=== PATIENT | male | born 1970 | race Caucasian/White ===

== ENCOUNTER 2020-05-25 18:30 | Outpatient (RCR) | payer BC, SELFPAY | END 2020-05-28 23:55 | disposition home or self-care (01) | LOC: HO.PAOS 18:30 | PROVIDERS: Visit Provider Psychologist | DX: F41.9 Anxiety disorder, unspecified (principal); F43.10 Post-traumatic stress disorder, unspecified; F33.1 Major depressive disorder, recurrent, moderate | CPT/HCPCS: 90834 ==

== ENCOUNTER 2021-03-01 14:01 | Inpatient (IN) | payer OTHER, SELFPAY ==
--- NOTE | ~2021-03-01 | XR_ITS ---
EXAMINATION: XR CHEST CLINICAL INFORMATION: SOB. COMPARISON: None TECHNIQUE: Frontal view of the chest was obtained. FINDINGS: The chest x-ray is rotated to the left. The lungs are expanded with slight increased patchy opacity in the left lung base retrocardiac area.. Rest of lungs are clear. The heart size and pulmonary vascularity is normal. XR/XR chest 1V IMPRESSION: Mild patchy opacity left lower lobe retrocardiac area. Question artifact versus infiltrate. Consider repeat 2 views .
--- NOTE | ~2021-03-01 | CT_ITS ---
EXAMINATION: CT ANGIOGRAM OF THE CHEST WITH AND WITHOUT CONTRAST (CT PULMONARY ANGIOGRAM FOR PE) CLINICAL INFORMATION: Reason for Exam elevated D-dimer COMPARISON: Chest radiograph yesterday TECHNIQUE: Prior to contrast administration, noncontrast localization images were obtained. Subsequently, multidetector volumetric imaging was performed from the thoracic inlet to below the diaphragms following the administration of 85 mL Omnipaque 350 intravenous contrast. No contrast reaction reported Sagittal, coronal, and MIP oblique sagittal reformatted images were obtained on the CT workstation, uploaded to PACS, and reviewed. This CT examination was performed using dose optimization techniques as appropriate, variously including the following: *Automated exposure control *Adjustment of mA and/or kV according to patient size (this includes techniques or standardized protocols for targeted exams where dose is matched to indication/reason for exam; i.e. extremities or head) *Use of iterative reconstruction technique Total exam dose-length product 1274 mGy-cm FINDINGS: QUALITY OF STUDY/CONTRAST BOLUS: Suboptimal to Satisfactory. The bolus is not optimal and there is marked respiratory artifact due to the patient's inability to hold their breath. PULMONARY ARTERIES: No central or large segmental pulmonary emboli. THORACIC AORTA: No aneurysm or dissection. LUNG: Left basilar atelectasis is present. A tiny 3 mm right upper lobe nodule is seen (18:129). PLEURA: No pleural effusion or pneumothorax. MEDIASTINUM: Normal heart size. No pericardial effusion. No hilar or mediastinal lymphadenopathy. No evidence of septal bowing or right heart strain. CHEST WALL/AXILLA: No axillary or internal mammary lymphadenopathy. OSSEOUS STRUCTURES: No acute or suspicious osseous abnormality. Mild degenerative changes present in the spine. UPPER ABDOMEN: Unremarkable. No reflux of contrast into the hepatic veins to suggest elevated right heart pressures. CT/CT angio chest PE protocol IMPRESSION: No evidence of pulmonary emboli. Suboptimal study probably because of marked motion artifact. VTE: negative, but limited as described above.
--- NOTE | ~2021-03-01 | CT_ITS ---
CT HEAD WITHOUT IV CONTRAST INDICATION: Delirium. COMPARISON: None available. TECHNIQUE: Multidetector CT acquisitions of the head was obtained without IV contrast. This CT examination was performed using dose optimization techniques as appropriate, variously including the following: *Automated exposure control *Adjustment of mA and/or kV according to patient size (this includes techniques or standardized protocols for targeted exams where dose is matched to indication/reason for exam; i.e. extremities or head) *Use of iterative reconstruction technique FINDINGS: There is no intracranial hemorrhage, hydrocephalus, extra-axial surface collection, midline shift, or other herniation pattern. Yanez to white matter differentiation is diffusely maintained without evidence of an evolved acute territorial infarct. The basilar cisterns are preserved. Soft tissue calcification within the left face. No acute osseous abnormality. The paranasal sinuses and the mastoid air cells are well aerated. CT/CT head/brain wo con IMPRESSION: No acute intracranial abnormality.
--- NOTE | 2021-03-01 14:12 | ED_ITS ---
HPI - Psych General Chief Complaint: Psychiatric Symptoms Stated Complaint: SECTION 12,SEEN IN THE COMMUNITY BY N Time Seen by Provider: 03/01/21 14:12 Source: patient and EMS Mode of arrival: EMS Limitations: other (not speaking, mumbling nodding yes or no) History of Present Illness MD complaint: feels depressed, anxiety and other (delusions) Onset (ago): unknown Duration: getting worse History of same: Yes Relieving factors: none Exacerbating factors: none Context: other Associated psychiatric symptoms: depression Associated symptoms: denies other symptoms Treatments prior to arrival: placed on mental health hold (bed search from community) Related Data Home Medications Medication Instructions Recorded Confirmed atorvastatin 20 mg tablet 1 tab PO BEDTIME 03/01/21 03/01/21 empagliflozin 10 mg tablet 1 tab PO QAM 03/01/21 03/01/21 (Jardiance) glipizide 10 mg tablet, extended 1 tab PO DAILY 03/01/21 03/01/21 release 24 hr lorazepam 1 mg tablet 1 mg PO TID 03/01/21 03/01/21 metformin 1,000 mg tablet 1 tab PO BID 03/01/21 03/01/21 multivitamin 1 tab PO DAILY 03/01/21 03/01/21 olanzapine 10 mg tablet 10 mg PO BEDTIME 03/01/21 03/01/21 sertraline 100 mg tablet 2 tab PO QAM 03/01/21 03/01/21 Allergies Allergy/AdvReac Type Severity Reaction Status Date / Time No Known Allergies Allergy Unverified 03/05/20 17:38 [No Known Allergies*] Review of Systems Review of Systems: ROS unable to be obtained due to patient not cooperating [facility] Past Medical History Attestation statement: The following information was validated with the patient. Medical History (Updated 03/01/21 @ 15:17 by Yudith Sanders DO) Bipolar 1 disorder Depression Diabetes Social History Social History (Updated 03/01/21 @ 14:19 by Yudith Sanders DO) Patient Tobacco Use Status: Tobacco use Unknown Use of substances other than those prescribed or required for medical reasons: Unknown Advance Directives: No Advance Directives Information Provided: Yes Physical Exam Vital Signs: Vital Signs: Last Vital Signs Pulse 92 03/01/21 16:32 Resp 16 03/01/21 16:32 BP 142/89 H 03/01/21 16:32 Pulse Ox 97 09/13/21 16:32 Body Mass Index 27.6 Appearance: Alert. Withdrawn only nods yes or no. Anxious mild acute distress. Eyes: Pupils equal, round and reactive to light. ENT: Pharynx normal. Neck: Normal inspection. Neck supple. CVS: tachycardic heart rate and rhythm. Pulses normal. Respiratory: No respiratory distress. Breath sounds normal. Abdomen: Soft and nontender. Skin: Skin warm and dry. Normal skin color. Normal skin turgor. Extremities: No lower extremity edema. No calf ttp Neuro: tracks with eyes, follows commands but will not participate, steady gait Psych: unable to participate will not answer questions, information obtained from section 12. Course Course Course Narrative: .Physician observation started at 316pm Patient placed in physician observation because the patient needed more time for [facility] to assess inpatient needs as well as placement. At the time observation was started the patient's vitals were stable, patient is alert but not conversant, Neuro: nonfocal, CV RRR, Lungs clear signed out pending placement MDM - Psych MDM Narrative Medical decision making narrative: 50 yo male with DM, bipolar, depression comes in with c/o delusions, depression - he is a bed search from the community will obtain labs, PRN ativan, hold and observe until placement. He denies medical complaints at this time Lab Data Result diagrams: 03/01/21 14:49 03/01/21 14:49 Labs: Lab Results 03/01/21 03/01/21 03/01/21 Range/Units 14:37 14:49 14:49 WBC 11.7 H (4.8-10.8) X10*3/uL RBC 5.27 (4.60-5.80) X10*6/uL Hgb 14.5 (14.0-18.0) g/dl Hct 44.2 (42-52) % MCV 83.9 (80-98) fL MCH 27.5 (27.0-33.0) pg MCHC 32.8 (31.0-36.0) g/dl RDW 13.9 (11.0-16.0) % Plt Count 277 (160-400) X10*3/uL MPV 11.0 (9.4-12.4) fL Immature Gran % (Auto) 0.6 H (0.0-0.4) % Neut % (Auto) 78.6 H (45-73) % Lymph % (Auto) 13.9 L (20-40) % Dickenson % (Auto) 6.6 (2-11) % Eos % (Auto) 0.0 (0-4) % Baso % (Auto) 0.3 (0-2) % Lymph # (Auto) 1.6 (1.2-4.9) X10*3/uL Dickenson # (Auto) 0.8 (0.1-1.2) X10*3/uL Eos # (Auto) 0.0 (0.0-0.4) X10*3/uL Baso # (Auto) 0.0 (0.0-0.2) X10*3/uL Abs Immat Gran (auto) 0.07 H (0.00-0.03) X10*3/uL Absolute Neuts (auto) 9.2 H (2.0-8.3) X10*3/uL Absolute Nucleated RBC 0.000 (0.0-0.012) X10*3/uL Nucleated RBC % (auto) 0.0 (0.0-0.2) /100WBC Sodium 143 (135-145) mmol/L Potassium 4.0 (3.3-5.1) mmol/L Chloride 107 (96-108) mmol/L Carbon Dioxide 21 L (22-29) mmol/L Anion Gap 19 (12-20) BUN 30 H (9-16) mg/dL Creatinine 1.16 (0.5-1.4) mg/dL Estim Creat Clear Calc 87.0 Estimated GFR > 60 Random Glucose 141 H (60-115) mg/dL Calcium 10.6 H (8.4-10.2) mg/dL Total Bilirubin 0.5 (0.0-1.0) mg/dL Direct Bilirubin 0.2 (0.0-0.5) mg/dL AST 22 (5-37) U/L ALT 46 H (0-40) U/L Alkaline Phosphatase 105 (39-117) U/L Total Protein 8.2 H (6.5-8.0) g/dL Albumin 5.5 H (3.5-5.0) g/dL Ethyl Alcohol mg/dL COVID-19 (JUDITH) Negative (Negative) COVID-19 Clin Com See Note 03/01/21 Range/Units 14:49 WBC (4.8-10.8) X10*3/uL RBC (4.60-5.80) X10*6/uL Hgb (14.0-18.0) g/dl Hct (42-52) % MCV (80-98) fL MCH (27.0-33.0) pg MCHC (31.0-36.0) g/dl RDW (11.0-16.0) % Plt Count (160-400) X10*3/uL MPV (9.4-12.4) fL Immature Gran % (Auto) (0.0-0.4) % Neut % (Auto) (45-73) % Lymph % (Auto) (20-40) % Dickenson % (Auto) (2-11) % Eos % (Auto) (0-4) % Baso % (Auto) (0-2) % Lymph # (Auto) (1.2-4.9) X10*3/uL Dickenson # (Auto) (0.1-1.2) X10*3/uL Eos # (Auto) (0.0-0.4) X10*3/uL Baso # (Auto) (0.0-0.2) X10*3/uL Abs Immat Gran (auto) (0.00-0.03) X10*3/uL Absolute Neuts (auto) (2.0-8.3) X10*3/uL Absolute Nucleated RBC (0.0-0.012) X10*3/uL Nucleated RBC % (auto) (0.0-0.2) /100WBC Sodium (135-145) mmol/L Potassium (3.3-5.1) mmol/L Chloride (96-108) mmol/L Carbon Dioxide (22-29) mmol/L Anion Gap (12-20) BUN (9-16) mg/dL Creatinine (0.5-1.4) mg/dL Estim Creat Clear Calc Estimated GFR Random Glucose (60-115) mg/dL Calcium (8.4-10.2) mg/dL Total Bilirubin (0.0-1.0) mg/dL Direct Bilirubin (0.0-0.5) mg/dL AST (5-37) U/L ALT (0-40) U/L Alkaline Phosphatase (39-117) U/L Total Protein (6.5-8.0) g/dL Albumin (3.5-5.0) g/dL Ethyl Alcohol < 10 mg/dL COVID-19 (JUDITH) (Negative) COVID-19 Clin Com Discharge Plan Discharge Clinical Impression: Bipolar disorder Qualifiers: Active/Remission status: currently active Current bipolar episode type: depressed Current episode severity: moderate Qualified Code(s): F31.32 - Bipolar disorder, current episode depressed, moderate Prescriptions: No Action atorvastatin 20 mg tablet 1 tab PO BEDTIME RF: 0 glipizide 10 mg tablet extended release 24hr 1 tab PO DAILY RF: 0 sertraline 100 mg tablet 2 tab PO QAM RF: 0 metformin 1,000 mg tablet 1 tab PO BID RF: 0 Jardiance 10 mg tablet 1 tab PO QAM RF: 0 multivitamin Tablet 1 tab PO DAILY RF: 0 olanzapine 10 mg Tablet 10 mg PO BEDTIME RF: 0 lorazepam 1 mg Tablet 1 mg PO TID RF: 0
[2021-03-01 14:18] VITALS: BP 154/100; BP 156/94; PULSE 95; PULSE 96; RESP 18; O2SAT 97; O2SAT 98; BMI 27.6
[2021-03-01 14:53] LABS: MANUAL DIFF FLAG NO
[2021-03-01] MEDS: LORazepam 1 MG TABLET PO ×2 (14:54→20:47)
[2021-03-01 14:57] LABS: Basophils Percent Auto 0.3 % (0-2); Hematocrit 44.2 % (42-52); Hemoglobin 14.5 g/dl (14.0-18.0); Imm Gran Abs Auto 0.07 X10*3/uL (0.00-0.03); Imm Gran Pct Auto 0.6 % (0.0-0.4); Lymphocytes Absolute Auto 1.6 X10*3/uL (1.2-4.9); Lymphocytes Percent Auto 13.9 % (20-40); Mean Corpuscular HGB Conc 32.8 g/dl (31.0-36.0); Mean Corpuscular Hemoglobin 27.5 pg (27.0-33.0); Mean Corpuscular Volume 83.9 fL (80-98); Monocytes Absolute Auto 0.8 X10*3/uL (0.1-1.2); Monocytes Percent Auto 6.6 % (2-11); Neutrophils Absolute Auto 9.2 X10*3/uL (2.0-8.3); Neutrophils Percent Auto 78.6 % (45-73); Platelet Count 277 X10*3/uL (160-400); Red Blood Count 5.27 X10*6/uL (4.60-5.80); Red Cell Distribution Width 13.9 % (11.0-16.0); White Blood Count 11.7 X10*3/uL (4.8-10.8)
[2021-03-01 15:01] LABS: COVID-19 Test Negative (Negative); IDNOW Serial# 9DD0AD1C
[2021-03-01 15:11] LABS: Ethanol < 10 mg/dL
[2021-03-01 15:14] LABS: Alanine Aminotransferase 46 U/L (0-40); Albumin Level 5.5 g/dL (3.5-5.0); Alkaline Phosphatase 105 U/L (39-117); Anion Gap 19 (12-20); Aspartate Amino Transferase 22 U/L (5-37); Bilirubin Direct 0.2 mg/dL (0.0-0.5); Bilirubin Total 0.5 mg/dL (0.0-1.0); Blood Urea Nitrogen 30 mg/dL (9-16); Calcium 10.6 mg/dL (8.4-10.2); Carbon Dioxide 21 mmol/L (22-29); Chloride 107 mmol/L (96-108); Estimated Glomerular Filt Rate > 60; Glucose Random 141 mg/dL (60-115); Sodium 143 mmol/L (135-145); Total Protein 8.2 g/dL (6.5-8.0)
--- NOTE | 2021-03-01 15:49 | HE.PHANOTE ---
Pharmacy Consult ? Medication Reconciliation Pharmacy has completed the medication reconciliation and there were no significant medication issues requiring provider attention.? Beronica KauffmanD
[2021-03-01 16:32] VITALS: BP 142/89; PULSE 92; RESP 16; O2SAT 97
--- NOTE | 2021-03-01 16:59 | PC.NURSE ---
Suzi - [phone] would like to be updated when pt placed
[2021-03-01] MEDS: OLANZapine 10 MG TABLET PO (20:47)
[2021-03-01] MEDS: metFORMIN HCl 1,000 MG TABLET 1000 MG PO (20:47)
[2021-03-01] MEDS: Atorvastatin Calcium 20 MG TABLET PO (20:47)
[2021-03-01 23:49] VITALS: BP 149/101; PULSE 120; RESP 18; TEMP 36.4; O2SAT 96
--- NOTE | 2021-03-02 | ECG_ITS ---
Test Reason : TACHYCARDIA Blood Pressure : / mmHG Vent. Rate : 102 BPM Atrial Rate : 102 BPM P-R Int : 160 ms QRS Dur : 084 ms QT Int : 302 ms P-R-T Axes : 034 051 032 degrees QTc Int : 393 ms Sinus tachycardia Otherwise normal ECG When compared with ECG of 02-MAR-2021 09:30, No significant change was found Referred By: Lisandro Quinteros Electronically Signed By:NORRIS LYONS
--- NOTE | 2021-03-02 00:02 | PC.NURSE ---
Patient is up wandering in hallway, grossly disoriented, compliant with his medication, delayed response, will continue to monitor.
[2021-03-02 01:04] LABS: Glucose, Whole Blood 155 mg/dL (60-115)
[2021-03-02 01:04] LABS: Glucose, Whole Blood 161 mg/dL (60-115)
[2021-03-02] MEDS: diphenhydrAMINE HCL 25 MG TABLET 50 MG PO (01:23)
[2021-03-02] MEDS: OLANZapine 10 MG TABLET PO (01:23)
--- NOTE | 2021-03-02 06:15 | PC.NURSE ---
Patient is currently in bed appears sleeping, respiration +/=/non-labored bilaterally, patient was up until 0430, wandering in hallway, behavior disoriented, affect flat, non-verbal, delayed response, alert and oriented x 0, administered Olanzapine 10 mg and Benadryl 50 mg at 0100 with no immediate effect, patient was seen by N, disposition per N is section 12 inpatient bed search, patient got pre-accepted to [facility], patient incontinence of bladder, will continue to monitor.
[2021-03-02] MEDS: Multivitamin TABLET 1 TAB PO (08:27)
[2021-03-02] MEDS: LORazepam 1 MG TABLET PO ×2 (08:27→18:08)
[2021-03-02] MEDS: Sertraline HCL 100 MG TABLET 200 MG PO (08:27)
[2021-03-02] MEDS: metFORMIN HCl 1,000 MG TABLET 1000 MG PO (08:27)
--- NOTE | 2021-03-02 08:42 | PC.NURSE ---
After much coaxing pt was able to take his medications, pt appears very disorganized at this time, unable to complete full sentences.
[2021-03-02 09:07] VITALS: BP 156/105; PULSE 122; RESP 18; O2SAT 95
[2021-03-02 09:37] LABS: Glucose, Whole Blood 214 mg/dL (60-115)
[2021-03-02] MEDS: 0.9 % Sodium Chloride 1,000 ML 999 ML IVCONT (09:47)
--- NOTE | 2021-03-02 09:48 | PC.NURSE ---
Pt tachycardic anywhere from 120-140, oral mucus membranes noted to be dry, pt refusing to drink, md aware, ekg obtained, 18g placed to right ac and 1l bolus running WO. [facility] outside room 1:1 with pt while he receives his fluids.
[2021-03-02 10:17] VITALS: BP 148/75; PULSE 108; RESP 16; O2SAT 96
--- NOTE | 2021-03-02 11:56 | ECG_ITS ---
Test Reason : TACHYCARDIA Blood Pressure : / mmHG Vent. Rate : 118 BPM Atrial Rate : 118 BPM P-R Int : 156 ms QRS Dur : 084 ms QT Int : 326 ms P-R-T Axes : 067 083 069 degrees QTc Int : 456 ms Sinus tachycardia Possible Anterolateral infarct , age undetermined Abnormal ECG When compared with ECG of 06-AUG-2016 08:20, Vent. rate has increased BY 51 BPM Nonspecific T wave abnormality no longer evident in Inferior leads T wave inversion no longer evident in Anterolateral leads Referred By: Ashli Lomas Electronically Signed By:NORRIS LYONS
[2021-03-02] MEDS: 0.9 % Sodium Chloride 1,000 ML 999 ML IV (12:03)
[2021-03-02 14:06] VITALS: PULSE 93
--- NOTE | 2021-03-02 14:06 | PC.NURSE ---
Late entry: pt pulse was noted to be in the 130's when standing, repeat EKG performed and additional fluids admin per AUG, repeat pulse post fluids 93. Pt resting quietly in bed at this time.
--- NOTE | 2021-03-02 15:26 | PC.NURSE ---
Pt's Darlene called inquiring about pt's status, pt asked if staff could talk to , pt stated clearly no
--- NOTE | 2021-03-02 16:42 | PM.EVENT ---
Event Note Date of Service: 03/02/21 Event Note: pt appears catatonic, with immobility, standing in one place, mute; ordering ativan 2mg IM since pt has been struggling to take PO meds (treatment for catatonia is parenteral ativan; however PO can also be effective). Pt was ordered Ativan TID in ED however, was only able to get him to take 2 doses on 03/01 and one on 03/02. Also, pt was given Zyprexa 10mg on 03/01 and 03/02 in ED. will hold all antipyschotics for now will hold zoloft for now ordered ativan 2mg IM now dose ordered ativan 1mg QID PO (if patient is able to tolerate) discussed case with charge nurse who knows to hold off antipsychotic meds.
[2021-03-02] MEDS: LORazepam 2 MG/ML VIAL IM (16:48)
--- NOTE | 2021-03-02 17:11 | PC.NURSE ---
PT GIVEN IM ATIVAN 2MG AT 1650 FOR CATATONIA. SEEN BY MD MYLA RENE WITHIN THE HOUR. PT REFUSING VITAL SIGNS HOWEVER IS BEING MONITORED FOR ADVERSE EFFECTS. MED RESTRAINT PAPERWORK COMPLETED.
--- NOTE | 2021-03-02 18:20 | PC.ADMIT ---
PT IS A 50 YEAR OLD RUTH WHO [place] [facility] [place] ON A SECTION 12 PT DID SIGN A CONDITIONAL VOLUNTARY. PT HAS HAD INCREASED PSYCHOSIS MARKED BY DELUSIONS. PT HAS CATATONIC FEATURES. 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 PT WAS UNABLE TO SPEAK TO COMPLETE HIS ASSESSMENT AND ADMISSION. PTS ADMISSION WAS DONE BASED ON CRISIS ASSESSMENT. PT HAS A HISTORY OF 1 INPATIENT ADMISSION FOR A PSYCHOTIC BREAK IN 2007. PT HAS OUTPATIENT PROVIDERS BUT WAS UNABLE TO PROVIDE INFORMATION/SIGN RELEASES DUE TO MENTAL STATE AT THIS TIME. PTS PROVIDERS ARE LISTED IN CRISIS ASSESSMENT. 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 PTS TOX SCREEN WAS NEGATIVE. HE IS NOT A KNOWN SMOKER. PT IS COVID NEGATIVE. HE DID REFUSE VITAL SIGNS UPON ADMISSION.
[2021-03-02] MEDS: LORazepam 1 MG TABLET 2 MG PO (20:12)
[2021-03-03 06:00] VITALS: PULSE 90; RESP 18; TEMP 36.9; O2SAT 93
--- NOTE | 2021-03-03 06:17 | PC.NURSE ---
PT HAS OPEN WOUNDS ON BOTH KNEES. LEFT KNEE WOUND IS ROUND,APPROXIMATELY 1/2 INCH IN DIAMETER. THE RIGHT KNEE HAS 2 SMALL WOUNDS ON EITHER SIDE OF THE KNEE. NO DRAINAGE NOTED.
[2021-03-03] MEDS: LORazepam 1 MG TABLET 2 MG PO ×3 (09:18→20:10)
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
[2021-03-03 12:40] LABS: MANUAL DIFF FLAG NO
[2021-03-03 12:42] LABS: Basophils Percent Auto 0.3 % (0-2); Hematocrit 40.5 % (42-52); Hemoglobin 13.1 g/dl (14.0-18.0); Imm Gran Abs Auto 0.06 X10*3/uL (0.00-0.03); Imm Gran Pct Auto 0.5 % (0.0-0.4); Lymphocytes Percent Auto 16.6 % (20-40); Mean Corpuscular HGB Conc 32.3 g/dl (31.0-36.0); Mean Corpuscular Hemoglobin 27.5 pg (27.0-33.0); Mean Corpuscular Volume 85.1 fL (80-98); Mean Platelet Volume 10.6 fL (9.4-12.4); Monocytes Absolute Auto 0.9 X10*3/uL (0.1-1.2); Monocytes Percent Auto 7.8 % (2-11); Neutrophils Absolute Auto 8.8 X10*3/uL (2.0-8.3); Neutrophils Percent Auto 74.8 % (45-73); Platelet Count 265 X10*3/uL (160-400); Red Blood Count 4.76 X10*6/uL (4.60-5.80); White Blood Count 11.8 X10*3/uL (4.8-10.8)
[2021-03-03 12:56] LABS: Calcium 10.3 mg/dL (8.4-10.2)
[2021-03-03 12:59] LABS: Anion Gap 18 (12-20); Blood Urea Nitrogen 33 mg/dL (9-16); Carbon Dioxide 20 mmol/L (22-29); Chloride 114 mmol/L (96-108); Creatinine Clr Calc Pharmacy 94.3; Estimated Glomerular Filt Rate > 60; Potassium 3.5 mmol/L (3.3-5.1); Sodium 148 mmol/L (135-145)
[2021-03-03 13:05] LABS: Alanine Aminotransferase 37 U/L (0-40); Alkaline Phosphatase 91 U/L (39-117); Aspartate Amino Transferase 47 U/L (5-37); Bilirubin Direct 0.3 mg/dL (0.0-0.5); Bilirubin Total 0.8 mg/dL (0.0-1.0); Total Protein 7.1 g/dL (6.5-8.0)
[2021-03-03 13:24] LABS: Ammonia 29 umol/L (13-55)
--- NOTE | 2021-03-03 17:18 | HO.HSGERICON ---
History of Present Illness Data of Consult Service Date: 03/03/21 [place] [facility] [place] Primary Care Provider: Talat Snow MD HPI Reason for consult: DM management 50yo M with DM2, bipolar I, depression Admitted to [facility] and catatonic Medicine consult requested for management of DM2 given pt is not eating and barely drinking Unable to obtain ROS due to pt's catatonia Review of Systems Review of Systems: Yes Unobtainable due to mental status PMFSH Medical History Bipolar 1 disorder Depression Diabetes Cognitive capacity: unable to obtain; pt catatonic Pertinent family history: unable to obtain; pt catatonic Social History Household Members: Spouse Housing: Unknown / Unable to assess Do you presently have visiting nurse or other home services: No Unable to assess alcohol history related to: Unable to respond and Unknown Patient Tobacco Use Status: Tobacco use Unknown Use of substances other than those prescribed or required for medical reasons: Unable to respond Currently Displaying Signs/Symptoms of Drug Intoxication Withdrawal: No Advance Directives: No Advance Directives Information Provided: No Advance Directives on File: No Do you have thoughts of harming others: None Do you have a plan to hurt others: No Plan Recently lost weight without trying: Unsure Nutrition Risks: Difficulty chewing and Difficulty swallowing Poor oral hygiene: Yes service: No Sexual orientation: Straight/Heterosexual Meds Allergies Allergy/AdvReac Type Severity Reaction Status Date / Time No Known Allergies Allergy Unverified 03/05/20 17:38 [No Known Allergies*] Active Medications: Current Medications Generic Name Dose Route Start Last Admin Trade Name Freq PRN Reason Stop Dose Admin Acetaminophen 650 mg 03/02/21 16:18 Acetaminophen 325 Mg Tablet PO Q6H PRN Headache/Pain Mild Scale (1-3) Al Hydroxide/Mg Hydroxide 30 ml 03/02/21 16:18 Magnesium Hydrox/Alum Hydrox 30 Ml Oral.Susp PO Q6H PRN Heartburn/Nausea Atorvastatin Calcium 20 mg 03/01/21 21:00 03/02/21 20:52 Atorvastatin Calcium 20 Mg Tablet PO Not Given BEDTIME [facility] Dextrose 25 gm 03/03/21 16:49 Dextrose 50 % 25 Gm/50 Ml Vial IVPUSH Q15M PRN per Hypoglycemia Standing Ord. Protocol Glucose 15 gm 03/03/21 16:49 Glucose Gel 15 Gm Gel..Gram. PO Q15M PRN per Hypoglycemia Standing Ord. Protocol Insulin Human Lispro 0 unit 03/03/21 21:00 Insulin Lispro 100 Unit/Ml 3 Ml Vial SUBCUT QIDACHS [facility] Protocol Lorazepam 2 mg 03/02/21 21:00 03/03/21 12:47 Lorazepam 1 Mg Tablet PO 2 mg QID [facility] Administration Magnesium Hydroxide 30 ml 03/02/21 16:18 Milk Of Magnesia 30 Ml Oral.Susp PO DAILY PRN Constipation Multivitamins/Vitamin C 1 tab 03/02/21 09:00 03/03/21 10:01 Multivitamin Tablet PO Not Given DAILY [facility] Nicotine Polacrilex 4 mg 03/02/21 16:18 Nicotine Polacrilex 2 Mg Gum BUCCAL Q2H PRN Nicotine Cravings Pharmacy Consult 1 each 03/01/21 14:11 Consult Rx Perform Med Rec MISCELLANE ONCE PRN Consult order Home Medications Medication Instructions Recorded Confirmed Last Taken Type atorvastatin 20 mg tablet 1 tab PO BEDTIME 03/01/21 03/01/21 02/28/21 History empagliflozin 10 mg tablet 1 tab PO QAM 03/01/21 03/01/21 02/28/21 History (Jardiance) glipizide 10 mg tablet, extended 1 tab PO DAILY 03/01/21 03/01/21 02/28/21 History release 24 hr lorazepam 1 mg tablet 1 mg PO TID 03/01/21 03/01/21 03/01/21 History metformin 1,000 mg tablet 1 tab PO BID 03/01/21 03/01/21 02/28/21 History multivitamin 1 tab PO DAILY 03/01/21 03/01/21 02/28/21 History olanzapine 10 mg tablet 10 mg PO BEDTIME 03/01/21 03/01/21 Unknown History sertraline 100 mg tablet 2 tab PO QAM 03/01/21 03/01/21 03/01/21 History Results Labs CBC and Chem 7: 03/03/21 12:36 03/03/21 12:36 Labs: Laboratory Results - last 24 hr 03/03/21 03/03/21 03/03/21 12:36 12:36 12:36 MCV 85.1 MCH 27.5 MCHC 32.3 RDW 14.0 Plt Count 265 MPV 10.6 Immature Gran % (Auto) 0.5 H Neut % (Auto) 74.8 H Lymph % (Auto) 16.6 L [place] % (Auto) 7.8 Eos % (Auto) 0.0 Baso % (Auto) 0.3 Lymph # (Auto) 2.0 [place] # (Auto) 0.9 Eos # (Auto) 0.0 Baso # (Auto) 0.0 Abs Immat Gran (auto) 0.06 H Absolute Neuts (auto) 8.8 H Absolute Nucleated RBC 0.000 Nucleated RBC % (auto) 0.0 Anion Gap 18 Estim Creat Clear Calc 94.3 Estimated GFR > 60 Calcium Total Bilirubin 0.8 Direct Bilirubin 0.3 AST 47 H D ALT 37 Alkaline Phosphatase 91 Ammonia Total Protein 7.1 Albumin 5.0 03/03/21 03/03/21 12:36 12:36 MCV MCH MCHC RDW Plt Count MPV Immature Gran % (Auto) Neut % (Auto) Lymph % (Auto) [place] % (Auto) Eos % (Auto) Baso % (Auto) Lymph # (Auto) [place] # (Auto) Eos # (Auto) Baso # (Auto) Abs Immat Gran (auto) Absolute Neuts (auto) Absolute Nucleated RBC Nucleated RBC % (auto) Anion Gap Estim Creat Clear Calc Estimated GFR Calcium 10.3 H Total Bilirubin Direct Bilirubin AST ALT Alkaline Phosphatase Ammonia 29 Total Protein Albumin Assessment and Plan (1) Type 2 diabetes mellitus: Status: Acute 50yo M with DM2, bipolar I, depression admitted to [facility], mute and catatonic, medical consult requested for management of DM2 given pt is not eating and barely drinking # DM2 - hold OHGs [MTF, GPZ, empagliflozin] and use sliding-scale Humalog - check A1c - may resume OHGs once taking POs # hyperNa, mild - encourage free water intake - if Na >150, may need IV D5W # catatonia - management as per psychiatry team Thank you for this consult. We are signing off. Please feel free to call should any new medical issues arise. Physical Exam Vital Signs: Last Vital Signs Temp 98.4 F 03/03/21 06:00 Pulse 90 03/03/21 06:00 Resp 18 03/03/21 06:00 BP 148/75 H 03/02/21 10:17 Pulse Ox 93 03/03/21 06:00 Body Mass Index 27.6 Gen: mute HEENT: sclera anicteric, moist mucus membranes Neck: supple Lungs: clear to auscultation bilaterally Heart: regular rate and rhythm, no murmurs Abd: soft, non-tender, non-distended Ext: no edema Skin: warm/well-perfused Neuro: alert, unable to assess orientation, not cooperative with exam Psych: catatonic Neuro Cranial nerves: Yes Other cranial nerve findings present (unable to assess due to catatonia/mutism)
[2021-03-03 18:00] VITALS: BP 142/84; PULSE 86; RESP 16; TEMP 36.6
[2021-03-03] MEDS: Atorvastatin Calcium 20 MG TABLET PO (20:09)
[2021-03-03 20:23] LABS: Glucose, Whole Blood 147 mg/dL (60-115)
[2021-03-04] MEDS: OLANZapine 10 MG TABLET PO (00:24)
[2021-03-04 06:00] VITALS: BP 167/102; PULSE 101; RESP 16; TEMP 36; O2SAT 96
[2021-03-04 08:09] LABS: Glucose, Whole Blood 186 mg/dL (60-115)
[2021-03-04] MEDS: LORazepam 1 MG TABLET 2 MG PO ×2 (08:41→14:14)
[2021-03-04] MEDS: Insulin Lispro 100 UNIT/ML 3 ML VIAL SUBCUT ×3 (08:41→21:56)
[2021-03-04] MEDS: Multivitamin TABLET 1 TAB PO (08:42)
[2021-03-04 08:55] LABS: Estimated Average Glucose 146 mg/dL; Hemoglobin A1c % 6.7 %
[2021-03-04 09:09] LABS: Anion Gap 21 (12-20); Blood Urea Nitrogen 41 mg/dL (9-16); Calcium 10.8 mg/dL (8.4-10.2); Carbon Dioxide 18 mmol/L (22-29); Chloride 111 mmol/L (96-108); Creatinine Clr Calc Pharmacy 74.8; Estimated Glomerular Filt Rate 56; Glucose Random 183 mg/dL (60-115); Sodium 146 mmol/L (135-145)
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
[2021-03-04 12:24] LABS: Glucose, Whole Blood 191 mg/dL (60-115)
[2021-03-04 17:13] LABS: Glucose, Whole Blood 174 mg/dL (60-115)
[2021-03-04 18:00] VITALS: BP 140/72; PULSE 99; RESP 16; TEMP 37.1; O2SAT 96
[2021-03-04] MEDS: Dextrose 5 % and 0.45 % NaCl 1,000 ML 125 ML IVCONT (18:22)
[2021-03-04] MEDS: LORazepam 2 MG/ML VIAL IVPUSH ×2 (18:25→21:33)
[2021-03-04 21:47] LABS: Glucose, Whole Blood 212 mg/dL (60-115)
--- NOTE | 2021-03-05 | ECG_ITS ---
Test Reason : ECT PREP Blood Pressure : / mmHG Vent. Rate : 084 BPM Atrial Rate : 084 BPM P-R Int : 158 ms QRS Dur : 080 ms QT Int : 294 ms P-R-T Axes : 005 047 058 degrees QTc Int : 347 ms Normal sinus rhythm Nonspecific T wave abnormality Abnormal ECG When compared with ECG of 02-MAR-2021 12:09, Nonspecific T wave abnormality is now Present Referred By: Fredo Prieto Electronically Signed By:NORRIS LYONS
[2021-03-05] MEDS: Dextrose 5 % and 0.45 % NaCl 1,000 ML 125 ML IVCONT ×2 (02:14→09:55)
[2021-03-05 08:40] LABS: Glucose, Whole Blood 179 mg/dL (60-115)
[2021-03-05 08:55] VITALS: BP 172/87; PULSE 87; RESP 24; TEMP 36.2; O2SAT 96
[2021-03-05] MEDS: LORazepam 2 MG/ML VIAL IVPUSH ×4 (09:19→22:30)
[2021-03-05] MEDS: 0.9 % Sodium Chloride Flush 3 ML SYRINGE IVFLUSH ×2 (09:19→15:42)
[2021-03-05 09:39] LABS: MANUAL DIFF FLAG NO
[2021-03-05 09:44] LABS: Basophils Percent Auto 0.2 % (0-2); Hematocrit 40.6 % (42-52); Hemoglobin 13.2 g/dl (14.0-18.0); Imm Gran Abs Auto 0.08 X10*3/uL (0.00-0.03); Imm Gran Pct Auto 0.9 % (0.0-0.4); Lymphocytes Absolute Auto 1.6 X10*3/uL (1.2-4.9); Lymphocytes Percent Auto 18.2 % (20-40); Mean Corpuscular HGB Conc 32.5 g/dl (31.0-36.0); Mean Corpuscular Hemoglobin 27.3 pg (27.0-33.0); Mean Corpuscular Volume 84.1 fL (80-98); Mean Platelet Volume 11.5 fL (9.4-12.4); Monocytes Absolute Auto 0.6 X10*3/uL (0.1-1.2); Monocytes Percent Auto 7.1 % (2-11); Neutrophils Absolute Auto 6.5 X10*3/uL (2.0-8.3); Neutrophils Percent Auto 73.6 % (45-73); Platelet Count 252 X10*3/uL (160-400); Red Blood Count 4.83 X10*6/uL (4.60-5.80); Red Cell Distribution Width 13.9 % (11.0-16.0); White Blood Count 8.9 X10*3/uL (4.8-10.8)
[2021-03-05 10:16] LABS: Alanine Aminotransferase 51 U/L (0-40); Albumin Level 4.6 g/dL (3.5-5.0); Alkaline Phosphatase 88 U/L (39-117); Anion Gap 12 (12-20); Aspartate Amino Transferase 72 U/L (5-37); Bilirubin Direct 0.3 mg/dL (0.0-0.5); Bilirubin Total 0.7 mg/dL (0.0-1.0); Blood Urea Nitrogen 36 mg/dL (9-16); Carbon Dioxide 24 mmol/L (22-29); Chloride 116 mmol/L (96-108); Creatinine Clr Calc Pharmacy 92.6; Estimated Glomerular Filt Rate > 60; Lactate Dehydrogenase 235 U/L (118-273); Potassium 3.3 mmol/L (3.3-5.1); Sodium 149 mmol/L (135-145); Total Protein 6.6 g/dL (6.5-8.0)
--- NOTE | 2021-03-05 10:32 | PM.CNCAR ---
History of Present Illness History of Present Illness Date of Service: 03/05/21 Requesting physician: Fredo Prieto Chief complaint: acute psychosis, pre ECT assessment Narrative: 50-year-old gentleman who is in catatonic state and will need electroconvulsive therapy. We have been asked to assess his gabriele procedural risk. Patient is catatonic and no history is available. He has background of diabetes and bipolar disorder. EKG and labs were reviewed. He has hypernatremia which is likely due to poor oral intake. [facility] Past Medical History Medical History Bipolar 1 disorder Depression Diabetes Social History Social History Household Members: Spouse Housing: Unknown / Unable to assess Do you presently have visiting nurse or other home services: No Unable to assess alcohol history related to: Unable to respond and Unknown Patient Tobacco Use Status: Tobacco use Unknown Use of substances other than those prescribed or required for medical reasons: Unable to respond Currently Displaying Signs/Symptoms of Drug Intoxication Withdrawal: No Advance Directives: No Advance Directives Information Provided: No Advance Directives on File: No Do you have thoughts of harming others: None Do you have a plan to hurt others: No Plan Recently lost weight without trying: Unsure Nutrition Risks: Difficulty chewing and Difficulty swallowing Poor oral hygiene: Yes service: No Sexual orientation: Straight/Heterosexual Meds Allergies Allergy/AdvReac Type Severity Reaction Status Date / Time No Known Allergies Allergy Unverified 03/05/20 17:38 [No Known Allergies*] all antipsychotics AdvReac Severe see below Uncoded 03/04/21 09:40 Active Medications: Current Medications Acetaminophen (Acetaminophen 325 Mg Tablet) 650 mg PO Q6H PRN PRN Reason: Headache/Pain Mild Scale (1-3) Al Hydroxide/Mg Hydroxide (Magnesium Hydrox/Alum Hydrox 30 Ml Oral.Susp) 30 ml PO Q6H PRN PRN Reason: Heartburn/Nausea Atorvastatin Calcium (Atorvastatin Calcium 20 Mg Tablet) 20 mg PO BEDTIME [facility] Last Admin: 03/04/21 21:33 Dose: Not Given Documented by: Dextrose (Dextrose 50 % 25 Gm/50 Ml Vial) 25 gm IVPUSH Q15M PRN; Protocol PRN Reason: per Hypoglycemia Standing Ord. Glucose (Glucose Gel 15 Gm Gel..Gram.) 15 gm PO Q15M PRN; Protocol PRN Reason: per Hypoglycemia Standing Ord. Dextrose/Sodium Chloride (D51/2ns) 1,000 mls @ 125 mls/hr IVCONT .Q8H [facility] Last Admin: 03/05/21 09:55 Dose: 125 mls/hr Documented by: Insulin Human Lispro (Insulin Lispro 100 Unit/Ml 3 Ml Vial) 0 unit SUBCUT QIDACHS [facility]; Protocol Last Admin: 03/05/21 10:02 Dose: Not Given Documented by: Lorazepam (Lorazepam 2 Mg/Ml Vial) 2 mg IVPUSH QID [facility] Last Admin: 03/05/21 09:19 Dose: 2 mg Documented by: Magnesium Hydroxide (Milk Of Magnesia 30 Ml Oral.Susp) 30 ml PO DAILY PRN PRN Reason: Constipation Multivitamins/Vitamin C (Multivitamin Tablet) 1 tab PO DAILY [facility] Last Admin: 03/04/21 08:42 Dose: 1 tab Documented by: Nicotine Polacrilex (Nicotine Polacrilex 2 Mg Gum) 4 mg BUCCAL Q2H PRN PRN Reason: Nicotine Cravings Pharmacy Consult (Consult Rx Perform Med Rec) 1 each MISCELLANE ONCE PRN PRN Reason: Consult order Sodium Chloride (0.9 % Sodium Chloride Flush 3 Ml Syringe) [address] [facility] Last Admin: 03/05/21 09:19 Dose: 3 ml Documented by: Home Medications Medication Instructions Recorded Confirmed Last Taken Type atorvastatin 20 mg tablet 1 tab PO BEDTIME 03/01/21 03/01/21 02/28/21 History empagliflozin 10 mg tablet 1 tab PO QAM 03/01/21 03/01/21 02/28/21 History (Jardiance) glipizide 10 mg tablet, extended 1 tab PO DAILY 03/01/21 03/01/21 02/28/21 History release 24 hr lorazepam 1 mg tablet 1 mg PO TID 03/01/21 03/01/21 03/01/21 History metformin 1,000 mg tablet 1 tab PO BID 03/01/21 03/01/21 02/28/21 History multivitamin 1 tab PO DAILY 03/01/21 03/01/21 02/28/21 History olanzapine 10 mg tablet 10 mg PO BEDTIME 03/01/21 03/01/21 Unknown History sertraline 100 mg tablet 2 tab PO QAM 03/01/21 03/01/21 03/01/21 History Physical Exam Vital Signs: Vital Signs: Last Vital Signs Temp 97.2 F 03/05/21 08:55 Pulse 87 03/05/21 08:55 Resp 24 H 03/05/21 08:55 BP 172/87 H 03/05/21 08:55 Pulse Ox 96 03/05/21 08:55 Body Mass Index 27.6 GENERAL APPEARANCE: Catatonic, mumbling. SKIN: no suspicious lesions, warm and dry. HEART: no murmurs, regular rate and rhythm. LUNGS: clear to auscultation bilaterally. ABDOMEN: soft, nontender. EXTREMITIES: no edema. Results Labs and Meds Result diagrams: 03/05/21 09:32 03/05/21 09:32 Lab results: Laboratory Results - last 24 hr 03/04/21 03/04/21 03/04/21 12:21 17:08 21:42 WBC RBC Hgb Hct MCV MCH MCHC RDW Plt Count MPV Immature Gran % (Auto) Neut % (Auto) Lymph % (Auto) [place] % (Auto) Eos % (Auto) Baso % (Auto) Lymph # (Auto) [place] # (Auto) Eos # (Auto) Baso # (Auto) Abs Immat Gran (auto) Absolute Neuts (auto) Absolute Nucleated RBC Nucleated RBC % (auto) Sodium Potassium Chloride Carbon Dioxide Anion Gap BUN Creatinine Estim Creat Clear Calc Estimated GFR POC Glucose 191 H 174 H 212 H Total Bilirubin Direct Bilirubin AST ALT Alkaline Phosphatase Lactate Dehydrogenase Total Creatine Kinase Total Protein Albumin 03/05/21 03/05/21 03/05/21 08:28 09:32 09:32 WBC 8.9 RBC 4.83 Hgb 13.2 L Hct 40.6 L MCV 84.1 MCH 27.3 MCHC 32.5 RDW 13.9 Plt Count 252 MPV 11.5 Immature Gran % (Auto) 0.9 H Neut % (Auto) 73.6 H Lymph % (Auto) 18.2 L [place] % (Auto) 7.1 Eos % (Auto) 0.0 Baso % (Auto) 0.2 Lymph # (Auto) 1.6 [place] # (Auto) 0.6 Eos # (Auto) 0.0 Baso # (Auto) 0.0 Abs Immat Gran (auto) 0.08 H Absolute Neuts (auto) 6.5 Absolute Nucleated RBC 0.000 Nucleated RBC % (auto) 0.0 Sodium 149 H Potassium 3.3 Chloride 116 H Carbon Dioxide 24 Anion Gap 12 BUN 36 H Creatinine 1.09 Estim Creat Clear Calc 92.6 Estimated GFR > 60 POC Glucose 179 H Total Bilirubin 0.7 Direct Bilirubin 0.3 AST 72 H ALT 51 H Alkaline Phosphatase 88 Lactate Dehydrogenase 235 Total Creatine Kinase 1870 H Total Protein 6.6 Albumin 4.6 Assessment and Plan (1) Preop cardiovascular exam: Status: Acute (2) Bipolar I disorder with catatonia: Status: Acute 50-year-old woman with background of diabetes and bipolar disorder who is presenting in catatonic state. He is being assessed for electroconvulsive therapy. We have been asked to assess his gabriele procedure risk. No history is available from the patient. EKG is unremarkable. In my opinion right now this therapy is required to help his catatonic state. I do not think doing stress testing or revascularization is going to changes risk. I think we can proceed with an intermediate risk for perioperative complications. If you have any concerns and or help is required then please call our service. Signing off for now. Thank you for allowing me to participate in the care of your patient. Please feel free to contact me if you have any questions. Procedures Date of Service Date of Service: 03/05/21
[2021-03-05 11:33] VITALS: BP 138/76; PULSE 82; TEMP 36.6; O2SAT 95
--- NOTE | 2021-03-05 13:10 | HO.PM.IMPN ---
Subjective Subjective Date of Service: 03/05/21 Interval History: Reference is made to my initial consultation from 03/03/21 on this 50yo M with DM2 [A1c 6.7] and bipolar I admitted to [facility] with near-catatonia. The psychiatrist contacted me for concerns of dehydration. In addition, he was noted to have eye redness and facial edema. Per RN, this has resolved. I do not appreciate any eye redness or facial edema. He is more alert today and even verbalizing, though his sentences do not make sense. He is being fed mashed potatoes and applesauce. Review of Systems Review of Systems: Yes Unobtainable due to mental status Physical Exam Vital Signs: Vital Signs: Last Vital Signs Temp 97.9 F 03/05/21 11:33 Pulse 82 03/05/21 11:33 Resp 24 H 03/05/21 08:55 BP 138/76 03/05/21 11:33 Pulse Ox 95 03/05/21 11:33 Body Mass Index 27.6 Gen: in no acute distress HEENT: sclera anicteric, moist mucus membranes Neck: supple Lungs: clear to auscultation bilaterally Heart: regular rate and rhythm, no murmurs Abd: soft, non-tender, non-distended Ext: no edema Skin: warm/well-perfused Neuro: alert, unable to assess orientation Psych: restricted affect Objective Data Active Medications Acetaminophen (Acetaminophen 325 Mg Tablet) 650 mg PO Q6H PRN PRN Reason: Headache/Pain Mild Scale (1-3) Al Hydroxide/Mg Hydroxide (Magnesium Hydrox/Alum Hydrox 30 Ml Oral.Susp) 30 ml PO Q6H PRN PRN Reason: Heartburn/Nausea Atorvastatin Calcium (Atorvastatin Calcium 20 Mg Tablet) 20 mg PO BEDTIME [facility] Last Admin: 03/04/21 21:33 Dose: Not Given Documented by: HALIMA Non-Admin Reason: Patient Asleep Dextrose (Dextrose 50 % 25 Gm/50 Ml Vial) 25 gm IVPUSH Q15M PRN; Protocol PRN Reason: per Hypoglycemia Standing Ord. Glucose (Glucose Gel 15 Gm Gel..Gram.) 15 gm PO Q15M PRN; Protocol PRN Reason: per Hypoglycemia Standing Ord. Insulin Human Lispro (Insulin Lispro 100 Unit/Ml 3 Ml Vial) 0 unit SUBCUT QIDACHS [facility]; Protocol Last Admin: 03/05/21 10:02 Dose: Not Given Documented by: JEANIE Non-Admin Reason: pt did not eat Lorazepam (Lorazepam 2 Mg/Ml Vial) 2 mg IVPUSH QID [facility] Last Admin: 03/05/21 09:19 Dose: 2 mg Documented by: JEANIE Magnesium Hydroxide (Milk Of Magnesia 30 Ml Oral.Susp) 30 ml PO DAILY PRN PRN Reason: Constipation Multivitamins/Vitamin C (Multivitamin Tablet) 1 tab PO DAILY [facility] Last Admin: 03/04/21 08:42 Dose: 1 tab Documented by: EM Nicotine Polacrilex (Nicotine Polacrilex 2 Mg Gum) 4 mg BUCCAL Q2H PRN PRN Reason: Nicotine Cravings Pharmacy Consult (Consult Rx Perform Med Rec) 1 each MISCELLANE ONCE PRN PRN Reason: Consult order Sodium Chloride (0.9 % Sodium Chloride Flush 3 Ml Syringe) 3 ml IVFLUSH QSHIFT [facility] Last Admin: 03/05/21 09:19 Dose: 3 ml Documented by: JEANIE Labs CBC & Chem 7: 03/05/21 09:32 03/05/21 09:32 Labs: Laboratory Results - last 24 hr 03/04/21 03/04/21 03/05/21 17:08 21:42 08:28 MCV MCH MCHC RDW Plt Count MPV Immature Gran % (Auto) Neut % (Auto) Lymph % (Auto) [place] % (Auto) Eos % (Auto) Baso % (Auto) Lymph # (Auto) [place] # (Auto) Eos # (Auto) Baso # (Auto) Abs Immat Gran (auto) Absolute Neuts (auto) Absolute Nucleated RBC Nucleated RBC % (auto) Anion Gap Estim Creat Clear Calc Estimated GFR POC Glucose 174 H 212 H 179 H Total Bilirubin Direct Bilirubin AST ALT Alkaline Phosphatase Lactate Dehydrogenase Total Creatine Kinase Total Protein Albumin 03/05/21 03/05/21 09:32 09:32 MCV 84.1 MCH 27.3 MCHC 32.5 RDW 13.9 Plt Count 252 MPV 11.5 Immature Gran % (Auto) 0.9 H Neut % (Auto) 73.6 H Lymph % (Auto) 18.2 L [place] % (Auto) 7.1 Eos % (Auto) 0.0 Baso % (Auto) 0.2 Lymph # (Auto) 1.6 [place] # (Auto) 0.6 Eos # (Auto) 0.0 Baso # (Auto) 0.0 Abs Immat Gran (auto) 0.08 H Absolute Neuts (auto) 6.5 Absolute Nucleated RBC 0.000 Nucleated RBC % (auto) 0.0 Anion Gap 12 Estim Creat Clear Calc 92.6 Estimated GFR > 60 POC Glucose Total Bilirubin 0.7 Direct Bilirubin 0.3 AST 72 H ALT 51 H Alkaline Phosphatase 88 Lactate Dehydrogenase 235 Total Creatine Kinase 1870 H Total Protein 6.6 Albumin 4.6 Assessment and Plan (1) Rhabdomyolysis: Status: Acute (2) Type 2 diabetes mellitus: Status: Chronic Assessment and Plan: 50yo M with DM2, bipolar I, depression admitted to [facility] with catatonia. He has developed mild rhabdomyolysis and hypernatremia # rhabdomyolysis - changed IV fluids to NS and run at 150 mL/hr; will monitor BMP + CPK. elevated LFTs are likely due to cross-reactivity with CPK but will also screen for chronic HBV/HCV # hypernatremia - mild; encourage free water intake; recheck BMP in am # DM2, A1c 6.7 - held OHGs and giving sliding-scale Humalog given poor PO intake # catatonia - I would not recommend ECT at this time as it may worsen rhabdo # VTE ppx - LMWH We will continue to follow this consult along with you given these new issues Quality Stroke Does the patient have a stroke diagnosis?: No VTE Prior VTE?: No VTE Risk Level:: Medical - moderate - high VTE Device Contraindication: N/A - Device Ordered VTE Drug Contraindication: N/A - Med Ordered
[2021-03-05] MEDS: 0.9 % Sodium Chloride 1,000 ML 150 ML IVCONT (14:29)
[2021-03-05] MEDS: Insulin Lispro 100 UNIT/ML 3 ML VIAL SUBCUT ×2 (17:00→22:30)
[2021-03-05 17:36] LABS: Glucose, Whole Blood 241 mg/dL (60-115)
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
[2021-03-05 18:30] VITALS: BP 150/101; PULSE 131; RESP 16; TEMP 38.2; O2SAT 97
[2021-03-05 22:00] VITALS: BP 152/82; PULSE 88; RESP 16; TEMP 37.3; O2SAT 96
[2021-03-06] MEDS: 0.9 % Sodium Chloride Flush 3 ML SYRINGE IVFLUSH ×3 (05:09→16:54)
[2021-03-06 06:48] LABS: Glucose, Whole Blood 172 mg/dL (60-115)
[2021-03-06] MEDS: Multivitamin TABLET 1 TAB PO (08:31)
[2021-03-06] MEDS: Insulin Lispro 100 UNIT/ML 3 ML VIAL SUBCUT ×4 (08:31→22:11)
[2021-03-06] MEDS: LORazepam 2 MG/ML VIAL IVPUSH ×4 (08:34→22:10)
[2021-03-06 10:01] LABS: Alanine Aminotransferase 65 U/L (0-40); Albumin Level 4.6 g/dL (3.5-5.0); Alkaline Phosphatase 91 U/L (39-117); Anion Gap 16 (12-20); Aspartate Amino Transferase 73 U/L (5-37); Bilirubin Direct 0.4 mg/dL (0.0-0.5); Blood Urea Nitrogen 31 mg/dL (9-16); Calcium 9.4 mg/dL (8.4-10.2); Carbon Dioxide 20 mmol/L (22-29); Chloride 117 mmol/L (96-108); Creatinine Clr Calc Pharmacy 82.7; Estimated Glomerular Filt Rate > 60; Glucose Random 205 mg/dL (60-115); Potassium 3.3 mmol/L (3.3-5.1); Sodium 150 mmol/L (135-145); Total Protein 6.8 g/dL (6.5-8.0)
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
--- NOTE | 2021-03-06 10:53 | HO.PM.IMPN ---
Subjective Subjective Date of Service: 03/06/21 Interval History: Catatonic Minimal PO intake Review of Systems Review of Systems: Yes Unobtainable due to mental status Physical Exam Vital Signs: Vital Signs: Last Vital Signs Temp 99.1 F 03/05/21 22:00 Pulse 88 03/05/21 22:00 Resp 16 03/05/21 22:00 BP 152/82 H 03/05/21 22:00 Pulse Ox 96 03/05/21 22:00 Body Mass Index 27.6 Gen: catatonic HEENT: sclera anicteric, moist mucus membranes Neck: supple Lungs: clear to auscultation bilaterally Heart: tachycardic, regular, no murmurs Abd: soft, non-tender, non-distended Ext: no edema Skin: warm/well-perfused Neuro: alert, bradykinetic Psych: restricted affect Objective Data Active Medications Acetaminophen (Acetaminophen 325 Mg Tablet) 650 mg PO Q6H PRN PRN Reason: Headache/Pain Mild Scale (1-3) Al Hydroxide/Mg Hydroxide (Magnesium Hydrox/Alum Hydrox 30 Ml Oral.Susp) 30 ml PO Q6H PRN PRN Reason: Heartburn/Nausea Atorvastatin Calcium (Atorvastatin Calcium 20 Mg Tablet) 20 mg PO BEDTIME [facility] Last Admin: 03/05/21 23:23 Dose: Not Given Documented by: COLE Non-Admin Reason: Patient Refused Dextrose (Dextrose 50 % 25 Gm/50 Ml Vial) 25 gm IVPUSH Q15M PRN; Protocol PRN Reason: per Hypoglycemia Standing Ord. Enoxaparin Sodium (Enoxaparin Sodium 40 Mg/0.4 Ml Syringe) 40 mg SUBCUT Q24H [facility] Last Admin: 03/05/21 15:40 Dose: Not Given Documented by: JEANIE Non-Admin Reason: Patient Asleep Glucose (Glucose Gel 15 Gm Gel..Gram.) 15 gm PO Q15M PRN; Protocol PRN Reason: per Hypoglycemia Standing Ord. Insulin Human Lispro (Insulin Lispro 100 Unit/Ml 3 Ml Vial) 0 unit SUBCUT QIDACHS [facility]; Protocol Last Admin: 03/06/21 08:31 Dose: 2 unit Documented by: DEE DEE Lorazepam (Lorazepam 2 Mg/Ml Vial) 2 mg IVPUSH QID [facility] Last Admin: 03/06/21 08:34 Dose: 2 mg Documented by: DEE DEE Magnesium Hydroxide (Milk Of Magnesia 30 Ml Oral.Susp) 30 ml PO DAILY PRN PRN Reason: Constipation Multivitamins/Vitamin C (Multivitamin Tablet) 1 tab PO DAILY [facility] Last Admin: 03/06/21 08:31 Dose: 1 tab Documented by: DEE DEE Nicotine Polacrilex (Nicotine Polacrilex 2 Mg Gum) 4 mg BUCCAL Q2H PRN PRN Reason: Nicotine Cravings Pharmacy Consult (Consult Rx Perform Med Rec) 1 each MISCELLANE ONCE PRN PRN Reason: Consult order Sodium Chloride (0.9 % Sodium Chloride Flush 3 Ml Syringe) 3 ml IVFLUSH QSHIFT [facility] Last Admin: 03/06/21 08:32 Dose: 3 ml Documented by: DEE DEE Labs CBC & Chem 7: 03/05/21 09:32 03/06/21 09:23 Labs: Laboratory Results - last 24 hr 03/05/21 03/06/21 03/06/21 17:32 06:42 09:23 Anion Gap 16 Estim Creat Clear Calc 82.7 Estimated GFR > 60 POC Glucose 241 H 172 H Random Glucose 205 H Calcium 9.4 D Total Bilirubin 1.0 Direct Bilirubin 0.4 AST 73 H ALT 65 H Alkaline Phosphatase 91 Total Creatine Kinase 1633 H Total Protein 6.8 Albumin 4.6 Assessment and Plan (1) Rhabdomyolysis: Status: Acute (2) Type 2 diabetes mellitus: Status: Chronic Assessment and Plan: 50yo M with DM2, bipolar I, depression admitted to with catatonia. He has developed mild rhabdomyolysis and hypernatremia # rhabdomyolysis, mild - low risk of JEROME from rhabdo, CPK decreasing, d/c normal saline. recheck CPK in am # hypernatremia - free water deficit is 2L but pt also needs some volume given poor PO intake. will give LR bolus x 1L, then infuse D5 1/4NS @ 110 mL/hr x 24h; 75% of this is free water. recheck BMP in am. # DM2, A1c 6.7 - held OHGs and giving sliding-scale Humalog given poor PO intake # catatonia - if CPK continues to decrease, I think he would be at low risk for ECT # VTE ppx - LMWH Quality Stroke Does the patient have a stroke diagnosis?: No VTE Prior VTE?: No VTE Risk Level:: Medical - moderate - high VTE Device Contraindication: N/A - Device Ordered VTE Drug Contraindication: N/A - Med Ordered
[2021-03-06] MEDS: Lactated Ringers 1,000 ML 999 ML IV (11:59)
[2021-03-06 12:31] LABS: Glucose, Whole Blood 203 mg/dL (60-115)
[2021-03-06] MEDS: Dextrose 5 % and 0.2 % NaCl 1,000 ML 110 ML IVCONT ×2 (13:15→22:10)
[2021-03-06] MEDS: Enoxaparin Sodium 40 MG/0.4 ML SYRINGE SUBCUT (13:27)
[2021-03-06 16:45] VITALS: BP 134/99; PULSE 100; TEMP 36.5; O2SAT 96
[2021-03-06 17:00] LABS: Glucose, Whole Blood 217 mg/dL (60-115)
[2021-03-06 21:42] LABS: Glucose, Whole Blood 189 mg/dL (60-115)
[2021-03-06] MEDS: Atorvastatin Calcium 20 MG TABLET PO (22:10)
[2021-03-06 22:11] VITALS: BP 148/90; PULSE 85; RESP 25; TEMP 36.7; O2SAT 97
--- NOTE | 2021-03-07 | ECG_ITS ---
Test Reason : tachycardia, tachypnea Blood Pressure : / mmHG Vent. Rate : 086 BPM Atrial Rate : 086 BPM P-R Int : 134 ms QRS Dur : 080 ms QT Int : 348 ms P-R-T Axes : -21 049 052 degrees QTc Int : 416 ms Normal sinus rhythm Nonspecific ST and T wave abnormality Abnormal ECG When compared with ECG of 05-MAR-2021 11:25, No significant change was found Referred By: Fredo Prieto Electronically Signed By:NORRIS LYONS
--- NOTE | 2021-03-07 | PC.NURSE ---
Pt has been tolerating IV fluids and IV push Ativan 2mg well. No redness or infiltration at the IV site. Patients vitals will continued to monitored. Earlier on in the shift pt went down to do a CAT scan in the ED and unsuccessful to get him to lay down during the procedure according to 1:1 sitter. The patients wedding ring was very tight on his finger causing it to swell. Different methods were used to try to take off the ring. Pt was asked how long have you been and he responded Well it is about... and then stopped, maybe based on staff's elated reaction to him speaking. Pt's was notified of the plans if we could not remove the ring. Ended up having to use a ring cutter to remove- notified. Placed in patient belongings.
[2021-03-07] MEDS: 0.9 % Sodium Chloride Flush 3 ML SYRINGE IVFLUSH ×3 (03:50→16:31)
[2021-03-07 06:41] LABS: Glucose, Whole Blood 186 mg/dL (60-115)
[2021-03-07 07:30] VITALS: BP 134/84; PULSE 82; RESP 16; TEMP 36.1; O2SAT 97
[2021-03-07] MEDS: Dextrose 5 % and 0.2 % NaCl 1,000 ML 110 ML IVCONT (07:52)
[2021-03-07 08:11] LABS: Glucose, Whole Blood 175 mg/dL (60-115)
[2021-03-07] MEDS: LORazepam 2 MG/ML VIAL IVPUSH ×4 (08:48→21:50)
[2021-03-07] MEDS: Insulin Lispro 100 UNIT/ML 3 ML VIAL SUBCUT ×3 (08:49→16:44)
[2021-03-07 09:17] LABS: Anion Gap 12 (12-20); Blood Urea Nitrogen 24 mg/dL (9-16); Calcium 8.7 mg/dL (8.4-10.2); Carbon Dioxide 25 mmol/L (22-29); Chloride 113 mmol/L (96-108); Creatinine Clr Calc Pharmacy 117.4; Estimated Glomerular Filt Rate > 60; Glucose Random 200 mg/dL (60-115); Sodium 147 mmol/L (135-145)
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
--- NOTE | 2021-03-07 12:17 | HO.PM.IMPN ---
Subjective Subjective Date of Service: 03/07/21 Interval History: Took a few sips of water and a few bites of food, then fell asleep Review of Systems Review of Systems: Yes Unobtainable due to mental status Physical Exam Vital Signs: Vital Signs: Last Vital Signs Temp 98.0 F 03/06/21 22:11 Pulse 85 03/06/21 22:11 Resp 25 H 03/06/21 22:11 BP 148/90 H 03/06/21 22:11 Pulse Ox 97 03/06/21 22:11 Body Mass Index 27.6 Gen: sleeping HEENT: sclera anicteric, moist mucus membranes Neck: supple Lungs: clear to auscultation bilaterally Heart: tachycardic, regular, no murmurs Abd: soft, non-tender, non-distended Ext: no edema Skin: warm/well-perfused Neuro: sleeping Psych: unable to assess Objective Data Active Medications Acetaminophen (Acetaminophen 325 Mg Tablet) 650 mg PO Q6H PRN PRN Reason: Headache/Pain Mild Scale (1-3) Al Hydroxide/Mg Hydroxide (Magnesium Hydrox/Alum Hydrox 30 Ml Oral.Susp) 30 ml PO Q6H PRN PRN Reason: Heartburn/Nausea Atorvastatin Calcium (Atorvastatin Calcium 20 Mg Tablet) 20 mg PO BEDTIME [facility] Last Admin: 03/06/21 22:10 Dose: 20 mg Documented by: JEANIE Dextrose (Dextrose 50 % 25 Gm/50 Ml Vial) 25 gm IVPUSH Q15M PRN; Protocol PRN Reason: per Hypoglycemia Standing Ord. Enoxaparin Sodium (Enoxaparin Sodium 40 Mg/0.4 Ml Syringe) 40 mg SUBCUT Q24H [facility] Last Admin: 03/06/21 13:27 Dose: 40 mg Documented by: DEE DEE Glucose (Glucose Gel 15 Gm Gel..Gram.) 15 gm PO Q15M PRN; Protocol PRN Reason: per Hypoglycemia Standing Ord. Dextrose/Sodium Chloride (D51/4ns) 1,000 mls @ 100 mls/hr IVCONT .Q10H [facility] Stop: 03/08/21 06:59 Insulin Human Lispro (Insulin Lispro 100 Unit/Ml 3 Ml Vial) 0 unit SUBCUT QIDACHS [facility]; Protocol Last Admin: 03/07/21 08:49 Dose: 4 unit Documented by: HALIMA Lorazepam (Lorazepam 2 Mg/Ml Vial) 2 mg IVPUSH QID [facility] Last Admin: 03/07/21 08:48 Dose: 2 mg Documented by: HALIMA Magnesium Hydroxide (Milk Of Magnesia 30 Ml Oral.Susp) 30 ml PO DAILY PRN PRN Reason: Constipation Multivitamins/Vitamin C (Multivitamin Tablet) 1 tab PO DAILY [facility] Last Admin: 03/06/21 08:31 Dose: 1 tab Documented by: DEE DEE Nicotine Polacrilex (Nicotine Polacrilex 2 Mg Gum) 4 mg BUCCAL Q2H PRN PRN Reason: Nicotine Cravings Pharmacy Consult (Consult Rx Perform Med Rec) 1 each MISCELLANE ONCE PRN PRN Reason: Consult order Sodium Chloride (0.9 % Sodium Chloride Flush 3 Ml Syringe) 3 ml IVFLUSH QSHIFT [facility] Last Admin: 03/07/21 07:55 Dose: 3 ml Documented by: HALIMA Labs CBC & Chem 7: 03/05/21 09:32 03/07/21 08:23 Labs: Laboratory Results - last 24 hr 03/06/21 03/06/21 03/06/21 12:26 16:56 21:37 Anion Gap Estim Creat Clear Calc Estimated GFR POC Glucose 203 H 217 H 189 H Random Glucose Calcium Total Creatine Kinase 03/07/21 03/07/21 03/07/21 06:36 08:03 08:23 Anion Gap 12 Estim Creat Clear Calc 117.4 Estimated GFR > 60 POC Glucose 186 H 175 H Random Glucose 200 H Calcium 8.7 D Total Creatine Kinase 972 H D Microbiology Microbiology Results: Microbiology 03/05/21 09:32 Blood Culture - Preliminary Blood - Venous No growth after 48 hours. 03/05/21 09:32 Blood Culture - Preliminary Blood - Venous No growth after 48 hours. Assessment and Plan (1) Rhabdomyolysis: Status: Acute (2) Type 2 diabetes mellitus: Status: Chronic Assessment and Plan: 50yo M with DM2, bipolar I, depression admitted to [facility] with catatonia, developed mild rhabdomyolysis and hypernatremia # rhabdomyolysis, mild - low risk of JEROME from rhabdo, CPK decreasing, d/c'ed isotonic fluid # hypernatremia - continue D5 1/4NS and recheck BMP in am # DM2, A1c 6.7 - held OHGs and giving sliding-scale Humalog given poor PO intake # catatonia - if CPK continues to decrease, I think he would be at low risk for ECT # VTE ppx - LMWH Quality Stroke Does the patient have a stroke diagnosis?: No VTE Prior VTE?: No VTE Risk Level:: Medical - moderate - high VTE Device Contraindication: N/A - Device Ordered VTE Drug Contraindication: N/A - Med Ordered
[2021-03-07] MEDS: Dextrose 5 % and 0.2 % NaCl 1,000 ML 100 ML IVCONT ×2 (12:48→17:58)
[2021-03-07] MEDS: Enoxaparin Sodium 40 MG/0.4 ML SYRINGE SUBCUT (13:09)
[2021-03-07 13:17] LABS: Glucose, Whole Blood 165 mg/dL (60-115)
[2021-03-07 13:30] VITALS: BP 158/100; PULSE 83; RESP 16; TEMP 36.1; O2SAT 97
[2021-03-07 16:40] LABS: Glucose, Whole Blood 190 mg/dL (60-115)
[2021-03-07] MEDS: Potassium Chloride/H20 10 MEQ/100 ML PIGGYBACK 100 MEQ IV ×3 (17:57→22:15)
--- NOTE | 2021-03-07 20:40 | PM.EVENT ---
Event Note Date of Service: 03/07/21 Event Note: Briefly: Patient being managed for catatonia in the psychiatric unit. RN mentioned that patient appears mildly anxious and breathing faster; I went and examined the patient, exam fairly benign; patient has been not talking, moves all extremities equally, alert and awake, appears mildly anxious. on bladder scan noted to have almost 800 cc of urine which explains the patient discomfort. Will send stat labs and urinalysis as well as chest x-ray. EKG nonischemic. Patient being straight cathed the 0
[2021-03-07 21:26] LABS: MANUAL DIFF FLAG NO
[2021-03-07 21:31] LABS: Basophils Percent Auto 0.2 % (0-2); Eosinophils Absolute Auto 0.1 X10*3/uL (0.0-0.4); Eosinophils Percent Auto 0.7 % (0-4); Hematocrit 36.1 % (42-52); Hemoglobin 12.1 g/dl (14.0-18.0); Imm Gran Abs Auto 0.05 X10*3/uL (0.00-0.03); Imm Gran Pct Auto 0.6 % (0.0-0.4); Lymphocytes Absolute Auto 2.1 X10*3/uL (1.2-4.9); Lymphocytes Percent Auto 25.1 % (20-40); Mean Corpuscular HGB Conc 33.5 g/dl (31.0-36.0); Mean Corpuscular Hemoglobin 27.7 pg (27.0-33.0); Mean Corpuscular Volume 82.6 fL (80-98); Mean Platelet Volume 11.2 fL (9.4-12.4); Monocytes Absolute Auto 0.6 X10*3/uL (0.1-1.2); Monocytes Percent Auto 7.5 % (2-11); Neutrophils Absolute Auto 5.4 X10*3/uL (2.0-8.3); Neutrophils Percent Auto 65.9 % (45-73); Platelet Count 189 X10*3/uL (160-400); Red Blood Count 4.37 X10*6/uL (4.60-5.80); Red Cell Distribution Width 13.3 % (11.0-16.0); White Blood Count 8.2 X10*3/uL (4.8-10.8)
[2021-03-07 21:34] LABS: Appearance Urine CLEAR; Color Urine YELLOW; Glucose Urine UA >=1000 MG/DL (NEG); Leukocyte Esterase Urine NEG (NEG); Nitrite Urine NEG (NEG); Specific Gravity - Urine >= 1.030 (1.005-1.025); Urine Blood NEG (NEG); Urine Ketones NEG (NEG); Urine Protein TRACE MG/DL (NEG-TRACE)
[2021-03-07 21:39] LABS: Lactic Acid 0.8 mmol/L (0.5-2.0)
[2021-03-07 21:40] LABS: D Dimer 337 NG/ML
[2021-03-07 21:43] LABS: Bacteria Urine 1+ /LPF; Granular Casts Urine 0-2 /LPF; Hyaline Casts Urine 0-2 /LPF; Mucus Urine 2+ /LPF; Squamous Epithelial Cell Urine 1+ /LPF
[2021-03-07 21:46] LABS: Alanine Aminotransferase 56 U/L (0-40); Albumin Level 3.8 g/dL (3.5-5.0); Alkaline Phosphatase 79 U/L (39-117); Aspartate Amino Transferase 50 U/L (5-37); Bilirubin Total 0.6 mg/dL (0.0-1.0); Blood Urea Nitrogen 21 mg/dL (9-16); Calcium 8.7 mg/dL (8.4-10.2); Creatinine Clr Calc Pharmacy 118.8; Estimated Glomerular Filt Rate > 60; Glucose Random 124 mg/dL (60-115); Total Protein 5.5 g/dL (6.5-8.0)
[2021-03-07 21:48] LABS: Glucose, Whole Blood 127 mg/dL (60-115)
[2021-03-07 21:49] LABS: B Type Natriuretic Peptide 86 pg/mL (<100)
[2021-03-07 22:05] LABS: Anion Gap 13 (12-20); Carbon Dioxide 25 mmol/L (22-29); Chloride 111 mmol/L (96-108); Potassium 2.9 mmol/L (3.3-5.1); Sodium 146 mmol/L (135-145)
[2021-03-08] MEDS: Potassium Chloride/H20 10 MEQ/100 ML PIGGYBACK 100 MEQ IV ×5 (01:07→15:35)
[2021-03-08 04:04] LABS: HBS Num1 26.53 mIU/mL (0-7.99); HBc Num1 0.08 S/CO (0.00-0.79); HBsAGNum1 0.32 S/CO (0.00-0.99); Hepatitis B Core Antibody Nonreactive (Nonreactive); Hepatitis B Surface Antigen Negative (Negative); ~HepC Num1 0.07 S/CO (0.00-0.79); ~Hepatitis B Surface Antibody REACTIVE (Nonreactive); ~Hepatitis C Antibody Nonreactive (Nonreactive)
[2021-03-08 04:33] LABS: Folate 19.3 ng/mL (> or = 4.0); Vitamin B12 1285 pg/mL (200-900)
[2021-03-08] MEDS: 0.9 % Sodium Chloride Flush 3 ML SYRINGE IVFLUSH ×3 (06:10→17:14)
[2021-03-08 06:37] LABS: Glucose, Whole Blood 144 mg/dL (60-115)
[2021-03-08 09:07] LABS: Anion Gap 12 (12-20); Blood Urea Nitrogen 17 mg/dL (9-16); C Reactive Protein 1.08 mg/dL (< or = 0.50); Calcium 8.9 mg/dL (8.4-10.2); Carbon Dioxide 26 mmol/L (22-29); Chloride 108 mmol/L (96-108); Creatinine Clr Calc Pharmacy 123.1; Estimated Glomerular Filt Rate > 60; Glucose Random 173 mg/dL (60-115); Potassium 2.9 mmol/L (3.3-5.1); Sodium 143 mmol/L (135-145)
[2021-03-08] MEDS: LORazepam 2 MG/ML VIAL IVPUSH ×4 (09:19→21:01)
[2021-03-08] MEDS: Multivitamin TABLET 1 TAB PO (09:19)
[2021-03-08 09:23] LABS: Procalcitonin 0.08 ng/mL
[2021-03-08 09:45] VITALS: BP 142/81; PULSE 99; RESP 14; TEMP 35.7; O2SAT 96
--- NOTE | 2021-03-08 11:57 | P.PNIM_ITS ---
Subjective Subjective Date of Service: 03/08/21 Interval History: Catatonic Overnight, soda fountain operator saw pt for tachypnea. Labs and CXR and EKG orderd. Was retaining urine. Review of Systems Review of Systems: Yes Unobtainable due to mental status Physical Exam Vital Signs: Vital Signs: Last Vital Signs Temp 96.2 F L 03/08/21 09:45 Pulse 99 03/08/21 09:45 Resp 14 03/08/21 09:45 BP 142/81 H 03/08/21 09:45 Pulse Ox 96 03/08/21 09:45 Body Mass Index 27.6 Gen: catatonic HEENT: sclera anicteric, moist mucus membranes Neck: supple Lungs: clear to auscultation bilaterally Heart: tachycardic, regular, no murmurs Abd: soft, non-tender, non-distended Ext: no edema Skin: warm/well-perfused Neuro: unable to assess Psych: catatonic Objective Data Active Medications Acetaminophen (Acetaminophen 325 Mg Tablet) 650 mg PO Q6H PRN PRN Reason: Headache/Pain Mild Scale (1-3) Al Hydroxide/Mg Hydroxide (Magnesium Hydrox/Alum Hydrox 30 Ml Oral.Susp) 30 ml PO Q6H PRN PRN Reason: Heartburn/Nausea Atorvastatin Calcium (Atorvastatin Calcium 20 Mg Tablet) 20 mg PO BEDTIME [facility] Last Admin: 03/07/21 20:58 Dose: Not Given Documented by: HUMAIRA Non-Admin Reason: Patient Refused Dextrose (Dextrose 50 % 25 Gm/50 Ml Vial) 25 gm IVPUSH Q15M PRN; Protocol PRN Reason: per Hypoglycemia Standing Ord. Enoxaparin Sodium (Enoxaparin Sodium 40 Mg/0.4 Ml Syringe) 40 mg SUBCUT Q24H [facility] Last Admin: 03/07/21 13:09 Dose: 40 mg Documented by: HALIMA Glucose (Glucose Gel 15 Gm Gel..Gram.) 15 gm PO Q15M PRN; Protocol PRN Reason: per Hypoglycemia Standing Ord. Potassium Chloride () 10 meq in 100 mls @ 100 mls/hr IV Q1H [facility] Stop: 03/08/21 11:59 Last Admin: 03/08/21 11:07 Dose: 100 mls/hr Documented by: DEE DEE Insulin Human Lispro (Insulin Lispro 100 Unit/Ml 3 Ml Vial) 0 unit SUBCUT QIDACHS [facility]; Protocol Last Admin: 03/08/21 08:12 Dose: Not Given Documented by: DEE DEE Non-Admin Reason: No Insulin Coverage Labetalol HCl (Labetalol Hcl 100 Mg/20 Ml Vial) 10 mg IVPUSH Q4H PRN PRN Reason: bp>180/90 Lorazepam (Lorazepam 2 Mg/Ml Vial) 2 mg IVPUSH QID [facility] Last Admin: 03/08/21 09:19 Dose: 2 mg Documented by: DEE DEE Magnesium Hydroxide (Milk Of Magnesia 30 Ml Oral.Susp) 30 ml PO DAILY PRN PRN Reason: Constipation Multivitamins/Vitamin C (Multivitamin Tablet) 1 tab PO DAILY [facility] Last Admin: 03/08/21 09:19 Dose: 1 tab Documented by: DEE DEE Nicotine Polacrilex (Nicotine Polacrilex 2 Mg Gum) 4 mg BUCCAL Q2H PRN PRN Reason: Nicotine Cravings Pharmacy Consult (Consult Rx Perform Med Rec) 1 each MISCELLANE ONCE PRN PRN Reason: Consult order Sodium Chloride (0.9 % Sodium Chloride Flush 3 Ml Syringe) 3 ml IVFLUSH QSHIFT [facility] Last Admin: 03/08/21 09:19 Dose: 3 ml Documented by: DEE DEE Labs CBC & Chem 7: 03/07/21 21:23 03/08/21 08:19 Labs: Laboratory Results - last 24 hr 03/06/2121 03/07/21 09:22 09:23 13:13 MCV MCH MCHC RDW Plt Count MPV Immature Gran % (Auto) Neut % (Auto) Lymph % (Auto) [place] % (Auto) Eos % (Auto) Baso % (Auto) Lymph # (Auto) [place] # (Auto) Eos # (Auto) Baso # (Auto) Abs Immat Gran (auto) Absolute Neuts (auto) Absolute Nucleated RBC Nucleated RBC % (auto) D-Dimer Anion Gap Estim Creat Clear Calc Estimated GFR POC Glucose 165 H Random Glucose Lactic Acid Calcium Magnesium Total Bilirubin AST ALT Alkaline Phosphatase Total Creatine Kinase C-Reactive Protein B-Natriuretic Peptide NT-Pro-B Natriuret Pep Total Protein Albumin Vitamin B12 1285 H Folate 19.3 Procalcitonin Urine Color Urine Appearance Urine pH Ur Specific [place] Urine Protein Urine Glucose (UA) Urine Ketones Urine Blood Urine Nitrite Ur Leukocyte Esterase Urine RBC Urine WBC Ur Squamous Epith Cells Urine Bacteria Hyaline Casts Granular Casts Urine Mucus Hep Bs Antigen Negative Hep Bs Antibody REACTIVE Hep B Core Total Ab Nonreactive Hepatitis C Ab (EIA) Nonreactive 03/07/21 03/07/21 03/07/21 16:35 21:22 21:22 MCV MCH MCHC RDW Plt Count MPV Immature Gran % (Auto) Neut % (Auto) Lymph % (Auto) [place] % (Auto) Eos % (Auto) Baso % (Auto) Lymph # (Auto) [place] # (Auto) Eos # (Auto) Baso # (Auto) Abs Immat Gran (auto) Absolute Neuts (auto) Absolute Nucleated RBC Nucleated RBC % (auto) D-Dimer Anion Gap Estim Creat Clear Calc Estimated GFR POC Glucose 190 H Random Glucose Lactic Acid 0.8 Calcium Magnesium Total Bilirubin AST ALT Alkaline Phosphatase Total Creatine Kinase C-Reactive Protein B-Natriuretic Peptide NT-Pro-B Natriuret Pep Total Protein Albumin Vitamin B12 Folate Procalcitonin Urine Color YELLOW Urine Appearance CLEAR Urine pH 6.0 Ur Specific [place] >= 1.030 H Urine Protein TRACE Urine Glucose (UA) >=1000 H Urine Ketones NEG Urine Blood NEG Urine Nitrite NEG Ur Leukocyte Esterase NEG Urine RBC 1-4 Urine WBC 1-4 Ur Squamous Epith Cells 1+ Urine Bacteria 1+ Hyaline Casts 0-2 Granular Casts 0-2 Urine Mucus 2+ Hep Bs Antigen Hep Bs Antibody Hep B Core Total Ab Hepatitis C Ab (EIA) 03/07/21 03/07/21 03/07/21 21:23 21:23 21:23 MCV 82.6 MCH 27.7 MCHC 33.5 RDW 13.3 Plt Count 189 MPV 11.2 Immature Gran % (Auto) 0.6 H Neut % (Auto) 65.9 Lymph % (Auto) 25.1 [place] % (Auto) 7.5 Eos % (Auto) 0.7 Baso % (Auto) 0.2 Lymph # (Auto) 2.1 [place] # (Auto) 0.6 Eos # (Auto) 0.1 Baso # (Auto) 0.0 Abs Immat Gran (auto) 0.05 H Absolute Neuts (auto) 5.4 Absolute Nucleated RBC 0.000 Nucleated RBC % (auto) 0.0 D-Dimer 337 Anion Gap 13 Estim Creat Clear Calc 118.8 Estimated GFR > 60 POC Glucose Random Glucose 124 H D Lactic Acid Calcium 8.7 Magnesium Total Bilirubin 0.6 AST 50 H ALT 56 H Alkaline Phosphatase 79 Total Creatine Kinase C-Reactive Protein B-Natriuretic Peptide NT-Pro-B Natriuret Pep Total Protein 5.5 L Albumin 3.8 Vitamin B12 Folate Procalcitonin Urine Color Urine Appearance Urine pH Ur Specific [place] Urine Protein Urine Glucose (UA) Urine Ketones Urine Blood Urine Nitrite Ur Leukocyte Esterase Urine RBC Urine WBC Ur Squamous Epith Cells Urine Bacteria Hyaline Casts Granular Casts Urine Mucus Hep Bs Antigen Hep Bs Antibody Hep B Core Total Ab Hepatitis C Ab (EIA) 03/07/21 03/07/21 03/07/21 21:23 21:23 21:43 MCV MCH MCHC RDW Plt Count MPV Immature Gran % (Auto) Neut % (Auto) Lymph % (Auto) [place] % (Auto) Eos % (Auto) Baso % (Auto) Lymph # (Auto) [place] # (Auto) Eos # (Auto) Baso # (Auto) Abs Immat Gran (auto) Absolute Neuts (auto) Absolute Nucleated RBC Nucleated RBC % (auto) D-Dimer Anion Gap Estim Creat Clear Calc Estimated GFR POC Glucose 127 H Random Glucose Lactic Acid Calcium Magnesium Total Bilirubin AST ALT Alkaline Phosphatase Total Creatine Kinase C-Reactive Protein B-Natriuretic Peptide 86 NT-Pro-B Natriuret Pep Cancelled Total Protein Albumin Vitamin B12 Folate Procalcitonin Urine Color Urine Appearance Urine pH Ur Specific [place] Urine Protein Urine Glucose (UA) Urine Ketones Urine Blood Urine Nitrite Ur Leukocyte Esterase Urine RBC Urine WBC Ur Squamous Epith Cells Urine Bacteria Hyaline Casts Granular Casts Urine Mucus Hep Bs Antigen Hep Bs Antibody Hep B Core Total Ab Hepatitis C Ab (EIA) 03/08/21 03/08/21 03/08/21 06:32 08:19 08:19 MCV MCH MCHC RDW Plt Count MPV Immature Gran % (Auto) Neut % (Auto) Lymph % (Auto) [place] % (Auto) Eos % (Auto) Baso % (Auto) Lymph # (Auto) [place] # (Auto) Eos # (Auto) Baso # (Auto) Abs Immat Gran (auto) Absolute Neuts (auto) Absolute Nucleated RBC Nucleated RBC % (auto) D-Dimer Anion Gap 12 Estim Creat Clear Calc 123.1 Estimated GFR > 60 POC Glucose 144 H Random Glucose 173 H D Lactic Acid Calcium 8.9 Magnesium 2.0 Total Bilirubin AST ALT Alkaline Phosphatase Total Creatine Kinase 584 H D C-Reactive Protein 1.08 H B-Natriuretic Peptide NT-Pro-B Natriuret Pep Total Protein Albumin Vitamin B12 Folate Procalcitonin 0.08 Urine Color Urine Appearance Urine pH Ur Specific [place] Urine Protein Urine Glucose (UA) Urine Ketones Urine Blood Urine Nitrite Ur Leukocyte Esterase Urine RBC Urine WBC Ur Squamous Epith Cells Urine Bacteria Hyaline Casts Granular Casts Urine Mucus Hep Bs Antigen Hep Bs Antibody Hep B Core Total Ab Hepatitis C Ab (EIA) Microbiology Microbiology Results: Microbiology 03/05/21 09:32 Blood Culture - Preliminary Blood - Venous No growth after 48 hours. 03/05/21 09:32 Blood Culture - Preliminary Blood - Venous No growth after 48 hours. Assessment and Plan (1) Rhabdomyolysis: Status: Acute (2) Type 2 diabetes mellitus: Status: Chronic Assessment and Plan: 50yo M with DM2, bipolar I, depression admitted to with catatonia, developed mild rhabdomyolysis and hypernatremia # hypoK - replete IV+PO, recheck in am # urinary retention - straight cath'ed yesterday for 800 mL # question of pneumonia # D-dimer elevated - will obtain CTA to r/o PE but I think it unlikely; CXR ?retrocardiac infiltrate- will assess on CTA. afebrile, WBC normal, PCT low # hyperNa - resolved, encourage free water intake # rhabdomyolysis, mild - CPK well below 1000, d/c'ed isotonic fluid # DM2, A1c 6.7 - held OHGs and giving sliding-scale Humalog given poor PO intake # catatonia - on lorazepam per psych. low risk for ECT if that is being contemplated # VTE ppx - LMWH Quality Stroke Does the patient have a stroke diagnosis?: No VTE Prior VTE?: No VTE Risk Level:: Medical - moderate - high VTE Device Contraindication: N/A - Device Ordered VTE Drug Contraindication: N/A - Med Ordered
[2021-03-08] MEDS: Enoxaparin Sodium 40 MG/0.4 ML SYRINGE SUBCUT (12:45)
[2021-03-08 12:57] LABS: Glucose, Whole Blood 174 mg/dL (60-115)
[2021-03-08] MEDS: Potassium Chloride ER 20 MEQ TAB.ER.PRT 40 MEQ PO (13:34)
[2021-03-08] MEDS: Insulin Lispro 100 UNIT/ML 3 ML VIAL SUBCUT ×3 (13:37→21:13)
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
[2021-03-08] MEDS: iohexoL 350 MG/ML 100 ML INFUS..BTL IV (18:58)
[2021-03-08] MEDS: Atorvastatin Calcium 20 MG TABLET PO (21:01)
[2021-03-08 21:44] LABS: Glucose, Whole Blood 197 mg/dL (60-115)
[2021-03-08 21:44] LABS: Glucose, Whole Blood 152 mg/dL (60-115)
--- NOTE | 2021-03-08 22:26 | PC.NURSE ---
Dr. Sauceda was notified to be sure of D/C of IV fluids. Reported that there will be labs to be drawn in the morning for him. Pt tolerated IV fluids: KCl and D5/0.2 NaCl well. As well as, IV Push Ativan 2 mg. No redness or swelling at the IV site. At times he became very restless, pacing the room and having unsteady gait. Talking is very minimal and non-sensical. Patient had 3 bouts of diarrhea earlier on in the shift. Drank approximately 26 oz of water and juice this evening. Did not urinate most of the shift. Routine bladder scan was 771. Staff encouraged him to urinate on his own. He was unable and straight cathed for 700 cc. Pt still very confused. Vitals were WNL. Pt visibly more relaxed and able to lay down. Went down for CT angio and tolerated the procedure well.
[2021-03-09] MEDS: LORazepam 2 MG/ML VIAL 1 MG IVPUSH (02:39)
[2021-03-09 06:32] LABS: Glucose, Whole Blood 154 mg/dL (60-115)
[2021-03-09 08:32] LABS: Hemoglobin 12.3 g/dl (14.0-18.0); Mean Corpuscular HGB Conc 34.2 g/dl (31.0-36.0); Mean Platelet Volume 11.5 fL (9.4-12.4); Platelet Count 205 X10*3/uL (160-400); Red Blood Count 4.39 X10*6/uL (4.60-5.80); Red Cell Distribution Width 13.3 % (11.0-16.0); White Blood Count 7.8 X10*3/uL (4.8-10.8)
[2021-03-09 08:42] VITALS: BP 166/75; PULSE 102; TEMP 36.4; O2SAT 95
[2021-03-09 08:43] LABS: Anion Gap 11 (12-20); Blood Urea Nitrogen 17 mg/dL (9-16); Calcium 9.2 mg/dL (8.4-10.2); Carbon Dioxide 26 mmol/L (22-29); Chloride 110 mmol/L (96-108); Creatinine Clr Calc Pharmacy 118.8; Estimated Glomerular Filt Rate > 60; Glucose Random 152 mg/dL (60-115); Potassium 3.2 mmol/L (3.3-5.1); Sodium 144 mmol/L (135-145)
[2021-03-09 09:02] LABS: Procalcitonin 0.08 ng/mL
--- NOTE | 2021-03-09 09:04 | P.PNNP_ITS ---
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 Farm Worker pending Physical Exam Vital Signs: Vital Signs: Last Vital Signs Temp 97.5 F 03/09/21 08:42 Pulse 102 H 03/09/21 08:42 Resp 14 03/08/21 09:45 BP 166/75 H 03/09/21 08:42 Pulse Ox 95 03/09/21 08:42 Body Mass Index 27.6 Objective Data Labs CBC & Chem 7: 03/09/21 08:18 03/09/21 08:18 Labs: Laboratory Results - last 24 hr 03/08/21 03/08/21 03/08/21 08:19 08:19 12:50 WBC RBC Hgb Hct MCV MCH MCHC RDW Plt Count MPV Absolute Nucleated RBC Nucleated RBC % (auto) Sodium 143 Potassium 2.9 L Chloride 108 Carbon Dioxide 26 Anion Gap 12 BUN 17 H Creatinine 0.82 Estim Creat Clear Calc 123.1 Estimated GFR > 60 POC Glucose 174 H Random Glucose 173 H D Calcium 8.9 Magnesium 2.0 Total Creatine Kinase 584 H D C-Reactive Protein 1.08 H Procalcitonin 0.08 03/08/21 03/08/21 03/09/21 17:26 21:02 06:28 WBC RBC Hgb Hct MCV MCH MCHC RDW Plt Count MPV Absolute Nucleated RBC Nucleated RBC % (auto) Sodium Potassium Chloride Carbon Dioxide Anion Gap BUN Creatinine Estim Creat Clear Calc Estimated GFR POC Glucose 152 H 197 H 154 H Random Glucose Calcium Magnesium Total Creatine Kinase C-Reactive Protein Procalcitonin 03/09/21 03/09/21 03/09/21 08:18 08:18 08:18 WBC 7.8 RBC 4.39 L Hgb 12.3 L Hct 36.0 L MCV 82.0 MCH 28.0 MCHC 34.2 RDW 13.3 Plt Count 205 MPV 11.5 Absolute Nucleated RBC 0.000 Nucleated RBC % (auto) 0.0 Sodium 144 Potassium 3.2 L Chloride 110 H Carbon Dioxide 26 Anion Gap 11 L BUN 17 H Creatinine 0.85 Estim Creat Clear Calc 118.8 Estimated GFR > 60 POC Glucose Random Glucose 152 H Calcium 9.2 Magnesium Total Creatine Kinase 299 H D C-Reactive Protein Procalcitonin 0.08 Microbiology Microbiology Results: Microbiology 03/05/21 09:32 Blood - Venous Blood Culture - Preliminary No growth after 48 hours. 03/05/21 09:32 Blood - Venous Blood Culture - Preliminary No growth after 48 hours. Procedures Date of Service Date of Service: 03/09/21 Assessment & Plan Assessment and plan (1) Hypokalemia, inadequate intake: Status: Acute (2) Hypernatremia: Status: Acute Assessment and Plan: Hypernatremia stands corrected with IVF Keep I > O with po fluids Mild hypokalemia Add KCL 40 meq PO x 1 dose JEROME resolved Time Spent With Patient Time with patient: less than 15 minutes Progress Note: Quality Stroke Does the patient have a stroke diagnosis?: No
[2021-03-09] MEDS: Insulin Lispro 100 UNIT/ML 3 ML VIAL SUBCUT ×3 (09:21→22:01)
[2021-03-09] MEDS: LORazepam 1 MG TABLET 2 MG PO (09:26)
[2021-03-09] MEDS: Multivitamin TABLET 1 TAB PO (09:26)
[2021-03-09] MEDS: Nicotine Polacrilex 2 MG GUM 4 MG BUCCAL (09:46)
--- NOTE | 2021-03-09 10:19 | P.PNIM_ITS ---
Subjective Subjective Date of Service: 03/09/21 Interval History: rhabdo,hypokalemia Review of Systems Patient is mostly does not answer many questions. Does not seem to be coughing while seen the patient No fever Physical Exam Vital Signs: Vital Signs: Last Vital Signs Temp 97.5 F 03/09/21 08:42 Pulse 102 H 03/09/21 08:42 Resp 14 03/08/21 09:45 BP 166/75 H 03/09/21 08:42 Pulse Ox 95 03/09/21 08:42 Body Mass Index 27.6 Gen: catatonic HEENT: sclera anicteric, moist mucus membranes Neck: supple Lungs: clear to auscultation bilaterally Heart: tachycardic, regular, no murmurs Abd: soft, non-tender, non-distended Ext: no edema Skin: warm/well-perfused Neuro: unable to assess Psych: catatonic Objective Data Active Medications Acetaminophen (Acetaminophen 325 Mg Tablet) 650 mg PO Q6H PRN PRN Reason: Headache/Pain Mild Scale (1-3) Al Hydroxide/Mg Hydroxide (Magnesium Hydrox/Alum Hydrox 30 Ml Oral.Susp) 30 ml PO Q6H PRN PRN Reason: Heartburn/Nausea Atorvastatin Calcium (Atorvastatin Calcium 20 Mg Tablet) 20 mg PO BEDTIME [facility] Last Admin: 03/08/21 21:01 Dose: 20 mg Documented by: JEANIE Dextrose (Dextrose 50 % 25 Gm/50 Ml Vial) 25 gm IVPUSH Q15M PRN; Protocol PRN Reason: per Hypoglycemia Standing Ord. Enoxaparin Sodium (Enoxaparin Sodium 40 Mg/0.4 Ml Syringe) 40 mg SUBCUT Q24H [facility] Last Admin: 03/08/21 12:45 Dose: 40 mg Documented by: DEE DEE Glucose (Glucose Gel 15 Gm Gel..Gram.) 15 gm PO Q15M PRN; Protocol PRN Reason: per Hypoglycemia Standing Ord. Insulin Human Lispro (Insulin Lispro 100 Unit/Ml 3 Ml Vial) 0 unit SUBCUT QIDACHS [facility]; Protocol Last Admin: 03/09/21 09:21 Dose: 2 unit Documented by: ASAD Labetalol HCl (Labetalol Hcl 100 Mg/20 Ml Vial) 10 mg IVPUSH Q4H PRN PRN Reason: bp>180/90 Lorazepam (Lorazepam 2 Mg/Ml Vial) 2 mg IVPUSH QID [facility] Last Admin: 03/09/21 09:27 Dose: Not Given Documented by: ASAD Non-Admin Reason: No Access Magnesium Hydroxide (Milk Of Magnesia 30 Ml Oral.Susp) 30 ml PO DAILY PRN PRN Reason: Constipation Multivitamins/Vitamin C (Multivitamin Tablet) 1 tab PO DAILY [facility] Last Admin: 03/09/21 09:26 Dose: 1 tab Documented by: ASAD Nicotine Polacrilex (Nicotine Polacrilex 2 Mg Gum) 4 mg BUCCAL Q2H PRN PRN Reason: Nicotine Cravings Last Admin: 03/09/21 09:46 Dose: 4 mg Documented by: ASAD Pharmacy Consult (Consult Rx Perform Med Rec) 1 each MISCELLANE ONCE PRN PRN Reason: Consult order Sodium Chloride (0.9 % Sodium Chloride Flush 3 Ml Syringe) 3 ml IVFLUSH QSHIFT [facility] Last Admin: 03/09/21 09:22 Dose: Not Given Documented by: ASAD Non-Admin Reason: No Access Labs CBC & Chem 7: 03/09/21 08:18 03/09/21 08:18 Labs: Laboratory Results - last 24 hr 03/08/21 03/08/21 03/08/21 12:50 17:26 21:02 MCV MCH MCHC RDW Plt Count MPV Absolute Nucleated RBC Nucleated RBC % (auto) Anion Gap Estim Creat Clear Calc Estimated GFR POC Glucose 174 H 152 H 197 H Random Glucose Calcium Total Creatine Kinase Procalcitonin 03/09/21 03/09/21 03/09/21 06:28 08:18 08:18 MCV 82.0 MCH 28.0 MCHC 34.2 RDW 13.3 Plt Count 205 MPV 11.5 Absolute Nucleated RBC 0.000 Nucleated RBC % (auto) 0.0 Anion Gap 11 L Estim Creat Clear Calc 118.8 Estimated GFR > 60 POC Glucose 154 H Random Glucose 152 H Calcium 9.2 Total Creatine Kinase 299 H D Procalcitonin 03/09/21 08:18 MCV MCH MCHC RDW Plt Count MPV Absolute Nucleated RBC Nucleated RBC % (auto) Anion Gap Estim Creat Clear Calc Estimated GFR POC Glucose Random Glucose Calcium Total Creatine Kinase Procalcitonin 0.08 Assessment and Plan (1) Hypokalemia, inadequate intake: Status: Acute Assessment and Plan: 50yo M with DM2, bipolar I, depression admitted to [facility] with catatonia, developed mild rhabdomyolysis and hypernatremia 1.hypoK Received IV+PO yesterday,, potassium today is 3.2, morning team already ordered p.o. potassium. Nephrology following Please check BMP in the morning 2. urinary retention As per staff no new retention, monitor PVRs 3. question of pneumonia # D-dimer elevated - will obtain CTA to r/o PE negative, has might atelectasis otherwise unremarkable.? afebrile, WBC normal, PCT low Chest physio, incentive [place] if possible, walk patient 4. hyperNa - resolved, encourage free water intake 5.rhabdomyolysis, mild CPK well below 1000, d/c'ed isotonic fluid 6. DM2, A1c 6.7 - held OHGs and giving sliding-scale Humalog given poor PO intake 7. catatonia - on lorazepam per psych.? low risk for ECT if that is being contemplated # VTE ppx - LMWH Above was discussed with the patient staff in detail length, will sign off now please call us for any questions. All Quality Stroke Does the patient have a stroke diagnosis?: No VTE Prior VTE?: No VTE Risk Level:: Medical - moderate - high VTE Device Contraindication: N/A - Device Ordered VTE Drug Contraindication: N/A - Med Ordered
[2021-03-09] MEDS: Potassium Chloride Packet 20 MEQ PACKET 40 MEQ PO (10:29)
--- NOTE | 2021-03-09 11:20 | CONS_ITS ---
DATE OF SERVICE: 03/08/2021 REASON FOR CONSULTATION: I was called to see this patient to assist in the management of hypokalemia and mild hypernatremia. HISTORY OF PRESENT ILLNESS: To summarize, All is a 50-year-old man with a history of bipolar disorder. He is admitted to the psychiatric floor with catatonia. He was found to have hypernatremia, which is being corrected with hypotonic fluids. He has also developed hypokalemia and hence this consultation. PAST MEDICAL HISTORY: Ongoing medical problems include history of bipolar disorder . FAMILY HISTORY: Not significant for admission. SOCIAL HISTORY: Lives with his . No history of any alcohol abuse or drug abuse reported on history and physical. REVIEW OF SYSTEMS: Not obtainable from the patient due to his mentation. All the information obtained from the chart. PHYSICAL EXAMINATION: GENERAL: On examination, All is awake, not verbalizing, not in any distress. NECK: Supple. No JVD. LUNGS: Air entry equal. No rales. HEART: S1 and S2 heard. No gallop. ABDOMEN: Soft, nontender. EXTREMITIES: No edema. No rash. No clubbing. VITAL SIGNS: Blood pressure 142/81, pulse 99, temperature 96.2. LABORATORY DATA: Sodium 143, potassium 2.9, BUN 17, creatinine 0.82. On admission, serum creatinine was 1.16. IMPRESSION: A 50-year-old man with acute kidney injury with hypernatremia and hypokalemia. The hypernatremia and the acute kidney injury were due to volume depletion. After replacing free fluids, the serum sodium was returned to baseline and renal function has improved. He does have mild hypokalemia probably due to urinary potassium losses. RECOMMENDATIONS: To continue with IV hydration with hypotonic fluids. I agree with the current IV fluids and potassium supplementation. The serum electrolytes can be monitored once a day and potassium replaced as needed. We will continue to follow him along with the team. Jose Means MD BPA/MODL / [id number]
[2021-03-09 11:50] LABS: Glucose, Whole Blood 208 mg/dL (60-115)
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
[2021-03-09] MEDS: Enoxaparin Sodium 40 MG/0.4 ML SYRINGE SUBCUT (13:34)
[2021-03-09] MEDS: LORazepam 2 MG/ML VIAL IVPUSH ×3 (14:27→22:00)
[2021-03-09 16:33] VITALS: BP 114/73; PULSE 105; TEMP 35.9; O2SAT 96
[2021-03-09] MEDS: 0.9 % Sodium Chloride Flush 3 ML SYRINGE IVFLUSH (17:22)
[2021-03-09 23:45] LABS: Glucose, Whole Blood 138 mg/dL (60-115)
[2021-03-09 23:45] LABS: Glucose, Whole Blood 169 mg/dL (60-115)
[2021-03-10] MEDS: 0.9 % Sodium Chloride Flush 3 ML SYRINGE IVFLUSH ×2 (02:18→09:20)
[2021-03-10 09:10] LABS: Glucose, Whole Blood 146 mg/dL (60-115)
[2021-03-10] MEDS: LORazepam 2 MG/ML VIAL IVPUSH ×2 (09:20→12:41)
[2021-03-10] MEDS: Multivitamin TABLET 1 TAB PO (09:20)
[2021-03-10 09:47] VITALS: BP 143/93; PULSE 96; RESP 14; TEMP 36.2; O2SAT 96
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
[2021-03-10 12:11] LABS: Anion Gap 15 (12-20); Blood Urea Nitrogen 22 mg/dL (9-16); Calcium 9.8 mg/dL (8.4-10.2); Carbon Dioxide 24 mmol/L (22-29); Chloride 109 mmol/L (96-108); Estimated Glomerular Filt Rate > 60; Glucose Random 215 mg/dL (60-115); Potassium 3.5 mmol/L (3.3-5.1); Sodium 144 mmol/L (135-145)
[2021-03-10 12:39] LABS: Glucose, Whole Blood 184 mg/dL (60-115)
[2021-03-10] MEDS: Insulin Lispro 100 UNIT/ML 3 ML VIAL SUBCUT ×3 (12:42→21:38)
[2021-03-10] MEDS: Enoxaparin Sodium 40 MG/0.4 ML SYRINGE SUBCUT (12:42)
[2021-03-10] MEDS: LORazepam 1 MG TABLET 2 MG PO ×2 (17:31→21:38)
[2021-03-10 17:57] LABS: Glucose, Whole Blood 157 mg/dL (60-115)
[2021-03-10] MEDS: Atorvastatin Calcium 20 MG TABLET PO (21:38)
[2021-03-10 22:26] LABS: Glucose, Whole Blood 285 mg/dL (60-115)
[2021-03-11] MEDS: 0.9 % Sodium Chloride Flush 3 ML SYRINGE IVFLUSH (00:34)
[2021-03-11 07:00] VITALS: BMI 29.8
[2021-03-11] MEDS: LORazepam 1 MG TABLET 2 MG PO ×5 (07:04→20:11)
[2021-03-11 08:01] LABS: Glucose, Whole Blood 146 mg/dL (60-115)
[2021-03-11 09:00] VITALS: BP 117/77; PULSE 96; RESP 16; TEMP 36.4
[2021-03-11] MEDS: Multivitamin TABLET 1 TAB PO (09:07)
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
[2021-03-11 09:19] LABS: Anion Gap 12 (12-20); Blood Urea Nitrogen 19 mg/dL (9-16); Carbon Dioxide 27 mmol/L (22-29); Chloride 106 mmol/L (96-108); Creatinine Clr Calc Pharmacy 118.8; Estimated Glomerular Filt Rate > 60; Glucose Random 156 mg/dL (60-115); Potassium 3.1 mmol/L (3.3-5.1); Sodium 142 mmol/L (135-145)
[2021-03-11 12:10] LABS: Glucose, Whole Blood 214 mg/dL (60-115)
[2021-03-11] MEDS: Insulin Lispro 100 UNIT/ML 3 ML VIAL SUBCUT ×2 (12:12→20:50)
[2021-03-11] MEDS: Potassium Chloride ER 20 MEQ TAB.ER.PRT PO (13:31)
[2021-03-11 16:55] LABS: Glucose, Whole Blood 143 mg/dL (60-115)
[2021-03-11] MEDS: Atorvastatin Calcium 20 MG TABLET PO (20:11)
[2021-03-11 20:44] LABS: Glucose, Whole Blood 241 mg/dL (60-115)
[2021-03-11 21:11] VITALS: BP 151/90; PULSE 99; TEMP 36.5; O2SAT 97
[2021-03-12] MEDS: chlorproMAZINE HCl 100 MG TABLET PO (01:45)
[2021-03-12] MEDS: LORazepam 1 MG TABLET 2 MG PO ×4 (04:53→19:48)
[2021-03-12 06:42] LABS: Glucose, Whole Blood 175 mg/dL (60-115)
[2021-03-12] MEDS: Insulin Lispro 100 UNIT/ML 3 ML VIAL SUBCUT ×3 (06:45→19:59)
[2021-03-12 08:39] LABS: Alanine Aminotransferase 55 U/L (0-40); Albumin Level 3.8 g/dL (3.5-5.0); Alkaline Phosphatase 84 U/L (39-117); Anion Gap 12 (12-20); Aspartate Amino Transferase 31 U/L (5-37); Bilirubin Total 0.6 mg/dL (0.0-1.0); Blood Urea Nitrogen 16 mg/dL (9-16); Calcium 8.9 mg/dL (8.4-10.2); Carbon Dioxide 27 mmol/L (22-29); Chloride 108 mmol/L (96-108); Creatinine Clr Calc Pharmacy 130.7; Estimated Glomerular Filt Rate > 60; Glucose Random 147 mg/dL (60-115); Potassium 3.4 mmol/L (3.3-5.1); Sodium 144 mmol/L (135-145); Total Protein 5.6 g/dL (6.5-8.0)
[2021-03-12 12:04] LABS: Glucose, Whole Blood 123 mg/dL (60-115)
--- NOTE | 2021-03-12 15:49 | P.CONHOSP_ITS ---
History of Present Illness Data of Consult Service Date: 03/12/21 Requesting physician: Fredo Prieto Primary Care Provider: Talat Snow MD HPI Reason for consult: Preop ECT Asked to see a 50-year-old male for medical risk stratification prior to ECT. Sugar stable on sliding scale Review of Systems Review of Systems: Yes Unobtainable due to mental condition [facility] Medical History Bipolar 1 disorder Depression Diabetes Pertinent family history: none pertinent Social History Household Members: Spouse Housing: Unknown / Unable to assess Do you presently have visiting nurse or other home services: No Unable to assess alcohol history related to: Unable to respond and Unknown Patient Tobacco Use Status: Tobacco use Unknown Use of substances other than those prescribed or required for medical reasons: Unable to respond Currently Displaying Signs/Symptoms of Drug Intoxication Withdrawal: No Advance Directives: No Advance Directives Information Provided: No Advance Directives on File: No Do you have thoughts of harming others: None Do you have a plan to hurt others: No Plan Recently lost weight without trying: Unsure Nutrition Risks: Difficulty chewing and Difficulty swallowing Poor oral hygiene: Yes service: No Sexual orientation: Straight/Heterosexual Meds Allergies Allergy/AdvReac Type Severity Reaction Status Date / Time No Known Allergies Allergy Unverified 03/05/20 17:38 [No Known Allergies*] all antipsychotics AdvReac Severe see below Uncoded 03/04/21 09:40 Active Medications: Current Medications Acetaminophen (Acetaminophen 325 Mg Tablet) 650 mg PO Q6H PRN PRN Reason: Headache/Pain Mild Scale (1-3) Al Hydroxide/Mg Hydroxide (Magnesium Hydrox/Alum Hydrox 30 Ml Oral.Susp) 30 ml PO Q6H PRN PRN Reason: Heartburn/Nausea Atorvastatin Calcium (Atorvastatin Calcium 20 Mg Tablet) 20 mg PO BEDTIME [facility] Last Admin: 03/11/21 20:11 Dose: 20 mg Documented by: Dextrose (Dextrose 50 % 25 Gm/50 Ml Vial) 25 gm IVPUSH Q15M PRN; Protocol PRN Reason: per Hypoglycemia Standing Ord. Enoxaparin Sodium (Enoxaparin Sodium 40 Mg/0.4 Ml Syringe) 40 mg SUBCUT Q24H [facility] Last Admin: 03/12/21 13:22 Dose: Not Given Documented by: Glucose (Glucose Gel 15 Gm Gel..Gram.) 15 gm PO Q15M PRN; Protocol PRN Reason: per Hypoglycemia Standing Ord. Insulin Human Lispro (Insulin Lispro 100 Unit/Ml 3 Ml Vial) 0 unit SUBCUT QIDA [facility]; Protocol Last Admin: 03/12/21 12:10 Dose: Not Given Documented by: Labetalol HCl (Labetalol Hcl 100 Mg/20 Ml Vial) 10 mg IVPUSH Q4H PRN PRN Reason: bp>180/90 Lorazepam (Lorazepam 1 Mg Tablet) 2 mg PO QID [facility] Last Admin: 03/12/21 12:43 Dose: 2 mg Documented by: Magnesium Hydroxide (Milk Of Magnesia 30 Ml Oral.Susp) 30 ml PO DAILY PRN PRN Reason: Constipation Multivitamins/Vitamin C (Multivitamin Tablet) 1 tab PO DAILY [facility] Last Admin: 03/12/21 12:52 Dose: Not Given Documented by: Nicotine Polacrilex (Nicotine Polacrilex 2 Mg Gum) 4 mg BUCCAL Q2H PRN PRN Reason: Nicotine Cravings Last Admin: 03/09/21 09:46 Dose: 4 mg Documented by: Pharmacy Consult (Consult Rx Perform Med Rec) 1 each MISCELLANE ONCE PRN PRN Reason: Consult order Home Medications Medication Instructions Recorded Confirmed Last Taken Type atorvastatin 20 mg tablet 1 tab PO BEDTIME 03/01/21 03/01/21 02/28/21 History empagliflozin 10 mg tablet 1 tab PO QAM 03/01/21 03/01/21 02/28/21 History (Jardiance) glipizide 10 mg tablet, extended 1 tab PO DAILY 03/01/21 03/01/21 02/28/21 History release 24 hr lorazepam 1 mg tablet 1 mg PO TID 03/01/21 03/01/21 03/01/21 History metformin 1,000 mg tablet 1 tab PO BID 03/01/21 03/01/21 02/28/21 History multivitamin 1 tab PO DAILY 03/01/21 03/01/21 02/28/21 History olanzapine 10 mg tablet 10 mg PO BEDTIME 03/01/21 03/01/21 Unknown History sertraline 100 mg tablet 2 tab PO QAM 03/01/21 03/01/21 03/01/21 History Physical Exam Vital Signs and Narrative: Vital Signs: Last Vital Signs Temp 97.7 F 03/11/21 21:11 Pulse 99 03/11/21 21:11 Resp 16 03/11/21 09:00 BP 151/90 H 03/11/21 21:11 Pulse Ox 97 03/11/21 21:11 Body Mass Index 29.8 Const: Other: Nonverbal no acute distress HENMT: Other: Oral pharynx clear; membranes moist Resp: Auscultation: clear to auscultation bilaterally, no rales, no rhonchi and no wheezes Cardio: Rate: regular rate Rhythm: regular rhythm Heart sounds: S1 normal heart sound present, S2 normal heart sound present and no murmurs GI: Other: Soft nontender nondistended with normoactive bowel sounds Neuro: Other: Patient not cooperative for exam; cranial nerves 2-12 grossly intact as tested motor is 5/5 all extremities; sensation appears to be intact. Nonverbal Results Labs CBC and Chem 7: 03/09/21 08:18 03/12/21 08:02 Labs: Laboratory Results - last 24 hr 03/11/21 03/11/21 03/12/21 16:48 20:35 06:38 Anion Gap Estim Creat Clear Calc Estimated GFR POC Glucose 143 H 241 H 175 H Random Glucose Calcium Total Bilirubin AST ALT Alkaline Phosphatase Total Protein Albumin 03/12/21 03/12/21 08:02 12:00 Anion Gap 12 Estim Creat Clear Calc 130.7 Estimated GFR > 60 POC Glucose 123 H Random Glucose 147 H Calcium 8.9 Total Bilirubin 0.6 AST 31 ALT 55 H Alkaline Phosphatase 84 Total Protein 5.6 L Albumin 3.8 ECG Interpretation: Normal sinus rhythm Nonspecific ST and T wave abnormality Abnormal ECG When compared with ECG of 05-MAR-2021 11:25, No significant change was found Assessment and Plan (1) Pre-op evaluation: Status: Acute Mr. Nogueira is a moderate but acceptable cardiovascular risk for planned ECT. There are no medically prohibitive factors. May proceed as per Psychiatry
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
[2021-03-12 16:18] VITALS: BP 139/84; PULSE 129; TEMP 36.1
[2021-03-12] MEDS: Atorvastatin Calcium 20 MG TABLET PO (19:48)
[2021-03-12 20:01] LABS: Glucose, Whole Blood 181 mg/dL (60-115)
[2021-03-12 20:01] LABS: Glucose, Whole Blood 191 mg/dL (60-115)
[2021-03-13] MEDS: LORazepam 1 MG TABLET 2 MG PO ×4 (03:20→21:28)
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
[2021-03-13 09:42] LABS: Glucose, Whole Blood 130 mg/dL (60-115)
[2021-03-13] MEDS: Multivitamin TABLET 1 TAB PO (09:50)
[2021-03-13 12:34] LABS: Glucose, Whole Blood 277 mg/dL (60-115)
[2021-03-13] MEDS: Insulin Lispro 100 UNIT/ML 3 ML VIAL SUBCUT (16:38)
[2021-03-13 17:46] LABS: Glucose, Whole Blood 265 mg/dL (60-115)
[2021-03-13 21:00] VITALS: BP 132/84; PULSE 106; TEMP 35.7; O2SAT 97
[2021-03-13 21:16] LABS: Glucose, Whole Blood 130 mg/dL (60-115)
[2021-03-13] MEDS: Atorvastatin Calcium 20 MG TABLET PO (21:27)
[2021-03-14 09:00] LABS: Glucose, Whole Blood 163 mg/dL (60-115)
[2021-03-14] MEDS: LORazepam 1 MG TABLET 2 MG PO ×3 (09:26→21:40)
[2021-03-14] MEDS: Multivitamin TABLET 1 TAB PO (09:26)
[2021-03-14 16:49] VITALS: BP 146/93; PULSE 107; TEMP 35.6; O2SAT 97
[2021-03-14 21:40] LABS: Glucose, Whole Blood 140 mg/dL (60-115)
[2021-03-14] MEDS: Atorvastatin Calcium 20 MG TABLET PO (21:40)
[2021-03-15] VITALS (11 sets, daily range): BP systolic 111–161; BP diastolic 69–101; PULSE 50–97; RESP 16–20; TEMP 36.1–37.1; O2SAT 94–100
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
--- NOTE | 2021-03-15 06:41 | MHC.SHP ---
Pre-Procedural Eval Section A Date of Service: 03/15/21 The patient is an INPATIENT: Yes Changes since office visit: No Cold of Flu in the past 2 weeks, No New Medical Problems, No Changes in Medication and No Patient answered all questions The History & Physical has been completed within 30 days and I have reviewed it.: Yes Section B Chief Complaint: acute psychosis, pre ECT assessment Details of Present Illness: Currently catatonic Relevant Family History (Specify if Yes): No Relevant Social History: None Present Medications: see Short Stay Collaborative assessment Medical History: No relevant PMH History of Previous Operations: No relevant previous surgery Allergies: Allergies Allergy/AdvReac Type Severity Reaction Status Date / Time No Known Allergies Allergy Unverified 03/05/20 17:38 [No Known Allergies*] all antipsychotics AdvReac Severe see below Uncoded 03/04/21 09:40 Review of Systems Sugical H&P ROS: Negative: Constitution, Cardiovascular, Respiratory, Neurological, Psychiatric, Hem-Onc, Allergic/Immunologic, Gastrointestinal, Genitourinary, Musculoskeletal, Integumentary, Endocrine and Eyes/Ears/Nose/Throat Review of Systems Comment: Unable to fully assess due to catatonia Exam Surgical H&P Exam: Normal: HEENT, Normal: Heart, Normal: Lungs, Normal: Extremities, Normal: Abdomen, Normal: Skin and Normal: Neurological Plan Diagnosis/Plan: Unchanged I have reviewed the history and physical and performed a pertinent physical examination on my patient. No changes have occurred unless specified.
--- NOTE | 2021-03-15 06:43 | HO.ECTPROC ---
ECT Procedure Note Diagnosis/Treatment Date of Service: 03/15/21 Diagnosis: Bipolar disorder Current Treatment Number: 1 Treatment: Series Interval Clinical Notes: Referred for catatonia, he was able to answer yes/no, looks internally preoccupied and disorganizez. ECT Settings Device: THYMATRON DGx Electrode Placement: Bitemporal Program/Pulse Width: 0.25 Energy Percent: 100 Seizure Duration By EEG (in seconds): 78 By Motor Observation (in seconds): 25 Medications Administration General Anesthetic: Etomidate (16) Muscle Relaxant: Succinylcholine (100) Ancillary Medications Analgesics: Torodol - Pre ECT Anti-emetics: Zofran - Pre ECT Miscillaneous Medications: Propofol (30) Airway Management Airway Management: Bag Mask Ventilation Treatment Recommendations Electrode Placement: Bifrontal Program/Pulse Width: 0.25 Energy Percent: 80 Pt Tolerated Procedure w/o Issue: Yes
[2021-03-15 08:37] LABS: Glucose, Whole Blood 170 mg/dL (60-115)
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
--- NOTE | 2021-03-15 12:25 | P.CONAN_ITS ---
HPI - Anesthesia Eval Consult details Narrative: Bopolar Disorder [facility] Active Problems Active Problems: All Active Problems (Updated 03/12/21 @ 15:56 by Chang Mason DO) Pre-op evaluation (Acute) Hypernatremia (Acute) Hypokalemia, inadequate intake (Acute) Preop cardiovascular exam (Acute) Rhabdomyolysis (Acute) Bipolar I disorder with catatonia (Acute) Catatonic excitement (Acute) Bipolar disorder (Acute) Type 2 diabetes mellitus (Chronic) Past Medical History Medical History Bipolar 1 disorder Depression Diabetes Family History Family history of problems with anesthesia: No Surgical History History of Problems with Anesthesia: No Social History Social History Household Members: Spouse Housing: Unknown / Unable to assess Do you presently have visiting nurse or other home services: No Unable to assess alcohol history related to: Unable to respond and Unknown Patient Tobacco Use Status: Tobacco use Unknown Use of substances other than those prescribed or required for medical reasons: Unable to respond Currently Displaying Signs/Symptoms of Drug Intoxication Withdrawal: No Advance Directives: No Advance Directives Information Provided: No Advance Directives on File: No Do you have thoughts of harming others: None Do you have a plan to hurt others: No Plan Recently lost weight without trying: Unsure Nutrition Risks: Difficulty chewing and Difficulty swallowing Poor oral hygiene: Yes service: No Sexual orientation: Straight/Heterosexual Meds Allergies Allergy/AdvReac Type Severity Reaction Status Date / Time No Known Allergies Allergy Unverified 03/05/20 17:38 [No Known Allergies*] all antipsychotics AdvReac Severe see below Uncoded 03/04/21 09:40 Active Medications: Current Medications Acetaminophen (Acetaminophen 325 Mg Tablet) 650 mg PO Q6H PRN PRN Reason: Headache/Pain Mild Scale (1-3) Al Hydroxide/Mg Hydroxide (Magnesium Hydrox/Alum Hydrox 30 Ml Oral.Susp) 30 ml PO Q6H PRN PRN Reason: Heartburn/Nausea Atorvastatin Calcium (Atorvastatin Calcium 20 Mg Tablet) 20 mg PO BEDTIME KATEY Last Admin: 03/14/21 21:40 Dose: 20 mg Documented by: Dextrose (Dextrose 50 % 25 Gm/50 Ml Vial) 25 gm IVPUSH Q15M PRN; Protocol PRN Reason: per Hypoglycemia Standing Ord. Enoxaparin Sodium (Enoxaparin Sodium 40 Mg/0.4 Ml Syringe) 40 mg SUBCUT Q24H [facility] Last Admin: 03/14/21 14:27 Dose: Not Given Documented by: Glucose (Glucose Gel 15 Gm Gel..Gram.) 15 gm PO Q15M PRN; Protocol PRN Reason: per Hypoglycemia Standing Ord. Insulin Human Lispro (Insulin Lispro 100 Unit/Ml 3 Ml Vial) 0 unit SUBCUT QIDACHS [facility]; Protocol Last Admin: 03/15/21 09:04 Dose: Not Given Documented by: Labetalol HCl (Labetalol Hcl 100 Mg/20 Ml Vial) 10 mg IVPUSH Q4H PRN PRN Reason: bp>180/90 Lorazepam (Lorazepam 1 Mg Tablet) 2 mg PO TID KATEY Magnesium Hydroxide (Milk Of Magnesia 30 Ml Oral.Susp) 30 ml PO DAILY PRN PRN Reason: Constipation Multivitamins/Vitamin C (Multivitamin Tablet) 1 tab PO DAILY [facility] Last Admin: 03/14/21 09:26 Dose: 1 tab Documented by: Nicotine Polacrilex (Nicotine Polacrilex 2 Mg Gum) 4 mg BUCCAL Q2H PRN PRN Reason: Nicotine Cravings Last Admin: 03/09/21 09:46 Dose: 4 mg Documented by: Pharmacy Consult (Consult Rx Perform Med Rec) 1 each MISCELLANE ONCE PRN PRN Reason: Consult order Home Medications Medication Instructions Recorded Confirmed Last Taken Type atorvastatin 20 mg tablet 1 tab PO BEDTIME 03/01/21 03/01/21 02/28/21 History empagliflozin 10 mg tablet 1 tab PO QAM 03/01/21 03/01/21 02/28/21 History (Jardiance) glipizide 10 mg tablet, extended 1 tab PO DAILY 03/01/21 03/01/21 02/28/21 History release 24 hr lorazepam 1 mg tablet 1 mg PO TID 03/01/21 03/01/21 03/01/21 History metformin 1,000 mg tablet 1 tab PO BID 03/01/21 03/01/21 02/28/21 History multivitamin 1 tab PO DAILY 03/01/21 03/01/21 02/28/21 History olanzapine 10 mg tablet 10 mg PO BEDTIME 03/01/21 03/01/21 Unknown History sertraline 100 mg tablet 2 tab PO QAM 03/01/21 03/01/21 03/01/21 History Exam Exam Date and Time: March 15, 2021 1225 Height,Weight and Vital Signs: Height 6 ft 1 in Weight 102.6 kg Last Vital Signs Temp 97.0 F 03/15/21 09:55 Pulse 95 03/15/21 09:55 Resp 16 03/15/21 09:55 BP 161/84 H 03/15/21 09:55 Pulse Ox 97 03/15/21 09:55 Pertinent Lab Results Pertinent Lab Results: Laboratory Tests 03/01/21 03/01/21 03/01/21 14:37 14:49 14:49 WBC 11.7 H RBC 5.27 Hgb 14.5 Hct 44.2 MCV 83.9 MCH 27.5 MCHC 32.8 RDW 13.9 Plt Count 277 MPV 11.0 Immature Gran % (Auto) 0.6 H Neut % (Auto) 78.6 H Lymph % (Auto) 13.9 L [place] % (Auto) 6.6 Eos % (Auto) 0.0 Baso % (Auto) 0.3 Lymph # (Auto) 1.6 [place] # (Auto) 0.8 Eos # (Auto) 0.0 Baso # (Auto) 0.0 Abs Immat Gran (auto) 0.07 H Absolute Neuts (auto) 9.2 H Absolute Nucleated RBC 0.000 Nucleated RBC % (auto) 0.0 D-Dimer Sodium 143 Potassium 4.0 Chloride 107 Carbon Dioxide 21 L Anion Gap 19 BUN 30 H Creatinine 1.16 Estim Creat Clear Calc 87.0 Estimated GFR > 60 POC Glucose Random Glucose 141 H Estimat Average Glucose Hemoglobin A1c % Lactic Acid Calcium 10.6 H Magnesium Total Bilirubin 0.5 Direct Bilirubin 0.2 AST 22 ALT 46 H Alkaline Phosphatase 105 Ammonia Lactate Dehydrogenase Total Creatine Kinase C-Reactive Protein B-Natriuretic Peptide NT-Pro-B Natriuret Pep Total Protein 8.2 H Albumin 5.5 H Vitamin B12 Folate Procalcitonin Urine Color Urine Appearance Urine pH Ur Specific [place] Urine Protein Urine Glucose (UA) Urine Ketones Urine Blood Urine Nitrite Ur Leukocyte Esterase Urine RBC Urine WBC Ur Squamous Epith Cells Urine Bacteria Hyaline Casts Granular Casts Urine Mucus Ethyl Alcohol COVID-19 (JUDITH) Negative COVID-19 Clin Com See Note Hep Bs Antigen Hep Bs Antibody Hep B Core Total Ab Hepatitis C Ab (EIA) 03/01/21 03/02/21 03/02/21 14:49 00:59 01:01 WBC RBC Hgb Hct MCV MCH MCHC RDW Plt Count MPV Immature Gran % (Auto) Neut % (Auto) Lymph % (Auto) [place] % (Auto) Eos % (Auto) Baso % (Auto) Lymph # (Auto) [place] # (Auto) Eos # (Auto) Baso # (Auto) Abs Immat Gran (auto) Absolute Neuts (auto) Absolute Nucleated RBC Nucleated RBC % (auto) D-Dimer Sodium Potassium Chloride Carbon Dioxide Anion Gap BUN Creatinine Estim Creat Clear Calc Estimated GFR POC Glucose 155 H 161 H Random Glucose Estimat Average Glucose Hemoglobin A1c % Lactic Acid Calcium Magnesium Total Bilirubin Direct Bilirubin AST ALT Alkaline Phosphatase Ammonia Lactate Dehydrogenase Total Creatine Kinase C-Reactive Protein B-Natriuretic Peptide NT-Pro-B Natriuret Pep Total Protein Albumin Vitamin B12 Folate Procalcitonin Urine Color Urine Appearance Urine pH Ur Specific [place] Urine Protein Urine Glucose (UA) Urine Ketones Urine Blood Urine Nitrite Ur Leukocyte Esterase Urine RBC Urine WBC Ur Squamous Epith Cells Urine Bacteria Hyaline Casts Granular Casts Urine Mucus Ethyl Alcohol < 10 COVID-19 (JUDITH) COVID-19 Clin Com Hep Bs Antigen Hep Bs Antibody Hep B Core Total Ab Hepatitis C Ab (EIA) 03/02/21 03/03/21 03/03/21 09:30 12:36 12:36 WBC 11.8 H RBC 4.76 Hgb 13.1 L Hct 40.5 L MCV 85.1 MCH 27.5 MCHC 32.3 RDW 14.0 Plt Count 265 MPV 10.6 Immature Gran % (Auto) 0.5 H Neut % (Auto) 74.8 H Lymph % (Auto) 16.6 L [place] % (Auto) 7.8 Eos % (Auto) 0.0 Baso % (Auto) 0.3 Lymph # (Auto) 2.0 [place] # (Auto) 0.9 Eos # (Auto) 0.0 Baso # (Auto) 0.0 Abs Immat Gran (auto) 0.06 H Absolute Neuts (auto) 8.8 H Absolute Nucleated RBC 0.000 Nucleated RBC % (auto) 0.0 D-Dimer Sodium 148 H Potassium 3.5 Chloride 114 H Carbon Dioxide 20 L Anion Gap 18 BUN 33 H Creatinine 1.07 Estim Creat Clear Calc 94.3 Estimated GFR > 60 POC Glucose 214 H Random Glucose Estimat Average Glucose Hemoglobin A1c % Lactic Acid Calcium Magnesium Total Bilirubin Direct Bilirubin AST ALT Alkaline Phosphatase Ammonia Lactate Dehydrogenase Total Creatine Kinase C-Reactive Protein B-Natriuretic Peptide NT-Pro-B Natriuret Pep Total Protein Albumin Vitamin B12 Folate Procalcitonin Urine Color Urine Appearance Urine pH Ur Specific [place] Urine Protein Urine Glucose (UA) Urine Ketones Urine Blood Urine Nitrite Ur Leukocyte Esterase Urine RBC Urine WBC Ur Squamous Epith Cells Urine Bacteria Hyaline Casts Granular Casts Urine Mucus Ethyl Alcohol COVID-19 (JUDTIH) COVID-19 Clin Com Hep Bs Antigen Hep Bs Antibody Hep B Core Total Ab Hepatitis C Ab (EIA) 03/03/21 03/03/21 03/03/21 12:36 12:36 12:36 WBC RBC Hgb Hct MCV MCH MCHC RDW Plt Count MPV Immature Gran % (Auto) Neut % (Auto) Lymph % (Auto) [place] % (Auto) Eos % (Auto) Baso % (Auto) Lymph # (Auto) [place] # (Auto) Eos # (Auto) Baso # (Auto) Abs Immat Gran (auto) Absolute Neuts (auto) Absolute Nucleated RBC Nucleated RBC % (auto) D-Dimer Sodium Potassium Chloride Carbon Dioxide Anion Gap BUN Creatinine Estim Creat Clear Calc Estimated GFR POC Glucose Random Glucose Estimat Average Glucose Hemoglobin A1c % Lactic Acid Calcium 10.3 H Magnesium Total Bilirubin 0.8 Direct Bilirubin 0.3 AST 47 H D ALT 37 Alkaline Phosphatase 91 Ammonia 29 Lactate Dehydrogenase Total Creatine Kinase C-Reactive Protein B-Natriuretic Peptide NT-Pro-B Natriuret Pep Total Protein 7.1 Albumin 5.0 Vitamin B12 Folate Procalcitonin Urine Color Urine Appearance Urine pH Ur Specific [place] Urine Protein Urine Glucose (UA) Urine Ketones Urine Blood Urine Nitrite Ur Leukocyte Esterase Urine RBC Urine WBC Ur Squamous Epith Cells Urine Bacteria Hyaline Casts Granular Casts Urine Mucus Ethyl Alcohol COVID-19 (JUDITH) COVID-19 Clin Com Hep Bs Antigen Hep Bs Antibody Hep B Core Total Ab Hepatitis C Ab (EIA) 03/03/21 03/04/21 03/04/21 20:18 07:54 07:54 WBC RBC Hgb Hct MCV MCH MCHC RDW Plt Count MPV Immature Gran % (Auto) Neut % (Auto) Lymph % (Auto) [place] % (Auto) Eos % (Auto) Baso % (Auto) Lymph # (Auto) [place] # (Auto) Eos # (Auto) Baso # (Auto) Abs Immat Gran (auto) Absolute Neuts (auto) Absolute Nucleated RBC Nucleated RBC % (auto) D-Dimer Sodium 146 H Potassium 4.0 Chloride 111 H Carbon Dioxide 18 L Anion Gap 21 H BUN 41 H Creatinine 1.35 Estim Creat Clear Calc 74.8 Estimated GFR 56 POC Glucose 147 H Random Glucose 183 H Estimat Average Glucose 146 Hemoglobin A1c % 6.7 Lactic Acid Calcium 10.8 H Magnesium Total Bilirubin Direct Bilirubin AST ALT Alkaline Phosphatase Ammonia Lactate Dehydrogenase Total Creatine Kinase C-Reactive Protein B-Natriuretic Peptide NT-Pro-B Natriuret Pep Total Protein Albumin Vitamin B12 Folate Procalcitonin Urine Color Urine Appearance Urine pH Ur Specific [place] Urine Protein Urine Glucose (UA) Urine Ketones Urine Blood Urine Nitrite Ur Leukocyte Esterase Urine RBC Urine WBC Ur Squamous Epith Cells Urine Bacteria Hyaline Casts Granular Casts Urine Mucus Ethyl Alcohol COVID-19 (JUDITH) COVID-19 Clin Com Hep Bs Antigen Hep Bs Antibody Hep B Core Total Ab Hepatitis C Ab (EIA) 03/04/21 03/04/21 03/04/21 08:05 12:21 17:08 WBC RBC Hgb Hct MCV MCH MCHC RDW Plt Count MPV Immature Gran % (Auto) Neut % (Auto) Lymph % (Auto) [place] % (Auto) Eos % (Auto) Baso % (Auto) Lymph # (Auto) [place] # (Auto) Eos # (Auto) Baso # (Auto) Abs Immat Gran (auto) Absolute Neuts (auto) Absolute Nucleated RBC Nucleated RBC % (auto) D-Dimer Sodium Potassium Chloride Carbon Dioxide Anion Gap BUN Creatinine Estim Creat Clear Calc Estimated GFR POC Glucose 186 H 191 H 174 H Random Glucose Estimat Average Glucose Hemoglobin A1c % Lactic Acid Calcium Magnesium Total Bilirubin Direct Bilirubin AST ALT Alkaline Phosphatase Ammonia Lactate Dehydrogenase Total Creatine Kinase C-Reactive Protein B-Natriuretic Peptide NT-Pro-B Natriuret Pep Total Protein Albumin Vitamin B12 Folate Procalcitonin Urine Color Urine Appearance Urine pH Ur Specific [place] Urine Protein Urine Glucose (UA) Urine Ketones Urine Blood Urine Nitrite Ur Leukocyte Esterase Urine RBC Urine WBC Ur Squamous Epith Cells Urine Bacteria Hyaline Casts Granular Casts Urine Mucus Ethyl Alcohol COVID-19 (JUDITH) COVID-19 Clin Com Hep Bs Antigen Hep Bs Antibody Hep B Core Total Ab Hepatitis C Ab (EIA) 03/04/21 03/05/21 03/05/21 21:42 08:28 09:32 WBC 8.9 RBC 4.83 Hgb 13.2 L Hct 40.6 L MCV 84.1 MCH 27.3 MCHC 32.5 RDW 13.9 Plt Count 252 MPV 11.5 Immature Gran % (Auto) 0.9 H Neut % (Auto) 73.6 H Lymph % (Auto) 18.2 L [place] % (Auto) 7.1 Eos % (Auto) 0.0 Baso % (Auto) 0.2 Lymph # (Auto) 1.6 [place] # (Auto) 0.6 Eos # (Auto) 0.0 Baso # (Auto) 0.0 Abs Immat Gran (auto) 0.08 H Absolute Neuts (auto) 6.5 Absolute Nucleated RBC 0.000 Nucleated RBC % (auto) 0.0 D-Dimer Sodium Potassium Chloride Carbon Dioxide Anion Gap BUN Creatinine Estim Creat Clear Calc Estimated GFR POC Glucose 212 H 179 H Random Glucose Estimat Average Glucose Hemoglobin A1c % Lactic Acid Calcium Magnesium Total Bilirubin Direct Bilirubin AST ALT Alkaline Phosphatase Ammonia Lactate Dehydrogenase Total Creatine Kinase C-Reactive Protein B-Natriuretic Peptide NT-Pro-B Natriuret Pep Total Protein Albumin Vitamin B12 Folate Procalcitonin Urine Color Urine Appearance Urine pH Ur Specific [place] Urine Protein Urine Glucose (UA) Urine Ketones Urine Blood Urine Nitrite Ur Leukocyte Esterase Urine RBC Urine WBC Ur Squamous Epith Cells Urine Bacteria Hyaline Casts Granular Casts Urine Mucus Ethyl Alcohol COVID-19 (JUDITH) COVID-19 Clin Com Hep Bs Antigen Hep Bs Antibody Hep B Core Total Ab Hepatitis C Ab (EIA) 03/05/21 03/05/21 03/06/21 09:32 17:32 06:42 WBC RBC Hgb Hct MCV MCH MCHC RDW Plt Count MPV Immature Gran % (Auto) Neut % (Auto) Lymph % (Auto) [place] % (Auto) Eos % (Auto) Baso % (Auto) Lymph # (Auto) [place] # (Auto) Eos # (Auto) Baso # (Auto) Abs Immat Gran (auto) Absolute Neuts (auto) Absolute Nucleated RBC Nucleated RBC % (auto) D-Dimer Sodium 149 H Potassium 3.3 Chloride 116 H Carbon Dioxide 24 Anion Gap 12 BUN 36 H Creatinine 1.09 Estim Creat Clear Calc 92.6 Estimated GFR > 60 POC Glucose 241 H 172 H Random Glucose Estimat Average Glucose Hemoglobin A1c % Lactic Acid Calcium Magnesium Total Bilirubin 0.7 Direct Bilirubin 0.3 AST 72 H ALT 51 H Alkaline Phosphatase 88 Ammonia Lactate Dehydrogenase 235 Total Creatine Kinase 1870 H C-Reactive Protein B-Natriuretic Peptide NT-Pro-B Natriuret Pep Total Protein 6.6 Albumin 4.6 Vitamin B12 Folate Procalcitonin Urine Color Urine Appearance Urine pH Ur Specific [place] Urine Protein Urine Glucose (UA) Urine Ketones Urine Blood Urine Nitrite Ur Leukocyte Esterase Urine RBC Urine WBC Ur Squamous Epith Cells Urine Bacteria Hyaline Casts Granular Casts Urine Mucus Ethyl Alcohol COVID-19 (JUDITH) COVID-19 Clin Com Hep Bs Antigen Hep Bs Antibody Hep B Core Total Ab Hepatitis C Ab (EIA) 03/06/21 03/06/21 03/06/21 09:22 09:23 09:23 WBC RBC Hgb Hct MCV MCH MCHC RDW Plt Count MPV Immature Gran % (Auto) Neut % (Auto) Lymph % (Auto) [place] % (Auto) Eos % (Auto) Baso % (Auto) Lymph # (Auto) [place] # (Auto) Eos # (Auto) Baso # (Auto) Abs Immat Gran (auto) Absolute Neuts (auto) Absolute Nucleated RBC Nucleated RBC % (auto) D-Dimer Sodium 150 H Potassium 3.3 Chloride 117 H Carbon Dioxide 20 L Anion Gap 16 BUN 31 H Creatinine 1.22 Estim Creat Clear Calc 82.7 Estimated GFR > 60 POC Glucose Random Glucose 205 H Estimat Average Glucose Hemoglobin A1c % Lactic Acid Calcium 9.4 D Magnesium Total Bilirubin 1.0 Direct Bilirubin 0.4 AST 73 H ALT 65 H Alkaline Phosphatase 91 Ammonia Lactate Dehydrogenase Total Creatine Kinase 1633 H C-Reactive Protein B-Natriuretic Peptide NT-Pro-B Natriuret Pep Total Protein 6.8 Albumin 4.6 Vitamin B12 1285 H Folate 19.3 Procalcitonin Urine Color Urine Appearance Urine pH Ur Specific [place] Urine Protein Urine Glucose (UA) Urine Ketones Urine Blood Urine Nitrite Ur Leukocyte Esterase Urine RBC Urine WBC Ur Squamous Epith Cells Urine Bacteria Hyaline Casts Granular Casts Urine Mucus Ethyl Alcohol COVID-19 (JUDITH) COVID-19 Clin Com Hep Bs Antigen Negative Hep Bs Antibody REACTIVE Hep B Core Total Ab Nonreactive Hepatitis C Ab (EIA) Nonreactive 03/06/21 03/06/21 03/06/21 12:26 16:56 21:37 WBC RBC Hgb Hct MCV MCH MCHC RDW Plt Count MPV Immature Gran % (Auto) Neut % (Auto) Lymph % (Auto) [place] % (Auto) Eos % (Auto) Baso % (Auto) Lymph # (Auto) [place] # (Auto) Eos # (Auto) Baso # (Auto) Abs Immat Gran (auto) Absolute Neuts (auto) Absolute Nucleated RBC Nucleated RBC % (auto) D-Dimer Sodium Potassium Chloride Carbon Dioxide Anion Gap BUN Creatinine Estim Creat Clear Calc Estimated GFR POC Glucose 203 H 217 H 189 H Random Glucose Estimat Average Glucose Hemoglobin A1c % Lactic Acid Calcium Magnesium Total Bilirubin Direct Bilirubin AST ALT Alkaline Phosphatase Ammonia Lactate Dehydrogenase Total Creatine Kinase C-Reactive Protein B-Natriuretic Peptide NT-Pro-B Natriuret Pep Total Protein Albumin Vitamin B12 Folate Procalcitonin Urine Color Urine Appearance Urine pH Ur Specific [place] Urine Protein Urine Glucose (UA) Urine Ketones Urine Blood Urine Nitrite Ur Leukocyte Esterase Urine RBC Urine WBC Ur Squamous Epith Cells Urine Bacteria Hyaline Casts Granular Casts Urine Mucus Ethyl Alcohol COVID-19 (JUDITH) COVID-19 Clin Com Hep Bs Antigen Hep Bs Antibody Hep B Core Total Ab Hepatitis C Ab (EIA) 03/07/21 03/07/21 03/07/21 06:36 08:03 08:23 WBC RBC Hgb Hct MCV MCH MCHC RDW Plt Count MPV Immature Gran % (Auto) Neut % (Auto) Lymph % (Auto) [place] % (Auto) Eos % (Auto) Baso % (Auto) Lymph # (Auto) [place] # (Auto) Eos # (Auto) Baso # (Auto) Abs Immat Gran (auto) Absolute Neuts (auto) Absolute Nucleated RBC Nucleated RBC % (auto) D-Dimer Sodium 147 H Potassium 3.0 L Chloride 113 H Carbon Dioxide 25 Anion Gap 12 BUN 24 H Creatinine 0.86 Estim Creat Clear Calc 117.4 Estimated GFR > 60 POC Glucose 186 H 175 H Random Glucose 200 H Estimat Average Glucose Hemoglobin A1c % Lactic Acid Calcium 8.7 D Magnesium Total Bilirubin Direct Bilirubin AST ALT Alkaline Phosphatase Ammonia Lactate Dehydrogenase Total Creatine Kinase 972 H D C-Reactive Protein B-Natriuretic Peptide NT-Pro-B Natriuret Pep Total Protein Albumin Vitamin B12 Folate Procalcitonin Urine Color Urine Appearance Urine pH Ur Specific [place] Urine Protein Urine Glucose (UA) Urine Ketones Urine Blood Urine Nitrite Ur Leukocyte Esterase Urine RBC Urine WBC Ur Squamous Epith Cells Urine Bacteria Hyaline Casts Granular Casts Urine Mucus Ethyl Alcohol COVID-19 (JUDITH) COVID-19 Clin Com Hep Bs Antigen Hep Bs Antibody Hep B Core Total Ab Hepatitis C Ab (EIA) 03/07/21 03/07/21 03/07/21 13:13 16:35 21:22 WBC RBC Hgb Hct MCV MCH MCHC RDW Plt Count MPV Immature Gran % (Auto) Neut % (Auto) Lymph % (Auto) [place] % (Auto) Eos % (Auto) Baso % (Auto) Lymph # (Auto) [place] # (Auto) Eos # (Auto) Baso # (Auto) Abs Immat Gran (auto) Absolute Neuts (auto) Absolute Nucleated RBC Nucleated RBC % (auto) D-Dimer Sodium Potassium Chloride Carbon Dioxide Anion Gap BUN Creatinine Estim Creat Clear Calc Estimated GFR POC Glucose 165 H 190 H Random Glucose Estimat Average Glucose Hemoglobin A1c % Lactic Acid 0.8 Calcium Magnesium Total Bilirubin Direct Bilirubin AST ALT Alkaline Phosphatase Ammonia Lactate Dehydrogenase Total Creatine Kinase C-Reactive Protein B-Natriuretic Peptide NT-Pro-B Natriuret Pep Total Protein Albumin Vitamin B12 Folate Procalcitonin Urine Color Urine Appearance Urine pH Ur Specific [place] Urine Protein Urine Glucose (UA) Urine Ketones Urine Blood Urine Nitrite Ur Leukocyte Esterase Urine RBC Urine WBC Ur Squamous Epith Cells Urine Bacteria Hyaline Casts Granular Casts Urine Mucus Ethyl Alcohol COVID-19 (JUDITH) COVID-19 Clin Com Hep Bs Antigen Hep Bs Antibody Hep B Core Total Ab Hepatitis C Ab (EIA) 03/07/21 03/07/21 03/07/21 21:22 21:23 21:23 WBC 8.2 RBC 4.37 L Hgb 12.1 L Hct 36.1 L MCV 82.6 MCH 27.7 MCHC 33.5 RDW 13.3 Plt Count 189 MPV 11.2 Immature Gran % (Auto) 0.6 H Neut % (Auto) 65.9 Lymph % (Auto) 25.1 [place] % (Auto) 7.5 Eos % (Auto) 0.7 Baso % (Auto) 0.2 Lymph # (Auto) 2.1 [place] # (Auto) 0.6 Eos # (Auto) 0.1 Baso # (Auto) 0.0 Abs Immat Gran (auto) 0.05 H Absolute Neuts (auto) 5.4 Absolute Nucleated RBC 0.000 Nucleated RBC % (auto) 0.0 D-Dimer 337 Sodium Potassium Chloride Carbon Dioxide Anion Gap BUN Creatinine Estim Creat Clear Calc Estimated GFR POC Glucose Random Glucose Estimat Average Glucose Hemoglobin A1c % Lactic Acid Calcium Magnesium Total Bilirubin Direct Bilirubin AST ALT Alkaline Phosphatase Ammonia Lactate Dehydrogenase Total Creatine Kinase C-Reactive Protein B-Natriuretic Peptide NT-Pro-B Natriuret Pep Total Protein Albumin Vitamin B12 Folate Procalcitonin Urine Color YELLOW Urine Appearance CLEAR Urine pH 6.0 Ur Specific [place] >= 1.030 H Urine Protein TRACE Urine Glucose (UA) >=1000 H Urine Ketones NEG Urine Blood NEG Urine Nitrite NEG Ur Leukocyte Esterase NEG Urine RBC 1-4 Urine WBC 1-4 Ur Squamous Epith Cells 1+ Urine Bacteria 1+ Hyaline Casts 0-2 Granular Casts 0-2 Urine Mucus 2+ Ethyl Alcohol COVID-19 (JUDITH) COVID-19 Clin Com Hep Bs Antigen Hep Bs Antibody Hep B Core Total Ab Hepatitis C Ab (EIA) 03/07/21 03/07/21 03/07/21 21:23 21:23 21:23 WBC RBC Hgb Hct MCV MCH MCHC RDW Plt Count MPV Immature Gran % (Auto) Neut % (Auto) Lymph % (Auto) [place] % (Auto) Eos % (Auto) Baso % (Auto) Lymph # (Auto) [place] # (Auto) Eos # (Auto) Baso # (Auto) Abs Immat Gran (auto) Absolute Neuts (auto) Absolute Nucleated RBC Nucleated RBC % (auto) D-Dimer Sodium 146 H Potassium 2.9 L Chloride 111 H Carbon Dioxide 25 Anion Gap 13 BUN 21 H Creatinine 0.85 Estim Creat Clear Calc 118.8 Estimated GFR > 60 POC Glucose Random Glucose 124 H D Estimat Average Glucose Hemoglobin A1c % Lactic Acid Calcium 8.7 Magnesium Total Bilirubin 0.6 Direct Bilirubin AST 50 H ALT 56 H Alkaline Phosphatase 79 Ammonia Lactate Dehydrogenase Total Creatine Kinase C-Reactive Protein B-Natriuretic Peptide 86 NT-Pro-B Natriuret Pep Cancelled Total Protein 5.5 L Albumin 3.8 Vitamin B12 Folate Procalcitonin Urine Color Urine Appearance Urine pH Ur Specific [place] Urine Protein Urine Glucose (UA) Urine Ketones Urine Blood Urine Nitrite Ur Leukocyte Esterase Urine RBC Urine WBC Ur Squamous Epith Cells Urine Bacteria Hyaline Casts Granular Casts Urine Mucus Ethyl Alcohol COVID-19 (JUDITH) COVID-19 Clin Com Hep Bs Antigen Hep Bs Antibody Hep B Core Total Ab Hepatitis C Ab (EIA) 03/07/21 03/08/21 03/08/21 21:43 06:32 08:19 WBC RBC Hgb Hct MCV MCH MCHC RDW Plt Count MPV Immature Gran % (Auto) Neut % (Auto) Lymph % (Auto) [place] % (Auto) Eos % (Auto) Baso % (Auto) Lymph # (Auto) [place] # (Auto) Eos # (Auto) Baso # (Auto) Abs Immat Gran (auto) Absolute Neuts (auto) Absolute Nucleated RBC Nucleated RBC % (auto) D-Dimer Sodium 143 Potassium 2.9 L Chloride 108 Carbon Dioxide 26 Anion Gap 12 BUN 17 H Creatinine 0.82 Estim Creat Clear Calc 123.1 Estimated GFR > 60 POC Glucose 127 H 144 H Random Glucose 173 H D Estimat Average Glucose Hemoglobin A1c % Lactic Acid Calcium 8.9 Magnesium 2.0 Total Bilirubin Direct Bilirubin AST ALT Alkaline Phosphatase Ammonia Lactate Dehydrogenase Total Creatine Kinase 584 H D C-Reactive Protein 1.08 H B-Natriuretic Peptide NT-Pro-B Natriuret Pep Total Protein Albumin Vitamin B12 Folate Procalcitonin Urine Color Urine Appearance Urine pH Ur Specific [place] Urine Protein Urine Glucose (UA) Urine Ketones Urine Blood Urine Nitrite Ur Leukocyte Esterase Urine RBC Urine WBC Ur Squamous Epith Cells Urine Bacteria Hyaline Casts Granular Casts Urine Mucus Ethyl Alcohol COVID-19 (JUDITH) COVID-19 Clin Com Hep Bs Antigen Hep Bs Antibody Hep B Core Total Ab Hepatitis C Ab (EIA) 03/08/21 03/08/21 03/08/21 08:19 12:50 17:26 WBC RBC Hgb Hct MCV MCH MCHC RDW Plt Count MPV Immature Gran % (Auto) Neut % (Auto) Lymph % (Auto) [place] % (Auto) Eos % (Auto) Baso % (Auto) Lymph # (Auto) [place] # (Auto) Eos # (Auto) Baso # (Auto) Abs Immat Gran (auto) Absolute Neuts (auto) Absolute Nucleated RBC Nucleated RBC % (auto) D-Dimer Sodium Potassium Chloride Carbon Dioxide Anion Gap BUN Creatinine Estim Creat Clear Calc Estimated GFR POC Glucose 174 H 152 H Random Glucose Estimat Average Glucose Hemoglobin A1c % Lactic Acid Calcium Magnesium Total Bilirubin Direct Bilirubin AST ALT Alkaline Phosphatase Ammonia Lactate Dehydrogenase Total Creatine Kinase C-Reactive Protein B-Natriuretic Peptide NT-Pro-B Natriuret Pep Total Protein Albumin Vitamin B12 Folate Procalcitonin 0.08 Urine Color Urine Appearance Urine pH Ur Specific [place] Urine Protein Urine Glucose (UA) Urine Ketones Urine Blood Urine Nitrite Ur Leukocyte Esterase Urine RBC Urine WBC Ur Squamous Epith Cells Urine Bacteria Hyaline Casts Granular Casts Urine Mucus Ethyl Alcohol COVID-19 (JUDITH) COVID-19 Clin Com Hep Bs Antigen Hep Bs Antibody Hep B Core Total Ab Hepatitis C Ab (EIA) 03/08/21 03/09/21 03/09/21 21:02 06:28 08:18 WBC 7.8 RBC 4.39 L Hgb 12.3 L Hct 36.0 L MCV 82.0 MCH 28.0 MCHC 34.2 RDW 13.3 Plt Count 205 MPV 11.5 Immature Gran % (Auto) Neut % (Auto) Lymph % (Auto) [place] % (Auto) Eos % (Auto) Baso % (Auto) Lymph # (Auto) [place] # (Auto) Eos # (Auto) Baso # (Auto) Abs Immat Gran (auto) Absolute Neuts (auto) Absolute Nucleated RBC 0.000 Nucleated RBC % (auto) 0.0 D-Dimer Sodium Potassium Chloride Carbon Dioxide Anion Gap BUN Creatinine Estim Creat Clear Calc Estimated GFR POC Glucose 197 H 154 H Random Glucose Estimat Average Glucose Hemoglobin A1c % Lactic Acid Calcium Magnesium Total Bilirubin Direct Bilirubin AST ALT Alkaline Phosphatase Ammonia Lactate Dehydrogenase Total Creatine Kinase C-Reactive Protein B-Natriuretic Peptide NT-Pro-B Natriuret Pep Total Protein Albumin Vitamin B12 Folate Procalcitonin Urine Color Urine Appearance Urine pH Ur Specific [place] Urine Protein Urine Glucose (UA) Urine Ketones Urine Blood Urine Nitrite Ur Leukocyte Esterase Urine RBC Urine WBC Ur Squamous Epith Cells Urine Bacteria Hyaline Casts Granular Casts Urine Mucus Ethyl Alcohol COVID-19 (JUDITH) COVID-19 Clin Com Hep Bs Antigen Hep Bs Antibody Hep B Core Total Ab Hepatitis C Ab (EIA) 03/09/21 03/09/21 03/09/21 08:18 08:18 11:46 WBC RBC Hgb Hct MCV MCH MCHC RDW Plt Count MPV Immature Gran % (Auto) Neut % (Auto) Lymph % (Auto) [place] % (Auto) Eos % (Auto) Baso % (Auto) Lymph # (Auto) [place] # (Auto) Eos # (Auto) Baso # (Auto) Abs Immat Gran (auto) Absolute Neuts (auto) Absolute Nucleated RBC Nucleated RBC % (auto) D-Dimer Sodium 144 Potassium 3.2 L Chloride 110 H Carbon Dioxide 26 Anion Gap 11 L BUN 17 H Creatinine 0.85 Estim Creat Clear Calc 118.8 Estimated GFR > 60 POC Glucose 208 H Random Glucose 152 H Estimat Average Glucose Hemoglobin A1c % Lactic Acid Calcium 9.2 Magnesium Total Bilirubin Direct Bilirubin AST ALT Alkaline Phosphatase Ammonia Lactate Dehydrogenase Total Creatine Kinase 299 H D C-Reactive Protein B-Natriuretic Peptide NT-Pro-B Natriuret Pep Total Protein Albumin Vitamin B12 Folate Procalcitonin 0.08 Urine Color Urine Appearance Urine pH Ur Specific [place] Urine Protein Urine Glucose (UA) Urine Ketones Urine Blood Urine Nitrite Ur Leukocyte Esterase Urine RBC Urine WBC Ur Squamous Epith Cells Urine Bacteria Hyaline Casts Granular Casts Urine Mucus Ethyl Alcohol COVID-19 (JUDITH) COVID-19 Clin Com Hep Bs Antigen Hep Bs Antibody Hep B Core Total Ab Hepatitis C Ab (EIA) 03/09/21 03/09/21 03/10/21 16:55 21:50 09:06 WBC RBC Hgb Hct MCV MCH MCHC RDW Plt Count MPV Immature Gran % (Auto) Neut % (Auto) Lymph % (Auto) [place] % (Auto) Eos % (Auto) Baso % (Auto) Lymph # (Auto) [place] # (Auto) Eos # (Auto) Baso # (Auto) Abs Immat Gran (auto) Absolute Neuts (auto) Absolute Nucleated RBC Nucleated RBC % (auto) D-Dimer Sodium Potassium Chloride Carbon Dioxide Anion Gap BUN Creatinine Estim Creat Clear Calc Estimated GFR POC Glucose 138 H 169 H 146 H Random Glucose Estimat Average Glucose Hemoglobin A1c % Lactic Acid Calcium Magnesium Total Bilirubin Direct Bilirubin AST ALT Alkaline Phosphatase Ammonia Lactate Dehydrogenase Total Creatine Kinase C-Reactive Protein B-Natriuretic Peptide NT-Pro-B Natriuret Pep Total Protein Albumin Vitamin B12 Folate Procalcitonin Urine Color Urine Appearance Urine pH Ur Specific [place] Urine Protein Urine Glucose (UA) Urine Ketones Urine Blood Urine Nitrite Ur Leukocyte Esterase Urine RBC Urine WBC Ur Squamous Epith Cells Urine Bacteria Hyaline Casts Granular Casts Urine Mucus Ethyl Alcohol COVID-19 (JUDITH) COVID-19 Clin Com Hep Bs Antigen Hep Bs Antibody Hep B Core Total Ab Hepatitis C Ab (EIA) 03/10/21 03/10/21 03/10/21 11:37 12:34 16:34 WBC RBC Hgb Hct MCV MCH MCHC RDW Plt Count MPV Immature Gran % (Auto) Neut % (Auto) Lymph % (Auto) [place] % (Auto) Eos % (Auto) Baso % (Auto) Lymph # (Auto) [place] # (Auto) Eos # (Auto) Baso # (Auto) Abs Immat Gran (auto) Absolute Neuts (auto) Absolute Nucleated RBC Nucleated RBC % (auto) D-Dimer Sodium 144 Potassium 3.5 Chloride 109 H Carbon Dioxide 24 Anion Gap 15 BUN 22 H Creatinine 0.98 Estim Creat Clear Calc 103.0 Estimated GFR > 60 POC Glucose 184 H 157 H Random Glucose 215 H D Estimat Average Glucose Hemoglobin A1c % Lactic Acid Calcium 9.8 D Magnesium Total Bilirubin Direct Bilirubin AST ALT Alkaline Phosphatase Ammonia Lactate Dehydrogenase Total Creatine Kinase C-Reactive Protein B-Natriuretic Peptide NT-Pro-B Natriuret Pep Total Protein Albumin Vitamin B12 Folate Procalcitonin Urine Color Urine Appearance Urine pH Ur Specific [place] Urine Protein Urine Glucose (UA) Urine Ketones Urine Blood Urine Nitrite Ur Leukocyte Esterase Urine RBC Urine WBC Ur Squamous Epith Cells Urine Bacteria Hyaline Casts Granular Casts Urine Mucus Ethyl Alcohol COVID-19 (JUDITH) COVID-19 Clin Com Hep Bs Antigen Hep Bs Antibody Hep B Core Total Ab Hepatitis C Ab (EIA) 03/10/21 03/11/21 03/11/21 21:28 07:57 08:17 WBC RBC Hgb Hct MCV MCH MCHC RDW Plt Count MPV Immature Gran % (Auto) Neut % (Auto) Lymph % (Auto) [place] % (Auto) Eos % (Auto) Baso % (Auto) Lymph # (Auto) [place] # (Auto) Eos # (Auto) Baso # (Auto) Abs Immat Gran (auto) Absolute Neuts (auto) Absolute Nucleated RBC Nucleated RBC % (auto) D-Dimer Sodium 142 Potassium 3.1 L Chloride 106 Carbon Dioxide 27 Anion Gap 12 BUN 19 H Creatinine 0.85 Estim Creat Clear Calc 118.8 Estimated GFR > 60 POC Glucose 285 H 146 H Random Glucose 156 H Estimat Average Glucose Hemoglobin A1c % Lactic Acid Calcium 9.0 D Magnesium Total Bilirubin Direct Bilirubin AST ALT Alkaline Phosphatase Ammonia Lactate Dehydrogenase Total Creatine Kinase C-Reactive Protein B-Natriuretic Peptide NT-Pro-B Natriuret Pep Total Protein Albumin Vitamin B12 Folate Procalcitonin Urine Color Urine Appearance Urine pH Ur Specific [place] Urine Protein Urine Glucose (UA) Urine Ketones Urine Blood Urine Nitrite Ur Leukocyte Esterase Urine RBC Urine WBC Ur Squamous Epith Cells Urine Bacteria Hyaline Casts Granular Casts Urine Mucus Ethyl Alcohol COVID-19 (JUDITH) COVID-19 Clin Com Hep Bs Antigen Hep Bs Antibody Hep B Core Total Ab Hepatitis C Ab (EIA) 03/11/21 03/11/21 03/11/21 12:05 16:48 20:35 WBC RBC Hgb Hct MCV MCH MCHC RDW Plt Count MPV Immature Gran % (Auto) Neut % (Auto) Lymph % (Auto) [place] % (Auto) Eos % (Auto) Baso % (Auto) Lymph # (Auto) [place] # (Auto) Eos # (Auto) Baso # (Auto) Abs Immat Gran (auto) Absolute Neuts (auto) Absolute Nucleated RBC Nucleated RBC % (auto) D-Dimer Sodium Potassium Chloride Carbon Dioxide Anion Gap BUN Creatinine Estim Creat Clear Calc Estimated GFR POC Glucose 214 H 143 H 241 H Random Glucose Estimat Average Glucose Hemoglobin A1c % Lactic Acid Calcium Magnesium Total Bilirubin Direct Bilirubin AST ALT Alkaline Phosphatase Ammonia Lactate Dehydrogenase Total Creatine Kinase C-Reactive Protein B-Natriuretic Peptide NT-Pro-B Natriuret Pep Total Protein Albumin Vitamin B12 Folate Procalcitonin Urine Color Urine Appearance Urine pH Ur Specific [place] Urine Protein Urine Glucose (UA) Urine Ketones Urine Blood Urine Nitrite Ur Leukocyte Esterase Urine RBC Urine WBC Ur Squamous Epith Cells Urine Bacteria Hyaline Casts Granular Casts Urine Mucus Ethyl Alcohol COVID-19 (JUDITH) COVID-19 Clin Com Hep Bs Antigen Hep Bs Antibody Hep B Core Total Ab Hepatitis C Ab (EIA) 03/12/21 03/12/21 03/12/21 06:38 08:02 12:00 WBC RBC Hgb Hct MCV MCH MCHC RDW Plt Count MPV Immature Gran % (Auto) Neut % (Auto) Lymph % (Auto) [place] % (Auto) Eos % (Auto) Baso % (Auto) Lymph # (Auto) [place] # (Auto) Eos # (Auto) Baso # (Auto) Abs Immat Gran (auto) Absolute Neuts (auto) Absolute Nucleated RBC Nucleated RBC % (auto) D-Dimer Sodium 144 Potassium 3.4 Chloride 108 Carbon Dioxide 27 Anion Gap 12 BUN 16 Creatinine 0.86 Estim Creat Clear Calc 130.7 Estimated GFR > 60 POC Glucose 175 H 123 H Random Glucose 147 H Estimat Average Glucose Hemoglobin A1c % Lactic Acid Calcium 8.9 Magnesium Total Bilirubin 0.6 Direct Bilirubin AST 31 ALT 55 H Alkaline Phosphatase 84 Ammonia Lactate Dehydrogenase Total Creatine Kinase C-Reactive Protein B-Natriuretic Peptide NT-Pro-B Natriuret Pep Total Protein 5.6 L Albumin 3.8 Vitamin B12 Folate Procalcitonin Urine Color Urine Appearance Urine pH Ur Specific [place] Urine Protein Urine Glucose (UA) Urine Ketones Urine Blood Urine Nitrite Ur Leukocyte Esterase Urine RBC Urine WBC Ur Squamous Epith Cells Urine Bacteria Hyaline Casts Granular Casts Urine Mucus Ethyl Alcohol COVID-19 (JUDITH) COVID-19 Clin Com Hep Bs Antigen Hep Bs Antibody Hep B Core Total Ab Hepatitis C Ab (EIA) 03/12/21 03/12/21 03/13/21 17:25 19:57 09:17 WBC RBC Hgb Hct MCV MCH MCHC RDW Plt Count MPV Immature Gran % (Auto) Neut % (Auto) Lymph % (Auto) [place] % (Auto) Eos % (Auto) Baso % (Auto) Lymph # (Auto) [place] # (Auto) Eos # (Auto) Baso # (Auto) Abs Immat Gran (auto) Absolute Neuts (auto) Absolute Nucleated RBC Nucleated RBC % (auto) D-Dimer Sodium Potassium Chloride Carbon Dioxide Anion Gap BUN Creatinine Estim Creat Clear Calc Estimated GFR POC Glucose 181 H 191 H 130 H Random Glucose Estimat Average Glucose Hemoglobin A1c % Lactic Acid Calcium Magnesium Total Bilirubin Direct Bilirubin AST ALT Alkaline Phosphatase Ammonia Lactate Dehydrogenase Total Creatine Kinase C-Reactive Protein B-Natriuretic Peptide NT-Pro-B Natriuret Pep Total Protein Albumin Vitamin B12 Folate Procalcitonin Urine Color Urine Appearance Urine pH Ur Specific [place] Urine Protein Urine Glucose (UA) Urine Ketones Urine Blood Urine Nitrite Ur Leukocyte Esterase Urine RBC Urine WBC Ur Squamous Epith Cells Urine Bacteria Hyaline Casts Granular Casts Urine Mucus Ethyl Alcohol COVID-19 (JUDITH) COVID-19 Clin Com Hep Bs Antigen Hep Bs Antibody Hep B Core Total Ab Hepatitis C Ab (EIA) 03/13/21 03/13/21 03/13/21 12:29 16:31 21:12 WBC RBC Hgb Hct MCV MCH MCHC RDW Plt Count MPV Immature Gran % (Auto) Neut % (Auto) Lymph % (Auto) [place] % (Auto) Eos % (Auto) Baso % (Auto) Lymph # (Auto) [place] # (Auto) Eos # (Auto) Baso # (Auto) Abs Immat Gran (auto) Absolute Neuts (auto) Absolute Nucleated RBC Nucleated RBC % (auto) D-Dimer Sodium Potassium Chloride Carbon Dioxide Anion Gap BUN Creatinine Estim Creat Clear Calc Estimated GFR POC Glucose 277 H 265 H 130 H Random Glucose Estimat Average Glucose Hemoglobin A1c % Lactic Acid Calcium Magnesium Total Bilirubin Direct Bilirubin AST ALT Alkaline Phosphatase Ammonia Lactate Dehydrogenase Total Creatine Kinase C-Reactive Protein B-Natriuretic Peptide NT-Pro-B Natriuret Pep Total Protein Albumin Vitamin B12 Folate Procalcitonin Urine Color Urine Appearance Urine pH Ur Specific [place] Urine Protein Urine Glucose (UA) Urine Ketones Urine Blood Urine Nitrite Ur Leukocyte Esterase Urine RBC Urine WBC Ur Squamous Epith Cells Urine Bacteria Hyaline Casts Granular Casts Urine Mucus Ethyl Alcohol COVID-19 (JUDITH) COVID-19 Clin Com Hep Bs Antigen Hep Bs Antibody Hep B Core Total Ab Hepatitis C Ab (EIA) 03/14/21 03/14/21 03/15/21 08:52 21:35 08:33 WBC RBC Hgb Hct MCV MCH MCHC RDW Plt Count MPV Immature Gran % (Auto) Neut % (Auto) Lymph % (Auto) [place] % (Auto) Eos % (Auto) Baso % (Auto) Lymph # (Auto) [place] # (Auto) Eos # (Auto) Baso # (Auto) Abs Immat Gran (auto) Absolute Neuts (auto) Absolute Nucleated RBC Nucleated RBC % (auto) D-Dimer Sodium Potassium Chloride Carbon Dioxide Anion Gap BUN Creatinine Estim Creat Clear Calc Estimated GFR POC Glucose 163 H 140 H 170 H Random Glucose Estimat Average Glucose Hemoglobin A1c % Lactic Acid Calcium Magnesium Total Bilirubin Direct Bilirubin AST ALT Alkaline Phosphatase Ammonia Lactate Dehydrogenase Total Creatine Kinase C-Reactive Protein B-Natriuretic Peptide NT-Pro-B Natriuret Pep Total Protein Albumin Vitamin B12 Folate Procalcitonin Urine Color Urine Appearance Urine pH Ur Specific [place] Urine Protein Urine Glucose (UA) Urine Ketones Urine Blood Urine Nitrite Ur Leukocyte Esterase Urine RBC Urine WBC Ur Squamous Epith Cells Urine Bacteria Hyaline Casts Granular Casts Urine Mucus Ethyl Alcohol COVID-19 (JUDITH) COVID-19 Clin Com Hep Bs Antigen Hep Bs Antibody Hep B Core Total Ab Hepatitis C Ab (EIA) Airway Mallampati Class: III TM Dist: >3cm Neck ROM: Limited Loose/Missing/Broken Teeth: Yes (poor dentition) Heart: [id number] Lungs: cta b/l Assessment and Plan Assessment Anesthesia Assessment: Anesthesia Plan Discussed and Chart Reviewed Final Anesthetic Review Family History of Problems with Anesthesia: No History of Problems with Anesthesia: No NPO: Yes ASA Class: III Final Preanesthetic Review: No Changes in Pt Med Stat, Meds/Allgs Chart Reviewed, Consent Obtained/Reviewed and Anes Risks/Benef Reviewed Patient Risk: Intermediate Procedure Risk: Intermediate Assessment/Block/Sedation in SS: Assess/Block/Sedation-SS Anesthetic Plan Anesthetic Plan: GA and Agree w/ Assess. and Plan Disposition: Standard PACU
[2021-03-15] MEDS: Enoxaparin Sodium 40 MG/0.4 ML SYRINGE SUBCUT (14:38)
[2021-03-15] MEDS: LORazepam 1 MG TABLET 2 MG PO ×2 (14:38→20:31)
[2021-03-15 18:05] LABS: Glucose, Whole Blood 130 mg/dL (60-115)
[2021-03-15] MEDS: Insulin Lispro 100 UNIT/ML 3 ML VIAL SUBCUT (20:31)
[2021-03-15] MEDS: Atorvastatin Calcium 20 MG TABLET PO (20:31)
[2021-03-15 21:59] LABS: Glucose, Whole Blood 227 mg/dL (60-115)
[2021-03-16 07:12] LABS: Glucose, Whole Blood 162 mg/dL (60-115)
[2021-03-16 08:34] VITALS: BP 142/79; PULSE 100; TEMP 36.1; O2SAT 93
[2021-03-16] MEDS: LORazepam 1 MG TABLET 2 MG PO ×3 (08:43→22:05)
[2021-03-16] MEDS: Multivitamin TABLET 1 TAB PO (08:44)
[2021-03-16] MEDS: Insulin Lispro 100 UNIT/ML 3 ML VIAL SUBCUT ×3 (08:44→22:05)
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
[2021-03-16 12:28] LABS: Glucose, Whole Blood 145 mg/dL (60-115)
[2021-03-16] MEDS: Enoxaparin Sodium 40 MG/0.4 ML SYRINGE SUBCUT (15:03)
[2021-03-16 16:29] VITALS: BP 129/79; PULSE 95; TEMP 36.2; O2SAT 98
[2021-03-16 16:52] LABS: Glucose, Whole Blood 171 mg/dL (60-115)
[2021-03-16 21:53] LABS: Glucose, Whole Blood 179 mg/dL (60-115)
[2021-03-16] MEDS: Atorvastatin Calcium 20 MG TABLET PO (22:05)
[2021-03-17] VITALS (11 sets, daily range): BP systolic 108–135; BP diastolic 60–94; PULSE 52–97; RESP 12–20; TEMP 36.1–36.8; O2SAT 94–100; BMI 29.7
--- NOTE | 2021-03-17 06:54 | HO.ANESPROP2 ---
HPI - Anesthesia Eval Consult details Narrative: 50yo male patient for ECT PMFSH Active Problems Active Problems: All Active Problems (Updated 03/12/21 @ 15:56 by Chang Mason DO) Pre-op evaluation (Acute) Hypernatremia (Acute) Hypokalemia, inadequate intake (Acute) Preop cardiovascular exam (Acute) Rhabdomyolysis (Acute) Bipolar I disorder with catatonia (Acute) Catatonic excitement (Acute) Bipolar disorder (Acute) Type 2 diabetes mellitus (Chronic) Past Medical History Medical History Bipolar 1 disorder Depression Diabetes Family History Family history of problems with anesthesia: No Surgical History History of Problems with Anesthesia: No Social History Social History Household Members: Spouse Housing: Unknown / Unable to assess Do you presently have visiting nurse or other home services: No Unable to assess alcohol history related to: Unable to respond and Unknown Patient Tobacco Use Status: Tobacco use Unknown Smoked in Last 30 Days: No Use of substances other than those prescribed or required for medical reasons: Unable to respond Currently Displaying Signs/Symptoms of Drug Intoxication Withdrawal: No Are you DNR?: No Advance Directives: No Advance Directives Information Provided: No Advance Directives on File: No Do you have thoughts of harming others: None Do you have a plan to hurt others: No Plan Recently lost weight without trying: No Nutrition Risks: Difficulty chewing and Difficulty swallowing Poor oral hygiene: Yes service: No Sexual orientation: Straight/Heterosexual Meds Allergies Allergy/AdvReac Type Severity Reaction Status Date / Time No Known Allergies Allergy Unverified 03/05/20 17:38 [No Known Allergies*] all antipsychotics AdvReac Severe see below Uncoded 03/04/21 09:40 Active Medications: Current Medications Acetaminophen (Acetaminophen 325 Mg Tablet) 650 mg PO Q6H PRN PRN Reason: Headache/Pain Mild Scale (1-3) Acetaminophen (Acetaminophen 325 Mg Tablet) 650 mg PO ONCE PRN PRN Reason: Pain, Mild (Pain Scale 1-3) Al Hydroxide/Mg Hydroxide (Magnesium Hydrox/Alum Hydrox 30 Ml Oral.Susp) 30 ml PO Q6H PRN PRN Reason: Heartburn/Nausea Atorvastatin Calcium (Atorvastatin Calcium 20 Mg Tablet) 20 mg PO BEDTIME KATEY Last Admin: 03/16/21 22:05 Dose: 20 mg Documented by: Enoxaparin Sodium (Enoxaparin Sodium 40 Mg/0.4 Ml Syringe) 40 mg SUBCUT Q24H [facility] Last Admin: 03/16/21 15:03 Dose: 40 mg Documented by: Glucose (Glucose Gel 15 Gm Gel..Gram.) 15 gm PO Q15M PRN; Protocol PRN Reason: per Hypoglycemia Standing Ord. Insulin Human Lispro (Insulin Lispro 100 Unit/Ml 3 Ml Vial) 0 unit SUBCUT QIDACHS [facility]; Protocol Last Admin: 03/16/21 22:05 Dose: 2 unit Documented by: Labetalol HCl (Labetalol Hcl 100 Mg/20 Ml Vial) 10 mg IVPUSH Q4H PRN PRN Reason: bp>180/90 Lorazepam (Lorazepam 1 Mg Tablet) 2 mg PO TID [facility] Last Admin: 03/16/21 22:05 Dose: 2 mg Documented by: Magnesium Hydroxide (Milk Of Magnesia 30 Ml Oral.Susp) 30 ml PO DAILY PRN PRN Reason: Constipation Multivitamins/Vitamin C (Multivitamin Tablet) 1 tab PO DAILY [facility] Last Admin: 03/16/21 08:44 Dose: 1 tab Documented by: Nicotine Polacrilex (Nicotine Polacrilex 2 Mg Gum) 4 mg BUCCAL Q2H PRN PRN Reason: Nicotine Cravings Last Admin: 03/09/21 09:46 Dose: 4 mg Documented by: Ondansetron HCl (Ondansetron Hcl 4 Mg/2 Ml Vial) 4 mg IVPUSH ONCE PRN PRN Reason: Nausea and Vomiting Oxycodone HCl (Oxycodone Hcl Immed Release 5 Mg Tablet) 10 mg PO ONCE PRN PRN Reason: Pain, Severe (Pain Scale 7-10) Pharmacy Consult (Consult Rx Perform Med Rec) 1 each MISCELLANE ONCE PRN PRN Reason: Consult order Home Medications Medication Instructions Recorded Confirmed Last Taken Type atorvastatin 20 mg tablet 1 tab PO BEDTIME 03/01/21 03/01/21 02/28/21 History empagliflozin 10 mg tablet 1 tab PO QAM 03/01/21 03/01/21 02/28/21 History (Jardiance) glipizide 10 mg tablet, extended 1 tab PO DAILY 03/01/21 03/01/21 02/28/21 History release 24 hr lorazepam 1 mg tablet 1 mg PO TID 03/01/21 03/01/21 03/01/21 History metformin 1,000 mg tablet 1 tab PO BID 03/01/21 03/01/21 02/28/21 History multivitamin 1 tab PO DAILY 03/01/21 03/01/21 02/28/21 History olanzapine 10 mg tablet 10 mg PO BEDTIME 03/01/21 03/01/21 Unknown History sertraline 100 mg tablet 2 tab PO QAM 03/01/21 03/01/21 03/01/21 History Exam Exam Date and Time: March 17, 2021 0654 Height,Weight and Vital Signs: Height 6 ft 1 in Weight 102.6 kg Last Vital Signs Temp 97.0 F 03/17/21 06:24 Pulse 74 03/17/21 06:24 Resp 18 03/17/21 06:24 BP 108/60 03/17/21 06:24 Pulse Ox 100 03/17/21 06:24 Pertinent Lab Results Pertinent Lab Results: Laboratory Tests 03/01/21 03/01/21 03/01/21 14:37 14:49 14:49 WBC 11.7 H RBC 5.27 Hgb 14.5 Hct 44.2 MCV 83.9 MCH 27.5 MCHC 32.8 RDW 13.9 Plt Count 277 MPV 11.0 Immature Gran % (Auto) 0.6 H Neut % (Auto) 78.6 H Lymph % (Auto) 13.9 L [place] % (Auto) 6.6 Eos % (Auto) 0.0 Baso % (Auto) 0.3 Lymph # (Auto) 1.6 [place] # (Auto) 0.8 Eos # (Auto) 0.0 Baso # (Auto) 0.0 Abs Immat Gran (auto) 0.07 H Absolute Neuts (auto) 9.2 H Absolute Nucleated RBC 0.000 Nucleated RBC % (auto) 0.0 D-Dimer Sodium 143 Potassium 4.0 Chloride 107 Carbon Dioxide 21 L Anion Gap 19 BUN 30 H Creatinine 1.16 Estim Creat Clear Calc 87.0 Estimated GFR > 60 POC Glucose Random Glucose 141 H Estimat Average Glucose Hemoglobin A1c % Lactic Acid Calcium 10.6 H Magnesium Total Bilirubin 0.5 Direct Bilirubin 0.2 AST 22 ALT 46 H Alkaline Phosphatase 105 Ammonia Lactate Dehydrogenase Total Creatine Kinase C-Reactive Protein B-Natriuretic Peptide NT-Pro-B Natriuret Pep Total Protein 8.2 H Albumin 5.5 H Vitamin B12 Folate Procalcitonin Urine Color Urine Appearance Urine pH Ur Specific [place] Urine Protein Urine Glucose (UA) Urine Ketones Urine Blood Urine Nitrite Ur Leukocyte Esterase Urine RBC Urine WBC Ur Squamous Epith Cells Urine Bacteria Hyaline Casts Granular Casts Urine Mucus Ethyl Alcohol COVID-19 (JUDITH) Negative COVID-19 Clin Com See Note Hep Bs Antigen Hep Bs Antibody Hep B Core Total Ab Hepatitis C Ab (EIA) 03/01/21 03/02/21 03/02/21 14:49 00:59 01:01 WBC RBC Hgb Hct MCV MCH MCHC RDW Plt Count MPV Immature Gran % (Auto) Neut % (Auto) Lymph % (Auto) [place] % (Auto) Eos % (Auto) Baso % (Auto) Lymph # (Auto) [place] # (Auto) Eos # (Auto) Baso # (Auto) Abs Immat Gran (auto) Absolute Neuts (auto) Absolute Nucleated RBC Nucleated RBC % (auto) D-Dimer Sodium Potassium Chloride Carbon Dioxide Anion Gap BUN Creatinine Estim Creat Clear Calc Estimated GFR POC Glucose 155 H 161 H Random Glucose Estimat Average Glucose Hemoglobin A1c % Lactic Acid Calcium Magnesium Total Bilirubin Direct Bilirubin AST ALT Alkaline Phosphatase Ammonia Lactate Dehydrogenase Total Creatine Kinase C-Reactive Protein B-Natriuretic Peptide NT-Pro-B Natriuret Pep Total Protein Albumin Vitamin B12 Folate Procalcitonin Urine Color Urine Appearance Urine pH Ur Specific [place] Urine Protein Urine Glucose (UA) Urine Ketones Urine Blood Urine Nitrite Ur Leukocyte Esterase Urine RBC Urine WBC Ur Squamous Epith Cells Urine Bacteria Hyaline Casts Granular Casts Urine Mucus Ethyl Alcohol < 10 COVID-19 (JUDITH) COVID-19 Clin Com Hep Bs Antigen Hep Bs Antibody Hep B Core Total Ab Hepatitis C Ab (EIA) 03/02/21 03/03/21 03/03/21 09:30 12:36 12:36 WBC 11.8 H RBC 4.76 Hgb 13.1 L Hct 40.5 L MCV 85.1 MCH 27.5 MCHC 32.3 RDW 14.0 Plt Count 265 MPV 10.6 Immature Gran % (Auto) 0.5 H Neut % (Auto) 74.8 H Lymph % (Auto) 16.6 L [place] % (Auto) 7.8 Eos % (Auto) 0.0 Baso % (Auto) 0.3 Lymph # (Auto) 2.0 [place] # (Auto) 0.9 Eos # (Auto) 0.0 Baso # (Auto) 0.0 Abs Immat Gran (auto) 0.06 H Absolute Neuts (auto) 8.8 H Absolute Nucleated RBC 0.000 Nucleated RBC % (auto) 0.0 D-Dimer Sodium 148 H Potassium 3.5 Chloride 114 H Carbon Dioxide 20 L Anion Gap 18 BUN 33 H Creatinine 1.07 Estim Creat Clear Calc 94.3 Estimated GFR > 60 POC Glucose 214 H Random Glucose Estimat Average Glucose Hemoglobin A1c % Lactic Acid Calcium Magnesium Total Bilirubin Direct Bilirubin AST ALT Alkaline Phosphatase Ammonia Lactate Dehydrogenase Total Creatine Kinase C-Reactive Protein B-Natriuretic Peptide NT-Pro-B Natriuret Pep Total Protein Albumin Vitamin B12 Folate Procalcitonin Urine Color Urine Appearance Urine pH Ur Specific [place] Urine Protein Urine Glucose (UA) Urine Ketones Urine Blood Urine Nitrite Ur Leukocyte Esterase Urine RBC Urine WBC Ur Squamous Epith Cells Urine Bacteria Hyaline Casts Granular Casts Urine Mucus Ethyl Alcohol COVID-19 (JUDITH) COVID-19 Clin Com Hep Bs Antigen Hep Bs Antibody Hep B Core Total Ab Hepatitis C Ab (EIA) 03/03/21 03/03/21 03/03/21 12:36 12:36 12:36 WBC RBC Hgb Hct MCV MCH MCHC RDW Plt Count MPV Immature Gran % (Auto) Neut % (Auto) Lymph % (Auto) [place] % (Auto) Eos % (Auto) Baso % (Auto) Lymph # (Auto) [place] # (Auto) Eos # (Auto) Baso # (Auto) Abs Immat Gran (auto) Absolute Neuts (auto) Absolute Nucleated RBC Nucleated RBC % (auto) D-Dimer Sodium Potassium Chloride Carbon Dioxide Anion Gap BUN Creatinine Estim Creat Clear Calc Estimated GFR POC Glucose Random Glucose Estimat Average Glucose Hemoglobin A1c % Lactic Acid Calcium 10.3 H Magnesium Total Bilirubin 0.8 Direct Bilirubin 0.3 AST 47 H D ALT 37 Alkaline Phosphatase 91 Ammonia 29 Lactate Dehydrogenase Total Creatine Kinase C-Reactive Protein B-Natriuretic Peptide NT-Pro-B Natriuret Pep Total Protein 7.1 Albumin 5.0 Vitamin B12 Folate Procalcitonin Urine Color Urine Appearance Urine pH Ur Specific [place] Urine Protein Urine Glucose (UA) Urine Ketones Urine Blood Urine Nitrite Ur Leukocyte Esterase Urine RBC Urine WBC Ur Squamous Epith Cells Urine Bacteria Hyaline Casts Granular Casts Urine Mucus Ethyl Alcohol COVID-19 (JUDITH) COVID-19 Clin Com Hep Bs Antigen Hep Bs Antibody Hep B Core Total Ab Hepatitis C Ab (EIA) 03/03/21 03/04/21 03/04/21 20:18 07:54 07:54 WBC RBC Hgb Hct MCV MCH MCHC RDW Plt Count MPV Immature Gran % (Auto) Neut % (Auto) Lymph % (Auto) [place] % (Auto) Eos % (Auto) Baso % (Auto) Lymph # (Auto) [place] # (Auto) Eos # (Auto) Baso # (Auto) Abs Immat Gran (auto) Absolute Neuts (auto) Absolute Nucleated RBC Nucleated RBC % (auto) D-Dimer Sodium 146 H Potassium 4.0 Chloride 111 H Carbon Dioxide 18 L Anion Gap 21 H BUN 41 H Creatinine 1.35 Estim Creat Clear Calc 74.8 Estimated GFR 56 POC Glucose 147 H Random Glucose 183 H Estimat Average Glucose 146 Hemoglobin A1c % 6.7 Lactic Acid Calcium 10.8 H Magnesium Total Bilirubin Direct Bilirubin AST ALT Alkaline Phosphatase Ammonia Lactate Dehydrogenase Total Creatine Kinase C-Reactive Protein B-Natriuretic Peptide NT-Pro-B Natriuret Pep Total Protein Albumin Vitamin B12 Folate Procalcitonin Urine Color Urine Appearance Urine pH Ur Specific [place] Urine Protein Urine Glucose (UA) Urine Ketones Urine Blood Urine Nitrite Ur Leukocyte Esterase Urine RBC Urine WBC Ur Squamous Epith Cells Urine Bacteria Hyaline Casts Granular Casts Urine Mucus Ethyl Alcohol COVID-19 (JUDITH) COVID-19 Clin Com Hep Bs Antigen Hep Bs Antibody Hep B Core Total Ab Hepatitis C Ab (EIA) 03/04/21 03/04/21 03/04/21 08:05 12:21 17:08 WBC RBC Hgb Hct MCV MCH MCHC RDW Plt Count MPV Immature Gran % (Auto) Neut % (Auto) Lymph % (Auto) [place] % (Auto) Eos % (Auto) Baso % (Auto) Lymph # (Auto) [place] # (Auto) Eos # (Auto) Baso # (Auto) Abs Immat Gran (auto) Absolute Neuts (auto) Absolute Nucleated RBC Nucleated RBC % (auto) D-Dimer Sodium Potassium Chloride Carbon Dioxide Anion Gap BUN Creatinine Estim Creat Clear Calc Estimated GFR POC Glucose 186 H 191 H 174 H Random Glucose Estimat Average Glucose Hemoglobin A1c % Lactic Acid Calcium Magnesium Total Bilirubin Direct Bilirubin AST ALT Alkaline Phosphatase Ammonia Lactate Dehydrogenase Total Creatine Kinase C-Reactive Protein B-Natriuretic Peptide NT-Pro-B Natriuret Pep Total Protein Albumin Vitamin B12 Folate Procalcitonin Urine Color Urine Appearance Urine pH Ur Specific [place] Urine Protein Urine Glucose (UA) Urine Ketones Urine Blood Urine Nitrite Ur Leukocyte Esterase Urine RBC Urine WBC Ur Squamous Epith Cells Urine Bacteria Hyaline Casts Granular Casts Urine Mucus Ethyl Alcohol COVID-19 (JUDITH) COVID-19 Clin Com Hep Bs Antigen Hep Bs Antibody Hep B Core Total Ab Hepatitis C Ab (EIA) 03/04/21 03/05/21 03/05/21 21:42 08:28 09:32 WBC 8.9 RBC 4.83 Hgb 13.2 L Hct 40.6 L MCV 84.1 MCH 27.3 MCHC 32.5 RDW 13.9 Plt Count 252 MPV 11.5 Immature Gran % (Auto) 0.9 H Neut % (Auto) 73.6 H Lymph % (Auto) 18.2 L [place] % (Auto) 7.1 Eos % (Auto) 0.0 Baso % (Auto) 0.2 Lymph # (Auto) 1.6 [place] # (Auto) 0.6 Eos # (Auto) 0.0 Baso # (Auto) 0.0 Abs Immat Gran (auto) 0.08 H Absolute Neuts (auto) 6.5 Absolute Nucleated RBC 0.000 Nucleated RBC % (auto) 0.0 D-Dimer Sodium Potassium Chloride Carbon Dioxide Anion Gap BUN Creatinine Estim Creat Clear Calc Estimated GFR POC Glucose 212 H 179 H Random Glucose Estimat Average Glucose Hemoglobin A1c % Lactic Acid Calcium Magnesium Total Bilirubin Direct Bilirubin AST ALT Alkaline Phosphatase Ammonia Lactate Dehydrogenase Total Creatine Kinase C-Reactive Protein B-Natriuretic Peptide NT-Pro-B Natriuret Pep Total Protein Albumin Vitamin B12 Folate Procalcitonin Urine Color Urine Appearance Urine pH Ur Specific [place] Urine Protein Urine Glucose (UA) Urine Ketones Urine Blood Urine Nitrite Ur Leukocyte Esterase Urine RBC Urine WBC Ur Squamous Epith Cells Urine Bacteria Hyaline Casts Granular Casts Urine Mucus Ethyl Alcohol COVID-19 (JUDITH) COVID-19 Clin Com Hep Bs Antigen Hep Bs Antibody Hep B Core Total Ab Hepatitis C Ab (EIA) 03/05/21 03/05/21 03/06/21 09:32 17:32 06:42 WBC RBC Hgb Hct MCV MCH MCHC RDW Plt Count MPV Immature Gran % (Auto) Neut % (Auto) Lymph % (Auto) [place] % (Auto) Eos % (Auto) Baso % (Auto) Lymph # (Auto) [place] # (Auto) Eos # (Auto) Baso # (Auto) Abs Immat Gran (auto) Absolute Neuts (auto) Absolute Nucleated RBC Nucleated RBC % (auto) D-Dimer Sodium 149 H Potassium 3.3 Chloride 116 H Carbon Dioxide 24 Anion Gap 12 BUN 36 H Creatinine 1.09 Estim Creat Clear Calc 92.6 Estimated GFR > 60 POC Glucose 241 H 172 H Random Glucose Estimat Average Glucose Hemoglobin A1c % Lactic Acid Calcium Magnesium Total Bilirubin 0.7 Direct Bilirubin 0.3 AST 72 H ALT 51 H Alkaline Phosphatase 88 Ammonia Lactate Dehydrogenase 235 Total Creatine Kinase 1870 H C-Reactive Protein B-Natriuretic Peptide NT-Pro-B Natriuret Pep Total Protein 6.6 Albumin 4.6 Vitamin B12 Folate Procalcitonin Urine Color Urine Appearance Urine pH Ur Specific [place] Urine Protein Urine Glucose (UA) Urine Ketones Urine Blood Urine Nitrite Ur Leukocyte Esterase Urine RBC Urine WBC Ur Squamous Epith Cells Urine Bacteria Hyaline Casts Granular Casts Urine Mucus Ethyl Alcohol COVID-19 (JUDITH) COVID-19 Clin Com Hep Bs Antigen Hep Bs Antibody Hep B Core Total Ab Hepatitis C Ab (EIA) 03/06/21 03/06/21 03/06/21 09:22 09:23 09:23 WBC RBC Hgb Hct MCV MCH MCHC RDW Plt Count MPV Immature Gran % (Auto) Neut % (Auto) Lymph % (Auto) [place] % (Auto) Eos % (Auto) Baso % (Auto) Lymph # (Auto) [place] # (Auto) Eos # (Auto) Baso # (Auto) Abs Immat Gran (auto) Absolute Neuts (auto) Absolute Nucleated RBC Nucleated RBC % (auto) D-Dimer Sodium 150 H Potassium 3.3 Chloride 117 H Carbon Dioxide 20 L Anion Gap 16 BUN 31 H Creatinine 1.22 Estim Creat Clear Calc 82.7 Estimated GFR > 60 POC Glucose Random Glucose 205 H Estimat Average Glucose Hemoglobin A1c % Lactic Acid Calcium 9.4 D Magnesium Total Bilirubin 1.0 Direct Bilirubin 0.4 AST 73 H ALT 65 H Alkaline Phosphatase 91 Ammonia Lactate Dehydrogenase Total Creatine Kinase 1633 H C-Reactive Protein B-Natriuretic Peptide NT-Pro-B Natriuret Pep Total Protein 6.8 Albumin 4.6 Vitamin B12 1285 H Folate 19.3 Procalcitonin Urine Color Urine Appearance Urine pH Ur Specific [place] Urine Protein Urine Glucose (UA) Urine Ketones Urine Blood Urine Nitrite Ur Leukocyte Esterase Urine RBC Urine WBC Ur Squamous Epith Cells Urine Bacteria Hyaline Casts Granular Casts Urine Mucus Ethyl Alcohol COVID-19 (JUDITH) COVID-19 Clin Com Hep Bs Antigen Negative Hep Bs Antibody REACTIVE Hep B Core Total Ab Nonreactive Hepatitis C Ab (EIA) Nonreactive 03/06/21 03/06/21 03/06/21 12:26 16:56 21:37 WBC RBC Hgb Hct MCV MCH MCHC RDW Plt Count MPV Immature Gran % (Auto) Neut % (Auto) Lymph % (Auto) [place] % (Auto) Eos % (Auto) Baso % (Auto) Lymph # (Auto) [place] # (Auto) Eos # (Auto) Baso # (Auto) Abs Immat Gran (auto) Absolute Neuts (auto) Absolute Nucleated RBC Nucleated RBC % (auto) D-Dimer Sodium Potassium Chloride Carbon Dioxide Anion Gap BUN Creatinine Estim Creat Clear Calc Estimated GFR POC Glucose 203 H 217 H 189 H Random Glucose Estimat Average Glucose Hemoglobin A1c % Lactic Acid Calcium Magnesium Total Bilirubin Direct Bilirubin AST ALT Alkaline Phosphatase Ammonia Lactate Dehydrogenase Total Creatine Kinase C-Reactive Protein B-Natriuretic Peptide NT-Pro-B Natriuret Pep Total Protein Albumin Vitamin B12 Folate Procalcitonin Urine Color Urine Appearance Urine pH Ur Specific [place] Urine Protein Urine Glucose (UA) Urine Ketones Urine Blood Urine Nitrite Ur Leukocyte Esterase Urine RBC Urine WBC Ur Squamous Epith Cells Urine Bacteria Hyaline Casts Granular Casts Urine Mucus Ethyl Alcohol COVID-19 (JUDITH) COVID-19 Clin Com Hep Bs Antigen Hep Bs Antibody Hep B Core Total Ab Hepatitis C Ab (EIA) 03/07/21 03/07/21 03/07/21 06:36 08:03 08:23 WBC RBC Hgb Hct MCV MCH MCHC RDW Plt Count MPV Immature Gran % (Auto) Neut % (Auto) Lymph % (Auto) [place] % (Auto) Eos % (Auto) Baso % (Auto) Lymph # (Auto) [place] # (Auto) Eos # (Auto) Baso # (Auto) Abs Immat Gran (auto) Absolute Neuts (auto) Absolute Nucleated RBC Nucleated RBC % (auto) D-Dimer Sodium 147 H Potassium 3.0 L Chloride 113 H Carbon Dioxide 25 Anion Gap 12 BUN 24 H Creatinine 0.86 Estim Creat Clear Calc 117.4 Estimated GFR > 60 POC Glucose 186 H 175 H Random Glucose 200 H Estimat Average Glucose Hemoglobin A1c % Lactic Acid Calcium 8.7 D Magnesium Total Bilirubin Direct Bilirubin AST ALT Alkaline Phosphatase Ammonia Lactate Dehydrogenase Total Creatine Kinase 972 H D C-Reactive Protein B-Natriuretic Peptide NT-Pro-B Natriuret Pep Total Protein Albumin Vitamin B12 Folate Procalcitonin Urine Color Urine Appearance Urine pH Ur Specific [place] Urine Protein Urine Glucose (UA) Urine Ketones Urine Blood Urine Nitrite Ur Leukocyte Esterase Urine RBC Urine WBC Ur Squamous Epith Cells Urine Bacteria Hyaline Casts Granular Casts Urine Mucus Ethyl Alcohol COVID-19 (JUDITH) COVID-19 Clin Com Hep Bs Antigen Hep Bs Antibody Hep B Core Total Ab Hepatitis C Ab (EIA) 03/07/21 03/07/21 03/07/21 13:13 16:35 21:22 WBC RBC Hgb Hct MCV MCH MCHC RDW Plt Count MPV Immature Gran % (Auto) Neut % (Auto) Lymph % (Auto) [place] % (Auto) Eos % (Auto) Baso % (Auto) Lymph # (Auto) [place] # (Auto) Eos # (Auto) Baso # (Auto) Abs Immat Gran (auto) Absolute Neuts (auto) Absolute Nucleated RBC Nucleated RBC % (auto) D-Dimer Sodium Potassium Chloride Carbon Dioxide Anion Gap BUN Creatinine Estim Creat Clear Calc Estimated GFR POC Glucose 165 H 190 H Random Glucose Estimat Average Glucose Hemoglobin A1c % Lactic Acid 0.8 Calcium Magnesium Total Bilirubin Direct Bilirubin AST ALT Alkaline Phosphatase Ammonia Lactate Dehydrogenase Total Creatine Kinase C-Reactive Protein B-Natriuretic Peptide NT-Pro-B Natriuret Pep Total Protein Albumin Vitamin B12 Folate Procalcitonin Urine Color Urine Appearance Urine pH Ur Specific [place] Urine Protein Urine Glucose (UA) Urine Ketones Urine Blood Urine Nitrite Ur Leukocyte Esterase Urine RBC Urine WBC Ur Squamous Epith Cells Urine Bacteria Hyaline Casts Granular Casts Urine Mucus Ethyl Alcohol COVID-19 (JUDITH) COVID-19 Clin Com Hep Bs Antigen Hep Bs Antibody Hep B Core Total Ab Hepatitis C Ab (EIA) 03/07/21 03/07/21 03/07/21 21:22 21:23 21:23 WBC 8.2 RBC 4.37 L Hgb 12.1 L Hct 36.1 L MCV 82.6 MCH 27.7 MCHC 33.5 RDW 13.3 Plt Count 189 MPV 11.2 Immature Gran % (Auto) 0.6 H Neut % (Auto) 65.9 Lymph % (Auto) 25.1 [place] % (Auto) 7.5 Eos % (Auto) 0.7 Baso % (Auto) 0.2 Lymph # (Auto) 2.1 [place] # (Auto) 0.6 Eos # (Auto) 0.1 Baso # (Auto) 0.0 Abs Immat Gran (auto) 0.05 H Absolute Neuts (auto) 5.4 Absolute Nucleated RBC 0.000 Nucleated RBC % (auto) 0.0 D-Dimer 337 Sodium Potassium Chloride Carbon Dioxide Anion Gap BUN Creatinine Estim Creat Clear Calc Estimated GFR POC Glucose Random Glucose Estimat Average Glucose Hemoglobin A1c % Lactic Acid Calcium Magnesium Total Bilirubin Direct Bilirubin AST ALT Alkaline Phosphatase Ammonia Lactate Dehydrogenase Total Creatine Kinase C-Reactive Protein B-Natriuretic Peptide NT-Pro-B Natriuret Pep Total Protein Albumin Vitamin B12 Folate Procalcitonin Urine Color YELLOW Urine Appearance CLEAR Urine pH 6.0 Ur Specific [place] >= 1.030 H Urine Protein TRACE Urine Glucose (UA) >=1000 H Urine Ketones NEG Urine Blood NEG Urine Nitrite NEG Ur Leukocyte Esterase NEG Urine RBC 1-4 Urine WBC 1-4 Ur Squamous Epith Cells 1+ Urine Bacteria 1+ Hyaline Casts 0-2 Granular Casts 0-2 Urine Mucus 2+ Ethyl Alcohol COVID-19 (JUDITH) COVID-19 Clin Com Hep Bs Antigen Hep Bs Antibody Hep B Core Total Ab Hepatitis C Ab (EIA) 03/07/21 03/07/21 03/07/21 21:23 21:23 21:23 WBC RBC Hgb Hct MCV MCH MCHC RDW Plt Count MPV Immature Gran % (Auto) Neut % (Auto) Lymph % (Auto) [place] % (Auto) Eos % (Auto) Baso % (Auto) Lymph # (Auto) [place] # (Auto) Eos # (Auto) Baso # (Auto) Abs Immat Gran (auto) Absolute Neuts (auto) Absolute Nucleated RBC Nucleated RBC % (auto) D-Dimer Sodium 146 H Potassium 2.9 L Chloride 111 H Carbon Dioxide 25 Anion Gap 13 BUN 21 H Creatinine 0.85 Estim Creat Clear Calc 118.8 Estimated GFR > 60 POC Glucose Random Glucose 124 H D Estimat Average Glucose Hemoglobin A1c % Lactic Acid Calcium 8.7 Magnesium Total Bilirubin 0.6 Direct Bilirubin AST 50 H ALT 56 H Alkaline Phosphatase 79 Ammonia Lactate Dehydrogenase Total Creatine Kinase C-Reactive Protein B-Natriuretic Peptide 86 NT-Pro-B Natriuret Pep Cancelled Total Protein 5.5 L Albumin 3.8 Vitamin B12 Folate Procalcitonin Urine Color Urine Appearance Urine pH Ur Specific [place] Urine Protein Urine Glucose (UA) Urine Ketones Urine Blood Urine Nitrite Ur Leukocyte Esterase Urine RBC Urine WBC Ur Squamous Epith Cells Urine Bacteria Hyaline Casts Granular Casts Urine Mucus Ethyl Alcohol COVID-19 (JUDITH) COVID-19 Clin Com Hep Bs Antigen Hep Bs Antibody Hep B Core Total Ab Hepatitis C Ab (EIA) 03/07/21 03/08/21 03/08/21 21:43 06:32 08:19 WBC RBC Hgb Hct MCV MCH MCHC RDW Plt Count MPV Immature Gran % (Auto) Neut % (Auto) Lymph % (Auto) [place] % (Auto) Eos % (Auto) Baso % (Auto) Lymph # (Auto) [place] # (Auto) Eos # (Auto) Baso # (Auto) Abs Immat Gran (auto) Absolute Neuts (auto) Absolute Nucleated RBC Nucleated RBC % (auto) D-Dimer Sodium 143 Potassium 2.9 L Chloride 108 Carbon Dioxide 26 Anion Gap 12 BUN 17 H Creatinine 0.82 Estim Creat Clear Calc 123.1 Estimated GFR > 60 POC Glucose 127 H 144 H Random Glucose 173 H D Estimat Average Glucose Hemoglobin A1c % Lactic Acid Calcium 8.9 Magnesium 2.0 Total Bilirubin Direct Bilirubin AST ALT Alkaline Phosphatase Ammonia Lactate Dehydrogenase Total Creatine Kinase 584 H D C-Reactive Protein 1.08 H B-Natriuretic Peptide NT-Pro-B Natriuret Pep Total Protein Albumin Vitamin B12 Folate Procalcitonin Urine Color Urine Appearance Urine pH Ur Specific [place] Urine Protein Urine Glucose (UA) Urine Ketones Urine Blood Urine Nitrite Ur Leukocyte Esterase Urine RBC Urine WBC Ur Squamous Epith Cells Urine Bacteria Hyaline Casts Granular Casts Urine Mucus Ethyl Alcohol COVID-19 (JUDITH) COVID-19 Clin Com Hep Bs Antigen Hep Bs Antibody Hep B Core Total Ab Hepatitis C Ab (EIA) 03/08/21 03/08/21 03/08/21 08:19 12:50 17:26 WBC RBC Hgb Hct MCV MCH MCHC RDW Plt Count MPV Immature Gran % (Auto) Neut % (Auto) Lymph % (Auto) [place] % (Auto) Eos % (Auto) Baso % (Auto) Lymph # (Auto) [place] # (Auto) Eos # (Auto) Baso # (Auto) Abs Immat Gran (auto) Absolute Neuts (auto) Absolute Nucleated RBC Nucleated RBC % (auto) D-Dimer Sodium Potassium Chloride Carbon Dioxide Anion Gap BUN Creatinine Estim Creat Clear Calc Estimated GFR POC Glucose 174 H 152 H Random Glucose Estimat Average Glucose Hemoglobin A1c % Lactic Acid Calcium Magnesium Total Bilirubin Direct Bilirubin AST ALT Alkaline Phosphatase Ammonia Lactate Dehydrogenase Total Creatine Kinase C-Reactive Protein B-Natriuretic Peptide NT-Pro-B Natriuret Pep Total Protein Albumin Vitamin B12 Folate Procalcitonin 0.08 Urine Color Urine Appearance Urine pH Ur Specific [place] Urine Protein Urine Glucose (UA) Urine Ketones Urine Blood Urine Nitrite Ur Leukocyte Esterase Urine RBC Urine WBC Ur Squamous Epith Cells Urine Bacteria Hyaline Casts Granular Casts Urine Mucus Ethyl Alcohol COVID-19 (JUDITH) COVID-19 Clin Com Hep Bs Antigen Hep Bs Antibody Hep B Core Total Ab Hepatitis C Ab (EIA) 03/08/21 03/09/21 03/09/21 21:02 06:28 08:18 WBC 7.8 RBC 4.39 L Hgb 12.3 L Hct 36.0 L MCV 82.0 MCH 28.0 MCHC 34.2 RDW 13.3 Plt Count 205 MPV 11.5 Immature Gran % (Auto) Neut % (Auto) Lymph % (Auto) [place] % (Auto) Eos % (Auto) Baso % (Auto) Lymph # (Auto) [place] # (Auto) Eos # (Auto) Baso # (Auto) Abs Immat Gran (auto) Absolute Neuts (auto) Absolute Nucleated RBC 0.000 Nucleated RBC % (auto) 0.0 D-Dimer Sodium Potassium Chloride Carbon Dioxide Anion Gap BUN Creatinine Estim Creat Clear Calc Estimated GFR POC Glucose 197 H 154 H Random Glucose Estimat Average Glucose Hemoglobin A1c % Lactic Acid Calcium Magnesium Total Bilirubin Direct Bilirubin AST ALT Alkaline Phosphatase Ammonia Lactate Dehydrogenase Total Creatine Kinase C-Reactive Protein B-Natriuretic Peptide NT-Pro-B Natriuret Pep Total Protein Albumin Vitamin B12 Folate Procalcitonin Urine Color Urine Appearance Urine pH Ur Specific [place] Urine Protein Urine Glucose (UA) Urine Ketones Urine Blood Urine Nitrite Ur Leukocyte Esterase Urine RBC Urine WBC Ur Squamous Epith Cells Urine Bacteria Hyaline Casts Granular Casts Urine Mucus Ethyl Alcohol COVID-19 (JUDITH) COVID-19 Clin Com Hep Bs Antigen Hep Bs Antibody Hep B Core Total Ab Hepatitis C Ab (EIA) 03/09/21 03/09/21 03/09/21 08:18 08:18 11:46 WBC RBC Hgb Hct MCV MCH MCHC RDW Plt Count MPV Immature Gran % (Auto) Neut % (Auto) Lymph % (Auto) [place] % (Auto) Eos % (Auto) Baso % (Auto) Lymph # (Auto) [place] # (Auto) Eos # (Auto) Baso # (Auto) Abs Immat Gran (auto) Absolute Neuts (auto) Absolute Nucleated RBC Nucleated RBC % (auto) D-Dimer Sodium 144 Potassium 3.2 L Chloride 110 H Carbon Dioxide 26 Anion Gap 11 L BUN 17 H Creatinine 0.85 Estim Creat Clear Calc 118.8 Estimated GFR > 60 POC Glucose 208 H Random Glucose 152 H Estimat Average Glucose Hemoglobin A1c % Lactic Acid Calcium 9.2 Magnesium Total Bilirubin Direct Bilirubin AST ALT Alkaline Phosphatase Ammonia Lactate Dehydrogenase Total Creatine Kinase 299 H D C-Reactive Protein B-Natriuretic Peptide NT-Pro-B Natriuret Pep Total Protein Albumin Vitamin B12 Folate Procalcitonin 0.08 Urine Color Urine Appearance Urine pH Ur Specific [place] Urine Protein Urine Glucose (UA) Urine Ketones Urine Blood Urine Nitrite Ur Leukocyte Esterase Urine RBC Urine WBC Ur Squamous Epith Cells Urine Bacteria Hyaline Casts Granular Casts Urine Mucus Ethyl Alcohol COVID-19 (JUDITH) COVID-19 Clin Com Hep Bs Antigen Hep Bs Antibody Hep B Core Total Ab Hepatitis C Ab (EIA) 03/09/21 03/09/21 03/10/21 16:55 21:50 09:06 WBC RBC Hgb Hct MCV MCH MCHC RDW Plt Count MPV Immature Gran % (Auto) Neut % (Auto) Lymph % (Auto) [place] % (Auto) Eos % (Auto) Baso % (Auto) Lymph # (Auto) [place] # (Auto) Eos # (Auto) Baso # (Auto) Abs Immat Gran (auto) Absolute Neuts (auto) Absolute Nucleated RBC Nucleated RBC % (auto) D-Dimer Sodium Potassium Chloride Carbon Dioxide Anion Gap BUN Creatinine Estim Creat Clear Calc Estimated GFR POC Glucose 138 H 169 H 146 H Random Glucose Estimat Average Glucose Hemoglobin A1c % Lactic Acid Calcium Magnesium Total Bilirubin Direct Bilirubin AST ALT Alkaline Phosphatase Ammonia Lactate Dehydrogenase Total Creatine Kinase C-Reactive Protein B-Natriuretic Peptide NT-Pro-B Natriuret Pep Total Protein Albumin Vitamin B12 Folate Procalcitonin Urine Color Urine Appearance Urine pH Ur Specific [place] Urine Protein Urine Glucose (UA) Urine Ketones Urine Blood Urine Nitrite Ur Leukocyte Esterase Urine RBC Urine WBC Ur Squamous Epith Cells Urine Bacteria Hyaline Casts Granular Casts Urine Mucus Ethyl Alcohol COVID-19 (JUDITH) COVID-19 Clin Com Hep Bs Antigen Hep Bs Antibody Hep B Core Total Ab Hepatitis C Ab (EIA) 03/10/21 03/10/21 03/10/21 11:37 12:34 16:34 WBC RBC Hgb Hct MCV MCH MCHC RDW Plt Count MPV Immature Gran % (Auto) Neut % (Auto) Lymph % (Auto) [place] % (Auto) Eos % (Auto) Baso % (Auto) Lymph # (Auto) [place] # (Auto) Eos # (Auto) Baso # (Auto) Abs Immat Gran (auto) Absolute Neuts (auto) Absolute Nucleated RBC Nucleated RBC % (auto) D-Dimer Sodium 144 Potassium 3.5 Chloride 109 H Carbon Dioxide 24 Anion Gap 15 BUN 22 H Creatinine 0.98 Estim Creat Clear Calc 103.0 Estimated GFR > 60 POC Glucose 184 H 157 H Random Glucose 215 H D Estimat Average Glucose Hemoglobin A1c % Lactic Acid Calcium 9.8 D Magnesium Total Bilirubin Direct Bilirubin AST ALT Alkaline Phosphatase Ammonia Lactate Dehydrogenase Total Creatine Kinase C-Reactive Protein B-Natriuretic Peptide NT-Pro-B Natriuret Pep Total Protein Albumin Vitamin B12 Folate Procalcitonin Urine Color Urine Appearance Urine pH Ur Specific [place] Urine Protein Urine Glucose (UA) Urine Ketones Urine Blood Urine Nitrite Ur Leukocyte Esterase Urine RBC Urine WBC Ur Squamous Epith Cells Urine Bacteria Hyaline Casts Granular Casts Urine Mucus Ethyl Alcohol COVID-19 (JUDITH) COVID-19 Clin Com Hep Bs Antigen Hep Bs Antibody Hep B Core Total Ab Hepatitis C Ab (EIA) 03/10/21 03/11/21 03/11/21 21:28 07:57 08:17 WBC RBC Hgb Hct MCV MCH MCHC RDW Plt Count MPV Immature Gran % (Auto) Neut % (Auto) Lymph % (Auto) [place] % (Auto) Eos % (Auto) Baso % (Auto) Lymph # (Auto) [place] # (Auto) Eos # (Auto) Baso # (Auto) Abs Immat Gran (auto) Absolute Neuts (auto) Absolute Nucleated RBC Nucleated RBC % (auto) D-Dimer Sodium 142 Potassium 3.1 L Chloride 106 Carbon Dioxide 27 Anion Gap 12 BUN 19 H Creatinine 0.85 Estim Creat Clear Calc 118.8 Estimated GFR > 60 POC Glucose 285 H 146 H Random Glucose 156 H Estimat Average Glucose Hemoglobin A1c % Lactic Acid Calcium 9.0 D Magnesium Total Bilirubin Direct Bilirubin AST ALT Alkaline Phosphatase Ammonia Lactate Dehydrogenase Total Creatine Kinase C-Reactive Protein B-Natriuretic Peptide NT-Pro-B Natriuret Pep Total Protein Albumin Vitamin B12 Folate Procalcitonin Urine Color Urine Appearance Urine pH Ur Specific [place] Urine Protein Urine Glucose (UA) Urine Ketones Urine Blood Urine Nitrite Ur Leukocyte Esterase Urine RBC Urine WBC Ur Squamous Epith Cells Urine Bacteria Hyaline Casts Granular Casts Urine Mucus Ethyl Alcohol COVID-19 (JUDITH) COVID-19 Clin Com Hep Bs Antigen Hep Bs Antibody Hep B Core Total Ab Hepatitis C Ab (EIA) 03/11/21 03/11/21 03/11/21 12:05 16:48 20:35 WBC RBC Hgb Hct MCV MCH MCHC RDW Plt Count MPV Immature Gran % (Auto) Neut % (Auto) Lymph % (Auto) [place] % (Auto) Eos % (Auto) Baso % (Auto) Lymph # (Auto) [place] # (Auto) Eos # (Auto) Baso # (Auto) Abs Immat Gran (auto) Absolute Neuts (auto) Absolute Nucleated RBC Nucleated RBC % (auto) D-Dimer Sodium Potassium Chloride Carbon Dioxide Anion Gap BUN Creatinine Estim Creat Clear Calc Estimated GFR POC Glucose 214 H 143 H 241 H Random Glucose Estimat Average Glucose Hemoglobin A1c % Lactic Acid Calcium Magnesium Total Bilirubin Direct Bilirubin AST ALT Alkaline Phosphatase Ammonia Lactate Dehydrogenase Total Creatine Kinase C-Reactive Protein B-Natriuretic Peptide NT-Pro-B Natriuret Pep Total Protein Albumin Vitamin B12 Folate Procalcitonin Urine Color Urine Appearance Urine pH Ur Specific [place] Urine Protein Urine Glucose (UA) Urine Ketones Urine Blood Urine Nitrite Ur Leukocyte Esterase Urine RBC Urine WBC Ur Squamous Epith Cells Urine Bacteria Hyaline Casts Granular Casts Urine Mucus Ethyl Alcohol COVID-19 (JUDITH) COVID-19 Clin Com Hep Bs Antigen Hep Bs Antibody Hep B Core Total Ab Hepatitis C Ab (EIA) 03/12/21 03/12/21 03/12/21 06:38 08:02 12:00 WBC RBC Hgb Hct MCV MCH MCHC RDW Plt Count MPV Immature Gran % (Auto) Neut % (Auto) Lymph % (Auto) [place] % (Auto) Eos % (Auto) Baso % (Auto) Lymph # (Auto) [place] # (Auto) Eos # (Auto) Baso # (Auto) Abs Immat Gran (auto) Absolute Neuts (auto) Absolute Nucleated RBC Nucleated RBC % (auto) D-Dimer Sodium 144 Potassium 3.4 Chloride 108 Carbon Dioxide 27 Anion Gap 12 BUN 16 Creatinine 0.86 Estim Creat Clear Calc 130.7 Estimated GFR > 60 POC Glucose 175 H 123 H Random Glucose 147 H Estimat Average Glucose Hemoglobin A1c % Lactic Acid Calcium 8.9 Magnesium Total Bilirubin 0.6 Direct Bilirubin AST 31 ALT 55 H Alkaline Phosphatase 84 Ammonia Lactate Dehydrogenase Total Creatine Kinase C-Reactive Protein B-Natriuretic Peptide NT-Pro-B Natriuret Pep Total Protein 5.6 L Albumin 3.8 Vitamin B12 Folate Procalcitonin Urine Color Urine Appearance Urine pH Ur Specific [place] Urine Protein Urine Glucose (UA) Urine Ketones Urine Blood Urine Nitrite Ur Leukocyte Esterase Urine RBC Urine WBC Ur Squamous Epith Cells Urine Bacteria Hyaline Casts Granular Casts Urine Mucus Ethyl Alcohol COVID-19 (JUDITH) COVID-19 Clin Com Hep Bs Antigen Hep Bs Antibody Hep B Core Total Ab Hepatitis C Ab (EIA) 03/12/21 03/12/21 03/13/21 17:25 19:57 09:17 WBC RBC Hgb Hct MCV MCH MCHC RDW Plt Count MPV Immature Gran % (Auto) Neut % (Auto) Lymph % (Auto) [place] % (Auto) Eos % (Auto) Baso % (Auto) Lymph # (Auto) [place] # (Auto) Eos # (Auto) Baso # (Auto) Abs Immat Gran (auto) Absolute Neuts (auto) Absolute Nucleated RBC Nucleated RBC % (auto) D-Dimer Sodium Potassium Chloride Carbon Dioxide Anion Gap BUN Creatinine Estim Creat Clear Calc Estimated GFR POC Glucose 181 H 191 H 130 H Random Glucose Estimat Average Glucose Hemoglobin A1c % Lactic Acid Calcium Magnesium Total Bilirubin Direct Bilirubin AST ALT Alkaline Phosphatase Ammonia Lactate Dehydrogenase Total Creatine Kinase C-Reactive Protein B-Natriuretic Peptide NT-Pro-B Natriuret Pep Total Protein Albumin Vitamin B12 Folate Procalcitonin Urine Color Urine Appearance Urine pH Ur Specific [place] Urine Protein Urine Glucose (UA) Urine Ketones Urine Blood Urine Nitrite Ur Leukocyte Esterase Urine RBC Urine WBC Ur Squamous Epith Cells Urine Bacteria Hyaline Casts Granular Casts Urine Mucus Ethyl Alcohol COVID-19 (JUDITH) COVID-19 Clin Com Hep Bs Antigen Hep Bs Antibody Hep B Core Total Ab Hepatitis C Ab (EIA) 03/13/21 03/13/21 03/13/21 12:29 16:31 21:12 WBC RBC Hgb Hct MCV MCH MCHC RDW Plt Count MPV Immature Gran % (Auto) Neut % (Auto) Lymph % (Auto) [place] % (Auto) Eos % (Auto) Baso % (Auto) Lymph # (Auto) [place] # (Auto) Eos # (Auto) Baso # (Auto) Abs Immat Gran (auto) Absolute Neuts (auto) Absolute Nucleated RBC Nucleated RBC % (auto) D-Dimer Sodium Potassium Chloride Carbon Dioxide Anion Gap BUN Creatinine Estim Creat Clear Calc Estimated GFR POC Glucose 277 H 265 H 130 H Random Glucose Estimat Average Glucose Hemoglobin A1c % Lactic Acid Calcium Magnesium Total Bilirubin Direct Bilirubin AST ALT Alkaline Phosphatase Ammonia Lactate Dehydrogenase Total Creatine Kinase C-Reactive Protein B-Natriuretic Peptide NT-Pro-B Natriuret Pep Total Protein Albumin Vitamin B12 Folate Procalcitonin Urine Color Urine Appearance Urine pH Ur Specific [place] Urine Protein Urine Glucose (UA) Urine Ketones Urine Blood Urine Nitrite Ur Leukocyte Esterase Urine RBC Urine WBC Ur Squamous Epith Cells Urine Bacteria Hyaline Casts Granular Casts Urine Mucus Ethyl Alcohol COVID-19 (JUDITH) COVID-19 Clin Com Hep Bs Antigen Hep Bs Antibody Hep B Core Total Ab Hepatitis C Ab (EIA) 03/14/21 03/14/21 03/15/21 08:52 21:35 08:33 WBC RBC Hgb Hct MCV MCH MCHC RDW Plt Count MPV Immature Gran % (Auto) Neut % (Auto) Lymph % (Auto) [place] % (Auto) Eos % (Auto) Baso % (Auto) Lymph # (Auto) [place] # (Auto) Eos # (Auto) Baso # (Auto) Abs Immat Gran (auto) Absolute Neuts (auto) Absolute Nucleated RBC Nucleated RBC % (auto) D-Dimer Sodium Potassium Chloride Carbon Dioxide Anion Gap BUN Creatinine Estim Creat Clear Calc Estimated GFR POC Glucose 163 H 140 H 170 H Random Glucose Estimat Average Glucose Hemoglobin A1c % Lactic Acid Calcium Magnesium Total Bilirubin Direct Bilirubin AST ALT Alkaline Phosphatase Ammonia Lactate Dehydrogenase Total Creatine Kinase C-Reactive Protein B-Natriuretic Peptide NT-Pro-B Natriuret Pep Total Protein Albumin Vitamin B12 Folate Procalcitonin Urine Color Urine Appearance Urine pH Ur Specific [place] Urine Protein Urine Glucose (UA) Urine Ketones Urine Blood Urine Nitrite Ur Leukocyte Esterase Urine RBC Urine WBC Ur Squamous Epith Cells Urine Bacteria Hyaline Casts Granular Casts Urine Mucus Ethyl Alcohol COVID-19 (JUDITH) COVID-19 Clin Com Hep Bs Antigen Hep Bs Antibody Hep B Core Total Ab Hepatitis C Ab (EIA) 03/15/21 03/15/21 03/16/21 17:26 20:20 07:07 WBC RBC Hgb Hct MCV MCH MCHC RDW Plt Count MPV Immature Gran % (Auto) Neut % (Auto) Lymph % (Auto) [place] % (Auto) Eos % (Auto) Baso % (Auto) Lymph # (Auto) [place] # (Auto) Eos # (Auto) Baso # (Auto) Abs Immat Gran (auto) Absolute Neuts (auto) Absolute Nucleated RBC Nucleated RBC % (auto) D-Dimer Sodium Potassium Chloride Carbon Dioxide Anion Gap BUN Creatinine Estim Creat Clear Calc Estimated GFR POC Glucose 130 H 227 H 162 H Random Glucose Estimat Average Glucose Hemoglobin A1c % Lactic Acid Calcium Magnesium Total Bilirubin Direct Bilirubin AST ALT Alkaline Phosphatase Ammonia Lactate Dehydrogenase Total Creatine Kinase C-Reactive Protein B-Natriuretic Peptide NT-Pro-B Natriuret Pep Total Protein Albumin Vitamin B12 Folate Procalcitonin Urine Color Urine Appearance Urine pH Ur Specific [place] Urine Protein Urine Glucose (UA) Urine Ketones Urine Blood Urine Nitrite Ur Leukocyte Esterase Urine RBC Urine WBC Ur Squamous Epith Cells Urine Bacteria Hyaline Casts Granular Casts Urine Mucus Ethyl Alcohol COVID-19 (JUDITH) COVID-19 Clin Com Hep Bs Antigen Hep Bs Antibody Hep B Core Total Ab Hepatitis C Ab (EIA) 03/16/21 03/16/21 03/16/21 12:23 16:42 21:18 WBC RBC Hgb Hct MCV MCH MCHC RDW Plt Count MPV Immature Gran % (Auto) Neut % (Auto) Lymph % (Auto) [place] % (Auto) Eos % (Auto) Baso % (Auto) Lymph # (Auto) [place] # (Auto) Eos # (Auto) Baso # (Auto) Abs Immat Gran (auto) Absolute Neuts (auto) Absolute Nucleated RBC Nucleated RBC % (auto) D-Dimer Sodium Potassium Chloride Carbon Dioxide Anion Gap BUN Creatinine Estim Creat Clear Calc Estimated GFR POC Glucose 145 H 171 H 179 H Random Glucose Estimat Average Glucose Hemoglobin A1c % Lactic Acid Calcium Magnesium Total Bilirubin Direct Bilirubin AST ALT Alkaline Phosphatase Ammonia Lactate Dehydrogenase Total Creatine Kinase C-Reactive Protein B-Natriuretic Peptide NT-Pro-B Natriuret Pep Total Protein Albumin Vitamin B12 Folate Procalcitonin Urine Color Urine Appearance Urine pH Ur Specific [place] Urine Protein Urine Glucose (UA) Urine Ketones Urine Blood Urine Nitrite Ur Leukocyte Esterase Urine RBC Urine WBC Ur Squamous Epith Cells Urine Bacteria Hyaline Casts Granular Casts Urine Mucus Ethyl Alcohol COVID-19 (JUDITH) COVID-19 Clin Com Hep Bs Antigen Hep Bs Antibody Hep B Core Total Ab Hepatitis C Ab (EIA) Narrative Narrative: Patient very sleepy. Unable to fully assess Airway Mallampati Class: III TM Dist: >3cm Loose/Missing/Broken Teeth: Yes (Broken, chipped top front) Heart: RRR Lungs: CTAB Assessment and Plan Assessment Anesthesia Assessment: Anesthesia Plan Discussed and Chart Reviewed Final Anesthetic Review Family History of Problems with Anesthesia: No History of Problems with Anesthesia: No NPO: Yes ASA Class: III Final Preanesthetic Review: No Changes in Pt Med Stat, Meds/Allgs Chart Reviewed, Consent Obtained/Reviewed and Anes Risks/Benef Reviewed Patient Risk: Intermediate Procedure Risk: Intermediate Assessment/Block/Sedation in SS: Assess/Block/Sedation- Anesthetic Plan Anesthetic Plan: GA Disposition: Standard PACU and Inp. Admit - Standard Bed
[2021-03-17 06:58] LABS: Glucose, Whole Blood 138 mg/dL (60-115)
--- NOTE | 2021-03-17 07:30 | MHC.SHP ---
Pre-Procedural Eval Section A Date of Service: 03/17/21 The patient is an INPATIENT: Yes Changes since office visit: Yes Cold of Flu in the past 2 weeks, Yes New Medical Problems and Yes Changes in Medication; No Patient answered all questions The History & Physical has been completed within 30 days and I have reviewed it.: Yes Section B Chief Complaint: acute psychosis, pre ECT assessment Allergies: Allergies Allergy/AdvReac Type Severity Reaction Status Date / Time No Known Allergies Allergy Unverified 03/05/20 17:38 [No Known Allergies*] all antipsychotics AdvReac Severe see below Uncoded 03/04/21 09:40 Plan I have reviewed the history and physical and performed a pertinent physical examination on my patient. No changes have occurred unless specified.
--- NOTE | 2021-03-17 07:31 | P.CONAN_ITS ---
[facility] Active Problems Active Problems: All Active Problems (Updated 03/12/21 @ 15:56 by Chang Mason DO) Pre-op evaluation (Acute) Hypernatremia (Acute) Hypokalemia, inadequate intake (Acute) Preop cardiovascular exam (Acute) Rhabdomyolysis (Acute) Bipolar I disorder with catatonia (Acute) Catatonic excitement (Acute) Bipolar disorder (Acute) Type 2 diabetes mellitus (Chronic) Past Medical History Medical History Bipolar 1 disorder Depression Diabetes Family History Family history of problems with anesthesia: No Surgical History History of Problems with Anesthesia: No Social History Social History Household Members: Spouse Housing: Unknown / Unable to assess Do you presently have visiting nurse or other home services: No Unable to assess alcohol history related to: Unable to respond and Unknown Patient Tobacco Use Status: Tobacco use Unknown Smoked in Last 30 Days: No Use of substances other than those prescribed or required for medical reasons: Unable to respond Currently Displaying Signs/Symptoms of Drug Intoxication Withdrawal: No Are you DNR?: No Advance Directives: No Advance Directives Information Provided: No Advance Directives on File: No Do you have thoughts of harming others: None Do you have a plan to hurt others: No Plan Recently lost weight without trying: No Nutrition Risks: Difficulty chewing and Difficulty swallowing Poor oral hygiene: Yes service: No Sexual orientation: Straight/Heterosexual Meds Allergies Allergy/AdvReac Type Severity Reaction Status Date / Time No Known Allergies Allergy Unverified 03/05/20 17:38 [No Known Allergies*] all antipsychotics AdvReac Severe see below Uncoded 03/04/21 09:40 Active Medications: Current Medications Acetaminophen (Acetaminophen 325 Mg Tablet) 650 mg PO Q6H PRN PRN Reason: Headache/Pain Mild Scale (1-3) Acetaminophen (Acetaminophen 325 Mg Tablet) 650 mg PO ONCE PRN PRN Reason: Pain, Mild (Pain Scale 1-3) Acetaminophen (Acetaminophen 325 Mg Tablet) 650 mg PO ONCE PRN PRN Reason: Pain, Mild (Pain Scale 1-3) Al Hydroxide/Mg Hydroxide (Magnesium Hydrox/Alum Hydrox 30 Ml Oral.Susp) 30 ml PO Q6H PRN PRN Reason: Heartburn/Nausea Atorvastatin Calcium (Atorvastatin Calcium 20 Mg Tablet) 20 mg PO BEDTIME [facility] Last Admin: 03/16/21 22:05 Dose: 20 mg Documented by: Enoxaparin Sodium (Enoxaparin Sodium 40 Mg/0.4 Ml Syringe) 40 mg SUBCUT Q24H [facility] Last Admin: 03/16/21 15:03 Dose: 40 mg Documented by: Glucose (Glucose Gel 15 Gm Gel..Gram.) 15 gm PO Q15M PRN; Protocol PRN Reason: per Hypoglycemia Standing Ord. Lactated Ringer's (Lr) 1,000 mls @ 100 mls/hr IVCONT .Q10H [facility] Insulin Human Lispro (Insulin Lispro 100 Unit/Ml 3 Ml Vial) 0 unit SUBCUT QIDACHS [facility]; Protocol Last Admin: 03/16/21 22:05 Dose: 2 unit Documented by: Labetalol HCl (Labetalol Hcl 100 Mg/20 Ml Vial) 10 mg IVPUSH Q4H PRN PRN Reason: bp>180/90 Lorazepam (Lorazepam 1 Mg Tablet) 2 mg PO TID [facility] Last Admin: 03/16/21 22:05 Dose: 2 mg Documented by: Magnesium Hydroxide (Milk Of Magnesia 30 Ml Oral.Susp) 30 ml PO DAILY PRN PRN Reason: Constipation Multivitamins/Vitamin C (Multivitamin Tablet) 1 tab PO DAILY [facility] Last Admin: 03/16/21 08:44 Dose: 1 tab Documented by: Nicotine Polacrilex (Nicotine Polacrilex 2 Mg Gum) 4 mg BUCCAL Q2H PRN PRN Reason: Nicotine Cravings Last Admin: 03/09/21 09:46 Dose: 4 mg Documented by: Ondansetron HCl (Ondansetron Hcl 4 Mg/2 Ml Vial) 4 mg IVPUSH ONCE PRN PRN Reason: Nausea and Vomiting Ondansetron HCl (Ondansetron Hcl 4 Mg/2 Ml Vial) 4 mg IVPUSH ONCE PRN PRN Reason: Nausea and Vomiting Oxycodone HCl (Oxycodone Hcl Immed Release 5 Mg Tablet) 10 mg PO ONCE PRN PRN Reason: Pain, Severe (Pain Scale 7-10) Oxycodone HCl (Oxycodone Hcl Immed Release 5 Mg Tablet) 5 mg PO ONCE PRN PRN Reason: Pain, Severe (Pain Scale 7-10) Pharmacy Consult (Consult Rx Perform Med Rec) 1 each MISCELLANE ONCE PRN PRN Reason: Consult order Home Medications Medication Instructions Recorded Confirmed Last Taken Type atorvastatin 20 mg tablet 1 tab PO BEDTIME 03/01/21 03/01/21 02/28/21 History empagliflozin 10 mg tablet 1 tab PO QAM 03/01/21 03/01/21 02/28/21 History (Jardiance) glipizide 10 mg tablet, extended 1 tab PO DAILY 03/01/21 03/01/21 02/28/21 History release 24 hr lorazepam 1 mg tablet 1 mg PO TID 03/01/21 03/01/21 03/01/21 History metformin 1,000 mg tablet 1 tab PO BID 03/01/21 03/01/21 02/28/21 History multivitamin 1 tab PO DAILY 03/01/21 03/01/21 02/28/21 History olanzapine 10 mg tablet 10 mg PO BEDTIME 03/01/21 03/01/21 Unknown History sertraline 100 mg tablet 2 tab PO QAM 03/01/21 03/01/21 03/01/21 History Exam Exam Date and Time: March 17, 2021 0731 Height,Weight and Vital Signs: Height 6 ft 1 in Weight 102.058 kg Last Vital Signs Temp 97.4 F 03/17/21 06:59 Pulse 80 03/17/21 06:59 Resp 17 03/17/21 06:59 BP 117/73 03/17/21 06:59 Pulse Ox 95 03/17/21 06:59 Pertinent Lab Results Pertinent Lab Results: Laboratory Tests 03/01/21 03/01/21 03/01/21 14:37 14:49 14:49 WBC 11.7 H RBC 5.27 Hgb 14.5 Hct 44.2 MCV 83.9 MCH 27.5 MCHC 32.8 RDW 13.9 Plt Count 277 MPV 11.0 Immature Gran % (Auto) 0.6 H Neut % (Auto) 78.6 H Lymph % (Auto) 13.9 L [place] % (Auto) 6.6 Eos % (Auto) 0.0 Baso % (Auto) 0.3 Lymph # (Auto) 1.6 [place] # (Auto) 0.8 Eos # (Auto) 0.0 Baso # (Auto) 0.0 Abs Immat Gran (auto) 0.07 H Absolute Neuts (auto) 9.2 H Absolute Nucleated RBC 0.000 Nucleated RBC % (auto) 0.0 D-Dimer Sodium 143 Potassium 4.0 Chloride 107 Carbon Dioxide 21 L Anion Gap 19 BUN 30 H Creatinine 1.16 Estim Creat Clear Calc 87.0 Estimated GFR > 60 POC Glucose Random Glucose 141 H Estimat Average Glucose Hemoglobin A1c % Lactic Acid Calcium 10.6 H Magnesium Total Bilirubin 0.5 Direct Bilirubin 0.2 AST 22 ALT 46 H Alkaline Phosphatase 105 Ammonia Lactate Dehydrogenase Total Creatine Kinase C-Reactive Protein B-Natriuretic Peptide NT-Pro-B Natriuret Pep Total Protein 8.2 H Albumin 5.5 H Vitamin B12 Folate Procalcitonin Urine Color Urine Appearance Urine pH Ur Specific [place] Urine Protein Urine Glucose (UA) Urine Ketones Urine Blood Urine Nitrite Ur Leukocyte Esterase Urine RBC Urine WBC Ur Squamous Epith Cells Urine Bacteria Hyaline Casts Granular Casts Urine Mucus Ethyl Alcohol COVID-19 (JUDITH) Negative COVID-19 Clin Com See Note Hep Bs Antigen Hep Bs Antibody Hep B Core Total Ab Hepatitis C Ab (EIA) 03/01/21 03/02/21 03/02/21 14:49 00:59 01:01 WBC RBC Hgb Hct MCV MCH MCHC RDW Plt Count MPV Immature Gran % (Auto) Neut % (Auto) Lymph % (Auto) [place] % (Auto) Eos % (Auto) Baso % (Auto) Lymph # (Auto) [place] # (Auto) Eos # (Auto) Baso # (Auto) Abs Immat Gran (auto) Absolute Neuts (auto) Absolute Nucleated RBC Nucleated RBC % (auto) D-Dimer Sodium Potassium Chloride Carbon Dioxide Anion Gap BUN Creatinine Estim Creat Clear Calc Estimated GFR POC Glucose 155 H 161 H Random Glucose Estimat Average Glucose Hemoglobin A1c % Lactic Acid Calcium Magnesium Total Bilirubin Direct Bilirubin AST ALT Alkaline Phosphatase Ammonia Lactate Dehydrogenase Total Creatine Kinase C-Reactive Protein B-Natriuretic Peptide NT-Pro-B Natriuret Pep Total Protein Albumin Vitamin B12 Folate Procalcitonin Urine Color Urine Appearance Urine pH Ur Specific [place] Urine Protein Urine Glucose (UA) Urine Ketones Urine Blood Urine Nitrite Ur Leukocyte Esterase Urine RBC Urine WBC Ur Squamous Epith Cells Urine Bacteria Hyaline Casts Granular Casts Urine Mucus Ethyl Alcohol < 10 COVID-19 (JUDITH) COVID-19 Clin Com Hep Bs Antigen Hep Bs Antibody Hep B Core Total Ab Hepatitis C Ab (EIA) 09/14/21 09/15/21 09/15/21 09:30 12:36 12:36 WBC 11.8 H RBC 4.76 Hgb 13.1 L Hct 40.5 L MCV 85.1 MCH 27.5 MCHC 32.3 RDW 14.0 Plt Count 265 MPV 10.6 Immature Gran % (Auto) 0.5 H Neut % (Auto) 74.8 H Lymph % (Auto) 16.6 L [place] % (Auto) 7.8 Eos % (Auto) 0.0 Baso % (Auto) 0.3 Lymph # (Auto) 2.0 [place] # (Auto) 0.9 Eos # (Auto) 0.0 Baso # (Auto) 0.0 Abs Immat Gran (auto) 0.06 H Absolute Neuts (auto) 8.8 H Absolute Nucleated RBC 0.000 Nucleated RBC % (auto) 0.0 D-Dimer Sodium 148 H Potassium 3.5 Chloride 114 H Carbon Dioxide 20 L Anion Gap 18 BUN 33 H Creatinine 1.07 Estim Creat Clear Calc 94.3 Estimated GFR > 60 POC Glucose 214 H Random Glucose Estimat Average Glucose Hemoglobin A1c % Lactic Acid Calcium Magnesium Total Bilirubin Direct Bilirubin AST ALT Alkaline Phosphatase Ammonia Lactate Dehydrogenase Total Creatine Kinase C-Reactive Protein B-Natriuretic Peptide NT-Pro-B Natriuret Pep Total Protein Albumin Vitamin B12 Folate Procalcitonin Urine Color Urine Appearance Urine pH Ur Specific [place] Urine Protein Urine Glucose (UA) Urine Ketones Urine Blood Urine Nitrite Ur Leukocyte Esterase Urine RBC Urine WBC Ur Squamous Epith Cells Urine Bacteria Hyaline Casts Granular Casts Urine Mucus Ethyl Alcohol COVID-19 (JUDITH) COVID-19 Clin Com Hep Bs Antigen Hep Bs Antibody Hep B Core Total Ab Hepatitis C Ab (EIA) 03/03/21 03/03/21 03/03/21 12:36 12:36 12:36 WBC RBC Hgb Hct MCV MCH MCHC RDW Plt Count MPV Immature Gran % (Auto) Neut % (Auto) Lymph % (Auto) [place] % (Auto) Eos % (Auto) Baso % (Auto) Lymph # (Auto) [place] # (Auto) Eos # (Auto) Baso # (Auto) Abs Immat Gran (auto) Absolute Neuts (auto) Absolute Nucleated RBC Nucleated RBC % (auto) D-Dimer Sodium Potassium Chloride Carbon Dioxide Anion Gap BUN Creatinine Estim Creat Clear Calc Estimated GFR POC Glucose Random Glucose Estimat Average Glucose Hemoglobin A1c % Lactic Acid Calcium 10.3 H Magnesium Total Bilirubin 0.8 Direct Bilirubin 0.3 AST 47 H D ALT 37 Alkaline Phosphatase 91 Ammonia 29 Lactate Dehydrogenase Total Creatine Kinase C-Reactive Protein B-Natriuretic Peptide NT-Pro-B Natriuret Pep Total Protein 7.1 Albumin 5.0 Vitamin B12 Folate Procalcitonin Urine Color Urine Appearance Urine pH Ur Specific [place] Urine Protein Urine Glucose (UA) Urine Ketones Urine Blood Urine Nitrite Ur Leukocyte Esterase Urine RBC Urine WBC Ur Squamous Epith Cells Urine Bacteria Hyaline Casts Granular Casts Urine Mucus Ethyl Alcohol COVID-19 (JUDITH) COVID-19 Clin Com Hep Bs Antigen Hep Bs Antibody Hep B Core Total Ab Hepatitis C Ab (EIA) 03/03/21 03/04/21 03/04/21 20:18 07:54 07:54 WBC RBC Hgb Hct MCV MCH MCHC RDW Plt Count MPV Immature Gran % (Auto) Neut % (Auto) Lymph % (Auto) [place] % (Auto) Eos % (Auto) Baso % (Auto) Lymph # (Auto) [place] # (Auto) Eos # (Auto) Baso # (Auto) Abs Immat Gran (auto) Absolute Neuts (auto) Absolute Nucleated RBC Nucleated RBC % (auto) D-Dimer Sodium 146 H Potassium 4.0 Chloride 111 H Carbon Dioxide 18 L Anion Gap 21 H BUN 41 H Creatinine 1.35 Estim Creat Clear Calc 74.8 Estimated GFR 56 POC Glucose 147 H Random Glucose 183 H Estimat Average Glucose 146 Hemoglobin A1c % 6.7 Lactic Acid Calcium 10.8 H Magnesium Total Bilirubin Direct Bilirubin AST ALT Alkaline Phosphatase Ammonia Lactate Dehydrogenase Total Creatine Kinase C-Reactive Protein B-Natriuretic Peptide NT-Pro-B Natriuret Pep Total Protein Albumin Vitamin B12 Folate Procalcitonin Urine Color Urine Appearance Urine pH Ur Specific [place] Urine Protein Urine Glucose (UA) Urine Ketones Urine Blood Urine Nitrite Ur Leukocyte Esterase Urine RBC Urine WBC Ur Squamous Epith Cells Urine Bacteria Hyaline Casts Granular Casts Urine Mucus Ethyl Alcohol COVID-19 (JUDITH) COVID-19 Clin Com Hep Bs Antigen Hep Bs Antibody Hep B Core Total Ab Hepatitis C Ab (EIA) 03/04/21 03/04/21 03/04/21 08:05 12:21 17:08 WBC RBC Hgb Hct MCV MCH MCHC RDW Plt Count MPV Immature Gran % (Auto) Neut % (Auto) Lymph % (Auto) [place] % (Auto) Eos % (Auto) Baso % (Auto) Lymph # (Auto) [place] # (Auto) Eos # (Auto) Baso # (Auto) Abs Immat Gran (auto) Absolute Neuts (auto) Absolute Nucleated RBC Nucleated RBC % (auto) D-Dimer Sodium Potassium Chloride Carbon Dioxide Anion Gap BUN Creatinine Estim Creat Clear Calc Estimated GFR POC Glucose 186 H 191 H 174 H Random Glucose Estimat Average Glucose Hemoglobin A1c % Lactic Acid Calcium Magnesium Total Bilirubin Direct Bilirubin AST ALT Alkaline Phosphatase Ammonia Lactate Dehydrogenase Total Creatine Kinase C-Reactive Protein B-Natriuretic Peptide NT-Pro-B Natriuret Pep Total Protein Albumin Vitamin B12 Folate Procalcitonin Urine Color Urine Appearance Urine pH Ur Specific [place] Urine Protein Urine Glucose (UA) Urine Ketones Urine Blood Urine Nitrite Ur Leukocyte Esterase Urine RBC Urine WBC Ur Squamous Epith Cells Urine Bacteria Hyaline Casts Granular Casts Urine Mucus Ethyl Alcohol COVID-19 (JUDITH) COVID-19 Clin Com Hep Bs Antigen Hep Bs Antibody Hep B Core Total Ab Hepatitis C Ab (EIA) 03/04/21 03/05/21 03/05/21 21:42 08:28 09:32 WBC 8.9 RBC 4.83 Hgb 13.2 L Hct 40.6 L MCV 84.1 MCH 27.3 MCHC 32.5 RDW 13.9 Plt Count 252 MPV 11.5 Immature Gran % (Auto) 0.9 H Neut % (Auto) 73.6 H Lymph % (Auto) 18.2 L [place] % (Auto) 7.1 Eos % (Auto) 0.0 Baso % (Auto) 0.2 Lymph # (Auto) 1.6 [place] # (Auto) 0.6 Eos # (Auto) 0.0 Baso # (Auto) 0.0 Abs Immat Gran (auto) 0.08 H Absolute Neuts (auto) 6.5 Absolute Nucleated RBC 0.000 Nucleated RBC % (auto) 0.0 D-Dimer Sodium Potassium Chloride Carbon Dioxide Anion Gap BUN Creatinine Estim Creat Clear Calc Estimated GFR POC Glucose 212 H 179 H Random Glucose Estimat Average Glucose Hemoglobin A1c % Lactic Acid Calcium Magnesium Total Bilirubin Direct Bilirubin AST ALT Alkaline Phosphatase Ammonia Lactate Dehydrogenase Total Creatine Kinase C-Reactive Protein B-Natriuretic Peptide NT-Pro-B Natriuret Pep Total Protein Albumin Vitamin B12 Folate Procalcitonin Urine Color Urine Appearance Urine pH Ur Specific [place] Urine Protein Urine Glucose (UA) Urine Ketones Urine Blood Urine Nitrite Ur Leukocyte Esterase Urine RBC Urine WBC Ur Squamous Epith Cells Urine Bacteria Hyaline Casts Granular Casts Urine Mucus Ethyl Alcohol COVID-19 (JUDITH) COVID-19 Clin Com Hep Bs Antigen Hep Bs Antibody Hep B Core Total Ab Hepatitis C Ab (EIA) 03/05/21 03/05/21 03/06/21 09:32 17:32 06:42 WBC RBC Hgb Hct MCV MCH MCHC RDW Plt Count MPV Immature Gran % (Auto) Neut % (Auto) Lymph % (Auto) [place] % (Auto) Eos % (Auto) Baso % (Auto) Lymph # (Auto) [place] # (Auto) Eos # (Auto) Baso # (Auto) Abs Immat Gran (auto) Absolute Neuts (auto) Absolute Nucleated RBC Nucleated RBC % (auto) D-Dimer Sodium 149 H Potassium 3.3 Chloride 116 H Carbon Dioxide 24 Anion Gap 12 BUN 36 H Creatinine 1.09 Estim Creat Clear Calc 92.6 Estimated GFR > 60 POC Glucose 241 H 172 H Random Glucose Estimat Average Glucose Hemoglobin A1c % Lactic Acid Calcium Magnesium Total Bilirubin 0.7 Direct Bilirubin 0.3 AST 72 H ALT 51 H Alkaline Phosphatase 88 Ammonia Lactate Dehydrogenase 235 Total Creatine Kinase 1870 H C-Reactive Protein B-Natriuretic Peptide NT-Pro-B Natriuret Pep Total Protein 6.6 Albumin 4.6 Vitamin B12 Folate Procalcitonin Urine Color Urine Appearance Urine pH Ur Specific [place] Urine Protein Urine Glucose (UA) Urine Ketones Urine Blood Urine Nitrite Ur Leukocyte Esterase Urine RBC Urine WBC Ur Squamous Epith Cells Urine Bacteria Hyaline Casts Granular Casts Urine Mucus Ethyl Alcohol COVID-19 (JUDITH) COVID-19 Clin Com Hep Bs Antigen Hep Bs Antibody Hep B Core Total Ab Hepatitis C Ab (EIA) 03/06/21 03/06/21 03/06/21 09:22 09:23 09:23 WBC RBC Hgb Hct MCV MCH MCHC RDW Plt Count MPV Immature Gran % (Auto) Neut % (Auto) Lymph % (Auto) [place] % (Auto) Eos % (Auto) Baso % (Auto) Lymph # (Auto) [place] # (Auto) Eos # (Auto) Baso # (Auto) Abs Immat Gran (auto) Absolute Neuts (auto) Absolute Nucleated RBC Nucleated RBC % (auto) D-Dimer Sodium 150 H Potassium 3.3 Chloride 117 H Carbon Dioxide 20 L Anion Gap 16 BUN 31 H Creatinine 1.22 Estim Creat Clear Calc 82.7 Estimated GFR > 60 POC Glucose Random Glucose 205 H Estimat Average Glucose Hemoglobin A1c % Lactic Acid Calcium 9.4 D Magnesium Total Bilirubin 1.0 Direct Bilirubin 0.4 AST 73 H ALT 65 H Alkaline Phosphatase 91 Ammonia Lactate Dehydrogenase Total Creatine Kinase 1633 H C-Reactive Protein B-Natriuretic Peptide NT-Pro-B Natriuret Pep Total Protein 6.8 Albumin 4.6 Vitamin B12 1285 H Folate 19.3 Procalcitonin Urine Color Urine Appearance Urine pH Ur Specific [place] Urine Protein Urine Glucose (UA) Urine Ketones Urine Blood Urine Nitrite Ur Leukocyte Esterase Urine RBC Urine WBC Ur Squamous Epith Cells Urine Bacteria Hyaline Casts Granular Casts Urine Mucus Ethyl Alcohol COVID-19 (JUDITH) COVID-19 Clin Com Hep Bs Antigen Negative Hep Bs Antibody REACTIVE Hep B Core Total Ab Nonreactive Hepatitis C Ab (EIA) Nonreactive 03/06/21 03/06/21 03/06/21 12:26 16:56 21:37 WBC RBC Hgb Hct MCV MCH MCHC RDW Plt Count MPV Immature Gran % (Auto) Neut % (Auto) Lymph % (Auto) [place] % (Auto) Eos % (Auto) Baso % (Auto) Lymph # (Auto) [place] # (Auto) Eos # (Auto) Baso # (Auto) Abs Immat Gran (auto) Absolute Neuts (auto) Absolute Nucleated RBC Nucleated RBC % (auto) D-Dimer Sodium Potassium Chloride Carbon Dioxide Anion Gap BUN Creatinine Estim Creat Clear Calc Estimated GFR POC Glucose 203 H 217 H 189 H Random Glucose Estimat Average Glucose Hemoglobin A1c % Lactic Acid Calcium Magnesium Total Bilirubin Direct Bilirubin AST ALT Alkaline Phosphatase Ammonia Lactate Dehydrogenase Total Creatine Kinase C-Reactive Protein B-Natriuretic Peptide NT-Pro-B Natriuret Pep Total Protein Albumin Vitamin B12 Folate Procalcitonin Urine Color Urine Appearance Urine pH Ur Specific [place] Urine Protein Urine Glucose (UA) Urine Ketones Urine Blood Urine Nitrite Ur Leukocyte Esterase Urine RBC Urine WBC Ur Squamous Epith Cells Urine Bacteria Hyaline Casts Granular Casts Urine Mucus Ethyl Alcohol COVID-19 (JUDITH) COVID-19 Clin Com Hep Bs Antigen Hep Bs Antibody Hep B Core Total Ab Hepatitis C Ab (EIA) 03/07/21 03/07/21 03/07/21 06:36 08:03 08:23 WBC RBC Hgb Hct MCV MCH MCHC RDW Plt Count MPV Immature Gran % (Auto) Neut % (Auto) Lymph % (Auto) [place] % (Auto) Eos % (Auto) Baso % (Auto) Lymph # (Auto) [place] # (Auto) Eos # (Auto) Baso # (Auto) Abs Immat Gran (auto) Absolute Neuts (auto) Absolute Nucleated RBC Nucleated RBC % (auto) D-Dimer Sodium 147 H Potassium 3.0 L Chloride 113 H Carbon Dioxide 25 Anion Gap 12 BUN 24 H Creatinine 0.86 Estim Creat Clear Calc 117.4 Estimated GFR > 60 POC Glucose 186 H 175 H Random Glucose 200 H Estimat Average Glucose Hemoglobin A1c % Lactic Acid Calcium 8.7 D Magnesium Total Bilirubin Direct Bilirubin AST ALT Alkaline Phosphatase Ammonia Lactate Dehydrogenase Total Creatine Kinase 972 H D C-Reactive Protein B-Natriuretic Peptide NT-Pro-B Natriuret Pep Total Protein Albumin Vitamin B12 Folate Procalcitonin Urine Color Urine Appearance Urine pH Ur Specific [place] Urine Protein Urine Glucose (UA) Urine Ketones Urine Blood Urine Nitrite Ur Leukocyte Esterase Urine RBC Urine WBC Ur Squamous Epith Cells Urine Bacteria Hyaline Casts Granular Casts Urine Mucus Ethyl Alcohol COVID-19 (JUDITH) COVID-19 Clin Com Hep Bs Antigen Hep Bs Antibody Hep B Core Total Ab Hepatitis C Ab (EIA) 03/07/21 03/07/21 03/07/21 13:13 16:35 21:22 WBC RBC Hgb Hct MCV MCH MCHC RDW Plt Count MPV Immature Gran % (Auto) Neut % (Auto) Lymph % (Auto) [place] % (Auto) Eos % (Auto) Baso % (Auto) Lymph # (Auto) [place] # (Auto) Eos # (Auto) Baso # (Auto) Abs Immat Gran (auto) Absolute Neuts (auto) Absolute Nucleated RBC Nucleated RBC % (auto) D-Dimer Sodium Potassium Chloride Carbon Dioxide Anion Gap BUN Creatinine Estim Creat Clear Calc Estimated GFR POC Glucose 165 H 190 H Random Glucose Estimat Average Glucose Hemoglobin A1c % Lactic Acid 0.8 Calcium Magnesium Total Bilirubin Direct Bilirubin AST ALT Alkaline Phosphatase Ammonia Lactate Dehydrogenase Total Creatine Kinase C-Reactive Protein B-Natriuretic Peptide NT-Pro-B Natriuret Pep Total Protein Albumin Vitamin B12 Folate Procalcitonin Urine Color Urine Appearance Urine pH Ur Specific [place] Urine Protein Urine Glucose (UA) Urine Ketones Urine Blood Urine Nitrite Ur Leukocyte Esterase Urine RBC Urine WBC Ur Squamous Epith Cells Urine Bacteria Hyaline Casts Granular Casts Urine Mucus Ethyl Alcohol COVID-19 (JUDITH) COVID-19 Clin Com Hep Bs Antigen Hep Bs Antibody Hep B Core Total Ab Hepatitis C Ab (EIA) 03/07/21 03/07/21 03/07/21 21:22 21:23 21:23 WBC 8.2 RBC 4.37 L Hgb 12.1 L Hct 36.1 L MCV 82.6 MCH 27.7 MCHC 33.5 RDW 13.3 Plt Count 189 MPV 11.2 Immature Gran % (Auto) 0.6 H Neut % (Auto) 65.9 Lymph % (Auto) 25.1 [place] % (Auto) 7.5 Eos % (Auto) 0.7 Baso % (Auto) 0.2 Lymph # (Auto) 2.1 [place] # (Auto) 0.6 Eos # (Auto) 0.1 Baso # (Auto) 0.0 Abs Immat Gran (auto) 0.05 H Absolute Neuts (auto) 5.4 Absolute Nucleated RBC 0.000 Nucleated RBC % (auto) 0.0 D-Dimer 337 Sodium Potassium Chloride Carbon Dioxide Anion Gap BUN Creatinine Estim Creat Clear Calc Estimated GFR POC Glucose Random Glucose Estimat Average Glucose Hemoglobin A1c % Lactic Acid Calcium Magnesium Total Bilirubin Direct Bilirubin AST ALT Alkaline Phosphatase Ammonia Lactate Dehydrogenase Total Creatine Kinase C-Reactive Protein B-Natriuretic Peptide NT-Pro-B Natriuret Pep Total Protein Albumin Vitamin B12 Folate Procalcitonin Urine Color YELLOW Urine Appearance CLEAR Urine pH 6.0 Ur Specific [place] >= 1.030 H Urine Protein TRACE Urine Glucose (UA) >=1000 H Urine Ketones NEG Urine Blood NEG Urine Nitrite NEG Ur Leukocyte Esterase NEG Urine RBC 1-4 Urine WBC 1-4 Ur Squamous Epith Cells 1+ Urine Bacteria 1+ Hyaline Casts 0-2 Granular Casts 0-2 Urine Mucus 2+ Ethyl Alcohol COVID-19 (JUDITH) COVID-19 Clin Com Hep Bs Antigen Hep Bs Antibody Hep B Core Total Ab Hepatitis C Ab (EIA) 03/07/21 03/07/21 03/07/21 21:23 21:23 21:23 WBC RBC Hgb Hct MCV MCH MCHC RDW Plt Count MPV Immature Gran % (Auto) Neut % (Auto) Lymph % (Auto) [place] % (Auto) Eos % (Auto) Baso % (Auto) Lymph # (Auto) [place] # (Auto) Eos # (Auto) Baso # (Auto) Abs Immat Gran (auto) Absolute Neuts (auto) Absolute Nucleated RBC Nucleated RBC % (auto) D-Dimer Sodium 146 H Potassium 2.9 L Chloride 111 H Carbon Dioxide 25 Anion Gap 13 BUN 21 H Creatinine 0.85 Estim Creat Clear Calc 118.8 Estimated GFR > 60 POC Glucose Random Glucose 124 H D Estimat Average Glucose Hemoglobin A1c % Lactic Acid Calcium 8.7 Magnesium Total Bilirubin 0.6 Direct Bilirubin AST 50 H ALT 56 H Alkaline Phosphatase 79 Ammonia Lactate Dehydrogenase Total Creatine Kinase C-Reactive Protein B-Natriuretic Peptide 86 NT-Pro-B Natriuret Pep Cancelled Total Protein 5.5 L Albumin 3.8 Vitamin B12 Folate Procalcitonin Urine Color Urine Appearance Urine pH Ur Specific [place] Urine Protein Urine Glucose (UA) Urine Ketones Urine Blood Urine Nitrite Ur Leukocyte Esterase Urine RBC Urine WBC Ur Squamous Epith Cells Urine Bacteria Hyaline Casts Granular Casts Urine Mucus Ethyl Alcohol COVID-19 (JUDITH) COVID-19 Clin Com Hep Bs Antigen Hep Bs Antibody Hep B Core Total Ab Hepatitis C Ab (EIA) 03/07/21 03/08/21 03/08/21 21:43 06:32 08:19 WBC RBC Hgb Hct MCV MCH MCHC RDW Plt Count MPV Immature Gran % (Auto) Neut % (Auto) Lymph % (Auto) [place] % (Auto) Eos % (Auto) Baso % (Auto) Lymph # (Auto) [place] # (Auto) Eos # (Auto) Baso # (Auto) Abs Immat Gran (auto) Absolute Neuts (auto) Absolute Nucleated RBC Nucleated RBC % (auto) D-Dimer Sodium 143 Potassium 2.9 L Chloride 108 Carbon Dioxide 26 Anion Gap 12 BUN 17 H Creatinine 0.82 Estim Creat Clear Calc 123.1 Estimated GFR > 60 POC Glucose 127 H 144 H Random Glucose 173 H D Estimat Average Glucose Hemoglobin A1c % Lactic Acid Calcium 8.9 Magnesium 2.0 Total Bilirubin Direct Bilirubin AST ALT Alkaline Phosphatase Ammonia Lactate Dehydrogenase Total Creatine Kinase 584 H D C-Reactive Protein 1.08 H B-Natriuretic Peptide NT-Pro-B Natriuret Pep Total Protein Albumin Vitamin B12 Folate Procalcitonin Urine Color Urine Appearance Urine pH Ur Specific [place] Urine Protein Urine Glucose (UA) Urine Ketones Urine Blood Urine Nitrite Ur Leukocyte Esterase Urine RBC Urine WBC Ur Squamous Epith Cells Urine Bacteria Hyaline Casts Granular Casts Urine Mucus Ethyl Alcohol COVID-19 (JUDITH) COVID-19 Clin Com Hep Bs Antigen Hep Bs Antibody Hep B Core Total Ab Hepatitis C Ab (EIA) 03/08/21 03/08/21 03/08/21 08:19 12:50 17:26 WBC RBC Hgb Hct MCV MCH MCHC RDW Plt Count MPV Immature Gran % (Auto) Neut % (Auto) Lymph % (Auto) [place] % (Auto) Eos % (Auto) Baso % (Auto) Lymph # (Auto) [place] # (Auto) Eos # (Auto) Baso # (Auto) Abs Immat Gran (auto) Absolute Neuts (auto) Absolute Nucleated RBC Nucleated RBC % (auto) D-Dimer Sodium Potassium Chloride Carbon Dioxide Anion Gap BUN Creatinine Estim Creat Clear Calc Estimated GFR POC Glucose 174 H 152 H Random Glucose Estimat Average Glucose Hemoglobin A1c % Lactic Acid Calcium Magnesium Total Bilirubin Direct Bilirubin AST ALT Alkaline Phosphatase Ammonia Lactate Dehydrogenase Total Creatine Kinase C-Reactive Protein B-Natriuretic Peptide NT-Pro-B Natriuret Pep Total Protein Albumin Vitamin B12 Folate Procalcitonin 0.08 Urine Color Urine Appearance Urine pH Ur Specific [place] Urine Protein Urine Glucose (UA) Urine Ketones Urine Blood Urine Nitrite Ur Leukocyte Esterase Urine RBC Urine WBC Ur Squamous Epith Cells Urine Bacteria Hyaline Casts Granular Casts Urine Mucus Ethyl Alcohol COVID-19 (JUDITH) COVID-19 Clin Com Hep Bs Antigen Hep Bs Antibody Hep B Core Total Ab Hepatitis C Ab (EIA) 03/08/21 03/09/21 03/09/21 21:02 06:28 08:18 WBC 7.8 RBC 4.39 L Hgb 12.3 L Hct 36.0 L MCV 82.0 MCH 28.0 MCHC 34.2 RDW 13.3 Plt Count 205 MPV 11.5 Immature Gran % (Auto) Neut % (Auto) Lymph % (Auto) [place] % (Auto) Eos % (Auto) Baso % (Auto) Lymph # (Auto) [place] # (Auto) Eos # (Auto) Baso # (Auto) Abs Immat Gran (auto) Absolute Neuts (auto) Absolute Nucleated RBC 0.000 Nucleated RBC % (auto) 0.0 D-Dimer Sodium Potassium Chloride Carbon Dioxide Anion Gap BUN Creatinine Estim Creat Clear Calc Estimated GFR POC Glucose 197 H 154 H Random Glucose Estimat Average Glucose Hemoglobin A1c % Lactic Acid Calcium Magnesium Total Bilirubin Direct Bilirubin AST ALT Alkaline Phosphatase Ammonia Lactate Dehydrogenase Total Creatine Kinase C-Reactive Protein B-Natriuretic Peptide NT-Pro-B Natriuret Pep Total Protein Albumin Vitamin B12 Folate Procalcitonin Urine Color Urine Appearance Urine pH Ur Specific [place] Urine Protein Urine Glucose (UA) Urine Ketones Urine Blood Urine Nitrite Ur Leukocyte Esterase Urine RBC Urine WBC Ur Squamous Epith Cells Urine Bacteria Hyaline Casts Granular Casts Urine Mucus Ethyl Alcohol COVID-19 (JUDITH) COVID-19 Clin Com Hep Bs Antigen Hep Bs Antibody Hep B Core Total Ab Hepatitis C Ab (EIA) 03/09/21 03/09/21 03/09/21 08:18 08:18 11:46 WBC RBC Hgb Hct MCV MCH MCHC RDW Plt Count MPV Immature Gran % (Auto) Neut % (Auto) Lymph % (Auto) [place] % (Auto) Eos % (Auto) Baso % (Auto) Lymph # (Auto) [place] # (Auto) Eos # (Auto) Baso # (Auto) Abs Immat Gran (auto) Absolute Neuts (auto) Absolute Nucleated RBC Nucleated RBC % (auto) D-Dimer Sodium 144 Potassium 3.2 L Chloride 110 H Carbon Dioxide 26 Anion Gap 11 L BUN 17 H Creatinine 0.85 Estim Creat Clear Calc 118.8 Estimated GFR > 60 POC Glucose 208 H Random Glucose 152 H Estimat Average Glucose Hemoglobin A1c % Lactic Acid Calcium 9.2 Magnesium Total Bilirubin Direct Bilirubin AST ALT Alkaline Phosphatase Ammonia Lactate Dehydrogenase Total Creatine Kinase 299 H D C-Reactive Protein B-Natriuretic Peptide NT-Pro-B Natriuret Pep Total Protein Albumin Vitamin B12 Folate Procalcitonin 0.08 Urine Color Urine Appearance Urine pH Ur Specific [place] Urine Protein Urine Glucose (UA) Urine Ketones Urine Blood Urine Nitrite Ur Leukocyte Esterase Urine RBC Urine WBC Ur Squamous Epith Cells Urine Bacteria Hyaline Casts Granular Casts Urine Mucus Ethyl Alcohol COVID-19 (JUDITH) COVID-19 Clin Com Hep Bs Antigen Hep Bs Antibody Hep B Core Total Ab Hepatitis C Ab (EIA) 03/09/21 03/09/21 03/10/21 16:55 21:50 09:06 WBC RBC Hgb Hct MCV MCH MCHC RDW Plt Count MPV Immature Gran % (Auto) Neut % (Auto) Lymph % (Auto) [place] % (Auto) Eos % (Auto) Baso % (Auto) Lymph # (Auto) [place] # (Auto) Eos # (Auto) Baso # (Auto) Abs Immat Gran (auto) Absolute Neuts (auto) Absolute Nucleated RBC Nucleated RBC % (auto) D-Dimer Sodium Potassium Chloride Carbon Dioxide Anion Gap BUN Creatinine Estim Creat Clear Calc Estimated GFR POC Glucose 138 H 169 H 146 H Random Glucose Estimat Average Glucose Hemoglobin A1c % Lactic Acid Calcium Magnesium Total Bilirubin Direct Bilirubin AST ALT Alkaline Phosphatase Ammonia Lactate Dehydrogenase Total Creatine Kinase C-Reactive Protein B-Natriuretic Peptide NT-Pro-B Natriuret Pep Total Protein Albumin Vitamin B12 Folate Procalcitonin Urine Color Urine Appearance Urine pH Ur Specific [place] Urine Protein Urine Glucose (UA) Urine Ketones Urine Blood Urine Nitrite Ur Leukocyte Esterase Urine RBC Urine WBC Ur Squamous Epith Cells Urine Bacteria Hyaline Casts Granular Casts Urine Mucus Ethyl Alcohol COVID-19 (JUDITH) COVID-19 Clin Com Hep Bs Antigen Hep Bs Antibody Hep B Core Total Ab Hepatitis C Ab (EIA) 03/10/21 03/10/21 03/10/21 11:37 12:34 16:34 WBC RBC Hgb Hct MCV MCH MCHC RDW Plt Count MPV Immature Gran % (Auto) Neut % (Auto) Lymph % (Auto) [place] % (Auto) Eos % (Auto) Baso % (Auto) Lymph # (Auto) [place] # (Auto) Eos # (Auto) Baso # (Auto) Abs Immat Gran (auto) Absolute Neuts (auto) Absolute Nucleated RBC Nucleated RBC % (auto) D-Dimer Sodium 144 Potassium 3.5 Chloride 109 H Carbon Dioxide 24 Anion Gap 15 BUN 22 H Creatinine 0.98 Estim Creat Clear Calc 103.0 Estimated GFR > 60 POC Glucose 184 H 157 H Random Glucose 215 H D Estimat Average Glucose Hemoglobin A1c % Lactic Acid Calcium 9.8 D Magnesium Total Bilirubin Direct Bilirubin AST ALT Alkaline Phosphatase Ammonia Lactate Dehydrogenase Total Creatine Kinase C-Reactive Protein B-Natriuretic Peptide NT-Pro-B Natriuret Pep Total Protein Albumin Vitamin B12 Folate Procalcitonin Urine Color Urine Appearance Urine pH Ur Specific [place] Urine Protein Urine Glucose (UA) Urine Ketones Urine Blood Urine Nitrite Ur Leukocyte Esterase Urine RBC Urine WBC Ur Squamous Epith Cells Urine Bacteria Hyaline Casts Granular Casts Urine Mucus Ethyl Alcohol COVID-19 (JUDITH) COVID-19 Clin Com Hep Bs Antigen Hep Bs Antibody Hep B Core Total Ab Hepatitis C Ab (EIA) 03/10/21 03/11/21 03/11/21 21:28 07:57 08:17 WBC RBC Hgb Hct MCV MCH MCHC RDW Plt Count MPV Immature Gran % (Auto) Neut % (Auto) Lymph % (Auto) [place] % (Auto) Eos % (Auto) Baso % (Auto) Lymph # (Auto) [place] # (Auto) Eos # (Auto) Baso # (Auto) Abs Immat Gran (auto) Absolute Neuts (auto) Absolute Nucleated RBC Nucleated RBC % (auto) D-Dimer Sodium 142 Potassium 3.1 L Chloride 106 Carbon Dioxide 27 Anion Gap 12 BUN 19 H Creatinine 0.85 Estim Creat Clear Calc 118.8 Estimated GFR > 60 POC Glucose 285 H 146 H Random Glucose 156 H Estimat Average Glucose Hemoglobin A1c % Lactic Acid Calcium 9.0 D Magnesium Total Bilirubin Direct Bilirubin AST ALT Alkaline Phosphatase Ammonia Lactate Dehydrogenase Total Creatine Kinase C-Reactive Protein B-Natriuretic Peptide NT-Pro-B Natriuret Pep Total Protein Albumin Vitamin B12 Folate Procalcitonin Urine Color Urine Appearance Urine pH Ur Specific [place] Urine Protein Urine Glucose (UA) Urine Ketones Urine Blood Urine Nitrite Ur Leukocyte Esterase Urine RBC Urine WBC Ur Squamous Epith Cells Urine Bacteria Hyaline Casts Granular Casts Urine Mucus Ethyl Alcohol COVID-19 (JUDITH) COVID-19 Clin Com Hep Bs Antigen Hep Bs Antibody Hep B Core Total Ab Hepatitis C Ab (EIA) 03/11/21 03/11/21 03/11/21 12:05 16:48 20:35 WBC RBC Hgb Hct MCV MCH MCHC RDW Plt Count MPV Immature Gran % (Auto) Neut % (Auto) Lymph % (Auto) [place] % (Auto) Eos % (Auto) Baso % (Auto) Lymph # (Auto) [place] # (Auto) Eos # (Auto) Baso # (Auto) Abs Immat Gran (auto) Absolute Neuts (auto) Absolute Nucleated RBC Nucleated RBC % (auto) D-Dimer Sodium Potassium Chloride Carbon Dioxide Anion Gap BUN Creatinine Estim Creat Clear Calc Estimated GFR POC Glucose 214 H 143 H 241 H Random Glucose Estimat Average Glucose Hemoglobin A1c % Lactic Acid Calcium Magnesium Total Bilirubin Direct Bilirubin AST ALT Alkaline Phosphatase Ammonia Lactate Dehydrogenase Total Creatine Kinase C-Reactive Protein B-Natriuretic Peptide NT-Pro-B Natriuret Pep Total Protein Albumin Vitamin B12 Folate Procalcitonin Urine Color Urine Appearance Urine pH Ur Specific [place] Urine Protein Urine Glucose (UA) Urine Ketones Urine Blood Urine Nitrite Ur Leukocyte Esterase Urine RBC Urine WBC Ur Squamous Epith Cells Urine Bacteria Hyaline Casts Granular Casts Urine Mucus Ethyl Alcohol COVID-19 (JUDITH) COVID-19 Clin Com Hep Bs Antigen Hep Bs Antibody Hep B Core Total Ab Hepatitis C Ab (EIA) 03/12/21 03/12/21 03/12/21 06:38 08:02 12:00 WBC RBC Hgb Hct MCV MCH MCHC RDW Plt Count MPV Immature Gran % (Auto) Neut % (Auto) Lymph % (Auto) [place] % (Auto) Eos % (Auto) Baso % (Auto) Lymph # (Auto) [place] # (Auto) Eos # (Auto) Baso # (Auto) Abs Immat Gran (auto) Absolute Neuts (auto) Absolute Nucleated RBC Nucleated RBC % (auto) D-Dimer Sodium 144 Potassium 3.4 Chloride 108 Carbon Dioxide 27 Anion Gap 12 BUN 16 Creatinine 0.86 Estim Creat Clear Calc 130.7 Estimated GFR > 60 POC Glucose 175 H 123 H Random Glucose 147 H Estimat Average Glucose Hemoglobin A1c % Lactic Acid Calcium 8.9 Magnesium Total Bilirubin 0.6 Direct Bilirubin AST 31 ALT 55 H Alkaline Phosphatase 84 Ammonia Lactate Dehydrogenase Total Creatine Kinase C-Reactive Protein B-Natriuretic Peptide NT-Pro-B Natriuret Pep Total Protein 5.6 L Albumin 3.8 Vitamin B12 Folate Procalcitonin Urine Color Urine Appearance Urine pH Ur Specific [place] Urine Protein Urine Glucose (UA) Urine Ketones Urine Blood Urine Nitrite Ur Leukocyte Esterase Urine RBC Urine WBC Ur Squamous Epith Cells Urine Bacteria Hyaline Casts Granular Casts Urine Mucus Ethyl Alcohol COVID-19 (JUDITH) COVID-19 Clin Com Hep Bs Antigen Hep Bs Antibody Hep B Core Total Ab Hepatitis C Ab (EIA) 03/12/21 03/12/21 03/13/21 17:25 19:57 09:17 WBC RBC Hgb Hct MCV MCH MCHC RDW Plt Count MPV Immature Gran % (Auto) Neut % (Auto) Lymph % (Auto) [place] % (Auto) Eos % (Auto) Baso % (Auto) Lymph # (Auto) [place] # (Auto) Eos # (Auto) Baso # (Auto) Abs Immat Gran (auto) Absolute Neuts (auto) Absolute Nucleated RBC Nucleated RBC % (auto) D-Dimer Sodium Potassium Chloride Carbon Dioxide Anion Gap BUN Creatinine Estim Creat Clear Calc Estimated GFR POC Glucose 181 H 191 H 130 H Random Glucose Estimat Average Glucose Hemoglobin A1c % Lactic Acid Calcium Magnesium Total Bilirubin Direct Bilirubin AST ALT Alkaline Phosphatase Ammonia Lactate Dehydrogenase Total Creatine Kinase C-Reactive Protein B-Natriuretic Peptide NT-Pro-B Natriuret Pep Total Protein Albumin Vitamin B12 Folate Procalcitonin Urine Color Urine Appearance Urine pH Ur Specific [place] Urine Protein Urine Glucose (UA) Urine Ketones Urine Blood Urine Nitrite Ur Leukocyte Esterase Urine RBC Urine WBC Ur Squamous Epith Cells Urine Bacteria Hyaline Casts Granular Casts Urine Mucus Ethyl Alcohol COVID-19 (JUDITH) COVID-19 Clin Com Hep Bs Antigen Hep Bs Antibody Hep B Core Total Ab Hepatitis C Ab (EIA) 03/13/21 03/13/21 03/13/21 12:29 16:31 21:12 WBC RBC Hgb Hct MCV MCH MCHC RDW Plt Count MPV Immature Gran % (Auto) Neut % (Auto) Lymph % (Auto) [place] % (Auto) Eos % (Auto) Baso % (Auto) Lymph # (Auto) [place] # (Auto) Eos # (Auto) Baso # (Auto) Abs Immat Gran (auto) Absolute Neuts (auto) Absolute Nucleated RBC Nucleated RBC % (auto) D-Dimer Sodium Potassium Chloride Carbon Dioxide Anion Gap BUN Creatinine Estim Creat Clear Calc Estimated GFR POC Glucose 277 H 265 H 130 H Random Glucose Estimat Average Glucose Hemoglobin A1c % Lactic Acid Calcium Magnesium Total Bilirubin Direct Bilirubin AST ALT Alkaline Phosphatase Ammonia Lactate Dehydrogenase Total Creatine Kinase C-Reactive Protein B-Natriuretic Peptide NT-Pro-B Natriuret Pep Total Protein Albumin Vitamin B12 Folate Procalcitonin Urine Color Urine Appearance Urine pH Ur Specific [place] Urine Protein Urine Glucose (UA) Urine Ketones Urine Blood Urine Nitrite Ur Leukocyte Esterase Urine RBC Urine WBC Ur Squamous Epith Cells Urine Bacteria Hyaline Casts Granular Casts Urine Mucus Ethyl Alcohol COVID-19 (JUDITH) COVID-19 Clin Com Hep Bs Antigen Hep Bs Antibody Hep B Core Total Ab Hepatitis C Ab (EIA) 03/14/21 03/14/21 03/15/21 08:52 21:35 08:33 WBC RBC Hgb Hct MCV MCH MCHC RDW Plt Count MPV Immature Gran % (Auto) Neut % (Auto) Lymph % (Auto) [place] % (Auto) Eos % (Auto) Baso % (Auto) Lymph # (Auto) [place] # (Auto) Eos # (Auto) Baso # (Auto) Abs Immat Gran (auto) Absolute Neuts (auto) Absolute Nucleated RBC Nucleated RBC % (auto) D-Dimer Sodium Potassium Chloride Carbon Dioxide Anion Gap BUN Creatinine Estim Creat Clear Calc Estimated GFR POC Glucose 163 H 140 H 170 H Random Glucose Estimat Average Glucose Hemoglobin A1c % Lactic Acid Calcium Magnesium Total Bilirubin Direct Bilirubin AST ALT Alkaline Phosphatase Ammonia Lactate Dehydrogenase Total Creatine Kinase C-Reactive Protein B-Natriuretic Peptide NT-Pro-B Natriuret Pep Total Protein Albumin Vitamin B12 Folate Procalcitonin Urine Color Urine Appearance Urine pH Ur Specific [place] Urine Protein Urine Glucose (UA) Urine Ketones Urine Blood Urine Nitrite Ur Leukocyte Esterase Urine RBC Urine WBC Ur Squamous Epith Cells Urine Bacteria Hyaline Casts Granular Casts Urine Mucus Ethyl Alcohol COVID-19 (JUDITH) COVID-19 Clin Com Hep Bs Antigen Hep Bs Antibody Hep B Core Total Ab Hepatitis C Ab (EIA) 03/15/21 03/15/21 03/16/21 17:26 20:20 07:07 WBC RBC Hgb Hct MCV MCH MCHC RDW Plt Count MPV Immature Gran % (Auto) Neut % (Auto) Lymph % (Auto) [place] % (Auto) Eos % (Auto) Baso % (Auto) Lymph # (Auto) [place] # (Auto) Eos # (Auto) Baso # (Auto) Abs Immat Gran (auto) Absolute Neuts (auto) Absolute Nucleated RBC Nucleated RBC % (auto) D-Dimer Sodium Potassium Chloride Carbon Dioxide Anion Gap BUN Creatinine Estim Creat Clear Calc Estimated GFR POC Glucose 130 H 227 H 162 H Random Glucose Estimat Average Glucose Hemoglobin A1c % Lactic Acid Calcium Magnesium Total Bilirubin Direct Bilirubin AST ALT Alkaline Phosphatase Ammonia Lactate Dehydrogenase Total Creatine Kinase C-Reactive Protein B-Natriuretic Peptide NT-Pro-B Natriuret Pep Total Protein Albumin Vitamin B12 Folate Procalcitonin Urine Color Urine Appearance Urine pH Ur Specific [place] Urine Protein Urine Glucose (UA) Urine Ketones Urine Blood Urine Nitrite Ur Leukocyte Esterase Urine RBC Urine WBC Ur Squamous Epith Cells Urine Bacteria Hyaline Casts Granular Casts Urine Mucus Ethyl Alcohol COVID-19 (JUDITH) COVID-19 Clin Com Hep Bs Antigen Hep Bs Antibody Hep B Core Total Ab Hepatitis C Ab (EIA) 03/16/21 03/16/21 03/16/21 12:23 16:42 21:18 WBC RBC Hgb Hct MCV MCH MCHC RDW Plt Count MPV Immature Gran % (Auto) Neut % (Auto) Lymph % (Auto) [place] % (Auto) Eos % (Auto) Baso % (Auto) Lymph # (Auto) [place] # (Auto) Eos # (Auto) Baso # (Auto) Abs Immat Gran (auto) Absolute Neuts (auto) Absolute Nucleated RBC Nucleated RBC % (auto) D-Dimer Sodium Potassium Chloride Carbon Dioxide Anion Gap BUN Creatinine Estim Creat Clear Calc Estimated GFR POC Glucose 145 H 171 H 179 H Random Glucose Estimat Average Glucose Hemoglobin A1c % Lactic Acid Calcium Magnesium Total Bilirubin Direct Bilirubin AST ALT Alkaline Phosphatase Ammonia Lactate Dehydrogenase Total Creatine Kinase C-Reactive Protein B-Natriuretic Peptide NT-Pro-B Natriuret Pep Total Protein Albumin Vitamin B12 Folate Procalcitonin Urine Color Urine Appearance Urine pH Ur Specific [place] Urine Protein Urine Glucose (UA) Urine Ketones Urine Blood Urine Nitrite Ur Leukocyte Esterase Urine RBC Urine WBC Ur Squamous Epith Cells Urine Bacteria Hyaline Casts Granular Casts Urine Mucus Ethyl Alcohol COVID-19 (JUDITH) COVID-19 Clin Com Hep Bs Antigen Hep Bs Antibody Hep B Core Total Ab Hepatitis C Ab (EIA) 03/17/21 05:57 WBC RBC Hgb Hct MCV MCH MCHC RDW Plt Count MPV Immature Gran % (Auto) Neut % (Auto) Lymph % (Auto) [place] % (Auto) Eos % (Auto) Baso % (Auto) Lymph # (Auto) [place] # (Auto) Eos # (Auto) Baso # (Auto) Abs Immat Gran (auto) Absolute Neuts (auto) Absolute Nucleated RBC Nucleated RBC % (auto) D-Dimer Sodium Potassium Chloride Carbon Dioxide Anion Gap BUN Creatinine Estim Creat Clear Calc Estimated GFR POC Glucose 138 H Random Glucose Estimat Average Glucose Hemoglobin A1c % Lactic Acid Calcium Magnesium Total Bilirubin Direct Bilirubin AST ALT Alkaline Phosphatase Ammonia Lactate Dehydrogenase Total Creatine Kinase C-Reactive Protein B-Natriuretic Peptide NT-Pro-B Natriuret Pep Total Protein Albumin Vitamin B12 Folate Procalcitonin Urine Color Urine Appearance Urine pH Ur Specific [place] Urine Protein Urine Glucose (UA) Urine Ketones Urine Blood Urine Nitrite Ur Leukocyte Esterase Urine RBC Urine WBC Ur Squamous Epith Cells Urine Bacteria Hyaline Casts Granular Casts Urine Mucus Ethyl Alcohol COVID-19 (JUDITH) COVID-19 Clin Com Hep Bs Antigen Hep Bs Antibody Hep B Core Total Ab Hepatitis C Ab (EIA) Airway Mallampati Class: II TM Dist: >3cm Neck ROM: Full Assessment and Plan Assessment Anesthesia Assessment: Anesthesia Plan Discussed and Chart Reviewed Final Anesthetic Review Family History of Problems with Anesthesia: No History of Problems with Anesthesia: No NPO: Yes ASA Class: II Final Preanesthetic Review: No Changes in Pt Med Stat, Meds/Allgs Chart Reviewed, Consent Obtained/Reviewed and Anes Risks/Benef Reviewed Patient Risk: Low Procedure Risk: Low Assessment/Block/Sedation in SS: Assess/Block/Sedation-SS Anesthetic Plan Anesthetic Plan: GA Disposition: Standard PACU
--- NOTE | 2021-03-17 07:42 | HO.ECTPROC ---
ECT Procedure Note Diagnosis/Treatment Date of Service: 03/17/21 Diagnosis: Catatonia Previous ECT Date: 02/15/21 Current Treatment Number: 2 Treatment: Series Interval Clinical Notes: pt more ambulatory remains confused delusional ECT Settings Device: THYMATRON DGx Electrode Placement: Bifrontal Program/Pulse Width: 0.50 Energy Percent: 100 Seizure Duration By EEG (in seconds): 58 Medications Administration General Anesthetic: Etomidate (16) Muscle Relaxant: Succinylcholine (100) Ancillary Medications Analgesics: Torodol - Pre ECT Anti-emetics: Zofran - Pre ECT Miscillaneous Medications: Propofol (30 mg post) and Flumazenil Airway Management Airway Management: Bag Mask Ventilation Treatment Recommendations No Changes Recommended: No change Pt Tolerated Procedure w/o Issue: Yes
[2021-03-17] MEDS: Multivitamin TABLET 1 TAB PO (09:32)
[2021-03-17] MEDS: LORazepam 1 MG TABLET 2 MG PO ×3 (09:32→20:48)
[2021-03-17 12:38] LABS: Glucose, Whole Blood 175 mg/dL (60-115)
[2021-03-17] MEDS: Insulin Lispro 100 UNIT/ML 3 ML VIAL SUBCUT ×2 (16:59→20:48)
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
[2021-03-17 19:51] LABS: Glucose, Whole Blood 164 mg/dL (60-115)
[2021-03-17] MEDS: Atorvastatin Calcium 20 MG TABLET PO (20:48)
[2021-03-17 21:02] LABS: Glucose, Whole Blood 183 mg/dL (60-115)
[2021-03-18 06:29] LABS: Glucose, Whole Blood 165 mg/dL (60-115)
[2021-03-18 09:30] VITALS: BMI 28.7
[2021-03-18] MEDS: Insulin Lispro 100 UNIT/ML 3 ML VIAL SUBCUT ×3 (09:34→20:47)
[2021-03-18] MEDS: Multivitamin TABLET 1 TAB PO (09:35)
[2021-03-18] MEDS: LORazepam 1 MG TABLET 2 MG PO ×2 (09:35→20:29)
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
[2021-03-18] MEDS: OLANZapine 2.5 MG TABLET PO ×2 (12:52→20:30)
[2021-03-18 16:03] VITALS: BP 141/77; PULSE 91; RESP 20; TEMP 35.9
[2021-03-18 16:39] LABS: Glucose, Whole Blood 177 mg/dL (60-115)
[2021-03-18 20:19] LABS: Glucose, Whole Blood 229 mg/dL (60-115)
[2021-03-18] MEDS: Atorvastatin Calcium 20 MG TABLET PO (20:29)
[2021-03-19] VITALS (10 sets, daily range): BP systolic 120–160; BP diastolic 66–96; PULSE 82–114; RESP 16–23; TEMP 36–37.5; O2SAT 93–97; BMI 30.3
[2021-03-19 06:00] LABS: Glucose, Whole Blood 171 mg/dL (60-115)
--- NOTE | 2021-03-19 07:05 | MHC.SHP ---
Pre-Procedural Eval Section A Date of Service: 03/19/21 The patient is an INPATIENT: Yes Changes since office visit: Yes Changes in Medication; No Cold of Flu in the past 2 weeks, No New Medical Problems and No Patient answered all questions The History & Physical has been completed within 30 days and I have reviewed it.: Yes Section B Chief Complaint: acute psychosis, pre ECT assessment Allergies: Allergies Allergy/AdvReac Type Severity Reaction Status Date / Time No Known Allergies Allergy Unverified 03/05/20 17:38 [No Known Allergies*] Plan I have reviewed the history and physical and performed a pertinent physical examination on my patient. No changes have occurred unless specified.
--- NOTE | 2021-03-19 07:05 | HO.ECTPROC ---
ECT Procedure Note Diagnosis/Treatment Date of Service: 03/19/21 Diagnosis: Bipolar disorder and Catatonia Previous ECT Date: 03/17/21 Current Treatment Number: 3 Treatment: Series Interval Clinical Notes: pt more verbal remains confused ECT Settings Device: THYMATRON DGx Electrode Placement: Bifrontal Program/Pulse Width: 0.50 Energy Percent: 100 Seizure Duration By EEG (in seconds): 46 Medications Administration General Anesthetic: Etomidate (16) Muscle Relaxant: Succinylcholine (100) Ancillary Medications Analgesics: Torodol - Pre ECT Anti-emetics: Zofran - Pre ECT Miscillaneous Medications: Propofol and Flumazenil Airway Management Airway Management: Bag Mask Ventilation Treatment Recommendations Notes: per anesthesia inc succ 140 mg consider BT if not improving Pt Tolerated Procedure w/o Issue: Yes
--- NOTE | 2021-03-19 07:11 | P.CONAN_ITS ---
[facility] Active Problems Active Problems: All Active Problems (Updated 03/12/21 @ 15:56 by Chang Mason DO) Pre-op evaluation (Acute) Hypernatremia (Acute) Hypokalemia, inadequate intake (Acute) Preop cardiovascular exam (Acute) Rhabdomyolysis (Acute) Bipolar I disorder with catatonia (Acute) Catatonic excitement (Acute) Bipolar disorder (Acute) Type 2 diabetes mellitus (Chronic) Past Medical History Medical History Bipolar 1 disorder Depression Diabetes Family History Family history of problems with anesthesia: No Surgical History History of Problems with Anesthesia: No Social History Social History Household Members: Spouse Housing: Unknown / Unable to assess Do you presently have visiting nurse or other home services: No Unable to assess alcohol history related to: Unable to respond and Unknown Patient Tobacco Use Status: Tobacco use Unknown Smoked in Last 30 Days: No Use of substances other than those prescribed or required for medical reasons: Unable to respond Currently Displaying Signs/Symptoms of Drug Intoxication Withdrawal: No Are you DNR?: No Advance Directives: No Advance Directives Information Provided: No Advance Directives on File: No Do you have thoughts of harming others: None Do you have a plan to hurt others: No Plan Recently lost weight without trying: No Nutrition Risks: Difficulty chewing and Difficulty swallowing Poor oral hygiene: Yes service: No Sexual orientation: Straight/Heterosexual Meds Allergies Allergy/AdvReac Type Severity Reaction Status Date / Time No Known Allergies Allergy Unverified 03/05/20 17:38 [No Known Allergies*] Active Medications: Current Medications Acetaminophen (Acetaminophen 325 Mg Tablet) 650 mg PO Q6H PRN PRN Reason: Headache/Pain Mild Scale (1-3) Acetaminophen (Acetaminophen 325 Mg Tablet) 650 mg PO ONCE PRN PRN Reason: Pain, Mild (Pain Scale 1-3) Al Hydroxide/Mg Hydroxide (Magnesium Hydrox/Alum Hydrox 30 Ml Oral.Susp) 30 ml PO Q6H PRN PRN Reason: Heartburn/Nausea Atorvastatin Calcium (Atorvastatin Calcium 20 Mg Tablet) 20 mg PO BEDTIME KATEY Last Admin: 03/18/21 20:29 Dose: 20 mg Documented by: Enoxaparin Sodium (Enoxaparin Sodium 40 Mg/0.4 Ml Syringe) 40 mg SUBCUT Q24H FORMERLY [facility], 1928–1983 Last Admin: 03/18/21 14:47 Dose: Not Given Documented by: Glucose (Glucose Gel 15 Gm Gel..Gram.) 15 gm PO Q15M PRN; Protocol PRN Reason: per Hypoglycemia Standing Ord. Insulin Human Lispro (Insulin Lispro 100 Unit/Ml 3 Ml Vial) 0 unit SUBCUT QIDACHS FORMERLY [facility], 1928–1983; Protocol Last Admin: 03/18/21 20:47 Dose: 4 unit Documented by: Lorazepam (Lorazepam 1 Mg Tablet) 2 mg PO BID FORMERLY [facility], [facility]1983 Last Admin: 03/18/21 20:29 Dose: 2 mg Documented by: Magnesium Hydroxide (Milk Of Magnesia 30 Ml Oral.Susp) 30 ml PO DAILY PRN PRN Reason: Constipation Multivitamins/Vitamin C (Multivitamin Tablet) 1 tab PO DAILY FORMERLY [facility], [facility] Last Admin: 03/18/21 09:35 Dose: 1 tab Documented by: Nicotine Polacrilex (Nicotine Polacrilex 2 Mg Gum) 4 mg BUCCAL Q2H PRN PRN Reason: Nicotine Cravings Last Admin: 03/09/21 09:46 Dose: 4 mg Documented by: Olanzapine (Olanzapine 2.5 Mg Tablet) 2.5 mg PO BID FORMERLY [facility], [facility]1983 Last Admin: 03/18/21 20:30 Dose: 2.5 mg Documented by: Home Medications Medication Instructions Recorded Confirmed Last Taken Type atorvastatin 20 mg tablet 1 tab PO BEDTIME 03/01/21 03/01/21 02/28/21 History empagliflozin 10 mg tablet 1 tab PO QAM 03/01/21 03/01/21 02/28/21 History (Jardiance) glipizide 10 mg tablet, extended 1 tab PO DAILY 03/01/21 03/01/21 02/28/21 History release 24 hr lorazepam 1 mg tablet 1 mg PO TID 03/01/21 03/01/21 03/01/21 History metformin 1,000 mg tablet 1 tab PO BID 03/01/21 03/01/21 02/28/21 History multivitamin 1 tab PO DAILY 03/01/21 03/01/21 02/28/21 History olanzapine 10 mg tablet 10 mg PO BEDTIME 03/01/21 03/01/21 Unknown History sertraline 100 mg tablet 2 tab PO QAM 03/01/21 03/01/21 03/01/21 History Exam Exam Date and Time: March 19, 2021 0711 Height,Weight and Vital Signs: Height 6 ft 1 in Weight 104.326 kg Last Vital Signs Temp 97.2 F 03/19/21 06:29 Pulse 89 03/19/21 06:29 Resp 17 03/19/21 06:29 BP 135/87 03/19/21 06:29 Pulse Ox 94 03/19/21 06:29 Pertinent Lab Results Pertinent Lab Results: Laboratory Tests 03/01/21 03/01/21 03/01/21 14:37 14:49 14:49 WBC 11.7 H RBC 5.27 Hgb 14.5 Hct 44.2 MCV 83.9 MCH 27.5 MCHC 32.8 RDW 13.9 Plt Count 277 MPV 11.0 Immature Gran % (Auto) 0.6 H Neut % (Auto) 78.6 H Lymph % (Auto) 13.9 L [place] % (Auto) 6.6 Eos % (Auto) 0.0 Baso % (Auto) 0.3 Lymph # (Auto) 1.6 [place] # (Auto) 0.8 Eos # (Auto) 0.0 Baso # (Auto) 0.0 Abs Immat Gran (auto) 0.07 H Absolute Neuts (auto) 9.2 H Absolute Nucleated RBC 0.000 Nucleated RBC % (auto) 0.0 D-Dimer Sodium 143 Potassium 4.0 Chloride 107 Carbon Dioxide 21 L Anion Gap 19 BUN 30 H Creatinine 1.16 Estim Creat Clear Calc 87.0 Estimated GFR > 60 POC Glucose Random Glucose 141 H Estimat Average Glucose Hemoglobin A1c % Lactic Acid Calcium 10.6 H Magnesium Total Bilirubin 0.5 Direct Bilirubin 0.2 AST 22 ALT 46 H Alkaline Phosphatase 105 Ammonia Lactate Dehydrogenase Total Creatine Kinase C-Reactive Protein B-Natriuretic Peptide NT-Pro-B Natriuret Pep Total Protein 8.2 H Albumin 5.5 H Vitamin B12 Folate Procalcitonin Urine Color Urine Appearance Urine pH Ur Specific [place] Urine Protein Urine Glucose (UA) Urine Ketones Urine Blood Urine Nitrite Ur Leukocyte Esterase Urine RBC Urine WBC Ur Squamous Epith Cells Urine Bacteria Hyaline Casts Granular Casts Urine Mucus Ethyl Alcohol COVID-19 (JUDITH) Negative COVID-19 Clin Com See Note Hep Bs Antigen Hep Bs Antibody Hep B Core Total Ab Hepatitis C Ab (EIA) 09/13/21 09/14/21 09/14/21 14:49 00:59 01:01 WBC RBC Hgb Hct MCV MCH MCHC RDW Plt Count MPV Immature Gran % (Auto) Neut % (Auto) Lymph % (Auto) [place] % (Auto) Eos % (Auto) Baso % (Auto) Lymph # (Auto) [place] # (Auto) Eos # (Auto) Baso # (Auto) Abs Immat Gran (auto) Absolute Neuts (auto) Absolute Nucleated RBC Nucleated RBC % (auto) D-Dimer Sodium Potassium Chloride Carbon Dioxide Anion Gap BUN Creatinine Estim Creat Clear Calc Estimated GFR POC Glucose 155 H 161 H Random Glucose Estimat Average Glucose Hemoglobin A1c % Lactic Acid Calcium Magnesium Total Bilirubin Direct Bilirubin AST ALT Alkaline Phosphatase Ammonia Lactate Dehydrogenase Total Creatine Kinase C-Reactive Protein B-Natriuretic Peptide NT-Pro-B Natriuret Pep Total Protein Albumin Vitamin B12 Folate Procalcitonin Urine Color Urine Appearance Urine pH Ur Specific [place] Urine Protein Urine Glucose (UA) Urine Ketones Urine Blood Urine Nitrite Ur Leukocyte Esterase Urine RBC Urine WBC Ur Squamous Epith Cells Urine Bacteria Hyaline Casts Granular Casts Urine Mucus Ethyl Alcohol < 10 COVID-19 (JUDITH) COVID-19 Clin Com Hep Bs Antigen Hep Bs Antibody Hep B Core Total Ab Hepatitis C Ab (EIA) 03/02/21 03/03/21 03/03/21 09:30 12:36 12:36 WBC 11.8 H RBC 4.76 Hgb 13.1 L Hct 40.5 L MCV 85.1 MCH 27.5 MCHC 32.3 RDW 14.0 Plt Count 265 MPV 10.6 Immature Gran % (Auto) 0.5 H Neut % (Auto) 74.8 H Lymph % (Auto) 16.6 L [place] % (Auto) 7.8 Eos % (Auto) 0.0 Baso % (Auto) 0.3 Lymph # (Auto) 2.0 [place] # (Auto) 0.9 Eos # (Auto) 0.0 Baso # (Auto) 0.0 Abs Immat Gran (auto) 0.06 H Absolute Neuts (auto) 8.8 H Absolute Nucleated RBC 0.000 Nucleated RBC % (auto) 0.0 D-Dimer Sodium 148 H Potassium 3.5 Chloride 114 H Carbon Dioxide 20 L Anion Gap 18 BUN 33 H Creatinine 1.07 Estim Creat Clear Calc 94.3 Estimated GFR > 60 POC Glucose 214 H Random Glucose Estimat Average Glucose Hemoglobin A1c % Lactic Acid Calcium Magnesium Total Bilirubin Direct Bilirubin AST ALT Alkaline Phosphatase Ammonia Lactate Dehydrogenase Total Creatine Kinase C-Reactive Protein B-Natriuretic Peptide NT-Pro-B Natriuret Pep Total Protein Albumin Vitamin B12 Folate Procalcitonin Urine Color Urine Appearance Urine pH Ur Specific [place] Urine Protein Urine Glucose (UA) Urine Ketones Urine Blood Urine Nitrite Ur Leukocyte Esterase Urine RBC Urine WBC Ur Squamous Epith Cells Urine Bacteria Hyaline Casts Granular Casts Urine Mucus Ethyl Alcohol COVID-19 (JUIDTH) COVID-19 Clin Com Hep Bs Antigen Hep Bs Antibody Hep B Core Total Ab Hepatitis C Ab (EIA) 03/03/21 03/03/21 03/03/21 12:36 12:36 12:36 WBC RBC Hgb Hct MCV MCH MCHC RDW Plt Count MPV Immature Gran % (Auto) Neut % (Auto) Lymph % (Auto) [place] % (Auto) Eos % (Auto) Baso % (Auto) Lymph # (Auto) [place] # (Auto) Eos # (Auto) Baso # (Auto) Abs Immat Gran (auto) Absolute Neuts (auto) Absolute Nucleated RBC Nucleated RBC % (auto) D-Dimer Sodium Potassium Chloride Carbon Dioxide Anion Gap BUN Creatinine Estim Creat Clear Calc Estimated GFR POC Glucose Random Glucose Estimat Average Glucose Hemoglobin A1c % Lactic Acid Calcium 10.3 H Magnesium Total Bilirubin 0.8 Direct Bilirubin 0.3 AST 47 H D ALT 37 Alkaline Phosphatase 91 Ammonia 29 Lactate Dehydrogenase Total Creatine Kinase C-Reactive Protein B-Natriuretic Peptide NT-Pro-B Natriuret Pep Total Protein 7.1 Albumin 5.0 Vitamin B12 Folate Procalcitonin Urine Color Urine Appearance Urine pH Ur Specific [place] Urine Protein Urine Glucose (UA) Urine Ketones Urine Blood Urine Nitrite Ur Leukocyte Esterase Urine RBC Urine WBC Ur Squamous Epith Cells Urine Bacteria Hyaline Casts Granular Casts Urine Mucus Ethyl Alcohol COVID-19 (JUDITH) COVID-19 Clin Com Hep Bs Antigen Hep Bs Antibody Hep B Core Total Ab Hepatitis C Ab (EIA) 03/03/21 03/04/21 03/04/21 20:18 07:54 07:54 WBC RBC Hgb Hct MCV MCH MCHC RDW Plt Count MPV Immature Gran % (Auto) Neut % (Auto) Lymph % (Auto) [place] % (Auto) Eos % (Auto) Baso % (Auto) Lymph # (Auto) [place] # (Auto) Eos # (Auto) Baso # (Auto) Abs Immat Gran (auto) Absolute Neuts (auto) Absolute Nucleated RBC Nucleated RBC % (auto) D-Dimer Sodium 146 H Potassium 4.0 Chloride 111 H Carbon Dioxide 18 L Anion Gap 21 H BUN 41 H Creatinine 1.35 Estim Creat Clear Calc 74.8 Estimated GFR 56 POC Glucose 147 H Random Glucose 183 H Estimat Average Glucose 146 Hemoglobin A1c % 6.7 Lactic Acid Calcium 10.8 H Magnesium Total Bilirubin Direct Bilirubin AST ALT Alkaline Phosphatase Ammonia Lactate Dehydrogenase Total Creatine Kinase C-Reactive Protein B-Natriuretic Peptide NT-Pro-B Natriuret Pep Total Protein Albumin Vitamin B12 Folate Procalcitonin Urine Color Urine Appearance Urine pH Ur Specific [place] Urine Protein Urine Glucose (UA) Urine Ketones Urine Blood Urine Nitrite Ur Leukocyte Esterase Urine RBC Urine WBC Ur Squamous Epith Cells Urine Bacteria Hyaline Casts Granular Casts Urine Mucus Ethyl Alcohol COVID-19 (JUDITH) COVID-19 Clin Com Hep Bs Antigen Hep Bs Antibody Hep B Core Total Ab Hepatitis C Ab (EIA) 03/04/21 03/04/21 03/04/21 08:05 12:21 17:08 WBC RBC Hgb Hct MCV MCH MCHC RDW Plt Count MPV Immature Gran % (Auto) Neut % (Auto) Lymph % (Auto) [place] % (Auto) Eos % (Auto) Baso % (Auto) Lymph # (Auto) [place] # (Auto) Eos # (Auto) Baso # (Auto) Abs Immat Gran (auto) Absolute Neuts (auto) Absolute Nucleated RBC Nucleated RBC % (auto) D-Dimer Sodium Potassium Chloride Carbon Dioxide Anion Gap BUN Creatinine Estim Creat Clear Calc Estimated GFR POC Glucose 186 H 191 H 174 H Random Glucose Estimat Average Glucose Hemoglobin A1c % Lactic Acid Calcium Magnesium Total Bilirubin Direct Bilirubin AST ALT Alkaline Phosphatase Ammonia Lactate Dehydrogenase Total Creatine Kinase C-Reactive Protein B-Natriuretic Peptide NT-Pro-B Natriuret Pep Total Protein Albumin Vitamin B12 Folate Procalcitonin Urine Color Urine Appearance Urine pH Ur Specific [place] Urine Protein Urine Glucose (UA) Urine Ketones Urine Blood Urine Nitrite Ur Leukocyte Esterase Urine RBC Urine WBC Ur Squamous Epith Cells Urine Bacteria Hyaline Casts Granular Casts Urine Mucus Ethyl Alcohol COVID-19 (JUDITH) COVID-19 Clin Com Hep Bs Antigen Hep Bs Antibody Hep B Core Total Ab Hepatitis C Ab (EIA) 03/04/21 03/05/21 03/05/21 21:42 08:28 09:32 WBC 8.9 RBC 4.83 Hgb 13.2 L Hct 40.6 L MCV 84.1 MCH 27.3 MCHC 32.5 RDW 13.9 Plt Count 252 MPV 11.5 Immature Gran % (Auto) 0.9 H Neut % (Auto) 73.6 H Lymph % (Auto) 18.2 L [place] % (Auto) 7.1 Eos % (Auto) 0.0 Baso % (Auto) 0.2 Lymph # (Auto) 1.6 [place] # (Auto) 0.6 Eos # (Auto) 0.0 Baso # (Auto) 0.0 Abs Immat Gran (auto) 0.08 H Absolute Neuts (auto) 6.5 Absolute Nucleated RBC 0.000 Nucleated RBC % (auto) 0.0 D-Dimer Sodium Potassium Chloride Carbon Dioxide Anion Gap BUN Creatinine Estim Creat Clear Calc Estimated GFR POC Glucose 212 H 179 H Random Glucose Estimat Average Glucose Hemoglobin A1c % Lactic Acid Calcium Magnesium Total Bilirubin Direct Bilirubin AST ALT Alkaline Phosphatase Ammonia Lactate Dehydrogenase Total Creatine Kinase C-Reactive Protein B-Natriuretic Peptide NT-Pro-B Natriuret Pep Total Protein Albumin Vitamin B12 Folate Procalcitonin Urine Color Urine Appearance Urine pH Ur Specific [place] Urine Protein Urine Glucose (UA) Urine Ketones Urine Blood Urine Nitrite Ur Leukocyte Esterase Urine RBC Urine WBC Ur Squamous Epith Cells Urine Bacteria Hyaline Casts Granular Casts Urine Mucus Ethyl Alcohol COVID-19 (JUDITH) COVID-19 Clin Com Hep Bs Antigen Hep Bs Antibody Hep B Core Total Ab Hepatitis C Ab (EIA) 03/05/21 03/05/21 03/06/21 09:32 17:32 06:42 WBC RBC Hgb Hct MCV MCH MCHC RDW Plt Count MPV Immature Gran % (Auto) Neut % (Auto) Lymph % (Auto) [place] % (Auto) Eos % (Auto) Baso % (Auto) Lymph # (Auto) [place] # (Auto) Eos # (Auto) Baso # (Auto) Abs Immat Gran (auto) Absolute Neuts (auto) Absolute Nucleated RBC Nucleated RBC % (auto) D-Dimer Sodium 149 H Potassium 3.3 Chloride 116 H Carbon Dioxide 24 Anion Gap 12 BUN 36 H Creatinine 1.09 Estim Creat Clear Calc 92.6 Estimated GFR > 60 POC Glucose 241 H 172 H Random Glucose Estimat Average Glucose Hemoglobin A1c % Lactic Acid Calcium Magnesium Total Bilirubin 0.7 Direct Bilirubin 0.3 AST 72 H ALT 51 H Alkaline Phosphatase 88 Ammonia Lactate Dehydrogenase 235 Total Creatine Kinase 1870 H C-Reactive Protein B-Natriuretic Peptide NT-Pro-B Natriuret Pep Total Protein 6.6 Albumin 4.6 Vitamin B12 Folate Procalcitonin Urine Color Urine Appearance Urine pH Ur Specific [place] Urine Protein Urine Glucose (UA) Urine Ketones Urine Blood Urine Nitrite Ur Leukocyte Esterase Urine RBC Urine WBC Ur Squamous Epith Cells Urine Bacteria Hyaline Casts Granular Casts Urine Mucus Ethyl Alcohol COVID-19 (JUDITH) COVID-19 Clin Com Hep Bs Antigen Hep Bs Antibody Hep B Core Total Ab Hepatitis C Ab (EIA) 03/06/21 03/06/21 03/06/21 09:22 09:23 09:23 WBC RBC Hgb Hct MCV MCH MCHC RDW Plt Count MPV Immature Gran % (Auto) Neut % (Auto) Lymph % (Auto) [place] % (Auto) Eos % (Auto) Baso % (Auto) Lymph # (Auto) [place] # (Auto) Eos # (Auto) Baso # (Auto) Abs Immat Gran (auto) Absolute Neuts (auto) Absolute Nucleated RBC Nucleated RBC % (auto) D-Dimer Sodium 150 H Potassium 3.3 Chloride 117 H Carbon Dioxide 20 L Anion Gap 16 BUN 31 H Creatinine 1.22 Estim Creat Clear Calc 82.7 Estimated GFR > 60 POC Glucose Random Glucose 205 H Estimat Average Glucose Hemoglobin A1c % Lactic Acid Calcium 9.4 D Magnesium Total Bilirubin 1.0 Direct Bilirubin 0.4 AST 73 H ALT 65 H Alkaline Phosphatase 91 Ammonia Lactate Dehydrogenase Total Creatine Kinase 1633 H C-Reactive Protein B-Natriuretic Peptide NT-Pro-B Natriuret Pep Total Protein 6.8 Albumin 4.6 Vitamin B12 1285 H Folate 19.3 Procalcitonin Urine Color Urine Appearance Urine pH Ur Specific [place] Urine Protein Urine Glucose (UA) Urine Ketones Urine Blood Urine Nitrite Ur Leukocyte Esterase Urine RBC Urine WBC Ur Squamous Epith Cells Urine Bacteria Hyaline Casts Granular Casts Urine Mucus Ethyl Alcohol COVID-19 (JUDITH) COVID-19 Clin Com Hep Bs Antigen Negative Hep Bs Antibody REACTIVE Hep B Core Total Ab Nonreactive Hepatitis C Ab (EIA) Nonreactive 03/06/21 03/06/21 03/06/21 12:26 16:56 21:37 WBC RBC Hgb Hct MCV MCH MCHC RDW Plt Count MPV Immature Gran % (Auto) Neut % (Auto) Lymph % (Auto) [place] % (Auto) Eos % (Auto) Baso % (Auto) Lymph # (Auto) [place] # (Auto) Eos # (Auto) Baso # (Auto) Abs Immat Gran (auto) Absolute Neuts (auto) Absolute Nucleated RBC Nucleated RBC % (auto) D-Dimer Sodium Potassium Chloride Carbon Dioxide Anion Gap BUN Creatinine Estim Creat Clear Calc Estimated GFR POC Glucose 203 H 217 H 189 H Random Glucose Estimat Average Glucose Hemoglobin A1c % Lactic Acid Calcium Magnesium Total Bilirubin Direct Bilirubin AST ALT Alkaline Phosphatase Ammonia Lactate Dehydrogenase Total Creatine Kinase C-Reactive Protein B-Natriuretic Peptide NT-Pro-B Natriuret Pep Total Protein Albumin Vitamin B12 Folate Procalcitonin Urine Color Urine Appearance Urine pH Ur Specific [place] Urine Protein Urine Glucose (UA) Urine Ketones Urine Blood Urine Nitrite Ur Leukocyte Esterase Urine RBC Urine WBC Ur Squamous Epith Cells Urine Bacteria Hyaline Casts Granular Casts Urine Mucus Ethyl Alcohol COVID-19 (JUDITH) COVID-19 Clin Com Hep Bs Antigen Hep Bs Antibody Hep B Core Total Ab Hepatitis C Ab (EIA) 03/07/21 03/07/21 03/07/21 06:36 08:03 08:23 WBC RBC Hgb Hct MCV MCH MCHC RDW Plt Count MPV Immature Gran % (Auto) Neut % (Auto) Lymph % (Auto) [place] % (Auto) Eos % (Auto) Baso % (Auto) Lymph # (Auto) [place] # (Auto) Eos # (Auto) Baso # (Auto) Abs Immat Gran (auto) Absolute Neuts (auto) Absolute Nucleated RBC Nucleated RBC % (auto) D-Dimer Sodium 147 H Potassium 3.0 L Chloride 113 H Carbon Dioxide 25 Anion Gap 12 BUN 24 H Creatinine 0.86 Estim Creat Clear Calc 117.4 Estimated GFR > 60 POC Glucose 186 H 175 H Random Glucose 200 H Estimat Average Glucose Hemoglobin A1c % Lactic Acid Calcium 8.7 D Magnesium Total Bilirubin Direct Bilirubin AST ALT Alkaline Phosphatase Ammonia Lactate Dehydrogenase Total Creatine Kinase 972 H D C-Reactive Protein B-Natriuretic Peptide NT-Pro-B Natriuret Pep Total Protein Albumin Vitamin B12 Folate Procalcitonin Urine Color Urine Appearance Urine pH Ur Specific [place] Urine Protein Urine Glucose (UA) Urine Ketones Urine Blood Urine Nitrite Ur Leukocyte Esterase Urine RBC Urine WBC Ur Squamous Epith Cells Urine Bacteria Hyaline Casts Granular Casts Urine Mucus Ethyl Alcohol COVID-19 (JUDITH) COVID-19 Clin Com Hep Bs Antigen Hep Bs Antibody Hep B Core Total Ab Hepatitis C Ab (EIA) 03/07/21 03/07/21 03/07/21 13:13 16:35 21:22 WBC RBC Hgb Hct MCV MCH MCHC RDW Plt Count MPV Immature Gran % (Auto) Neut % (Auto) Lymph % (Auto) [place] % (Auto) Eos % (Auto) Baso % (Auto) Lymph # (Auto) [place] # (Auto) Eos # (Auto) Baso # (Auto) Abs Immat Gran (auto) Absolute Neuts (auto) Absolute Nucleated RBC Nucleated RBC % (auto) D-Dimer Sodium Potassium Chloride Carbon Dioxide Anion Gap BUN Creatinine Estim Creat Clear Calc Estimated GFR POC Glucose 165 H 190 H Random Glucose Estimat Average Glucose Hemoglobin A1c % Lactic Acid 0.8 Calcium Magnesium Total Bilirubin Direct Bilirubin AST ALT Alkaline Phosphatase Ammonia Lactate Dehydrogenase Total Creatine Kinase C-Reactive Protein B-Natriuretic Peptide NT-Pro-B Natriuret Pep Total Protein Albumin Vitamin B12 Folate Procalcitonin Urine Color Urine Appearance Urine pH Ur Specific [place] Urine Protein Urine Glucose (UA) Urine Ketones Urine Blood Urine Nitrite Ur Leukocyte Esterase Urine RBC Urine WBC Ur Squamous Epith Cells Urine Bacteria Hyaline Casts Granular Casts Urine Mucus Ethyl Alcohol COVID-19 (JUDITH) COVID-19 Clin Com Hep Bs Antigen Hep Bs Antibody Hep B Core Total Ab Hepatitis C Ab (EIA) 03/07/21 03/07/21 03/07/21 21:22 21:23 21:23 WBC 8.2 RBC 4.37 L Hgb 12.1 L Hct 36.1 L MCV 82.6 MCH 27.7 MCHC 33.5 RDW 13.3 Plt Count 189 MPV 11.2 Immature Gran % (Auto) 0.6 H Neut % (Auto) 65.9 Lymph % (Auto) 25.1 [place] % (Auto) 7.5 Eos % (Auto) 0.7 Baso % (Auto) 0.2 Lymph # (Auto) 2.1 [place] # (Auto) 0.6 Eos # (Auto) 0.1 Baso # (Auto) 0.0 Abs Immat Gran (auto) 0.05 H Absolute Neuts (auto) 5.4 Absolute Nucleated RBC 0.000 Nucleated RBC % (auto) 0.0 D-Dimer 337 Sodium Potassium Chloride Carbon Dioxide Anion Gap BUN Creatinine Estim Creat Clear Calc Estimated GFR POC Glucose Random Glucose Estimat Average Glucose Hemoglobin A1c % Lactic Acid Calcium Magnesium Total Bilirubin Direct Bilirubin AST ALT Alkaline Phosphatase Ammonia Lactate Dehydrogenase Total Creatine Kinase C-Reactive Protein B-Natriuretic Peptide NT-Pro-B Natriuret Pep Total Protein Albumin Vitamin B12 Folate Procalcitonin Urine Color YELLOW Urine Appearance CLEAR Urine pH 6.0 Ur Specific [place] >= 1.030 H Urine Protein TRACE Urine Glucose (UA) >=1000 H Urine Ketones NEG Urine Blood NEG Urine Nitrite NEG Ur Leukocyte Esterase NEG Urine RBC 1-4 Urine WBC 1-4 Ur Squamous Epith Cells 1+ Urine Bacteria 1+ Hyaline Casts 0-2 Granular Casts 0-2 Urine Mucus 2+ Ethyl Alcohol COVID-19 (JUDITH) COVID-19 Clin Com Hep Bs Antigen Hep Bs Antibody Hep B Core Total Ab Hepatitis C Ab (EIA) 03/07/21 03/07/21 03/07/21 21:23 21:23 21:23 WBC RBC Hgb Hct MCV MCH MCHC RDW Plt Count MPV Immature Gran % (Auto) Neut % (Auto) Lymph % (Auto) [place] % (Auto) Eos % (Auto) Baso % (Auto) Lymph # (Auto) [place] # (Auto) Eos # (Auto) Baso # (Auto) Abs Immat Gran (auto) Absolute Neuts (auto) Absolute Nucleated RBC Nucleated RBC % (auto) D-Dimer Sodium 146 H Potassium 2.9 L Chloride 111 H Carbon Dioxide 25 Anion Gap 13 BUN 21 H Creatinine 0.85 Estim Creat Clear Calc 118.8 Estimated GFR > 60 POC Glucose Random Glucose 124 H D Estimat Average Glucose Hemoglobin A1c % Lactic Acid Calcium 8.7 Magnesium Total Bilirubin 0.6 Direct Bilirubin AST 50 H ALT 56 H Alkaline Phosphatase 79 Ammonia Lactate Dehydrogenase Total Creatine Kinase C-Reactive Protein B-Natriuretic Peptide 86 NT-Pro-B Natriuret Pep Cancelled Total Protein 5.5 L Albumin 3.8 Vitamin B12 Folate Procalcitonin Urine Color Urine Appearance Urine pH Ur Specific [place] Urine Protein Urine Glucose (UA) Urine Ketones Urine Blood Urine Nitrite Ur Leukocyte Esterase Urine RBC Urine WBC Ur Squamous Epith Cells Urine Bacteria Hyaline Casts Granular Casts Urine Mucus Ethyl Alcohol COVID-19 (JUDITH) COVID-19 Clin Com Hep Bs Antigen Hep Bs Antibody Hep B Core Total Ab Hepatitis C Ab (EIA) 03/07/21 03/08/21 03/08/21 21:43 06:32 08:19 WBC RBC Hgb Hct MCV MCH MCHC RDW Plt Count MPV Immature Gran % (Auto) Neut % (Auto) Lymph % (Auto) [place] % (Auto) Eos % (Auto) Baso % (Auto) Lymph # (Auto) [place] # (Auto) Eos # (Auto) Baso # (Auto) Abs Immat Gran (auto) Absolute Neuts (auto) Absolute Nucleated RBC Nucleated RBC % (auto) D-Dimer Sodium 143 Potassium 2.9 L Chloride 108 Carbon Dioxide 26 Anion Gap 12 BUN 17 H Creatinine 0.82 Estim Creat Clear Calc 123.1 Estimated GFR > 60 POC Glucose 127 H 144 H Random Glucose 173 H D Estimat Average Glucose Hemoglobin A1c % Lactic Acid Calcium 8.9 Magnesium 2.0 Total Bilirubin Direct Bilirubin AST ALT Alkaline Phosphatase Ammonia Lactate Dehydrogenase Total Creatine Kinase 584 H D C-Reactive Protein 1.08 H B-Natriuretic Peptide NT-Pro-B Natriuret Pep Total Protein Albumin Vitamin B12 Folate Procalcitonin Urine Color Urine Appearance Urine pH Ur Specific [place] Urine Protein Urine Glucose (UA) Urine Ketones Urine Blood Urine Nitrite Ur Leukocyte Esterase Urine RBC Urine WBC Ur Squamous Epith Cells Urine Bacteria Hyaline Casts Granular Casts Urine Mucus Ethyl Alcohol COVID-19 (JUDITH) COVID-19 Clin Com Hep Bs Antigen Hep Bs Antibody Hep B Core Total Ab Hepatitis C Ab (EIA) 03/08/21 03/08/21 03/08/21 08:19 12:50 17:26 WBC RBC Hgb Hct MCV MCH MCHC RDW Plt Count MPV Immature Gran % (Auto) Neut % (Auto) Lymph % (Auto) [place] % (Auto) Eos % (Auto) Baso % (Auto) Lymph # (Auto) [place] # (Auto) Eos # (Auto) Baso # (Auto) Abs Immat Gran (auto) Absolute Neuts (auto) Absolute Nucleated RBC Nucleated RBC % (auto) D-Dimer Sodium Potassium Chloride Carbon Dioxide Anion Gap BUN Creatinine Estim Creat Clear Calc Estimated GFR POC Glucose 174 H 152 H Random Glucose Estimat Average Glucose Hemoglobin A1c % Lactic Acid Calcium Magnesium Total Bilirubin Direct Bilirubin AST ALT Alkaline Phosphatase Ammonia Lactate Dehydrogenase Total Creatine Kinase C-Reactive Protein B-Natriuretic Peptide NT-Pro-B Natriuret Pep Total Protein Albumin Vitamin B12 Folate Procalcitonin 0.08 Urine Color Urine Appearance Urine pH Ur Specific [place] Urine Protein Urine Glucose (UA) Urine Ketones Urine Blood Urine Nitrite Ur Leukocyte Esterase Urine RBC Urine WBC Ur Squamous Epith Cells Urine Bacteria Hyaline Casts Granular Casts Urine Mucus Ethyl Alcohol COVID-19 (JUDITH) COVID-19 Clin Com Hep Bs Antigen Hep Bs Antibody Hep B Core Total Ab Hepatitis C Ab (EIA) 03/08/21 03/09/21 03/09/21 21:02 06:28 08:18 WBC 7.8 RBC 4.39 L Hgb 12.3 L Hct 36.0 L MCV 82.0 MCH 28.0 MCHC 34.2 RDW 13.3 Plt Count 205 MPV 11.5 Immature Gran % (Auto) Neut % (Auto) Lymph % (Auto) [place] % (Auto) Eos % (Auto) Baso % (Auto) Lymph # (Auto) [place] # (Auto) Eos # (Auto) Baso # (Auto) Abs Immat Gran (auto) Absolute Neuts (auto) Absolute Nucleated RBC 0.000 Nucleated RBC % (auto) 0.0 D-Dimer Sodium Potassium Chloride Carbon Dioxide Anion Gap BUN Creatinine Estim Creat Clear Calc Estimated GFR POC Glucose 197 H 154 H Random Glucose Estimat Average Glucose Hemoglobin A1c % Lactic Acid Calcium Magnesium Total Bilirubin Direct Bilirubin AST ALT Alkaline Phosphatase Ammonia Lactate Dehydrogenase Total Creatine Kinase C-Reactive Protein B-Natriuretic Peptide NT-Pro-B Natriuret Pep Total Protein Albumin Vitamin B12 Folate Procalcitonin Urine Color Urine Appearance Urine pH Ur Specific [place] Urine Protein Urine Glucose (UA) Urine Ketones Urine Blood Urine Nitrite Ur Leukocyte Esterase Urine RBC Urine WBC Ur Squamous Epith Cells Urine Bacteria Hyaline Casts Granular Casts Urine Mucus Ethyl Alcohol COVID-19 (JUDITH) COVID-19 Clin Com Hep Bs Antigen Hep Bs Antibody Hep B Core Total Ab Hepatitis C Ab (EIA) 03/09/21 03/09/21 03/09/21 08:18 08:18 11:46 WBC RBC Hgb Hct MCV MCH MCHC RDW Plt Count MPV Immature Gran % (Auto) Neut % (Auto) Lymph % (Auto) [place] % (Auto) Eos % (Auto) Baso % (Auto) Lymph # (Auto) [place] # (Auto) Eos # (Auto) Baso # (Auto) Abs Immat Gran (auto) Absolute Neuts (auto) Absolute Nucleated RBC Nucleated RBC % (auto) D-Dimer Sodium 144 Potassium 3.2 L Chloride 110 H Carbon Dioxide 26 Anion Gap 11 L BUN 17 H Creatinine 0.85 Estim Creat Clear Calc 118.8 Estimated GFR > 60 POC Glucose 208 H Random Glucose 152 H Estimat Average Glucose Hemoglobin A1c % Lactic Acid Calcium 9.2 Magnesium Total Bilirubin Direct Bilirubin AST ALT Alkaline Phosphatase Ammonia Lactate Dehydrogenase Total Creatine Kinase 299 H D C-Reactive Protein B-Natriuretic Peptide NT-Pro-B Natriuret Pep Total Protein Albumin Vitamin B12 Folate Procalcitonin 0.08 Urine Color Urine Appearance Urine pH Ur Specific [place] Urine Protein Urine Glucose (UA) Urine Ketones Urine Blood Urine Nitrite Ur Leukocyte Esterase Urine RBC Urine WBC Ur Squamous Epith Cells Urine Bacteria Hyaline Casts Granular Casts Urine Mucus Ethyl Alcohol COVID-19 (JUDITH) COVID-19 Clin Com Hep Bs Antigen Hep Bs Antibody Hep B Core Total Ab Hepatitis C Ab (EIA) 03/09/21 03/09/21 03/10/21 16:55 21:50 09:06 WBC RBC Hgb Hct MCV MCH MCHC RDW Plt Count MPV Immature Gran % (Auto) Neut % (Auto) Lymph % (Auto) [place] % (Auto) Eos % (Auto) Baso % (Auto) Lymph # (Auto) [place] # (Auto) Eos # (Auto) Baso # (Auto) Abs Immat Gran (auto) Absolute Neuts (auto) Absolute Nucleated RBC Nucleated RBC % (auto) D-Dimer Sodium Potassium Chloride Carbon Dioxide Anion Gap BUN Creatinine Estim Creat Clear Calc Estimated GFR POC Glucose 138 H 169 H 146 H Random Glucose Estimat Average Glucose Hemoglobin A1c % Lactic Acid Calcium Magnesium Total Bilirubin Direct Bilirubin AST ALT Alkaline Phosphatase Ammonia Lactate Dehydrogenase Total Creatine Kinase C-Reactive Protein B-Natriuretic Peptide NT-Pro-B Natriuret Pep Total Protein Albumin Vitamin B12 Folate Procalcitonin Urine Color Urine Appearance Urine pH Ur Specific [place] Urine Protein Urine Glucose (UA) Urine Ketones Urine Blood Urine Nitrite Ur Leukocyte Esterase Urine RBC Urine WBC Ur Squamous Epith Cells Urine Bacteria Hyaline Casts Granular Casts Urine Mucus Ethyl Alcohol COVID-19 (JUDITH) COVID-19 Clin Com Hep Bs Antigen Hep Bs Antibody Hep B Core Total Ab Hepatitis C Ab (EIA) 03/10/21 03/10/21 03/10/21 11:37 12:34 16:34 WBC RBC Hgb Hct MCV MCH MCHC RDW Plt Count MPV Immature Gran % (Auto) Neut % (Auto) Lymph % (Auto) [place] % (Auto) Eos % (Auto) Baso % (Auto) Lymph # (Auto) [place] # (Auto) Eos # (Auto) Baso # (Auto) Abs Immat Gran (auto) Absolute Neuts (auto) Absolute Nucleated RBC Nucleated RBC % (auto) D-Dimer Sodium 144 Potassium 3.5 Chloride 109 H Carbon Dioxide 24 Anion Gap 15 BUN 22 H Creatinine 0.98 Estim Creat Clear Calc 103.0 Estimated GFR > 60 POC Glucose 184 H 157 H Random Glucose 215 H D Estimat Average Glucose Hemoglobin A1c % Lactic Acid Calcium 9.8 D Magnesium Total Bilirubin Direct Bilirubin AST ALT Alkaline Phosphatase Ammonia Lactate Dehydrogenase Total Creatine Kinase C-Reactive Protein B-Natriuretic Peptide NT-Pro-B Natriuret Pep Total Protein Albumin Vitamin B12 Folate Procalcitonin Urine Color Urine Appearance Urine pH Ur Specific [place] Urine Protein Urine Glucose (UA) Urine Ketones Urine Blood Urine Nitrite Ur Leukocyte Esterase Urine RBC Urine WBC Ur Squamous Epith Cells Urine Bacteria Hyaline Casts Granular Casts Urine Mucus Ethyl Alcohol COVID-19 (JUDITH) COVID-19 Clin Com Hep Bs Antigen Hep Bs Antibody Hep B Core Total Ab Hepatitis C Ab (EIA) 03/10/21 03/11/21 03/11/21 21:28 07:57 08:17 WBC RBC Hgb Hct MCV MCH MCHC RDW Plt Count MPV Immature Gran % (Auto) Neut % (Auto) Lymph % (Auto) [place] % (Auto) Eos % (Auto) Baso % (Auto) Lymph # (Auto) [place] # (Auto) Eos # (Auto) Baso # (Auto) Abs Immat Gran (auto) Absolute Neuts (auto) Absolute Nucleated RBC Nucleated RBC % (auto) D-Dimer Sodium 142 Potassium 3.1 L Chloride 106 Carbon Dioxide 27 Anion Gap 12 BUN 19 H Creatinine 0.85 Estim Creat Clear Calc 118.8 Estimated GFR > 60 POC Glucose 285 H 146 H Random Glucose 156 H Estimat Average Glucose Hemoglobin A1c % Lactic Acid Calcium 9.0 D Magnesium Total Bilirubin Direct Bilirubin AST ALT Alkaline Phosphatase Ammonia Lactate Dehydrogenase Total Creatine Kinase C-Reactive Protein B-Natriuretic Peptide NT-Pro-B Natriuret Pep Total Protein Albumin Vitamin B12 Folate Procalcitonin Urine Color Urine Appearance Urine pH Ur Specific [place] Urine Protein Urine Glucose (UA) Urine Ketones Urine Blood Urine Nitrite Ur Leukocyte Esterase Urine RBC Urine WBC Ur Squamous Epith Cells Urine Bacteria Hyaline Casts Granular Casts Urine Mucus Ethyl Alcohol COVID-19 (JUDITH) COVID-19 Clin Com Hep Bs Antigen Hep Bs Antibody Hep B Core Total Ab Hepatitis C Ab (EIA) 03/11/21 03/11/21 03/11/21 12:05 16:48 20:35 WBC RBC Hgb Hct MCV MCH MCHC RDW Plt Count MPV Immature Gran % (Auto) Neut % (Auto) Lymph % (Auto) [place] % (Auto) Eos % (Auto) Baso % (Auto) Lymph # (Auto) [place] # (Auto) Eos # (Auto) Baso # (Auto) Abs Immat Gran (auto) Absolute Neuts (auto) Absolute Nucleated RBC Nucleated RBC % (auto) D-Dimer Sodium Potassium Chloride Carbon Dioxide Anion Gap BUN Creatinine Estim Creat Clear Calc Estimated GFR POC Glucose 214 H 143 H 241 H Random Glucose Estimat Average Glucose Hemoglobin A1c % Lactic Acid Calcium Magnesium Total Bilirubin Direct Bilirubin AST ALT Alkaline Phosphatase Ammonia Lactate Dehydrogenase Total Creatine Kinase C-Reactive Protein B-Natriuretic Peptide NT-Pro-B Natriuret Pep Total Protein Albumin Vitamin B12 Folate Procalcitonin Urine Color Urine Appearance Urine pH Ur Specific [place] Urine Protein Urine Glucose (UA) Urine Ketones Urine Blood Urine Nitrite Ur Leukocyte Esterase Urine RBC Urine WBC Ur Squamous Epith Cells Urine Bacteria Hyaline Casts Granular Casts Urine Mucus Ethyl Alcohol COVID-19 (JUDITH) COVID-19 Clin Com Hep Bs Antigen Hep Bs Antibody Hep B Core Total Ab Hepatitis C Ab (EIA) 03/12/21 03/12/21 03/12/21 06:38 08:02 12:00 WBC RBC Hgb Hct MCV MCH MCHC RDW Plt Count MPV Immature Gran % (Auto) Neut % (Auto) Lymph % (Auto) [place] % (Auto) Eos % (Auto) Baso % (Auto) Lymph # (Auto) [place] # (Auto) Eos # (Auto) Baso # (Auto) Abs Immat Gran (auto) Absolute Neuts (auto) Absolute Nucleated RBC Nucleated RBC % (auto) D-Dimer Sodium 144 Potassium 3.4 Chloride 108 Carbon Dioxide 27 Anion Gap 12 BUN 16 Creatinine 0.86 Estim Creat Clear Calc 130.7 Estimated GFR > 60 POC Glucose 175 H 123 H Random Glucose 147 H Estimat Average Glucose Hemoglobin A1c % Lactic Acid Calcium 8.9 Magnesium Total Bilirubin 0.6 Direct Bilirubin AST 31 ALT 55 H Alkaline Phosphatase 84 Ammonia Lactate Dehydrogenase Total Creatine Kinase C-Reactive Protein B-Natriuretic Peptide NT-Pro-B Natriuret Pep Total Protein 5.6 L Albumin 3.8 Vitamin B12 Folate Procalcitonin Urine Color Urine Appearance Urine pH Ur Specific [place] Urine Protein Urine Glucose (UA) Urine Ketones Urine Blood Urine Nitrite Ur Leukocyte Esterase Urine RBC Urine WBC Ur Squamous Epith Cells Urine Bacteria Hyaline Casts Granular Casts Urine Mucus Ethyl Alcohol COVID-19 (JUDITH) COVID-19 Clin Com Hep Bs Antigen Hep Bs Antibody Hep B Core Total Ab Hepatitis C Ab (EIA) 03/12/21 03/12/21 03/13/21 17:25 19:57 09:17 WBC RBC Hgb Hct MCV MCH MCHC RDW Plt Count MPV Immature Gran % (Auto) Neut % (Auto) Lymph % (Auto) [place] % (Auto) Eos % (Auto) Baso % (Auto) Lymph # (Auto) [place] # (Auto) Eos # (Auto) Baso # (Auto) Abs Immat Gran (auto) Absolute Neuts (auto) Absolute Nucleated RBC Nucleated RBC % (auto) D-Dimer Sodium Potassium Chloride Carbon Dioxide Anion Gap BUN Creatinine Estim Creat Clear Calc Estimated GFR POC Glucose 181 H 191 H 130 H Random Glucose Estimat Average Glucose Hemoglobin A1c % Lactic Acid Calcium Magnesium Total Bilirubin Direct Bilirubin AST ALT Alkaline Phosphatase Ammonia Lactate Dehydrogenase Total Creatine Kinase C-Reactive Protein B-Natriuretic Peptide NT-Pro-B Natriuret Pep Total Protein Albumin Vitamin B12 Folate Procalcitonin Urine Color Urine Appearance Urine pH Ur Specific [place] Urine Protein Urine Glucose (UA) Urine Ketones Urine Blood Urine Nitrite Ur Leukocyte Esterase Urine RBC Urine WBC Ur Squamous Epith Cells Urine Bacteria Hyaline Casts Granular Casts Urine Mucus Ethyl Alcohol COVID-19 (JUDITH) COVID-19 Clin Com Hep Bs Antigen Hep Bs Antibody Hep B Core Total Ab Hepatitis C Ab (EIA) 03/13/21 03/13/21 03/13/21 12:29 16:31 21:12 WBC RBC Hgb Hct MCV MCH MCHC RDW Plt Count MPV Immature Gran % (Auto) Neut % (Auto) Lymph % (Auto) [place] % (Auto) Eos % (Auto) Baso % (Auto) Lymph # (Auto) [place] # (Auto) Eos # (Auto) Baso # (Auto) Abs Immat Gran (auto) Absolute Neuts (auto) Absolute Nucleated RBC Nucleated RBC % (auto) D-Dimer Sodium Potassium Chloride Carbon Dioxide Anion Gap BUN Creatinine Estim Creat Clear Calc Estimated GFR POC Glucose 277 H 265 H 130 H Random Glucose Estimat Average Glucose Hemoglobin A1c % Lactic Acid Calcium Magnesium Total Bilirubin Direct Bilirubin AST ALT Alkaline Phosphatase Ammonia Lactate Dehydrogenase Total Creatine Kinase C-Reactive Protein B-Natriuretic Peptide NT-Pro-B Natriuret Pep Total Protein Albumin Vitamin B12 Folate Procalcitonin Urine Color Urine Appearance Urine pH Ur Specific [place] Urine Protein Urine Glucose (UA) Urine Ketones Urine Blood Urine Nitrite Ur Leukocyte Esterase Urine RBC Urine WBC Ur Squamous Epith Cells Urine Bacteria Hyaline Casts Granular Casts Urine Mucus Ethyl Alcohol COVID-19 (JUDITH) COVID-19 Clin Com Hep Bs Antigen Hep Bs Antibody Hep B Core Total Ab Hepatitis C Ab (EIA) 03/14/21 03/14/21 03/15/21 08:52 21:35 08:33 WBC RBC Hgb Hct MCV MCH MCHC RDW Plt Count MPV Immature Gran % (Auto) Neut % (Auto) Lymph % (Auto) [place] % (Auto) Eos % (Auto) Baso % (Auto) Lymph # (Auto) [place] # (Auto) Eos # (Auto) Baso # (Auto) Abs Immat Gran (auto) Absolute Neuts (auto) Absolute Nucleated RBC Nucleated RBC % (auto) D-Dimer Sodium Potassium Chloride Carbon Dioxide Anion Gap BUN Creatinine Estim Creat Clear Calc Estimated GFR POC Glucose 163 H 140 H 170 H Random Glucose Estimat Average Glucose Hemoglobin A1c % Lactic Acid Calcium Magnesium Total Bilirubin Direct Bilirubin AST ALT Alkaline Phosphatase Ammonia Lactate Dehydrogenase Total Creatine Kinase C-Reactive Protein B-Natriuretic Peptide NT-Pro-B Natriuret Pep Total Protein Albumin Vitamin B12 Folate Procalcitonin Urine Color Urine Appearance Urine pH Ur Specific [place] Urine Protein Urine Glucose (UA) Urine Ketones Urine Blood Urine Nitrite Ur Leukocyte Esterase Urine RBC Urine WBC Ur Squamous Epith Cells Urine Bacteria Hyaline Casts Granular Casts Urine Mucus Ethyl Alcohol COVID-19 (JUDITH) COVID-19 Clin Com Hep Bs Antigen Hep Bs Antibody Hep B Core Total Ab Hepatitis C Ab (EIA) 03/15/21 03/15/21 03/16/21 17:26 20:20 07:07 WBC RBC Hgb Hct MCV MCH MCHC RDW Plt Count MPV Immature Gran % (Auto) Neut % (Auto) Lymph % (Auto) [place] % (Auto) Eos % (Auto) Baso % (Auto) Lymph # (Auto) [place] # (Auto) Eos # (Auto) Baso # (Auto) Abs Immat Gran (auto) Absolute Neuts (auto) Absolute Nucleated RBC Nucleated RBC % (auto) D-Dimer Sodium Potassium Chloride Carbon Dioxide Anion Gap BUN Creatinine Estim Creat Clear Calc Estimated GFR POC Glucose 130 H 227 H 162 H Random Glucose Estimat Average Glucose Hemoglobin A1c % Lactic Acid Calcium Magnesium Total Bilirubin Direct Bilirubin AST ALT Alkaline Phosphatase Ammonia Lactate Dehydrogenase Total Creatine Kinase C-Reactive Protein B-Natriuretic Peptide NT-Pro-B Natriuret Pep Total Protein Albumin Vitamin B12 Folate Procalcitonin Urine Color Urine Appearance Urine pH Ur Specific [place] Urine Protein Urine Glucose (UA) Urine Ketones Urine Blood Urine Nitrite Ur Leukocyte Esterase Urine RBC Urine WBC Ur Squamous Epith Cells Urine Bacteria Hyaline Casts Granular Casts Urine Mucus Ethyl Alcohol COVID-19 (JUDITH) COVID-19 Clin Com Hep Bs Antigen Hep Bs Antibody Hep B Core Total Ab Hepatitis C Ab (EIA) 03/16/21 03/16/21 03/16/21 12:23 16:42 21:18 WBC RBC Hgb Hct MCV MCH MCHC RDW Plt Count MPV Immature Gran % (Auto) Neut % (Auto) Lymph % (Auto) [place] % (Auto) Eos % (Auto) Baso % (Auto) Lymph # (Auto) [place] # (Auto) Eos # (Auto) Baso # (Auto) Abs Immat Gran (auto) Absolute Neuts (auto) Absolute Nucleated RBC Nucleated RBC % (auto) D-Dimer Sodium Potassium Chloride Carbon Dioxide Anion Gap BUN Creatinine Estim Creat Clear Calc Estimated GFR POC Glucose 145 H 171 H 179 H Random Glucose Estimat Average Glucose Hemoglobin A1c % Lactic Acid Calcium Magnesium Total Bilirubin Direct Bilirubin AST ALT Alkaline Phosphatase Ammonia Lactate Dehydrogenase Total Creatine Kinase C-Reactive Protein B-Natriuretic Peptide NT-Pro-B Natriuret Pep Total Protein Albumin Vitamin B12 Folate Procalcitonin Urine Color Urine Appearance Urine pH Ur Specific [place] Urine Protein Urine Glucose (UA) Urine Ketones Urine Blood Urine Nitrite Ur Leukocyte Esterase Urine RBC Urine WBC Ur Squamous Epith Cells Urine Bacteria Hyaline Casts Granular Casts Urine Mucus Ethyl Alcohol COVID-19 (JUDITH) COVID-19 Clin Com Hep Bs Antigen Hep Bs Antibody Hep B Core Total Ab Hepatitis C Ab (EIA) 03/17/21 03/17/21 03/17/21 05:57 12:32 16:39 WBC RBC Hgb Hct MCV MCH MCHC RDW Plt Count MPV Immature Gran % (Auto) Neut % (Auto) Lymph % (Auto) [place] % (Auto) Eos % (Auto) Baso % (Auto) Lymph # (Auto) [place] # (Auto) Eos # (Auto) Baso # (Auto) Abs Immat Gran (auto) Absolute Neuts (auto) Absolute Nucleated RBC Nucleated RBC % (auto) D-Dimer Sodium Potassium Chloride Carbon Dioxide Anion Gap BUN Creatinine Estim Creat Clear Calc Estimated GFR POC Glucose 138 H 175 H 164 H Random Glucose Estimat Average Glucose Hemoglobin A1c % Lactic Acid Calcium Magnesium Total Bilirubin Direct Bilirubin AST ALT Alkaline Phosphatase Ammonia Lactate Dehydrogenase Total Creatine Kinase C-Reactive Protein B-Natriuretic Peptide NT-Pro-B Natriuret Pep Total Protein Albumin Vitamin B12 Folate Procalcitonin Urine Color Urine Appearance Urine pH Ur Specific [place] Urine Protein Urine Glucose (UA) Urine Ketones Urine Blood Urine Nitrite Ur Leukocyte Esterase Urine RBC Urine WBC Ur Squamous Epith Cells Urine Bacteria Hyaline Casts Granular Casts Urine Mucus Ethyl Alcohol COVID-19 (JUDITH) COVID-19 Clin Com Hep Bs Antigen Hep Bs Antibody Hep B Core Total Ab Hepatitis C Ab (EIA) 03/17/21 03/18/21 03/18/21 20:43 06:07 16:26 WBC RBC Hgb Hct MCV MCH MCHC RDW Plt Count MPV Immature Gran % (Auto) Neut % (Auto) Lymph % (Auto) [place] % (Auto) Eos % (Auto) Baso % (Auto) Lymph # (Auto) [place] # (Auto) Eos # (Auto) Baso # (Auto) Abs Immat Gran (auto) Absolute Neuts (auto) Absolute Nucleated RBC Nucleated RBC % (auto) D-Dimer Sodium Potassium Chloride Carbon Dioxide Anion Gap BUN Creatinine Estim Creat Clear Calc Estimated GFR POC Glucose 183 H 165 H 177 H Random Glucose Estimat Average Glucose Hemoglobin A1c % Lactic Acid Calcium Magnesium Total Bilirubin Direct Bilirubin AST ALT Alkaline Phosphatase Ammonia Lactate Dehydrogenase Total Creatine Kinase C-Reactive Protein B-Natriuretic Peptide NT-Pro-B Natriuret Pep Total Protein Albumin Vitamin B12 Folate Procalcitonin Urine Color Urine Appearance Urine pH Ur Specific [place] Urine Protein Urine Glucose (UA) Urine Ketones Urine Blood Urine Nitrite Ur Leukocyte Esterase Urine RBC Urine WBC Ur Squamous Epith Cells Urine Bacteria Hyaline Casts Granular Casts Urine Mucus Ethyl Alcohol COVID-19 (JUDITH) COVID-19 Clin Com Hep Bs Antigen Hep Bs Antibody Hep B Core Total Ab Hepatitis C Ab (EIA) 03/18/21 03/19/21 20:03 05:56 WBC RBC Hgb Hct MCV MCH MCHC RDW Plt Count MPV Immature Gran % (Auto) Neut % (Auto) Lymph % (Auto) [place] % (Auto) Eos % (Auto) Baso % (Auto) Lymph # (Auto) [place] # (Auto) Eos # (Auto) Baso # (Auto) Abs Immat Gran (auto) Absolute Neuts (auto) Absolute Nucleated RBC Nucleated RBC % (auto) D-Dimer Sodium Potassium Chloride Carbon Dioxide Anion Gap BUN Creatinine Estim Creat Clear Calc Estimated GFR POC Glucose 229 H 171 H Random Glucose Estimat Average Glucose Hemoglobin A1c % Lactic Acid Calcium Magnesium Total Bilirubin Direct Bilirubin AST ALT Alkaline Phosphatase Ammonia Lactate Dehydrogenase Total Creatine Kinase C-Reactive Protein B-Natriuretic Peptide NT-Pro-B Natriuret Pep Total Protein Albumin Vitamin B12 Folate Procalcitonin Urine Color Urine Appearance Urine pH Ur Specific [place] Urine Protein Urine Glucose (UA) Urine Ketones Urine Blood Urine Nitrite Ur Leukocyte Esterase Urine RBC Urine WBC Ur Squamous Epith Cells Urine Bacteria Hyaline Casts Granular Casts Urine Mucus Ethyl Alcohol COVID-19 (JUDITH) COVID-19 Clin Com Hep Bs Antigen Hep Bs Antibody Hep B Core Total Ab Hepatitis C Ab (EIA) Assessment and Plan Assessment Anesthesia Assessment: Anesthesia Plan Discussed and Chart Reviewed Final Anesthetic Review Family History of Problems with Anesthesia: No History of Problems with Anesthesia: No NPO: Yes ASA Class: II Final Preanesthetic Review: No Changes in Pt Med Stat, Meds/Allgs Chart Reviewed, Consent Obtained/Reviewed and Anes Risks/Benef Reviewed Patient Risk: Low Procedure Risk: Low Assessment/Block/Sedation in SS: Assess/Block/Sedation-SS Anesthetic Plan Anesthetic Plan: GA Disposition: Standard PACU
[2021-03-19] MEDS: Multivitamin TABLET 1 TAB PO (08:38)
[2021-03-19] MEDS: OLANZapine 2.5 MG TABLET PO ×2 (08:38→20:57)
[2021-03-19] MEDS: LORazepam 1 MG TABLET 2 MG PO ×2 (08:38→20:57)
[2021-03-19 11:47] LABS: Glucose, Whole Blood 170 mg/dL (60-115)
[2021-03-19] MEDS: Insulin Lispro 100 UNIT/ML 3 ML VIAL SUBCUT ×3 (12:26→21:12)
[2021-03-19 16:47] LABS: Glucose, Whole Blood 230 mg/dL (60-115)
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
[2021-03-19 20:54] LABS: Glucose, Whole Blood 203 mg/dL (60-115)
[2021-03-19] MEDS: Atorvastatin Calcium 20 MG TABLET PO (20:57)
[2021-03-20 06:33] LABS: Glucose, Whole Blood 179 mg/dL (60-115)
[2021-03-20 08:11] LABS: Glucose, Whole Blood 172 mg/dL (60-115)
[2021-03-20] MEDS: Multivitamin TABLET 1 TAB PO (08:52)
[2021-03-20] MEDS: metFORMIN HCl 1,000 MG TABLET 1000 MG PO ×2 (08:52→16:59)
[2021-03-20] MEDS: OLANZapine 2.5 MG TABLET PO (08:52)
[2021-03-20] MEDS: LORazepam 1 MG TABLET 2 MG PO (08:52)
[2021-03-20] MEDS: Insulin Lispro 100 UNIT/ML 3 ML VIAL SUBCUT ×2 (08:53→11:37)
[2021-03-20 11:39] LABS: Glucose, Whole Blood 388 mg/dL (60-115)
--- NOTE | 2021-03-20 11:59 | HO.PSYCHPN ---
Subjective Subjective Date of Service: 03/20/21 Reason For Visit: acute psychosis, pre ECT assessment Subjective Notes: Section 7 Interim History: 50 yo MWM discussing complicated dream about cremation and complicated drawing very complex thoughts and associations which are not very followable doesn't get that he is getting ECT- says his put him in hospital Medication Compliance: Yes Side effects from medications: No (not clear he doesn't really answer questions directly ) Attending Groups: No Review of Systems Acute medical concerns: Yes IDDM Mental Status Exam Mental Status Exam Narrative: wearing a mask , intensely verbal - Patient Appearance: Appropriate Patient Orientation: Person, Place, Time and Situation Level of Consciousness: Awake Patient Behavior: Talkative, Good Eye Contact and Pacing Mood Description: Suspicious, Fearful and Expansive Affect Description: Expansive Ability to Follow Directions: Fair Speech Pattern: Rambling, Rapid, Excessive and Pressured Delusions: Paranoid Ideation and Grandiose Thought Process: Racing Thought Content: positive for Flight of Ideas, positive for Preoccupation and positive for Loose Associations Abnormal Motor Activity Signs and Symptoms: Hyperactivity Judgement: Poor Judgement and Insight: no sense that what he is saying makes not sense, and is not cohesive story in any way Diagnostics Vital Signs (24Hr): Vital Signs - 24 hr 03/19/21 19:40 Temperature 96.8 F Pulse Rate 114 H Blood Pressure 134/88 Body Mass Index 30.3 Labs Results: 03/09/21 08:18 03/12/21 08:02 Labs: Laboratory Results - last 48 hr 03/18/21 03/18/21 03/19/21 16:26 20:03 05:56 POC Glucose 177 H 229 H 171 H 03/19/21 03/19/21 03/19/21 11:43 16:33 20:49 POC Glucose 170 H 230 H 203 H 03/20/21 03/20/21 03/20/21 06:28 08:02 11:24 POC Glucose 179 H 172 H 388 H* Imaging Radiology Impressions: ITS Impressions Chest X-Ray 03/07/21 20:18 IMPRESSION: Mild patchy opacity left lower lobe retrocardiac area. Question artifact versus infiltrate. Consider repeat 2 views . Chest CTA 03/08/21 19:02 IMPRESSION: No evidence of pulmonary emboli. Suboptimal study probably because of marked motion artifact. VTE: negative, but limited as described above. Head CT 03/08/21 19:02 IMPRESSION: No acute intracranial abnormality. Medications Medications Current Medications Acetaminophen (Acetaminophen 325 Mg Tablet) 650 mg PO Q6H PRN PRN Reason: Headache/Pain Mild Scale (1-3) Acetaminophen (Acetaminophen 325 Mg Tablet) 650 mg PO ONCE PRN PRN Reason: Pain, Mild (Pain Scale 1-3) Al Hydroxide/Mg Hydroxide (Magnesium Hydrox/Alum Hydrox 30 Ml Oral.Susp) 30 ml PO Q6H PRN PRN Reason: Heartburn/Nausea Atorvastatin Calcium (Atorvastatin Calcium 20 Mg Tablet) 20 mg PO BEDTIME [facility] TO [facility] Last Admin: 03/19/21 20:57 Dose: 20 mg Documented by: Glucose (Glucose Gel 15 Gm Gel..Gram.) 15 gm PO Q15M PRN; Protocol PRN Reason: per Hypoglycemia Standing Ord. Insulin Human Lispro (Insulin Lispro 100 Unit/Ml 3 Ml Vial) 0 unit SUBCUT QIDACHS [facility]; Protocol Last Admin: 03/20/21 11:37 Dose: 10 unit Documented by: Lorazepam (Lorazepam 1 Mg Tablet) 2 mg PO BID [facility] Last Admin: 03/20/21 08:52 Dose: 2 mg Documented by: Magnesium Hydroxide (Milk Of Magnesia 30 Ml Oral.Susp) 30 ml PO DAILY PRN PRN Reason: Constipation Metformin HCl (Metformin Hcl 1,000 Mg Tablet) 1,000 mg PO BIDWM [facility] Last Admin: 03/20/21 08:52 Dose: 1,000 mg Documented by: Multivitamins/Vitamin C (Multivitamin Tablet) 1 tab PO DAILY [facility] Last Admin: 03/20/21 08:52 Dose: 1 tab Documented by: Nicotine Polacrilex (Nicotine Polacrilex 2 Mg Gum) 4 mg BUCCAL Q2H PRN PRN Reason: Nicotine Cravings Last Admin: 03/09/21 09:46 Dose: 4 mg Documented by: Olanzapine (Olanzapine 2.5 Mg Tablet) 2.5 mg PO BID [facility] Last Admin: 03/20/21 08:52 Dose: 2.5 mg Documented by: Allergies Allergies Allergy/AdvReac Type Severity Reaction Status Date / Time No Known Allergies Allergy Unverified 03/05/20 17:38 [No Known Allergies*] Assessment & Plan Assessment & Plan (1) Type 2 diabetes mellitus: Status: Chronic Code(s): E11.9 - Type 2 diabetes mellitus without complications Assessment and Plan: 50 yo male with bipolar/psychosis undergoing ECT - and medication was catatonic now xs verbal Legal Pt on sec 7 undergoing ECT but doesn't retain that he is also taking PO meds Greater than 50% of the session was spent on counseling and/or coordination of care Patient educated on: medication risk/benefits, ECT and medical condition Informed Consent: further education needed Reason for contiued inpatient stay Substantial Risk for: inability to function, rapid decompensation and med/psych decompensation
--- NOTE | 2021-03-20 12:09 | PC.NURSE ---
Pt's POC 388, 10 units given per sliding scale. Hospitalist, Whit Castro, notified, no additional orders.
[2021-03-20 16:43] LABS: Glucose, Whole Blood 135 mg/dL (60-115)
[2021-03-20 20:30] LABS: Glucose, Whole Blood 161 mg/dL (60-115)
[2021-03-21 06:55] LABS: Glucose, Whole Blood 174 mg/dL (60-115)
--- NOTE | 2021-03-21 10:32 | P.PNPSI_ITS ---
Subjective Subjective Date of Service: 03/21/21 Reason For Visit: acute psychosis, pre ECT assessment Subjective Notes: Section 7 Interim History: refused am meds and insulin- not clear why- keeps repeating soemthing about going out the door and then elevators to s omething down stairs- maybe ECT? told him that would be tomorrow bs was 179 Medication Compliance: Intermittent Side effects from medications: No Attending Groups: No Review of Systems Acute medical concerns: No Medical Review of Systems: unchanged Mental Status Exam Mental Status Exam Patient Appearance: Appropriate Patient Orientation: Person, Place and Situation Level of Consciousness: Awake Patient Behavior: Distractible and Confused Mood Description: Calm Affect Description: Expansive Ability to Follow Directions: Poor Speech Pattern: Long Pauses Delusions: Grandiose and Bizarre Thought Process: Disoriented and Illogical Thought Content: positive for Thought Blocking and positive for Disorganized Judgement: Poor Diagnostics Vital Signs (24Hr): Body Mass Index 30.3 Labs Results: 03/09/21 08:18 03/12/21 08:02 Labs: Laboratory Results - last 48 hr 03/19/21 03/19/21 03/19/21 11:43 16:33 20:49 POC Glucose 170 H 230 H 203 H 03/20/21 03/20/21 03/20/21 06:28 08:02 11:24 POC Glucose 179 H 172 H 388 H* 03/20/21 03/20/21 03/21/21 16:35 20:23 06:49 POC Glucose 135 H 161 H 174 H Imaging Radiology Impressions: ITS Impressions Chest X-Ray 03/07/21 20:18 IMPRESSION: Mild patchy opacity left lower lobe retrocardiac area. Question artifact versus infiltrate. Consider repeat 2 views . Chest CTA 03/08/21 19:02 IMPRESSION: No evidence of pulmonary emboli. Suboptimal study probably because of marked motion artifact. VTE: negative, but limited as described above. Head CT 03/08/21 19:02 IMPRESSION: No acute intracranial abnormality. Medications Medications Current Medications Acetaminophen (Acetaminophen 325 Mg Tablet) 650 mg PO Q6H PRN PRN Reason: Headache/Pain Mild Scale (1-3) Acetaminophen (Acetaminophen 325 Mg Tablet) 650 mg PO ONCE PRN PRN Reason: Pain, Mild (Pain Scale 1-3) Al Hydroxide/Mg Hydroxide (Magnesium Hydrox/Alum Hydrox 30 Ml Oral.Susp) 30 ml PO Q6H PRN PRN Reason: Heartburn/Nausea Atorvastatin Calcium (Atorvastatin Calcium 20 Mg Tablet) 20 mg PO BEDTIME [facility] Last Admin: 03/20/21 21:01 Dose: Not Given Documented by: Glucose (Glucose Gel 15 Gm Gel..Gram.) 15 gm PO Q15M PRN; Protocol PRN Reason: per Hypoglycemia Standing Ord. Insulin Human Lispro (Insulin Lispro 100 Unit/Ml 3 Ml Vial) 0 unit SUBCUT QIDACHS [facility]; Protocol Last Admin: 03/21/21 09:57 Dose: Not Given Documented by: Lorazepam (Lorazepam 1 Mg Tablet) 2 mg PO BID [facility] Last Admin: 03/21/21 09:58 Dose: Not Given Documented by: Magnesium Hydroxide (Milk Of Magnesia 30 Ml Oral.Susp) 30 ml PO DAILY PRN PRN Reason: Constipation Metformin HCl (Metformin Hcl 1,000 Mg Tablet) 1,000 mg PO BIDWM [facility] Last Admin: 03/21/21 09:58 Dose: Not Given Documented by: Multivitamins/Vitamin C (Multivitamin Tablet) 1 tab PO DAILY [facility] Last Admin: 03/21/21 09:58 Dose: Not Given Documented by: Nicotine Polacrilex (Nicotine Polacrilex 2 Mg Gum) 4 mg BUCCAL Q2H PRN PRN Reason: Nicotine Cravings Last Admin: 03/09/21 09:46 Dose: 4 mg Documented by: Olanzapine (Olanzapine 2.5 Mg Tablet) 2.5 mg PO BID [facility] Last Admin: 03/21/21 09:58 Dose: Not Given Documented by: Allergies Allergies Allergy/AdvReac Type Severity Reaction Status Date / Time No Known Allergies Allergy Unverified 03/05/20 17:38 [No Known Allergies*] Assessment & Plan Assessment & Plan (1) Type 2 diabetes mellitus: Status: Chronic Code(s): E11.9 - Type 2 diabetes mellitus without complications Assessment and Plan: 50 yo MWM with psychotic thinking pending repeat ECT tomorrow - may have been thinking he needed to be npo for ECT today? but since his thoughts are so unclearly communicated .. he appears pleasant and not upset bs was not too high Legal Pt on sec 7 undergoing ECT and intermittently compliant with medication Greater than 50% of the session was spent on counseling and/or coordination of care Patient educated on: medication risk/benefits and ECT Informed Consent: does not understand and further education needed Reason for contiued inpatient stay Substantial Risk for: inability to function and rapid decompensation
[2021-03-21 10:55] VITALS: BP 126/75; PULSE 104; RESP 16; TEMP 36.2; O2SAT 96
[2021-03-21 12:27] LABS: Glucose, Whole Blood 238 mg/dL (60-115)
[2021-03-21] MEDS: Insulin Lispro 100 UNIT/ML 3 ML VIAL SUBCUT ×3 (12:35→20:34)
[2021-03-21 17:02] LABS: Glucose, Whole Blood 178 mg/dL (60-115)
[2021-03-21] MEDS: metFORMIN HCl 1,000 MG TABLET 1000 MG PO (17:25)
[2021-03-21 19:45] VITALS: BP 143/33; PULSE 97; TEMP 36.2
[2021-03-21 20:30] LABS: Glucose, Whole Blood 157 mg/dL (60-115)
[2021-03-21] MEDS: Atorvastatin Calcium 20 MG TABLET PO (20:33)
[2021-03-21] MEDS: OLANZapine 2.5 MG TABLET PO (20:33)
[2021-03-22] VITALS (8 sets, daily range): BP systolic 119–137; BP diastolic 72–90; PULSE 77–117; RESP 16–20; TEMP 36.2–36.7; O2SAT 95–98; BMI 31.6
[2021-03-22 06:25] LABS: Glucose, Whole Blood 195 mg/dL (60-115)
--- NOTE | 2021-03-22 07:01 | MHC.SHP ---
Pre-Procedural Eval Section A Date of Service: 03/22/21 The patient is an INPATIENT: Yes Changes since office visit: No Cold of Flu in the past 2 weeks, No New Medical Problems, No Changes in Medication and No Patient answered all questions The History & Physical has been completed within 30 days and I have reviewed it.: Yes Section B Chief Complaint: acute psychosis, pre ECT assessment Allergies: Allergies Allergy/AdvReac Type Severity Reaction Status Date / Time No Known Allergies Allergy Unverified 03/05/20 17:38 [No Known Allergies*] Plan I have reviewed the history and physical and performed a pertinent physical examination on my patient. No changes have occurred unless specified.
--- NOTE | 2021-03-22 07:02 | HO.ANESPROP2 ---
[facility] Active Problems Active Problems: All Active Problems (Updated 03/12/21 @ 15:56 by Cahng Mason DO) Pre-op evaluation (Acute) Hypernatremia (Acute) Hypokalemia, inadequate intake (Acute) Preop cardiovascular exam (Acute) Rhabdomyolysis (Acute) Bipolar I disorder with catatonia (Acute) Catatonic excitement (Acute) Bipolar disorder (Acute) Type 2 diabetes mellitus (Chronic) Past Medical History Medical History Bipolar 1 disorder Depression Diabetes Family History Family history of problems with anesthesia: No Surgical History History of Problems with Anesthesia: No Social History Social History Household Members: Spouse Housing: Unknown / Unable to assess Do you presently have visiting nurse or other home services: No Unable to assess alcohol history related to: Unable to respond and Unknown Patient Tobacco Use Status: Tobacco use Unknown Smoked in Last 30 Days: No Use of substances other than those prescribed or required for medical reasons: Unable to respond Currently Displaying Signs/Symptoms of Drug Intoxication Withdrawal: No Are you DNR?: No Advance Directives: No Advance Directives Information Provided: No Advance Directives on File: No Do you have thoughts of harming others: None Do you have a plan to hurt others: No Plan Recently lost weight without trying: No Nutrition Risks: Difficulty chewing and Difficulty swallowing Poor oral hygiene: Yes service: No Sexual orientation: Straight/Heterosexual Meds Allergies Allergy/AdvReac Type Severity Reaction Status Date / Time No Known Allergies Allergy Unverified 03/05/20 17:38 [No Known Allergies*] Active Medications: Current Medications Acetaminophen (Acetaminophen 325 Mg Tablet) 650 mg PO Q6H PRN PRN Reason: Headache/Pain Mild Scale (1-3) Acetaminophen (Acetaminophen 325 Mg Tablet) 650 mg PO ONCE PRN PRN Reason: Pain, Mild (Pain Scale 1-3) Al Hydroxide/Mg Hydroxide (Magnesium Hydrox/Alum Hydrox 30 Ml Oral.Susp) 30 ml PO Q6H PRN PRN Reason: Heartburn/Nausea Atorvastatin Calcium (Atorvastatin Calcium 20 Mg Tablet) 20 mg PO BEDTIME KATEY Last Admin: 03/21/21 20:33 Dose: 20 mg Documented by: Glucose (Glucose Gel 15 Gm Gel..Gram.) 15 gm PO Q15M PRN; Protocol PRN Reason: per Hypoglycemia Standing Ord. Lactated Ringer's (Lr) 1,000 mls @ 50 mls/hr IVCONT .Q20H [facility] Insulin Human Lispro (Insulin Lispro 100 Unit/Ml 3 Ml Vial) 0 unit SUBCUT QIDACHS [facility]; Protocol Last Admin: 03/21/21 20:34 Dose: 2 unit Documented by: Lorazepam (Lorazepam 1 Mg Tablet) 2 mg PO BID [facility] Last Admin: 03/21/21 15:52 Dose: Not Given Documented by: Magnesium Hydroxide (Milk Of Magnesia 30 Ml Oral.Susp) 30 ml PO DAILY PRN PRN Reason: Constipation Metformin HCl (Metformin Hcl 1,000 Mg Tablet) 1,000 mg PO BIDWM [facility] Last Admin: 03/21/21 17:25 Dose: 1,000 mg Documented by: Multivitamins/Vitamin C (Multivitamin Tablet) 1 tab PO DAILY [facility] Last Admin: 03/21/21 09:58 Dose: Not Given Documented by: Nicotine Polacrilex (Nicotine Polacrilex 2 Mg Gum) 4 mg BUCCAL Q2H PRN PRN Reason: Nicotine Cravings Last Admin: 03/09/21 09:46 Dose: 4 mg Documented by: Olanzapine (Olanzapine 2.5 Mg Tablet) 2.5 mg PO BID [facility] Last Admin: 03/21/21 20:33 Dose: 2.5 mg Documented by: Home Medications Medication Instructions Recorded Confirmed Last Taken Type atorvastatin 20 mg tablet 1 tab PO BEDTIME 03/01/21 03/01/21 02/28/21 History empagliflozin 10 mg tablet 1 tab PO QAM 03/01/21 03/01/21 02/28/21 History (Jardiance) glipizide 10 mg tablet, extended 1 tab PO DAILY 03/01/21 03/01/21 02/28/21 History release 24 hr lorazepam 1 mg tablet 1 mg PO TID 03/01/21 03/01/21 03/01/21 History metformin 1,000 mg tablet 1 tab PO BID 03/01/21 03/01/21 02/28/21 History multivitamin 1 tab PO DAILY 03/01/21 03/01/21 02/28/21 History olanzapine 10 mg tablet 10 mg PO BEDTIME 03/01/21 03/01/21 Unknown History sertraline 100 mg tablet 2 tab PO QAM 03/01/21 03/01/21 03/01/21 History Exam Exam Date and Time: March 22, 2021 0702 Height,Weight and Vital Signs: Height 6 ft 1 in Weight 108.862 kg Last Vital Signs Temp 98.0 F 03/22/21 06:58 Pulse 77 03/22/21 06:58 Resp 16 03/22/21 06:58 BP 129/79 03/22/21 06:58 Pulse Ox 97 03/22/21 06:58 Pertinent Lab Results Pertinent Lab Results: Laboratory Tests 03/01/21 03/01/21 03/01/21 14:37 14:49 14:49 WBC 11.7 H RBC 5.27 Hgb 14.5 Hct 44.2 MCV 83.9 MCH 27.5 MCHC 32.8 RDW 13.9 Plt Count 277 MPV 11.0 Immature Gran % (Auto) 0.6 H Neut % (Auto) 78.6 H Lymph % (Auto) 13.9 L [place] % (Auto) 6.6 Eos % (Auto) 0.0 Baso % (Auto) 0.3 Lymph # (Auto) 1.6 [place] # (Auto) 0.8 Eos # (Auto) 0.0 Baso # (Auto) 0.0 Abs Immat Gran (auto) 0.07 H Absolute Neuts (auto) 9.2 H Absolute Nucleated RBC 0.000 Nucleated RBC % (auto) 0.0 D-Dimer Sodium 143 Potassium 4.0 Chloride 107 Carbon Dioxide 21 L Anion Gap 19 BUN 30 H Creatinine 1.16 Estim Creat Clear Calc 87.0 Estimated GFR > 60 POC Glucose Random Glucose 141 H Estimat Average Glucose Hemoglobin A1c % Lactic Acid Calcium 10.6 H Magnesium Total Bilirubin 0.5 Direct Bilirubin 0.2 AST 22 ALT 46 H Alkaline Phosphatase 105 Ammonia Lactate Dehydrogenase Total Creatine Kinase C-Reactive Protein B-Natriuretic Peptide NT-Pro-B Natriuret Pep Total Protein 8.2 H Albumin 5.5 H Vitamin B12 Folate Procalcitonin Urine Color Urine Appearance Urine pH Ur Specific Ten Sleep Urine Protein Urine Glucose (UA) Urine Ketones Urine Blood Urine Nitrite Ur Leukocyte Esterase Urine RBC Urine WBC Ur Squamous Epith Cells Urine Bacteria Hyaline Casts Granular Casts Urine Mucus Ethyl Alcohol COVID-19 (JUDITH) Negative COVID-19 Clin Com See Note Hep Bs Antigen Hep Bs Antibody Hep B Core Total Ab Hepatitis C Ab (EIA) 03/01/21 03/02/21 03/02/21 14:49 00:59 01:01 WBC RBC Hgb Hct MCV MCH MCHC RDW Plt Count MPV Immature Gran % (Auto) Neut % (Auto) Lymph % (Auto) [place] % (Auto) Eos % (Auto) Baso % (Auto) Lymph # (Auto) [place] # (Auto) Eos # (Auto) Baso # (Auto) Abs Immat Gran (auto) Absolute Neuts (auto) Absolute Nucleated RBC Nucleated RBC % (auto) D-Dimer Sodium Potassium Chloride Carbon Dioxide Anion Gap BUN Creatinine Estim Creat Clear Calc Estimated GFR POC Glucose 155 H 161 H Random Glucose Estimat Average Glucose Hemoglobin A1c % Lactic Acid Calcium Magnesium Total Bilirubin Direct Bilirubin AST ALT Alkaline Phosphatase Ammonia Lactate Dehydrogenase Total Creatine Kinase C-Reactive Protein B-Natriuretic Peptide NT-Pro-B Natriuret Pep Total Protein Albumin Vitamin B12 Folate Procalcitonin Urine Color Urine Appearance Urine pH Ur Specific Ten Sleep Urine Protein Urine Glucose (UA) Urine Ketones Urine Blood Urine Nitrite Ur Leukocyte Esterase Urine RBC Urine WBC Ur Squamous Epith Cells Urine Bacteria Hyaline Casts Granular Casts Urine Mucus Ethyl Alcohol < 10 COVID-19 (JUDITH) COVID-19 Clin Com Hep Bs Antigen Hep Bs Antibody Hep B Core Total Ab Hepatitis C Ab (EIA) 03/02/21 03/03/21 03/03/21 09:30 12:36 12:36 WBC 11.8 H RBC 4.76 Hgb 13.1 L Hct 40.5 L MCV 85.1 MCH 27.5 MCHC 32.3 RDW 14.0 Plt Count 265 MPV 10.6 Immature Gran % (Auto) 0.5 H Neut % (Auto) 74.8 H Lymph % (Auto) 16.6 L [place] % (Auto) 7.8 Eos % (Auto) 0.0 Baso % (Auto) 0.3 Lymph # (Auto) 2.0 [place] # (Auto) 0.9 Eos # (Auto) 0.0 Baso # (Auto) 0.0 Abs Immat Gran (auto) 0.06 H Absolute Neuts (auto) 8.8 H Absolute Nucleated RBC 0.000 Nucleated RBC % (auto) 0.0 D-Dimer Sodium 148 H Potassium 3.5 Chloride 114 H Carbon Dioxide 20 L Anion Gap 18 BUN 33 H Creatinine 1.07 Estim Creat Clear Calc 94.3 Estimated GFR > 60 POC Glucose 214 H Random Glucose Estimat Average Glucose Hemoglobin A1c % Lactic Acid Calcium Magnesium Total Bilirubin Direct Bilirubin AST ALT Alkaline Phosphatase Ammonia Lactate Dehydrogenase Total Creatine Kinase C-Reactive Protein B-Natriuretic Peptide NT-Pro-B Natriuret Pep Total Protein Albumin Vitamin B12 Folate Procalcitonin Urine Color Urine Appearance Urine pH Ur Specific Ten Sleep Urine Protein Urine Glucose (UA) Urine Ketones Urine Blood Urine Nitrite Ur Leukocyte Esterase Urine RBC Urine WBC Ur Squamous Epith Cells Urine Bacteria Hyaline Casts Granular Casts Urine Mucus Ethyl Alcohol COVID-19 (JUDITH) COVID-19 Clin Com Hep Bs Antigen Hep Bs Antibody Hep B Core Total Ab Hepatitis C Ab (EIA) 03/03/21 03/03/21 03/03/21 12:36 12:36 12:36 WBC RBC Hgb Hct MCV MCH MCHC RDW Plt Count MPV Immature Gran % (Auto) Neut % (Auto) Lymph % (Auto) [place] % (Auto) Eos % (Auto) Baso % (Auto) Lymph # (Auto) [place] # (Auto) Eos # (Auto) Baso # (Auto) Abs Immat Gran (auto) Absolute Neuts (auto) Absolute Nucleated RBC Nucleated RBC % (auto) D-Dimer Sodium Potassium Chloride Carbon Dioxide Anion Gap BUN Creatinine Estim Creat Clear Calc Estimated GFR POC Glucose Random Glucose Estimat Average Glucose Hemoglobin A1c % Lactic Acid Calcium 10.3 H Magnesium Total Bilirubin 0.8 Direct Bilirubin 0.3 AST 47 H D ALT 37 Alkaline Phosphatase 91 Ammonia 29 Lactate Dehydrogenase Total Creatine Kinase C-Reactive Protein B-Natriuretic Peptide NT-Pro-B Natriuret Pep Total Protein 7.1 Albumin 5.0 Vitamin B12 Folate Procalcitonin Urine Color Urine Appearance Urine pH Ur Specific Ten Sleep Urine Protein Urine Glucose (UA) Urine Ketones Urine Blood Urine Nitrite Ur Leukocyte Esterase Urine RBC Urine WBC Ur Squamous Epith Cells Urine Bacteria Hyaline Casts Granular Casts Urine Mucus Ethyl Alcohol COVID-19 (JUDITH) COVID-19 Clin Com Hep Bs Antigen Hep Bs Antibody Hep B Core Total Ab Hepatitis C Ab (EIA) 03/03/21 03/04/21 03/04/21 20:18 07:54 07:54 WBC RBC Hgb Hct MCV MCH MCHC RDW Plt Count MPV Immature Gran % (Auto) Neut % (Auto) Lymph % (Auto) [place] % (Auto) Eos % (Auto) Baso % (Auto) Lymph # (Auto) [place] # (Auto) Eos # (Auto) Baso # (Auto) Abs Immat Gran (auto) Absolute Neuts (auto) Absolute Nucleated RBC Nucleated RBC % (auto) D-Dimer Sodium 146 H Potassium 4.0 Chloride 111 H Carbon Dioxide 18 L Anion Gap 21 H BUN 41 H Creatinine 1.35 Estim Creat Clear Calc 74.8 Estimated GFR 56 POC Glucose 147 H Random Glucose 183 H Estimat Average Glucose 146 Hemoglobin A1c % 6.7 Lactic Acid Calcium 10.8 H Magnesium Total Bilirubin Direct Bilirubin AST ALT Alkaline Phosphatase Ammonia Lactate Dehydrogenase Total Creatine Kinase C-Reactive Protein B-Natriuretic Peptide NT-Pro-B Natriuret Pep Total Protein Albumin Vitamin B12 Folate Procalcitonin Urine Color Urine Appearance Urine pH Ur Specific Ten Sleep Urine Protein Urine Glucose (UA) Urine Ketones Urine Blood Urine Nitrite Ur Leukocyte Esterase Urine RBC Urine WBC Ur Squamous Epith Cells Urine Bacteria Hyaline Casts Granular Casts Urine Mucus Ethyl Alcohol COVID-19 (JUDITH) COVID-19 Clin Com Hep Bs Antigen Hep Bs Antibody Hep B Core Total Ab Hepatitis C Ab (EIA) 03/04/21 03/04/21 03/04/21 08:05 12:21 17:08 WBC RBC Hgb Hct MCV MCH MCHC RDW Plt Count MPV Immature Gran % (Auto) Neut % (Auto) Lymph % (Auto) [place] % (Auto) Eos % (Auto) Baso % (Auto) Lymph # (Auto) [place] # (Auto) Eos # (Auto) Baso # (Auto) Abs Immat Gran (auto) Absolute Neuts (auto) Absolute Nucleated RBC Nucleated RBC % (auto) D-Dimer Sodium Potassium Chloride Carbon Dioxide Anion Gap BUN Creatinine Estim Creat Clear Calc Estimated GFR POC Glucose 186 H 191 H 174 H Random Glucose Estimat Average Glucose Hemoglobin A1c % Lactic Acid Calcium Magnesium Total Bilirubin Direct Bilirubin AST ALT Alkaline Phosphatase Ammonia Lactate Dehydrogenase Total Creatine Kinase C-Reactive Protein B-Natriuretic Peptide NT-Pro-B Natriuret Pep Total Protein Albumin Vitamin B12 Folate Procalcitonin Urine Color Urine Appearance Urine pH Ur Specific Ten Sleep Urine Protein Urine Glucose (UA) Urine Ketones Urine Blood Urine Nitrite Ur Leukocyte Esterase Urine RBC Urine WBC Ur Squamous Epith Cells Urine Bacteria Hyaline Casts Granular Casts Urine Mucus Ethyl Alcohol COVID-19 (JUDITH) COVID-19 Clin Com Hep Bs Antigen Hep Bs Antibody Hep B Core Total Ab Hepatitis C Ab (EIA) 0903/05/21 03/05/21 21:42 08:28 09:32 WBC 8.9 RBC 4.83 Hgb 13.2 L Hct 40.6 L MCV 84.1 MCH 27.3 MCHC 32.5 RDW 13.9 Plt Count 252 MPV 11.5 Immature Gran % (Auto) 0.9 H Neut % (Auto) 73.6 H Lymph % (Auto) 18.2 L [place] % (Auto) 7.1 Eos % (Auto) 0.0 Baso % (Auto) 0.2 Lymph # (Auto) 1.6 [place] # (Auto) 0.6 Eos # (Auto) 0.0 Baso # (Auto) 0.0 Abs Immat Gran (auto) 0.08 H Absolute Neuts (auto) 6.5 Absolute Nucleated RBC 0.000 Nucleated RBC % (auto) 0.0 D-Dimer Sodium Potassium Chloride Carbon Dioxide Anion Gap BUN Creatinine Estim Creat Clear Calc Estimated GFR POC Glucose 212 H 179 H Random Glucose Estimat Average Glucose Hemoglobin A1c % Lactic Acid Calcium Magnesium Total Bilirubin Direct Bilirubin AST ALT Alkaline Phosphatase Ammonia Lactate Dehydrogenase Total Creatine Kinase C-Reactive Protein B-Natriuretic Peptide NT-Pro-B Natriuret Pep Total Protein Albumin Vitamin B12 Folate Procalcitonin Urine Color Urine Appearance Urine pH Ur Specific Ten Sleep Urine Protein Urine Glucose (UA) Urine Ketones Urine Blood Urine Nitrite Ur Leukocyte Esterase Urine RBC Urine WBC Ur Squamous Epith Cells Urine Bacteria Hyaline Casts Granular Casts Urine Mucus Ethyl Alcohol COVID-19 (JUDITH) COVID-19 Clin Com Hep Bs Antigen Hep Bs Antibody Hep B Core Total Ab Hepatitis C Ab (EIA) 03/05/21 03/05/21 03/06/21 09:32 17:32 06:42 WBC RBC Hgb Hct MCV MCH MCHC RDW Plt Count MPV Immature Gran % (Auto) Neut % (Auto) Lymph % (Auto) [place] % (Auto) Eos % (Auto) Baso % (Auto) Lymph # (Auto) [place] # (Auto) Eos # (Auto) Baso # (Auto) Abs Immat Gran (auto) Absolute Neuts (auto) Absolute Nucleated RBC Nucleated RBC % (auto) D-Dimer Sodium 149 H Potassium 3.3 Chloride 116 H Carbon Dioxide 24 Anion Gap 12 BUN 36 H Creatinine 1.09 Estim Creat Clear Calc 92.6 Estimated GFR > 60 POC Glucose 241 H 172 H Random Glucose Estimat Average Glucose Hemoglobin A1c % Lactic Acid Calcium Magnesium Total Bilirubin 0.7 Direct Bilirubin 0.3 AST 72 H ALT 51 H Alkaline Phosphatase 88 Ammonia Lactate Dehydrogenase 235 Total Creatine Kinase 1870 H C-Reactive Protein B-Natriuretic Peptide NT-Pro-B Natriuret Pep Total Protein 6.6 Albumin 4.6 Vitamin B12 Folate Procalcitonin Urine Color Urine Appearance Urine pH Ur Specific Ten Sleep Urine Protein Urine Glucose (UA) Urine Ketones Urine Blood Urine Nitrite Ur Leukocyte Esterase Urine RBC Urine WBC Ur Squamous Epith Cells Urine Bacteria Hyaline Casts Granular Casts Urine Mucus Ethyl Alcohol COVID-19 (JUDITH) COVID-19 Clin Com Hep Bs Antigen Hep Bs Antibody Hep B Core Total Ab Hepatitis C Ab (EIA) 03/06/21 03/06/21 03/06/21 09:22 09:23 09:23 WBC RBC Hgb Hct MCV MCH MCHC RDW Plt Count MPV Immature Gran % (Auto) Neut % (Auto) Lymph % (Auto) [place] % (Auto) Eos % (Auto) Baso % (Auto) Lymph # (Auto) [place] # (Auto) Eos # (Auto) Baso # (Auto) Abs Immat Gran (auto) Absolute Neuts (auto) Absolute Nucleated RBC Nucleated RBC % (auto) D-Dimer Sodium 150 H Potassium 3.3 Chloride 117 H Carbon Dioxide 20 L Anion Gap 16 BUN 31 H Creatinine 1.22 Estim Creat Clear Calc 82.7 Estimated GFR > 60 POC Glucose Random Glucose 205 H Estimat Average Glucose Hemoglobin A1c % Lactic Acid Calcium 9.4 D Magnesium Total Bilirubin 1.0 Direct Bilirubin 0.4 AST 73 H ALT 65 H Alkaline Phosphatase 91 Ammonia Lactate Dehydrogenase Total Creatine Kinase 1633 H C-Reactive Protein B-Natriuretic Peptide NT-Pro-B Natriuret Pep Total Protein 6.8 Albumin 4.6 Vitamin B12 1285 H Folate 19.3 Procalcitonin Urine Color Urine Appearance Urine pH Ur Specific Ten Sleep Urine Protein Urine Glucose (UA) Urine Ketones Urine Blood Urine Nitrite Ur Leukocyte Esterase Urine RBC Urine WBC Ur Squamous Epith Cells Urine Bacteria Hyaline Casts Granular Casts Urine Mucus Ethyl Alcohol COVID-19 (JUDITH) COVID-19 Clin Com Hep Bs Antigen Negative Hep Bs Antibody REACTIVE Hep B Core Total Ab Nonreactive Hepatitis C Ab (EIA) Nonreactive 03/06/21 03/06/21 03/06/21 12:26 16:56 21:37 WBC RBC Hgb Hct MCV MCH MCHC RDW Plt Count MPV Immature Gran % (Auto) Neut % (Auto) Lymph % (Auto) [place] % (Auto) Eos % (Auto) Baso % (Auto) Lymph # (Auto) [place] # (Auto) Eos # (Auto) Baso # (Auto) Abs Immat Gran (auto) Absolute Neuts (auto) Absolute Nucleated RBC Nucleated RBC % (auto) D-Dimer Sodium Potassium Chloride Carbon Dioxide Anion Gap BUN Creatinine Estim Creat Clear Calc Estimated GFR POC Glucose 203 H 217 H 189 H Random Glucose Estimat Average Glucose Hemoglobin A1c % Lactic Acid Calcium Magnesium Total Bilirubin Direct Bilirubin AST ALT Alkaline Phosphatase Ammonia Lactate Dehydrogenase Total Creatine Kinase C-Reactive Protein B-Natriuretic Peptide NT-Pro-B Natriuret Pep Total Protein Albumin Vitamin B12 Folate Procalcitonin Urine Color Urine Appearance Urine pH Ur Specific Ten Sleep Urine Protein Urine Glucose (UA) Urine Ketones Urine Blood Urine Nitrite Ur Leukocyte Esterase Urine RBC Urine WBC Ur Squamous Epith Cells Urine Bacteria Hyaline Casts Granular Casts Urine Mucus Ethyl Alcohol COVID-19 (JUDITH) COVID-19 Clin Com Hep Bs Antigen Hep Bs Antibody Hep B Core Total Ab Hepatitis C Ab (EIA) 03/07/21 03/07/21 03/07/21 06:36 08:03 08:23 WBC RBC Hgb Hct MCV MCH MCHC RDW Plt Count MPV Immature Gran % (Auto) Neut % (Auto) Lymph % (Auto) [place] % (Auto) Eos % (Auto) Baso % (Auto) Lymph # (Auto) [place] # (Auto) Eos # (Auto) Baso # (Auto) Abs Immat Gran (auto) Absolute Neuts (auto) Absolute Nucleated RBC Nucleated RBC % (auto) D-Dimer Sodium 147 H Potassium 3.0 L Chloride 113 H Carbon Dioxide 25 Anion Gap 12 BUN 24 H Creatinine 0.86 Estim Creat Clear Calc 117.4 Estimated GFR > 60 POC Glucose 186 H 175 H Random Glucose 200 H Estimat Average Glucose Hemoglobin A1c % Lactic Acid Calcium 8.7 D Magnesium Total Bilirubin Direct Bilirubin AST ALT Alkaline Phosphatase Ammonia Lactate Dehydrogenase Total Creatine Kinase 972 H D C-Reactive Protein B-Natriuretic Peptide NT-Pro-B Natriuret Pep Total Protein Albumin Vitamin B12 Folate Procalcitonin Urine Color Urine Appearance Urine pH Ur Specific Ten Sleep Urine Protein Urine Glucose (UA) Urine Ketones Urine Blood Urine Nitrite Ur Leukocyte Esterase Urine RBC Urine WBC Ur Squamous Epith Cells Urine Bacteria Hyaline Casts Granular Casts Urine Mucus Ethyl Alcohol COVID-19 (JUDITH) COVID-19 Clin Com Hep Bs Antigen Hep Bs Antibody Hep B Core Total Ab Hepatitis C Ab (EIA) 03/07/21 03/07/21 03/07/21 13:13 16:35 21:22 WBC RBC Hgb Hct MCV MCH MCHC RDW Plt Count MPV Immature Gran % (Auto) Neut % (Auto) Lymph % (Auto) [place] % (Auto) Eos % (Auto) Baso % (Auto) Lymph # (Auto) [place] # (Auto) Eos # (Auto) Baso # (Auto) Abs Immat Gran (auto) Absolute Neuts (auto) Absolute Nucleated RBC Nucleated RBC % (auto) D-Dimer Sodium Potassium Chloride Carbon Dioxide Anion Gap BUN Creatinine Estim Creat Clear Calc Estimated GFR POC Glucose 165 H 190 H Random Glucose Estimat Average Glucose Hemoglobin A1c % Lactic Acid 0.8 Calcium Magnesium Total Bilirubin Direct Bilirubin AST ALT Alkaline Phosphatase Ammonia Lactate Dehydrogenase Total Creatine Kinase C-Reactive Protein B-Natriuretic Peptide NT-Pro-B Natriuret Pep Total Protein Albumin Vitamin B12 Folate Procalcitonin Urine Color Urine Appearance Urine pH Ur Specific Ten Sleep Urine Protein Urine Glucose (UA) Urine Ketones Urine Blood Urine Nitrite Ur Leukocyte Esterase Urine RBC Urine WBC Ur Squamous Epith Cells Urine Bacteria Hyaline Casts Granular Casts Urine Mucus Ethyl Alcohol COVID-19 (JUDITH) COVID-19 Clin Com Hep Bs Antigen Hep Bs Antibody Hep B Core Total Ab Hepatitis C Ab (EIA) 03/07/21 03/07/21 03/07/21 21:22 21:23 21:23 WBC 8.2 RBC 4.37 L Hgb 12.1 L Hct 36.1 L MCV 82.6 MCH 27.7 MCHC 33.5 RDW 13.3 Plt Count 189 MPV 11.2 Immature Gran % (Auto) 0.6 H Neut % (Auto) 65.9 Lymph % (Auto) 25.1 [place] % (Auto) 7.5 Eos % (Auto) 0.7 Baso % (Auto) 0.2 Lymph # (Auto) 2.1 [place] # (Auto) 0.6 Eos # (Auto) 0.1 Baso # (Auto) 0.0 Abs Immat Gran (auto) 0.05 H Absolute Neuts (auto) 5.4 Absolute Nucleated RBC 0.000 Nucleated RBC % (auto) 0.0 D-Dimer 337 Sodium Potassium Chloride Carbon Dioxide Anion Gap BUN Creatinine Estim Creat Clear Calc Estimated GFR POC Glucose Random Glucose Estimat Average Glucose Hemoglobin A1c % Lactic Acid Calcium Magnesium Total Bilirubin Direct Bilirubin AST ALT Alkaline Phosphatase Ammonia Lactate Dehydrogenase Total Creatine Kinase C-Reactive Protein B-Natriuretic Peptide NT-Pro-B Natriuret Pep Total Protein Albumin Vitamin B12 Folate Procalcitonin Urine Color YELLOW Urine Appearance CLEAR Urine pH 6.0 Ur Specific Ten Sleep >= 1.030 H Urine Protein TRACE Urine Glucose (UA) >=1000 H Urine Ketones NEG Urine Blood NEG Urine Nitrite NEG Ur Leukocyte Esterase NEG Urine RBC 1-4 Urine WBC 1-4 Ur Squamous Epith Cells 1+ Urine Bacteria 1+ Hyaline Casts 0-2 Granular Casts 0-2 Urine Mucus 2+ Ethyl Alcohol COVID-19 (JUDITH) COVID-19 Clin Com Hep Bs Antigen Hep Bs Antibody Hep B Core Total Ab Hepatitis C Ab (EIA) 03/07/21 03/07/21 03/07/21 21:23 21:23 21:23 WBC RBC Hgb Hct MCV MCH MCHC RDW Plt Count MPV Immature Gran % (Auto) Neut % (Auto) Lymph % (Auto) [place] % (Auto) Eos % (Auto) Baso % (Auto) Lymph # (Auto) [place] # (Auto) Eos # (Auto) Baso # (Auto) Abs Immat Gran (auto) Absolute Neuts (auto) Absolute Nucleated RBC Nucleated RBC % (auto) D-Dimer Sodium 146 H Potassium 2.9 L Chloride 111 H Carbon Dioxide 25 Anion Gap 13 BUN 21 H Creatinine 0.85 Estim Creat Clear Calc 118.8 Estimated GFR > 60 POC Glucose Random Glucose 124 H D Estimat Average Glucose Hemoglobin A1c % Lactic Acid Calcium 8.7 Magnesium Total Bilirubin 0.6 Direct Bilirubin AST 50 H ALT 56 H Alkaline Phosphatase 79 Ammonia Lactate Dehydrogenase Total Creatine Kinase C-Reactive Protein B-Natriuretic Peptide 86 NT-Pro-B Natriuret Pep Cancelled Total Protein 5.5 L Albumin 3.8 Vitamin B12 Folate Procalcitonin Urine Color Urine Appearance Urine pH Ur Specific Ten Sleep Urine Protein Urine Glucose (UA) Urine Ketones Urine Blood Urine Nitrite Ur Leukocyte Esterase Urine RBC Urine WBC Ur Squamous Epith Cells Urine Bacteria Hyaline Casts Granular Casts Urine Mucus Ethyl Alcohol COVID-19 (JUDITH) COVID-19 Clin Com Hep Bs Antigen Hep Bs Antibody Hep B Core Total Ab Hepatitis C Ab (EIA) 03/07/21 03/08/21 03/08/21 21:43 06:32 08:19 WBC RBC Hgb Hct MCV MCH MCHC RDW Plt Count MPV Immature Gran % (Auto) Neut % (Auto) Lymph % (Auto) [place] % (Auto) Eos % (Auto) Baso % (Auto) Lymph # (Auto) [place] # (Auto) Eos # (Auto) Baso # (Auto) Abs Immat Gran (auto) Absolute Neuts (auto) Absolute Nucleated RBC Nucleated RBC % (auto) D-Dimer Sodium 143 Potassium 2.9 L Chloride 108 Carbon Dioxide 26 Anion Gap 12 BUN 17 H Creatinine 0.82 Estim Creat Clear Calc 123.1 Estimated GFR > 60 POC Glucose 127 H 144 H Random Glucose 173 H D Estimat Average Glucose Hemoglobin A1c % Lactic Acid Calcium 8.9 Magnesium 2.0 Total Bilirubin Direct Bilirubin AST ALT Alkaline Phosphatase Ammonia Lactate Dehydrogenase Total Creatine Kinase 584 H D C-Reactive Protein 1.08 H B-Natriuretic Peptide NT-Pro-B Natriuret Pep Total Protein Albumin Vitamin B12 Folate Procalcitonin Urine Color Urine Appearance Urine pH Ur Specific Ten Sleep Urine Protein Urine Glucose (UA) Urine Ketones Urine Blood Urine Nitrite Ur Leukocyte Esterase Urine RBC Urine WBC Ur Squamous Epith Cells Urine Bacteria Hyaline Casts Granular Casts Urine Mucus Ethyl Alcohol COVID-19 (JUDITH) COVID-19 Clin Com Hep Bs Antigen Hep Bs Antibody Hep B Core Total Ab Hepatitis C Ab (EIA) 03/08/21 03/08/21 03/08/21 08:19 12:50 17:26 WBC RBC Hgb Hct MCV MCH MCHC RDW Plt Count MPV Immature Gran % (Auto) Neut % (Auto) Lymph % (Auto) [place] % (Auto) Eos % (Auto) Baso % (Auto) Lymph # (Auto) [place] # (Auto) Eos # (Auto) Baso # (Auto) Abs Immat Gran (auto) Absolute Neuts (auto) Absolute Nucleated RBC Nucleated RBC % (auto) D-Dimer Sodium Potassium Chloride Carbon Dioxide Anion Gap BUN Creatinine Estim Creat Clear Calc Estimated GFR POC Glucose 174 H 152 H Random Glucose Estimat Average Glucose Hemoglobin A1c % Lactic Acid Calcium Magnesium Total Bilirubin Direct Bilirubin AST ALT Alkaline Phosphatase Ammonia Lactate Dehydrogenase Total Creatine Kinase C-Reactive Protein B-Natriuretic Peptide NT-Pro-B Natriuret Pep Total Protein Albumin Vitamin B12 Folate Procalcitonin 0.08 Urine Color Urine Appearance Urine pH Ur Specific Ten Sleep Urine Protein Urine Glucose (UA) Urine Ketones Urine Blood Urine Nitrite Ur Leukocyte Esterase Urine RBC Urine WBC Ur Squamous Epith Cells Urine Bacteria Hyaline Casts Granular Casts Urine Mucus Ethyl Alcohol COVID-19 (JUDITH) COVID-19 Clin Com Hep Bs Antigen Hep Bs Antibody Hep B Core Total Ab Hepatitis C Ab (EIA) 03/08/21 03/09/21 03/09/21 21:02 06:28 08:18 WBC 7.8 RBC 4.39 L Hgb 12.3 L Hct 36.0 L MCV 82.0 MCH 28.0 MCHC 34.2 RDW 13.3 Plt Count 205 MPV 11.5 Immature Gran % (Auto) Neut % (Auto) Lymph % (Auto) [place] % (Auto) Eos % (Auto) Baso % (Auto) Lymph # (Auto) [place] # (Auto) Eos # (Auto) Baso # (Auto) Abs Immat Gran (auto) Absolute Neuts (auto) Absolute Nucleated RBC 0.000 Nucleated RBC % (auto) 0.0 D-Dimer Sodium Potassium Chloride Carbon Dioxide Anion Gap BUN Creatinine Estim Creat Clear Calc Estimated GFR POC Glucose 197 H 154 H Random Glucose Estimat Average Glucose Hemoglobin A1c % Lactic Acid Calcium Magnesium Total Bilirubin Direct Bilirubin AST ALT Alkaline Phosphatase Ammonia Lactate Dehydrogenase Total Creatine Kinase C-Reactive Protein B-Natriuretic Peptide NT-Pro-B Natriuret Pep Total Protein Albumin Vitamin B12 Folate Procalcitonin Urine Color Urine Appearance Urine pH Ur Specific Ten Sleep Urine Protein Urine Glucose (UA) Urine Ketones Urine Blood Urine Nitrite Ur Leukocyte Esterase Urine RBC Urine WBC Ur Squamous Epith Cells Urine Bacteria Hyaline Casts Granular Casts Urine Mucus Ethyl Alcohol COVID-19 (JUDITH) COVID-19 Clin Com Hep Bs Antigen Hep Bs Antibody Hep B Core Total Ab Hepatitis C Ab (EIA) 03/09/21 03/09/21 03/09/21 08:18 08:18 11:46 WBC RBC Hgb Hct MCV MCH MCHC RDW Plt Count MPV Immature Gran % (Auto) Neut % (Auto) Lymph % (Auto) [place] % (Auto) Eos % (Auto) Baso % (Auto) Lymph # (Auto) [place] # (Auto) Eos # (Auto) Baso # (Auto) Abs Immat Gran (auto) Absolute Neuts (auto) Absolute Nucleated RBC Nucleated RBC % (auto) D-Dimer Sodium 144 Potassium 3.2 L Chloride 110 H Carbon Dioxide 26 Anion Gap 11 L BUN 17 H Creatinine 0.85 Estim Creat Clear Calc 118.8 Estimated GFR > 60 POC Glucose 208 H Random Glucose 152 H Estimat Average Glucose Hemoglobin A1c % Lactic Acid Calcium 9.2 Magnesium Total Bilirubin Direct Bilirubin AST ALT Alkaline Phosphatase Ammonia Lactate Dehydrogenase Total Creatine Kinase 299 H D C-Reactive Protein B-Natriuretic Peptide NT-Pro-B Natriuret Pep Total Protein Albumin Vitamin B12 Folate Procalcitonin 0.08 Urine Color Urine Appearance Urine pH Ur Specific Ten Sleep Urine Protein Urine Glucose (UA) Urine Ketones Urine Blood Urine Nitrite Ur Leukocyte Esterase Urine RBC Urine WBC Ur Squamous Epith Cells Urine Bacteria Hyaline Casts Granular Casts Urine Mucus Ethyl Alcohol COVID-19 (JUDITH) COVID-19 Clin Com Hep Bs Antigen Hep Bs Antibody Hep B Core Total Ab Hepatitis C Ab (EIA) 03/09/21 03/09/21 03/10/21 16:55 21:50 09:06 WBC RBC Hgb Hct MCV MCH MCHC RDW Plt Count MPV Immature Gran % (Auto) Neut % (Auto) Lymph % (Auto) [place] % (Auto) Eos % (Auto) Baso % (Auto) Lymph # (Auto) [place] # (Auto) Eos # (Auto) Baso # (Auto) Abs Immat Gran (auto) Absolute Neuts (auto) Absolute Nucleated RBC Nucleated RBC % (auto) D-Dimer Sodium Potassium Chloride Carbon Dioxide Anion Gap BUN Creatinine Estim Creat Clear Calc Estimated GFR POC Glucose 138 H 169 H 146 H Random Glucose Estimat Average Glucose Hemoglobin A1c % Lactic Acid Calcium Magnesium Total Bilirubin Direct Bilirubin AST ALT Alkaline Phosphatase Ammonia Lactate Dehydrogenase Total Creatine Kinase C-Reactive Protein B-Natriuretic Peptide NT-Pro-B Natriuret Pep Total Protein Albumin Vitamin B12 Folate Procalcitonin Urine Color Urine Appearance Urine pH Ur Specific Ten Sleep Urine Protein Urine Glucose (UA) Urine Ketones Urine Blood Urine Nitrite Ur Leukocyte Esterase Urine RBC Urine WBC Ur Squamous Epith Cells Urine Bacteria Hyaline Casts Granular Casts Urine Mucus Ethyl Alcohol COVID-19 (JUDITH) COVID-19 Clin Com Hep Bs Antigen Hep Bs Antibody Hep B Core Total Ab Hepatitis C Ab (EIA) 03/10/21 03/10/21 03/10/21 11:37 12:34 16:34 WBC RBC Hgb Hct MCV MCH MCHC RDW Plt Count MPV Immature Gran % (Auto) Neut % (Auto) Lymph % (Auto) [place] % (Auto) Eos % (Auto) Baso % (Auto) Lymph # (Auto) [place] # (Auto) Eos # (Auto) Baso # (Auto) Abs Immat Gran (auto) Absolute Neuts (auto) Absolute Nucleated RBC Nucleated RBC % (auto) D-Dimer Sodium 144 Potassium 3.5 Chloride 109 H Carbon Dioxide 24 Anion Gap 15 BUN 22 H Creatinine 0.98 Estim Creat Clear Calc 103.0 Estimated GFR > 60 POC Glucose 184 H 157 H Random Glucose 215 H D Estimat Average Glucose Hemoglobin A1c % Lactic Acid Calcium 9.8 D Magnesium Total Bilirubin Direct Bilirubin AST ALT Alkaline Phosphatase Ammonia Lactate Dehydrogenase Total Creatine Kinase C-Reactive Protein B-Natriuretic Peptide NT-Pro-B Natriuret Pep Total Protein Albumin Vitamin B12 Folate Procalcitonin Urine Color Urine Appearance Urine pH Ur Specific Ten Sleep Urine Protein Urine Glucose (UA) Urine Ketones Urine Blood Urine Nitrite Ur Leukocyte Esterase Urine RBC Urine WBC Ur Squamous Epith Cells Urine Bacteria Hyaline Casts Granular Casts Urine Mucus Ethyl Alcohol COVID-19 (JUDITH) COVID-19 Clin Com Hep Bs Antigen Hep Bs Antibody Hep B Core Total Ab Hepatitis C Ab (EIA) 03/10/21 03/11/21 03/11/21 21:28 07:57 08:17 WBC RBC Hgb Hct MCV MCH MCHC RDW Plt Count MPV Immature Gran % (Auto) Neut % (Auto) Lymph % (Auto) [place] % (Auto) Eos % (Auto) Baso % (Auto) Lymph # (Auto) [place] # (Auto) Eos # (Auto) Baso # (Auto) Abs Immat Gran (auto) Absolute Neuts (auto) Absolute Nucleated RBC Nucleated RBC % (auto) D-Dimer Sodium 142 Potassium 3.1 L Chloride 106 Carbon Dioxide 27 Anion Gap 12 BUN 19 H Creatinine 0.85 Estim Creat Clear Calc 118.8 Estimated GFR > 60 POC Glucose 285 H 146 H Random Glucose 156 H Estimat Average Glucose Hemoglobin A1c % Lactic Acid Calcium 9.0 D Magnesium Total Bilirubin Direct Bilirubin AST ALT Alkaline Phosphatase Ammonia Lactate Dehydrogenase Total Creatine Kinase C-Reactive Protein B-Natriuretic Peptide NT-Pro-B Natriuret Pep Total Protein Albumin Vitamin B12 Folate Procalcitonin Urine Color Urine Appearance Urine pH Ur Specific Ten Sleep Urine Protein Urine Glucose (UA) Urine Ketones Urine Blood Urine Nitrite Ur Leukocyte Esterase Urine RBC Urine WBC Ur Squamous Epith Cells Urine Bacteria Hyaline Casts Granular Casts Urine Mucus Ethyl Alcohol COVID-19 (JUDITH) COVID-19 Clin Com Hep Bs Antigen Hep Bs Antibody Hep B Core Total Ab Hepatitis C Ab (EIA) 03/11/21 03/11/21 03/11/21 12:05 16:48 20:35 WBC RBC Hgb Hct MCV MCH MCHC RDW Plt Count MPV Immature Gran % (Auto) Neut % (Auto) Lymph % (Auto) [place] % (Auto) Eos % (Auto) Baso % (Auto) Lymph # (Auto) [place] # (Auto) Eos # (Auto) Baso # (Auto) Abs Immat Gran (auto) Absolute Neuts (auto) Absolute Nucleated RBC Nucleated RBC % (auto) D-Dimer Sodium Potassium Chloride Carbon Dioxide Anion Gap BUN Creatinine Estim Creat Clear Calc Estimated GFR POC Glucose 214 H 143 H 241 H Random Glucose Estimat Average Glucose Hemoglobin A1c % Lactic Acid Calcium Magnesium Total Bilirubin Direct Bilirubin AST ALT Alkaline Phosphatase Ammonia Lactate Dehydrogenase Total Creatine Kinase C-Reactive Protein B-Natriuretic Peptide NT-Pro-B Natriuret Pep Total Protein Albumin Vitamin B12 Folate Procalcitonin Urine Color Urine Appearance Urine pH Ur Specific Ten Sleep Urine Protein Urine Glucose (UA) Urine Ketones Urine Blood Urine Nitrite Ur Leukocyte Esterase Urine RBC Urine WBC Ur Squamous Epith Cells Urine Bacteria Hyaline Casts Granular Casts Urine Mucus Ethyl Alcohol COVID-19 (JUDITH) COVID-19 Clin Com Hep Bs Antigen Hep Bs Antibody Hep B Core Total Ab Hepatitis C Ab (EIA) 03/12/21 03/12/21 03/12/21 06:38 08:02 12:00 WBC RBC Hgb Hct MCV MCH MCHC RDW Plt Count MPV Immature Gran % (Auto) Neut % (Auto) Lymph % (Auto) [place] % (Auto) Eos % (Auto) Baso % (Auto) Lymph # (Auto) [place] # (Auto) Eos # (Auto) Baso # (Auto) Abs Immat Gran (auto) Absolute Neuts (auto) Absolute Nucleated RBC Nucleated RBC % (auto) D-Dimer Sodium 144 Potassium 3.4 Chloride 108 Carbon Dioxide 27 Anion Gap 12 BUN 16 Creatinine 0.86 Estim Creat Clear Calc 130.7 Estimated GFR > 60 POC Glucose 175 H 123 H Random Glucose 147 H Estimat Average Glucose Hemoglobin A1c % Lactic Acid Calcium 8.9 Magnesium Total Bilirubin 0.6 Direct Bilirubin AST 31 ALT 55 H Alkaline Phosphatase 84 Ammonia Lactate Dehydrogenase Total Creatine Kinase C-Reactive Protein B-Natriuretic Peptide NT-Pro-B Natriuret Pep Total Protein 5.6 L Albumin 3.8 Vitamin B12 Folate Procalcitonin Urine Color Urine Appearance Urine pH Ur Specific Ten Sleep Urine Protein Urine Glucose (UA) Urine Ketones Urine Blood Urine Nitrite Ur Leukocyte Esterase Urine RBC Urine WBC Ur Squamous Epith Cells Urine Bacteria Hyaline Casts Granular Casts Urine Mucus Ethyl Alcohol COVID-19 (JUDITH) COVID-19 Clin Com Hep Bs Antigen Hep Bs Antibody Hep B Core Total Ab Hepatitis C Ab (EIA) 03/12/21 03/12/21 03/13/21 17:25 19:57 09:17 WBC RBC Hgb Hct MCV MCH MCHC RDW Plt Count MPV Immature Gran % (Auto) Neut % (Auto) Lymph % (Auto) [place] % (Auto) Eos % (Auto) Baso % (Auto) Lymph # (Auto) [place] # (Auto) Eos # (Auto) Baso # (Auto) Abs Immat Gran (auto) Absolute Neuts (auto) Absolute Nucleated RBC Nucleated RBC % (auto) D-Dimer Sodium Potassium Chloride Carbon Dioxide Anion Gap BUN Creatinine Estim Creat Clear Calc Estimated GFR POC Glucose 181 H 191 H 130 H Random Glucose Estimat Average Glucose Hemoglobin A1c % Lactic Acid Calcium Magnesium Total Bilirubin Direct Bilirubin AST ALT Alkaline Phosphatase Ammonia Lactate Dehydrogenase Total Creatine Kinase C-Reactive Protein B-Natriuretic Peptide NT-Pro-B Natriuret Pep Total Protein Albumin Vitamin B12 Folate Procalcitonin Urine Color Urine Appearance Urine pH Ur Specific Ten Sleep Urine Protein Urine Glucose (UA) Urine Ketones Urine Blood Urine Nitrite Ur Leukocyte Esterase Urine RBC Urine WBC Ur Squamous Epith Cells Urine Bacteria Hyaline Casts Granular Casts Urine Mucus Ethyl Alcohol COVID-19 (JUDITH) COVID-19 Clin Com Hep Bs Antigen Hep Bs Antibody Hep B Core Total Ab Hepatitis C Ab (EIA) 03/13/21 03/13/21 03/13/21 12:29 16:31 21:12 WBC RBC Hgb Hct MCV MCH MCHC RDW Plt Count MPV Immature Gran % (Auto) Neut % (Auto) Lymph % (Auto) [place] % (Auto) Eos % (Auto) Baso % (Auto) Lymph # (Auto) [place] # (Auto) Eos # (Auto) Baso # (Auto) Abs Immat Gran (auto) Absolute Neuts (auto) Absolute Nucleated RBC Nucleated RBC % (auto) D-Dimer Sodium Potassium Chloride Carbon Dioxide Anion Gap BUN Creatinine Estim Creat Clear Calc Estimated GFR POC Glucose 277 H 265 H 130 H Random Glucose Estimat Average Glucose Hemoglobin A1c % Lactic Acid Calcium Magnesium Total Bilirubin Direct Bilirubin AST ALT Alkaline Phosphatase Ammonia Lactate Dehydrogenase Total Creatine Kinase C-Reactive Protein B-Natriuretic Peptide NT-Pro-B Natriuret Pep Total Protein Albumin Vitamin B12 Folate Procalcitonin Urine Color Urine Appearance Urine pH Ur Specific Ten Sleep Urine Protein Urine Glucose (UA) Urine Ketones Urine Blood Urine Nitrite Ur Leukocyte Esterase Urine RBC Urine WBC Ur Squamous Epith Cells Urine Bacteria Hyaline Casts Granular Casts Urine Mucus Ethyl Alcohol COVID-19 (JUDITH) COVID-19 Clin Com Hep Bs Antigen Hep Bs Antibody Hep B Core Total Ab Hepatitis C Ab (EIA) 03/14/21 03/14/21 03/15/21 08:52 21:35 08:33 WBC RBC Hgb Hct MCV MCH MCHC RDW Plt Count MPV Immature Gran % (Auto) Neut % (Auto) Lymph % (Auto) [place] % (Auto) Eos % (Auto) Baso % (Auto) Lymph # (Auto) [place] # (Auto) Eos # (Auto) Baso # (Auto) Abs Immat Gran (auto) Absolute Neuts (auto) Absolute Nucleated RBC Nucleated RBC % (auto) D-Dimer Sodium Potassium Chloride Carbon Dioxide Anion Gap BUN Creatinine Estim Creat Clear Calc Estimated GFR POC Glucose 163 H 140 H 170 H Random Glucose Estimat Average Glucose Hemoglobin A1c % Lactic Acid Calcium Magnesium Total Bilirubin Direct Bilirubin AST ALT Alkaline Phosphatase Ammonia Lactate Dehydrogenase Total Creatine Kinase C-Reactive Protein B-Natriuretic Peptide NT-Pro-B Natriuret Pep Total Protein Albumin Vitamin B12 Folate Procalcitonin Urine Color Urine Appearance Urine pH Ur Specific Ten Sleep Urine Protein Urine Glucose (UA) Urine Ketones Urine Blood Urine Nitrite Ur Leukocyte Esterase Urine RBC Urine WBC Ur Squamous Epith Cells Urine Bacteria Hyaline Casts Granular Casts Urine Mucus Ethyl Alcohol COVID-19 (JUDITH) COVID-19 Clin Com Hep Bs Antigen Hep Bs Antibody Hep B Core Total Ab Hepatitis C Ab (EIA) 03/15/21 03/15/21 03/16/21 17:26 20:20 07:07 WBC RBC Hgb Hct MCV MCH MCHC RDW Plt Count MPV Immature Gran % (Auto) Neut % (Auto) Lymph % (Auto) [place] % (Auto) Eos % (Auto) Baso % (Auto) Lymph # (Auto) [place] # (Auto) Eos # (Auto) Baso # (Auto) Abs Immat Gran (auto) Absolute Neuts (auto) Absolute Nucleated RBC Nucleated RBC % (auto) D-Dimer Sodium Potassium Chloride Carbon Dioxide Anion Gap BUN Creatinine Estim Creat Clear Calc Estimated GFR POC Glucose 130 H 227 H 162 H Random Glucose Estimat Average Glucose Hemoglobin A1c % Lactic Acid Calcium Magnesium Total Bilirubin Direct Bilirubin AST ALT Alkaline Phosphatase Ammonia Lactate Dehydrogenase Total Creatine Kinase C-Reactive Protein B-Natriuretic Peptide NT-Pro-B Natriuret Pep Total Protein Albumin Vitamin B12 Folate Procalcitonin Urine Color Urine Appearance Urine pH Ur Specific Ten Sleep Urine Protein Urine Glucose (UA) Urine Ketones Urine Blood Urine Nitrite Ur Leukocyte Esterase Urine RBC Urine WBC Ur Squamous Epith Cells Urine Bacteria Hyaline Casts Granular Casts Urine Mucus Ethyl Alcohol COVID-19 (JUDITH) COVID-19 Clin Com Hep Bs Antigen Hep Bs Antibody Hep B Core Total Ab Hepatitis C Ab (EIA) 03/16/21 03/16/21 03/16/21 12:23 16:42 21:18 WBC RBC Hgb Hct MCV MCH MCHC RDW Plt Count MPV Immature Gran % (Auto) Neut % (Auto) Lymph % (Auto) [place] % (Auto) Eos % (Auto) Baso % (Auto) Lymph # (Auto) [place] # (Auto) Eos # (Auto) Baso # (Auto) Abs Immat Gran (auto) Absolute Neuts (auto) Absolute Nucleated RBC Nucleated RBC % (auto) D-Dimer Sodium Potassium Chloride Carbon Dioxide Anion Gap BUN Creatinine Estim Creat Clear Calc Estimated GFR POC Glucose 145 H 171 H 179 H Random Glucose Estimat Average Glucose Hemoglobin A1c % Lactic Acid Calcium Magnesium Total Bilirubin Direct Bilirubin AST ALT Alkaline Phosphatase Ammonia Lactate Dehydrogenase Total Creatine Kinase C-Reactive Protein B-Natriuretic Peptide NT-Pro-B Natriuret Pep Total Protein Albumin Vitamin B12 Folate Procalcitonin Urine Color Urine Appearance Urine pH Ur Specific Ten Sleep Urine Protein Urine Glucose (UA) Urine Ketones Urine Blood Urine Nitrite Ur Leukocyte Esterase Urine RBC Urine WBC Ur Squamous Epith Cells Urine Bacteria Hyaline Casts Granular Casts Urine Mucus Ethyl Alcohol COVID-19 (JUDITH) COVID-19 Clin Com Hep Bs Antigen Hep Bs Antibody Hep B Core Total Ab Hepatitis C Ab (EIA) 03/17/21 03/17/21 03/17/21 05:57 12:32 16:39 WBC RBC Hgb Hct MCV MCH MCHC RDW Plt Count MPV Immature Gran % (Auto) Neut % (Auto) Lymph % (Auto) [place] % (Auto) Eos % (Auto) Baso % (Auto) Lymph # (Auto) [place] # (Auto) Eos # (Auto) Baso # (Auto) Abs Immat Gran (auto) Absolute Neuts (auto) Absolute Nucleated RBC Nucleated RBC % (auto) D-Dimer Sodium Potassium Chloride Carbon Dioxide Anion Gap BUN Creatinine Estim Creat Clear Calc Estimated GFR POC Glucose 138 H 175 H 164 H Random Glucose Estimat Average Glucose Hemoglobin A1c % Lactic Acid Calcium Magnesium Total Bilirubin Direct Bilirubin AST ALT Alkaline Phosphatase Ammonia Lactate Dehydrogenase Total Creatine Kinase C-Reactive Protein B-Natriuretic Peptide NT-Pro-B Natriuret Pep Total Protein Albumin Vitamin B12 Folate Procalcitonin Urine Color Urine Appearance Urine pH Ur Specific Ten Sleep Urine Protein Urine Glucose (UA) Urine Ketones Urine Blood Urine Nitrite Ur Leukocyte Esterase Urine RBC Urine WBC Ur Squamous Epith Cells Urine Bacteria Hyaline Casts Granular Casts Urine Mucus Ethyl Alcohol COVID-19 (JUDITH) COVID-19 Clin Com Hep Bs Antigen Hep Bs Antibody Hep B Core Total Ab Hepatitis C Ab (EIA) 03/17/21 03/18/21 03/18/21 20:43 06:07 16:26 WBC RBC Hgb Hct MCV MCH MCHC RDW Plt Count MPV Immature Gran % (Auto) Neut % (Auto) Lymph % (Auto) [place] % (Auto) Eos % (Auto) Baso % (Auto) Lymph # (Auto) [place] # (Auto) Eos # (Auto) Baso # (Auto) Abs Immat Gran (auto) Absolute Neuts (auto) Absolute Nucleated RBC Nucleated RBC % (auto) D-Dimer Sodium Potassium Chloride Carbon Dioxide Anion Gap BUN Creatinine Estim Creat Clear Calc Estimated GFR POC Glucose 183 H 165 H 177 H Random Glucose Estimat Average Glucose Hemoglobin A1c % Lactic Acid Calcium Magnesium Total Bilirubin Direct Bilirubin AST ALT Alkaline Phosphatase Ammonia Lactate Dehydrogenase Total Creatine Kinase C-Reactive Protein B-Natriuretic Peptide NT-Pro-B Natriuret Pep Total Protein Albumin Vitamin B12 Folate Procalcitonin Urine Color Urine Appearance Urine pH Ur Specific Ten Sleep Urine Protein Urine Glucose (UA) Urine Ketones Urine Blood Urine Nitrite Ur Leukocyte Esterase Urine RBC Urine WBC Ur Squamous Epith Cells Urine Bacteria Hyaline Casts Granular Casts Urine Mucus Ethyl Alcohol COVID-19 (JUDITH) COVID-19 Clin Com Hep Bs Antigen Hep Bs Antibody Hep B Core Total Ab Hepatitis C Ab (EIA) 03/18/21 03/19/21 03/19/21 20:03 05:56 11:43 WBC RBC Hgb Hct MCV MCH MCHC RDW Plt Count MPV Immature Gran % (Auto) Neut % (Auto) Lymph % (Auto) [place] % (Auto) Eos % (Auto) Baso % (Auto) Lymph # (Auto) [place] # (Auto) Eos # (Auto) Baso # (Auto) Abs Immat Gran (auto) Absolute Neuts (auto) Absolute Nucleated RBC Nucleated RBC % (auto) D-Dimer Sodium Potassium Chloride Carbon Dioxide Anion Gap BUN Creatinine Estim Creat Clear Calc Estimated GFR POC Glucose 229 H 171 H 170 H Random Glucose Estimat Average Glucose Hemoglobin A1c % Lactic Acid Calcium Magnesium Total Bilirubin Direct Bilirubin AST ALT Alkaline Phosphatase Ammonia Lactate Dehydrogenase Total Creatine Kinase C-Reactive Protein B-Natriuretic Peptide NT-Pro-B Natriuret Pep Total Protein Albumin Vitamin B12 Folate Procalcitonin Urine Color Urine Appearance Urine pH Ur Specific Ten Sleep Urine Protein Urine Glucose (UA) Urine Ketones Urine Blood Urine Nitrite Ur Leukocyte Esterase Urine RBC Urine WBC Ur Squamous Epith Cells Urine Bacteria Hyaline Casts Granular Casts Urine Mucus Ethyl Alcohol COVID-19 (JUDITH) COVID-19 Clin Com Hep Bs Antigen Hep Bs Antibody Hep B Core Total Ab Hepatitis C Ab (EIA) 03/19/21 03/19/21 03/20/21 16:33 20:49 06:28 WBC RBC Hgb Hct MCV MCH MCHC RDW Plt Count MPV Immature Gran % (Auto) Neut % (Auto) Lymph % (Auto) [place] % (Auto) Eos % (Auto) Baso % (Auto) Lymph # (Auto) [place] # (Auto) Eos # (Auto) Baso # (Auto) Abs Immat Gran (auto) Absolute Neuts (auto) Absolute Nucleated RBC Nucleated RBC % (auto) D-Dimer Sodium Potassium Chloride Carbon Dioxide Anion Gap BUN Creatinine Estim Creat Clear Calc Estimated GFR POC Glucose 230 H 203 H 179 H Random Glucose Estimat Average Glucose Hemoglobin A1c % Lactic Acid Calcium Magnesium Total Bilirubin Direct Bilirubin AST ALT Alkaline Phosphatase Ammonia Lactate Dehydrogenase Total Creatine Kinase C-Reactive Protein B-Natriuretic Peptide NT-Pro-B Natriuret Pep Total Protein Albumin Vitamin B12 Folate Procalcitonin Urine Color Urine Appearance Urine pH Ur Specific Ten Sleep Urine Protein Urine Glucose (UA) Urine Ketones Urine Blood Urine Nitrite Ur Leukocyte Esterase Urine RBC Urine WBC Ur Squamous Epith Cells Urine Bacteria Hyaline Casts Granular Casts Urine Mucus Ethyl Alcohol COVID-19 (JUDITH) COVID-19 Clin Com Hep Bs Antigen Hep Bs Antibody Hep B Core Total Ab Hepatitis C Ab (EIA) 03/20/21 03/20/21 03/20/21 08:02 11:24 16:35 WBC RBC Hgb Hct MCV MCH MCHC RDW Plt Count MPV Immature Gran % (Auto) Neut % (Auto) Lymph % (Auto) [place] % (Auto) Eos % (Auto) Baso % (Auto) Lymph # (Auto) [place] # (Auto) Eos # (Auto) Baso # (Auto) Abs Immat Gran (auto) Absolute Neuts (auto) Absolute Nucleated RBC Nucleated RBC % (auto) D-Dimer Sodium Potassium Chloride Carbon Dioxide Anion Gap BUN Creatinine Estim Creat Clear Calc Estimated GFR POC Glucose 172 H 388 H* 135 H Random Glucose Estimat Average Glucose Hemoglobin A1c % Lactic Acid Calcium Magnesium Total Bilirubin Direct Bilirubin AST ALT Alkaline Phosphatase Ammonia Lactate Dehydrogenase Total Creatine Kinase C-Reactive Protein B-Natriuretic Peptide NT-Pro-B Natriuret Pep Total Protein Albumin Vitamin B12 Folate Procalcitonin Urine Color Urine Appearance Urine pH Ur Specific Ten Sleep Urine Protein Urine Glucose (UA) Urine Ketones Urine Blood Urine Nitrite Ur Leukocyte Esterase Urine RBC Urine WBC Ur Squamous Epith Cells Urine Bacteria Hyaline Casts Granular Casts Urine Mucus Ethyl Alcohol COVID-19 (JUDITH) COVID-19 Clin Com Hep Bs Antigen Hep Bs Antibody Hep B Core Total Ab Hepatitis C Ab (EIA) 03/20/21 03/21/21 03/21/21 20:23 06:49 12:18 WBC RBC Hgb Hct MCV MCH MCHC RDW Plt Count MPV Immature Gran % (Auto) Neut % (Auto) Lymph % (Auto) [place] % (Auto) Eos % (Auto) Baso % (Auto) Lymph # (Auto) [place] # (Auto) Eos # (Auto) Baso # (Auto) Abs Immat Gran (auto) Absolute Neuts (auto) Absolute Nucleated RBC Nucleated RBC % (auto) D-Dimer Sodium Potassium Chloride Carbon Dioxide Anion Gap BUN Creatinine Estim Creat Clear Calc Estimated GFR POC Glucose 161 H 174 H 238 H Random Glucose Estimat Average Glucose Hemoglobin A1c % Lactic Acid Calcium Magnesium Total Bilirubin Direct Bilirubin AST ALT Alkaline Phosphatase Ammonia Lactate Dehydrogenase Total Creatine Kinase C-Reactive Protein B-Natriuretic Peptide NT-Pro-B Natriuret Pep Total Protein Albumin Vitamin B12 Folate Procalcitonin Urine Color Urine Appearance Urine pH Ur Specific Ten Sleep Urine Protein Urine Glucose (UA) Urine Ketones Urine Blood Urine Nitrite Ur Leukocyte Esterase Urine RBC Urine WBC Ur Squamous Epith Cells Urine Bacteria Hyaline Casts Granular Casts Urine Mucus Ethyl Alcohol COVID-19 (JUDITH) COVID-19 Clin Com Hep Bs Antigen Hep Bs Antibody Hep B Core Total Ab Hepatitis C Ab (EIA) 03/21/21 03/21/21 03/22/21 16:57 20:25 06:18 WBC RBC Hgb Hct MCV MCH MCHC RDW Plt Count MPV Immature Gran % (Auto) Neut % (Auto) Lymph % (Auto) [place] % (Auto) Eos % (Auto) Baso % (Auto) Lymph # (Auto) [place] # (Auto) Eos # (Auto) Baso # (Auto) Abs Immat Gran (auto) Absolute Neuts (auto) Absolute Nucleated RBC Nucleated RBC % (auto) D-Dimer Sodium Potassium Chloride Carbon Dioxide Anion Gap BUN Creatinine Estim Creat Clear Calc Estimated GFR POC Glucose 178 H 157 H 195 H Random Glucose Estimat Average Glucose Hemoglobin A1c % Lactic Acid Calcium Magnesium Total Bilirubin Direct Bilirubin AST ALT Alkaline Phosphatase Ammonia Lactate Dehydrogenase Total Creatine Kinase C-Reactive Protein B-Natriuretic Peptide NT-Pro-B Natriuret Pep Total Protein Albumin Vitamin B12 Folate Procalcitonin Urine Color Urine Appearance Urine pH Ur Specific Ten Sleep Urine Protein Urine Glucose (UA) Urine Ketones Urine Blood Urine Nitrite Ur Leukocyte Esterase Urine RBC Urine WBC Ur Squamous Epith Cells Urine Bacteria Hyaline Casts Granular Casts Urine Mucus Ethyl Alcohol COVID-19 (JUDITH) COVID-19 Clin Com Hep Bs Antigen Hep Bs Antibody Hep B Core Total Ab Hepatitis C Ab (EIA) Assessment and Plan Final Anesthetic Review Family History of Problems with Anesthesia: No History of Problems with Anesthesia: No
--- NOTE | 2021-03-22 07:02 | HO.ECTPROC ---
ECT Procedure Note Diagnosis/Treatment Date of Service: 03/22/21 Diagnosis: Bipolar disorder Previous ECT Date: 03/19/21 Current Treatment Number: 4 Treatment: Series Interval Clinical Notes: The patient reported feeling better, on interview, he was pleasant and cooperative,showed a brighter affect but still dysphoric and with mild thought blocking. ECT Settings Device: THYMATRON DGx Electrode Placement: Bitemporal Program/Pulse Width: 0.50 Energy Percent: 100 Seizure Duration By EEG (in seconds): 48 By Motor Observation (in seconds): 35 Medications Administration General Anesthetic: Etomidate (16) Muscle Relaxant: Succinylcholine (100) Ancillary Medications Analgesics: Torodol - Pre ECT Anti-emetics: Zofran - Pre ECT Miscillaneous Medications: Propofol (40) Airway Management Airway Management: Bag Mask Ventilation Treatment Recommendations No Changes Recommended: No change Pt Tolerated Procedure w/o Issue: Yes
--- NOTE | 2021-03-22 07:05 | P.CONAN_ITS ---
[facility] Active Problems Active Problems: All Active Problems (Updated 03/12/21 @ 15:56 by Chang Mason DO) Pre-op evaluation (Acute) Hypernatremia (Acute) Hypokalemia, inadequate intake (Acute) Preop cardiovascular exam (Acute) Rhabdomyolysis (Acute) Bipolar I disorder with catatonia (Acute) Catatonic excitement (Acute) Bipolar disorder (Acute) Type 2 diabetes mellitus (Chronic) Past Medical History Medical History Bipolar 1 disorder Depression Diabetes Family History Family history of problems with anesthesia: No Surgical History History of Problems with Anesthesia: No Social History Social History Household Members: Spouse Housing: Unknown / Unable to assess Do you presently have visiting nurse or other home services: No Unable to assess alcohol history related to: Unable to respond and Unknown Patient Tobacco Use Status: Tobacco use Unknown Smoked in Last 30 Days: No Use of substances other than those prescribed or required for medical reasons: Unable to respond Currently Displaying Signs/Symptoms of Drug Intoxication Withdrawal: No Are you DNR?: No Advance Directives: No Advance Directives Information Provided: No Advance Directives on File: No Do you have thoughts of harming others: None Do you have a plan to hurt others: No Plan Recently lost weight without trying: No Nutrition Risks: Difficulty chewing and Difficulty swallowing Poor oral hygiene: Yes service: No Sexual orientation: Straight/Heterosexual Meds Allergies Allergy/AdvReac Type Severity Reaction Status Date / Time No Known Allergies Allergy Unverified 03/05/20 17:38 [No Known Allergies*] Active Medications: Current Medications Acetaminophen (Acetaminophen 325 Mg Tablet) 650 mg PO Q6H PRN PRN Reason: Headache/Pain Mild Scale (1-3) Acetaminophen (Acetaminophen 325 Mg Tablet) 650 mg PO ONCE PRN PRN Reason: Pain, Mild (Pain Scale 1-3) Al Hydroxide/Mg Hydroxide (Magnesium Hydrox/Alum Hydrox 30 Ml Oral.Susp) 30 ml PO Q6H PRN PRN Reason: Heartburn/Nausea Atorvastatin Calcium (Atorvastatin Calcium 20 Mg Tablet) 20 mg PO BEDTIME KATEY Last Admin: 03/21/21 20:33 Dose: 20 mg Documented by: Glucose (Glucose Gel 15 Gm Gel..Gram.) 15 gm PO Q15M PRN; Protocol PRN Reason: per Hypoglycemia Standing Ord. Lactated Ringer's (Lr) 1,000 mls @ 50 mls/hr IVCONT .Q20H [facility] Insulin Human Lispro (Insulin Lispro 100 Unit/Ml 3 Ml Vial) 0 unit SUBCUT QIDACHS [facility]; Protocol Last Admin: 03/21/21 20:34 Dose: 2 unit Documented by: Lorazepam (Lorazepam 1 Mg Tablet) 2 mg PO BID [facility] Last Admin: 03/21/21 15:52 Dose: Not Given Documented by: Magnesium Hydroxide (Milk Of Magnesia 30 Ml Oral.Susp) 30 ml PO DAILY PRN PRN Reason: Constipation Metformin HCl (Metformin Hcl 1,000 Mg Tablet) 1,000 mg PO BIDWM [facility] Last Admin: 03/21/21 17:25 Dose: 1,000 mg Documented by: Multivitamins/Vitamin C (Multivitamin Tablet) 1 tab PO DAILY [facility] Last Admin: 03/21/21 09:58 Dose: Not Given Documented by: Nicotine Polacrilex (Nicotine Polacrilex 2 Mg Gum) 4 mg BUCCAL Q2H PRN PRN Reason: Nicotine Cravings Last Admin: 03/09/21 09:46 Dose: 4 mg Documented by: Olanzapine (Olanzapine 2.5 Mg Tablet) 2.5 mg PO BID [facility] Last Admin: 03/21/21 20:33 Dose: 2.5 mg Documented by: Home Medications Medication Instructions Recorded Confirmed Last Taken Type atorvastatin 20 mg tablet 1 tab PO BEDTIME 03/01/21 03/01/21 02/28/21 History empagliflozin 10 mg tablet 1 tab PO QAM 03/01/21 03/01/21 02/28/21 History (Jardiance) glipizide 10 mg tablet, extended 1 tab PO DAILY 03/01/21 03/01/21 02/28/21 History release 24 hr lorazepam 1 mg tablet 1 mg PO TID 03/01/21 03/01/21 03/01/21 History metformin 1,000 mg tablet 1 tab PO BID 03/01/21 03/01/21 02/28/21 History multivitamin 1 tab PO DAILY 03/01/21 03/01/21 02/28/21 History olanzapine 10 mg tablet 10 mg PO BEDTIME 03/01/21 03/01/21 Unknown History sertraline 100 mg tablet 2 tab PO QAM 03/01/21 03/01/21 03/01/21 History Exam Exam Date and Time: March 22, [id number] Height,Weight and Vital Signs: Height 6 ft 1 in Weight 108.862 kg Last Vital Signs Temp 98.0 F 03/22/21 06:58 Pulse 77 03/22/21 06:58 Resp 16 03/22/21 06:58 BP 129/79 03/22/21 06:58 Pulse Ox 97 03/22/21 06:58 Pertinent Lab Results Pertinent Lab Results: Laboratory Tests 03/01/21 03/01/21 03/01/21 14:37 14:49 14:49 WBC 11.7 H RBC 5.27 Hgb 14.5 Hct 44.2 MCV 83.9 MCH 27.5 MCHC 32.8 RDW 13.9 Plt Count 277 MPV 11.0 Immature Gran % (Auto) 0.6 H Neut % (Auto) 78.6 H Lymph % (Auto) 13.9 L [place] % (Auto) 6.6 Eos % (Auto) 0.0 Baso % (Auto) 0.3 Lymph # (Auto) 1.6 [place] # (Auto) 0.8 Eos # (Auto) 0.0 Baso # (Auto) 0.0 Abs Immat Gran (auto) 0.07 H Absolute Neuts (auto) 9.2 H Absolute Nucleated RBC 0.000 Nucleated RBC % (auto) 0.0 D-Dimer Sodium 143 Potassium 4.0 Chloride 107 Carbon Dioxide 21 L Anion Gap 19 BUN 30 H Creatinine 1.16 Estim Creat Clear Calc 87.0 Estimated GFR > 60 POC Glucose Random Glucose 141 H Estimat Average Glucose Hemoglobin A1c % Lactic Acid Calcium 10.6 H Magnesium Total Bilirubin 0.5 Direct Bilirubin 0.2 AST 22 ALT 46 H Alkaline Phosphatase 105 Ammonia Lactate Dehydrogenase Total Creatine Kinase C-Reactive Protein B-Natriuretic Peptide NT-Pro-B Natriuret Pep Total Protein 8.2 H Albumin 5.5 H Vitamin B12 Folate Procalcitonin Urine Color Urine Appearance Urine pH Ur Specific [employer] Urine Protein Urine Glucose (UA) Urine Ketones Urine Blood Urine Nitrite Ur Leukocyte Esterase Urine RBC Urine WBC Ur Squamous Epith Cells Urine Bacteria Hyaline Casts Granular Casts Urine Mucus Ethyl Alcohol COVID-19 (JUDITH) Negative COVID-19 Clin Com See Note Hep Bs Antigen Hep Bs Antibody Hep B Core Total Ab Hepatitis C Ab (EIA) 03/01/21 03/02/21 03/02/21 14:49 00:59 01:01 WBC RBC Hgb Hct MCV MCH MCHC RDW Plt Count MPV Immature Gran % (Auto) Neut % (Auto) Lymph % (Auto) [place] % (Auto) Eos % (Auto) Baso % (Auto) Lymph # (Auto) [place] # (Auto) Eos # (Auto) Baso # (Auto) Abs Immat Gran (auto) Absolute Neuts (auto) Absolute Nucleated RBC Nucleated RBC % (auto) D-Dimer Sodium Potassium Chloride Carbon Dioxide Anion Gap BUN Creatinine Estim Creat Clear Calc Estimated GFR POC Glucose 155 H 161 H Random Glucose Estimat Average Glucose Hemoglobin A1c % Lactic Acid Calcium Magnesium Total Bilirubin Direct Bilirubin AST ALT Alkaline Phosphatase Ammonia Lactate Dehydrogenase Total Creatine Kinase C-Reactive Protein B-Natriuretic Peptide NT-Pro-B Natriuret Pep Total Protein Albumin Vitamin B12 Folate Procalcitonin Urine Color Urine Appearance Urine pH Ur Specific [employer] Urine Protein Urine Glucose (UA) Urine Ketones Urine Blood Urine Nitrite Ur Leukocyte Esterase Urine RBC Urine WBC Ur Squamous Epith Cells Urine Bacteria Hyaline Casts Granular Casts Urine Mucus Ethyl Alcohol < 10 COVID-19 (JUDITH) COVID-19 Clin Com Hep Bs Antigen Hep Bs Antibody Hep B Core Total Ab Hepatitis C Ab (EIA) 03/02/21 03/03/21 03/03/21 09:30 12:36 12:36 WBC 11.8 H RBC 4.76 Hgb 13.1 L Hct 40.5 L MCV 85.1 MCH 27.5 MCHC 32.3 RDW 14.0 Plt Count 265 MPV 10.6 Immature Gran % (Auto) 0.5 H Neut % (Auto) 74.8 H Lymph % (Auto) 16.6 L [place] % (Auto) 7.8 Eos % (Auto) 0.0 Baso % (Auto) 0.3 Lymph # (Auto) 2.0 [place] # (Auto) 0.9 Eos # (Auto) 0.0 Baso # (Auto) 0.0 Abs Immat Gran (auto) 0.06 H Absolute Neuts (auto) 8.8 H Absolute Nucleated RBC 0.000 Nucleated RBC % (auto) 0.0 D-Dimer Sodium 148 H Potassium 3.5 Chloride 114 H Carbon Dioxide 20 L Anion Gap 18 BUN 33 H Creatinine 1.07 Estim Creat Clear Calc 94.3 Estimated GFR > 60 POC Glucose 214 H Random Glucose Estimat Average Glucose Hemoglobin A1c % Lactic Acid Calcium Magnesium Total Bilirubin Direct Bilirubin AST ALT Alkaline Phosphatase Ammonia Lactate Dehydrogenase Total Creatine Kinase C-Reactive Protein B-Natriuretic Peptide NT-Pro-B Natriuret Pep Total Protein Albumin Vitamin B12 Folate Procalcitonin Urine Color Urine Appearance Urine pH Ur Specific [employer] Urine Protein Urine Glucose (UA) Urine Ketones Urine Blood Urine Nitrite Ur Leukocyte Esterase Urine RBC Urine WBC Ur Squamous Epith Cells Urine Bacteria Hyaline Casts Granular Casts Urine Mucus Ethyl Alcohol COVID-19 (JUDITH) COVID-19 Clin Com Hep Bs Antigen Hep Bs Antibody Hep B Core Total Ab Hepatitis C Ab (EIA) 03/03/21 03/03/21 03/03/21 12:36 12:36 12:36 WBC RBC Hgb Hct MCV MCH MCHC RDW Plt Count MPV Immature Gran % (Auto) Neut % (Auto) Lymph % (Auto) [place] % (Auto) Eos % (Auto) Baso % (Auto) Lymph # (Auto) [place] # (Auto) Eos # (Auto) Baso # (Auto) Abs Immat Gran (auto) Absolute Neuts (auto) Absolute Nucleated RBC Nucleated RBC % (auto) D-Dimer Sodium Potassium Chloride Carbon Dioxide Anion Gap BUN Creatinine Estim Creat Clear Calc Estimated GFR POC Glucose Random Glucose Estimat Average Glucose Hemoglobin A1c % Lactic Acid Calcium 10.3 H Magnesium Total Bilirubin 0.8 Direct Bilirubin 0.3 AST 47 H D ALT 37 Alkaline Phosphatase 91 Ammonia 29 Lactate Dehydrogenase Total Creatine Kinase C-Reactive Protein B-Natriuretic Peptide NT-Pro-B Natriuret Pep Total Protein 7.1 Albumin 5.0 Vitamin B12 Folate Procalcitonin Urine Color Urine Appearance Urine pH Ur Specific [employer] Urine Protein Urine Glucose (UA) Urine Ketones Urine Blood Urine Nitrite Ur Leukocyte Esterase Urine RBC Urine WBC Ur Squamous Epith Cells Urine Bacteria Hyaline Casts Granular Casts Urine Mucus Ethyl Alcohol COVID-19 (JUDITH) COVID-19 Clin Com Hep Bs Antigen Hep Bs Antibody Hep B Core Total Ab Hepatitis C Ab (EIA) 03/03/21 03/04/21 03/04/21 20:18 07:54 07:54 WBC RBC Hgb Hct MCV MCH MCHC RDW Plt Count MPV Immature Gran % (Auto) Neut % (Auto) Lymph % (Auto) [place] % (Auto) Eos % (Auto) Baso % (Auto) Lymph # (Auto) [place] # (Auto) Eos # (Auto) Baso # (Auto) Abs Immat Gran (auto) Absolute Neuts (auto) Absolute Nucleated RBC Nucleated RBC % (auto) D-Dimer Sodium 146 H Potassium 4.0 Chloride 111 H Carbon Dioxide 18 L Anion Gap 21 H BUN 41 H Creatinine 1.35 Estim Creat Clear Calc 74.8 Estimated GFR 56 POC Glucose 147 H Random Glucose 183 H Estimat Average Glucose 146 Hemoglobin A1c % 6.7 Lactic Acid Calcium 10.8 H Magnesium Total Bilirubin Direct Bilirubin AST ALT Alkaline Phosphatase Ammonia Lactate Dehydrogenase Total Creatine Kinase C-Reactive Protein B-Natriuretic Peptide NT-Pro-B Natriuret Pep Total Protein Albumin Vitamin B12 Folate Procalcitonin Urine Color Urine Appearance Urine pH Ur Specific [employer] Urine Protein Urine Glucose (UA) Urine Ketones Urine Blood Urine Nitrite Ur Leukocyte Esterase Urine RBC Urine WBC Ur Squamous Epith Cells Urine Bacteria Hyaline Casts Granular Casts Urine Mucus Ethyl Alcohol COVID-19 (JUDITH) COVID-19 Clin Com Hep Bs Antigen Hep Bs Antibody Hep B Core Total Ab Hepatitis C Ab (EIA) 03/04/21 03/04/21 03/04/21 08:05 12:21 17:08 WBC RBC Hgb Hct MCV MCH MCHC RDW Plt Count MPV Immature Gran % (Auto) Neut % (Auto) Lymph % (Auto) [place] % (Auto) Eos % (Auto) Baso % (Auto) Lymph # (Auto) [place] # (Auto) Eos # (Auto) Baso # (Auto) Abs Immat Gran (auto) Absolute Neuts (auto) Absolute Nucleated RBC Nucleated RBC % (auto) D-Dimer Sodium Potassium Chloride Carbon Dioxide Anion Gap BUN Creatinine Estim Creat Clear Calc Estimated GFR POC Glucose 186 H 191 H 174 H Random Glucose Estimat Average Glucose Hemoglobin A1c % Lactic Acid Calcium Magnesium Total Bilirubin Direct Bilirubin AST ALT Alkaline Phosphatase Ammonia Lactate Dehydrogenase Total Creatine Kinase C-Reactive Protein B-Natriuretic Peptide NT-Pro-B Natriuret Pep Total Protein Albumin Vitamin B12 Folate Procalcitonin Urine Color Urine Appearance Urine pH Ur Specific [employer] Urine Protein Urine Glucose (UA) Urine Ketones Urine Blood Urine Nitrite Ur Leukocyte Esterase Urine RBC Urine WBC Ur Squamous Epith Cells Urine Bacteria Hyaline Casts Granular Casts Urine Mucus Ethyl Alcohol COVID-19 (JUDITH) COVID-19 Clin Com Hep Bs Antigen Hep Bs Antibody Hep B Core Total Ab Hepatitis C Ab (EIA) 09/03/05/21 03/05/21 21:42 08:28 09:32 WBC 8.9 RBC 4.83 Hgb 13.2 L Hct 40.6 L MCV 84.1 MCH 27.3 MCHC 32.5 RDW 13.9 Plt Count 252 MPV 11.5 Immature Gran % (Auto) 0.9 H Neut % (Auto) 73.6 H Lymph % (Auto) 18.2 L [place] % (Auto) 7.1 Eos % (Auto) 0.0 Baso % (Auto) 0.2 Lymph # (Auto) 1.6 [place] # (Auto) 0.6 Eos # (Auto) 0.0 Baso # (Auto) 0.0 Abs Immat Gran (auto) 0.08 H Absolute Neuts (auto) 6.5 Absolute Nucleated RBC 0.000 Nucleated RBC % (auto) 0.0 D-Dimer Sodium Potassium Chloride Carbon Dioxide Anion Gap BUN Creatinine Estim Creat Clear Calc Estimated GFR POC Glucose 212 H 179 H Random Glucose Estimat Average Glucose Hemoglobin A1c % Lactic Acid Calcium Magnesium Total Bilirubin Direct Bilirubin AST ALT Alkaline Phosphatase Ammonia Lactate Dehydrogenase Total Creatine Kinase C-Reactive Protein B-Natriuretic Peptide NT-Pro-B Natriuret Pep Total Protein Albumin Vitamin B12 Folate Procalcitonin Urine Color Urine Appearance Urine pH Ur Specific [employer] Urine Protein Urine Glucose (UA) Urine Ketones Urine Blood Urine Nitrite Ur Leukocyte Esterase Urine RBC Urine WBC Ur Squamous Epith Cells Urine Bacteria Hyaline Casts Granular Casts Urine Mucus Ethyl Alcohol COVID-19 (JUDITH) COVID-19 Clin Com Hep Bs Antigen Hep Bs Antibody Hep B Core Total Ab Hepatitis C Ab (EIA) 03/05/21 03/05/21 03/06/21 09:32 17:32 06:42 WBC RBC Hgb Hct MCV MCH MCHC RDW Plt Count MPV Immature Gran % (Auto) Neut % (Auto) Lymph % (Auto) [place] % (Auto) Eos % (Auto) Baso % (Auto) Lymph # (Auto) [place] # (Auto) Eos # (Auto) Baso # (Auto) Abs Immat Gran (auto) Absolute Neuts (auto) Absolute Nucleated RBC Nucleated RBC % (auto) D-Dimer Sodium 149 H Potassium 3.3 Chloride 116 H Carbon Dioxide 24 Anion Gap 12 BUN 36 H Creatinine 1.09 Estim Creat Clear Calc 92.6 Estimated GFR > 60 POC Glucose 241 H 172 H Random Glucose Estimat Average Glucose Hemoglobin A1c % Lactic Acid Calcium Magnesium Total Bilirubin 0.7 Direct Bilirubin 0.3 AST 72 H ALT 51 H Alkaline Phosphatase 88 Ammonia Lactate Dehydrogenase 235 Total Creatine Kinase 1870 H C-Reactive Protein B-Natriuretic Peptide NT-Pro-B Natriuret Pep Total Protein 6.6 Albumin 4.6 Vitamin B12 Folate Procalcitonin Urine Color Urine Appearance Urine pH Ur Specific [employer] Urine Protein Urine Glucose (UA) Urine Ketones Urine Blood Urine Nitrite Ur Leukocyte Esterase Urine RBC Urine WBC Ur Squamous Epith Cells Urine Bacteria Hyaline Casts Granular Casts Urine Mucus Ethyl Alcohol COVID-19 (JUDITH) COVID-19 Clin Com Hep Bs Antigen Hep Bs Antibody Hep B Core Total Ab Hepatitis C Ab (EIA) 03/06/21 03/06/21 03/06/21 09:22 09:23 09:23 WBC RBC Hgb Hct MCV MCH MCHC RDW Plt Count MPV Immature Gran % (Auto) Neut % (Auto) Lymph % (Auto) [place] % (Auto) Eos % (Auto) Baso % (Auto) Lymph # (Auto) [place] # (Auto) Eos # (Auto) Baso # (Auto) Abs Immat Gran (auto) Absolute Neuts (auto) Absolute Nucleated RBC Nucleated RBC % (auto) D-Dimer Sodium 150 H Potassium 3.3 Chloride 117 H Carbon Dioxide 20 L Anion Gap 16 BUN 31 H Creatinine 1.22 Estim Creat Clear Calc 82.7 Estimated GFR > 60 POC Glucose Random Glucose 205 H Estimat Average Glucose Hemoglobin A1c % Lactic Acid Calcium 9.4 D Magnesium Total Bilirubin 1.0 Direct Bilirubin 0.4 AST 73 H ALT 65 H Alkaline Phosphatase 91 Ammonia Lactate Dehydrogenase Total Creatine Kinase 1633 H C-Reactive Protein B-Natriuretic Peptide NT-Pro-B Natriuret Pep Total Protein 6.8 Albumin 4.6 Vitamin B12 1285 H Folate 19.3 Procalcitonin Urine Color Urine Appearance Urine pH Ur Specific [employer] Urine Protein Urine Glucose (UA) Urine Ketones Urine Blood Urine Nitrite Ur Leukocyte Esterase Urine RBC Urine WBC Ur Squamous Epith Cells Urine Bacteria Hyaline Casts Granular Casts Urine Mucus Ethyl Alcohol COVID-19 (JUDITH) COVID-19 Clin Com Hep Bs Antigen Negative Hep Bs Antibody REACTIVE Hep B Core Total Ab Nonreactive Hepatitis C Ab (EIA) Nonreactive 03/06/21 03/06/21 03/06/21 12:26 16:56 21:37 WBC RBC Hgb Hct MCV MCH MCHC RDW Plt Count MPV Immature Gran % (Auto) Neut % (Auto) Lymph % (Auto) [place] % (Auto) Eos % (Auto) Baso % (Auto) Lymph # (Auto) [place] # (Auto) Eos # (Auto) Baso # (Auto) Abs Immat Gran (auto) Absolute Neuts (auto) Absolute Nucleated RBC Nucleated RBC % (auto) D-Dimer Sodium Potassium Chloride Carbon Dioxide Anion Gap BUN Creatinine Estim Creat Clear Calc Estimated GFR POC Glucose 203 H 217 H 189 H Random Glucose Estimat Average Glucose Hemoglobin A1c % Lactic Acid Calcium Magnesium Total Bilirubin Direct Bilirubin AST ALT Alkaline Phosphatase Ammonia Lactate Dehydrogenase Total Creatine Kinase C-Reactive Protein B-Natriuretic Peptide NT-Pro-B Natriuret Pep Total Protein Albumin Vitamin B12 Folate Procalcitonin Urine Color Urine Appearance Urine pH Ur Specific [employer] Urine Protein Urine Glucose (UA) Urine Ketones Urine Blood Urine Nitrite Ur Leukocyte Esterase Urine RBC Urine WBC Ur Squamous Epith Cells Urine Bacteria Hyaline Casts Granular Casts Urine Mucus Ethyl Alcohol COVID-19 (JUDITH) COVID-19 Clin Com Hep Bs Antigen Hep Bs Antibody Hep B Core Total Ab Hepatitis C Ab (EIA) 03/07/21 03/07/21 03/07/21 06:36 08:03 08:23 WBC RBC Hgb Hct MCV MCH MCHC RDW Plt Count MPV Immature Gran % (Auto) Neut % (Auto) Lymph % (Auto) [place] % (Auto) Eos % (Auto) Baso % (Auto) Lymph # (Auto) [place] # (Auto) Eos # (Auto) Baso # (Auto) Abs Immat Gran (auto) Absolute Neuts (auto) Absolute Nucleated RBC Nucleated RBC % (auto) D-Dimer Sodium 147 H Potassium 3.0 L Chloride 113 H Carbon Dioxide 25 Anion Gap 12 BUN 24 H Creatinine 0.86 Estim Creat Clear Calc 117.4 Estimated GFR > 60 POC Glucose 186 H 175 H Random Glucose 200 H Estimat Average Glucose Hemoglobin A1c % Lactic Acid Calcium 8.7 D Magnesium Total Bilirubin Direct Bilirubin AST ALT Alkaline Phosphatase Ammonia Lactate Dehydrogenase Total Creatine Kinase 972 H D C-Reactive Protein B-Natriuretic Peptide NT-Pro-B Natriuret Pep Total Protein Albumin Vitamin B12 Folate Procalcitonin Urine Color Urine Appearance Urine pH Ur Specific [employer] Urine Protein Urine Glucose (UA) Urine Ketones Urine Blood Urine Nitrite Ur Leukocyte Esterase Urine RBC Urine WBC Ur Squamous Epith Cells Urine Bacteria Hyaline Casts Granular Casts Urine Mucus Ethyl Alcohol COVID-19 (JUDITH) COVID-19 Clin Com Hep Bs Antigen Hep Bs Antibody Hep B Core Total Ab Hepatitis C Ab (EIA) 03/07/21 03/07/21 03/07/21 13:13 16:35 21:22 WBC RBC Hgb Hct MCV MCH MCHC RDW Plt Count MPV Immature Gran % (Auto) Neut % (Auto) Lymph % (Auto) [place] % (Auto) Eos % (Auto) Baso % (Auto) Lymph # (Auto) [place] # (Auto) Eos # (Auto) Baso # (Auto) Abs Immat Gran (auto) Absolute Neuts (auto) Absolute Nucleated RBC Nucleated RBC % (auto) D-Dimer Sodium Potassium Chloride Carbon Dioxide Anion Gap BUN Creatinine Estim Creat Clear Calc Estimated GFR POC Glucose 165 H 190 H Random Glucose Estimat Average Glucose Hemoglobin A1c % Lactic Acid 0.8 Calcium Magnesium Total Bilirubin Direct Bilirubin AST ALT Alkaline Phosphatase Ammonia Lactate Dehydrogenase Total Creatine Kinase C-Reactive Protein B-Natriuretic Peptide NT-Pro-B Natriuret Pep Total Protein Albumin Vitamin B12 Folate Procalcitonin Urine Color Urine Appearance Urine pH Ur Specific [employer] Urine Protein Urine Glucose (UA) Urine Ketones Urine Blood Urine Nitrite Ur Leukocyte Esterase Urine RBC Urine WBC Ur Squamous Epith Cells Urine Bacteria Hyaline Casts Granular Casts Urine Mucus Ethyl Alcohol COVID-19 (JUDITH) COVID-19 Clin Com Hep Bs Antigen Hep Bs Antibody Hep B Core Total Ab Hepatitis C Ab (EIA) 03/07/21 03/07/21 03/07/21 21:22 21:23 21:23 WBC 8.2 RBC 4.37 L Hgb 12.1 L Hct 36.1 L MCV 82.6 MCH 27.7 MCHC 33.5 RDW 13.3 Plt Count 189 MPV 11.2 Immature Gran % (Auto) 0.6 H Neut % (Auto) 65.9 Lymph % (Auto) 25.1 [place] % (Auto) 7.5 Eos % (Auto) 0.7 Baso % (Auto) 0.2 Lymph # (Auto) 2.1 [place] # (Auto) 0.6 Eos # (Auto) 0.1 Baso # (Auto) 0.0 Abs Immat Gran (auto) 0.05 H Absolute Neuts (auto) 5.4 Absolute Nucleated RBC 0.000 Nucleated RBC % (auto) 0.0 D-Dimer 337 Sodium Potassium Chloride Carbon Dioxide Anion Gap BUN Creatinine Estim Creat Clear Calc Estimated GFR POC Glucose Random Glucose Estimat Average Glucose Hemoglobin A1c % Lactic Acid Calcium Magnesium Total Bilirubin Direct Bilirubin AST ALT Alkaline Phosphatase Ammonia Lactate Dehydrogenase Total Creatine Kinase C-Reactive Protein B-Natriuretic Peptide NT-Pro-B Natriuret Pep Total Protein Albumin Vitamin B12 Folate Procalcitonin Urine Color YELLOW Urine Appearance CLEAR Urine pH 6.0 Ur Specific [employer] >= 1.030 H Urine Protein TRACE Urine Glucose (UA) >=1000 H Urine Ketones NEG Urine Blood NEG Urine Nitrite NEG Ur Leukocyte Esterase NEG Urine RBC 1-4 Urine WBC 1-4 Ur Squamous Epith Cells 1+ Urine Bacteria 1+ Hyaline Casts 0-2 Granular Casts 0-2 Urine Mucus 2+ Ethyl Alcohol COVID-19 (JUDITH) COVID-19 Clin Com Hep Bs Antigen Hep Bs Antibody Hep B Core Total Ab Hepatitis C Ab (EIA) 03/07/21 03/07/21 03/07/21 21:23 21:23 21:23 WBC RBC Hgb Hct MCV MCH MCHC RDW Plt Count MPV Immature Gran % (Auto) Neut % (Auto) Lymph % (Auto) [place] % (Auto) Eos % (Auto) Baso % (Auto) Lymph # (Auto) [place] # (Auto) Eos # (Auto) Baso # (Auto) Abs Immat Gran (auto) Absolute Neuts (auto) Absolute Nucleated RBC Nucleated RBC % (auto) D-Dimer Sodium 146 H Potassium 2.9 L Chloride 111 H Carbon Dioxide 25 Anion Gap 13 BUN 21 H Creatinine 0.85 Estim Creat Clear Calc 118.8 Estimated GFR > 60 POC Glucose Random Glucose 124 H D Estimat Average Glucose Hemoglobin A1c % Lactic Acid Calcium 8.7 Magnesium Total Bilirubin 0.6 Direct Bilirubin AST 50 H ALT 56 H Alkaline Phosphatase 79 Ammonia Lactate Dehydrogenase Total Creatine Kinase C-Reactive Protein B-Natriuretic Peptide 86 NT-Pro-B Natriuret Pep Cancelled Total Protein 5.5 L Albumin 3.8 Vitamin B12 Folate Procalcitonin Urine Color Urine Appearance Urine pH Ur Specific [employer] Urine Protein Urine Glucose (UA) Urine Ketones Urine Blood Urine Nitrite Ur Leukocyte Esterase Urine RBC Urine WBC Ur Squamous Epith Cells Urine Bacteria Hyaline Casts Granular Casts Urine Mucus Ethyl Alcohol COVID-19 (JUDITH) COVID-19 Clin Com Hep Bs Antigen Hep Bs Antibody Hep B Core Total Ab Hepatitis C Ab (EIA) 03/07/21 03/08/21 03/08/21 21:43 06:32 08:19 WBC RBC Hgb Hct MCV MCH MCHC RDW Plt Count MPV Immature Gran % (Auto) Neut % (Auto) Lymph % (Auto) [place] % (Auto) Eos % (Auto) Baso % (Auto) Lymph # (Auto) [place] # (Auto) Eos # (Auto) Baso # (Auto) Abs Immat Gran (auto) Absolute Neuts (auto) Absolute Nucleated RBC Nucleated RBC % (auto) D-Dimer Sodium 143 Potassium 2.9 L Chloride 108 Carbon Dioxide 26 Anion Gap 12 BUN 17 H Creatinine 0.82 Estim Creat Clear Calc 123.1 Estimated GFR > 60 POC Glucose 127 H 144 H Random Glucose 173 H D Estimat Average Glucose Hemoglobin A1c % Lactic Acid Calcium 8.9 Magnesium 2.0 Total Bilirubin Direct Bilirubin AST ALT Alkaline Phosphatase Ammonia Lactate Dehydrogenase Total Creatine Kinase 584 H D C-Reactive Protein 1.08 H B-Natriuretic Peptide NT-Pro-B Natriuret Pep Total Protein Albumin Vitamin B12 Folate Procalcitonin Urine Color Urine Appearance Urine pH Ur Specific [employer] Urine Protein Urine Glucose (UA) Urine Ketones Urine Blood Urine Nitrite Ur Leukocyte Esterase Urine RBC Urine WBC Ur Squamous Epith Cells Urine Bacteria Hyaline Casts Granular Casts Urine Mucus Ethyl Alcohol COVID-19 (JUDITH) COVID-19 Clin Com Hep Bs Antigen Hep Bs Antibody Hep B Core Total Ab Hepatitis C Ab (EIA) 03/08/21 03/08/21 03/08/21 08:19 12:50 17:26 WBC RBC Hgb Hct MCV MCH MCHC RDW Plt Count MPV Immature Gran % (Auto) Neut % (Auto) Lymph % (Auto) [place] % (Auto) Eos % (Auto) Baso % (Auto) Lymph # (Auto) [place] # (Auto) Eos # (Auto) Baso # (Auto) Abs Immat Gran (auto) Absolute Neuts (auto) Absolute Nucleated RBC Nucleated RBC % (auto) D-Dimer Sodium Potassium Chloride Carbon Dioxide Anion Gap BUN Creatinine Estim Creat Clear Calc Estimated GFR POC Glucose 174 H 152 H Random Glucose Estimat Average Glucose Hemoglobin A1c % Lactic Acid Calcium Magnesium Total Bilirubin Direct Bilirubin AST ALT Alkaline Phosphatase Ammonia Lactate Dehydrogenase Total Creatine Kinase C-Reactive Protein B-Natriuretic Peptide NT-Pro-B Natriuret Pep Total Protein Albumin Vitamin B12 Folate Procalcitonin 0.08 Urine Color Urine Appearance Urine pH Ur Specific [employer] Urine Protein Urine Glucose (UA) Urine Ketones Urine Blood Urine Nitrite Ur Leukocyte Esterase Urine RBC Urine WBC Ur Squamous Epith Cells Urine Bacteria Hyaline Casts Granular Casts Urine Mucus Ethyl Alcohol COVID-19 (JUDITH) COVID-19 Clin Com Hep Bs Antigen Hep Bs Antibody Hep B Core Total Ab Hepatitis C Ab (EIA) 03/08/21 03/09/21 03/09/21 21:02 06:28 08:18 WBC 7.8 RBC 4.39 L Hgb 12.3 L Hct 36.0 L MCV 82.0 MCH 28.0 MCHC 34.2 RDW 13.3 Plt Count 205 MPV 11.5 Immature Gran % (Auto) Neut % (Auto) Lymph % (Auto) [place] % (Auto) Eos % (Auto) Baso % (Auto) Lymph # (Auto) [place] # (Auto) Eos # (Auto) Baso # (Auto) Abs Immat Gran (auto) Absolute Neuts (auto) Absolute Nucleated RBC 0.000 Nucleated RBC % (auto) 0.0 D-Dimer Sodium Potassium Chloride Carbon Dioxide Anion Gap BUN Creatinine Estim Creat Clear Calc Estimated GFR POC Glucose 197 H 154 H Random Glucose Estimat Average Glucose Hemoglobin A1c % Lactic Acid Calcium Magnesium Total Bilirubin Direct Bilirubin AST ALT Alkaline Phosphatase Ammonia Lactate Dehydrogenase Total Creatine Kinase C-Reactive Protein B-Natriuretic Peptide NT-Pro-B Natriuret Pep Total Protein Albumin Vitamin B12 Folate Procalcitonin Urine Color Urine Appearance Urine pH Ur Specific [employer] Urine Protein Urine Glucose (UA) Urine Ketones Urine Blood Urine Nitrite Ur Leukocyte Esterase Urine RBC Urine WBC Ur Squamous Epith Cells Urine Bacteria Hyaline Casts Granular Casts Urine Mucus Ethyl Alcohol COVID-19 (JUDITH) COVID-19 Clin Com Hep Bs Antigen Hep Bs Antibody Hep B Core Total Ab Hepatitis C Ab (EIA) 03/09/21 03/09/21 03/09/21 08:18 08:18 11:46 WBC RBC Hgb Hct MCV MCH MCHC RDW Plt Count MPV Immature Gran % (Auto) Neut % (Auto) Lymph % (Auto) [place] % (Auto) Eos % (Auto) Baso % (Auto) Lymph # (Auto) [place] # (Auto) Eos # (Auto) Baso # (Auto) Abs Immat Gran (auto) Absolute Neuts (auto) Absolute Nucleated RBC Nucleated RBC % (auto) D-Dimer Sodium 144 Potassium 3.2 L Chloride 110 H Carbon Dioxide 26 Anion Gap 11 L BUN 17 H Creatinine 0.85 Estim Creat Clear Calc 118.8 Estimated GFR > 60 POC Glucose 208 H Random Glucose 152 H Estimat Average Glucose Hemoglobin A1c % Lactic Acid Calcium 9.2 Magnesium Total Bilirubin Direct Bilirubin AST ALT Alkaline Phosphatase Ammonia Lactate Dehydrogenase Total Creatine Kinase 299 H D C-Reactive Protein B-Natriuretic Peptide NT-Pro-B Natriuret Pep Total Protein Albumin Vitamin B12 Folate Procalcitonin 0.08 Urine Color Urine Appearance Urine pH Ur Specific [employer] Urine Protein Urine Glucose (UA) Urine Ketones Urine Blood Urine Nitrite Ur Leukocyte Esterase Urine RBC Urine WBC Ur Squamous Epith Cells Urine Bacteria Hyaline Casts Granular Casts Urine Mucus Ethyl Alcohol COVID-19 (JUDITH) COVID-19 Clin Com Hep Bs Antigen Hep Bs Antibody Hep B Core Total Ab Hepatitis C Ab (EIA) 03/09/21 03/09/21 03/10/21 16:55 21:50 09:06 WBC RBC Hgb Hct MCV MCH MCHC RDW Plt Count MPV Immature Gran % (Auto) Neut % (Auto) Lymph % (Auto) [place] % (Auto) Eos % (Auto) Baso % (Auto) Lymph # (Auto) [place] # (Auto) Eos # (Auto) Baso # (Auto) Abs Immat Gran (auto) Absolute Neuts (auto) Absolute Nucleated RBC Nucleated RBC % (auto) D-Dimer Sodium Potassium Chloride Carbon Dioxide Anion Gap BUN Creatinine Estim Creat Clear Calc Estimated GFR POC Glucose 138 H 169 H 146 H Random Glucose Estimat Average Glucose Hemoglobin A1c % Lactic Acid Calcium Magnesium Total Bilirubin Direct Bilirubin AST ALT Alkaline Phosphatase Ammonia Lactate Dehydrogenase Total Creatine Kinase C-Reactive Protein B-Natriuretic Peptide NT-Pro-B Natriuret Pep Total Protein Albumin Vitamin B12 Folate Procalcitonin Urine Color Urine Appearance Urine pH Ur Specific [employer] Urine Protein Urine Glucose (UA) Urine Ketones Urine Blood Urine Nitrite Ur Leukocyte Esterase Urine RBC Urine WBC Ur Squamous Epith Cells Urine Bacteria Hyaline Casts Granular Casts Urine Mucus Ethyl Alcohol COVID-19 (JUDITH) COVID-19 Clin Com Hep Bs Antigen Hep Bs Antibody Hep B Core Total Ab Hepatitis C Ab (EIA) 03/10/21 03/10/21 03/10/21 11:37 12:34 16:34 WBC RBC Hgb Hct MCV MCH MCHC RDW Plt Count MPV Immature Gran % (Auto) Neut % (Auto) Lymph % (Auto) [place] % (Auto) Eos % (Auto) Baso % (Auto) Lymph # (Auto) [place] # (Auto) Eos # (Auto) Baso # (Auto) Abs Immat Gran (auto) Absolute Neuts (auto) Absolute Nucleated RBC Nucleated RBC % (auto) D-Dimer Sodium 144 Potassium 3.5 Chloride 109 H Carbon Dioxide 24 Anion Gap 15 BUN 22 H Creatinine 0.98 Estim Creat Clear Calc 103.0 Estimated GFR > 60 POC Glucose 184 H 157 H Random Glucose 215 H D Estimat Average Glucose Hemoglobin A1c % Lactic Acid Calcium 9.8 D Magnesium Total Bilirubin Direct Bilirubin AST ALT Alkaline Phosphatase Ammonia Lactate Dehydrogenase Total Creatine Kinase C-Reactive Protein B-Natriuretic Peptide NT-Pro-B Natriuret Pep Total Protein Albumin Vitamin B12 Folate Procalcitonin Urine Color Urine Appearance Urine pH Ur Specific [employer] Urine Protein Urine Glucose (UA) Urine Ketones Urine Blood Urine Nitrite Ur Leukocyte Esterase Urine RBC Urine WBC Ur Squamous Epith Cells Urine Bacteria Hyaline Casts Granular Casts Urine Mucus Ethyl Alcohol COVID-19 (JUDITH) COVID-19 Clin Com Hep Bs Antigen Hep Bs Antibody Hep B Core Total Ab Hepatitis C Ab (EIA) 03/10/21 03/11/21 03/11/21 21:28 07:57 08:17 WBC RBC Hgb Hct MCV MCH MCHC RDW Plt Count MPV Immature Gran % (Auto) Neut % (Auto) Lymph % (Auto) [place] % (Auto) Eos % (Auto) Baso % (Auto) Lymph # (Auto) [place] # (Auto) Eos # (Auto) Baso # (Auto) Abs Immat Gran (auto) Absolute Neuts (auto) Absolute Nucleated RBC Nucleated RBC % (auto) D-Dimer Sodium 142 Potassium 3.1 L Chloride 106 Carbon Dioxide 27 Anion Gap 12 BUN 19 H Creatinine 0.85 Estim Creat Clear Calc 118.8 Estimated GFR > 60 POC Glucose 285 H 146 H Random Glucose 156 H Estimat Average Glucose Hemoglobin A1c % Lactic Acid Calcium 9.0 D Magnesium Total Bilirubin Direct Bilirubin AST ALT Alkaline Phosphatase Ammonia Lactate Dehydrogenase Total Creatine Kinase C-Reactive Protein B-Natriuretic Peptide NT-Pro-B Natriuret Pep Total Protein Albumin Vitamin B12 Folate Procalcitonin Urine Color Urine Appearance Urine pH Ur Specific [employer] Urine Protein Urine Glucose (UA) Urine Ketones Urine Blood Urine Nitrite Ur Leukocyte Esterase Urine RBC Urine WBC Ur Squamous Epith Cells Urine Bacteria Hyaline Casts Granular Casts Urine Mucus Ethyl Alcohol COVID-19 (JUDITH) COVID-19 Clin Com Hep Bs Antigen Hep Bs Antibody Hep B Core Total Ab Hepatitis C Ab (EIA) 03/11/21 03/11/21 03/11/21 12:05 16:48 20:35 WBC RBC Hgb Hct MCV MCH MCHC RDW Plt Count MPV Immature Gran % (Auto) Neut % (Auto) Lymph % (Auto) [place] % (Auto) Eos % (Auto) Baso % (Auto) Lymph # (Auto) [place] # (Auto) Eos # (Auto) Baso # (Auto) Abs Immat Gran (auto) Absolute Neuts (auto) Absolute Nucleated RBC Nucleated RBC % (auto) D-Dimer Sodium Potassium Chloride Carbon Dioxide Anion Gap BUN Creatinine Estim Creat Clear Calc Estimated GFR POC Glucose 214 H 143 H 241 H Random Glucose Estimat Average Glucose Hemoglobin A1c % Lactic Acid Calcium Magnesium Total Bilirubin Direct Bilirubin AST ALT Alkaline Phosphatase Ammonia Lactate Dehydrogenase Total Creatine Kinase C-Reactive Protein B-Natriuretic Peptide NT-Pro-B Natriuret Pep Total Protein Albumin Vitamin B12 Folate Procalcitonin Urine Color Urine Appearance Urine pH Ur Specific [employer] Urine Protein Urine Glucose (UA) Urine Ketones Urine Blood Urine Nitrite Ur Leukocyte Esterase Urine RBC Urine WBC Ur Squamous Epith Cells Urine Bacteria Hyaline Casts Granular Casts Urine Mucus Ethyl Alcohol COVID-19 (JUDITH) COVID-19 Clin Com Hep Bs Antigen Hep Bs Antibody Hep B Core Total Ab Hepatitis C Ab (EIA) 03/12/21 03/12/21 03/12/21 06:38 08:02 12:00 WBC RBC Hgb Hct MCV MCH MCHC RDW Plt Count MPV Immature Gran % (Auto) Neut % (Auto) Lymph % (Auto) [place] % (Auto) Eos % (Auto) Baso % (Auto) Lymph # (Auto) [place] # (Auto) Eos # (Auto) Baso # (Auto) Abs Immat Gran (auto) Absolute Neuts (auto) Absolute Nucleated RBC Nucleated RBC % (auto) D-Dimer Sodium 144 Potassium 3.4 Chloride 108 Carbon Dioxide 27 Anion Gap 12 BUN 16 Creatinine 0.86 Estim Creat Clear Calc 130.7 Estimated GFR > 60 POC Glucose 175 H 123 H Random Glucose 147 H Estimat Average Glucose Hemoglobin A1c % Lactic Acid Calcium 8.9 Magnesium Total Bilirubin 0.6 Direct Bilirubin AST 31 ALT 55 H Alkaline Phosphatase 84 Ammonia Lactate Dehydrogenase Total Creatine Kinase C-Reactive Protein B-Natriuretic Peptide NT-Pro-B Natriuret Pep Total Protein 5.6 L Albumin 3.8 Vitamin B12 Folate Procalcitonin Urine Color Urine Appearance Urine pH Ur Specific [employer] Urine Protein Urine Glucose (UA) Urine Ketones Urine Blood Urine Nitrite Ur Leukocyte Esterase Urine RBC Urine WBC Ur Squamous Epith Cells Urine Bacteria Hyaline Casts Granular Casts Urine Mucus Ethyl Alcohol COVID-19 (JUDITH) COVID-19 Clin Com Hep Bs Antigen Hep Bs Antibody Hep B Core Total Ab Hepatitis C Ab (EIA) 03/12/21 03/12/21 03/13/21 17:25 19:57 09:17 WBC RBC Hgb Hct MCV MCH MCHC RDW Plt Count MPV Immature Gran % (Auto) Neut % (Auto) Lymph % (Auto) [place] % (Auto) Eos % (Auto) Baso % (Auto) Lymph # (Auto) [place] # (Auto) Eos # (Auto) Baso # (Auto) Abs Immat Gran (auto) Absolute Neuts (auto) Absolute Nucleated RBC Nucleated RBC % (auto) D-Dimer Sodium Potassium Chloride Carbon Dioxide Anion Gap BUN Creatinine Estim Creat Clear Calc Estimated GFR POC Glucose 181 H 191 H 130 H Random Glucose Estimat Average Glucose Hemoglobin A1c % Lactic Acid Calcium Magnesium Total Bilirubin Direct Bilirubin AST ALT Alkaline Phosphatase Ammonia Lactate Dehydrogenase Total Creatine Kinase C-Reactive Protein B-Natriuretic Peptide NT-Pro-B Natriuret Pep Total Protein Albumin Vitamin B12 Folate Procalcitonin Urine Color Urine Appearance Urine pH Ur Specific [employer] Urine Protein Urine Glucose (UA) Urine Ketones Urine Blood Urine Nitrite Ur Leukocyte Esterase Urine RBC Urine WBC Ur Squamous Epith Cells Urine Bacteria Hyaline Casts Granular Casts Urine Mucus Ethyl Alcohol COVID-19 (JUDITH) COVID-19 Clin Com Hep Bs Antigen Hep Bs Antibody Hep B Core Total Ab Hepatitis C Ab (EIA) 03/13/21 03/13/21 03/13/21 12:29 16:31 21:12 WBC RBC Hgb Hct MCV MCH MCHC RDW Plt Count MPV Immature Gran % (Auto) Neut % (Auto) Lymph % (Auto) [place] % (Auto) Eos % (Auto) Baso % (Auto) Lymph # (Auto) [place] # (Auto) Eos # (Auto) Baso # (Auto) Abs Immat Gran (auto) Absolute Neuts (auto) Absolute Nucleated RBC Nucleated RBC % (auto) D-Dimer Sodium Potassium Chloride Carbon Dioxide Anion Gap BUN Creatinine Estim Creat Clear Calc Estimated GFR POC Glucose 277 H 265 H 130 H Random Glucose Estimat Average Glucose Hemoglobin A1c % Lactic Acid Calcium Magnesium Total Bilirubin Direct Bilirubin AST ALT Alkaline Phosphatase Ammonia Lactate Dehydrogenase Total Creatine Kinase C-Reactive Protein B-Natriuretic Peptide NT-Pro-B Natriuret Pep Total Protein Albumin Vitamin B12 Folate Procalcitonin Urine Color Urine Appearance Urine pH Ur Specific [employer] Urine Protein Urine Glucose (UA) Urine Ketones Urine Blood Urine Nitrite Ur Leukocyte Esterase Urine RBC Urine WBC Ur Squamous Epith Cells Urine Bacteria Hyaline Casts Granular Casts Urine Mucus Ethyl Alcohol COVID-19 (JUDITH) COVID-19 Clin Com Hep Bs Antigen Hep Bs Antibody Hep B Core Total Ab Hepatitis C Ab (EIA) 03/14/21 03/14/21 03/15/21 08:52 21:35 08:33 WBC RBC Hgb Hct MCV MCH MCHC RDW Plt Count MPV Immature Gran % (Auto) Neut % (Auto) Lymph % (Auto) [place] % (Auto) Eos % (Auto) Baso % (Auto) Lymph # (Auto) [place] # (Auto) Eos # (Auto) Baso # (Auto) Abs Immat Gran (auto) Absolute Neuts (auto) Absolute Nucleated RBC Nucleated RBC % (auto) D-Dimer Sodium Potassium Chloride Carbon Dioxide Anion Gap BUN Creatinine Estim Creat Clear Calc Estimated GFR POC Glucose 163 H 140 H 170 H Random Glucose Estimat Average Glucose Hemoglobin A1c % Lactic Acid Calcium Magnesium Total Bilirubin Direct Bilirubin AST ALT Alkaline Phosphatase Ammonia Lactate Dehydrogenase Total Creatine Kinase C-Reactive Protein B-Natriuretic Peptide NT-Pro-B Natriuret Pep Total Protein Albumin Vitamin B12 Folate Procalcitonin Urine Color Urine Appearance Urine pH Ur Specific [employer] Urine Protein Urine Glucose (UA) Urine Ketones Urine Blood Urine Nitrite Ur Leukocyte Esterase Urine RBC Urine WBC Ur Squamous Epith Cells Urine Bacteria Hyaline Casts Granular Casts Urine Mucus Ethyl Alcohol COVID-19 (JUDITH) COVID-19 Clin Com Hep Bs Antigen Hep Bs Antibody Hep B Core Total Ab Hepatitis C Ab (EIA) 03/15/21 03/15/21 03/16/21 17:26 20:20 07:07 WBC RBC Hgb Hct MCV MCH MCHC RDW Plt Count MPV Immature Gran % (Auto) Neut % (Auto) Lymph % (Auto) [place] % (Auto) Eos % (Auto) Baso % (Auto) Lymph # (Auto) [place] # (Auto) Eos # (Auto) Baso # (Auto) Abs Immat Gran (auto) Absolute Neuts (auto) Absolute Nucleated RBC Nucleated RBC % (auto) D-Dimer Sodium Potassium Chloride Carbon Dioxide Anion Gap BUN Creatinine Estim Creat Clear Calc Estimated GFR POC Glucose 130 H 227 H 162 H Random Glucose Estimat Average Glucose Hemoglobin A1c % Lactic Acid Calcium Magnesium Total Bilirubin Direct Bilirubin AST ALT Alkaline Phosphatase Ammonia Lactate Dehydrogenase Total Creatine Kinase C-Reactive Protein B-Natriuretic Peptide NT-Pro-B Natriuret Pep Total Protein Albumin Vitamin B12 Folate Procalcitonin Urine Color Urine Appearance Urine pH Ur Specific [employer] Urine Protein Urine Glucose (UA) Urine Ketones Urine Blood Urine Nitrite Ur Leukocyte Esterase Urine RBC Urine WBC Ur Squamous Epith Cells Urine Bacteria Hyaline Casts Granular Casts Urine Mucus Ethyl Alcohol COVID-19 (JUDITH) COVID-19 Clin Com Hep Bs Antigen Hep Bs Antibody Hep B Core Total Ab Hepatitis C Ab (EIA) 03/16/21 03/16/21 03/16/21 12:23 16:42 21:18 WBC RBC Hgb Hct MCV MCH MCHC RDW Plt Count MPV Immature Gran % (Auto) Neut % (Auto) Lymph % (Auto) [place] % (Auto) Eos % (Auto) Baso % (Auto) Lymph # (Auto) [place] # (Auto) Eos # (Auto) Baso # (Auto) Abs Immat Gran (auto) Absolute Neuts (auto) Absolute Nucleated RBC Nucleated RBC % (auto) D-Dimer Sodium Potassium Chloride Carbon Dioxide Anion Gap BUN Creatinine Estim Creat Clear Calc Estimated GFR POC Glucose 145 H 171 H 179 H Random Glucose Estimat Average Glucose Hemoglobin A1c % Lactic Acid Calcium Magnesium Total Bilirubin Direct Bilirubin AST ALT Alkaline Phosphatase Ammonia Lactate Dehydrogenase Total Creatine Kinase C-Reactive Protein B-Natriuretic Peptide NT-Pro-B Natriuret Pep Total Protein Albumin Vitamin B12 Folate Procalcitonin Urine Color Urine Appearance Urine pH Ur Specific [employer] Urine Protein Urine Glucose (UA) Urine Ketones Urine Blood Urine Nitrite Ur Leukocyte Esterase Urine RBC Urine WBC Ur Squamous Epith Cells Urine Bacteria Hyaline Casts Granular Casts Urine Mucus Ethyl Alcohol COVID-19 (JUDITH) COVID-19 Clin Com Hep Bs Antigen Hep Bs Antibody Hep B Core Total Ab Hepatitis C Ab (EIA) 03/17/21 03/17/21 03/17/21 05:57 12:32 16:39 WBC RBC Hgb Hct MCV MCH MCHC RDW Plt Count MPV Immature Gran % (Auto) Neut % (Auto) Lymph % (Auto) [place] % (Auto) Eos % (Auto) Baso % (Auto) Lymph # (Auto) [place] # (Auto) Eos # (Auto) Baso # (Auto) Abs Immat Gran (auto) Absolute Neuts (auto) Absolute Nucleated RBC Nucleated RBC % (auto) D-Dimer Sodium Potassium Chloride Carbon Dioxide Anion Gap BUN Creatinine Estim Creat Clear Calc Estimated GFR POC Glucose 138 H 175 H 164 H Random Glucose Estimat Average Glucose Hemoglobin A1c % Lactic Acid Calcium Magnesium Total Bilirubin Direct Bilirubin AST ALT Alkaline Phosphatase Ammonia Lactate Dehydrogenase Total Creatine Kinase C-Reactive Protein B-Natriuretic Peptide NT-Pro-B Natriuret Pep Total Protein Albumin Vitamin B12 Folate Procalcitonin Urine Color Urine Appearance Urine pH Ur Specific [employer] Urine Protein Urine Glucose (UA) Urine Ketones Urine Blood Urine Nitrite Ur Leukocyte Esterase Urine RBC Urine WBC Ur Squamous Epith Cells Urine Bacteria Hyaline Casts Granular Casts Urine Mucus Ethyl Alcohol COVID-19 (JUDITH) COVID-19 Clin Com Hep Bs Antigen Hep Bs Antibody Hep B Core Total Ab Hepatitis C Ab (EIA) 03/17/21 03/18/21 03/18/21 20:43 06:07 16:26 WBC RBC Hgb Hct MCV MCH MCHC RDW Plt Count MPV Immature Gran % (Auto) Neut % (Auto) Lymph % (Auto) [place] % (Auto) Eos % (Auto) Baso % (Auto) Lymph # (Auto) [place] # (Auto) Eos # (Auto) Baso # (Auto) Abs Immat Gran (auto) Absolute Neuts (auto) Absolute Nucleated RBC Nucleated RBC % (auto) D-Dimer Sodium Potassium Chloride Carbon Dioxide Anion Gap BUN Creatinine Estim Creat Clear Calc Estimated GFR POC Glucose 183 H 165 H 177 H Random Glucose Estimat Average Glucose Hemoglobin A1c % Lactic Acid Calcium Magnesium Total Bilirubin Direct Bilirubin AST ALT Alkaline Phosphatase Ammonia Lactate Dehydrogenase Total Creatine Kinase C-Reactive Protein B-Natriuretic Peptide NT-Pro-B Natriuret Pep Total Protein Albumin Vitamin B12 Folate Procalcitonin Urine Color Urine Appearance Urine pH Ur Specific [employer] Urine Protein Urine Glucose (UA) Urine Ketones Urine Blood Urine Nitrite Ur Leukocyte Esterase Urine RBC Urine WBC Ur Squamous Epith Cells Urine Bacteria Hyaline Casts Granular Casts Urine Mucus Ethyl Alcohol COVID-19 (JUDITH) COVID-19 Clin Com Hep Bs Antigen Hep Bs Antibody Hep B Core Total Ab Hepatitis C Ab (EIA) 03/18/21 03/19/21 03/19/21 20:03 05:56 11:43 WBC RBC Hgb Hct MCV MCH MCHC RDW Plt Count MPV Immature Gran % (Auto) Neut % (Auto) Lymph % (Auto) [place] % (Auto) Eos % (Auto) Baso % (Auto) Lymph # (Auto) [place] # (Auto) Eos # (Auto) Baso # (Auto) Abs Immat Gran (auto) Absolute Neuts (auto) Absolute Nucleated RBC Nucleated RBC % (auto) D-Dimer Sodium Potassium Chloride Carbon Dioxide Anion Gap BUN Creatinine Estim Creat Clear Calc Estimated GFR POC Glucose 229 H 171 H 170 H Random Glucose Estimat Average Glucose Hemoglobin A1c % Lactic Acid Calcium Magnesium Total Bilirubin Direct Bilirubin AST ALT Alkaline Phosphatase Ammonia Lactate Dehydrogenase Total Creatine Kinase C-Reactive Protein B-Natriuretic Peptide NT-Pro-B Natriuret Pep Total Protein Albumin Vitamin B12 Folate Procalcitonin Urine Color Urine Appearance Urine pH Ur Specific [employer] Urine Protein Urine Glucose (UA) Urine Ketones Urine Blood Urine Nitrite Ur Leukocyte Esterase Urine RBC Urine WBC Ur Squamous Epith Cells Urine Bacteria Hyaline Casts Granular Casts Urine Mucus Ethyl Alcohol COVID-19 (JUDITH) COVID-19 Clin Com Hep Bs Antigen Hep Bs Antibody Hep B Core Total Ab Hepatitis C Ab (EIA) 03/19/21 03/19/21 03/20/21 16:33 20:49 06:28 WBC RBC Hgb Hct MCV MCH MCHC RDW Plt Count MPV Immature Gran % (Auto) Neut % (Auto) Lymph % (Auto) [place] % (Auto) Eos % (Auto) Baso % (Auto) Lymph # (Auto) [place] # (Auto) Eos # (Auto) Baso # (Auto) Abs Immat Gran (auto) Absolute Neuts (auto) Absolute Nucleated RBC Nucleated RBC % (auto) D-Dimer Sodium Potassium Chloride Carbon Dioxide Anion Gap BUN Creatinine Estim Creat Clear Calc Estimated GFR POC Glucose 230 H 203 H 179 H Random Glucose Estimat Average Glucose Hemoglobin A1c % Lactic Acid Calcium Magnesium Total Bilirubin Direct Bilirubin AST ALT Alkaline Phosphatase Ammonia Lactate Dehydrogenase Total Creatine Kinase C-Reactive Protein B-Natriuretic Peptide NT-Pro-B Natriuret Pep Total Protein Albumin Vitamin B12 Folate Procalcitonin Urine Color Urine Appearance Urine pH Ur Specific [employer] Urine Protein Urine Glucose (UA) Urine Ketones Urine Blood Urine Nitrite Ur Leukocyte Esterase Urine RBC Urine WBC Ur Squamous Epith Cells Urine Bacteria Hyaline Casts Granular Casts Urine Mucus Ethyl Alcohol COVID-19 (JUDITH) COVID-19 Clin Com Hep Bs Antigen Hep Bs Antibody Hep B Core Total Ab Hepatitis C Ab (EIA) 03/20/21 03/20/21 03/20/21 08:02 11:24 16:35 WBC RBC Hgb Hct MCV MCH MCHC RDW Plt Count MPV Immature Gran % (Auto) Neut % (Auto) Lymph % (Auto) [place] % (Auto) Eos % (Auto) Baso % (Auto) Lymph # (Auto) [place] # (Auto) Eos # (Auto) Baso # (Auto) Abs Immat Gran (auto) Absolute Neuts (auto) Absolute Nucleated RBC Nucleated RBC % (auto) D-Dimer Sodium Potassium Chloride Carbon Dioxide Anion Gap BUN Creatinine Estim Creat Clear Calc Estimated GFR POC Glucose 172 H 388 H* 135 H Random Glucose Estimat Average Glucose Hemoglobin A1c % Lactic Acid Calcium Magnesium Total Bilirubin Direct Bilirubin AST ALT Alkaline Phosphatase Ammonia Lactate Dehydrogenase Total Creatine Kinase C-Reactive Protein B-Natriuretic Peptide NT-Pro-B Natriuret Pep Total Protein Albumin Vitamin B12 Folate Procalcitonin Urine Color Urine Appearance Urine pH Ur Specific [employer] Urine Protein Urine Glucose (UA) Urine Ketones Urine Blood Urine Nitrite Ur Leukocyte Esterase Urine RBC Urine WBC Ur Squamous Epith Cells Urine Bacteria Hyaline Casts Granular Casts Urine Mucus Ethyl Alcohol COVID-19 (JUDITH) COVID-19 Clin Com Hep Bs Antigen Hep Bs Antibody Hep B Core Total Ab Hepatitis C Ab (EIA) 03/20/21 03/21/21 03/21/21 20:23 06:49 12:18 WBC RBC Hgb Hct MCV MCH MCHC RDW Plt Count MPV Immature Gran % (Auto) Neut % (Auto) Lymph % (Auto) [place] % (Auto) Eos % (Auto) Baso % (Auto) Lymph # (Auto) [place] # (Auto) Eos # (Auto) Baso # (Auto) Abs Immat Gran (auto) Absolute Neuts (auto) Absolute Nucleated RBC Nucleated RBC % (auto) D-Dimer Sodium Potassium Chloride Carbon Dioxide Anion Gap BUN Creatinine Estim Creat Clear Calc Estimated GFR POC Glucose 161 H 174 H 238 H Random Glucose Estimat Average Glucose Hemoglobin A1c % Lactic Acid Calcium Magnesium Total Bilirubin Direct Bilirubin AST ALT Alkaline Phosphatase Ammonia Lactate Dehydrogenase Total Creatine Kinase C-Reactive Protein B-Natriuretic Peptide NT-Pro-B Natriuret Pep Total Protein Albumin Vitamin B12 Folate Procalcitonin Urine Color Urine Appearance Urine pH Ur Specific [employer] Urine Protein Urine Glucose (UA) Urine Ketones Urine Blood Urine Nitrite Ur Leukocyte Esterase Urine RBC Urine WBC Ur Squamous Epith Cells Urine Bacteria Hyaline Casts Granular Casts Urine Mucus Ethyl Alcohol COVID-19 (JUDITH) COVID-19 Clin Com Hep Bs Antigen Hep Bs Antibody Hep B Core Total Ab Hepatitis C Ab (EIA) 03/21/21 03/21/21 03/22/21 16:57 20:25 06:18 WBC RBC Hgb Hct MCV MCH MCHC RDW Plt Count MPV Immature Gran % (Auto) Neut % (Auto) Lymph % (Auto) [place] % (Auto) Eos % (Auto) Baso % (Auto) Lymph # (Auto) [place] # (Auto) Eos # (Auto) Baso # (Auto) Abs Immat Gran (auto) Absolute Neuts (auto) Absolute Nucleated RBC Nucleated RBC % (auto) D-Dimer Sodium Potassium Chloride Carbon Dioxide Anion Gap BUN Creatinine Estim Creat Clear Calc Estimated GFR POC Glucose 178 H 157 H 195 H Random Glucose Estimat Average Glucose Hemoglobin A1c % Lactic Acid Calcium Magnesium Total Bilirubin Direct Bilirubin AST ALT Alkaline Phosphatase Ammonia Lactate Dehydrogenase Total Creatine Kinase C-Reactive Protein B-Natriuretic Peptide NT-Pro-B Natriuret Pep Total Protein Albumin Vitamin B12 Folate Procalcitonin Urine Color Urine Appearance Urine pH Ur Specific [employer] Urine Protein Urine Glucose (UA) Urine Ketones Urine Blood Urine Nitrite Ur Leukocyte Esterase Urine RBC Urine WBC Ur Squamous Epith Cells Urine Bacteria Hyaline Casts Granular Casts Urine Mucus Ethyl Alcohol COVID-19 (JUDITH) COVID-19 Clin Com Hep Bs Antigen Hep Bs Antibody Hep B Core Total Ab Hepatitis C Ab (EIA) Assessment and Plan Assessment Anesthesia Assessment: Anesthesia Plan Discussed and Chart Reviewed Final Anesthetic Review Family History of Problems with Anesthesia: No History of Problems with Anesthesia: No NPO: Yes ASA Class: III Final Preanesthetic Review: No Changes in Pt Med Stat and Consent Obtained/Reviewed Patient Risk: Intermediate Procedure Risk: Intermediate Anesthetic Plan Anesthetic Plan: GA Disposition: Standard PACU
[2021-03-22] MEDS: Insulin Lispro 100 UNIT/ML 3 ML VIAL SUBCUT ×3 (09:22→20:21)
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
[2021-03-22] MEDS: LORazepam 1 MG TABLET 2 MG PO ×2 (09:23→20:22)
[2021-03-22] MEDS: Multivitamin TABLET 1 TAB PO (09:23)
[2021-03-22] MEDS: metFORMIN HCl 1,000 MG TABLET 1000 MG PO ×2 (09:24→16:37)
[2021-03-22] MEDS: OLANZapine 2.5 MG TABLET PO (09:24)
[2021-03-22 12:04] LABS: Glucose, Whole Blood 208 mg/dL (60-115)
[2021-03-22 18:02] LABS: Glucose, Whole Blood 144 mg/dL (60-115)
[2021-03-22] MEDS: OLANZapine 5 MG TABLET PO (20:23)
[2021-03-22] MEDS: Atorvastatin Calcium 20 MG TABLET PO (20:23)
[2021-03-22 20:36] LABS: Glucose, Whole Blood 254 mg/dL (60-115)
[2021-03-23 06:54] LABS: Glucose, Whole Blood 248 mg/dL (60-115)
[2021-03-23] MEDS: Insulin Lispro 100 UNIT/ML 3 ML VIAL SUBCUT ×3 (09:24→17:04)
[2021-03-23] MEDS: metFORMIN HCl 1,000 MG TABLET 1000 MG PO ×2 (09:25→17:12)
[2021-03-23] MEDS: LORazepam 1 MG TABLET 2 MG PO ×2 (09:25→22:00)
[2021-03-23] MEDS: Multivitamin TABLET 1 TAB PO (09:25)
[2021-03-23] MEDS: OLANZapine 2.5 MG TABLET PO (09:25)
[2021-03-23 11:45] LABS: Glucose, Whole Blood 176 mg/dL (60-115)
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
[2021-03-23 17:23] LABS: Glucose, Whole Blood 180 mg/dL (60-115)
[2021-03-23 18:30] VITALS: BP 128/79; PULSE 112; TEMP 36.2; O2SAT 98
[2021-03-23] MEDS: Atorvastatin Calcium 20 MG TABLET PO (22:00)
[2021-03-23] MEDS: OLANZapine 5 MG TABLET PO (22:00)
[2021-03-23 22:25] LABS: Glucose, Whole Blood 148 mg/dL (60-115)
[2021-03-24] VITALS (8 sets, daily range): BP systolic 111–142; BP diastolic 65–83; PULSE 66–107; RESP 16–20; TEMP 35.6–36.6; O2SAT 92–99
[2021-03-24 05:54] LABS: Glucose, Whole Blood 179 mg/dL (60-115)
--- NOTE | 2021-03-24 07:55 | MHC.SHP ---
Pre-Procedural Eval Section A Date of Service: 03/24/21 The patient is an INPATIENT: Yes Changes since office visit: No Cold of Flu in the past 2 weeks, No New Medical Problems, No Changes in Medication and No Patient answered all questions The History & Physical has been completed within 30 days and I have reviewed it.: Yes Section B Chief Complaint: acute psychosis, pre ECT assessment Allergies: Allergies Allergy/AdvReac Type Severity Reaction Status Date / Time No Known Allergies Allergy Unverified 03/05/20 17:38 [No Known Allergies*] Plan I have reviewed the history and physical and performed a pertinent physical examination on my patient. No changes have occurred unless specified.
--- NOTE | 2021-03-24 07:56 | HO.ANESPROP2 ---
[facility] Active Problems Active Problems: All Active Problems (Updated 03/12/21 @ 15:56 by Chang Mason DO) Pre-op evaluation (Acute) Hypernatremia (Acute) Hypokalemia, inadequate intake (Acute) Preop cardiovascular exam (Acute) Rhabdomyolysis (Acute) Bipolar I disorder with catatonia (Acute) Catatonic excitement (Acute) Bipolar disorder (Acute) Type 2 diabetes mellitus (Chronic) Past Medical History Medical History Bipolar 1 disorder Depression Diabetes Family History Family history of problems with anesthesia: No Surgical History History of Problems with Anesthesia: No Social History Social History Household Members: Spouse Housing: Unknown / Unable to assess Do you presently have visiting nurse or other home services: No Unable to assess alcohol history related to: Unable to respond and Unknown Patient Tobacco Use Status: Tobacco use Unknown Smoked in Last 30 Days: No Use of substances other than those prescribed or required for medical reasons: Unable to respond Currently Displaying Signs/Symptoms of Drug Intoxication Withdrawal: No Are you DNR?: No Advance Directives: No Advance Directives Information Provided: No Advance Directives on File: No Do you have thoughts of harming others: None Do you have a plan to hurt others: No Plan Recently lost weight without trying: No Nutrition Risks: Difficulty chewing and Difficulty swallowing Poor oral hygiene: Yes service: No Sexual orientation: Straight/Heterosexual Meds Allergies Allergy/AdvReac Type Severity Reaction Status Date / Time No Known Allergies Allergy Unverified 03/05/20 17:38 [No Known Allergies*] Active Medications: Current Medications Acetaminophen (Acetaminophen 325 Mg Tablet) 650 mg PO Q6H PRN PRN Reason: Headache/Pain Mild Scale (1-3) Acetaminophen (Acetaminophen 325 Mg Tablet) 650 mg PO ONCE PRN PRN Reason: Pain, Mild (Pain Scale 1-3) Al Hydroxide/Mg Hydroxide (Magnesium Hydrox/Alum Hydrox 30 Ml Oral.Susp) 30 ml PO Q6H PRN PRN Reason: Heartburn/Nausea Atorvastatin Calcium (Atorvastatin Calcium 20 Mg Tablet) 20 mg PO BEDTIME KATEY Last Admin: 03/23/21 22:00 Dose: 20 mg Documented by: Glucose (Glucose Gel 15 Gm Gel..Gram.) 15 gm PO Q15M PRN; Protocol PRN Reason: per Hypoglycemia Standing Ord. Lactated Ringer's (Lr) 1,000 mls @ 50 mls/hr IVCONT .Q20H [facility] Insulin Human Lispro (Insulin Lispro 100 Unit/Ml 3 Ml Vial) 0 unit SUBCUT QIDACHS [facility]; Protocol Last Admin: 03/23/21 21:59 Dose: Not Given Documented by: Lorazepam (Lorazepam 1 Mg Tablet) 2 mg PO BID [facility] Last Admin: 03/23/21 22:00 Dose: 2 mg Documented by: Magnesium Hydroxide (Milk Of Magnesia 30 Ml Oral.Susp) 30 ml PO DAILY PRN PRN Reason: Constipation Metformin HCl (Metformin Hcl 1,000 Mg Tablet) 1,000 mg PO BIDWM [facility] Last Admin: 03/23/21 17:12 Dose: 1,000 mg Documented by: Multivitamins/Vitamin C (Multivitamin Tablet) 1 tab PO DAILY [facility] Last Admin: 03/23/21 09:25 Dose: 1 tab Documented by: Nicotine Polacrilex (Nicotine Polacrilex 2 Mg Gum) 4 mg BUCCAL Q2H PRN PRN Reason: Nicotine Cravings Last Admin: 03/09/21 09:46 Dose: 4 mg Documented by: Olanzapine (Olanzapine 2.5 Mg Tablet) 2.5 mg PO DAILY [facility] Last Admin: 03/23/21 09:25 Dose: 2.5 mg Documented by: Olanzapine (Olanzapine 5 Mg Tablet) 5 mg PO BEDTIME [facility] Last Admin: 03/23/21 22:00 Dose: 5 mg Documented by: Home Medications Medication Instructions Recorded Confirmed Last Taken Type atorvastatin 20 mg tablet 1 tab PO BEDTIME 03/01/21 03/01/21 02/28/21 History empagliflozin 10 mg tablet 1 tab PO QAM 03/01/21 03/01/21 02/28/21 History (Jardiance) glipizide 10 mg tablet, extended 1 tab PO DAILY 03/01/21 03/01/21 02/28/21 History release 24 hr lorazepam 1 mg tablet 1 mg PO TID 03/01/21 03/01/21 03/01/21 History metformin 1,000 mg tablet 1 tab PO BID 03/01/21 03/01/21 02/28/21 History multivitamin 1 tab PO DAILY 03/01/21 03/01/21 02/28/21 History olanzapine 10 mg tablet 10 mg PO BEDTIME 03/01/21 03/01/21 Unknown History sertraline 100 mg tablet 2 tab PO QAM 03/01/21 03/01/21 03/01/21 History Exam Exam Date and Time: March 24, 2021 0756 Height,Weight and Vital Signs: Height 6 ft 1 in Weight 108.862 kg Last Vital Signs Temp 96.8 F 03/24/21 06:40 Pulse 92 03/24/21 06:40 Resp 16 03/24/21 06:40 BP 122/81 03/24/21 06:40 Pulse Ox 94 03/24/21 06:40 Pertinent Lab Results Pertinent Lab Results: Laboratory Tests 03/01/21 03/01/21 03/01/21 14:37 14:49 14:49 WBC 11.7 H RBC 5.27 Hgb 14.5 Hct 44.2 MCV 83.9 MCH 27.5 MCHC 32.8 RDW 13.9 Plt Count 277 MPV 11.0 Immature Gran % (Auto) 0.6 H Neut % (Auto) 78.6 H Lymph % (Auto) 13.9 L [place] % (Auto) 6.6 Eos % (Auto) 0.0 Baso % (Auto) 0.3 Lymph # (Auto) 1.6 [place]ink[place] # (Auto) 0.8 Eos # (Auto) 0.0 Baso # (Auto) 0.0 Abs Immat Gran (auto) 0.07 H Absolute Neuts (auto) 9.2 H Absolute Nucleated RBC 0.000 Nucleated RBC % (auto) 0.0 D-Dimer Sodium 143 Potassium 4.0 Chloride 107 Carbon Dioxide 21 L Anion Gap 19 BUN 30 H Creatinine 1.16 Estim Creat Clear Calc 87.0 Estimated GFR > 60 POC Glucose Random Glucose 141 H Estimat Average Glucose Hemoglobin A1c % Lactic Acid Calcium 10.6 H Magnesium Total Bilirubin 0.5 Direct Bilirubin 0.2 AST 22 ALT 46 H Alkaline Phosphatase 105 Ammonia Lactate Dehydrogenase Total Creatine Kinase C-Reactive Protein B-Natriuretic Peptide NT-Pro-B Natriuret Pep Total Protein 8.2 H Albumin 5.5 H Vitamin B12 Folate Procalcitonin Urine Color Urine Appearance Urine pH Ur Specific [place] Urine Protein Urine Glucose (UA) Urine Ketones Urine Blood Urine Nitrite Ur Leukocyte Esterase Urine RBC Urine WBC Ur Squamous Epith Cells Urine Bacteria Hyaline Casts Granular Casts Urine Mucus Ethyl Alcohol COVID-19 (JUDITH) Negative COVID-19 Clin Com See Note Hep Bs Antigen Hep Bs Antibody Hep B Core Total Ab Hepatitis C Ab (EIA) 03/01/21 03/02/21 03/02/21 14:49 00:59 01:01 WBC RBC Hgb Hct MCV MCH MCHC RDW Plt Count MPV Immature Gran % (Auto) Neut % (Auto) Lymph % (Auto) [place] % (Auto) Eos % (Auto) Baso % (Auto) Lymph # (Auto) [place] # (Auto) Eos # (Auto) Baso # (Auto) Abs Immat Gran (auto) Absolute Neuts (auto) Absolute Nucleated RBC Nucleated RBC % (auto) D-Dimer Sodium Potassium Chloride Carbon Dioxide Anion Gap BUN Creatinine Estim Creat Clear Calc Estimated GFR POC Glucose 155 H 161 H Random Glucose Estimat Average Glucose Hemoglobin A1c % Lactic Acid Calcium Magnesium Total Bilirubin Direct Bilirubin AST ALT Alkaline Phosphatase Ammonia Lactate Dehydrogenase Total Creatine Kinase C-Reactive Protein B-Natriuretic Peptide NT-Pro-B Natriuret Pep Total Protein Albumin Vitamin B12 Folate Procalcitonin Urine Color Urine Appearance Urine pH Ur Specific [place] Urine Protein Urine Glucose (UA) Urine Ketones Urine Blood Urine Nitrite Ur Leukocyte Esterase Urine RBC Urine WBC Ur Squamous Epith Cells Urine Bacteria Hyaline Casts Granular Casts Urine Mucus Ethyl Alcohol < 10 COVID-19 (JUDITH) COVID-19 Clin Com Hep Bs Antigen Hep Bs Antibody Hep B Core Total Ab Hepatitis C Ab (EIA) 03/02/21 03/03/21 03/03/21 09:30 12:36 12:36 WBC 11.8 H RBC 4.76 Hgb 13.1 L Hct 40.5 L MCV 85.1 MCH 27.5 MCHC 32.3 RDW 14.0 Plt Count 265 MPV 10.6 Immature Gran % (Auto) 0.5 H Neut % (Auto) 74.8 H Lymph % (Auto) 16.6 L [place] % (Auto) 7.8 Eos % (Auto) 0.0 Baso % (Auto) 0.3 Lymph # (Auto) 2.0 [place]ink[place] # (Auto) 0.9 Eos # (Auto) 0.0 Baso # (Auto) 0.0 Abs Immat Gran (auto) 0.06 H Absolute Neuts (auto) 8.8 H Absolute Nucleated RBC 0.000 Nucleated RBC % (auto) 0.0 D-Dimer Sodium 148 H Potassium 3.5 Chloride 114 H Carbon Dioxide 20 L Anion Gap 18 BUN 33 H Creatinine 1.07 Estim Creat Clear Calc 94.3 Estimated GFR > 60 POC Glucose 214 H Random Glucose Estimat Average Glucose Hemoglobin A1c % Lactic Acid Calcium Magnesium Total Bilirubin Direct Bilirubin AST ALT Alkaline Phosphatase Ammonia Lactate Dehydrogenase Total Creatine Kinase C-Reactive Protein B-Natriuretic Peptide NT-Pro-B Natriuret Pep Total Protein Albumin Vitamin B12 Folate Procalcitonin Urine Color Urine Appearance Urine pH Ur Specific [place] Urine Protein Urine Glucose (UA) Urine Ketones Urine Blood Urine Nitrite Ur Leukocyte Esterase Urine RBC Urine WBC Ur Squamous Epith Cells Urine Bacteria Hyaline Casts Granular Casts Urine Mucus Ethyl Alcohol COVID-19 (JUDITH) COVID-19 Clin Com Hep Bs Antigen Hep Bs Antibody Hep B Core Total Ab Hepatitis C Ab (EIA) 03/03/21 03/03/21 03/03/21 12:36 12:36 12:36 WBC RBC Hgb Hct MCV MCH MCHC RDW Plt Count MPV Immature Gran % (Auto) Neut % (Auto) Lymph % (Auto) [place] % (Auto) Eos % (Auto) Baso % (Auto) Lymph # (Auto) [place] # (Auto) Eos # (Auto) Baso # (Auto) Abs Immat Gran (auto) Absolute Neuts (auto) Absolute Nucleated RBC Nucleated RBC % (auto) D-Dimer Sodium Potassium Chloride Carbon Dioxide Anion Gap BUN Creatinine Estim Creat Clear Calc Estimated GFR POC Glucose Random Glucose Estimat Average Glucose Hemoglobin A1c % Lactic Acid Calcium 10.3 H Magnesium Total Bilirubin 0.8 Direct Bilirubin 0.3 AST 47 H D ALT 37 Alkaline Phosphatase 91 Ammonia 29 Lactate Dehydrogenase Total Creatine Kinase C-Reactive Protein B-Natriuretic Peptide NT-Pro-B Natriuret Pep Total Protein 7.1 Albumin 5.0 Vitamin B12 Folate Procalcitonin Urine Color Urine Appearance Urine pH Ur Specific [place] Urine Protein Urine Glucose (UA) Urine Ketones Urine Blood Urine Nitrite Ur Leukocyte Esterase Urine RBC Urine WBC Ur Squamous Epith Cells Urine Bacteria Hyaline Casts Granular Casts Urine Mucus Ethyl Alcohol COVID-19 (JUDITH) COVID-19 Clin Com Hep Bs Antigen Hep Bs Antibody Hep B Core Total Ab Hepatitis C Ab (EIA) 03/03/21 03/04/21 03/04/21 20:18 07:54 07:54 WBC RBC Hgb Hct MCV MCH MCHC RDW Plt Count MPV Immature Gran % (Auto) Neut % (Auto) Lymph % (Auto) [place] % (Auto) Eos % (Auto) Baso % (Auto) Lymph # (Auto) [place] # (Auto) Eos # (Auto) Baso # (Auto) Abs Immat Gran (auto) Absolute Neuts (auto) Absolute Nucleated RBC Nucleated RBC % (auto) D-Dimer Sodium 146 H Potassium 4.0 Chloride 111 H Carbon Dioxide 18 L Anion Gap 21 H BUN 41 H Creatinine 1.35 Estim Creat Clear Calc 74.8 Estimated GFR 56 POC Glucose 147 H Random Glucose 183 H Estimat Average Glucose 146 Hemoglobin A1c % 6.7 Lactic Acid Calcium 10.8 H Magnesium Total Bilirubin Direct Bilirubin AST ALT Alkaline Phosphatase Ammonia Lactate Dehydrogenase Total Creatine Kinase C-Reactive Protein B-Natriuretic Peptide NT-Pro-B Natriuret Pep Total Protein Albumin Vitamin B12 Folate Procalcitonin Urine Color Urine Appearance Urine pH Ur Specific [place] Urine Protein Urine Glucose (UA) Urine Ketones Urine Blood Urine Nitrite Ur Leukocyte Esterase Urine RBC Urine WBC Ur Squamous Epith Cells Urine Bacteria Hyaline Casts Granular Casts Urine Mucus Ethyl Alcohol COVID-19 (JUDITH) COVID-19 Clin Com Hep Bs Antigen Hep Bs Antibody Hep B Core Total Ab Hepatitis C Ab (EIA) 03/04/21 03/04/21 03/04/21 08:05 12:21 17:08 WBC RBC Hgb Hct MCV MCH MCHC RDW Plt Count MPV Immature Gran % (Auto) Neut % (Auto) Lymph % (Auto) [place] % (Auto) Eos % (Auto) Baso % (Auto) Lymph # (Auto) [place] # (Auto) Eos # (Auto) Baso # (Auto) Abs Immat Gran (auto) Absolute Neuts (auto) Absolute Nucleated RBC Nucleated RBC % (auto) D-Dimer Sodium Potassium Chloride Carbon Dioxide Anion Gap BUN Creatinine Estim Creat Clear Calc Estimated GFR POC Glucose 186 H 191 H 174 H Random Glucose Estimat Average Glucose Hemoglobin A1c % Lactic Acid Calcium Magnesium Total Bilirubin Direct Bilirubin AST ALT Alkaline Phosphatase Ammonia Lactate Dehydrogenase Total Creatine Kinase C-Reactive Protein B-Natriuretic Peptide NT-Pro-B Natriuret Pep Total Protein Albumin Vitamin B12 Folate Procalcitonin Urine Color Urine Appearance Urine pH Ur Specific [place] Urine Protein Urine Glucose (UA) Urine Ketones Urine Blood Urine Nitrite Ur Leukocyte Esterase Urine RBC Urine WBC Ur Squamous Epith Cells Urine Bacteria Hyaline Casts Granular Casts Urine Mucus Ethyl Alcohol COVID-19 (JUDITH) COVID-19 Clin Com Hep Bs Antigen Hep Bs Antibody Hep B Core Total Ab Hepatitis C Ab (EIA) 03/04/21 03/05/21 03/05/21 21:42 08:28 09:32 WBC 8.9 RBC 4.83 Hgb 13.2 L Hct 40.6 L MCV 84.1 MCH 27.3 MCHC 32.5 RDW 13.9 Plt Count 252 MPV 11.5 Immature Gran % (Auto) 0.9 H Neut % (Auto) 73.6 H Lymph % (Auto) 18.2 L [place]ink[place] % (Auto) 7.1 Eos % (Auto) 0.0 Baso % (Auto) 0.2 Lymph # (Auto) 1.6 [place] # (Auto) 0.6 Eos # (Auto) 0.0 Baso # (Auto) 0.0 Abs Immat Gran (auto) 0.08 H Absolute Neuts (auto) 6.5 Absolute Nucleated RBC 0.000 Nucleated RBC % (auto) 0.0 D-Dimer Sodium Potassium Chloride Carbon Dioxide Anion Gap BUN Creatinine Estim Creat Clear Calc Estimated GFR POC Glucose 212 H 179 H Random Glucose Estimat Average Glucose Hemoglobin A1c % Lactic Acid Calcium Magnesium Total Bilirubin Direct Bilirubin AST ALT Alkaline Phosphatase Ammonia Lactate Dehydrogenase Total Creatine Kinase C-Reactive Protein B-Natriuretic Peptide NT-Pro-B Natriuret Pep Total Protein Albumin Vitamin B12 Folate Procalcitonin Urine Color Urine Appearance Urine pH Ur Specific [place] Urine Protein Urine Glucose (UA) Urine Ketones Urine Blood Urine Nitrite Ur Leukocyte Esterase Urine RBC Urine WBC Ur Squamous Epith Cells Urine Bacteria Hyaline Casts Granular Casts Urine Mucus Ethyl Alcohol COVID-19 (JUDITH) COVID-19 Clin Com Hep Bs Antigen Hep Bs Antibody Hep B Core Total Ab Hepatitis C Ab (EIA) 03/05/21 03/05/21 03/06/21 09:32 17:32 06:42 WBC RBC Hgb Hct MCV MCH MCHC RDW Plt Count MPV Immature Gran % (Auto) Neut % (Auto) Lymph % (Auto) [place] % (Auto) Eos % (Auto) Baso % (Auto) Lymph # (Auto) [place] # (Auto) Eos # (Auto) Baso # (Auto) Abs Immat Gran (auto) Absolute Neuts (auto) Absolute Nucleated RBC Nucleated RBC % (auto) D-Dimer Sodium 149 H Potassium 3.3 Chloride 116 H Carbon Dioxide 24 Anion Gap 12 BUN 36 H Creatinine 1.09 Estim Creat Clear Calc 92.6 Estimated GFR > 60 POC Glucose 241 H 172 H Random Glucose Estimat Average Glucose Hemoglobin A1c % Lactic Acid Calcium Magnesium Total Bilirubin 0.7 Direct Bilirubin 0.3 AST 72 H ALT 51 H Alkaline Phosphatase 88 Ammonia Lactate Dehydrogenase 235 Total Creatine Kinase 1870 H C-Reactive Protein B-Natriuretic Peptide NT-Pro-B Natriuret Pep Total Protein 6.6 Albumin 4.6 Vitamin B12 Folate Procalcitonin Urine Color Urine Appearance Urine pH Ur Specific [place] Urine Protein Urine Glucose (UA) Urine Ketones Urine Blood Urine Nitrite Ur Leukocyte Esterase Urine RBC Urine WBC Ur Squamous Epith Cells Urine Bacteria Hyaline Casts Granular Casts Urine Mucus Ethyl Alcohol COVID-19 (JUDITH) COVID-19 Clin Com Hep Bs Antigen Hep Bs Antibody Hep B Core Total Ab Hepatitis C Ab (EIA) 03/06/21 03/06/21 03/06/21 09:22 09:23 09:23 WBC RBC Hgb Hct MCV MCH MCHC RDW Plt Count MPV Immature Gran % (Auto) Neut % (Auto) Lymph % (Auto) [place] % (Auto) Eos % (Auto) Baso % (Auto) Lymph # (Auto) [place] # (Auto) Eos # (Auto) Baso # (Auto) Abs Immat Gran (auto) Absolute Neuts (auto) Absolute Nucleated RBC Nucleated RBC % (auto) D-Dimer Sodium 150 H Potassium 3.3 Chloride 117 H Carbon Dioxide 20 L Anion Gap 16 BUN 31 H Creatinine 1.22 Estim Creat Clear Calc 82.7 Estimated GFR > 60 POC Glucose Random Glucose 205 H Estimat Average Glucose Hemoglobin A1c % Lactic Acid Calcium 9.4 D Magnesium Total Bilirubin 1.0 Direct Bilirubin 0.4 AST 73 H ALT 65 H Alkaline Phosphatase 91 Ammonia Lactate Dehydrogenase Total Creatine Kinase 1633 H C-Reactive Protein B-Natriuretic Peptide NT-Pro-B Natriuret Pep Total Protein 6.8 Albumin 4.6 Vitamin B12 1285 H Folate 19.3 Procalcitonin Urine Color Urine Appearance Urine pH Ur Specific [place] Urine Protein Urine Glucose (UA) Urine Ketones Urine Blood Urine Nitrite Ur Leukocyte Esterase Urine RBC Urine WBC Ur Squamous Epith Cells Urine Bacteria Hyaline Casts Granular Casts Urine Mucus Ethyl Alcohol COVID-19 (JUDITH) COVID-19 Clin Com Hep Bs Antigen Negative Hep Bs Antibody REACTIVE Hep B Core Total Ab Nonreactive Hepatitis C Ab (EIA) Nonreactive 03/06/21 03/06/21 03/06/21 12:26 16:56 21:37 WBC RBC Hgb Hct MCV MCH MCHC RDW Plt Count MPV Immature Gran % (Auto) Neut % (Auto) Lymph % (Auto) [place] % (Auto) Eos % (Auto) Baso % (Auto) Lymph # (Auto) [place] # (Auto) Eos # (Auto) Baso # (Auto) Abs Immat Gran (auto) Absolute Neuts (auto) Absolute Nucleated RBC Nucleated RBC % (auto) D-Dimer Sodium Potassium Chloride Carbon Dioxide Anion Gap BUN Creatinine Estim Creat Clear Calc Estimated GFR POC Glucose 203 H 217 H 189 H Random Glucose Estimat Average Glucose Hemoglobin A1c % Lactic Acid Calcium Magnesium Total Bilirubin Direct Bilirubin AST ALT Alkaline Phosphatase Ammonia Lactate Dehydrogenase Total Creatine Kinase C-Reactive Protein B-Natriuretic Peptide NT-Pro-B Natriuret Pep Total Protein Albumin Vitamin B12 Folate Procalcitonin Urine Color Urine Appearance Urine pH Ur Specific [place] Urine Protein Urine Glucose (UA) Urine Ketones Urine Blood Urine Nitrite Ur Leukocyte Esterase Urine RBC Urine WBC Ur Squamous Epith Cells Urine Bacteria Hyaline Casts Granular Casts Urine Mucus Ethyl Alcohol COVID-19 (JUDITH) COVID-19 Clin Com Hep Bs Antigen Hep Bs Antibody Hep B Core Total Ab Hepatitis C Ab (EIA) 03/07/21 03/07/21 03/07/21 06:36 08:03 08:23 WBC RBC Hgb Hct MCV MCH MCHC RDW Plt Count MPV Immature Gran % (Auto) Neut % (Auto) Lymph % (Auto) [place] % (Auto) Eos % (Auto) Baso % (Auto) Lymph # (Auto) [place] # (Auto) Eos # (Auto) Baso # (Auto) Abs Immat Gran (auto) Absolute Neuts (auto) Absolute Nucleated RBC Nucleated RBC % (auto) D-Dimer Sodium 147 H Potassium 3.0 L Chloride 113 H Carbon Dioxide 25 Anion Gap 12 BUN 24 H Creatinine 0.86 Estim Creat Clear Calc 117.4 Estimated GFR > 60 POC Glucose 186 H 175 H Random Glucose 200 H Estimat Average Glucose Hemoglobin A1c % Lactic Acid Calcium 8.7 D Magnesium Total Bilirubin Direct Bilirubin AST ALT Alkaline Phosphatase Ammonia Lactate Dehydrogenase Total Creatine Kinase 972 H D C-Reactive Protein B-Natriuretic Peptide NT-Pro-B Natriuret Pep Total Protein Albumin Vitamin B12 Folate Procalcitonin Urine Color Urine Appearance Urine pH Ur Specific [place] Urine Protein Urine Glucose (UA) Urine Ketones Urine Blood Urine Nitrite Ur Leukocyte Esterase Urine RBC Urine WBC Ur Squamous Epith Cells Urine Bacteria Hyaline Casts Granular Casts Urine Mucus Ethyl Alcohol COVID-19 (JUDITH) COVID-19 Clin Com Hep Bs Antigen Hep Bs Antibody Hep B Core Total Ab Hepatitis C Ab (EIA) 03/07/21 03/07/21 03/07/21 13:13 16:35 21:22 WBC RBC Hgb Hct MCV MCH MCHC RDW Plt Count MPV Immature Gran % (Auto) Neut % (Auto) Lymph % (Auto) [place] % (Auto) Eos % (Auto) Baso % (Auto) Lymph # (Auto) [place] # (Auto) Eos # (Auto) Baso # (Auto) Abs Immat Gran (auto) Absolute Neuts (auto) Absolute Nucleated RBC Nucleated RBC % (auto) D-Dimer Sodium Potassium Chloride Carbon Dioxide Anion Gap BUN Creatinine Estim Creat Clear Calc Estimated GFR POC Glucose 165 H 190 H Random Glucose Estimat Average Glucose Hemoglobin A1c % Lactic Acid 0.8 Calcium Magnesium Total Bilirubin Direct Bilirubin AST ALT Alkaline Phosphatase Ammonia Lactate Dehydrogenase Total Creatine Kinase C-Reactive Protein B-Natriuretic Peptide NT-Pro-B Natriuret Pep Total Protein Albumin Vitamin B12 Folate Procalcitonin Urine Color Urine Appearance Urine pH Ur Specific [place] Urine Protein Urine Glucose (UA) Urine Ketones Urine Blood Urine Nitrite Ur Leukocyte Esterase Urine RBC Urine WBC Ur Squamous Epith Cells Urine Bacteria Hyaline Casts Granular Casts Urine Mucus Ethyl Alcohol COVID-19 (JUDITH) COVID-19 Clin Com Hep Bs Antigen Hep Bs Antibody Hep B Core Total Ab Hepatitis C Ab (EIA) 03/07/21 03/07/21 03/07/21 21:22 21:23 21:23 WBC 8.2 RBC 4.37 L Hgb 12.1 L Hct 36.1 L MCV 82.6 MCH 27.7 MCHC 33.5 RDW 13.3 Plt Count 189 MPV 11.2 Immature Gran % (Auto) 0.6 H Neut % (Auto) 65.9 Lymph % (Auto) 25.1 [place] % (Auto) 7.5 Eos % (Auto) 0.7 Baso % (Auto) 0.2 Lymph # (Auto) 2.1 [place] # (Auto) 0.6 Eos # (Auto) 0.1 Baso # (Auto) 0.0 Abs Immat Gran (auto) 0.05 H Absolute Neuts (auto) 5.4 Absolute Nucleated RBC 0.000 Nucleated RBC % (auto) 0.0 D-Dimer 337 Sodium Potassium Chloride Carbon Dioxide Anion Gap BUN Creatinine Estim Creat Clear Calc Estimated GFR POC Glucose Random Glucose Estimat Average Glucose Hemoglobin A1c % Lactic Acid Calcium Magnesium Total Bilirubin Direct Bilirubin AST ALT Alkaline Phosphatase Ammonia Lactate Dehydrogenase Total Creatine Kinase C-Reactive Protein B-Natriuretic Peptide NT-Pro-B Natriuret Pep Total Protein Albumin Vitamin B12 Folate Procalcitonin Urine Color YELLOW Urine Appearance CLEAR Urine pH 6.0 Ur Specific [place] >= 1.030 H Urine Protein TRACE Urine Glucose (UA) >=1000 H Urine Ketones NEG Urine Blood NEG Urine Nitrite NEG Ur Leukocyte Esterase NEG Urine RBC 1-4 Urine WBC 1-4 Ur Squamous Epith Cells 1+ Urine Bacteria 1+ Hyaline Casts 0-2 Granular Casts 0-2 Urine Mucus 2+ Ethyl Alcohol COVID-19 (JUDITH) COVID-19 Clin Com Hep Bs Antigen Hep Bs Antibody Hep B Core Total Ab Hepatitis C Ab (EIA) 03/07/21 03/07/21 03/07/21 21:23 21:23 21:23 WBC RBC Hgb Hct MCV MCH MCHC RDW Plt Count MPV Immature Gran % (Auto) Neut % (Auto) Lymph % (Auto) [place] % (Auto) Eos % (Auto) Baso % (Auto) Lymph # (Auto) [place] # (Auto) Eos # (Auto) Baso # (Auto) Abs Immat Gran (auto) Absolute Neuts (auto) Absolute Nucleated RBC Nucleated RBC % (auto) D-Dimer Sodium 146 H Potassium 2.9 L Chloride 111 H Carbon Dioxide 25 Anion Gap 13 BUN 21 H Creatinine 0.85 Estim Creat Clear Calc 118.8 Estimated GFR > 60 POC Glucose Random Glucose 124 H D Estimat Average Glucose Hemoglobin A1c % Lactic Acid Calcium 8.7 Magnesium Total Bilirubin 0.6 Direct Bilirubin AST 50 H ALT 56 H Alkaline Phosphatase 79 Ammonia Lactate Dehydrogenase Total Creatine Kinase C-Reactive Protein B-Natriuretic Peptide 86 NT-Pro-B Natriuret Pep Cancelled Total Protein 5.5 L Albumin 3.8 Vitamin B12 Folate Procalcitonin Urine Color Urine Appearance Urine pH Ur Specific [place] Urine Protein Urine Glucose (UA) Urine Ketones Urine Blood Urine Nitrite Ur Leukocyte Esterase Urine RBC Urine WBC Ur Squamous Epith Cells Urine Bacteria Hyaline Casts Granular Casts Urine Mucus Ethyl Alcohol COVID-19 (JUDITH) COVID-19 Clin Com Hep Bs Antigen Hep Bs Antibody Hep B Core Total Ab Hepatitis C Ab (EIA) 03/07/21 03/08/21 03/08/21 21:43 06:32 08:19 WBC RBC Hgb Hct MCV MCH MCHC RDW Plt Count MPV Immature Gran % (Auto) Neut % (Auto) Lymph % (Auto) [place] % (Auto) Eos % (Auto) Baso % (Auto) Lymph # (Auto) [place] # (Auto) Eos # (Auto) Baso # (Auto) Abs Immat Gran (auto) Absolute Neuts (auto) Absolute Nucleated RBC Nucleated RBC % (auto) D-Dimer Sodium 143 Potassium 2.9 L Chloride 108 Carbon Dioxide 26 Anion Gap 12 BUN 17 H Creatinine 0.82 Estim Creat Clear Calc 123.1 Estimated GFR > 60 POC Glucose 127 H 144 H Random Glucose 173 H D Estimat Average Glucose Hemoglobin A1c % Lactic Acid Calcium 8.9 Magnesium 2.0 Total Bilirubin Direct Bilirubin AST ALT Alkaline Phosphatase Ammonia Lactate Dehydrogenase Total Creatine Kinase 584 H D C-Reactive Protein 1.08 H B-Natriuretic Peptide NT-Pro-B Natriuret Pep Total Protein Albumin Vitamin B12 Folate Procalcitonin Urine Color Urine Appearance Urine pH Ur Specific [place] Urine Protein Urine Glucose (UA) Urine Ketones Urine Blood Urine Nitrite Ur Leukocyte Esterase Urine RBC Urine WBC Ur Squamous Epith Cells Urine Bacteria Hyaline Casts Granular Casts Urine Mucus Ethyl Alcohol COVID-19 (JUDITH) COVID-19 Clin Com Hep Bs Antigen Hep Bs Antibody Hep B Core Total Ab Hepatitis C Ab (EIA) 03/08/21 03/08/21 03/08/21 08:19 12:50 17:26 WBC RBC Hgb Hct MCV MCH MCHC RDW Plt Count MPV Immature Gran % (Auto) Neut % (Auto) Lymph % (Auto) [place] % (Auto) Eos % (Auto) Baso % (Auto) Lymph # (Auto) [place] # (Auto) Eos # (Auto) Baso # (Auto) Abs Immat Gran (auto) Absolute Neuts (auto) Absolute Nucleated RBC Nucleated RBC % (auto) D-Dimer Sodium Potassium Chloride Carbon Dioxide Anion Gap BUN Creatinine Estim Creat Clear Calc Estimated GFR POC Glucose 174 H 152 H Random Glucose Estimat Average Glucose Hemoglobin A1c % Lactic Acid Calcium Magnesium Total Bilirubin Direct Bilirubin AST ALT Alkaline Phosphatase Ammonia Lactate Dehydrogenase Total Creatine Kinase C-Reactive Protein B-Natriuretic Peptide NT-Pro-B Natriuret Pep Total Protein Albumin Vitamin B12 Folate Procalcitonin 0.08 Urine Color Urine Appearance Urine pH Ur Specific [place] Urine Protein Urine Glucose (UA) Urine Ketones Urine Blood Urine Nitrite Ur Leukocyte Esterase Urine RBC Urine WBC Ur Squamous Epith Cells Urine Bacteria Hyaline Casts Granular Casts Urine Mucus Ethyl Alcohol COVID-19 (JUDITH) COVID-19 Clin Com Hep Bs Antigen Hep Bs Antibody Hep B Core Total Ab Hepatitis C Ab (EIA) 03/08/21 03/09/21 03/09/21 21:02 06:28 08:18 WBC 7.8 RBC 4.39 L Hgb 12.3 L Hct 36.0 L MCV 82.0 MCH 28.0 MCHC 34.2 RDW 13.3 Plt Count 205 MPV 11.5 Immature Gran % (Auto) Neut % (Auto) Lymph % (Auto) [place]ink[place] % (Auto) Eos % (Auto) Baso % (Auto) Lymph # (Auto) [place]ink[place] # (Auto) Eos # (Auto) Baso # (Auto) Abs Immat Gran (auto) Absolute Neuts (auto) Absolute Nucleated RBC 0.000 Nucleated RBC % (auto) 0.0 D-Dimer Sodium Potassium Chloride Carbon Dioxide Anion Gap BUN Creatinine Estim Creat Clear Calc Estimated GFR POC Glucose 197 H 154 H Random Glucose Estimat Average Glucose Hemoglobin A1c % Lactic Acid Calcium Magnesium Total Bilirubin Direct Bilirubin AST ALT Alkaline Phosphatase Ammonia Lactate Dehydrogenase Total Creatine Kinase C-Reactive Protein B-Natriuretic Peptide NT-Pro-B Natriuret Pep Total Protein Albumin Vitamin B12 Folate Procalcitonin Urine Color Urine Appearance Urine pH Ur Specific [place] Urine Protein Urine Glucose (UA) Urine Ketones Urine Blood Urine Nitrite Ur Leukocyte Esterase Urine RBC Urine WBC Ur Squamous Epith Cells Urine Bacteria Hyaline Casts Granular Casts Urine Mucus Ethyl Alcohol COVID-19 (JUDITH) COVID-19 Clin Com Hep Bs Antigen Hep Bs Antibody Hep B Core Total Ab Hepatitis C Ab (EIA) 03/09/21 03/09/21 03/09/21 08:18 08:18 11:46 WBC RBC Hgb Hct MCV MCH MCHC RDW Plt Count MPV Immature Gran % (Auto) Neut % (Auto) Lymph % (Auto) [place] % (Auto) Eos % (Auto) Baso % (Auto) Lymph # (Auto) [place] # (Auto) Eos # (Auto) Baso # (Auto) Abs Immat Gran (auto) Absolute Neuts (auto) Absolute Nucleated RBC Nucleated RBC % (auto) D-Dimer Sodium 144 Potassium 3.2 L Chloride 110 H Carbon Dioxide 26 Anion Gap 11 L BUN 17 H Creatinine 0.85 Estim Creat Clear Calc 118.8 Estimated GFR > 60 POC Glucose 208 H Random Glucose 152 H Estimat Average Glucose Hemoglobin A1c % Lactic Acid Calcium 9.2 Magnesium Total Bilirubin Direct Bilirubin AST ALT Alkaline Phosphatase Ammonia Lactate Dehydrogenase Total Creatine Kinase 299 H D C-Reactive Protein B-Natriuretic Peptide NT-Pro-B Natriuret Pep Total Protein Albumin Vitamin B12 Folate Procalcitonin 0.08 Urine Color Urine Appearance Urine pH Ur Specific [place] Urine Protein Urine Glucose (UA) Urine Ketones Urine Blood Urine Nitrite Ur Leukocyte Esterase Urine RBC Urine WBC Ur Squamous Epith Cells Urine Bacteria Hyaline Casts Granular Casts Urine Mucus Ethyl Alcohol COVID-19 (JUDITH) COVID-19 Clin Com Hep Bs Antigen Hep Bs Antibody Hep B Core Total Ab Hepatitis C Ab (EIA) 03/09/21 03/09/21 03/10/21 16:55 21:50 09:06 WBC RBC Hgb Hct MCV MCH MCHC RDW Plt Count MPV Immature Gran % (Auto) Neut % (Auto) Lymph % (Auto) [place] % (Auto) Eos % (Auto) Baso % (Auto) Lymph # (Auto) [place] # (Auto) Eos # (Auto) Baso # (Auto) Abs Immat Gran (auto) Absolute Neuts (auto) Absolute Nucleated RBC Nucleated RBC % (auto) D-Dimer Sodium Potassium Chloride Carbon Dioxide Anion Gap BUN Creatinine Estim Creat Clear Calc Estimated GFR POC Glucose 138 H 169 H 146 H Random Glucose Estimat Average Glucose Hemoglobin A1c % Lactic Acid Calcium Magnesium Total Bilirubin Direct Bilirubin AST ALT Alkaline Phosphatase Ammonia Lactate Dehydrogenase Total Creatine Kinase C-Reactive Protein B-Natriuretic Peptide NT-Pro-B Natriuret Pep Total Protein Albumin Vitamin B12 Folate Procalcitonin Urine Color Urine Appearance Urine pH Ur Specific [place] Urine Protein Urine Glucose (UA) Urine Ketones Urine Blood Urine Nitrite Ur Leukocyte Esterase Urine RBC Urine WBC Ur Squamous Epith Cells Urine Bacteria Hyaline Casts Granular Casts Urine Mucus Ethyl Alcohol COVID-19 (JUDITH) COVID-19 Clin Com Hep Bs Antigen Hep Bs Antibody Hep B Core Total Ab Hepatitis C Ab (EIA) 03/10/21 03/10/21 03/10/21 11:37 12:34 16:34 WBC RBC Hgb Hct MCV MCH MCHC RDW Plt Count MPV Immature Gran % (Auto) Neut % (Auto) Lymph % (Auto) [place] % (Auto) Eos % (Auto) Baso % (Auto) Lymph # (Auto) [place] # (Auto) Eos # (Auto) Baso # (Auto) Abs Immat Gran (auto) Absolute Neuts (auto) Absolute Nucleated RBC Nucleated RBC % (auto) D-Dimer Sodium 144 Potassium 3.5 Chloride 109 H Carbon Dioxide 24 Anion Gap 15 BUN 22 H Creatinine 0.98 Estim Creat Clear Calc 103.0 Estimated GFR > 60 POC Glucose 184 H 157 H Random Glucose 215 H D Estimat Average Glucose Hemoglobin A1c % Lactic Acid Calcium 9.8 D Magnesium Total Bilirubin Direct Bilirubin AST ALT Alkaline Phosphatase Ammonia Lactate Dehydrogenase Total Creatine Kinase C-Reactive Protein B-Natriuretic Peptide NT-Pro-B Natriuret Pep Total Protein Albumin Vitamin B12 Folate Procalcitonin Urine Color Urine Appearance Urine pH Ur Specific [place] Urine Protein Urine Glucose (UA) Urine Ketones Urine Blood Urine Nitrite Ur Leukocyte Esterase Urine RBC Urine WBC Ur Squamous Epith Cells Urine Bacteria Hyaline Casts Granular Casts Urine Mucus Ethyl Alcohol COVID-19 (JUDITH) COVID-19 Clin Com Hep Bs Antigen Hep Bs Antibody Hep B Core Total Ab Hepatitis C Ab (EIA) 03/10/21 03/11/21 03/11/21 21:28 07:57 08:17 WBC RBC Hgb Hct MCV MCH MCHC RDW Plt Count MPV Immature Gran % (Auto) Neut % (Auto) Lymph % (Auto) [place] % (Auto) Eos % (Auto) Baso % (Auto) Lymph # (Auto) [place] # (Auto) Eos # (Auto) Baso # (Auto) Abs Immat Gran (auto) Absolute Neuts (auto) Absolute Nucleated RBC Nucleated RBC % (auto) D-Dimer Sodium 142 Potassium 3.1 L Chloride 106 Carbon Dioxide 27 Anion Gap 12 BUN 19 H Creatinine 0.85 Estim Creat Clear Calc 118.8 Estimated GFR > 60 POC Glucose 285 H 146 H Random Glucose 156 H Estimat Average Glucose Hemoglobin A1c % Lactic Acid Calcium 9.0 D Magnesium Total Bilirubin Direct Bilirubin AST ALT Alkaline Phosphatase Ammonia Lactate Dehydrogenase Total Creatine Kinase C-Reactive Protein B-Natriuretic Peptide NT-Pro-B Natriuret Pep Total Protein Albumin Vitamin B12 Folate Procalcitonin Urine Color Urine Appearance Urine pH Ur Specific [place] Urine Protein Urine Glucose (UA) Urine Ketones Urine Blood Urine Nitrite Ur Leukocyte Esterase Urine RBC Urine WBC Ur Squamous Epith Cells Urine Bacteria Hyaline Casts Granular Casts Urine Mucus Ethyl Alcohol COVID-19 (JUDITH) COVID-19 Clin Com Hep Bs Antigen Hep Bs Antibody Hep B Core Total Ab Hepatitis C Ab (EIA) 03/11/21 03/11/21 03/11/21 12:05 16:48 20:35 WBC RBC Hgb Hct MCV MCH MCHC RDW Plt Count MPV Immature Gran % (Auto) Neut % (Auto) Lymph % (Auto) [place] % (Auto) Eos % (Auto) Baso % (Auto) Lymph # (Auto) [place] # (Auto) Eos # (Auto) Baso # (Auto) Abs Immat Gran (auto) Absolute Neuts (auto) Absolute Nucleated RBC Nucleated RBC % (auto) D-Dimer Sodium Potassium Chloride Carbon Dioxide Anion Gap BUN Creatinine Estim Creat Clear Calc Estimated GFR POC Glucose 214 H 143 H 241 H Random Glucose Estimat Average Glucose Hemoglobin A1c % Lactic Acid Calcium Magnesium Total Bilirubin Direct Bilirubin AST ALT Alkaline Phosphatase Ammonia Lactate Dehydrogenase Total Creatine Kinase C-Reactive Protein B-Natriuretic Peptide NT-Pro-B Natriuret Pep Total Protein Albumin Vitamin B12 Folate Procalcitonin Urine Color Urine Appearance Urine pH Ur Specific [place] Urine Protein Urine Glucose (UA) Urine Ketones Urine Blood Urine Nitrite Ur Leukocyte Esterase Urine RBC Urine WBC Ur Squamous Epith Cells Urine Bacteria Hyaline Casts Granular Casts Urine Mucus Ethyl Alcohol COVID-19 (JUDITH) COVID-19 Clin Com Hep Bs Antigen Hep Bs Antibody Hep B Core Total Ab Hepatitis C Ab (EIA) 03/12/21 03/12/21 03/12/21 06:38 08:02 12:00 WBC RBC Hgb Hct MCV MCH MCHC RDW Plt Count MPV Immature Gran % (Auto) Neut % (Auto) Lymph % (Auto) [place] % (Auto) Eos % (Auto) Baso % (Auto) Lymph # (Auto) [place] # (Auto) Eos # (Auto) Baso # (Auto) Abs Immat Gran (auto) Absolute Neuts (auto) Absolute Nucleated RBC Nucleated RBC % (auto) D-Dimer Sodium 144 Potassium 3.4 Chloride 108 Carbon Dioxide 27 Anion Gap 12 BUN 16 Creatinine 0.86 Estim Creat Clear Calc 130.7 Estimated GFR > 60 POC Glucose 175 H 123 H Random Glucose 147 H Estimat Average Glucose Hemoglobin A1c % Lactic Acid Calcium 8.9 Magnesium Total Bilirubin 0.6 Direct Bilirubin AST 31 ALT 55 H Alkaline Phosphatase 84 Ammonia Lactate Dehydrogenase Total Creatine Kinase C-Reactive Protein B-Natriuretic Peptide NT-Pro-B Natriuret Pep Total Protein 5.6 L Albumin 3.8 Vitamin B12 Folate Procalcitonin Urine Color Urine Appearance Urine pH Ur Specific [place] Urine Protein Urine Glucose (UA) Urine Ketones Urine Blood Urine Nitrite Ur Leukocyte Esterase Urine RBC Urine WBC Ur Squamous Epith Cells Urine Bacteria Hyaline Casts Granular Casts Urine Mucus Ethyl Alcohol COVID-19 (JUDITH) COVID-19 Clin Com Hep Bs Antigen Hep Bs Antibody Hep B Core Total Ab Hepatitis C Ab (EIA) 03/12/21 03/12/21 03/13/21 17:25 19:57 09:17 WBC RBC Hgb Hct MCV MCH MCHC RDW Plt Count MPV Immature Gran % (Auto) Neut % (Auto) Lymph % (Auto) [place] % (Auto) Eos % (Auto) Baso % (Auto) Lymph # (Auto) [place] # (Auto) Eos # (Auto) Baso # (Auto) Abs Immat Gran (auto) Absolute Neuts (auto) Absolute Nucleated RBC Nucleated RBC % (auto) D-Dimer Sodium Potassium Chloride Carbon Dioxide Anion Gap BUN Creatinine Estim Creat Clear Calc Estimated GFR POC Glucose 181 H 191 H 130 H Random Glucose Estimat Average Glucose Hemoglobin A1c % Lactic Acid Calcium Magnesium Total Bilirubin Direct Bilirubin AST ALT Alkaline Phosphatase Ammonia Lactate Dehydrogenase Total Creatine Kinase C-Reactive Protein B-Natriuretic Peptide NT-Pro-B Natriuret Pep Total Protein Albumin Vitamin B12 Folate Procalcitonin Urine Color Urine Appearance Urine pH Ur Specific [place] Urine Protein Urine Glucose (UA) Urine Ketones Urine Blood Urine Nitrite Ur Leukocyte Esterase Urine RBC Urine WBC Ur Squamous Epith Cells Urine Bacteria Hyaline Casts Granular Casts Urine Mucus Ethyl Alcohol COVID-19 (JUDITH) COVID-19 Clin Com Hep Bs Antigen Hep Bs Antibody Hep B Core Total Ab Hepatitis C Ab (EIA) 03/13/21 03/13/21 03/13/21 12:29 16:31 21:12 WBC RBC Hgb Hct MCV MCH MCHC RDW Plt Count MPV Immature Gran % (Auto) Neut % (Auto) Lymph % (Auto) [place] % (Auto) Eos % (Auto) Baso % (Auto) Lymph # (Auto) [place] # (Auto) Eos # (Auto) Baso # (Auto) Abs Immat Gran (auto) Absolute Neuts (auto) Absolute Nucleated RBC Nucleated RBC % (auto) D-Dimer Sodium Potassium Chloride Carbon Dioxide Anion Gap BUN Creatinine Estim Creat Clear Calc Estimated GFR POC Glucose 277 H 265 H 130 H Random Glucose Estimat Average Glucose Hemoglobin A1c % Lactic Acid Calcium Magnesium Total Bilirubin Direct Bilirubin AST ALT Alkaline Phosphatase Ammonia Lactate Dehydrogenase Total Creatine Kinase C-Reactive Protein B-Natriuretic Peptide NT-Pro-B Natriuret Pep Total Protein Albumin Vitamin B12 Folate Procalcitonin Urine Color Urine Appearance Urine pH Ur Specific [place] Urine Protein Urine Glucose (UA) Urine Ketones Urine Blood Urine Nitrite Ur Leukocyte Esterase Urine RBC Urine WBC Ur Squamous Epith Cells Urine Bacteria Hyaline Casts Granular Casts Urine Mucus Ethyl Alcohol COVID-19 (JUDITH) COVID-19 Clin Com Hep Bs Antigen Hep Bs Antibody Hep B Core Total Ab Hepatitis C Ab (EIA) 03/14/21 03/14/21 03/15/21 08:52 21:35 08:33 WBC RBC Hgb Hct MCV MCH MCHC RDW Plt Count MPV Immature Gran % (Auto) Neut % (Auto) Lymph % (Auto) [place] % (Auto) Eos % (Auto) Baso % (Auto) Lymph # (Auto) [place] # (Auto) Eos # (Auto) Baso # (Auto) Abs Immat Gran (auto) Absolute Neuts (auto) Absolute Nucleated RBC Nucleated RBC % (auto) D-Dimer Sodium Potassium Chloride Carbon Dioxide Anion Gap BUN Creatinine Estim Creat Clear Calc Estimated GFR POC Glucose 163 H 140 H 170 H Random Glucose Estimat Average Glucose Hemoglobin A1c % Lactic Acid Calcium Magnesium Total Bilirubin Direct Bilirubin AST ALT Alkaline Phosphatase Ammonia Lactate Dehydrogenase Total Creatine Kinase C-Reactive Protein B-Natriuretic Peptide NT-Pro-B Natriuret Pep Total Protein Albumin Vitamin B12 Folate Procalcitonin Urine Color Urine Appearance Urine pH Ur Specific [place] Urine Protein Urine Glucose (UA) Urine Ketones Urine Blood Urine Nitrite Ur Leukocyte Esterase Urine RBC Urine WBC Ur Squamous Epith Cells Urine Bacteria Hyaline Casts Granular Casts Urine Mucus Ethyl Alcohol COVID-19 (JUDITH) COVID-19 Clin Com Hep Bs Antigen Hep Bs Antibody Hep B Core Total Ab Hepatitis C Ab (EIA) 03/15/21 03/15/21 03/16/21 17:26 20:20 07:07 WBC RBC Hgb Hct MCV MCH MCHC RDW Plt Count MPV Immature Gran % (Auto) Neut % (Auto) Lymph % (Auto) [place] % (Auto) Eos % (Auto) Baso % (Auto) Lymph # (Auto) [place] # (Auto) Eos # (Auto) Baso # (Auto) Abs Immat Gran (auto) Absolute Neuts (auto) Absolute Nucleated RBC Nucleated RBC % (auto) D-Dimer Sodium Potassium Chloride Carbon Dioxide Anion Gap BUN Creatinine Estim Creat Clear Calc Estimated GFR POC Glucose 130 H 227 H 162 H Random Glucose Estimat Average Glucose Hemoglobin A1c % Lactic Acid Calcium Magnesium Total Bilirubin Direct Bilirubin AST ALT Alkaline Phosphatase Ammonia Lactate Dehydrogenase Total Creatine Kinase C-Reactive Protein B-Natriuretic Peptide NT-Pro-B Natriuret Pep Total Protein Albumin Vitamin B12 Folate Procalcitonin Urine Color Urine Appearance Urine pH Ur Specific [place] Urine Protein Urine Glucose (UA) Urine Ketones Urine Blood Urine Nitrite Ur Leukocyte Esterase Urine RBC Urine WBC Ur Squamous Epith Cells Urine Bacteria Hyaline Casts Granular Casts Urine Mucus Ethyl Alcohol COVID-19 (JUDITH) COVID-19 Clin Com Hep Bs Antigen Hep Bs Antibody Hep B Core Total Ab Hepatitis C Ab (EIA) 03/16/21 03/16/21 03/16/21 12:23 16:42 21:18 WBC RBC Hgb Hct MCV MCH MCHC RDW Plt Count MPV Immature Gran % (Auto) Neut % (Auto) Lymph % (Auto) [place] % (Auto) Eos % (Auto) Baso % (Auto) Lymph # (Auto) [place] # (Auto) Eos # (Auto) Baso # (Auto) Abs Immat Gran (auto) Absolute Neuts (auto) Absolute Nucleated RBC Nucleated RBC % (auto) D-Dimer Sodium Potassium Chloride Carbon Dioxide Anion Gap BUN Creatinine Estim Creat Clear Calc Estimated GFR POC Glucose 145 H 171 H 179 H Random Glucose Estimat Average Glucose Hemoglobin A1c % Lactic Acid Calcium Magnesium Total Bilirubin Direct Bilirubin AST ALT Alkaline Phosphatase Ammonia Lactate Dehydrogenase Total Creatine Kinase C-Reactive Protein B-Natriuretic Peptide NT-Pro-B Natriuret Pep Total Protein Albumin Vitamin B12 Folate Procalcitonin Urine Color Urine Appearance Urine pH Ur Specific [place] Urine Protein Urine Glucose (UA) Urine Ketones Urine Blood Urine Nitrite Ur Leukocyte Esterase Urine RBC Urine WBC Ur Squamous Epith Cells Urine Bacteria Hyaline Casts Granular Casts Urine Mucus Ethyl Alcohol COVID-19 (JUDITH) COVID-19 Clin Com Hep Bs Antigen Hep Bs Antibody Hep B Core Total Ab Hepatitis C Ab (EIA) 03/17/21 03/17/21 03/17/21 05:57 12:32 16:39 WBC RBC Hgb Hct MCV MCH MCHC RDW Plt Count MPV Immature Gran % (Auto) Neut % (Auto) Lymph % (Auto) [place] % (Auto) Eos % (Auto) Baso % (Auto) Lymph # (Auto) [place] # (Auto) Eos # (Auto) Baso # (Auto) Abs Immat Gran (auto) Absolute Neuts (auto) Absolute Nucleated RBC Nucleated RBC % (auto) D-Dimer Sodium Potassium Chloride Carbon Dioxide Anion Gap BUN Creatinine Estim Creat Clear Calc Estimated GFR POC Glucose 138 H 175 H 164 H Random Glucose Estimat Average Glucose Hemoglobin A1c % Lactic Acid Calcium Magnesium Total Bilirubin Direct Bilirubin AST ALT Alkaline Phosphatase Ammonia Lactate Dehydrogenase Total Creatine Kinase C-Reactive Protein B-Natriuretic Peptide NT-Pro-B Natriuret Pep Total Protein Albumin Vitamin B12 Folate Procalcitonin Urine Color Urine Appearance Urine pH Ur Specific [place] Urine Protein Urine Glucose (UA) Urine Ketones Urine Blood Urine Nitrite Ur Leukocyte Esterase Urine RBC Urine WBC Ur Squamous Epith Cells Urine Bacteria Hyaline Casts Granular Casts Urine Mucus Ethyl Alcohol COVID-19 (JUDITH) COVID-19 Clin Com Hep Bs Antigen Hep Bs Antibody Hep B Core Total Ab Hepatitis C Ab (EIA) 03/17/21 03/18/21 03/18/21 20:43 06:07 16:26 WBC RBC Hgb Hct MCV MCH MCHC RDW Plt Count MPV Immature Gran % (Auto) Neut % (Auto) Lymph % (Auto) [place] % (Auto) Eos % (Auto) Baso % (Auto) Lymph # (Auto) [place] # (Auto) Eos # (Auto) Baso # (Auto) Abs Immat Gran (auto) Absolute Neuts (auto) Absolute Nucleated RBC Nucleated RBC % (auto) D-Dimer Sodium Potassium Chloride Carbon Dioxide Anion Gap BUN Creatinine Estim Creat Clear Calc Estimated GFR POC Glucose 183 H 165 H 177 H Random Glucose Estimat Average Glucose Hemoglobin A1c % Lactic Acid Calcium Magnesium Total Bilirubin Direct Bilirubin AST ALT Alkaline Phosphatase Ammonia Lactate Dehydrogenase Total Creatine Kinase C-Reactive Protein B-Natriuretic Peptide NT-Pro-B Natriuret Pep Total Protein Albumin Vitamin B12 Folate Procalcitonin Urine Color Urine Appearance Urine pH Ur Specific [place] Urine Protein Urine Glucose (UA) Urine Ketones Urine Blood Urine Nitrite Ur Leukocyte Esterase Urine RBC Urine WBC Ur Squamous Epith Cells Urine Bacteria Hyaline Casts Granular Casts Urine Mucus Ethyl Alcohol COVID-19 (JUDITH) COVID-19 Clin Com Hep Bs Antigen Hep Bs Antibody Hep B Core Total Ab Hepatitis C Ab (EIA) 03/18/21 03/19/21 03/19/21 20:03 05:56 11:43 WBC RBC Hgb Hct MCV MCH MCHC RDW Plt Count MPV Immature Gran % (Auto) Neut % (Auto) Lymph % (Auto) [place] % (Auto) Eos % (Auto) Baso % (Auto) Lymph # (Auto) [place] # (Auto) Eos # (Auto) Baso # (Auto) Abs Immat Gran (auto) Absolute Neuts (auto) Absolute Nucleated RBC Nucleated RBC % (auto) D-Dimer Sodium Potassium Chloride Carbon Dioxide Anion Gap BUN Creatinine Estim Creat Clear Calc Estimated GFR POC Glucose 229 H 171 H 170 H Random Glucose Estimat Average Glucose Hemoglobin A1c % Lactic Acid Calcium Magnesium Total Bilirubin Direct Bilirubin AST ALT Alkaline Phosphatase Ammonia Lactate Dehydrogenase Total Creatine Kinase C-Reactive Protein B-Natriuretic Peptide NT-Pro-B Natriuret Pep Total Protein Albumin Vitamin B12 Folate Procalcitonin Urine Color Urine Appearance Urine pH Ur Specific [place] Urine Protein Urine Glucose (UA) Urine Ketones Urine Blood Urine Nitrite Ur Leukocyte Esterase Urine RBC Urine WBC Ur Squamous Epith Cells Urine Bacteria Hyaline Casts Granular Casts Urine Mucus Ethyl Alcohol COVID-19 (JUDITH) COVID-19 Clin Com Hep Bs Antigen Hep Bs Antibody Hep B Core Total Ab Hepatitis C Ab (EIA) 03/19/21 03/19/21 03/20/21 16:33 20:49 06:28 WBC RBC Hgb Hct MCV MCH MCHC RDW Plt Count MPV Immature Gran % (Auto) Neut % (Auto) Lymph % (Auto) [place] % (Auto) Eos % (Auto) Baso % (Auto) Lymph # (Auto) [place] # (Auto) Eos # (Auto) Baso # (Auto) Abs Immat Gran (auto) Absolute Neuts (auto) Absolute Nucleated RBC Nucleated RBC % (auto) D-Dimer Sodium Potassium Chloride Carbon Dioxide Anion Gap BUN Creatinine Estim Creat Clear Calc Estimated GFR POC Glucose 230 H 203 H 179 H Random Glucose Estimat Average Glucose Hemoglobin A1c % Lactic Acid Calcium Magnesium Total Bilirubin Direct Bilirubin AST ALT Alkaline Phosphatase Ammonia Lactate Dehydrogenase Total Creatine Kinase C-Reactive Protein B-Natriuretic Peptide NT-Pro-B Natriuret Pep Total Protein Albumin Vitamin B12 Folate Procalcitonin Urine Color Urine Appearance Urine pH Ur Specific [place] Urine Protein Urine Glucose (UA) Urine Ketones Urine Blood Urine Nitrite Ur Leukocyte Esterase Urine RBC Urine WBC Ur Squamous Epith Cells Urine Bacteria Hyaline Casts Granular Casts Urine Mucus Ethyl Alcohol COVID-19 (JUDITH) COVID-19 Clin Com Hep Bs Antigen Hep Bs Antibody Hep B Core Total Ab Hepatitis C Ab (EIA) 03/20/21 03/20/21 03/20/21 08:02 11:24 16:35 WBC RBC Hgb Hct MCV MCH MCHC RDW Plt Count MPV Immature Gran % (Auto) Neut % (Auto) Lymph % (Auto) [place] % (Auto) Eos % (Auto) Baso % (Auto) Lymph # (Auto) [place] # (Auto) Eos # (Auto) Baso # (Auto) Abs Immat Gran (auto) Absolute Neuts (auto) Absolute Nucleated RBC Nucleated RBC % (auto) D-Dimer Sodium Potassium Chloride Carbon Dioxide Anion Gap BUN Creatinine Estim Creat Clear Calc Estimated GFR POC Glucose 172 H 388 H* 135 H Random Glucose Estimat Average Glucose Hemoglobin A1c % Lactic Acid Calcium Magnesium Total Bilirubin Direct Bilirubin AST ALT Alkaline Phosphatase Ammonia Lactate Dehydrogenase Total Creatine Kinase C-Reactive Protein B-Natriuretic Peptide NT-Pro-B Natriuret Pep Total Protein Albumin Vitamin B12 Folate Procalcitonin Urine Color Urine Appearance Urine pH Ur Specific [place] Urine Protein Urine Glucose (UA) Urine Ketones Urine Blood Urine Nitrite Ur Leukocyte Esterase Urine RBC Urine WBC Ur Squamous Epith Cells Urine Bacteria Hyaline Casts Granular Casts Urine Mucus Ethyl Alcohol COVID-19 (JUDITH) COVID-19 Clin Com Hep Bs Antigen Hep Bs Antibody Hep B Core Total Ab Hepatitis C Ab (EIA) 03/20/21 03/21/21 03/21/21 20:23 06:49 12:18 WBC RBC Hgb Hct MCV MCH MCHC RDW Plt Count MPV Immature Gran % (Auto) Neut % (Auto) Lymph % (Auto) [place] % (Auto) Eos % (Auto) Baso % (Auto) Lymph # (Auto) [place] # (Auto) Eos # (Auto) Baso # (Auto) Abs Immat Gran (auto) Absolute Neuts (auto) Absolute Nucleated RBC Nucleated RBC % (auto) D-Dimer Sodium Potassium Chloride Carbon Dioxide Anion Gap BUN Creatinine Estim Creat Clear Calc Estimated GFR POC Glucose 161 H 174 H 238 H Random Glucose Estimat Average Glucose Hemoglobin A1c % Lactic Acid Calcium Magnesium Total Bilirubin Direct Bilirubin AST ALT Alkaline Phosphatase Ammonia Lactate Dehydrogenase Total Creatine Kinase C-Reactive Protein B-Natriuretic Peptide NT-Pro-B Natriuret Pep Total Protein Albumin Vitamin B12 Folate Procalcitonin Urine Color Urine Appearance Urine pH Ur Specific [place] Urine Protein Urine Glucose (UA) Urine Ketones Urine Blood Urine Nitrite Ur Leukocyte Esterase Urine RBC Urine WBC Ur Squamous Epith Cells Urine Bacteria Hyaline Casts Granular Casts Urine Mucus Ethyl Alcohol COVID-19 (JUDITH) COVID-19 Clin Com Hep Bs Antigen Hep Bs Antibody Hep B Core Total Ab Hepatitis C Ab (EIA) 03/21/21 03/21/21 03/22/21 16:57 20:25 06:18 WBC RBC Hgb Hct MCV MCH MCHC RDW Plt Count MPV Immature Gran % (Auto) Neut % (Auto) Lymph % (Auto) [place] % (Auto) Eos % (Auto) Baso % (Auto) Lymph # (Auto) [place] # (Auto) Eos # (Auto) Baso # (Auto) Abs Immat Gran (auto) Absolute Neuts (auto) Absolute Nucleated RBC Nucleated RBC % (auto) D-Dimer Sodium Potassium Chloride Carbon Dioxide Anion Gap BUN Creatinine Estim Creat Clear Calc Estimated GFR POC Glucose 178 H 157 H 195 H Random Glucose Estimat Average Glucose Hemoglobin A1c % Lactic Acid Calcium Magnesium Total Bilirubin Direct Bilirubin AST ALT Alkaline Phosphatase Ammonia Lactate Dehydrogenase Total Creatine Kinase C-Reactive Protein B-Natriuretic Peptide NT-Pro-B Natriuret Pep Total Protein Albumin Vitamin B12 Folate Procalcitonin Urine Color Urine Appearance Urine pH Ur Specific [place] Urine Protein Urine Glucose (UA) Urine Ketones Urine Blood Urine Nitrite Ur Leukocyte Esterase Urine RBC Urine WBC Ur Squamous Epith Cells Urine Bacteria Hyaline Casts Granular Casts Urine Mucus Ethyl Alcohol COVID-19 (JUDITH) COVID-19 Clin Com Hep Bs Antigen Hep Bs Antibody Hep B Core Total Ab Hepatitis C Ab (EIA) 03/22/21 03/22/21 03/22/21 12:00 16:28 20:15 WBC RBC Hgb Hct MCV MCH MCHC RDW Plt Count MPV Immature Gran % (Auto) Neut % (Auto) Lymph % (Auto) [place] % (Auto) Eos % (Auto) Baso % (Auto) Lymph # (Auto) [place] # (Auto) Eos # (Auto) Baso # (Auto) Abs Immat Gran (auto) Absolute Neuts (auto) Absolute Nucleated RBC Nucleated RBC % (auto) D-Dimer Sodium Potassium Chloride Carbon Dioxide Anion Gap BUN Creatinine Estim Creat Clear Calc Estimated GFR POC Glucose 208 H 144 H 254 H Random Glucose Estimat Average Glucose Hemoglobin A1c % Lactic Acid Calcium Magnesium Total Bilirubin Direct Bilirubin AST ALT Alkaline Phosphatase Ammonia Lactate Dehydrogenase Total Creatine Kinase C-Reactive Protein B-Natriuretic Peptide NT-Pro-B Natriuret Pep Total Protein Albumin Vitamin B12 Folate Procalcitonin Urine Color Urine Appearance Urine pH Ur Specific [place] Urine Protein Urine Glucose (UA) Urine Ketones Urine Blood Urine Nitrite Ur Leukocyte Esterase Urine RBC Urine WBC Ur Squamous Epith Cells Urine Bacteria Hyaline Casts Granular Casts Urine Mucus Ethyl Alcohol COVID-19 (JUDITH) COVID-19 Clin Com Hep Bs Antigen Hep Bs Antibody Hep B Core Total Ab Hepatitis C Ab (EIA) 03/23/21 03/23/21 03/23/21 06:13 11:41 16:55 WBC RBC Hgb Hct MCV MCH MCHC RDW Plt Count MPV Immature Gran % (Auto) Neut % (Auto) Lymph % (Auto) Winkler % (Auto) Eos % (Auto) Baso % (Auto) Lymph # (Auto) Winkler # (Auto) Eos # (Auto) Baso # (Auto) Abs Immat Gran (auto) Absolute Neuts (auto) Absolute Nucleated RBC Nucleated RBC % (auto) D-Dimer Sodium Potassium Chloride Carbon Dioxide Anion Gap BUN Creatinine Estim Creat Clear Calc Estimated GFR POC Glucose 248 H 176 H 180 H Random Glucose Estimat Average Glucose Hemoglobin A1c % Lactic Acid Calcium Magnesium Total Bilirubin Direct Bilirubin AST ALT Alkaline Phosphatase Ammonia Lactate Dehydrogenase Total Creatine Kinase C-Reactive Protein B-Natriuretic Peptide NT-Pro-B Natriuret Pep Total Protein Albumin Vitamin B12 Folate Procalcitonin Urine Color Urine Appearance Urine pH Ur Specific [place] Urine Protein Urine Glucose (UA) Urine Ketones Urine Blood Urine Nitrite Ur Leukocyte Esterase Urine RBC Urine WBC Ur Squamous Epith Cells Urine Bacteria Hyaline Casts Granular Casts Urine Mucus Ethyl Alcohol COVID-19 (JUDITH) COVID-19 Clin Com Hep Bs Antigen Hep Bs Antibody Hep B Core Total Ab Hepatitis C Ab (EIA) 03/23/21 03/24/21 21:56 05:48 WBC RBC Hgb Hct MCV MCH MCHC RDW Plt Count MPV Immature Gran % (Auto) Neut % (Auto) Lymph % (Auto) Winkler % (Auto) Eos % (Auto) Baso % (Auto) Lymph # (Auto) Winkler # (Auto) Eos # (Auto) Baso # (Auto) Abs Immat Gran (auto) Absolute Neuts (auto) Absolute Nucleated RBC Nucleated RBC % (auto) D-Dimer Sodium Potassium Chloride Carbon Dioxide Anion Gap BUN Creatinine Estim Creat Clear Calc Estimated GFR POC Glucose 148 H 179 H Random Glucose Estimat Average Glucose Hemoglobin A1c % Lactic Acid Calcium Magnesium Total Bilirubin Direct Bilirubin AST ALT Alkaline Phosphatase Ammonia Lactate Dehydrogenase Total Creatine Kinase C-Reactive Protein B-Natriuretic Peptide NT-Pro-B Natriuret Pep Total Protein Albumin Vitamin B12 Folate Procalcitonin Urine Color Urine Appearance Urine pH Ur Specific [place] Urine Protein Urine Glucose (UA) Urine Ketones Urine Blood Urine Nitrite Ur Leukocyte Esterase Urine RBC Urine WBC Ur Squamous Epith Cells Urine Bacteria Hyaline Casts Granular Casts Urine Mucus Ethyl Alcohol COVID-19 (JUDITH) COVID-19 Clin Com Hep Bs Antigen Hep Bs Antibody Hep B Core Total Ab Hepatitis C Ab (EIA) Assessment and Plan Final Anesthetic Review Family History of Problems with Anesthesia: No History of Problems with Anesthesia: No NPO: Yes ASA Class: III Final Preanesthetic Review: No Changes in Pt Med Stat, Meds/Allgs Chart Reviewed and Consent Obtained/Reviewed Patient Risk: Intermediate Procedure Risk: Intermediate Anesthetic Plan Anesthetic Plan: GA Disposition: Standard PACU
--- NOTE | 2021-03-24 07:56 | HO.ECTPROC ---
ECT Procedure Note Diagnosis/Treatment Date of Service: 03/24/21 Diagnosis: Bipolar disorder Previous ECT Date: 03/22/21 Current Treatment Number: 5 Treatment: Series Interval Clinical Notes: The patient is now werbal, he can't remember details of previous ECT. No side effects. ECT Settings Device: THYMATRON DGx Electrode Placement: Bitemporal Program/Pulse Width: 0.50 Energy Percent: 100 Seizure Duration By EEG (in seconds): 54 (not detected by the EEG computer but paroxystal activity until 54) By Motor Observation (in seconds): 24 Medications Administration General Anesthetic: Etomidate (16) Muscle Relaxant: Succinylcholine (100) Ancillary Medications Analgesics: Torodol - Pre ECT Anti-emetics: Zofran - Pre ECT Miscillaneous Medications: Propofol (40) Airway Management Airway Management: Bag Mask Ventilation Treatment Recommendations No Changes Recommended: No change Pt Tolerated Procedure w/o Issue: Yes
[2021-03-24 09:53] LABS: Glucose, Whole Blood 163 mg/dL (60-115)
[2021-03-24] MEDS: Insulin Lispro 100 UNIT/ML 3 ML VIAL SUBCUT ×4 (10:17→21:59)
[2021-03-24] MEDS: Acetaminophen 325 MG TABLET 650 MG PO (10:19)
[2021-03-24] MEDS: metFORMIN HCl 1,000 MG TABLET 1000 MG PO ×2 (10:20→17:38)
[2021-03-24] MEDS: Multivitamin TABLET 1 TAB PO (10:20)
[2021-03-24] MEDS: OLANZapine 2.5 MG TABLET PO (10:21)
[2021-03-24] MEDS: LORazepam 1 MG TABLET 2 MG PO ×2 (10:21→21:59)
[2021-03-24 12:00] LABS: Glucose, Whole Blood 208 mg/dL (60-115)
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
[2021-03-24 17:26] LABS: Glucose, Whole Blood 168 mg/dL (60-115)
[2021-03-24] MEDS: OLANZapine 7.5 MG TABLET PO (21:59)
[2021-03-24] MEDS: Atorvastatin Calcium 20 MG TABLET PO (21:59)
[2021-03-24 22:00] LABS: Glucose, Whole Blood 157 mg/dL (60-115)
[2021-03-25 06:00] VITALS: BP 117/68; PULSE 89; RESP 16; TEMP 36.4; O2SAT 95
[2021-03-25 06:42] LABS: Glucose, Whole Blood 191 mg/dL (60-115)
[2021-03-25 07:00] VITALS: BMI 28.4
[2021-03-25 08:27] LABS: Estimated Glomerular Filt Rate > 60
[2021-03-25 08:30] LABS: Glucose, Whole Blood 172 mg/dL (60-115)
[2021-03-25] MEDS: Insulin Lispro 100 UNIT/ML 3 ML VIAL SUBCUT ×3 (09:31→22:10)
[2021-03-25] MEDS: LORazepam 1 MG TABLET 2 MG PO ×2 (09:32→22:09)
[2021-03-25] MEDS: metFORMIN HCl 1,000 MG TABLET 1000 MG PO ×2 (09:32→17:30)
[2021-03-25] MEDS: OLANZapine 2.5 MG TABLET PO (09:32)
[2021-03-25] MEDS: Multivitamin TABLET 1 TAB PO (09:32)
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
[2021-03-25] MEDS: Milk of Magnesia 30 ML ORAL.SUSP PO (11:02)
[2021-03-25 11:52] LABS: Glucose, Whole Blood 267 mg/dL (60-115)
[2021-03-25 17:12] LABS: Glucose, Whole Blood 116 mg/dL (60-115)
[2021-03-25] MEDS: OLANZapine 10 MG TABLET PO (22:09)
[2021-03-25] MEDS: Atorvastatin Calcium 20 MG TABLET PO (22:12)
[2021-03-25 22:49] LABS: Glucose, Whole Blood 162 mg/dL (60-115)
[2021-03-26] VITALS (10 sets, daily range): BP systolic 113–149; BP diastolic 65–97; PULSE 87–106; RESP 16–20; TEMP 36.2–36.7; O2SAT 92–99
[2021-03-26 06:17] LABS: Glucose, Whole Blood 193 mg/dL (60-115)
--- NOTE | 2021-03-26 07:05 | MHC.SHP ---
Pre-Procedural Eval Section A Date of Service: 03/26/21 Changes since office visit: Yes Patient answered all questions; No Cold of Flu in the past 2 weeks, No New Medical Problems and No Changes in Medication The History & Physical has been completed within 30 days and I have reviewed it.: Yes Section B Chief Complaint: acute psychosis, pre ECT assessment Allergies: Allergies Allergy/AdvReac Type Severity Reaction Status Date / Time No Known Allergies Allergy Unverified 03/05/20 17:38 [No Known Allergies*] Plan I have reviewed the history and physical and performed a pertinent physical examination on my patient. No changes have occurred unless specified.
--- NOTE | 2021-03-26 07:24 | HO.ECTPROC ---
ECT Procedure Note Diagnosis/Treatment Date of Service: 03/26/21 Diagnosis: Catatonia Previous ECT Date: 03/24/21 Current Treatment Number: 6 Treatment: Series Interval Clinical Notes: pt with taylor affect more logical ECT Settings Device: THYMATRON DGx Electrode Placement: Bitemporal Program/Pulse Width: 0.50 Energy Percent: 100 Seizure Duration By EEG (in seconds): 51 Medications Administration General Anesthetic: Etomidate (16) Muscle Relaxant: Succinylcholine (100) Ancillary Medications Analgesics: Torodol - Pre ECT Anti-emetics: Zofran - Pre ECT Miscillaneous Medications: Propofol (40) and Flumazenil Airway Management Airway Management: Bag Mask Ventilation Treatment Recommendations No Changes Recommended: No change Pt Tolerated Procedure w/o Issue: Yes
[2021-03-26] MEDS: Insulin Lispro 100 UNIT/ML 3 ML VIAL SUBCUT ×3 (08:31→21:17)
[2021-03-26] MEDS: Multivitamin TABLET 1 TAB PO (08:32)
[2021-03-26] MEDS: OLANZapine 5 MG TABLET PO (08:32)
[2021-03-26] MEDS: metFORMIN HCl 1,000 MG TABLET 1000 MG PO ×2 (08:32→16:46)
[2021-03-26] MEDS: LORazepam 1 MG TABLET 2 MG PO ×2 (08:32→21:15)
[2021-03-26 12:04] LABS: Glucose, Whole Blood 119 mg/dL (60-115)
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
[2021-03-26] MEDS: Throat Lozenge, Medicated LOZENGE 1 LOZENGE MUCOUS MEM (16:46)
[2021-03-26 17:03] LABS: Glucose, Whole Blood 188 mg/dL (60-115)
[2021-03-26 21:12] LABS: Glucose, Whole Blood 190 mg/dL (60-115)
[2021-03-26] MEDS: OLANZapine 10 MG TABLET PO (21:16)
[2021-03-26] MEDS: Atorvastatin Calcium 20 MG TABLET PO (21:17)
[2021-03-27 06:11] VITALS: BP 106/60; PULSE 100; RESP 18; TEMP 36.3; O2SAT 95
[2021-03-27 06:31] LABS: Glucose, Whole Blood 192 mg/dL (60-115)
[2021-03-27] MEDS: Insulin Lispro 100 UNIT/ML 3 ML VIAL SUBCUT ×3 (08:24→19:21)
[2021-03-27] MEDS: LORazepam 1 MG TABLET 2 MG PO (08:25)
[2021-03-27] MEDS: metFORMIN HCl 1,000 MG TABLET 1000 MG PO ×2 (08:25→19:21)
[2021-03-27] MEDS: Multivitamin TABLET 1 TAB PO (08:25)
[2021-03-27] MEDS: OLANZapine 5 MG TABLET PO (08:25)
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
[2021-03-27 12:08] LABS: Glucose, Whole Blood 222 mg/dL (60-115)
[2021-03-27 17:38] LABS: Glucose, Whole Blood 209 mg/dL (60-115)
[2021-03-27] MEDS: Atorvastatin Calcium 20 MG TABLET PO (21:29)
[2021-03-27] MEDS: OLANZapine 10 MG TABLET PO (21:29)
[2021-03-27 21:41] LABS: Glucose, Whole Blood 161 mg/dL (60-115)
[2021-03-28 06:00] VITALS: BP 122/73; PULSE 68; RESP 18; TEMP 36.3; O2SAT 99
[2021-03-28 06:28] LABS: Glucose, Whole Blood 182 mg/dL (60-115)
[2021-03-28] MEDS: metFORMIN HCl 1,000 MG TABLET 1000 MG PO ×2 (09:38→18:58)
[2021-03-28] MEDS: Multivitamin TABLET 1 TAB PO (09:38)
[2021-03-28] MEDS: Insulin Lispro 100 UNIT/ML 3 ML VIAL SUBCUT ×3 (09:38→21:02)
[2021-03-28] MEDS: OLANZapine 5 MG TABLET PO (09:38)
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
[2021-03-28 16:41] LABS: Glucose, Whole Blood 240 mg/dL (60-115)
[2021-03-28] MEDS: LORazepam 1 MG TABLET 2 MG PO (20:51)
[2021-03-28] MEDS: Throat Lozenge, Medicated LOZENGE 1 LOZENGE MUCOUS MEM (20:52)
[2021-03-28] MEDS: Atorvastatin Calcium 20 MG TABLET PO (20:53)
[2021-03-28] MEDS: OLANZapine 10 MG TABLET PO (20:53)
[2021-03-28 21:09] LABS: Glucose, Whole Blood 199 mg/dL (60-115)
[2021-03-28] MEDS: guaiFENesin 100 MG/5 ML LIQUID PO (21:40)
[2021-03-29 06:00] VITALS: BP 129/80; PULSE 96; RESP 18; TEMP 36.9; O2SAT 96
[2021-03-29 06:49] LABS: Glucose, Whole Blood 185 mg/dL (60-115)
[2021-03-29] MEDS: OLANZapine 5 MG TABLET PO (08:30)
[2021-03-29] MEDS: metFORMIN HCl 1,000 MG TABLET 1000 MG PO ×2 (08:30→17:21)
[2021-03-29] MEDS: LORazepam 1 MG TABLET 2 MG PO ×2 (08:30→21:12)
[2021-03-29] MEDS: Multivitamin TABLET 1 TAB PO (08:30)
[2021-03-29] MEDS: Insulin Lispro 100 UNIT/ML 3 ML VIAL SUBCUT ×4 (08:57→21:11)
[2021-03-29 11:17] LABS: Glucose, Whole Blood 259 mg/dL (60-115)
[2021-03-29 17:16] LABS: Glucose, Whole Blood 196 mg/dL (60-115)
[2021-03-29] MEDS: Acetaminophen 325 MG TABLET 650 MG PO (19:11)
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
[2021-03-29 21:05] VITALS: BP 156/92; PULSE 101; TEMP 36.3
[2021-03-29 21:09] LABS: Glucose, Whole Blood 186 mg/dL (60-115)
[2021-03-29] MEDS: OLANZapine 10 MG TABLET PO (21:12)
[2021-03-29] MEDS: Atorvastatin Calcium 20 MG TABLET PO (21:13)
[2021-03-30 06:00] VITALS: BP 124/73; PULSE 94; RESP 16; RESP 18; TEMP 35.9; O2SAT 96
[2021-03-30 06:32] LABS: Glucose, Whole Blood 225 mg/dL (60-115)
[2021-03-30 08:00] LABS: Glucose, Whole Blood 230 mg/dL (60-115)
[2021-03-30] MEDS: Insulin Lispro 100 UNIT/ML 3 ML VIAL SUBCUT ×4 (08:35→20:59)
[2021-03-30] MEDS: Multivitamin TABLET 1 TAB PO (08:36)
[2021-03-30] MEDS: LORazepam 1 MG TABLET 2 MG PO ×2 (08:36→20:09)
[2021-03-30] MEDS: OLANZapine 5 MG TABLET PO (08:36)
[2021-03-30] MEDS: glipiZIDE 10 MG TABLET PO (08:37)
[2021-03-30] MEDS: metFORMIN HCl 1,000 MG TABLET 1000 MG PO ×2 (08:37→17:04)
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
[2021-03-30 11:31] LABS: Glucose, Whole Blood 339 mg/dL (60-115)
[2021-03-30] MEDS: guaiFENesin 100 MG/5 ML LIQUID PO (13:54)
[2021-03-30 17:42] LABS: Glucose, Whole Blood 169 mg/dL (60-115)
[2021-03-30] MEDS: Atorvastatin Calcium 20 MG TABLET PO (20:09)
[2021-03-30] MEDS: OLANZapine 10 MG TABLET PO (20:10)
[2021-03-30 20:45] VITALS: BP 129/87; PULSE 85; TEMP 35.7; O2SAT 96
[2021-03-30 21:26] LABS: Glucose, Whole Blood 217 mg/dL (60-115)
[2021-03-31] VITALS (8 sets, daily range): BP systolic 121–154; BP diastolic 70–104; PULSE 93–111; RESP 16–23; TEMP 35.7–36.2; O2SAT 95–97; BMI 29.0
[2021-03-31 06:12] LABS: Glucose, Whole Blood 198 mg/dL (60-115)
--- NOTE | 2021-03-31 06:52 | P.CONAN_ITS ---
[facility] Active Problems Active Problems: All Active Problems (Updated 03/12/21 @ 15:56 by Chang Mason DO) Pre-op evaluation (Acute) Hypernatremia (Acute) Hypokalemia, inadequate intake (Acute) Preop cardiovascular exam (Acute) Rhabdomyolysis (Acute) Bipolar I disorder with catatonia (Acute) Catatonic excitement (Acute) Bipolar disorder (Acute) Type 2 diabetes mellitus (Chronic) Past Medical History Medical History Bipolar 1 disorder Depression Diabetes Family History Family history of problems with anesthesia: No Surgical History History of Problems with Anesthesia: No Social History Social History Household Members: Spouse Housing: Unknown / Unable to assess Do you presently have visiting nurse or other home services: No Unable to assess alcohol history related to: Unable to respond and Unknown Patient Tobacco Use Status: Tobacco use Unknown Smoked in Last 30 Days: No Use of substances other than those prescribed or required for medical reasons: Unable to respond Currently Displaying Signs/Symptoms of Drug Intoxication Withdrawal: No Are you DNR?: No Advance Directives: No Advance Directives Information Provided: No Advance Directives on File: No Do you have thoughts of harming others: None Do you have a plan to hurt others: No Plan Recently lost weight without trying: No Nutrition Risks: Difficulty chewing and Difficulty swallowing Poor oral hygiene: Yes service: No Sexual orientation: Straight/Heterosexual Meds Allergies Allergy/AdvReac Type Severity Reaction Status Date / Time No Known Allergies Allergy Unverified 03/05/20 17:38 [No Known Allergies*] Active Medications: Current Medications Acetaminophen (Acetaminophen 325 Mg Tablet) 650 mg PO Q6H PRN PRN Reason: Headache/Pain Mild Scale (1-3) Last Admin: 03/29/21 19:11 Dose: 650 mg Documented by: Al Hydroxide/Mg Hydroxide (Magnesium Hydrox/Alum Hydrox 30 Ml Oral.Susp) 30 ml PO Q6H PRN PRN Reason: Heartburn/Nausea Atorvastatin Calcium (Atorvastatin Calcium 20 Mg Tablet) 20 mg PO BEDTIME KATEY Last Admin: 03/30/21 20:09 Dose: 20 mg Documented by: Benzocaine (Throat Lozenge, Medicated Lozenge) 1 lozenge MUCOUS MEM Q2H PRN PRN Reason: Sore Throat Last Admin: 03/28/21 20:52 Dose: 1 lozenge Documented by: Glipizide (Glipizide 10 Mg Tablet) 10 mg PO DAILY [facility] Last Admin: 03/30/21 08:37 Dose: 10 mg Documented by: Glucose (Glucose Gel 15 Gm Gel..Gram.) 15 gm PO Q15M PRN; Protocol PRN Reason: per Hypoglycemia Standing Ord. Guaifenesin (Guaifenesin 100 Mg/5 Ml Liquid) 5 ml PO Q6H PRN PRN Reason: cough Last Admin: 03/30/21 13:54 Dose: 5 ml Documented by: Lactated Ringer's (Lr) 1,000 mls @ 50 mls/hr IVCONT .Q20H [facility] Insulin Human Lispro (Insulin Lispro 100 Unit/Ml 3 Ml Vial) 0 unit SUBCUT QIDACHS [facility]; Protocol Last Admin: 03/30/21 20:59 Dose: 4 unit Documented by: Lorazepam (Lorazepam 1 Mg Tablet) 2 mg PO BID [facility] Last Admin: 03/30/21 20:09 Dose: 2 mg Documented by: Magnesium Hydroxide (Milk Of Magnesia 30 Ml Oral.Susp) 30 ml PO DAILY PRN PRN Reason: Constipation Last Admin: 03/25/21 11:02 Dose: 30 ml Documented by: Metformin HCl (Metformin Hcl 1,000 Mg Tablet) 1,000 mg PO BIDWM [facility] Last Admin: 03/30/21 17:04 Dose: 1,000 mg Documented by: Multivitamins/Vitamin C (Multivitamin Tablet) 1 tab PO DAILY [facility] Last Admin: 03/30/21 08:36 Dose: 1 tab Documented by: Nicotine Polacrilex (Nicotine Polacrilex 2 Mg Gum) 4 mg BUCCAL Q2H PRN PRN Reason: Nicotine Cravings Last Admin: 03/09/21 09:46 Dose: 4 mg Documented by: Olanzapine (Olanzapine 10 Mg Tablet) 10 mg PO BEDTIME [facility] Last Admin: 03/30/21 20:10 Dose: 10 mg Documented by: Olanzapine (Olanzapine 5 Mg Tablet) 5 mg PO DAILY [facility] Last Admin: 03/30/21 08:36 Dose: 5 mg Documented by: Home Medications Medication Instructions Recorded Confirmed Last Taken Type atorvastatin 20 mg tablet 1 tab PO BEDTIME 03/01/21 03/01/21 02/28/21 History empagliflozin 10 mg tablet 1 tab PO QAM 03/01/21 03/01/21 02/28/21 History (Jardiance) glipizide 10 mg tablet, extended 1 tab PO DAILY 03/01/21 03/01/21 02/28/21 History release 24 hr lorazepam 1 mg tablet 1 mg PO TID 03/01/21 03/01/21 03/01/21 History metformin 1,000 mg tablet 1 tab PO BID 03/01/21 03/01/21 02/28/21 History multivitamin 1 tab PO DAILY 03/01/21 03/01/21 02/28/21 History olanzapine 10 mg tablet 10 mg PO BEDTIME 03/01/21 03/01/21 Unknown History sertraline 100 mg tablet 2 tab PO QAM 03/01/21 03/01/21 03/01/21 History Exam Exam Date and Time: March 31, 2021 0652 Height,Weight and Vital Signs: Height 6 ft 1 in Weight 97.7 kg Last Vital Signs Temp 96.3 F L 03/31/21 06:10 Pulse 97 03/31/21 06:10 Resp 18 03/31/21 06:10 BP 122/70 03/31/21 06:10 Pulse Ox 97 03/31/21 06:10 Pertinent Lab Results Pertinent Lab Results: Laboratory Tests 03/01/21 03/01/21 03/01/21 14:37 14:49 14:49 WBC 11.7 H RBC 5.27 Hgb 14.5 Hct 44.2 MCV 83.9 MCH 27.5 MCHC 32.8 RDW 13.9 Plt Count 277 MPV 11.0 Immature Gran % (Auto) 0.6 H Neut % (Auto) 78.6 H Lymph % (Auto) 13.9 L [place] % (Auto) 6.6 Eos % (Auto) 0.0 Baso % (Auto) 0.3 Lymph # (Auto) 1.6 [place] # (Auto) 0.8 Eos # (Auto) 0.0 Baso # (Auto) 0.0 Abs Immat Gran (auto) 0.07 H Absolute Neuts (auto) 9.2 H Absolute Nucleated RBC 0.000 Nucleated RBC % (auto) 0.0 D-Dimer Sodium 143 Potassium 4.0 Chloride 107 Carbon Dioxide 21 L Anion Gap 19 BUN 30 H Creatinine 1.16 Estim Creat Clear Calc 87.0 Estimated GFR > 60 POC Glucose Random Glucose 141 H Estimat Average Glucose Hemoglobin A1c % Lactic Acid Calcium 10.6 H Magnesium Total Bilirubin 0.5 Direct Bilirubin 0.2 AST 22 ALT 46 H Alkaline Phosphatase 105 Ammonia Lactate Dehydrogenase Total Creatine Kinase C-Reactive Protein B-Natriuretic Peptide NT-Pro-B Natriuret Pep Total Protein 8.2 H Albumin 5.5 H Vitamin B12 Folate Procalcitonin Urine Color Urine Appearance Urine pH Ur Specific [place] Urine Protein Urine Glucose (UA) Urine Ketones Urine Blood Urine Nitrite Ur Leukocyte Esterase Urine RBC Urine WBC Ur Squamous Epith Cells Urine Bacteria Hyaline Casts Granular Casts Urine Mucus Ethyl Alcohol COVID-19 (JUDITH) Negative COVID-19 Clin Com See Note Hep Bs Antigen Hep Bs Antibody Hep B Core Total Ab Hepatitis C Ab (EIA) 03/01/21 03/02/21 03/02/21 14:49 00:59 01:01 WBC RBC Hgb Hct MCV MCH MCHC RDW Plt Count MPV Immature Gran % (Auto) Neut % (Auto) Lymph % (Auto) [place] % (Auto) Eos % (Auto) Baso % (Auto) Lymph # (Auto) [place] # (Auto) Eos # (Auto) Baso # (Auto) Abs Immat Gran (auto) Absolute Neuts (auto) Absolute Nucleated RBC Nucleated RBC % (auto) D-Dimer Sodium Potassium Chloride Carbon Dioxide Anion Gap BUN Creatinine Estim Creat Clear Calc Estimated GFR POC Glucose 155 H 161 H Random Glucose Estimat Average Glucose Hemoglobin A1c % Lactic Acid Calcium Magnesium Total Bilirubin Direct Bilirubin AST ALT Alkaline Phosphatase Ammonia Lactate Dehydrogenase Total Creatine Kinase C-Reactive Protein B-Natriuretic Peptide NT-Pro-B Natriuret Pep Total Protein Albumin Vitamin B12 Folate Procalcitonin Urine Color Urine Appearance Urine pH Ur Specific [place] Urine Protein Urine Glucose (UA) Urine Ketones Urine Blood Urine Nitrite Ur Leukocyte Esterase Urine RBC Urine WBC Ur Squamous Epith Cells Urine Bacteria Hyaline Casts Granular Casts Urine Mucus Ethyl Alcohol < 10 COVID-19 (JUDITH) COVID-19 Clin Com Hep Bs Antigen Hep Bs Antibody Hep B Core Total Ab Hepatitis C Ab (EIA) 03/02/21 03/03/21 03/03/21 09:30 12:36 12:36 WBC 11.8 H RBC 4.76 Hgb 13.1 L Hct 40.5 L MCV 85.1 MCH 27.5 MCHC 32.3 RDW 14.0 Plt Count 265 MPV 10.6 Immature Gran % (Auto) 0.5 H Neut % (Auto) 74.8 H Lymph % (Auto) 16.6 L [place] % (Auto) 7.8 Eos % (Auto) 0.0 Baso % (Auto) 0.3 Lymph # (Auto) 2.0 [place] # (Auto) 0.9 Eos # (Auto) 0.0 Baso # (Auto) 0.0 Abs Immat Gran (auto) 0.06 H Absolute Neuts (auto) 8.8 H Absolute Nucleated RBC 0.000 Nucleated RBC % (auto) 0.0 D-Dimer Sodium 148 H Potassium 3.5 Chloride 114 H Carbon Dioxide 20 L Anion Gap 18 BUN 33 H Creatinine 1.07 Estim Creat Clear Calc 94.3 Estimated GFR > 60 POC Glucose 214 H Random Glucose Estimat Average Glucose Hemoglobin A1c % Lactic Acid Calcium Magnesium Total Bilirubin Direct Bilirubin AST ALT Alkaline Phosphatase Ammonia Lactate Dehydrogenase Total Creatine Kinase C-Reactive Protein B-Natriuretic Peptide NT-Pro-B Natriuret Pep Total Protein Albumin Vitamin B12 Folate Procalcitonin Urine Color Urine Appearance Urine pH Ur Specific [place] Urine Protein Urine Glucose (UA) Urine Ketones Urine Blood Urine Nitrite Ur Leukocyte Esterase Urine RBC Urine WBC Ur Squamous Epith Cells Urine Bacteria Hyaline Casts Granular Casts Urine Mucus Ethyl Alcohol COVID-19 (JUDITH) COVID-19 Clin Com Hep Bs Antigen Hep Bs Antibody Hep B Core Total Ab Hepatitis C Ab (EIA) 03/03/21 03/03/21 03/03/21 12:36 12:36 12:36 WBC RBC Hgb Hct MCV MCH MCHC RDW Plt Count MPV Immature Gran % (Auto) Neut % (Auto) Lymph % (Auto) [place] % (Auto) Eos % (Auto) Baso % (Auto) Lymph # (Auto) [place] # (Auto) Eos # (Auto) Baso # (Auto) Abs Immat Gran (auto) Absolute Neuts (auto) Absolute Nucleated RBC Nucleated RBC % (auto) D-Dimer Sodium Potassium Chloride Carbon Dioxide Anion Gap BUN Creatinine Estim Creat Clear Calc Estimated GFR POC Glucose Random Glucose Estimat Average Glucose Hemoglobin A1c % Lactic Acid Calcium 10.3 H Magnesium Total Bilirubin 0.8 Direct Bilirubin 0.3 AST 47 H D ALT 37 Alkaline Phosphatase 91 Ammonia 29 Lactate Dehydrogenase Total Creatine Kinase C-Reactive Protein B-Natriuretic Peptide NT-Pro-B Natriuret Pep Total Protein 7.1 Albumin 5.0 Vitamin B12 Folate Procalcitonin Urine Color Urine Appearance Urine pH Ur Specific [place] Urine Protein Urine Glucose (UA) Urine Ketones Urine Blood Urine Nitrite Ur Leukocyte Esterase Urine RBC Urine WBC Ur Squamous Epith Cells Urine Bacteria Hyaline Casts Granular Casts Urine Mucus Ethyl Alcohol COVID-19 (JUDITH) COVID-19 Clin Com Hep Bs Antigen Hep Bs Antibody Hep B Core Total Ab Hepatitis C Ab (EIA) 03/03/21 03/04/21 03/04/21 20:18 07:54 07:54 WBC RBC Hgb Hct MCV MCH MCHC RDW Plt Count MPV Immature Gran % (Auto) Neut % (Auto) Lymph % (Auto) [place] % (Auto) Eos % (Auto) Baso % (Auto) Lymph # (Auto) [place] # (Auto) Eos # (Auto) Baso # (Auto) Abs Immat Gran (auto) Absolute Neuts (auto) Absolute Nucleated RBC Nucleated RBC % (auto) D-Dimer Sodium 146 H Potassium 4.0 Chloride 111 H Carbon Dioxide 18 L Anion Gap 21 H BUN 41 H Creatinine 1.35 Estim Creat Clear Calc 74.8 Estimated GFR 56 POC Glucose 147 H Random Glucose 183 H Estimat Average Glucose 146 Hemoglobin A1c % 6.7 Lactic Acid Calcium 10.8 H Magnesium Total Bilirubin Direct Bilirubin AST ALT Alkaline Phosphatase Ammonia Lactate Dehydrogenase Total Creatine Kinase C-Reactive Protein B-Natriuretic Peptide NT-Pro-B Natriuret Pep Total Protein Albumin Vitamin B12 Folate Procalcitonin Urine Color Urine Appearance Urine pH Ur Specific [place] Urine Protein Urine Glucose (UA) Urine Ketones Urine Blood Urine Nitrite Ur Leukocyte Esterase Urine RBC Urine WBC Ur Squamous Epith Cells Urine Bacteria Hyaline Casts Granular Casts Urine Mucus Ethyl Alcohol COVID-19 (JUDITH) COVID-19 Clin Com Hep Bs Antigen Hep Bs Antibody Hep B Core Total Ab Hepatitis C Ab (EIA) 03/04/21 03/04/21 03/04/21 08:05 12:21 17:08 WBC RBC Hgb Hct MCV MCH MCHC RDW Plt Count MPV Immature Gran % (Auto) Neut % (Auto) Lymph % (Auto) [place] % (Auto) Eos % (Auto) Baso % (Auto) Lymph # (Auto) [place] # (Auto) Eos # (Auto) Baso # (Auto) Abs Immat Gran (auto) Absolute Neuts (auto) Absolute Nucleated RBC Nucleated RBC % (auto) D-Dimer Sodium Potassium Chloride Carbon Dioxide Anion Gap BUN Creatinine Estim Creat Clear Calc Estimated GFR POC Glucose 186 H 191 H 174 H Random Glucose Estimat Average Glucose Hemoglobin A1c % Lactic Acid Calcium Magnesium Total Bilirubin Direct Bilirubin AST ALT Alkaline Phosphatase Ammonia Lactate Dehydrogenase Total Creatine Kinase C-Reactive Protein B-Natriuretic Peptide NT-Pro-B Natriuret Pep Total Protein Albumin Vitamin B12 Folate Procalcitonin Urine Color Urine Appearance Urine pH Ur Specific [place] Urine Protein Urine Glucose (UA) Urine Ketones Urine Blood Urine Nitrite Ur Leukocyte Esterase Urine RBC Urine WBC Ur Squamous Epith Cells Urine Bacteria Hyaline Casts Granular Casts Urine Mucus Ethyl Alcohol COVID-19 (JUDITH) COVID-19 Clin Com Hep Bs Antigen Hep Bs Antibody Hep B Core Total Ab Hepatitis C Ab (EIA) 03/04/21 03/05/21 03/05/21 21:42 08:28 09:32 WBC 8.9 RBC 4.83 Hgb 13.2 L Hct 40.6 L MCV 84.1 MCH 27.3 MCHC 32.5 RDW 13.9 Plt Count 252 MPV 11.5 Immature Gran % (Auto) 0.9 H Neut % (Auto) 73.6 H Lymph % (Auto) 18.2 L [place] % (Auto) 7.1 Eos % (Auto) 0.0 Baso % (Auto) 0.2 Lymph # (Auto) 1.6 [place] # (Auto) 0.6 Eos # (Auto) 0.0 Baso # (Auto) 0.0 Abs Immat Gran (auto) 0.08 H Absolute Neuts (auto) 6.5 Absolute Nucleated RBC 0.000 Nucleated RBC % (auto) 0.0 D-Dimer Sodium Potassium Chloride Carbon Dioxide Anion Gap BUN Creatinine Estim Creat Clear Calc Estimated GFR POC Glucose 212 H 179 H Random Glucose Estimat Average Glucose Hemoglobin A1c % Lactic Acid Calcium Magnesium Total Bilirubin Direct Bilirubin AST ALT Alkaline Phosphatase Ammonia Lactate Dehydrogenase Total Creatine Kinase C-Reactive Protein B-Natriuretic Peptide NT-Pro-B Natriuret Pep Total Protein Albumin Vitamin B12 Folate Procalcitonin Urine Color Urine Appearance Urine pH Ur Specific [place] Urine Protein Urine Glucose (UA) Urine Ketones Urine Blood Urine Nitrite Ur Leukocyte Esterase Urine RBC Urine WBC Ur Squamous Epith Cells Urine Bacteria Hyaline Casts Granular Casts Urine Mucus Ethyl Alcohol COVID-19 (JUDITH) COVID-19 Clin Com Hep Bs Antigen Hep Bs Antibody Hep B Core Total Ab Hepatitis C Ab (EIA) 03/05/21 03/05/21 03/06/21 09:32 17:32 06:42 WBC RBC Hgb Hct MCV MCH MCHC RDW Plt Count MPV Immature Gran % (Auto) Neut % (Auto) Lymph % (Auto) [place] % (Auto) Eos % (Auto) Baso % (Auto) Lymph # (Auto) [place] # (Auto) Eos # (Auto) Baso # (Auto) Abs Immat Gran (auto) Absolute Neuts (auto) Absolute Nucleated RBC Nucleated RBC % (auto) D-Dimer Sodium 149 H Potassium 3.3 Chloride 116 H Carbon Dioxide 24 Anion Gap 12 BUN 36 H Creatinine 1.09 Estim Creat Clear Calc 92.6 Estimated GFR > 60 POC Glucose 241 H 172 H Random Glucose Estimat Average Glucose Hemoglobin A1c % Lactic Acid Calcium Magnesium Total Bilirubin 0.7 Direct Bilirubin 0.3 AST 72 H ALT 51 H Alkaline Phosphatase 88 Ammonia Lactate Dehydrogenase 235 Total Creatine Kinase 1870 H C-Reactive Protein B-Natriuretic Peptide NT-Pro-B Natriuret Pep Total Protein 6.6 Albumin 4.6 Vitamin B12 Folate Procalcitonin Urine Color Urine Appearance Urine pH Ur Specific [place] Urine Protein Urine Glucose (UA) Urine Ketones Urine Blood Urine Nitrite Ur Leukocyte Esterase Urine RBC Urine WBC Ur Squamous Epith Cells Urine Bacteria Hyaline Casts Granular Casts Urine Mucus Ethyl Alcohol COVID-19 (JUDITH) COVID-19 Clin Com Hep Bs Antigen Hep Bs Antibody Hep B Core Total Ab Hepatitis C Ab (EIA) 03/06/21 03/06/21 03/06/21 09:22 09:23 09:23 WBC RBC Hgb Hct MCV MCH MCHC RDW Plt Count MPV Immature Gran % (Auto) Neut % (Auto) Lymph % (Auto) [place] % (Auto) Eos % (Auto) Baso % (Auto) Lymph # (Auto) [place] # (Auto) Eos # (Auto) Baso # (Auto) Abs Immat Gran (auto) Absolute Neuts (auto) Absolute Nucleated RBC Nucleated RBC % (auto) D-Dimer Sodium 150 H Potassium 3.3 Chloride 117 H Carbon Dioxide 20 L Anion Gap 16 BUN 31 H Creatinine 1.22 Estim Creat Clear Calc 82.7 Estimated GFR > 60 POC Glucose Random Glucose 205 H Estimat Average Glucose Hemoglobin A1c % Lactic Acid Calcium 9.4 D Magnesium Total Bilirubin 1.0 Direct Bilirubin 0.4 AST 73 H ALT 65 H Alkaline Phosphatase 91 Ammonia Lactate Dehydrogenase Total Creatine Kinase 1633 H C-Reactive Protein B-Natriuretic Peptide NT-Pro-B Natriuret Pep Total Protein 6.8 Albumin 4.6 Vitamin B12 1285 H Folate 19.3 Procalcitonin Urine Color Urine Appearance Urine pH Ur Specific [place] Urine Protein Urine Glucose (UA) Urine Ketones Urine Blood Urine Nitrite Ur Leukocyte Esterase Urine RBC Urine WBC Ur Squamous Epith Cells Urine Bacteria Hyaline Casts Granular Casts Urine Mucus Ethyl Alcohol COVID-19 (JUDITH) COVID-19 Clin Com Hep Bs Antigen Negative Hep Bs Antibody REACTIVE Hep B Core Total Ab Nonreactive Hepatitis C Ab (EIA) Nonreactive 03/06/21 03/06/21 03/06/21 12:26 16:56 21:37 WBC RBC Hgb Hct MCV MCH MCHC RDW Plt Count MPV Immature Gran % (Auto) Neut % (Auto) Lymph % (Auto) [place] % (Auto) Eos % (Auto) Baso % (Auto) Lymph # (Auto) [place] # (Auto) Eos # (Auto) Baso # (Auto) Abs Immat Gran (auto) Absolute Neuts (auto) Absolute Nucleated RBC Nucleated RBC % (auto) D-Dimer Sodium Potassium Chloride Carbon Dioxide Anion Gap BUN Creatinine Estim Creat Clear Calc Estimated GFR POC Glucose 203 H 217 H 189 H Random Glucose Estimat Average Glucose Hemoglobin A1c % Lactic Acid Calcium Magnesium Total Bilirubin Direct Bilirubin AST ALT Alkaline Phosphatase Ammonia Lactate Dehydrogenase Total Creatine Kinase C-Reactive Protein B-Natriuretic Peptide NT-Pro-B Natriuret Pep Total Protein Albumin Vitamin B12 Folate Procalcitonin Urine Color Urine Appearance Urine pH Ur Specific [place] Urine Protein Urine Glucose (UA) Urine Ketones Urine Blood Urine Nitrite Ur Leukocyte Esterase Urine RBC Urine WBC Ur Squamous Epith Cells Urine Bacteria Hyaline Casts Granular Casts Urine Mucus Ethyl Alcohol COVID-19 (JUDITH) COVID-19 Clin Com Hep Bs Antigen Hep Bs Antibody Hep B Core Total Ab Hepatitis C Ab (EIA) 03/07/21 03/07/21 03/07/21 06:36 08:03 08:23 WBC RBC Hgb Hct MCV MCH MCHC RDW Plt Count MPV Immature Gran % (Auto) Neut % (Auto) Lymph % (Auto) [place] % (Auto) Eos % (Auto) Baso % (Auto) Lymph # (Auto) [place] # (Auto) Eos # (Auto) Baso # (Auto) Abs Immat Gran (auto) Absolute Neuts (auto) Absolute Nucleated RBC Nucleated RBC % (auto) D-Dimer Sodium 147 H Potassium 3.0 L Chloride 113 H Carbon Dioxide 25 Anion Gap 12 BUN 24 H Creatinine 0.86 Estim Creat Clear Calc 117.4 Estimated GFR > 60 POC Glucose 186 H 175 H Random Glucose 200 H Estimat Average Glucose Hemoglobin A1c % Lactic Acid Calcium 8.7 D Magnesium Total Bilirubin Direct Bilirubin AST ALT Alkaline Phosphatase Ammonia Lactate Dehydrogenase Total Creatine Kinase 972 H D C-Reactive Protein B-Natriuretic Peptide NT-Pro-B Natriuret Pep Total Protein Albumin Vitamin B12 Folate Procalcitonin Urine Color Urine Appearance Urine pH Ur Specific [place] Urine Protein Urine Glucose (UA) Urine Ketones Urine Blood Urine Nitrite Ur Leukocyte Esterase Urine RBC Urine WBC Ur Squamous Epith Cells Urine Bacteria Hyaline Casts Granular Casts Urine Mucus Ethyl Alcohol COVID-19 (JUDITH) COVID-19 Clin Com Hep Bs Antigen Hep Bs Antibody Hep B Core Total Ab Hepatitis C Ab (EIA) 03/07/21 03/07/21 03/07/21 13:13 16:35 21:22 WBC RBC Hgb Hct MCV MCH MCHC RDW Plt Count MPV Immature Gran % (Auto) Neut % (Auto) Lymph % (Auto) [place] % (Auto) Eos % (Auto) Baso % (Auto) Lymph # (Auto) [place] # (Auto) Eos # (Auto) Baso # (Auto) Abs Immat Gran (auto) Absolute Neuts (auto) Absolute Nucleated RBC Nucleated RBC % (auto) D-Dimer Sodium Potassium Chloride Carbon Dioxide Anion Gap BUN Creatinine Estim Creat Clear Calc Estimated GFR POC Glucose 165 H 190 H Random Glucose Estimat Average Glucose Hemoglobin A1c % Lactic Acid 0.8 Calcium Magnesium Total Bilirubin Direct Bilirubin AST ALT Alkaline Phosphatase Ammonia Lactate Dehydrogenase Total Creatine Kinase C-Reactive Protein B-Natriuretic Peptide NT-Pro-B Natriuret Pep Total Protein Albumin Vitamin B12 Folate Procalcitonin Urine Color Urine Appearance Urine pH Ur Specific [place] Urine Protein Urine Glucose (UA) Urine Ketones Urine Blood Urine Nitrite Ur Leukocyte Esterase Urine RBC Urine WBC Ur Squamous Epith Cells Urine Bacteria Hyaline Casts Granular Casts Urine Mucus Ethyl Alcohol COVID-19 (JUDITH) COVID-19 Clin Com Hep Bs Antigen Hep Bs Antibody Hep B Core Total Ab Hepatitis C Ab (EIA) 03/07/21 03/07/21 03/07/21 21:22 21:23 21:23 WBC 8.2 RBC 4.37 L Hgb 12.1 L Hct 36.1 L MCV 82.6 MCH 27.7 MCHC 33.5 RDW 13.3 Plt Count 189 MPV 11.2 Immature Gran % (Auto) 0.6 H Neut % (Auto) 65.9 Lymph % (Auto) 25.1 [place] % (Auto) 7.5 Eos % (Auto) 0.7 Baso % (Auto) 0.2 Lymph # (Auto) 2.1 [place] # (Auto) 0.6 Eos # (Auto) 0.1 Baso # (Auto) 0.0 Abs Immat Gran (auto) 0.05 H Absolute Neuts (auto) 5.4 Absolute Nucleated RBC 0.000 Nucleated RBC % (auto) 0.0 D-Dimer 337 Sodium Potassium Chloride Carbon Dioxide Anion Gap BUN Creatinine Estim Creat Clear Calc Estimated GFR POC Glucose Random Glucose Estimat Average Glucose Hemoglobin A1c % Lactic Acid Calcium Magnesium Total Bilirubin Direct Bilirubin AST ALT Alkaline Phosphatase Ammonia Lactate Dehydrogenase Total Creatine Kinase C-Reactive Protein B-Natriuretic Peptide NT-Pro-B Natriuret Pep Total Protein Albumin Vitamin B12 Folate Procalcitonin Urine Color YELLOW Urine Appearance CLEAR Urine pH 6.0 Ur Specific [place] >= 1.030 H Urine Protein TRACE Urine Glucose (UA) >=1000 H Urine Ketones NEG Urine Blood NEG Urine Nitrite NEG Ur Leukocyte Esterase NEG Urine RBC 1-4 Urine WBC 1-4 Ur Squamous Epith Cells 1+ Urine Bacteria 1+ Hyaline Casts 0-2 Granular Casts 0-2 Urine Mucus 2+ Ethyl Alcohol COVID-19 (JUDITH) COVID-19 Clin Com Hep Bs Antigen Hep Bs Antibody Hep B Core Total Ab Hepatitis C Ab (EIA) 03/07/21 03/07/21 03/07/21 21:23 21:23 21:23 WBC RBC Hgb Hct MCV MCH MCHC RDW Plt Count MPV Immature Gran % (Auto) Neut % (Auto) Lymph % (Auto) [place] % (Auto) Eos % (Auto) Baso % (Auto) Lymph # (Auto) [place] # (Auto) Eos # (Auto) Baso # (Auto) Abs Immat Gran (auto) Absolute Neuts (auto) Absolute Nucleated RBC Nucleated RBC % (auto) D-Dimer Sodium 146 H Potassium 2.9 L Chloride 111 H Carbon Dioxide 25 Anion Gap 13 BUN 21 H Creatinine 0.85 Estim Creat Clear Calc 118.8 Estimated GFR > 60 POC Glucose Random Glucose 124 H D Estimat Average Glucose Hemoglobin A1c % Lactic Acid Calcium 8.7 Magnesium Total Bilirubin 0.6 Direct Bilirubin AST 50 H ALT 56 H Alkaline Phosphatase 79 Ammonia Lactate Dehydrogenase Total Creatine Kinase C-Reactive Protein B-Natriuretic Peptide 86 NT-Pro-B Natriuret Pep Cancelled Total Protein 5.5 L Albumin 3.8 Vitamin B12 Folate Procalcitonin Urine Color Urine Appearance Urine pH Ur Specific [place] Urine Protein Urine Glucose (UA) Urine Ketones Urine Blood Urine Nitrite Ur Leukocyte Esterase Urine RBC Urine WBC Ur Squamous Epith Cells Urine Bacteria Hyaline Casts Granular Casts Urine Mucus Ethyl Alcohol COVID-19 (JUDITH) COVID-19 Clin Com Hep Bs Antigen Hep Bs Antibody Hep B Core Total Ab Hepatitis C Ab (EIA) 03/07/21 03/08/21 03/08/21 21:43 06:32 08:19 WBC RBC Hgb Hct MCV MCH MCHC RDW Plt Count MPV Immature Gran % (Auto) Neut % (Auto) Lymph % (Auto) [place] % (Auto) Eos % (Auto) Baso % (Auto) Lymph # (Auto) [place] # (Auto) Eos # (Auto) Baso # (Auto) Abs Immat Gran (auto) Absolute Neuts (auto) Absolute Nucleated RBC Nucleated RBC % (auto) D-Dimer Sodium 143 Potassium 2.9 L Chloride 108 Carbon Dioxide 26 Anion Gap 12 BUN 17 H Creatinine 0.82 Estim Creat Clear Calc 123.1 Estimated GFR > 60 POC Glucose 127 H 144 H Random Glucose 173 H D Estimat Average Glucose Hemoglobin A1c % Lactic Acid Calcium 8.9 Magnesium 2.0 Total Bilirubin Direct Bilirubin AST ALT Alkaline Phosphatase Ammonia Lactate Dehydrogenase Total Creatine Kinase 584 H D C-Reactive Protein 1.08 H B-Natriuretic Peptide NT-Pro-B Natriuret Pep Total Protein Albumin Vitamin B12 Folate Procalcitonin Urine Color Urine Appearance Urine pH Ur Specific [place] Urine Protein Urine Glucose (UA) Urine Ketones Urine Blood Urine Nitrite Ur Leukocyte Esterase Urine RBC Urine WBC Ur Squamous Epith Cells Urine Bacteria Hyaline Casts Granular Casts Urine Mucus Ethyl Alcohol COVID-19 (JUDITH) COVID-19 Clin Com Hep Bs Antigen Hep Bs Antibody Hep B Core Total Ab Hepatitis C Ab (EIA) 03/08/21 03/08/21 03/08/21 08:19 12:50 17:26 WBC RBC Hgb Hct MCV MCH MCHC RDW Plt Count MPV Immature Gran % (Auto) Neut % (Auto) Lymph % (Auto) [place] % (Auto) Eos % (Auto) Baso % (Auto) Lymph # (Auto) [place] # (Auto) Eos # (Auto) Baso # (Auto) Abs Immat Gran (auto) Absolute Neuts (auto) Absolute Nucleated RBC Nucleated RBC % (auto) D-Dimer Sodium Potassium Chloride Carbon Dioxide Anion Gap BUN Creatinine Estim Creat Clear Calc Estimated GFR POC Glucose 174 H 152 H Random Glucose Estimat Average Glucose Hemoglobin A1c % Lactic Acid Calcium Magnesium Total Bilirubin Direct Bilirubin AST ALT Alkaline Phosphatase Ammonia Lactate Dehydrogenase Total Creatine Kinase C-Reactive Protein B-Natriuretic Peptide NT-Pro-B Natriuret Pep Total Protein Albumin Vitamin B12 Folate Procalcitonin 0.08 Urine Color Urine Appearance Urine pH Ur Specific [place] Urine Protein Urine Glucose (UA) Urine Ketones Urine Blood Urine Nitrite Ur Leukocyte Esterase Urine RBC Urine WBC Ur Squamous Epith Cells Urine Bacteria Hyaline Casts Granular Casts Urine Mucus Ethyl Alcohol COVID-19 (JUDITH) COVID-19 Clin Com Hep Bs Antigen Hep Bs Antibody Hep B Core Total Ab Hepatitis C Ab (EIA) 03/08/21 03/09/21 03/09/21 21:02 06:28 08:18 WBC 7.8 RBC 4.39 L Hgb 12.3 L Hct 36.0 L MCV 82.0 MCH 28.0 MCHC 34.2 RDW 13.3 Plt Count 205 MPV 11.5 Immature Gran % (Auto) Neut % (Auto) Lymph % (Auto) [place] % (Auto) Eos % (Auto) Baso % (Auto) Lymph # (Auto) [place] # (Auto) Eos # (Auto) Baso # (Auto) Abs Immat Gran (auto) Absolute Neuts (auto) Absolute Nucleated RBC 0.000 Nucleated RBC % (auto) 0.0 D-Dimer Sodium Potassium Chloride Carbon Dioxide Anion Gap BUN Creatinine Estim Creat Clear Calc Estimated GFR POC Glucose 197 H 154 H Random Glucose Estimat Average Glucose Hemoglobin A1c % Lactic Acid Calcium Magnesium Total Bilirubin Direct Bilirubin AST ALT Alkaline Phosphatase Ammonia Lactate Dehydrogenase Total Creatine Kinase C-Reactive Protein B-Natriuretic Peptide NT-Pro-B Natriuret Pep Total Protein Albumin Vitamin B12 Folate Procalcitonin Urine Color Urine Appearance Urine pH Ur Specific [place] Urine Protein Urine Glucose (UA) Urine Ketones Urine Blood Urine Nitrite Ur Leukocyte Esterase Urine RBC Urine WBC Ur Squamous Epith Cells Urine Bacteria Hyaline Casts Granular Casts Urine Mucus Ethyl Alcohol COVID-19 (JUDITH) COVID-19 Clin Com Hep Bs Antigen Hep Bs Antibody Hep B Core Total Ab Hepatitis C Ab (EIA) 03/09/21 03/09/21 03/09/21 08:18 08:18 11:46 WBC RBC Hgb Hct MCV MCH MCHC RDW Plt Count MPV Immature Gran % (Auto) Neut % (Auto) Lymph % (Auto) [place] % (Auto) Eos % (Auto) Baso % (Auto) Lymph # (Auto) [place] # (Auto) Eos # (Auto) Baso # (Auto) Abs Immat Gran (auto) Absolute Neuts (auto) Absolute Nucleated RBC Nucleated RBC % (auto) D-Dimer Sodium 144 Potassium 3.2 L Chloride 110 H Carbon Dioxide 26 Anion Gap 11 L BUN 17 H Creatinine 0.85 Estim Creat Clear Calc 118.8 Estimated GFR > 60 POC Glucose 208 H Random Glucose 152 H Estimat Average Glucose Hemoglobin A1c % Lactic Acid Calcium 9.2 Magnesium Total Bilirubin Direct Bilirubin AST ALT Alkaline Phosphatase Ammonia Lactate Dehydrogenase Total Creatine Kinase 299 H D C-Reactive Protein B-Natriuretic Peptide NT-Pro-B Natriuret Pep Total Protein Albumin Vitamin B12 Folate Procalcitonin 0.08 Urine Color Urine Appearance Urine pH Ur Specific [place] Urine Protein Urine Glucose (UA) Urine Ketones Urine Blood Urine Nitrite Ur Leukocyte Esterase Urine RBC Urine WBC Ur Squamous Epith Cells Urine Bacteria Hyaline Casts Granular Casts Urine Mucus Ethyl Alcohol COVID-19 (JUDITH) COVID-19 Clin Com Hep Bs Antigen Hep Bs Antibody Hep B Core Total Ab Hepatitis C Ab (EIA) 03/09/21 03/09/21 03/10/21 16:55 21:50 09:06 WBC RBC Hgb Hct MCV MCH MCHC RDW Plt Count MPV Immature Gran % (Auto) Neut % (Auto) Lymph % (Auto) [place] % (Auto) Eos % (Auto) Baso % (Auto) Lymph # (Auto) [place] # (Auto) Eos # (Auto) Baso # (Auto) Abs Immat Gran (auto) Absolute Neuts (auto) Absolute Nucleated RBC Nucleated RBC % (auto) D-Dimer Sodium Potassium Chloride Carbon Dioxide Anion Gap BUN Creatinine Estim Creat Clear Calc Estimated GFR POC Glucose 138 H 169 H 146 H Random Glucose Estimat Average Glucose Hemoglobin A1c % Lactic Acid Calcium Magnesium Total Bilirubin Direct Bilirubin AST ALT Alkaline Phosphatase Ammonia Lactate Dehydrogenase Total Creatine Kinase C-Reactive Protein B-Natriuretic Peptide NT-Pro-B Natriuret Pep Total Protein Albumin Vitamin B12 Folate Procalcitonin Urine Color Urine Appearance Urine pH Ur Specific [place] Urine Protein Urine Glucose (UA) Urine Ketones Urine Blood Urine Nitrite Ur Leukocyte Esterase Urine RBC Urine WBC Ur Squamous Epith Cells Urine Bacteria Hyaline Casts Granular Casts Urine Mucus Ethyl Alcohol COVID-19 (JUDITH) COVID-19 Clin Com Hep Bs Antigen Hep Bs Antibody Hep B Core Total Ab Hepatitis C Ab (EIA) 03/10/21 03/10/21 03/10/21 11:37 12:34 16:34 WBC RBC Hgb Hct MCV MCH MCHC RDW Plt Count MPV Immature Gran % (Auto) Neut % (Auto) Lymph % (Auto) [place] % (Auto) Eos % (Auto) Baso % (Auto) Lymph # (Auto) [place] # (Auto) Eos # (Auto) Baso # (Auto) Abs Immat Gran (auto) Absolute Neuts (auto) Absolute Nucleated RBC Nucleated RBC % (auto) D-Dimer Sodium 144 Potassium 3.5 Chloride 109 H Carbon Dioxide 24 Anion Gap 15 BUN 22 H Creatinine 0.98 Estim Creat Clear Calc 103.0 Estimated GFR > 60 POC Glucose 184 H 157 H Random Glucose 215 H D Estimat Average Glucose Hemoglobin A1c % Lactic Acid Calcium 9.8 D Magnesium Total Bilirubin Direct Bilirubin AST ALT Alkaline Phosphatase Ammonia Lactate Dehydrogenase Total Creatine Kinase C-Reactive Protein B-Natriuretic Peptide NT-Pro-B Natriuret Pep Total Protein Albumin Vitamin B12 Folate Procalcitonin Urine Color Urine Appearance Urine pH Ur Specific [place] Urine Protein Urine Glucose (UA) Urine Ketones Urine Blood Urine Nitrite Ur Leukocyte Esterase Urine RBC Urine WBC Ur Squamous Epith Cells Urine Bacteria Hyaline Casts Granular Casts Urine Mucus Ethyl Alcohol COVID-19 (JUDITH) COVID-19 Clin Com Hep Bs Antigen Hep Bs Antibody Hep B Core Total Ab Hepatitis C Ab (EIA) 03/10/21 03/11/21 03/11/21 21:28 07:57 08:17 WBC RBC Hgb Hct MCV MCH MCHC RDW Plt Count MPV Immature Gran % (Auto) Neut % (Auto) Lymph % (Auto) [place] % (Auto) Eos % (Auto) Baso % (Auto) Lymph # (Auto) [place] # (Auto) Eos # (Auto) Baso # (Auto) Abs Immat Gran (auto) Absolute Neuts (auto) Absolute Nucleated RBC Nucleated RBC % (auto) D-Dimer Sodium 142 Potassium 3.1 L Chloride 106 Carbon Dioxide 27 Anion Gap 12 BUN 19 H Creatinine 0.85 Estim Creat Clear Calc 118.8 Estimated GFR > 60 POC Glucose 285 H 146 H Random Glucose 156 H Estimat Average Glucose Hemoglobin A1c % Lactic Acid Calcium 9.0 D Magnesium Total Bilirubin Direct Bilirubin AST ALT Alkaline Phosphatase Ammonia Lactate Dehydrogenase Total Creatine Kinase C-Reactive Protein B-Natriuretic Peptide NT-Pro-B Natriuret Pep Total Protein Albumin Vitamin B12 Folate Procalcitonin Urine Color Urine Appearance Urine pH Ur Specific [place] Urine Protein Urine Glucose (UA) Urine Ketones Urine Blood Urine Nitrite Ur Leukocyte Esterase Urine RBC Urine WBC Ur Squamous Epith Cells Urine Bacteria Hyaline Casts Granular Casts Urine Mucus Ethyl Alcohol COVID-19 (JUDITH) COVID-19 Clin Com Hep Bs Antigen Hep Bs Antibody Hep B Core Total Ab Hepatitis C Ab (EIA) 03/11/21 03/11/21 03/11/21 12:05 16:48 20:35 WBC RBC Hgb Hct MCV MCH MCHC RDW Plt Count MPV Immature Gran % (Auto) Neut % (Auto) Lymph % (Auto) [place] % (Auto) Eos % (Auto) Baso % (Auto) Lymph # (Auto) [place] # (Auto) Eos # (Auto) Baso # (Auto) Abs Immat Gran (auto) Absolute Neuts (auto) Absolute Nucleated RBC Nucleated RBC % (auto) D-Dimer Sodium Potassium Chloride Carbon Dioxide Anion Gap BUN Creatinine Estim Creat Clear Calc Estimated GFR POC Glucose 214 H 143 H 241 H Random Glucose Estimat Average Glucose Hemoglobin A1c % Lactic Acid Calcium Magnesium Total Bilirubin Direct Bilirubin AST ALT Alkaline Phosphatase Ammonia Lactate Dehydrogenase Total Creatine Kinase C-Reactive Protein B-Natriuretic Peptide NT-Pro-B Natriuret Pep Total Protein Albumin Vitamin B12 Folate Procalcitonin Urine Color Urine Appearance Urine pH Ur Specific [place] Urine Protein Urine Glucose (UA) Urine Ketones Urine Blood Urine Nitrite Ur Leukocyte Esterase Urine RBC Urine WBC Ur Squamous Epith Cells Urine Bacteria Hyaline Casts Granular Casts Urine Mucus Ethyl Alcohol COVID-19 (JUDITH) COVID-19 Clin Com Hep Bs Antigen Hep Bs Antibody Hep B Core Total Ab Hepatitis C Ab (EIA) 03/12/21 03/12/21 03/12/21 06:38 08:02 12:00 WBC RBC Hgb Hct MCV MCH MCHC RDW Plt Count MPV Immature Gran % (Auto) Neut % (Auto) Lymph % (Auto) [place] % (Auto) Eos % (Auto) Baso % (Auto) Lymph # (Auto) [place] # (Auto) Eos # (Auto) Baso # (Auto) Abs Immat Gran (auto) Absolute Neuts (auto) Absolute Nucleated RBC Nucleated RBC % (auto) D-Dimer Sodium 144 Potassium 3.4 Chloride 108 Carbon Dioxide 27 Anion Gap 12 BUN 16 Creatinine 0.86 Estim Creat Clear Calc 130.7 Estimated GFR > 60 POC Glucose 175 H 123 H Random Glucose 147 H Estimat Average Glucose Hemoglobin A1c % Lactic Acid Calcium 8.9 Magnesium Total Bilirubin 0.6 Direct Bilirubin AST 31 ALT 55 H Alkaline Phosphatase 84 Ammonia Lactate Dehydrogenase Total Creatine Kinase C-Reactive Protein B-Natriuretic Peptide NT-Pro-B Natriuret Pep Total Protein 5.6 L Albumin 3.8 Vitamin B12 Folate Procalcitonin Urine Color Urine Appearance Urine pH Ur Specific [place] Urine Protein Urine Glucose (UA) Urine Ketones Urine Blood Urine Nitrite Ur Leukocyte Esterase Urine RBC Urine WBC Ur Squamous Epith Cells Urine Bacteria Hyaline Casts Granular Casts Urine Mucus Ethyl Alcohol COVID-19 (JUDITH) COVID-19 Clin Com Hep Bs Antigen Hep Bs Antibody Hep B Core Total Ab Hepatitis C Ab (EIA) 03/12/21 03/12/21 03/13/21 17:25 19:57 09:17 WBC RBC Hgb Hct MCV MCH MCHC RDW Plt Count MPV Immature Gran % (Auto) Neut % (Auto) Lymph % (Auto) [place] % (Auto) Eos % (Auto) Baso % (Auto) Lymph # (Auto) [place] # (Auto) Eos # (Auto) Baso # (Auto) Abs Immat Gran (auto) Absolute Neuts (auto) Absolute Nucleated RBC Nucleated RBC % (auto) D-Dimer Sodium Potassium Chloride Carbon Dioxide Anion Gap BUN Creatinine Estim Creat Clear Calc Estimated GFR POC Glucose 181 H 191 H 130 H Random Glucose Estimat Average Glucose Hemoglobin A1c % Lactic Acid Calcium Magnesium Total Bilirubin Direct Bilirubin AST ALT Alkaline Phosphatase Ammonia Lactate Dehydrogenase Total Creatine Kinase C-Reactive Protein B-Natriuretic Peptide NT-Pro-B Natriuret Pep Total Protein Albumin Vitamin B12 Folate Procalcitonin Urine Color Urine Appearance Urine pH Ur Specific [place] Urine Protein Urine Glucose (UA) Urine Ketones Urine Blood Urine Nitrite Ur Leukocyte Esterase Urine RBC Urine WBC Ur Squamous Epith Cells Urine Bacteria Hyaline Casts Granular Casts Urine Mucus Ethyl Alcohol COVID-19 (JUDITH) COVID-19 Clin Com Hep Bs Antigen Hep Bs Antibody Hep B Core Total Ab Hepatitis C Ab (EIA) 03/13/21 03/13/21 03/13/21 12:29 16:31 21:12 WBC RBC Hgb Hct MCV MCH MCHC RDW Plt Count MPV Immature Gran % (Auto) Neut % (Auto) Lymph % (Auto) [place] % (Auto) Eos % (Auto) Baso % (Auto) Lymph # (Auto) [place] # (Auto) Eos # (Auto) Baso # (Auto) Abs Immat Gran (auto) Absolute Neuts (auto) Absolute Nucleated RBC Nucleated RBC % (auto) D-Dimer Sodium Potassium Chloride Carbon Dioxide Anion Gap BUN Creatinine Estim Creat Clear Calc Estimated GFR POC Glucose 277 H 265 H 130 H Random Glucose Estimat Average Glucose Hemoglobin A1c % Lactic Acid Calcium Magnesium Total Bilirubin Direct Bilirubin AST ALT Alkaline Phosphatase Ammonia Lactate Dehydrogenase Total Creatine Kinase C-Reactive Protein B-Natriuretic Peptide NT-Pro-B Natriuret Pep Total Protein Albumin Vitamin B12 Folate Procalcitonin Urine Color Urine Appearance Urine pH Ur Specific [place] Urine Protein Urine Glucose (UA) Urine Ketones Urine Blood Urine Nitrite Ur Leukocyte Esterase Urine RBC Urine WBC Ur Squamous Epith Cells Urine Bacteria Hyaline Casts Granular Casts Urine Mucus Ethyl Alcohol COVID-19 (JUDITH) COVID-19 Clin Com Hep Bs Antigen Hep Bs Antibody Hep B Core Total Ab Hepatitis C Ab (EIA) 03/14/21 03/14/21 03/15/21 08:52 21:35 08:33 WBC RBC Hgb Hct MCV MCH MCHC RDW Plt Count MPV Immature Gran % (Auto) Neut % (Auto) Lymph % (Auto) [place] % (Auto) Eos % (Auto) Baso % (Auto) Lymph # (Auto) [place] # (Auto) Eos # (Auto) Baso # (Auto) Abs Immat Gran (auto) Absolute Neuts (auto) Absolute Nucleated RBC Nucleated RBC % (auto) D-Dimer Sodium Potassium Chloride Carbon Dioxide Anion Gap BUN Creatinine Estim Creat Clear Calc Estimated GFR POC Glucose 163 H 140 H 170 H Random Glucose Estimat Average Glucose Hemoglobin A1c % Lactic Acid Calcium Magnesium Total Bilirubin Direct Bilirubin AST ALT Alkaline Phosphatase Ammonia Lactate Dehydrogenase Total Creatine Kinase C-Reactive Protein B-Natriuretic Peptide NT-Pro-B Natriuret Pep Total Protein Albumin Vitamin B12 Folate Procalcitonin Urine Color Urine Appearance Urine pH Ur Specific [place] Urine Protein Urine Glucose (UA) Urine Ketones Urine Blood Urine Nitrite Ur Leukocyte Esterase Urine RBC Urine WBC Ur Squamous Epith Cells Urine Bacteria Hyaline Casts Granular Casts Urine Mucus Ethyl Alcohol COVID-19 (JUDITH) COVID-19 Clin Com Hep Bs Antigen Hep Bs Antibody Hep B Core Total Ab Hepatitis C Ab (EIA) 03/15/21 03/15/21 03/16/21 17:26 20:20 07:07 WBC RBC Hgb Hct MCV MCH MCHC RDW Plt Count MPV Immature Gran % (Auto) Neut % (Auto) Lymph % (Auto) [place] % (Auto) Eos % (Auto) Baso % (Auto) Lymph # (Auto) [place] # (Auto) Eos # (Auto) Baso # (Auto) Abs Immat Gran (auto) Absolute Neuts (auto) Absolute Nucleated RBC Nucleated RBC % (auto) D-Dimer Sodium Potassium Chloride Carbon Dioxide Anion Gap BUN Creatinine Estim Creat Clear Calc Estimated GFR POC Glucose 130 H 227 H 162 H Random Glucose Estimat Average Glucose Hemoglobin A1c % Lactic Acid Calcium Magnesium Total Bilirubin Direct Bilirubin AST ALT Alkaline Phosphatase Ammonia Lactate Dehydrogenase Total Creatine Kinase C-Reactive Protein B-Natriuretic Peptide NT-Pro-B Natriuret Pep Total Protein Albumin Vitamin B12 Folate Procalcitonin Urine Color Urine Appearance Urine pH Ur Specific [place] Urine Protein Urine Glucose (UA) Urine Ketones Urine Blood Urine Nitrite Ur Leukocyte Esterase Urine RBC Urine WBC Ur Squamous Epith Cells Urine Bacteria Hyaline Casts Granular Casts Urine Mucus Ethyl Alcohol COVID-19 (JUDITH) COVID-19 Clin Com Hep Bs Antigen Hep Bs Antibody Hep B Core Total Ab Hepatitis C Ab (EIA) 03/16/21 03/16/21 03/16/21 12:23 16:42 21:18 WBC RBC Hgb Hct MCV MCH MCHC RDW Plt Count MPV Immature Gran % (Auto) Neut % (Auto) Lymph % (Auto) [place] % (Auto) Eos % (Auto) Baso % (Auto) Lymph # (Auto) [place] # (Auto) Eos # (Auto) Baso # (Auto) Abs Immat Gran (auto) Absolute Neuts (auto) Absolute Nucleated RBC Nucleated RBC % (auto) D-Dimer Sodium Potassium Chloride Carbon Dioxide Anion Gap BUN Creatinine Estim Creat Clear Calc Estimated GFR POC Glucose 145 H 171 H 179 H Random Glucose Estimat Average Glucose Hemoglobin A1c % Lactic Acid Calcium Magnesium Total Bilirubin Direct Bilirubin AST ALT Alkaline Phosphatase Ammonia Lactate Dehydrogenase Total Creatine Kinase C-Reactive Protein B-Natriuretic Peptide NT-Pro-B Natriuret Pep Total Protein Albumin Vitamin B12 Folate Procalcitonin Urine Color Urine Appearance Urine pH Ur Specific [place] Urine Protein Urine Glucose (UA) Urine Ketones Urine Blood Urine Nitrite Ur Leukocyte Esterase Urine RBC Urine WBC Ur Squamous Epith Cells Urine Bacteria Hyaline Casts Granular Casts Urine Mucus Ethyl Alcohol COVID-19 (JUDITH) COVID-19 Clin Com Hep Bs Antigen Hep Bs Antibody Hep B Core Total Ab Hepatitis C Ab (EIA) 03/17/21 03/17/21 03/17/21 05:57 12:32 16:39 WBC RBC Hgb Hct MCV MCH MCHC RDW Plt Count MPV Immature Gran % (Auto) Neut % (Auto) Lymph % (Auto) [place] % (Auto) Eos % (Auto) Baso % (Auto) Lymph # (Auto) [place] # (Auto) Eos # (Auto) Baso # (Auto) Abs Immat Gran (auto) Absolute Neuts (auto) Absolute Nucleated RBC Nucleated RBC % (auto) D-Dimer Sodium Potassium Chloride Carbon Dioxide Anion Gap BUN Creatinine Estim Creat Clear Calc Estimated GFR POC Glucose 138 H 175 H 164 H Random Glucose Estimat Average Glucose Hemoglobin A1c % Lactic Acid Calcium Magnesium Total Bilirubin Direct Bilirubin AST ALT Alkaline Phosphatase Ammonia Lactate Dehydrogenase Total Creatine Kinase C-Reactive Protein B-Natriuretic Peptide NT-Pro-B Natriuret Pep Total Protein Albumin Vitamin B12 Folate Procalcitonin Urine Color Urine Appearance Urine pH Ur Specific [place] Urine Protein Urine Glucose (UA) Urine Ketones Urine Blood Urine Nitrite Ur Leukocyte Esterase Urine RBC Urine WBC Ur Squamous Epith Cells Urine Bacteria Hyaline Casts Granular Casts Urine Mucus Ethyl Alcohol COVID-19 (JUDITH) COVID-19 Clin Com Hep Bs Antigen Hep Bs Antibody Hep B Core Total Ab Hepatitis C Ab (EIA) 03/17/21 03/18/21 03/18/21 20:43 06:07 16:26 WBC RBC Hgb Hct MCV MCH MCHC RDW Plt Count MPV Immature Gran % (Auto) Neut % (Auto) Lymph % (Auto) [place] % (Auto) Eos % (Auto) Baso % (Auto) Lymph # (Auto) [place] # (Auto) Eos # (Auto) Baso # (Auto) Abs Immat Gran (auto) Absolute Neuts (auto) Absolute Nucleated RBC Nucleated RBC % (auto) D-Dimer Sodium Potassium Chloride Carbon Dioxide Anion Gap BUN Creatinine Estim Creat Clear Calc Estimated GFR POC Glucose 183 H 165 H 177 H Random Glucose Estimat Average Glucose Hemoglobin A1c % Lactic Acid Calcium Magnesium Total Bilirubin Direct Bilirubin AST ALT Alkaline Phosphatase Ammonia Lactate Dehydrogenase Total Creatine Kinase C-Reactive Protein B-Natriuretic Peptide NT-Pro-B Natriuret Pep Total Protein Albumin Vitamin B12 Folate Procalcitonin Urine Color Urine Appearance Urine pH Ur Specific [place] Urine Protein Urine Glucose (UA) Urine Ketones Urine Blood Urine Nitrite Ur Leukocyte Esterase Urine RBC Urine WBC Ur Squamous Epith Cells Urine Bacteria Hyaline Casts Granular Casts Urine Mucus Ethyl Alcohol COVID-19 (JUDITH) COVID-19 Clin Com Hep Bs Antigen Hep Bs Antibody Hep B Core Total Ab Hepatitis C Ab (EIA) 03/18/21 03/19/21 03/19/21 20:03 05:56 11:43 WBC RBC Hgb Hct MCV MCH MCHC RDW Plt Count MPV Immature Gran % (Auto) Neut % (Auto) Lymph % (Auto) [place] % (Auto) Eos % (Auto) Baso % (Auto) Lymph # (Auto) [place] # (Auto) Eos # (Auto) Baso # (Auto) Abs Immat Gran (auto) Absolute Neuts (auto) Absolute Nucleated RBC Nucleated RBC % (auto) D-Dimer Sodium Potassium Chloride Carbon Dioxide Anion Gap BUN Creatinine Estim Creat Clear Calc Estimated GFR POC Glucose 229 H 171 H 170 H Random Glucose Estimat Average Glucose Hemoglobin A1c % Lactic Acid Calcium Magnesium Total Bilirubin Direct Bilirubin AST ALT Alkaline Phosphatase Ammonia Lactate Dehydrogenase Total Creatine Kinase C-Reactive Protein B-Natriuretic Peptide NT-Pro-B Natriuret Pep Total Protein Albumin Vitamin B12 Folate Procalcitonin Urine Color Urine Appearance Urine pH Ur Specific [place] Urine Protein Urine Glucose (UA) Urine Ketones Urine Blood Urine Nitrite Ur Leukocyte Esterase Urine RBC Urine WBC Ur Squamous Epith Cells Urine Bacteria Hyaline Casts Granular Casts Urine Mucus Ethyl Alcohol COVID-19 (JUDITH) COVID-19 Clin Com Hep Bs Antigen Hep Bs Antibody Hep B Core Total Ab Hepatitis C Ab (EIA) 03/19/21 03/19/21 03/20/21 16:33 20:49 06:28 WBC RBC Hgb Hct MCV MCH MCHC RDW Plt Count MPV Immature Gran % (Auto) Neut % (Auto) Lymph % (Auto) [place] % (Auto) Eos % (Auto) Baso % (Auto) Lymph # (Auto) [place] # (Auto) Eos # (Auto) Baso # (Auto) Abs Immat Gran (auto) Absolute Neuts (auto) Absolute Nucleated RBC Nucleated RBC % (auto) D-Dimer Sodium Potassium Chloride Carbon Dioxide Anion Gap BUN Creatinine Estim Creat Clear Calc Estimated GFR POC Glucose 230 H 203 H 179 H Random Glucose Estimat Average Glucose Hemoglobin A1c % Lactic Acid Calcium Magnesium Total Bilirubin Direct Bilirubin AST ALT Alkaline Phosphatase Ammonia Lactate Dehydrogenase Total Creatine Kinase C-Reactive Protein B-Natriuretic Peptide NT-Pro-B Natriuret Pep Total Protein Albumin Vitamin B12 Folate Procalcitonin Urine Color Urine Appearance Urine pH Ur Specific [place] Urine Protein Urine Glucose (UA) Urine Ketones Urine Blood Urine Nitrite Ur Leukocyte Esterase Urine RBC Urine WBC Ur Squamous Epith Cells Urine Bacteria Hyaline Casts Granular Casts Urine Mucus Ethyl Alcohol COVID-19 (JUDITH) COVID-19 Clin Com Hep Bs Antigen Hep Bs Antibody Hep B Core Total Ab Hepatitis C Ab (EIA) 03/20/21 03/20/21 03/20/21 08:02 11:24 16:35 WBC RBC Hgb Hct MCV MCH MCHC RDW Plt Count MPV Immature Gran % (Auto) Neut % (Auto) Lymph % (Auto) [place] % (Auto) Eos % (Auto) Baso % (Auto) Lymph # (Auto) [place] # (Auto) Eos # (Auto) Baso # (Auto) Abs Immat Gran (auto) Absolute Neuts (auto) Absolute Nucleated RBC Nucleated RBC % (auto) D-Dimer Sodium Potassium Chloride Carbon Dioxide Anion Gap BUN Creatinine Estim Creat Clear Calc Estimated GFR POC Glucose 172 H 388 H* 135 H Random Glucose Estimat Average Glucose Hemoglobin A1c % Lactic Acid Calcium Magnesium Total Bilirubin Direct Bilirubin AST ALT Alkaline Phosphatase Ammonia Lactate Dehydrogenase Total Creatine Kinase C-Reactive Protein B-Natriuretic Peptide NT-Pro-B Natriuret Pep Total Protein Albumin Vitamin B12 Folate Procalcitonin Urine Color Urine Appearance Urine pH Ur Specific [place] Urine Protein Urine Glucose (UA) Urine Ketones Urine Blood Urine Nitrite Ur Leukocyte Esterase Urine RBC Urine WBC Ur Squamous Epith Cells Urine Bacteria Hyaline Casts Granular Casts Urine Mucus Ethyl Alcohol COVID-19 (JUDITH) COVID-19 Clin Com Hep Bs Antigen Hep Bs Antibody Hep B Core Total Ab Hepatitis C Ab (EIA) 1003/21/21 03/21/21 20:23 06:49 12:18 WBC RBC Hgb Hct MCV MCH MCHC RDW Plt Count MPV Immature Gran % (Auto) Neut % (Auto) Lymph % (Auto) [place] % (Auto) Eos % (Auto) Baso % (Auto) Lymph # (Auto) [place] # (Auto) Eos # (Auto) Baso # (Auto) Abs Immat Gran (auto) Absolute Neuts (auto) Absolute Nucleated RBC Nucleated RBC % (auto) D-Dimer Sodium Potassium Chloride Carbon Dioxide Anion Gap BUN Creatinine Estim Creat Clear Calc Estimated GFR POC Glucose 161 H 174 H 238 H Random Glucose Estimat Average Glucose Hemoglobin A1c % Lactic Acid Calcium Magnesium Total Bilirubin Direct Bilirubin AST ALT Alkaline Phosphatase Ammonia Lactate Dehydrogenase Total Creatine Kinase C-Reactive Protein B-Natriuretic Peptide NT-Pro-B Natriuret Pep Total Protein Albumin Vitamin B12 Folate Procalcitonin Urine Color Urine Appearance Urine pH Ur Specific [place] Urine Protein Urine Glucose (UA) Urine Ketones Urine Blood Urine Nitrite Ur Leukocyte Esterase Urine RBC Urine WBC Ur Squamous Epith Cells Urine Bacteria Hyaline Casts Granular Casts Urine Mucus Ethyl Alcohol COVID-19 (JUDITH) COVID-19 Clin Com Hep Bs Antigen Hep Bs Antibody Hep B Core Total Ab Hepatitis C Ab (EIA) 03/21/21 03/21/21 03/22/21 16:57 20:25 06:18 WBC RBC Hgb Hct MCV MCH MCHC RDW Plt Count MPV Immature Gran % (Auto) Neut % (Auto) Lymph % (Auto) [place] % (Auto) Eos % (Auto) Baso % (Auto) Lymph # (Auto) [place] # (Auto) Eos # (Auto) Baso # (Auto) Abs Immat Gran (auto) Absolute Neuts (auto) Absolute Nucleated RBC Nucleated RBC % (auto) D-Dimer Sodium Potassium Chloride Carbon Dioxide Anion Gap BUN Creatinine Estim Creat Clear Calc Estimated GFR POC Glucose 178 H 157 H 195 H Random Glucose Estimat Average Glucose Hemoglobin A1c % Lactic Acid Calcium Magnesium Total Bilirubin Direct Bilirubin AST ALT Alkaline Phosphatase Ammonia Lactate Dehydrogenase Total Creatine Kinase C-Reactive Protein B-Natriuretic Peptide NT-Pro-B Natriuret Pep Total Protein Albumin Vitamin B12 Folate Procalcitonin Urine Color Urine Appearance Urine pH Ur Specific [place] Urine Protein Urine Glucose (UA) Urine Ketones Urine Blood Urine Nitrite Ur Leukocyte Esterase Urine RBC Urine WBC Ur Squamous Epith Cells Urine Bacteria Hyaline Casts Granular Casts Urine Mucus Ethyl Alcohol COVID-19 (JUDITH) COVID-19 Clin Com Hep Bs Antigen Hep Bs Antibody Hep B Core Total Ab Hepatitis C Ab (EIA) 03/22/21 03/22/21 03/22/21 12:00 16:28 20:15 WBC RBC Hgb Hct MCV MCH MCHC RDW Plt Count MPV Immature Gran % (Auto) Neut % (Auto) Lymph % (Auto) [place] % (Auto) Eos % (Auto) Baso % (Auto) Lymph # (Auto) [place] # (Auto) Eos # (Auto) Baso # (Auto) Abs Immat Gran (auto) Absolute Neuts (auto) Absolute Nucleated RBC Nucleated RBC % (auto) D-Dimer Sodium Potassium Chloride Carbon Dioxide Anion Gap BUN Creatinine Estim Creat Clear Calc Estimated GFR POC Glucose 208 H 144 H 254 H Random Glucose Estimat Average Glucose Hemoglobin A1c % Lactic Acid Calcium Magnesium Total Bilirubin Direct Bilirubin AST ALT Alkaline Phosphatase Ammonia Lactate Dehydrogenase Total Creatine Kinase C-Reactive Protein B-Natriuretic Peptide NT-Pro-B Natriuret Pep Total Protein Albumin Vitamin B12 Folate Procalcitonin Urine Color Urine Appearance Urine pH Ur Specific [place] Urine Protein Urine Glucose (UA) Urine Ketones Urine Blood Urine Nitrite Ur Leukocyte Esterase Urine RBC Urine WBC Ur Squamous Epith Cells Urine Bacteria Hyaline Casts Granular Casts Urine Mucus Ethyl Alcohol COVID-19 (JUDITH) COVID-19 Clin Com Hep Bs Antigen Hep Bs Antibody Hep B Core Total Ab Hepatitis C Ab (EIA) 03/23/21 03/23/21 03/23/21 06:13 11:41 16:55 WBC RBC Hgb Hct MCV MCH MCHC RDW Plt Count MPV Immature Gran % (Auto) Neut % (Auto) Lymph % (Auto) [place] % (Auto) Eos % (Auto) Baso % (Auto) Lymph # (Auto) [place] # (Auto) Eos # (Auto) Baso # (Auto) Abs Immat Gran (auto) Absolute Neuts (auto) Absolute Nucleated RBC Nucleated RBC % (auto) D-Dimer Sodium Potassium Chloride Carbon Dioxide Anion Gap BUN Creatinine Estim Creat Clear Calc Estimated GFR POC Glucose 248 H 176 H 180 H Random Glucose Estimat Average Glucose Hemoglobin A1c % Lactic Acid Calcium Magnesium Total Bilirubin Direct Bilirubin AST ALT Alkaline Phosphatase Ammonia Lactate Dehydrogenase Total Creatine Kinase C-Reactive Protein B-Natriuretic Peptide NT-Pro-B Natriuret Pep Total Protein Albumin Vitamin B12 Folate Procalcitonin Urine Color Urine Appearance Urine pH Ur Specific [place] Urine Protein Urine Glucose (UA) Urine Ketones Urine Blood Urine Nitrite Ur Leukocyte Esterase Urine RBC Urine WBC Ur Squamous Epith Cells Urine Bacteria Hyaline Casts Granular Casts Urine Mucus Ethyl Alcohol COVID-19 (JUDITH) COVID-19 Clin Com Hep Bs Antigen Hep Bs Antibody Hep B Core Total Ab Hepatitis C Ab (EIA) 03/23/21 03/24/21 03/24/21 21:56 05:48 09:49 WBC RBC Hgb Hct MCV MCH MCHC RDW Plt Count MPV Immature Gran % (Auto) Neut % (Auto) Lymph % (Auto) [place] % (Auto) Eos % (Auto) Baso % (Auto) Lymph # (Auto) [place] # (Auto) Eos # (Auto) Baso # (Auto) Abs Immat Gran (auto) Absolute Neuts (auto) Absolute Nucleated RBC Nucleated RBC % (auto) D-Dimer Sodium Potassium Chloride Carbon Dioxide Anion Gap BUN Creatinine Estim Creat Clear Calc Estimated GFR POC Glucose 148 H 179 H 163 H Random Glucose Estimat Average Glucose Hemoglobin A1c % Lactic Acid Calcium Magnesium Total Bilirubin Direct Bilirubin AST ALT Alkaline Phosphatase Ammonia Lactate Dehydrogenase Total Creatine Kinase C-Reactive Protein B-Natriuretic Peptide NT-Pro-B Natriuret Pep Total Protein Albumin Vitamin B12 Folate Procalcitonin Urine Color Urine Appearance Urine pH Ur Specific [place] Urine Protein Urine Glucose (UA) Urine Ketones Urine Blood Urine Nitrite Ur Leukocyte Esterase Urine RBC Urine WBC Ur Squamous Epith Cells Urine Bacteria Hyaline Casts Granular Casts Urine Mucus Ethyl Alcohol COVID-19 (JUDITH) COVID-19 Clin Com Hep Bs Antigen Hep Bs Antibody Hep B Core Total Ab Hepatitis C Ab (EIA) 03/24/21 03/24/21 03/24/21 11:54 17:15 21:55 WBC RBC Hgb Hct MCV MCH MCHC RDW Plt Count MPV Immature Gran % (Auto) Neut % (Auto) Lymph % (Auto) [place] % (Auto) Eos % (Auto) Baso % (Auto) Lymph # (Auto) [place] # (Auto) Eos # (Auto) Baso # (Auto) Abs Immat Gran (auto) Absolute Neuts (auto) Absolute Nucleated RBC Nucleated RBC % (auto) D-Dimer Sodium Potassium Chloride Carbon Dioxide Anion Gap BUN Creatinine Estim Creat Clear Calc Estimated GFR POC Glucose 208 H 168 H 157 H Random Glucose Estimat Average Glucose Hemoglobin A1c % Lactic Acid Calcium Magnesium Total Bilirubin Direct Bilirubin AST ALT Alkaline Phosphatase Ammonia Lactate Dehydrogenase Total Creatine Kinase C-Reactive Protein B-Natriuretic Peptide NT-Pro-B Natriuret Pep Total Protein Albumin Vitamin B12 Folate Procalcitonin Urine Color Urine Appearance Urine pH Ur Specific [place] Urine Protein Urine Glucose (UA) Urine Ketones Urine Blood Urine Nitrite Ur Leukocyte Esterase Urine RBC Urine WBC Ur Squamous Epith Cells Urine Bacteria Hyaline Casts Granular Casts Urine Mucus Ethyl Alcohol COVID-19 (JUDITH) COVID-19 Clin Com Hep Bs Antigen Hep Bs Antibody Hep B Core Total Ab Hepatitis C Ab (EIA) 03/25/21 03/25/21 03/25/21 06:38 08:02 08:26 WBC RBC Hgb Hct MCV MCH MCHC RDW Plt Count MPV Immature Gran % (Auto) Neut % (Auto) Lymph % (Auto) [place] % (Auto) Eos % (Auto) Baso % (Auto) Lymph # (Auto) [place] # (Auto) Eos # (Auto) Baso # (Auto) Abs Immat Gran (auto) Absolute Neuts (auto) Absolute Nucleated RBC Nucleated RBC % (auto) D-Dimer Sodium Potassium Chloride Carbon Dioxide Anion Gap BUN Creatinine 1.06 Estim Creat Clear Calc 109.0 Estimated GFR > 60 POC Glucose 191 H 172 H Random Glucose Estimat Average Glucose Hemoglobin A1c % Lactic Acid Calcium Magnesium Total Bilirubin Direct Bilirubin AST ALT Alkaline Phosphatase Ammonia Lactate Dehydrogenase Total Creatine Kinase C-Reactive Protein B-Natriuretic Peptide NT-Pro-B Natriuret Pep Total Protein Albumin Vitamin B12 Folate Procalcitonin Urine Color Urine Appearance Urine pH Ur Specific [place] Urine Protein Urine Glucose (UA) Urine Ketones Urine Blood Urine Nitrite Ur Leukocyte Esterase Urine RBC Urine WBC Ur Squamous Epith Cells Urine Bacteria Hyaline Casts Granular Casts Urine Mucus Ethyl Alcohol COVID-19 (JUDITH) COVID-19 Clin Com Hep Bs Antigen Hep Bs Antibody Hep B Core Total Ab Hepatitis C Ab (EIA) 03/25/21 03/25/21 03/25/21 11:48 16:50 21:43 WBC RBC Hgb Hct MCV MCH MCHC RDW Plt Count MPV Immature Gran % (Auto) Neut % (Auto) Lymph % (Auto) [place] % (Auto) Eos % (Auto) Baso % (Auto) Lymph # (Auto) [place] # (Auto) Eos # (Auto) Baso # (Auto) Abs Immat Gran (auto) Absolute Neuts (auto) Absolute Nucleated RBC Nucleated RBC % (auto) D-Dimer Sodium Potassium Chloride Carbon Dioxide Anion Gap BUN Creatinine Estim Creat Clear Calc Estimated GFR POC Glucose 267 H 116 H 162 H Random Glucose Estimat Average Glucose Hemoglobin A1c % Lactic Acid Calcium Magnesium Total Bilirubin Direct Bilirubin AST ALT Alkaline Phosphatase Ammonia Lactate Dehydrogenase Total Creatine Kinase C-Reactive Protein B-Natriuretic Peptide NT-Pro-B Natriuret Pep Total Protein Albumin Vitamin B12 Folate Procalcitonin Urine Color Urine Appearance Urine pH Ur Specific [place] Urine Protein Urine Glucose (UA) Urine Ketones Urine Blood Urine Nitrite Ur Leukocyte Esterase Urine RBC Urine WBC Ur Squamous Epith Cells Urine Bacteria Hyaline Casts Granular Casts Urine Mucus Ethyl Alcohol COVID-19 (JUDITH) COVID-19 Clin Com Hep Bs Antigen Hep Bs Antibody Hep B Core Total Ab Hepatitis C Ab (EIA) 03/26/21 03/26/21 03/26/21 06:13 11:59 16:58 WBC RBC Hgb Hct MCV MCH MCHC RDW Plt Count MPV Immature Gran % (Auto) Neut % (Auto) Lymph % (Auto) [place] % (Auto) Eos % (Auto) Baso % (Auto) Lymph # (Auto) [place] # (Auto) Eos # (Auto) Baso # (Auto) Abs Immat Gran (auto) Absolute Neuts (auto) Absolute Nucleated RBC Nucleated RBC % (auto) D-Dimer Sodium Potassium Chloride Carbon Dioxide Anion Gap BUN Creatinine Estim Creat Clear Calc Estimated GFR POC Glucose 193 H 119 H 188 H Random Glucose Estimat Average Glucose Hemoglobin A1c % Lactic Acid Calcium Magnesium Total Bilirubin Direct Bilirubin AST ALT Alkaline Phosphatase Ammonia Lactate Dehydrogenase Total Creatine Kinase C-Reactive Protein B-Natriuretic Peptide NT-Pro-B Natriuret Pep Total Protein Albumin Vitamin B12 Folate Procalcitonin Urine Color Urine Appearance Urine pH Ur Specific [place] Urine Protein Urine Glucose (UA) Urine Ketones Urine Blood Urine Nitrite Ur Leukocyte Esterase Urine RBC Urine WBC Ur Squamous Epith Cells Urine Bacteria Hyaline Casts Granular Casts Urine Mucus Ethyl Alcohol COVID-19 (JUDITH) COVID-19 Clin Com Hep Bs Antigen Hep Bs Antibody Hep B Core Total Ab Hepatitis C Ab (EIA) 03/26/21 03/27/21 03/27/21 21:06 06:26 12:03 WBC RBC Hgb Hct MCV MCH MCHC RDW Plt Count MPV Immature Gran % (Auto) Neut % (Auto) Lymph % (Auto) [place] % (Auto) Eos % (Auto) Baso % (Auto) Lymph # (Auto) [place] # (Auto) Eos # (Auto) Baso # (Auto) Abs Immat Gran (auto) Absolute Neuts (auto) Absolute Nucleated RBC Nucleated RBC % (auto) D-Dimer Sodium Potassium Chloride Carbon Dioxide Anion Gap BUN Creatinine Estim Creat Clear Calc Estimated GFR POC Glucose 190 H 192 H 222 H Random Glucose Estimat Average Glucose Hemoglobin A1c % Lactic Acid Calcium Magnesium Total Bilirubin Direct Bilirubin AST ALT Alkaline Phosphatase Ammonia Lactate Dehydrogenase Total Creatine Kinase C-Reactive Protein B-Natriuretic Peptide NT-Pro-B Natriuret Pep Total Protein Albumin Vitamin B12 Folate Procalcitonin Urine Color Urine Appearance Urine pH Ur Specific [place] Urine Protein Urine Glucose (UA) Urine Ketones Urine Blood Urine Nitrite Ur Leukocyte Esterase Urine RBC Urine WBC Ur Squamous Epith Cells Urine Bacteria Hyaline Casts Granular Casts Urine Mucus Ethyl Alcohol COVID-19 (JUDITH) COVID-19 Clin Com Hep Bs Antigen Hep Bs Antibody Hep B Core Total Ab Hepatitis C Ab (EIA) 03/27/21 03/27/21 03/28/21 17:32 21:36 06:24 WBC RBC Hgb Hct MCV MCH MCHC RDW Plt Count MPV Immature Gran % (Auto) Neut % (Auto) Lymph % (Auto) [place] % (Auto) Eos % (Auto) Baso % (Auto) Lymph # (Auto) [place] # (Auto) Eos # (Auto) Baso # (Auto) Abs Immat Gran (auto) Absolute Neuts (auto) Absolute Nucleated RBC Nucleated RBC % (auto) D-Dimer Sodium Potassium Chloride Carbon Dioxide Anion Gap BUN Creatinine Estim Creat Clear Calc Estimated GFR POC Glucose 209 H 161 H 182 H Random Glucose Estimat Average Glucose Hemoglobin A1c % Lactic Acid Calcium Magnesium Total Bilirubin Direct Bilirubin AST ALT Alkaline Phosphatase Ammonia Lactate Dehydrogenase Total Creatine Kinase C-Reactive Protein B-Natriuretic Peptide NT-Pro-B Natriuret Pep Total Protein Albumin Vitamin B12 Folate Procalcitonin Urine Color Urine Appearance Urine pH Ur Specific [place] Urine Protein Urine Glucose (UA) Urine Ketones Urine Blood Urine Nitrite Ur Leukocyte Esterase Urine RBC Urine WBC Ur Squamous Epith Cells Urine Bacteria Hyaline Casts Granular Casts Urine Mucus Ethyl Alcohol COVID-19 (JUDITH) COVID-19 Clin Com Hep Bs Antigen Hep Bs Antibody Hep B Core Total Ab Hepatitis C Ab (EIA) 10/10/21 10/10/21 10/11/21 16:33 20:56 06:44 WBC RBC Hgb Hct MCV MCH MCHC RDW Plt Count MPV Immature Gran % (Auto) Neut % (Auto) Lymph % (Auto) [place] % (Auto) Eos % (Auto) Baso % (Auto) Lymph # (Auto) [place] # (Auto) Eos # (Auto) Baso # (Auto) Abs Immat Gran (auto) Absolute Neuts (auto) Absolute Nucleated RBC Nucleated RBC % (auto) D-Dimer Sodium Potassium Chloride Carbon Dioxide Anion Gap BUN Creatinine Estim Creat Clear Calc Estimated GFR POC Glucose 240 H 199 H 185 H Random Glucose Estimat Average Glucose Hemoglobin A1c % Lactic Acid Calcium Magnesium Total Bilirubin Direct Bilirubin AST ALT Alkaline Phosphatase Ammonia Lactate Dehydrogenase Total Creatine Kinase C-Reactive Protein B-Natriuretic Peptide NT-Pro-B Natriuret Pep Total Protein Albumin Vitamin B12 Folate Procalcitonin Urine Color Urine Appearance Urine pH Ur Specific [place] Urine Protein Urine Glucose (UA) Urine Ketones Urine Blood Urine Nitrite Ur Leukocyte Esterase Urine RBC Urine WBC Ur Squamous Epith Cells Urine Bacteria Hyaline Casts Granular Casts Urine Mucus Ethyl Alcohol COVID-19 (JUDITH) COVID-19 Clin Com Hep Bs Antigen Hep Bs Antibody Hep B Core Total Ab Hepatitis C Ab (EIA) 03/29/21 03/29/21 03/29/21 11:10 17:11 21:03 WBC RBC Hgb Hct MCV MCH MCHC RDW Plt Count MPV Immature Gran % (Auto) Neut % (Auto) Lymph % (Auto) [place] % (Auto) Eos % (Auto) Baso % (Auto) Lymph # (Auto) [place] # (Auto) Eos # (Auto) Baso # (Auto) Abs Immat Gran (auto) Absolute Neuts (auto) Absolute Nucleated RBC Nucleated RBC % (auto) D-Dimer Sodium Potassium Chloride Carbon Dioxide Anion Gap BUN Creatinine Estim Creat Clear Calc Estimated GFR POC Glucose 259 H 196 H 186 H Random Glucose Estimat Average Glucose Hemoglobin A1c % Lactic Acid Calcium Magnesium Total Bilirubin Direct Bilirubin AST ALT Alkaline Phosphatase Ammonia Lactate Dehydrogenase Total Creatine Kinase C-Reactive Protein B-Natriuretic Peptide NT-Pro-B Natriuret Pep Total Protein Albumin Vitamin B12 Folate Procalcitonin Urine Color Urine Appearance Urine pH Ur Specific [place] Urine Protein Urine Glucose (UA) Urine Ketones Urine Blood Urine Nitrite Ur Leukocyte Esterase Urine RBC Urine WBC Ur Squamous Epith Cells Urine Bacteria Hyaline Casts Granular Casts Urine Mucus Ethyl Alcohol COVID-19 (JUDITH) COVID-19 Clin Com Hep Bs Antigen Hep Bs Antibody Hep B Core Total Ab Hepatitis C Ab (EIA) 03/30/21 03/30/21 03/30/21 06:27 07:55 11:27 WBC RBC Hgb Hct MCV MCH MCHC RDW Plt Count MPV Immature Gran % (Auto) Neut % (Auto) Lymph % (Auto) [place] % (Auto) Eos % (Auto) Baso % (Auto) Lymph # (Auto) [place] # (Auto) Eos # (Auto) Baso # (Auto) Abs Immat Gran (auto) Absolute Neuts (auto) Absolute Nucleated RBC Nucleated RBC % (auto) D-Dimer Sodium Potassium Chloride Carbon Dioxide Anion Gap BUN Creatinine Estim Creat Clear Calc Estimated GFR POC Glucose 225 H 230 H 339 H Random Glucose Estimat Average Glucose Hemoglobin A1c % Lactic Acid Calcium Magnesium Total Bilirubin Direct Bilirubin AST ALT Alkaline Phosphatase Ammonia Lactate Dehydrogenase Total Creatine Kinase C-Reactive Protein B-Natriuretic Peptide NT-Pro-B Natriuret Pep Total Protein Albumin Vitamin B12 Folate Procalcitonin Urine Color Urine Appearance Urine pH Ur Specific [place] Urine Protein Urine Glucose (UA) Urine Ketones Urine Blood Urine Nitrite Ur Leukocyte Esterase Urine RBC Urine WBC Ur Squamous Epith Cells Urine Bacteria Hyaline Casts Granular Casts Urine Mucus Ethyl Alcohol COVID-19 (JUDITH) COVID-19 Clin Com Hep Bs Antigen Hep Bs Antibody Hep B Core Total Ab Hepatitis C Ab (EIA) 03/30/21 03/30/21 03/31/21 16:58 20:57 06:08 WBC RBC Hgb Hct MCV MCH MCHC RDW Plt Count MPV Immature Gran % (Auto) Neut % (Auto) Lymph % (Auto) [place] % (Auto) Eos % (Auto) Baso % (Auto) Lymph # (Auto) [place] # (Auto) Eos # (Auto) Baso # (Auto) Abs Immat Gran (auto) Absolute Neuts (auto) Absolute Nucleated RBC Nucleated RBC % (auto) D-Dimer Sodium Potassium Chloride Carbon Dioxide Anion Gap BUN Creatinine Estim Creat Clear Calc Estimated GFR POC Glucose 169 H 217 H 198 H Random Glucose Estimat Average Glucose Hemoglobin A1c % Lactic Acid Calcium Magnesium Total Bilirubin Direct Bilirubin AST ALT Alkaline Phosphatase Ammonia Lactate Dehydrogenase Total Creatine Kinase C-Reactive Protein B-Natriuretic Peptide NT-Pro-B Natriuret Pep Total Protein Albumin Vitamin B12 Folate Procalcitonin Urine Color Urine Appearance Urine pH Ur Specific [place] Urine Protein Urine Glucose (UA) Urine Ketones Urine Blood Urine Nitrite Ur Leukocyte Esterase Urine RBC Urine WBC Ur Squamous Epith Cells Urine Bacteria Hyaline Casts Granular Casts Urine Mucus Ethyl Alcohol COVID-19 (JUDITH) COVID-19 Clin Com Hep Bs Antigen Hep Bs Antibody Hep B Core Total Ab Hepatitis C Ab (EIA) Assessment and Plan Assessment Anesthesia Assessment: Anesthesia Plan Discussed and Chart Reviewed Final Anesthetic Review Family History of Problems with Anesthesia: No History of Problems with Anesthesia: No ASA Class: III Final Preanesthetic Review: No Changes in Pt Med Stat, Consent Obtained/Reviewed and Anes Risks/Benef Reviewed Patient Risk: Intermediate Procedure Risk: Intermediate Anesthetic Plan Anesthetic Plan: GA Disposition: Standard PACU
--- NOTE | 2021-03-31 07:28 | MHC.SHP ---
Pre-Procedural Eval Section A Date of Service: 03/31/21 The patient is an INPATIENT: Yes Changes since office visit: Yes Changes in Medication and Yes Patient answered all questions; No Cold of Flu in the past 2 weeks and No New Medical Problems The History & Physical has been completed within 30 days and I have reviewed it.: Yes Section B Chief Complaint: acute psychosis, pre ECT assessment Allergies: Allergies Allergy/AdvReac Type Severity Reaction Status Date / Time No Known Allergies Allergy Unverified 03/05/20 17:38 [No Known Allergies*] Plan I have reviewed the history and physical and performed a pertinent physical examination on my patient. No changes have occurred unless specified.
--- NOTE | 2021-03-31 07:48 | HO.ECTPROC ---
ECT Procedure Note Diagnosis/Treatment Date of Service: 03/31/21 Diagnosis: Bipolar disorder and Catatonia Previous ECT Date: 03/26/21 Current Treatment Number: 7 Treatment: Series Interval Clinical Notes: pt has been clearing full range of affect ECT Settings Device: THYMATRON DGx Electrode Placement: Bitemporal Program/Pulse Width: 0.50 Energy Percent: 100 Seizure Duration By EEG (in seconds): 63 Medications Administration General Anesthetic: Etomidate (16) Muscle Relaxant: Succinylcholine (100) Ancillary Medications Analgesics: Torodol - Pre ECT Anti-emetics: Zofran - Pre ECT Miscillaneous Medications: Propofol (40 mg post ) and Flumazenil (0.5) Airway Management Airway Management: Bag Mask Ventilation Treatment Recommendations No Changes Recommended: No change Notes: will continue outpt tx Pt Tolerated Procedure w/o Issue: Yes
[2021-03-31] MEDS: OLANZapine 5 MG TABLET PO (09:24)
[2021-03-31] MEDS: glipiZIDE 10 MG TABLET PO (09:24)
[2021-03-31] MEDS: metFORMIN HCl 1,000 MG TABLET 1000 MG PO (09:24)
[2021-03-31] MEDS: LORazepam 1 MG TABLET 2 MG PO (09:25)
[2021-03-31] MEDS: Insulin Lispro 100 UNIT/ML 3 ML VIAL SUBCUT ×2 (09:25→12:30)
[2021-03-31] MEDS: Multivitamin TABLET 1 TAB PO (09:26)
[2021-03-31] MEDS: Acetaminophen 325 MG TABLET 650 MG PO (12:10)
[2021-03-31 12:23] LABS: Glucose, Whole Blood 167 mg/dL (60-115)
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
[2021-03-31] MEDS: guaiFENesin 100 MG/5 ML LIQUID PO (13:41)
[2021-03-31 15:40] LABS: IDNOW Serial# 9DD0AD1C
[2021-03-31 15:41] LABS: COVID-19 Test Negative (Negative)
== END 2021-03-31 16:05 | disposition home or self-care (01) | DRG 753 ==
LOC: HO.ED 14:43 → HO.PM5 03-02 15:43
PROVIDERS: Family Medicine; Hospitalist; Internal Medicine; Internal Medicine Hypertension Specialist; Psychiatry & Neurology Psychiatry; Social Worker; Admitting Provider Psychiatry & Neurology Psychiatry; Emergency Provider Emergency Medicine; PCP Internal Medicine; Visit Provider Psychiatry & Neurology Psychiatry
PROC: GZB4ZZZ Other Electroconvulsive Therapy (ICD-10-PCS; CPT 90870; principal; 2021-03-15 13:00)
PROC: (CPT 90870; principal; 2021-03-24 14:10)
DX: F31.32 Bipolar disorder, current episode depressed, moderate (principal); E87.0 Hyperosmolality and hypernatremia; F06.1 Catatonic disorder due to known physiological condition; N17.9 Acute kidney failure, unspecified; M62.82 Rhabdomyolysis; J18.9 Pneumonia, unspecified organism; E87.6 Hypokalemia; R33.9 Retention of urine, unspecified; E11.9 Type 2 diabetes mellitus without complications; Z20.822 Contact with and (suspected) exposure to COVID-19; Z79.84 Long term (current) use of oral hypoglycemic drugs; Z79.899 Other long term (current) drug therapy
CPT/HCPCS: 36415; 70450; 71045; 71275; 80048; 80051; 80053; 80076; 81001; 82077; 82140; 82310; 82550; 82565; 82607; 82746; 82947; 83036; 83605; 83615; 83735; 83880; 84145; 84520; 85025; 85027; 85379; 86140; 86704; 86706; 86803; 87040; 87340; 87635; 90870; 93005; 96360; 96361; 99285; J0330; J1650; J1885; J2060; J2405; Q0163; Q9967

== ENCOUNTER 2021-04-02 08:38 | Day surgery (SDC) | payer OTHER, SELFPAY ==
[2021-04-02] VITALS (8 sets, daily range): BP systolic 117–135; BP diastolic 72–88; PULSE 78–97; RESP 16–25; TEMP 36.1–36.6; O2SAT 95–98; BMI 29.7
--- NOTE | 2021-04-02 08:40 | HO.ANESPROP2 ---
[facility] Active Problems Active Problems: All Active Problems (Updated 03/12/21 @ 15:56 by Chang Mason DO) Pre-op evaluation (Acute) Hypernatremia (Acute) Hypokalemia, inadequate intake (Acute) Preop cardiovascular exam (Acute) Rhabdomyolysis (Acute) Bipolar I disorder with catatonia (Acute) Catatonic excitement (Acute) Bipolar disorder (Acute) Type 2 diabetes mellitus (Chronic) Past Medical History Medical History Bipolar 1 disorder Depression Diabetes Family History Family history of problems with anesthesia: No Surgical History History of Problems with Anesthesia: No Social History Social History Household Members: Spouse Housing: Unknown / Unable to assess Do you presently have visiting nurse or other home services: No Unable to assess alcohol history related to: Unable to respond and Unknown Patient Tobacco Use Status: Tobacco use Unknown Advance Directives: No Advance Directives Information Provided: Yes service: No Sexual orientation: Straight/Heterosexual Meds Allergies Allergy/AdvReac Type Severity Reaction Status Date / Time No Known Allergies Allergy Unverified 03/05/20 17:38 [No Known Allergies*] Active Medications: Current Medications Lactated Ringer's (Lr) 1,000 mls @ 50 mls/hr IVCONT .Q20H [facility] Home Medications Medication Instructions Recorded Confirmed Last Taken Type multivitamin 1 tab PO DAILY 03/01/21 03/01/21 02/28/21 History Exam Exam Date and Time: April 02, 2021 0840 Airway Mallampati Class: III TM Dist: >3cm Neck ROM: Full Heart: rrr Lungs: cta Assessment and Plan Assessment Anesthesia Assessment: Anesthesia Plan Discussed and Chart Reviewed Final Anesthetic Review Family History of Problems with Anesthesia: No History of Problems with Anesthesia: No NPO: Yes ASA Class: III Final Preanesthetic Review: No Changes in Pt Med Stat, Meds/Allgs Chart Reviewed and Consent Obtained/Reviewed Patient Risk: Intermediate Procedure Risk: Intermediate Anesthetic Plan Anesthetic Plan: GA Disposition: Standard PACU
[2021-04-02 08:49] LABS: Glucose, Whole Blood 143 mg/dL (60-115)
--- NOTE | 2021-04-02 09:52 | MHC.SHP ---
Pre-Procedural Eval Section A Date of Service: 04/02/21 The patient is an INPATIENT: No Changes since office visit: Yes Patient answered all questions; No Cold of Flu in the past 2 weeks, No New Medical Problems and No Changes in Medication The History & Physical has been completed within 30 days and I have reviewed it.: Yes Section B Chief Complaint: Severe Depression Allergies: Allergies Allergy/AdvReac Type Severity Reaction Status Date / Time No Known Allergies Allergy Unverified 03/05/20 17:38 [No Known Allergies*] Plan I have reviewed the history and physical and performed a pertinent physical examination on my patient. No changes have occurred unless specified.
--- NOTE | 2021-04-02 09:53 | HO.ECTPROC ---
ECT Procedure Note Diagnosis/Treatment Date of Service: 04/02/21 Diagnosis: Catatonia Previous ECT Date: 03/31/21 Current Treatment Number: 8 Treatment: Series Interval Clinical Notes: PT PLEASANT MORE ORGANIZED LESS PARANOID ECT Settings Device: THYMATRON DGx Electrode Placement: Bitemporal Program/Pulse Width: 0.50 Energy Percent: 100 Seizure Duration By EEG (in seconds): 40 Medications Administration General Anesthetic: Etomidate (16) Muscle Relaxant: Succinylcholine (100) Ancillary Medications Anti-emetics: Zofran - Pre ECT Miscillaneous Medications: Propofol and Flumazenil Airway Management Airway Management: Bag Mask Ventilation Treatment Recommendations No Changes Recommended: No change Notes: TRY AND TRANSITION
== END 2021-04-02 10:56 | disposition home or self-care (01) ==
LOC: HO.SSS 08:38
PROVIDERS: PCP Internal Medicine; Visit Provider Psychiatry & Neurology Psychiatry
PROC: (CPT 90870; principal; 2021-04-02 09:30)
DX: F20.2 Catatonic schizophrenia (principal); F32.9 Major depressive disorder, single episode, unspecified; E11.9 Type 2 diabetes mellitus without complications; Z79.4 Long term (current) use of insulin
CPT/HCPCS: 82947; 90870; J0330; J1885; J2405

== ENCOUNTER 2021-04-19 06:03 | Day surgery (SDC) | payer OTHER, SELFPAY ==
[2021-04-19] VITALS (8 sets, daily range): BP systolic 112–143; BP diastolic 70–95; PULSE 80–94; RESP 16–20; TEMP 36.2–36.6; O2SAT 94–96; BMI 29.0
[2021-04-19 06:54] LABS: Glucose, Whole Blood 130 mg/dL (60-115)
--- NOTE | 2021-04-19 07:30 | P.CONAN_ITS ---
[facility] Active Problems Active Problems: All Active Problems (Updated 04/08/21 @ 00:03 by Dilan Avalos) Bipolar I disorder with catatonia (Acute) Catatonic excitement (Acute) Bipolar disorder (Acute) Type 2 diabetes mellitus (Chronic) Past Medical History Medical History Bipolar 1 disorder Depression Diabetes Family History Family history of problems with anesthesia: No Surgical History History of Problems with Anesthesia: No Social History Social History Household Members: Spouse Housing: Unknown / Unable to assess Do you presently have visiting nurse or other home services: No Unable to assess alcohol history related to: Unable to respond and Unknown Patient Tobacco Use Status: Tobacco use Unknown Advance Directives: No Advance Directives Information Provided: Yes service: No Sexual orientation: Straight/Heterosexual Meds Allergies Allergy/AdvReac Type Severity Reaction Status Date / Time No Known Allergies Allergy Verified 04/19/21 07:03 [No Known Allergies*] Home Medications Medication Instructions Recorded Confirmed Last Taken Type multivitamin 1 tab PO DAILY 03/01/21 03/01/21 02/28/21 History Fish Oil 04/19/21 04/19/21 Unknown History ascorbic acid (vitamin C) 500 mg 04/19/21 04/19/21 Unknown History tablet (Vitamin C) cholecalciferol (vitamin D3) 50 04/19/21 Unknown History mcg (2,000 unit) tablet (Vitamin D3) Exam Exam Date and Time: April 19, 2021 0730 Height,Weight and Vital Signs: Height 6 ft 1 in Weight 99.79 kg Last Vital Signs Temp 97.1 F 04/19/21 06:40 Pulse 88 04/19/21 06:40 Resp 16 04/19/21 06:40 BP 135/85 04/19/21 06:40 Pulse Ox 96 04/19/21 06:40 Pertinent Lab Results Pertinent Lab Results: Laboratory Tests 04/19/21 06:50 POC Glucose 130 H Airway Mallampati Class: II TM Dist: >3cm Neck ROM: Full Assessment and Plan Final Anesthetic Review Family History of Problems with Anesthesia: No History of Problems with Anesthesia: No
--- NOTE | 2021-04-19 07:30 | MHC.SHP ---
Pre-Procedural Eval Section A Date of Service: 04/19/21 The patient is an INPATIENT: No Changes since office visit: Yes Cold of Flu in the past 2 weeks, Yes New Medical Problems, Yes Changes in Medication and Yes Patient answered all questions The History & Physical has been completed within 30 days and I have reviewed it.: Yes Section B Chief Complaint: depression Details of Present Illness: The patient reported improvement of his dysphoria and there is resolution of catatonia Relevant Family History (Specify if Yes): No Relevant Social History: None Present Medications: None Medical History: No relevant PMH History of Previous Operations: No relevant previous surgery Allergies: Allergies Allergy/AdvReac Type Severity Reaction Status Date / Time No Known Allergies Allergy Verified 04/19/21 07:03 [No Known Allergies*] Review of Systems Sugical H&P ROS: Negative: Constitution, Cardiovascular, Respiratory, Neurological, Psychiatric, Hem-Onc, Allergic/Immunologic, Gastrointestinal, Genitourinary, Musculoskeletal, Integumentary, Endocrine and Eyes/Ears/Nose/Throat Exam Surgical H&P Exam: Normal: HEENT, Normal: Heart, Normal: Lungs, Normal: Extremities, Normal: Abdomen, Normal: Skin and Normal: Neurological Plan Diagnosis/Plan: Unchanged I have reviewed the history and physical and performed a pertinent physical examination on my patient. No changes have occurred unless specified.
--- NOTE | 2021-04-19 07:31 | HO.ECTPROC ---
ECT Procedure Note Diagnosis/Treatment Date of Service: 04/19/21 Diagnosis: Bipolar disorder Previous ECT Date: 04/02/21 Treatment: Maintenance Interval Clinical Notes: The patient reported improvement of mood, he was already discharged and he is doing fine. ECT Settings Device: THYMATRON DGx Electrode Placement: Bitemporal Program/Pulse Width: 0.50 Energy Percent: 100 Seizure Duration By EEG (in seconds): 35 (but on EEG trace up to 70) By Motor Observation (in seconds): 45 Medications Administration General Anesthetic: Etomidate (16) Muscle Relaxant: Succinylcholine (100) Ancillary Medications Analgesics: Torodol - Pre ECT Anti-emetics: Zofran - Pre ECT Miscillaneous Medications: Propofol Airway Management Airway Management: Bag Mask Ventilation Treatment Recommendations No Changes Recommended: No change Electrode Placement: Right Unilateral Program/Pulse Width: 0.50 Energy Percent: 80 Pt Tolerated Procedure w/o Issue: Yes
== END 2021-04-19 09:44 | disposition home or self-care (01) ==
PROVIDERS: PCP Internal Medicine; Visit Provider Psychiatry & Neurology Psychiatry
PROC: (CPT 90870; principal; 2021-04-19 12:00)
DX: F31.5 Bipolar disorder, current episode depressed, severe, with psychotic features (principal); E11.9 Type 2 diabetes mellitus without complications; Z79.84 Long term (current) use of oral hypoglycemic drugs; Z79.899 Other long term (current) drug therapy
CPT/HCPCS: 82947; 90870; J0330; J1885; J2405

== ENCOUNTER 2021-05-07 07:39 | Day surgery (SDC) | payer OTHER, SELFPAY ==
[2021-05-07] VITALS (8 sets, daily range): BP systolic 115–147; BP diastolic 79–94; PULSE 71–85; RESP 17–18; TEMP 36.4–36.7; O2SAT 94–97; BMI 29.7
--- NOTE | 2021-05-07 08:33 | MHC.SHP ---
Pre-Procedural Eval Section A Date of Service: 05/07/21 The patient is an INPATIENT: No Changes since office visit: Yes Changes in Medication and Yes Patient answered all questions; No Cold of Flu in the past 2 weeks and No New Medical Problems The History & Physical has been completed within 30 days and I have reviewed it.: Yes Section B Chief Complaint: major depressive disorder Allergies: Allergies Allergy/AdvReac Type Severity Reaction Status Date / Time No Known Allergies Allergy Verified 04/19/21 07:03 [No Known Allergies*] Plan I have reviewed the history and physical and performed a pertinent physical examination on my patient. No changes have occurred unless specified.
--- NOTE | 2021-05-07 08:34 | HO.ECTPROC ---
ECT Procedure Note Diagnosis/Treatment Date of Service: 05/07/21 Diagnosis: Catatonia Treatment: Maintenance Interval Clinical Notes: Patient has returned to work generally doing well ECT Settings Device: THYMATRON DGx Electrode Placement: Bifrontal Program/Pulse Width: 0.50 Energy Percent: 75 Seizure Duration By EEG (in seconds): 68 Medications Administration General Anesthetic: Etomidate Muscle Relaxant: Succinylcholine Ancillary Medications Miscillaneous Medications: Flumazenil Airway Management Airway Management: Bag Mask Ventilation Treatment Recommendations No Changes Recommended: No change Pt Tolerated Procedure w/o Issue: Yes
== END 2021-05-07 10:54 | disposition home or self-care (01) ==
PROVIDERS: PCP Internal Medicine; Visit Provider Psychiatry & Neurology Psychiatry
PROC: (CPT 90870; principal; 2021-05-07 09:00)
DX: F31.5 Bipolar disorder, current episode depressed, severe, with psychotic features (principal)
CPT/HCPCS: 90870; J0330; J1885; J2405

== ENCOUNTER 2021-06-04 07:18 | Day surgery (SDC) | payer OTHER, SELFPAY ==
[2021-06-04] VITALS (7 sets, daily range): BP systolic 121–137; BP diastolic 59–87; PULSE 52–99; RESP 16–21; TEMP 36.2–36.5; O2SAT 94–99; BMI 30.2
[2021-06-04 08:27] LABS: COVID-19 Test Negative (Negative)
--- NOTE | 2021-06-04 08:48 | HO.ANESPROP2 ---
[facility] Active Problems Active Problems: All Active Problems (Updated 04/08/21 @ 00:03 by Dilan Rodriguez) Bipolar I disorder with catatonia (Acute) Catatonic excitement (Acute) Bipolar disorder (Acute) Type 2 diabetes mellitus (Chronic) Past Medical History Medical History Bipolar 1 disorder Depression Diabetes Family History Family history of problems with anesthesia: No Surgical History History of Problems with Anesthesia: No Social History Social History Household Members: Spouse Housing: Unknown / Unable to assess Do you presently have visiting nurse or other home services: No Unable to assess alcohol history related to: Unable to respond and Unknown Patient Tobacco Use Status: Tobacco use Unknown Advance Directives: No Advance Directives Information Provided: Yes service: No Sexual orientation: Straight/Heterosexual Meds Allergies Allergy/AdvReac Type Severity Reaction Status Date / Time No Known Allergies Allergy Verified 04/19/21 07:03 [No Known Allergies*] Home Medications Medication Instructions Recorded Confirmed Last Taken Type multivitamin 1 tab PO DAILY 03/01/21 03/01/21 02/28/21 History Fish Oil 04/19/21 04/19/21 Unknown History ascorbic acid (vitamin C) 500 mg 04/19/21 04/19/21 Unknown History tablet (Vitamin C) cholecalciferol (vitamin D3) 50 04/19/21 Unknown History mcg (2,000 unit) tablet (Vitamin D3) Exam Exam Date and Time: June 04, 2021 0848 Height,Weight and Vital Signs: Height 6 ft 1 in Weight 103.873 kg Last Vital Signs Temp 97.1 F 06/04/21 08:35 Pulse 79 06/04/21 08:35 Resp 16 06/04/21 08:35 BP 137/87 06/04/21 08:35 Pulse Ox 97 06/04/21 08:35 Pertinent Lab Results Pertinent Lab Results: Laboratory Tests 06/04/21 07:50 COVID-19 (JUDITH) Negative COVID-19 Clin Com See Note Airway Mallampati Class: II TM Dist: >3cm Neck ROM: Full Heart: rrr Lungs: cta Assessment and Plan Assessment Anesthesia Assessment: Anesthesia Plan Discussed Final Anesthetic Review Family History of Problems with Anesthesia: No History of Problems with Anesthesia: No NPO: Yes ASA Class: III Final Preanesthetic Review: No Changes in Pt Med Stat, Meds/Allgs Chart Reviewed and Consent Obtained/Reviewed Patient Risk: Intermediate Procedure Risk: Intermediate Anesthetic Plan Anesthetic Plan: GA Disposition: Standard PACU
[2021-06-04 08:56] LABS: Glucose, Whole Blood 114 mg/dL (60-115)
--- NOTE | 2021-06-04 09:10 | MHC.SHP ---
Pre-Procedural Eval Section A Date of Service: 06/04/21 The patient is an INPATIENT: No Changes since office visit: No Cold of Flu in the past 2 weeks, No New Medical Problems and No Changes in Medication The History & Physical has been completed within 30 days and I have reviewed it.: Yes Section B Chief Complaint: depression Allergies: Allergies Allergy/AdvReac Type Severity Reaction Status Date / Time No Known Allergies Allergy Verified 04/19/21 07:03 [No Known Allergies*] Plan I have reviewed the history and physical and performed a pertinent physical examination on my patient. No changes have occurred unless specified.
--- NOTE | 2021-06-04 09:11 | HO.ECTPROC ---
ECT Procedure Note Diagnosis/Treatment Date of Service: 06/04/21 Diagnosis: Major Depressive Disorder and Catatonia Previous ECT Date: 05/07/21 Treatment: Maintenance Interval Clinical Notes: doing well ECT Settings Device: THYMATRON DGx Electrode Placement: Bifrontal Program/Pulse Width: 0.50 Energy Percent: 70 Seizure Duration By EEG (in seconds): 77 Medications Administration General Anesthetic: Etomidate (14) Muscle Relaxant: Succinylcholine (100) Ancillary Medications Analgesics: Torodol - Pre ECT Anti-emetics: Zofran - Pre ECT Airway Management Airway Management: Bag Mask Ventilation Treatment Recommendations No Changes Recommended: No change Pt Tolerated Procedure w/o Issue: Yes
== END 2021-06-04 10:35 | disposition home or self-care (01) ==
PROVIDERS: PCP Internal Medicine; Visit Provider Psychiatry & Neurology Psychiatry
PROC: (CPT 90870; principal; 2021-06-04 09:00)
DX: F33.2 Major depressive disorder, recurrent severe without psychotic features (principal); F06.1 Catatonic disorder due to known physiological condition; E11.9 Type 2 diabetes mellitus without complications; Z79.899 Other long term (current) drug therapy
CPT/HCPCS: 36415; 82947; 87635; 90870; J0330; J1885; J2405

== ENCOUNTER 2021-07-09 07:50 | Day surgery (SDC) | payer OTHER, SELFPAY ==
[2021-07-09] VITALS (7 sets, daily range): BP systolic 105–138; BP diastolic 64–80; PULSE 67–99; RESP 16–18; TEMP 36.3–36.4; O2SAT 94–98; BMI 31.2
[2021-07-09 08:26] LABS: COVID-19 Test Negative (Negative); IDNOW Serial# 55D5AD1C
--- NOTE | 2021-07-09 08:46 | HO.ANESPROP2 ---
[facility] Active Problems Active Problems: All Active Problems (Updated 04/08/21 @ 00:03 by Dilan Rodriguez) Bipolar I disorder with catatonia (Acute) Catatonic excitement (Acute) Bipolar disorder (Acute) Type 2 diabetes mellitus (Chronic) Past Medical History Medical History Bipolar 1 disorder Depression Diabetes Family History Family history of problems with anesthesia: No Surgical History History of Problems with Anesthesia: No Social History Social History Household Members: Spouse Housing: Unknown / Unable to assess Do you presently have visiting nurse or other home services: No Unable to assess alcohol history related to: Unable to respond and Unknown Patient Tobacco Use Status: Tobacco use Unknown Are you DNR?: No Advance Directives: No Advance Directives Information Provided: Yes Recently lost weight without trying: No service: No Sexual orientation: Straight/Heterosexual Meds Allergies Allergy/AdvReac Type Severity Reaction Status Date / Time No Known Allergies Allergy Verified 04/19/21 07:03 [No Known Allergies*] Home Medications Medication Instructions Recorded Confirmed Last Taken Type multivitamin 1 tab PO DAILY 03/01/21 03/01/21 02/28/21 History Fish Oil 04/19/21 04/19/21 Unknown History ascorbic acid (vitamin C) 500 mg 04/19/21 04/19/21 Unknown History tablet (Vitamin C) cholecalciferol (vitamin D3) 50 04/19/21 Unknown History mcg (2,000 unit) tablet (Vitamin D3) Exam Exam Date and Time: July 09, 2021 0846 Height,Weight and Vital Signs: Height 6 ft 1.2 in Weight 107.501 kg Last Vital Signs Temp 97.4 F 07/09/21 08:38 Pulse 72 07/09/21 08:38 Resp 17 07/09/21 08:38 BP 117/64 07/09/21 08:38 Pulse Ox 96 07/09/21 08:38 Pertinent Lab Results Pertinent Lab Results: Laboratory Tests 07/09/21 08:00 COVID-19 (JUDITH) Negative COVID-19 Clin Com See Note Airway Mallampati Class: II TM Dist: >3cm Neck ROM: Full Heart: rrr Lungs: cta bl Assessment and Plan Assessment Anesthesia Assessment: Anesthesia Plan Discussed and Chart Reviewed Final Anesthetic Review Family History of Problems with Anesthesia: No History of Problems with Anesthesia: No NPO: Yes ASA Class: III Final Preanesthetic Review: No Changes in Pt Med Stat, Meds/Allgs Chart Reviewed and Consent Obtained/Reviewed Patient Risk: Intermediate Procedure Risk: Intermediate Anesthetic Plan Anesthetic Plan: GA Disposition: Standard PACU
[2021-07-09 08:51] LABS: Glucose, Whole Blood 124 mg/dL (60-115)
--- NOTE | 2021-07-09 09:11 | MHC.SHP ---
Pre-Procedural Eval Section A Date of Service: 07/09/21 The patient is an INPATIENT: No Changes since office visit: No Cold of Flu in the past 2 weeks, No New Medical Problems, No Changes in Medication and No Patient answered all questions The History & Physical has been completed within 30 days and I have reviewed it.: Yes Section B Chief Complaint: depression Details of Present Illness: Stable at this moment Relevant Family History (Specify if Yes): No Relevant Social History: None Present Medications: see Short Stay Collaborative assessment Medical History: No relevant PMH History of Previous Operations: No relevant previous surgery Allergies: Allergies Allergy/AdvReac Type Severity Reaction Status Date / Time No Known Allergies Allergy Verified 04/19/21 07:03 [No Known Allergies*] Review of Systems Sugical H&P ROS: Negative: Constitution, Cardiovascular, Respiratory, Neurological, Psychiatric, Hem-Onc, Allergic/Immunologic, Gastrointestinal, Genitourinary, Musculoskeletal, Integumentary, Endocrine and Eyes/Ears/Nose/Throat Exam Surgical H&P Exam: Normal: HEENT, Normal: Heart, Normal: Lungs, Normal: Extremities, Normal: Abdomen, Normal: Skin and Normal: Neurological Plan Diagnosis/Plan: Unchanged I have reviewed the history and physical and performed a pertinent physical examination on my patient. No changes have occurred unless specified.
--- NOTE | 2021-07-09 09:12 | HO.ECTPROC ---
ECT Procedure Note Diagnosis/Treatment Date of Service: 07/09/21 Diagnosis: Major Depressive Disorder Previous ECT Date: 06/04/21 Treatment: Maintenance Interval Clinical Notes: The patient reported stable mood ECT Settings Device: THYMATRON DGx Electrode Placement: Bitemporal Program/Pulse Width: 0.50 Energy Percent: 70 Seizure Duration By EEG (in seconds): 83 By Motor Observation (in seconds): 41 Medications Administration General Anesthetic: Etomidate (14) Muscle Relaxant: Succinylcholine (100) Ancillary Medications Analgesics: Torodol - Pre ECT Anti-emetics: Zofran - Pre ECT Miscillaneous Medications: Propofol and Flumazenil Airway Management Airway Management: Bag Mask Ventilation Treatment Recommendations No Changes Recommended: No change Pt Tolerated Procedure w/o Issue: Yes
== END 2021-07-09 11:12 | disposition home or self-care (01) ==
PROVIDERS: Psychiatry & Neurology Psychiatry; PCP Internal Medicine; Visit Provider Psychiatry & Neurology Psychiatry
PROC: (CPT 90870; principal; 2021-07-09 09:00)
DX: F33.8 Other recurrent depressive disorders (principal); E11.9 Type 2 diabetes mellitus without complications; Z79.4 Long term (current) use of insulin; Z79.899 Other long term (current) drug therapy; Z88.8 Allergy status to other drugs, medicaments and biological substances; Z20.822 Contact with and (suspected) exposure to COVID-19
CPT/HCPCS: 82947; 87635; 90870; J0330; J1885; J2405

== ENCOUNTER → 2022-06-29 11:17 | Outpatient (BNVA) | payer BC, SELFPAY | PROVIDERS: PCP Internal Medicine; Visit Provider Psychiatry & Neurology Psychiatry | DX: F31.81 Bipolar II disorder (principal) ==

== ENCOUNTER → 2022-07-04 14:10 | Outpatient (BNVA) | payer BC, SELFPAY | PROVIDERS: PCP Internal Medicine; Visit Provider Psychiatry & Neurology Psychiatry | DX: F40.10 Social phobia, unspecified (principal) ==

== ENCOUNTER 2022-07-15 12:18 | Inpatient (IN) | payer BC, SELFPAY ==
[2022-07-15 12:21] VITALS: BP 155/84; PULSE 100; RESP 18; TEMP 36.1; O2SAT 96; BMI 29.4
--- NOTE | 2022-07-15 12:21 | ED.GENADULT ---
HPI - General Adult General Chief complaint: Psychiatric Symptoms Stated complaint: crisis Time Seen by Provider: 07/15/22 12:34 Source: patient Mode of arrival: ambulatory Limitations: no limitations History of Present Illness HPI narrative: Patient is a 51 year old assigned male at with a history of bipolar disorder presenting to the emergency department today with increased paranoia and vague SI. Patient states that he has been taking all of his medications as directed but he is having increased paranoia and vague thoughts of hurting himself. Patient denies any dizziness, lightheadedness, abdominal pain, nausea, vomiting, fever, chills, blurry vision, double vision, loss of vision, chest pain, difficulty breathing, shortness of breath, back pain, night sweats, pain with urination, increased urinary frequency, increased urinary urgency, blood in his urine or stool, syncope or a near syncopal episode, recent trauma or falls, bowel incontinence, bladder incontinence, bowel retention, bladder retention, or any other complaints at this time. Onset (ago): hour(s) Severity: mild Relieving factors: none Exacerbating factors: none Associated symptoms: denies other symptoms Treatments prior to arrival: none Related Data Home Medications Medication Instructions Recorded Confirmed multivitamin 1 tab PO DAILY 03/01/21 07/15/22 Fish Oil 04/19/21 04/19/21 ascorbic acid (vitamin C) 500 mg 04/19/21 04/19/21 tablet (Vitamin C) cholecalciferol (vitamin D3) 50 04/19/21 mcg (2,000 unit) tablet (Vitamin D3) lorazepam 1 mg tablet 1.5 mg PO TID 07/12/22 07/15/22 Previous Rx's Medication Instructions Recorded atorvastatin 20 mg tablet 20 mg PO BEDTIME 30 days #30 tabs 03/31/21 empagliflozin 10 mg tablet 10 mg PO QAM 30 days #30 tabs 03/31/21 (Jardiance) glipizide 10 mg tablet, extended 10 mg PO DAILY 30 days #30 tabs 03/31/21 release 24 hr metformin 1,000 mg tablet 1,000 mg PO BID 30 days #60 tabs 03/31/21 olanzapine 15 mg tablet 15 mg PO BEDTIME 30 days #30 tabs 07/07/22 sertraline 100 mg tablet 100 mg PO DAILY 30 days #30 tabs 07/07/22 olanzapine 2.5 mg tablet See Rx Instructions .Route 07/15/22 .COMPLEX #60 tabs Allergies Allergy/AdvReac Type Severity Reaction Status Date / Time No Known Allergies Allergy Verified 04/19/21 07:03 [No Known Allergies*] Review of Systems Constitutional: Constitutional: Reports no additional constitutional complaints, Denies chills, Denies fever(s) and Denies night sweats Eyes: Eyes: Reports no additional eye complaints, Denies blurry vision, Denies change in vision, Denies diplopia, Denies eye discharge, Denies loss of vision and Denies eye pain ENT: Denies dizziness Cardiovascular: Cardiovascular: Reports no additional cardiovascular complaints, Denies chest pain, Denies lightheadedness, Denies Loss of Consciousness and Denies dyspnea Respiratory: Respiratory: Reports no additional respiratory complaints and Denies dyspnea Gastrointestinal: Gastrointestinal: Reports no additional gastrointestinal complaints, Denies abdominal pain, Denies melena, Denies hematochezia, Denies change in bowel habits and Denies change in stool character Genitourinary: Genitourinary: Reports no additional male genitourinary complaints, Denies hematuria, Denies oliguria, Denies difficulty urinating, Denies dysuria, Denies urinary frequency, Denies urinary hesitancy, Denies urinary incontinence and Denies urinary urgency Musculoskeletal: Musculoskeletal: Reports no additional musculoskeletal complaints, Denies numbness and Denies tingling Neurologic: Denies dizziness, Denies loss of vision, Denies numbness and Denies tingling Psychiatric: Psychiatric: Reports paranoia and Reports suicidal ideation Endocrine: Endocrine: Reports no additional endocrine complaints Hematologic/Lymphatic: Hematologic/Lymphatic: Reports no additional hematologic/lymphatic complaints Allergic/Immunologic: Allergic/Immunologic: Reports no additional allergic/immunologic complaints [facility] Past Medical History Attestation statement: The following information was validated with the patient. Source: old records reviewed and nursing notes reviewed Medical History Bipolar 1 disorder Bipolar 1 disorder, mixed, full remission Depression Diabetes Hyperlipemia Inguinal hernia Sleep apnea Social anxiety disorder Social History Social History Household Members: Spouse and Children Housing: Unknown / Unable to assess Do you presently have visiting nurse or other home services: No Unable to assess alcohol history related to: Unable to respond and Unknown Patient Tobacco Use Status: Never used Tobacco Advance Directives: Yes Advance Directives Information Provided: Yes Advance Directives on File: No Healthcare Proxy: No Guardian: No service: No Sexual orientation: Straight/Heterosexual Physical Exam ED Vital Signs: Vital Signs - 24 hr 07/15/22 12:21 Temperature 97 F Pulse Rate 100 Respiratory Rate 18 Blood Pressure 155/84 H Pulse Oximetry 96 Oxygen Delivery Method Room Air BMI result Body Mass Index 29.4 Const General: cooperative, no acute distress, alert and awake Nutritional Appearance: well nourished Orientation/consciousness: patient oriented x3 Limitations: no limitations HENMT Head: Yes normal to inspection and Yes atraumatic Ears: hearing grossly normal bilaterally and external ears normal General nose exam: Normal external nose present, no nasal discharge noted and no epistaxis Face and sinus: Yes normal facial exam, No abrasion and No laceration Mouth: Normal oral and palatal mucosa present, no drooling and no muffled voice Eyes General: appearance normal, both eyes and all related structures Periorbital: periorbital findings normal Eyelids: Yes eyelids normal Conjunctivae: conjunctivae normal Pupils: Equal, round and reactive pupils present EOM: EOMs intact bilaterally Neck Neck: Yes normal visual inspection, Yes full ROM and Yes no lymphadenopathy Chest Chest palpation & inspection: normal inspection of the chest Resp Effort & Inspection: normal respiratory effort and able to speak in complete sentences Auscultation: clear to auscultation bilaterally Cardio Rate: regular rate Rhythm: regular rhythm GI Inspection: Yes normal to inspection Palpation (GI): Soft to palpation, not firm, nontender, no guarding and not rigid Neuro General: patient oriented x3 and moves all extremities Cranial nerves: Yes Equal, round and reactive pupils present Cognition (Neuro): normal cognition Motor exam (neuro): 5/5 motor strength present throughout Sensory Exam: Normal double simultaneous stimulation for sensation Coordination: [id number] test normal Extrem General: Yes normal to inspection, Yes full ROM and Yes capillary refill normal Psych Appearance: grossly normal Mental Status: mental status grossly normal Affect: normal affect Attitude: cooperative Thought process: Normal thought process present Thought content: Suicidality present Insight: Good insight present (Psych) Course Course Course Narrative: RME performed by Umm Willams PA-C. Patient is a 51 year old male with a history of Bipolar disorder. Patient states that he is having increased paranoia despite him taking his medication as prescribed. Patient states that he is having some vague thoughts of suicide but no plans and no HI. Labs ordered. Medications Administered Generic Name Dose Route Start Last Admin Trade Name Clarice PRN Reason Stop Dose Admin Lorazepam 1.5 mg 07/15/22 21:00 07/15/22 17:29 Lorazepam 0.5 Mg Tablet PO 1.5 mg TID KATEY Administration Metformin HCl 1,000 mg 07/15/22 17:00 07/15/22 17:28 Metformin Hcl 1,000 Mg Tablet PO 1,000 mg BIDWM KATEY Administration Medical Decision Making Medical Decision Making [facility] Narrative: Patient is a 51 year old assigned male at with a history of bipolar disorder presenting to the emergency department today with increased paranoia and vague SI. Patient's physical exam was unremarkable. Patient's blood work was unremarkable. I explained my physical exam findings as well as all test results to the patient. I answered all questions asked by the patient. Patient was evaluated by the CARE team who recommended inpatient psychiatric treatment. Patient verbalized agreement and understanding with this treatment plan and admission. Differential Diagnosis Differential Diagnoses: The differential diagnosis associated with the presentation includes worsening psychiatric symptoms, paranois, SI Consult Healthcare Provider Management of the patient was discussed with: Behavioral Health Provider (Recommended psychiatric admission) Lab Data [facility] Lab Attestation statement: I reviewed the patient's lab results. 07/15/22 13:43 07/15/22 13:43 Labs: Lab Results 07/15/22 07/15/22 07/15/22 Range/Units 13:22 13:43 13:43 WBC (4.8-10.8) X10*3/uL RBC (4.60-5.80) X10*6/uL Hgb (14.0-18.0) g/dl Hct (42.0-52.0) % MCV (80.0-98.0) fL MCH (27.0-33.0) pg MCHC (31.0-36.0) g/dl RDW (11.0-16.0) % Plt Count (160-400) X10*3/uL MPV (9.4-12.4) fL Immature Gran % (Auto) (0.0-0.4) % Neut % (Auto) (45-73) % Lymph % (Auto) (20-40) % Bradley % (Auto) (2-11) % Eos % (Auto) (0-4) % Baso % (Auto) (0-2) % Lymph # (Auto) (1.2-4.9) X10*3/uL Bradley # (Auto) (0.1-1.2) X10*3/uL Eos # (Auto) (0.0-0.4) X10*3/uL Baso # (Auto) (0.0-0.2) X10*3/uL Abs Immat Gran (auto) (0.00-0.03) X10*3/uL Absolute Neuts (auto) (2.0-8.3) x10*3/uL Absolute Nucleated RBC (0.0-0.012) X10*3/uL Nucleated RBC % (auto) (0.0-0.2) /100WBC Sodium 142 (135-145) mmol/L Potassium 4.0 (3.3-5.1) mmol/L Chloride 103 (96-108) mmol/L Carbon Dioxide 24 (22-29) mmol/L Anion Gap 19 (12-20) BUN 16 (9-16) mg/dL Creatinine 1.07 (0.5-1.4) mg/dL Estim Creat Clear Calc 103.2 Estimated GFR > 60 Random Glucose 138 H (60-115) mg/dL Calcium 10.3 H D (8.4-10.2) mg/dL Total Bilirubin 0.5 (0.0-1.0) mg/dL AST 33 (5-37) U/L ALT 70 H (0-40) U/L Alkaline Phosphatase 106 (39-117) U/L Total Protein 7.2 (6.5-8.0) g/dL Albumin 5.0 (3.5-5.0) g/dL Salicylates < 5.0 L (15-30) mg/dL Urine Opiates Screen (Not Detect) Urine Fentanyl Screen (Not Detect) Acetaminophen < 17 (<30) mcg/mL Ur Barbiturates Screen (Not Detect) Ur Phencyclidine Scrn (Not Detect) Ur Amphetamines Screen (Not Detect) U Benzodiazepines Scrn (Not Detect) Urine Cocaine Screen (Not Detect) U Marijuana (THC) Screen (Not Detect) Ethyl Alcohol < 10 mg/dL Influenza Type A (PCR) NEGATIVE (Negative) Influenza Type B (PCR) NEGATIVE (Negative) RSV RNA Qual (PCR) NEGATIVE (Negative) SARS-CoV-2 RNA (RT-PCR) NEGATIVE (Negative) 07/15/22 07/15/22 Range/Units 13:43 17:21 WBC 9.5 (4.8-10.8) X10*3/uL RBC 5.43 (4.60-5.80) X10*6/uL Hgb 15.1 (14.0-18.0) g/dl Hct 45.4 (42.0-52.0) % MCV 83.6 (80.0-98.0) fL MCH 27.8 (27.0-33.0) pg MCHC 33.3 (31.0-36.0) g/dl RDW 13.1 (11.0-16.0) % Plt Count 284 (160-400) X10*3/uL MPV 11.5 (9.4-12.4) fL Immature Gran % (Auto) 0.4 (0.0-0.4) % Neut % (Auto) 68.3 (45-73) % Lymph % (Auto) 23.5 (20-40) % Bradley % (Auto) 6.1 (2-11) % Eos % (Auto) 1.1 (0-4) % Baso % (Auto) 0.6 (0-2) % Lymph # (Auto) 2.2 (1.2-4.9) X10*3/uL Bradley # (Auto) 0.6 (0.1-1.2) X10*3/uL Eos # (Auto) 0.1 (0.0-0.4) X10*3/uL Baso # (Auto) 0.1 (0.0-0.2) X10*3/uL Abs Immat Gran (auto) 0.04 H (0.00-0.03) X10*3/uL Absolute Neuts (auto) 6.5 (2.0-8.3) x10*3/uL Absolute Nucleated RBC 0.000 (0.0-0.012) X10*3/uL Nucleated RBC % (auto) 0.0 (0.0-0.2) /100WBC Sodium (135-145) mmol/L Potassium (3.3-5.1) mmol/L Chloride (96-108) mmol/L Carbon Dioxide (22-29) mmol/L Anion Gap (12-20) BUN (9-16) mg/dL Creatinine (0.5-1.4) mg/dL Estim Creat Clear Calc Estimated GFR Random Glucose (60-115) mg/dL Calcium (8.4-10.2) mg/dL Total Bilirubin (0.0-1.0) mg/dL AST (5-37) U/L ALT (0-40) U/L Alkaline Phosphatase (39-117) U/L Total Protein (6.5-8.0) g/dL Albumin (3.5-5.0) g/dL Salicylates (15-30) mg/dL Urine Opiates Screen Not Detected (Not Detect) Urine Fentanyl Screen Not Detected (Not Detect) Acetaminophen (<30) mcg/mL Ur Barbiturates Screen Not Detected (Not Detect) Ur Phencyclidine Scrn Not Detected (Not Detect) Ur Amphetamines Screen Not Detected (Not Detect) U Benzodiazepines Scrn Not Detected (Not Detect) Urine Cocaine Screen Not Detected (Not Detect) U Marijuana (THC) Screen Not Detected (Not Detect) Ethyl Alcohol mg/dL Influenza Type A (PCR) (Negative) Influenza Type B (PCR) (Negative) RSV RNA Qual (PCR) (Negative) SARS-CoV-2 RNA (RT-PCR) (Negative) Critical Care Time Critical Care Time Critical Care Time: Yes Total Critical Care Time: 30 Attestation: I spent 30 minutes of Critical Care Time with this patient. This does not include time spent on separately reported billable procedures. Discharge Plan Discharge Clinical Impression: MDD (major depressive disorder) Patient Disposition: Admitted As Inpatient Interventions: [place]-Suicide Risk Severity Scale Last Done: 07/15/22 19:04 Admission Worksheet (ED) Last Done: 07/15/22 19:04 Discharge Date/Time: 07/15/22 19:05
--- OUTSIDE RECORDS SUMMARY | 2022-07-15 13:36 | XMS_ITS | Continuity of Care Document ---
:1970 Author Organization [facility] Address [address] [place] [address]- Care Team Providers Name Role Phone Gwendolyn SELF, Talat Morales Primary Care Physician Encounter [facility] Date(s): 05/30/22 - 06/29/22 [facility] [address] [place] [address]- Allergies, Adverse Reactions, Alerts No Known Allergies Immunizations Given and Recorded Vaccine Date Status Refusal Reason zoster vaccine, inactivated 05/07/22 Recorded [id number] bivalent booster vax 05/07/22 Recorde d influenza virus vaccine, inactivated 03/22/22 Recorded influenza virus vaccine, inactivated1 04/02/21 Given influenza virus vaccine, inactivated 03/11/20 Given influenza virus vaccine, inactivated 03/26/19 Given influenza virus vaccine, inactivated 03/14/18 Given influenza virus vaccine, inactivated 04/05/17 Given influenza virus vaccine, inactivated 03/29/16 Given influenza virus vaccine, inactivated 03/18/15 Given influenza virus vaccine, inactivated 03/19/14 Given influenza virus vaccine, inactivated2 03/06/13 Given SARS-CoV-2 (COVID-19) mRNA-1273 vaccine 04/15/21 Recorded SARS-CoV-2 (COVID-19) mRNA-1273 vaccine 08/10/20 Recorded SARS-CoV-2 (COVID-19) mRNA-1273 vaccine 07/13/20 Recorded tetanus/diphtheria/pertussis, acel(Tdap) 09/18/14 Given hepatitis B adult vaccine 10/22/12 Given Pneumococcal Vacc (oldterm) 05/24/12 Given Hepatitis B Vaccine (old term) 05/24/12 Given Hepatitis B Vaccine (old term) 04/24/12 Given Hepatitis A Adult Vaccine3 04/24/12 Given FluLaval (oldterm)4 02/28/12 Given Tetanus Toxoid 02/27/05 Given 1Result Comment: [facility] [place]# ON THE [address] [phone] Note: [id number] Note: [id number] Note: [facility] Medications aspirin 81 mg oral tablet 1 tablet = 81 mg, By Mouth, Daily, # 30 tablet, 0 Refills, Maintenance, 12/04/13 8:53:04, Tablet Start Date: 12/04/13 Status: Orderedatorvastatin 20 mg oral tablet 1 tablet, By Mouth, Daily, # 30 tablet, 5 Refills, 05/30/22 7:04:00 EST, [facility]/pharmacy #[id number], 184, cm, 05/02/22 12:45:00 EST, Height Start Date: 05/30/22 Status: OrderedDurable Medical Equipment ASV EPAP 8, mn PS 3, max PS 10, Maintenance, Reliable Respiratory FFM, 04/29/18 14:02:53 EST, Compound Start Date: 04/29/18 Status: OrderedFish Oil 1200 mg oral capsule 1 capsule = 1,200 mg, By Mouth, 2 times a day, 0 Refills, Maintenance, 09/01/17 15:01:15 Start Date: 09/01/17 Status: OrderedFreestyle Lite Lancets See Instructions, # 200 each, Refills 5, Tot. Refills 5, Maintenance, use as directed for Type II Diabetes Mellitus, 250.00 TEST UP TO 3 TIMES DAILY, 09/18/14 8:14:15, Compound Start Date: 09/18/14 Stop Date: 03/17/15 Status: OrderedFreestyle Lite Monitor See Instructions, # 1 each, Maintenance, Please check blood sugars as directed for new onset Diabetes Type II, 250.00, 11/29/13 16:56:15, Compound Start Date: 11/29/13 Status: OrderedFreestyle Lite Test Strips See Instructions, # 100 each, Refills 11, Tot. Refills 11, Maintenance, TEST BS BID E11.9, 06/22/17 13:00:37, Compound Start Date: 06/22/17 Stop Date: 07/22/17 Status: OrderedglipiZIDE 10 mg oral tablet, extended release 1 tablet, By Mouth, Daily, # 30 tablet, 5 Refills, Maintenance, 04/30/22 6:49:00 EST, [facility]/pharmacy #[id number], 184, cm, 03/02/22 8:05:00 EDT, Height Start Date: 04/30/22 Status: OrderedJardiance 10 mg oral tablet 1 tablet, By Mouth, Daily in AM, # 90 tablet, 1 Refills, [id number], 184, cm, 10/06/21 14:11:00EDT, Height Start Date: 12/21/21 Status: OrderedLORazepam 0.5 mg oral tablet 1 tablet = 0.5 mg, By Mouth, Daily, 0 Refills, Maintenance, 03/11/20 13:03:00 EDT, Tablet Start Date: 03/11/20 Status: OrderedmetFORMIN 1000 mg oral tablet 1 tablet, By Mouth, 2 times a day, # 60 tablet, 5 Refills, Maintenance, 04/30/22 6:50:00 EST, [facility]/pharmacy #[id number], 184, cm, 03/02/22 8:05:00 EDT, Height Start Date: 04/30/22 Status: OrderedMultivitamin Daily, 0 Refills, Maintenance, 09/01/17 15:01:51 Start Date: 09/01/17 Status: Orderedsertraline 50 mg oral tablet 1 tablet = 50 mg, By Mouth, Daily, # 30 tablet, 0 Refills, Maintenance, 07/07/21 8:36:00 EST, Tablet, Partial fill upon patient request if the prescription is for a schedule II opioid drug. Start Date: 07/07/21 Status: OrderedVitamin D3 oral tablet = 4,000 units, By Mouth, Daily, 0 Refills, Maintenance, 09/01/17 15:01:06 Start Date: 09/01/17 Status: OrderedZyPREXA 15 mg oral tablet 0.5 tablet = 7.5 mg, By Mouth, Daily, # 90 tablet, 0 Refills, Maintenance, 04/02/21 13:36:00 EDT, Tablet, Partial fill upon patient request if the prescription is for a schedule II opioid drug. Start Date: 04/02/21 Status: Ordered Problem List Condition Confirmation Course Effective Status Health Informa nt Dates Status Abnormal liver function Confirmed Active tests1 Affective disorder, Confirmed Active psychotic Anemia Confirmed Active Anxiety Confirmed Active Bipolar disorder Confirmed Active Obesity (BMI 30-39.9) Confirmed Active CSA (central sleep apnea) Confirmed Active Diastolic dysfunction Confirmed Active Abnormal EKG2 Confirmed Active Extrapyramidal disorder3 Confirmed Active Family history of colon Confirmed Active cancer in father History of psychosis Confirmed Active Hypercholesterolemia Confirmed Active Colon polyp, hyperplastic Confirmed 10/08/21 Active IBS (irritable bowel Confirmed Active syndrome) Obese class I Confirmed Active Obstructive sleep apnea Confirmed Active Prostatitis4 Confirmed Active Prostatitis, chronic Confirmed Active Depression, major, Confirmed Active recurrent, in partial remission Snoring Confirmed Active Diabetes mellitus type 2, Confirmed Active uncontrolled, without complications 1lft w/u negative 2011, u/s abdomen fatty [id number] EKG 2016 done secondary to psychiatric admission. Echocardiogram without significant structu ral heart disease. Exercise stress test negative for reversible ischemia.3 secondary to [id number] with occasional prostatitis. Patient sees Dr. Suarez urology. Social History Social History Type Response Smoking Status Never smoker entered on: 09/18/14 Sex Patient Care team information Care Team PersonnelName: Gwendolyn SELF, Talat Morales Position: [facility] Primary Care Physician Member Role: PCP Address: Address: [address] [place] [id number]- Care Team Related PersonsName: CARIN HONG Address: home [address] [place] [address]
[2022-07-15 13:47] LABS: MANUAL DIFF FLAG NO
[2022-07-15 13:49] LABS: Basophils Absolute Auto 0.1 X10*3/uL (0.0-0.2); Basophils Percent Auto 0.6 % (0-2); Eosinophils Absolute Auto 0.1 X10*3/uL (0.0-0.4); Eosinophils Percent Auto 1.1 % (0-4); Hematocrit 45.4 % (42.0-52.0); Hemoglobin 15.1 g/dl (14.0-18.0); Imm Gran Abs Auto 0.04 X10*3/uL (0.00-0.03); Imm Gran Pct Auto 0.4 % (0.0-0.4); Lymphocytes Absolute Auto 2.2 X10*3/uL (1.2-4.9); Lymphocytes Percent Auto 23.5 % (20-40); Mean Corpuscular HGB Conc 33.3 g/dl (31.0-36.0); Mean Corpuscular Hemoglobin 27.8 pg (27.0-33.0); Mean Corpuscular Volume 83.6 fL (80.0-98.0); Mean Platelet Volume 11.5 fL (9.4-12.4); Monocytes Absolute Auto 0.6 X10*3/uL (0.1-1.2); Monocytes Percent Auto 6.1 % (2-11); Neutrophils Absolute Auto 6.5 x10*3/uL (2.0-8.3); Neutrophils Percent Auto 68.3 % (45-73); Platelet Count 284 X10*3/uL (160-400); Red Blood Count 5.43 X10*6/uL (4.60-5.80); Red Cell Distribution Width 13.1 % (11.0-16.0); White Blood Count 9.5 X10*3/uL (4.8-10.8)
[2022-07-15 14:06] LABS: Influenza A PCR NEGATIVE (Negative); Influenza B PCR NEGATIVE (Negative); Resp Syncy Virus RNA Qual PCR NEGATIVE (Negative); SARS COV2 PCR INHOUSE NEGATIVE (Negative)
[2022-07-15 14:06] LABS: Acetaminophen LAB < 17 mcg/mL (<30); Alanine Aminotransferase 70 U/L (0-40); Alkaline Phosphatase 106 U/L (39-117); Anion Gap 19 (12-20); Aspartate Amino Transferase 33 U/L (5-37); Bilirubin Total 0.5 mg/dL (0.0-1.0); Blood Urea Nitrogen 16 mg/dL (9-16); Calcium 10.3 mg/dL (8.4-10.2); Carbon Dioxide 24 mmol/L (22-29); Chloride 103 mmol/L (96-108); Creatinine Clr Calc Pharmacy 103.2; Estimated Glomerular Filt Rate > 60; Ethanol < 10 mg/dL; Glucose Random 138 mg/dL (60-115); Salicylate < 5.0 mg/dL (15-30); Sodium 142 mmol/L (135-145); Total Protein 7.2 g/dL (6.5-8.0)
[2022-07-15] MEDS: metFORMIN HCl 1,000 MG TABLET 1000 MG PO (17:28)
[2022-07-15] MEDS: LORazepam 0.5 MG TABLET 1.5 MG PO (17:29)
[2022-07-15 17:43] LABS: Amphetamine Screen Urine Not Detected (Not Detect); Barbiturates, Urine Not Detected (Not Detect); Benzodiazepines Screen Urine Not Detected (Not Detect); Cannabinoid Screen Urine Not Detected (Not Detect); Cocaine Screen Urine Not Detected (Not Detect); Fentanyl, urine Not Detected (Not Detect); Opiate Screen Urine Not Detected (Not Detect); Phencyclidine Screen Urine Not Detected (Not Detect)
--- NOTE | 2022-07-15 18:08 | PC.NURSE ---
RN to RN report given to Raghav KUHN. Admitting to [facility]. Pt is calm/cooperative, mother is at bedside. Pt recently medicated with Ativan 1.5mg PO and Metformin 1,000mg. Awaiting transport/staff to escort to [facility].
[2022-07-15 19:34] VITALS: BMI 30.3
[2022-07-15 19:41] VITALS: BP 145/86; PULSE 85; RESP 16; TEMP 36.2; O2SAT 96
--- NOTE | 2022-07-15 19:51 | PC.ADMIT ---
Pt is a 51years old male admitted on CV for vague SI. Pt is alert and oriented x3. VSS, Covid negative, Tox screen negative. Pt presents as calm and cooperative, incoherent at times. Few episodes of thought blocking. Pt appears disheveled. Refused to complete meal menu for tomorrow. Insight, judgment and eye contact poor. Continues to verbalize, I don't know what is going on here. Pt endorses depression and anxiety, denies SI/HI/AH/VH. Pt response is delayed, speech is slow with soft tone. Pt stands the risk of decompensation. Pt seems confused and keeps saying, I don't know why i am here . Admission orders obtained.
[2022-07-15] MEDS: traZODone HCL 50 MG TABLET PO (20:16)
[2022-07-15] MEDS: OLANZapine 7.5 MG TABLET 15 MG PO (20:16)
[2022-07-15] MEDS: Atorvastatin Calcium 20 MG TABLET PO (20:16)
[2022-07-16 06:00] VITALS: BP 146/80; PULSE 88; RESP 18; TEMP 36.6; O2SAT 97
[2022-07-16 08:48] LABS: Alanine Aminotransferase 69 U/L (0-40); Albumin Level 4.9 g/dL (3.5-5.0); Alkaline Phosphatase 122 U/L (39-117); Anion Gap 16 (12-20); Aspartate Amino Transferase 32 U/L (5-37); Bilirubin Total 0.6 mg/dL (0.0-1.0); Blood Urea Nitrogen 17 mg/dL (9-16); Calcium 10.3 mg/dL (8.4-10.2); Carbon Dioxide 26 mmol/L (22-29); Chloride 104 mmol/L (96-108); Cholesterol 117 mg/dL; Creatinine Clr Calc Pharmacy 113.2; Estimated Glomerular Filt Rate > 60; Glucose Fasting 129 mg/dL (60-99); HDL Cholesterol 49 mg/dL; LDL Cholesterol Calculated 55 mg/dl; Potassium 4.2 mmol/L (3.3-5.1); Sodium 142 mmol/L (135-145); Total Protein 7.3 g/dL (6.5-8.0); Triglycerides 67 mg/dL
[2022-07-16] MEDS: LORazepam 0.5 MG TABLET 1.5 MG PO ×3 (09:03→21:38)
[2022-07-16] MEDS: metFORMIN HCl 1,000 MG TABLET 1000 MG PO ×2 (09:03→18:34)
[2022-07-16] MEDS: Multivitamin TABLET 1 TAB PO (09:03)
[2022-07-16] MEDS: glipiZIDE XL 10 MG TAB.ER.24 PO (09:03)
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
[2022-07-16] MEDS: OLANZapine 2.5 MG TABLET PO (18:47)
[2022-07-16 19:15] VITALS: BP 147/85; PULSE 83; TEMP 36.3; O2SAT 94
[2022-07-16] MEDS: Atorvastatin Calcium 20 MG TABLET PO (21:40)
[2022-07-16] MEDS: OLANZapine 7.5 MG TABLET 15 MG PO (21:40)
[2022-07-16 21:55] LABS: Glucose, Whole Blood 102 mg/dL (60-115)
[2022-07-17 08:15] VITALS: BP 126/82; PULSE 104; RESP 18; TEMP 36.7; O2SAT 95
[2022-07-17 08:24] LABS: Glucose, Whole Blood 137 mg/dL (60-115)
[2022-07-17] MEDS: LORazepam 0.5 MG TABLET 1.5 MG PO ×3 (08:27→20:53)
[2022-07-17] MEDS: Multivitamin TABLET 1 TAB PO (08:27)
[2022-07-17] MEDS: glipiZIDE XL 10 MG TAB.ER.24 PO (08:27)
[2022-07-17] MEDS: metFORMIN HCl 1,000 MG TABLET 1000 MG PO ×2 (08:27→17:27)
--- NOTE | 2022-07-17 10:45 | PC.NURSE ---
1 sided photo copy of Health Care Proxy form was dropped of and filed in pt chart. Social work notified.
[2022-07-17] MEDS: Milk of Magnesia 30 ML ORAL.SUSP PO (11:30)
[2022-07-17] MEDS: OLANZapine 2.5 MG TABLET PO (13:04)
[2022-07-17] MEDS: hydrOXYzine HCL 25 MG TABLET PO (13:04)
[2022-07-17 13:14] LABS: Glucose, Whole Blood 75 mg/dL (60-115)
--- NOTE | 2022-07-17 13:14 | PC.NURSE ---
At 1300 patient appraoched the nurses station c/o panic attack. He was fully oriented and showed no outward signs of anxiety. He had told PC that the visit with his mother had been a trigger. He reported nausea and difficulty eating lunch. I checked his RBS which was 75. Pt states that is a very low sugar for him and thought some of what he was experiencing might be due to hypoglycemia. Pt took 4 oz cranberry juice and prns of zyprexa and hydroxyzine at 1310. At 1330 he was noted to have eaten his burger and was sleeping in his bed.
--- NOTE | 2022-07-17 13:50 | P.PNPSI_ITS ---
Subjective Subjective Date of Service: 07/17/22 Reason For Visit: SI Interim History: Patient seen and discussed. He feels increasingly depressed. He has utilized PRN Zyprexa and continues on Ativan. He reports feeling panic. He continues ambivalent, indecisive and hesitant when asked about symptoms. Thought process is slowed and appears preoccupied. He is alert and oriented. He is becoming more convinced about needing ECT. When told Dr. Rosado is away but Dr. Torre is an ECT psychiatrist, patient was anxious and started saying he is feeling hopeless. Continues with SI without a plan while in the hospital. Medication Compliance: Yes Review of Systems Constitutional: Reports no additional constitutional complaints, Denies chills, Denies fever(s) and Denies night sweats Eyes: Reports no additional eye complaints, Denies blurry vision, Denies change in vision, Denies diplopia, Denies eye discharge, Denies loss of vision and Denies eye pain Denies dizziness Cardiovascular: Reports no additional cardiovascular complaints, Denies chest pain, Denies lightheadedness, Denies Loss of Consciousness and Denies dyspnea Respiratory: Reports no additional respiratory complaints and Denies dyspnea Gastrointestinal: Reports no additional gastrointestinal complaints, Denies abdominal pain, Denies melena, Denies hematochezia, Denies change in bowel habits and Denies change in stool character Genitourinary: Reports no additional male genitourinary complaints, Denies hematuria, Denies oliguria, Denies difficulty urinating, Denies dysuria, Denies urinary frequency, Denies urinary hesitancy, Denies urinary incontinence and Denies urinary urgency Musculoskeletal: Reports no additional musculoskeletal complaints, Denies numbness and Denies tingling Denies dizziness, Denies loss of vision, Denies numbness and Denies tingling Psychiatric: Reports paranoia and Reports suicidal ideation Endocrine: Reports no additional endocrine complaints Hematologic/Lymphatic: Reports no additional hematologic/lymphatic complaints Allergic/Immunologic: Reports no additional allergic/immunologic complaints Mental Status Exam Mental Status Exam Narrative: Well-developed, well-nourished male, NAD.? Appropriately dressed.? Ambulation slowed, posture laying in bed.? No tics or tremors, no abnormal movements.? No SI/HI, no AH/VH.? Paranoia per patient report. Patient Appearance: hospital attire Patient Orientation: Person, Place, Time and Situation Level of Consciousness: Appropriate and Alert Patient Behavior: Appropriate, Cooperative, Anxious and Good Eye Contact. Slowed responses. Preoccupied Mood Description: Depressed and Anxious Affect Description: Depressed and Anxious Patient Cognition Impaired: poor concentration. Ambivalence. Hesitency answering questions. Ability to Follow Directions: Good Speech Pattern: Clear, Appropriate and Soft-Spoken. Latent. Memory Description: Episodic Impaired Hallucinations: None Delusions: Paranoid Ideation (Believes people are talking about him.) Thought Process: Rumination Thought Content: positive for Obsessional Thoughts Depressive Symptoms: Increased Anxiety, Insomnia, Difficulty Sleeping, Loss of Int. in Activity, Feelings of Worthlessness, Hopelessness, Isolating- Friends/Family, Increased Fatigue, Low Self Esteem, Loss of Energy and Difficulty Concentrating Judgement: Fair Diagnostics Vital Signs (24Hr): Vital Signs - 24 hr 07/17/22 08:15 07/17/22 17:00 Temperature 98.1 F 95.9 F L Pulse Rate 104 H 108 H Respiratory Rate 18 Blood Pressure 126/82 128/82 Pulse Oximetry 95 94 Oxygen Delivery Method Room Air Room Air BMI result Body Mass Index 30.3 Labs 07/15/22 13:43 07/16/22 07:51 Labs: Laboratory Results - last 48 hr 07/16/22 07/16/22 07/17/22 07:51 21:50 08:17 Sodium 142 Potassium 4.2 Chloride 104 Carbon Dioxide 26 Anion Gap 16 BUN 17 H Creatinine 0.99 Estim Creat Clear Calc 113.2 Estimated GFR > 60 POC Glucose 102 137 H Fasting Glucose 129 H Calcium 10.3 H Total Bilirubin 0.6 AST 32 ALT 69 H Alkaline Phosphatase 122 H Total Protein 7.3 Albumin 4.9 Triglycerides 67 Cholesterol 117 LDL Cholesterol, Calc 55 HDL Cholesterol 49 07/17/22 07/17/22 13:07 20:48 Sodium Potassium Chloride Carbon Dioxide Anion Gap BUN Creatinine Estim Creat Clear Calc Estimated GFR POC Glucose 75 116 H Fasting Glucose Calcium Total Bilirubin AST ALT Alkaline Phosphatase Total Protein Albumin Triglycerides Cholesterol LDL Cholesterol, Calc HDL Cholesterol Medications Medications Current Medications Acetaminophen (Acetaminophen 325 Mg Tablet) 650 mg PO Q6H PRN PRN Reason: Headache/Pain Mild Scale (1-3) Al Hydroxide/Mg Hydroxide (Magnesium Hydrox/Alum Hydrox 30 Ml Oral.Susp) 30 ml PO Q6H PRN PRN Reason: Heartburn/Nausea Atorvastatin Calcium (Atorvastatin Calcium 20 Mg Tablet) 20 mg PO BEDTIME [facility] Last Admin: 07/17/22 20:54 Dose: 20 mg Glipizide (Glipizide Xl 10 Mg Tab.Er.24) 10 mg PO DAILY [facility] Last Admin: 07/17/22 08:27 Dose: 10 mg Hydroxyzine HCl (Hydroxyzine Hcl 25 Mg Tablet) 25 mg PO Q6H PRN PRN Reason: Anxiety Last Admin: 07/17/22 13:04 Dose: 25 mg Lorazepam (Lorazepam 0.5 Mg Tablet) 1.5 mg PO TID [facility] Last Admin: 07/17/22 20:53 Dose: 1.5 mg Magnesium Hydroxide (Milk Of Magnesia 30 Ml Oral.Susp) 30 ml PO DAILY PRN PRN Reason: Constipation Last Admin: 07/17/22 11:30 Dose: 30 ml Metformin HCl (Metformin Hcl 1,000 Mg Tablet) 1,000 mg PO BIDWM [facility] Last Admin: 07/17/22 17:27 Dose: 1,000 mg Multivitamins/Vitamin C (Multivitamin Tablet) 1 tab PO DAILY [facility] Last Admin: 07/17/22 08:27 Dose: 1 tab Olanzapine (Olanzapine 7.5 Mg Tablet) 15 mg PO BEDTIME [facility] Last Admin: 07/17/22 20:54 Dose: 15 mg Olanzapine (Olanzapine 2.5 Mg Tablet) 2.5 mg PO TID PRN PRN Reason: psychosis and severe anxiety Last Admin: 07/17/22 13:04 Dose: 2.5 mg Trazodone HCl (Trazodone Hcl 50 Mg Tablet) 50 mg PO BEDTIME PRN PRN Reason: Insomnia Last Admin: 07/15/22 20:16 Dose: 50 mg Allergies Allergies Allergy/AdvReac Type Severity Reaction Status Date / Time No Known Allergies Allergy Verified 04/19/21 07:03 [No Known Allergies*] Assessment & Plan Assessment & Plan (1) Bipolar affective, depress, sev w/ psych: Status: Acute Code(s): F31.5 - Bipolar disorder, current episode depressed, severe, with psychotic features Assessment and Plan: Patient presents to from [facility] after attending for a few days of [facility] with continuing worsening of symptoms.? ? He has been experiencing increased symptoms of depression and anxiety.? Precipitant is divorce, as well as plan to sell his house and moved to [place] to live with his mother.? He has also been experiencing paranoia, thinking that others are talking about him. He denies any thought of harm to himself or others, no safety concerns at this time.? He does have a significant history of catatonia, with several hospitalizations.? He has had ECT in the past.? He states that his memory has not fully returned since ECT last year although seems to have responded in terms of his catatonia and depression. He appeared reticent, overwhelmed during interview.? He has recently had medication changes, including increase in olanzapine, sertraline, lorazepam doses.? Plan - Admit to [facility]. CV accepted - 15 minute checks. - Continue current medications. - Encourage PO intake. Monitor for worsening mental state and development of catatonia. - Encourage group and milieu treatment. - ?ECT - Collaterals - Disposition planning. 07/17: Continue tx plan. Consider restarting ECT per primary team. Reason for contiued inpatient stay Substantial Risk for: harm to self, inability to function, rapid decompensation and med/psych decompensation Time Spent With Patient Time: Total time managing care of this patient today ____ minutes.
[2022-07-17 17:00] VITALS: BP 128/82; PULSE 108; TEMP 35.5; O2SAT 94
[2022-07-17 20:53] LABS: Glucose, Whole Blood 116 mg/dL (60-115)
[2022-07-17] MEDS: OLANZapine 7.5 MG TABLET 15 MG PO (20:54)
[2022-07-17] MEDS: Atorvastatin Calcium 20 MG TABLET PO (20:54)
[2022-07-18 08:40] LABS: Glucose, Whole Blood 131 mg/dL (60-115)
[2022-07-18 09:07] VITALS: BP 130/79; PULSE 114; RESP 16; TEMP 36.4; O2SAT 96
[2022-07-18] MEDS: LORazepam 0.5 MG TABLET 1.5 MG PO ×3 (09:08→20:25)
[2022-07-18] MEDS: Multivitamin TABLET 1 TAB PO (09:09)
[2022-07-18] MEDS: glipiZIDE XL 10 MG TAB.ER.24 PO (09:09)
[2022-07-18] MEDS: metFORMIN HCl 1,000 MG TABLET 1000 MG PO (09:09)
--- NOTE | 2022-07-18 09:42 | HO.PSYCHPN ---
Subjective Subjective Date of Service: 07/18/22 Reason For Visit: SI Interim History: Met with patient; case discussed and teams; reviewed weekend notes by covering provider; reviewed past notes from prior admission Patient said that the reason he came to the hospital initially was while at [facility] he started feeling suicidal. He says I do not feel that way anymore. Patient however has paranoid thoughts and several times throughout the discussions says my whole life people have been trying to set me up to get me to fail; he lists his family, Dr. Rosado and his psychologist as some of these people. When reality testing attempted patient respond well and agrees it does not make sense that people like Dr. Rosado would be trying to set him up to fail. He feels that the paranoid he is having it has gotten a little better since his Zyprexa was increased from 7.5 mg to 15 mg some time around last week. However he says I cannot stop fixating...that i'm doing the wrong thing... New that my whole life people have been setting me up to fail... Patient agrees to further increase in Zyprexa and also restarting Zoloft which was recently increased as well. Patient denies any SI; he denies AVH. He says that he and his are still close and that she should remain his healthcare proxy. Also discussed ECT and patient said it did help last time. Patient agrees that if he does not respond to medication that ECT is an option Mental Status Exam Mental Status Exam Narrative: Patient Appearance:?Appropriate; hospital attire, glasses; unkempt hair but adequate hygiene. Patient Orientation:?Person, Place and Situation Level of Consciousness:?Awake Patient Behavior: calm, cooperative, but also somewhat suspicious Mood Description:?anxious Affect Description:? congruent Ability to Follow Directions:?fair Speech Pattern: normal rate, prosody, volume Delusions:?paranoid delusions Thought Process: can be?goal oriented and logical, but still perseverative Thought Content:?on paranoid delusions Judgment:?impaired Diagnostics Vital Signs (24Hr): Vital Signs - 24 hr 07/17/22 17:00 07/18/22 09:07 Temperature 95.9 F L 97.6 F Pulse Rate 108 H 114 H Respiratory Rate 16 Blood Pressure 128/82 130/79 Pulse Oximetry 94 96 Oxygen Delivery Method Room Air Room Air BMI result Body Mass Index 30.3 Labs 07/15/22 13:43 07/16/22 07:51 Labs: Laboratory Results - last 48 hr 07/16/22 07/17/22 07/17/22 21:50 08:17 13:07 POC Glucose 102 137 H 75 07/17/22 07/18/22 20:48 08:30 POC Glucose 116 H 131 H Medications Medications Current Medications Acetaminophen (Acetaminophen 325 Mg Tablet) 650 mg PO Q6H PRN PRN Reason: Headache/Pain Mild Scale (1-3) Al Hydroxide/Mg Hydroxide (Magnesium Hydrox/Alum Hydrox 30 Ml Oral.Susp) 30 ml PO Q6H PRN PRN Reason: Heartburn/Nausea Atorvastatin Calcium (Atorvastatin Calcium 20 Mg Tablet) 20 mg PO BEDTIME [facility] Last Admin: 07/17/22 20:54 Dose: 20 mg Glipizide (Glipizide Xl 10 Mg Tab.Er.24) 10 mg PO DAILY [facility] Last Admin: 07/18/22 09:09 Dose: 10 mg Hydroxyzine HCl (Hydroxyzine Hcl 25 Mg Tablet) 25 mg PO Q6H PRN PRN Reason: Anxiety Last Admin: 07/17/22 13:04 Dose: 25 mg Lorazepam (Lorazepam 0.5 Mg Tablet) 1.5 mg PO TID [facility] Last Admin: 07/18/22 09:08 Dose: 1.5 mg Magnesium Hydroxide (Milk Of Magnesia 30 Ml Oral.Susp) 30 ml PO DAILY PRN PRN Reason: Constipation Last Admin: 07/17/22 11:30 Dose: 30 ml Metformin HCl (Metformin Hcl 1,000 Mg Tablet) 1,000 mg PO BIDWM [facility] Last Admin: 07/18/22 09:09 Dose: 1,000 mg Multivitamins/Vitamin C (Multivitamin Tablet) 1 tab PO DAILY [facility] Last Admin: 07/18/22 09:09 Dose: 1 tab Olanzapine (Olanzapine 7.5 Mg Tablet) 15 mg PO BEDTIME [facility] Last Admin: 07/17/22 20:54 Dose: 15 mg Olanzapine (Olanzapine 2.5 Mg Tablet) 2.5 mg PO TID PRN PRN Reason: psychosis and severe anxiety Last Admin: 07/17/22 13:04 Dose: 2.5 mg Trazodone HCl (Trazodone Hcl 50 Mg Tablet) 50 mg PO BEDTIME PRN PRN Reason: Insomnia Last Admin: 07/15/22 20:16 Dose: 50 mg Allergies Allergies Allergy/AdvReac Type Severity Reaction Status Date / Time No Known Allergies Allergy Verified 04/19/21 07:03 [No Known Allergies*] Assessment & Plan Assessment & Plan (1) Bipolar affective, depress, sev w/ psych: Status: Acute Code(s): F31.5 - Bipolar disorder, current episode depressed, severe, with psychotic features Assessment and Plan: Patient presents to from [facility] after attending for a few days of [facility] with continuing worsening of symptoms.? ? He has been experiencing increased symptoms of depression and anxiety.? Precipitant is divorce, as well as plan to sell his house and moved to [facility] to live with his mother.? He has also been experiencing paranoia, thinking that others are talking about him. He denies any thought of harm to himself or others, no safety concerns at this time.? He does have a significant history of catatonia, with several hospitalizations.? He has had ECT in the past.? He states that his memory has not fully returned since ECT last year although seems to have responded in terms of his catatonia and depression. He appeared reticent, overwhelmed during interview.? He has recently had medication changes, including increase in olanzapine, sertraline, lorazepam doses.? Plan Patient is a 51-year-old male with history of bipolar disorder, bouts of catatonia who presents from [facility] for worsening symptoms of depression and paranoia. 07/18/2022 patient is paranoid but with some insight; patient agrees to increasing Zyprexa; Zoloft was not restarted on admission but since patient has been on it with her recent increase will titrate again. Plan CV accepted Q 15 minute checks. Continue Zyprexa 15 mg q.h.s. Increase Zyprexa to 5 mg daily Restart Zoloft at 50 mg; last week patient was titrated to 150 mg so will restart this time. Continue Ativan 1.5 mg t.i.d. - Encourage PO intake. Monitor for worsening mental state and development of catatonia. - Encourage group and milieu treatment. - consider ECT - Collaterals - Disposition planning. is HCP Patient educated on: diagnosis, medication risk/benefits, ECT and therapeutic strategies Informed Consent: understands, does not understand and further education needed Reason for contiued inpatient stay Substantial Risk for: inability to function Time Spent With Patient Time: Total time managing care of this patient today ____ minutes.
[2022-07-18] MEDS: Sertraline HCL 25 MG TABLET PO (13:21)
[2022-07-18] MEDS: OLANZapine 5 MG TABLET PO (13:21)
[2022-07-18 18:00] VITALS: BP 138/82; PULSE 110; RESP 14; TEMP 36.6
[2022-07-18] MEDS: OLANZapine 2.5 MG TABLET PO (19:11)
[2022-07-18] MEDS: traZODone HCL 50 MG TABLET PO (20:25)
[2022-07-18] MEDS: Atorvastatin Calcium 20 MG TABLET PO (20:25)
[2022-07-18] MEDS: OLANZapine 7.5 MG TABLET 15 MG PO (20:25)
[2022-07-18 20:52] LABS: Glucose, Whole Blood 128 mg/dL (60-115)
--- NOTE | 2022-07-18 22:20 | PC.NURSE ---
PT signed a 3 day notice today, 07/18/2022.
--- NOTE | 2022-07-19 | ECG_ITS ---
Test Reason : pre ect Blood Pressure : / mmHG Vent. Rate : 096 BPM Atrial Rate : 096 BPM P-R Int : 170 ms QRS Dur : 086 ms QT Int : 314 ms P-R-T Axes : 047 056 022 degrees QTc Int : 396 ms Normal sinus rhythm Nonspecific T wave changes Abnormal ECG When compared with ECG of 07-MAR-2021 20:30, No significant changes seen Referred By: Fredo Prieto Electronically Signed By:Ajay Duran
[2022-07-19 08:12] LABS: Glucose, Whole Blood 136 mg/dL (60-115)
[2022-07-19 08:15] VITALS: BP 135/84; PULSE 106; RESP 16; TEMP 36.1; O2SAT 95
[2022-07-19] MEDS: Sertraline HCL 50 MG TABLET PO (08:19)
[2022-07-19] MEDS: OLANZapine 5 MG TABLET PO (08:19)
[2022-07-19] MEDS: glipiZIDE XL 10 MG TAB.ER.24 PO (08:19)
[2022-07-19] MEDS: LORazepam 0.5 MG TABLET 1.5 MG PO ×3 (08:19→20:30)
[2022-07-19] MEDS: Multivitamin TABLET 1 TAB PO (08:19)
[2022-07-19] MEDS: metFORMIN HCl 1,000 MG TABLET 1000 MG PO ×2 (09:25→17:18)
--- NOTE | 2022-07-19 10:06 | HO.PSYCHPN ---
Subjective Subjective Date of Service: 07/19/22 Reason For Visit: SI Interim History: Met with patient; discussed case with team; Discussed case with patient's mother; discussed case with colleague who agrees with starting ECT Patient remains with some paranoid thinking. He put in a 3 day notice but then told typewriters functional tester he would retracted. Asked if verbal retraction was enough. Patient shared that he feels unsafe on the floor due to other peers. He also keeps referring to not following the COVID protocols though he can not explain why he is talking about this. Political Researcher had discussed case with Dr. Leyva who knows patient and agrees that it is best to start ECT. Political Researcher Discussed this with patient and his mother who was present and patient agreed to start ECT. Mental Status Exam Mental Status Exam Narrative: Patient Appearance:?Appropriate; hospital attire, glasses; unkempt hair but adequate hygiene. Patient Orientation:?Person, Place and Situation Level of Consciousness:?Awake Patient Behavior: calm, cooperative, but also somewhat suspicious Mood Description:?anxious Affect Description:? congruent Ability to Follow Directions:?fair Speech Pattern: normal rate, prosody, volume Delusions:?paranoid delusions Thought Process: can be?goal oriented and logical, but still perseverative Thought Content:?on paranoid delusions Judgment:?impaired Diagnostics Vital Signs (24Hr): Vital Signs - 24 hr 07/18/22 18:00 07/19/22 08:15 Temperature 98 F 97 F Pulse Rate 110 H 106 H Respiratory Rate 14 16 Blood Pressure 138/82 135/84 Pulse Oximetry 95 Oxygen Delivery Method Room Air BMI result Body Mass Index 30.3 Labs 07/15/22 13:43 07/16/22 07:51 Labs: Laboratory Results - last 48 hr 07/17/22 07/17/22 07/18/22 13:07 20:48 08:30 POC Glucose 75 116 H 131 H 07/18/22 07/19/22 20:48 08:08 POC Glucose 128 H 136 H Medications Medications Current Medications Acetaminophen (Acetaminophen 325 Mg Tablet) 650 mg PO Q6H PRN PRN Reason: Headache/Pain Mild Scale (1-3) Al Hydroxide/Mg Hydroxide (Magnesium Hydrox/Alum Hydrox 30 Ml Oral.Susp) 30 ml PO Q6H PRN PRN Reason: Heartburn/Nausea Atorvastatin Calcium (Atorvastatin Calcium 20 Mg Tablet) 20 mg PO BEDTIME [facility] Last Admin: 07/18/22 20:25 Dose: 20 mg Glipizide (Glipizide Xl 10 Mg Tab.Er.24) 10 mg PO DAILY [facility] Last Admin: 07/19/22 08:19 Dose: 10 mg Hydroxyzine HCl (Hydroxyzine Hcl 25 Mg Tablet) 25 mg PO Q6H PRN PRN Reason: Anxiety Last Admin: 07/17/22 13:04 Dose: 25 mg Lorazepam (Lorazepam 0.5 Mg Tablet) 1.5 mg PO TID [facility] Last Admin: 07/19/22 08:19 Dose: 1.5 mg Magnesium Hydroxide (Milk Of Magnesia 30 Ml Oral.Susp) 30 ml PO DAILY PRN PRN Reason: Constipation Last Admin: 07/17/22 11:30 Dose: 30 ml Metformin HCl (Metformin Hcl 1,000 Mg Tablet) 1,000 mg PO BIDWM [facility] Last Admin: 07/19/22 09:25 Dose: 1,000 mg Multivitamins/Vitamin C (Multivitamin Tablet) 1 tab PO DAILY [facility] Last Admin: 07/19/22 08:19 Dose: 1 tab Olanzapine (Olanzapine 7.5 Mg Tablet) 15 mg PO BEDTIME [facility] Last Admin: 07/18/22 20:25 Dose: 15 mg Olanzapine (Olanzapine 2.5 Mg Tablet) 2.5 mg PO TID PRN PRN Reason: psychosis and severe anxiety Last Admin: 07/18/22 19:11 Dose: 2.5 mg Olanzapine (Olanzapine 5 Mg Tablet) 5 mg PO DAILY [facility] Last Admin: 07/19/22 08:19 Dose: 5 mg Sertraline HCl (Sertraline Hcl 50 Mg Tablet) 50 mg PO DAILY [facility] Last Admin: 07/19/22 08:19 Dose: 50 mg Trazodone HCl (Trazodone Hcl 50 Mg Tablet) 50 mg PO BEDTIME PRN PRN Reason: Insomnia Last Admin: 07/18/22 20:25 Dose: 50 mg Allergies Allergies Allergy/AdvReac Type Severity Reaction Status Date / Time No Known Allergies Allergy Verified 04/19/21 07:03 [No Known Allergies*] Assessment & Plan Assessment & Plan (1) Bipolar affective, depress, sev w/ psych: Status: Acute Code(s): F31.5 - Bipolar disorder, current episode depressed, severe, with psychotic features Assessment and Plan: Patient presents to [facility] from [facility] after attending for a few days of [facility] with continuing worsening of symptoms.? ? He has been experiencing increased symptoms of depression and anxiety.? Precipitant is divorce, as well as plan to sell his house and moved to [facility] to live with his mother.? He has also been experiencing paranoia, thinking that others are talking about him. He denies any thought of harm to himself or others, no safety concerns at this time.? He does have a significant history of catatonia, with several hospitalizations.? He has had ECT in the past.? He states that his memory has not fully returned since ECT last year although seems to have responded in terms of his catatonia and depression. He appeared reticent, overwhelmed during interview.? He has recently had medication changes, including increase in olanzapine, sertraline, lorazepam doses.? Plan Patient is a 51-year-old male with history of bipolar disorder, bouts of catatonia who presents from [facility] for worsening symptoms of depression and paranoia. 07/18/2022 patient is paranoid but with some insight; patient agrees to increasing Zyprexa; Zoloft was not restarted on admission but since patient has been on it with her recent increase will titrate again. 07/19 patient agrees to start ECT; EKG ordered and hospital consult ordered Plan CV accepted Q 15 minute checks. ECT #1 scheduled for 07/20/22 NPO after midnight Continue Zyprexa 15 mg q.h.s. Increase Zyprexa to 5 mg daily Restart Zoloft at 50 mg; last week patient was titrated to 150 mg so will restart this time. Continue Ativan 1.5 mg t.i.d. - Encourage PO intake. Monitor for worsening mental state and development of catatonia. - Encourage group and milieu treatment. - consider ECT - Collaterals - Disposition planning. is HCP Patient educated on: diagnosis, medication risk/benefits and ECT Guardian/Caregiver educated on: diagnosis (mother is also on HCP), medication risk/benefits and ECT Informed Consent: understands and further education needed Reason for contiued inpatient stay Substantial Risk for: inability to function Time Spent With Patient Time: Total time managing care of this patient today ____ minutes.
[2022-07-19 12:01] LABS: Influenza A PCR NEGATIVE (Negative); Influenza B PCR NEGATIVE (Negative); Resp Syncy Virus RNA Qual PCR NEGATIVE (Negative); SARS COV2 PCR INHOUSE NEGATIVE (Negative)
--- NOTE | 2022-07-19 15:28 | P.CONHOSP_ITS ---
History of Present Illness Data of Consult Service Date: 07/19/22 Requesting physician: Fredo Prieto Primary Care Provider: Talat Snow MD HPI 51 year old man with history of diabetes, HLD, admitted to for mental health issues. stable vital signs. He has no acute complaints at this time. Plan is for ECT and medical consultation was placed Review of Systems Review of Systems: Denies any recent fever chills or decrease in appetite respiratory denies any shortness of breath coverage production cardiovascular denied chest pain gastrointestinal denies any dysphagia abdominal pain nausea vomiting or diarrhea genitourinary denies any dysuria frequency or hematuria musculoskeletal denies any joint pain or swelling neuropsych denies any weakness or seizures all other systems reviewed are negative [facility] Medical History (Updated 07/19/22 @ 15:29 by Malou Carrillo NP) Bipolar 1 disorder Depression Diabetes Hyperlipemia Inguinal hernia Sleep apnea Social anxiety disorder Surgical History (Updated 07/19/22 @ 16:08 by Malou Carrillo NP) H/O hernia repair Social History Household Members: None Housing: Unknown / Unable to assess Do you presently have visiting nurse or other home services: No Unable to assess alcohol history related to: Unable to respond and Unknown Patient Tobacco Use Status: Never used Tobacco Use of substances other than those prescribed or required for medical reasons: No Currently Displaying Signs/Symptoms of Drug Intoxication Withdrawal: No Have you been hit, kicked, punched, or otherwise hurt by someone within the past year? If so, by whom?: No Do you feel safe in your current relationship?: Yes Is there a partner from a previous relationship who is making you feel unsafe now?: No Are you made to feel afraid or neglected: No Spiritual Healthcare Practices: N/A Muslim Healthcare Practices: N/A Cultural Healthcare Practices: N/A Advance Directives: Yes Advance Directives Information Provided: Yes Advance Directives on File: No Healthcare Proxy: No Guardian: No Do you have thoughts of harming others: None Do you have a plan to hurt others: No Plan Recently lost weight without trying: No How much weight loss: Not applicable Eating poorly because of decreased appetite: No Nutrition screen score: 0 Nutrition Risks: No Nutritional Risk Poor oral hygiene: No service: No Sexual orientation: Straight/Heterosexual Meds Allergies Allergy/AdvReac Type Severity Reaction Status Date / Time No Known Allergies Allergy Verified 04/19/21 07:03 [No Known Allergies*] Active Medications: Current Medications Acetaminophen (Acetaminophen 325 Mg Tablet) 650 mg PO Q6H PRN PRN Reason: Headache/Pain Mild Scale (1-3) Al Hydroxide/Mg Hydroxide (Magnesium Hydrox/Alum Hydrox 30 Ml Oral.Susp) 30 ml PO Q6H PRN PRN Reason: Heartburn/Nausea Atorvastatin Calcium (Atorvastatin Calcium 20 Mg Tablet) 20 mg PO BEDTIME [facility] Last Admin: 07/18/22 20:25 Dose: 20 mg Glipizide (Glipizide Xl 10 Mg Tab.Er.24) 10 mg PO DAILY [facility] Last Admin: 07/19/22 08:19 Dose: 10 mg Hydroxyzine HCl (Hydroxyzine Hcl 25 Mg Tablet) 25 mg PO Q6H PRN PRN Reason: Anxiety Last Admin: 07/17/22 13:04 Dose: 25 mg Lorazepam (Lorazepam 0.5 Mg Tablet) 1.5 mg PO TID [facility] Last Admin: 07/19/22 13:43 Dose: 1.5 mg Magnesium Hydroxide (Milk Of Magnesia 30 Ml Oral.Susp) 30 ml PO DAILY PRN PRN Reason: Constipation Last Admin: 07/17/22 11:30 Dose: 30 ml Metformin HCl (Metformin Hcl 1,000 Mg Tablet) 1,000 mg PO BIDWM [facility] Last Admin: 07/19/22 09:25 Dose: 1,000 mg Multivitamins/Vitamin C (Multivitamin Tablet) 1 tab PO DAILY [facility] Last Admin: 07/19/22 08:19 Dose: 1 tab Olanzapine (Olanzapine 7.5 Mg Tablet) 15 mg PO BEDTIME [facility] Last Admin: 07/18/22 20:25 Dose: 15 mg Olanzapine (Olanzapine 2.5 Mg Tablet) 2.5 mg PO TID PRN PRN Reason: psychosis and severe anxiety Last Admin: 07/18/22 19:11 Dose: 2.5 mg Olanzapine (Olanzapine 5 Mg Tablet) 5 mg PO DAILY [facility] Last Admin: 07/19/22 08:19 Dose: 5 mg Sertraline HCl (Sertraline Hcl 50 Mg Tablet) 50 mg PO DAILY [facility] Last Admin: 07/19/22 08:19 Dose: 50 mg Trazodone HCl (Trazodone Hcl 50 Mg Tablet) 50 mg PO BEDTIME PRN PRN Reason: Insomnia Last Admin: 07/18/22 20:25 Dose: 50 mg Home Medications Medication Instructions Recorded Confirmed Last Taken Type multivitamin 1 tab PO DAILY 03/01/21 07/15/22 02/28/21 History Fish Oil 04/19/21 04/19/21 Unknown History ascorbic acid (vitamin C) 500 mg 04/19/21 04/19/21 07/15/22 History tablet (Vitamin C) cholecalciferol (vitamin D3) 50 04/19/21 07/15/22 History mcg (2,000 unit) tablet (Vitamin D3) lorazepam 1 mg tablet 1.5 mg PO TID 07/12/22 07/15/22 07/15/22 History Physical Exam Vital Signs and Narrative: Vital Signs: Last Vital Signs Temp 97 F 07/19/22 08:15 Pulse 106 H 07/19/22 08:15 Resp 16 07/19/22 08:15 BP 135/84 07/19/22 08:15 Pulse Ox 95 07/19/22 08:15 O2 Del Method 07/19/22 08:15 BMI result Body Mass Index 30.3 Appearing in no acute distress head is normocephalic atraumatic eyes pupils are PERRLA sclera is anicteric mouth throat mucous membranes are intact and moist neck is supple no lymphadenopathy, no JVD noted lung sounds are clear to auscultation heart regular rate rhythm, clear S1, S2 positive bowel sounds, abdomen is soft, nontender neuro patient is alert x3, no focal deficits Results Labs 07/15/22 13:43 07/16/22 07:51 Labs: Laboratory Results - last 24 hr 07/18/22 07/19/22 07/19/22 20:48 08:08 10:51 POC Glucose 128 H 136 H Influenza Type A (PCR) NEGATIVE Influenza Type B (PCR) NEGATIVE RSV RNA Qual (PCR) NEGATIVE SARS-CoV-2 RNA (RT-PCR) NEGATIVE Assessment and Plan (1) Bipolar affective, depress, sev w/ psych: Status: Acute Plan 51-year-old man admitted to adult inpatient psych for treatment mental health issues ECT Patient has history of successful ECT. No history of aortic stenosis, asthma, COPD, atrial fibrillation, coronary artery disease, hypertension, ICD, anticoagulation. EKG shows QTC 396. No medical contraindications noted at this time for ECT. Diabetes mellitus Continue glipizide metformin Hyperlipidemia Statin Mental health Management as per psychiatric team Time Spent With Patient Time: Total time managing care of this patient today ____ minutes.
[2022-07-19 18:20] VITALS: BP 134/91; PULSE 104; RESP 16; TEMP 36.1; O2SAT 97
[2022-07-19 20:29] LABS: Glucose, Whole Blood 134 mg/dL (60-115)
[2022-07-19] MEDS: Atorvastatin Calcium 20 MG TABLET PO (20:31)
[2022-07-19] MEDS: OLANZapine 7.5 MG TABLET 15 MG PO (20:31)
[2022-07-20] VITALS (10 sets, daily range): BP systolic 128–157; BP diastolic 64–98; PULSE 82–104; RESP 16–20; TEMP 36.1–36.9; O2SAT 91–96
--- NOTE | 2022-07-20 06:46 | P.CONAN_ITS ---
[facility] [place] Active Problems Active Problems: All Active Problems (Updated 07/19/22 @ 15:29 by Malou Carrillo NP) Bipolar affective, depress, sev w/ psych (Acute) MDD (major depressive disorder) (Acute) Bipolar disorder (Acute) Type 2 diabetes mellitus (Chronic) Catatonic excitement (Acute) Bipolar I disorder with catatonia (Acute) Bipolar 2 disorder, major depressive episode (Acute) Social anxiety disorder (Acute) Bipolar 1 disorder, mixed, full remission (Acute) Past Medical History Medical History (Updated 07/19/22 @ 15:29 by Malou Carrillo NP) Bipolar 1 disorder Depression Diabetes Hyperlipemia Inguinal hernia Sleep apnea Social anxiety disorder Family History Family history of problems with anesthesia: No Surgical History Surgical History (Updated 07/19/22 @ 16:08 by Malou Carrillo NP) H/O hernia repair History of Problems with Anesthesia: No Social History Social History Household Members: None Housing: Unknown / Unable to assess Do you presently have visiting nurse or other home services: No Unable to assess alcohol history related to: Unable to respond and Unknown Patient Tobacco Use Status: Never used Tobacco Use of substances other than those prescribed or required for medical reasons: No Currently Displaying Signs/Symptoms of Drug Intoxication Withdrawal: No Have you been hit, kicked, punched, or otherwise hurt by someone within the past year? If so, by whom?: No Do you feel safe in your current relationship?: Yes Is there a partner from a previous relationship who is making you feel unsafe now?: No Are you made to feel afraid or neglected: No Spiritual Healthcare Practices: N/A Mormon Healthcare Practices: N/A Cultural Healthcare Practices: N/A Advance Directives: Yes Advance Directives Information Provided: Yes Advance Directives on File: No Healthcare Proxy: No Guardian: No Do you have thoughts of harming others: None Do you have a plan to hurt others: No Plan Recently lost weight without trying: No How much weight loss: Not applicable Eating poorly because of decreased appetite: No Nutrition screen score: 0 Nutrition Risks: No Nutritional Risk Poor oral hygiene: No service: No Sexual orientation: Straight/Heterosexual Meds Allergies Allergy/AdvReac Type Severity Reaction Status Date / Time No Known Allergies Allergy Verified 04/19/21 07:03 [No Known Allergies*] Active Medications: Current Medications Acetaminophen (Acetaminophen 325 Mg Tablet) 650 mg PO Q6H PRN PRN Reason: Headache/Pain Mild Scale (1-3) Al Hydroxide/Mg Hydroxide (Magnesium Hydrox/Alum Hydrox 30 Ml Oral.Susp) 30 ml PO Q6H PRN PRN Reason: Heartburn/Nausea Atorvastatin Calcium (Atorvastatin Calcium 20 Mg Tablet) 20 mg PO BEDTIME [facility] Last Admin: 07/19/22 20:31 Dose: 20 mg Glipizide (Glipizide Xl 10 Mg Tab.Er.24) 10 mg PO DAILY [facility] Last Admin: 07/19/22 08:19 Dose: 10 mg Hydroxyzine HCl (Hydroxyzine Hcl 25 Mg Tablet) 25 mg PO Q6H PRN PRN Reason: Anxiety Last Admin: 07/17/22 13:04 Dose: 25 mg Lorazepam (Lorazepam 0.5 Mg Tablet) 1.5 mg PO TID [facility] Last Admin: 07/19/22 20:30 Dose: 1.5 mg Magnesium Hydroxide (Milk Of Magnesia 30 Ml Oral.Susp) 30 ml PO DAILY PRN PRN Reason: Constipation Last Admin: 07/17/22 11:30 Dose: 30 ml Metformin HCl (Metformin Hcl 1,000 Mg Tablet) 1,000 mg PO BIDWM [facility] Last Admin: 07/19/22 17:18 Dose: 1,000 mg Multivitamins/Vitamin C (Multivitamin Tablet) 1 tab PO DAILY [facility] Last Admin: 07/19/22 08:19 Dose: 1 tab Olanzapine (Olanzapine 7.5 Mg Tablet) 15 mg PO BEDTIME [facility] Last Admin: 07/19/22 20:31 Dose: 15 mg Olanzapine (Olanzapine 2.5 Mg Tablet) 2.5 mg PO TID PRN PRN Reason: psychosis and severe anxiety Last Admin: 07/18/22 19:11 Dose: 2.5 mg Olanzapine (Olanzapine 5 Mg Tablet) 5 mg PO DAILY [facility] Last Admin: 07/19/22 08:19 Dose: 5 mg Sertraline HCl (Sertraline Hcl 50 Mg Tablet) 50 mg PO DAILY [facility] Last Admin: 07/19/22 08:19 Dose: 50 mg Trazodone HCl (Trazodone Hcl 50 Mg Tablet) 50 mg PO BEDTIME PRN PRN Reason: Insomnia Last Admin: 07/18/22 20:25 Dose: 50 mg Home Medications Medication Instructions Recorded Confirmed Last Taken Type multivitamin 1 tab PO DAILY 03/01/21 07/15/22 02/28/21 History Fish Oil 04/19/21 04/19/21 Unknown History ascorbic acid (vitamin C) 500 mg 04/19/21 04/19/21 07/15/22 History tablet (Vitamin C) cholecalciferol (vitamin D3) 50 04/19/21 07/15/22 History mcg (2,000 unit) tablet (Vitamin D3) lorazepam 1 mg tablet 1.5 mg PO TID 07/12/22 07/15/22 07/15/22 History Exam Exam Date and Time: July 20, 2022 0646 Height,Weight and Vital Signs: Height 6 ft 1 in Weight 104.4 kg Last Vital Signs Temp 98 F 07/20/22 06:42 Pulse 100 07/20/22 06:42 Resp 18 07/20/22 06:42 BP 137/89 07/20/22 06:42 Pulse Ox 95 07/20/22 06:42 O2 Del Method 07/20/22 06:42 Pertinent Lab Results Pertinent Lab Results: Laboratory Tests 07/15/22 07/15/22 07/15/22 13:22 13:43 13:43 WBC RBC Hgb Hct MCV MCH MCHC RDW Plt Count MPV Immature Gran % (Auto) Neut % (Auto) Lymph % (Auto) [place] % (Auto) Eos % (Auto) Baso % (Auto) Lymph # (Auto) [place] # (Auto) Eos # (Auto) Baso # (Auto) Abs Immat Gran (auto) Absolute Neuts (auto) Absolute Nucleated RBC Nucleated RBC % (auto) Sodium 142 Potassium 4.0 Chloride 103 Carbon Dioxide 24 Anion Gap 19 BUN 16 Creatinine 1.07 Estim Creat Clear Calc 103.2 Estimated GFR > 60 POC Glucose Random Glucose 138 H Fasting Glucose Calcium 10.3 H D Total Bilirubin 0.5 AST 33 ALT 70 H Alkaline Phosphatase 106 Total Protein 7.2 Albumin 5.0 Triglycerides Cholesterol LDL Cholesterol, Calc HDL Cholesterol Salicylates < 5.0 L Urine Opiates Screen Urine Fentanyl Screen Acetaminophen < 17 Ur Barbiturates Screen Ur Phencyclidine Scrn Ur Amphetamines Screen U Benzodiazepines Scrn Urine Cocaine Screen U Marijuana (THC) Screen Ethyl Alcohol < 10 Influenza Type A (PCR) NEGATIVE Influenza Type B (PCR) NEGATIVE RSV RNA Qual (PCR) NEGATIVE SARS-CoV-2 RNA (RT-PCR) NEGATIVE 07/15/22 07/15/22 07/16/22 13:43 17:21 07:51 WBC 9.5 RBC 5.43 Hgb 15.1 Hct 45.4 MCV 83.6 MCH 27.8 MCHC 33.3 RDW 13.1 Plt Count 284 MPV 11.5 Immature Gran % (Auto) 0.4 Neut % (Auto) 68.3 Lymph % (Auto) 23.5 [place] % (Auto) 6.1 Eos % (Auto) 1.1 Baso % (Auto) 0.6 Lymph # (Auto) 2.2 [place] # (Auto) 0.6 Eos # (Auto) 0.1 Baso # (Auto) 0.1 Abs Immat Gran (auto) 0.04 H Absolute Neuts (auto) 6.5 Absolute Nucleated RBC 0.000 Nucleated RBC % (auto) 0.0 Sodium 142 Potassium 4.2 Chloride 104 Carbon Dioxide 26 Anion Gap 16 BUN 17 H Creatinine 0.99 Estim Creat Clear Calc 113.2 Estimated GFR > 60 POC Glucose Random Glucose Fasting Glucose 129 H Calcium 10.3 H Total Bilirubin 0.6 AST 32 ALT 69 H Alkaline Phosphatase 122 H Total Protein 7.3 Albumin 4.9 Triglycerides 67 Cholesterol 117 LDL Cholesterol, Calc 55 HDL Cholesterol 49 Salicylates Urine Opiates Screen Not Detected Urine Fentanyl Screen Not Detected Acetaminophen Ur Barbiturates Screen Not Detected Ur Phencyclidine Scrn Not Detected Ur Amphetamines Screen Not Detected U Benzodiazepines Scrn Not Detected Urine Cocaine Screen Not Detected U Marijuana (THC) Screen Not Detected Ethyl Alcohol Influenza Type A (PCR) Influenza Type B (PCR) RSV RNA Qual (PCR) SARS-CoV-2 RNA (RT-PCR) 07/16/22 07/17/22 07/17/22 21:50 08:17 13:07 WBC RBC Hgb Hct MCV MCH MCHC RDW Plt Count MPV Immature Gran % (Auto) Neut % (Auto) Lymph % (Auto) [place] % (Auto) Eos % (Auto) Baso % (Auto) Lymph # (Auto) [place] # (Auto) Eos # (Auto) Baso # (Auto) Abs Immat Gran (auto) Absolute Neuts (auto) Absolute Nucleated RBC Nucleated RBC % (auto) Sodium Potassium Chloride Carbon Dioxide Anion Gap BUN Creatinine Estim Creat Clear Calc Estimated GFR POC Glucose 102 137 H 75 Random Glucose Fasting Glucose Calcium Total Bilirubin AST ALT Alkaline Phosphatase Total Protein Albumin Triglycerides Cholesterol LDL Cholesterol, Calc HDL Cholesterol Salicylates Urine Opiates Screen Urine Fentanyl Screen Acetaminophen Ur Barbiturates Screen Ur Phencyclidine Scrn Ur Amphetamines Screen U Benzodiazepines Scrn Urine Cocaine Screen U Marijuana (THC) Screen Ethyl Alcohol Influenza Type A (PCR) Influenza Type B (PCR) RSV RNA Qual (PCR) SARS-CoV-2 RNA (RT-PCR) 07/17/22 07/18/22 07/18/22 20:48 08:30 20:48 WBC RBC Hgb Hct MCV MCH MCHC RDW Plt Count MPV Immature Gran % (Auto) Neut % (Auto) Lymph % (Auto) [place] % (Auto) Eos % (Auto) Baso % (Auto) Lymph # (Auto) [place] # (Auto) Eos # (Auto) Baso # (Auto) Abs Immat Gran (auto) Absolute Neuts (auto) Absolute Nucleated RBC Nucleated RBC % (auto) Sodium Potassium Chloride Carbon Dioxide Anion Gap BUN Creatinine Estim Creat Clear Calc Estimated GFR POC Glucose 116 H 131 H 128 H Random Glucose Fasting Glucose Calcium Total Bilirubin AST ALT Alkaline Phosphatase Total Protein Albumin Triglycerides Cholesterol LDL Cholesterol, Calc HDL Cholesterol Salicylates Urine Opiates Screen Urine Fentanyl Screen Acetaminophen Ur Barbiturates Screen Ur Phencyclidine Scrn Ur Amphetamines Screen U Benzodiazepines Scrn Urine Cocaine Screen U Marijuana (THC) Screen Ethyl Alcohol Influenza Type A (PCR) Influenza Type B (PCR) RSV RNA Qual (PCR) SARS-CoV-2 RNA (RT-PCR) 07/19/22 07/19/22 07/19/22 08:08 10:51 20:22 WBC RBC Hgb Hct MCV MCH MCHC RDW Plt Count MPV Immature Gran % (Auto) Neut % (Auto) Lymph % (Auto) [place] % (Auto) Eos % (Auto) Baso % (Auto) Lymph # (Auto) [place] # (Auto) Eos # (Auto) Baso # (Auto) Abs Immat Gran (auto) Absolute Neuts (auto) Absolute Nucleated RBC Nucleated RBC % (auto) Sodium Potassium Chloride Carbon Dioxide Anion Gap BUN Creatinine Estim Creat Clear Calc Estimated GFR POC Glucose 136 H 134 H Random Glucose Fasting Glucose Calcium Total Bilirubin AST ALT Alkaline Phosphatase Total Protein Albumin Triglycerides Cholesterol LDL Cholesterol, Calc HDL Cholesterol Salicylates Urine Opiates Screen Urine Fentanyl Screen Acetaminophen Ur Barbiturates Screen Ur Phencyclidine Scrn Ur Amphetamines Screen U Benzodiazepines Scrn Urine Cocaine Screen U Marijuana (THC) Screen Ethyl Alcohol Influenza Type A (PCR) NEGATIVE Influenza Type B (PCR) NEGATIVE RSV RNA Qual (PCR) NEGATIVE SARS-CoV-2 RNA (RT-PCR) NEGATIVE Airway Mallampati Class: III TM Dist: >3cm Neck ROM: Full Heart: rrr Lungs: cta Assessment and Plan Assessment Anesthesia Assessment: Anesthesia Plan Discussed and Chart Reviewed Final Anesthetic Review Family History of Problems with Anesthesia: No History of Problems with Anesthesia: No NPO: Yes ASA Class: III Final Preanesthetic Review: No Changes in Pt Med Stat, Meds/Allgs Chart Reviewed and Consent Obtained/Reviewed Patient Risk: Intermediate Procedure Risk: Intermediate Anesthetic Plan Anesthetic Plan: GA Disposition: Standard PACU
--- NOTE | 2022-07-20 07:03 | MHC.SHP ---
Pre-Procedural Eval Section A Date of Service: 07/20/22 The patient is an INPATIENT: Yes Changes since office visit: No Cold of Flu in the past 2 weeks, No New Medical Problems, No Changes in Medication and No Patient answered all questions The History & Physical has been completed within 30 days and I have reviewed it.: Yes Section B Chief Complaint: SI Details of Present Illness: Admitted for exacerbation of depression and psychosis Relevant Family History (Specify if Yes): No Relevant Social History: None Present Medications: see Short Stay Collaborative assessment Medical History: No relevant PMH History of Previous Operations: No relevant previous surgery Allergies: Allergies Allergy/AdvReac Type Severity Reaction Status Date / Time No Known Allergies Allergy Verified 04/19/21 07:03 [No Known Allergies*] Review of Systems Sugical H&P ROS: Negative: Constitution, Cardiovascular, Respiratory, Neurological, Psychiatric, Hem-Onc, Allergic/Immunologic, Gastrointestinal, Genitourinary, Musculoskeletal, Integumentary, Endocrine and Eyes/Ears/Nose/Throat Exam Surgical H&P Exam: Normal: HEENT, Normal: Heart, Normal: Lungs, Normal: Extremities, Normal: Abdomen, Normal: Skin and Normal: Neurological Plan Diagnosis/Plan: Unchanged I have reviewed the history and physical and performed a pertinent physical examination on my patient. No changes have occurred unless specified. Time Spent With Patient Time: Total time managing care of this patient today _15___ minutes.
--- NOTE | 2022-07-20 07:22 | HO.ECTPROC ---
ECT Procedure Note Diagnosis/Treatment Date of Service: 07/20/22 Diagnosis: Bipolar disorder Current Treatment Number: 1 Treatment: Series Interval Clinical Notes: The patient was admitted for exacerbation of depression with suicidal ideation. Before the procedure, he was anxious and eventually he agreed to the procedure. Time: Total time managing care of this patient today _30___ minutes. ECT Settings Device: THYMATRON DGx Electrode Placement: Bitemporal Program/Pulse Width: 0.50 Energy Percent: 70 Seizure Duration By EEG (in seconds): 68 By Motor Observation (in seconds): 46 Medications Administration General Anesthetic: Etomidate (14) Muscle Relaxant: Succinylcholine (100) Ancillary Medications Analgesics: Torodol - Pre ECT Anti-emetics: Zofran - Pre ECT Cardiovascular Medications: Glycopyrrolate Miscillaneous Medications: Propofol and Flumazenil Airway Management Airway Management: Bag Mask Ventilation Treatment Recommendations Electrode Placement: Bitemporal Program/Pulse Width: 0.50 Energy Percent: 60 Pt Tolerated Procedure w/o Issue: Yes
[2022-07-20] MEDS: LORazepam 0.5 MG TABLET 1.5 MG PO ×3 (09:00→23:10)
[2022-07-20] MEDS: Multivitamin TABLET 1 TAB PO (09:01)
[2022-07-20] MEDS: Acetaminophen 325 MG TABLET 650 MG PO (09:01)
[2022-07-20] MEDS: Sertraline HCL 50 MG TABLET PO (09:02)
[2022-07-20] MEDS: glipiZIDE XL 10 MG TAB.ER.24 PO (09:02)
[2022-07-20] MEDS: OLANZapine 5 MG TABLET PO (09:02)
[2022-07-20] MEDS: metFORMIN HCl 1,000 MG TABLET 1000 MG PO ×2 (09:02→18:44)
--- NOTE | 2022-07-20 11:30 | P.PNPSI_ITS ---
Subjective Subjective Date of Service: 07/20/22 Reason For Visit: SI Interim History: met w/ patient; discussed w/ SW; called left VM for ECt today; denies side-effects. Of note, pt seems a little more clear minded and speech more natural, spontaneous. Pt agrees. He demonstrates more insight in saying he feels that no one wants to help him but knows it's not the case. Pt talks about frequent thoughts about letting his family down, letting people at work down; discussed how these feelings have likely been present for a long time. agrees to continue w/ ect tx Mental Status Exam Mental Status Exam Narrative: Patient Appearance:?Appropriate; hospital attire, glasses; unkempt hair but adequate hygiene. Patient Orientation:?Person, Place and Situation Level of Consciousness:?Awake Patient Behavior: calm, cooperative, but also somewhat suspicious Mood Description:?anxious Affect Description:? congruent Ability to Follow Directions:?fair Speech Pattern: normal rate, prosody, volume Delusions:?paranoid delusions Thought Process: can be?goal oriented and logical, but still perseverative Thought Content:?on paranoid delusions but less so Judgment/insight:?impaired but improvinb Diagnostics Vital Signs (24Hr): Vital Signs - 24 hr 07/19/22 18:20 07/20/22 06:28 07/20/22 06:42 Temperature 96.9 F 97.6 F 98 F Pulse Rate 104 H 85 100 Respiratory Rate 16 16 18 Blood Pressure 134/91 H 145/83 H 137/89 Pulse Oximetry 97 91 L 95 Oxygen Delivery Method Room Air Room Air Oxygen Flow Rate 07/20/22 07:50 07/20/22 07:55 07/20/22 08:00 Temperature 97.0 F Pulse Rate 82 102 H 95 Respiratory Rate 20 16 20 Blood Pressure 157/82 H 134/98 H 145/86 H Pulse Oximetry 94 95 94 Oxygen Delivery Method Nasal Cannula with ETCO2 Nasal Cannula with ETCO2 Nasal Cannula with ETCO2 Oxygen Flow Rate 2 2 2 07/20/22 08:05 07/20/22 08:35 07/20/22 08:20 Temperature 97.0 F Pulse Rate 100 93 96 Respiratory Rate 17 18 16 Blood Pressure 144/91 H 139/91 H 136/83 Pulse Oximetry 94 94 92 Oxygen Delivery Method Nasal Cannula with ETCO2 Room Air Room Air Oxygen Flow Rate 2 07/20/22 08:58 Temperature 97.4 F Pulse Rate 104 H Respiratory Rate 16 Blood Pressure 128/80 Pulse Oximetry 95 Oxygen Delivery Method Room Air Oxygen Flow Rate BMI result Body Mass Index 30.3 Labs 07/15/22 13:43 07/16/22 07:51 Labs: Laboratory Results - last 48 hr 07/18/22 07/19/22 07/19/22 20:48 08:08 10:51 POC Glucose 128 H 136 H Influenza Type A (PCR) NEGATIVE Influenza Type B (PCR) NEGATIVE RSV RNA Qual (PCR) NEGATIVE SARS-CoV-2 RNA (RT-PCR) NEGATIVE 07/19/22 20:22 POC Glucose 134 H Influenza Type A (PCR) Influenza Type B (PCR) RSV RNA Qual (PCR) SARS-CoV-2 RNA (RT-PCR) Medications Medications Current Medications Acetaminophen (Acetaminophen 325 Mg Tablet) 650 mg PO Q6H PRN PRN Reason: Headache/Pain Mild Scale (1-3) Last Admin: 07/20/22 09:01 Dose: 650 mg Al Hydroxide/Mg Hydroxide (Magnesium Hydrox/Alum Hydrox 30 Ml Oral.Susp) 30 ml PO Q6H PRN PRN Reason: Heartburn/Nausea Atorvastatin Calcium (Atorvastatin Calcium 20 Mg Tablet) 20 mg PO BEDTIME [facility] Last Admin: 07/19/22 20:31 Dose: 20 mg Glipizide (Glipizide Xl 10 Mg Tab.Er.24) 10 mg PO DAILY [facility] Last Admin: 07/20/22 09:02 Dose: 10 mg Hydroxyzine HCl (Hydroxyzine Hcl 25 Mg Tablet) 25 mg PO Q6H PRN PRN Reason: Anxiety Last Admin: 07/17/22 13:04 Dose: 25 mg Lorazepam (Lorazepam 0.5 Mg Tablet) 1.5 mg PO TID [facility] Last Admin: 07/20/22 09:00 Dose: 1.5 mg Magnesium Hydroxide (Milk Of Magnesia 30 Ml Oral.Susp) 30 ml PO DAILY PRN PRN Reason: Constipation Last Admin: 07/17/22 11:30 Dose: 30 ml Metformin HCl (Metformin Hcl 1,000 Mg Tablet) 1,000 mg PO BIDWM [facility] Last Admin: 07/20/22 09:02 Dose: 1,000 mg Multivitamins/Vitamin C (Multivitamin Tablet) 1 tab PO DAILY [facility] Last Admin: 07/20/22 09:01 Dose: 1 tab Olanzapine (Olanzapine 7.5 Mg Tablet) 15 mg PO BEDTIME [facility] Last Admin: 07/19/22 20:31 Dose: 15 mg Olanzapine (Olanzapine 2.5 Mg Tablet) 2.5 mg PO TID PRN PRN Reason: psychosis and severe anxiety Last Admin: 07/18/22 19:11 Dose: 2.5 mg Olanzapine (Olanzapine 5 Mg Tablet) 5 mg PO DAILY [facility] Last Admin: 07/20/22 09:02 Dose: 5 mg Sertraline HCl (Sertraline Hcl 50 Mg Tablet) 50 mg PO DAILY [facility] Last Admin: 07/20/22 09:02 Dose: 50 mg Trazodone HCl (Trazodone Hcl 50 Mg Tablet) 50 mg PO BEDTIME PRN PRN Reason: Insomnia Last Admin: 07/18/22 20:25 Dose: 50 mg Allergies Allergies Allergy/AdvReac Type Severity Reaction Status Date / Time No Known Allergies Allergy Verified 04/19/21 07:03 [No Known Allergies*] Assessment & Plan Assessment & Plan (1) Bipolar affective, depress, sev w/ psych: Status: Acute Code(s): F31.5 - Bipolar disorder, current episode depressed, severe, with psychotic features Assessment and Plan: Patient presents to from [facility] after attending for a few days of [facility] with continuing worsening of symptoms.? ? He has been experiencing increased symptoms of depression and anxiety.? Precipitant is divorce, as well as plan to sell his house and moved to [facility] to live with his mother.? He has also been experiencing paranoia, thinking that others are talking about him. He denies any thought of harm to himself or others, no safety concerns at this time.? He does have a significant history of catatonia, with several hospitalizations.? He has had ECT in the past.? He states that his memory has not fully returned since ECT last year although seems to have responded in terms of his catatonia and depression. He appeared reticent, overwhelmed during interview.? He has recently had medication changes, including increase in olanzapine, sertraline, lorazepam doses.? Plan Patient is a 51-year-old male with history of bipolar disorder, bouts of catatonia who presents from [facility] for worsening symptoms of depression and paranoia. 07/18/2022 patient is paranoid but with some insight; patient agrees to increasing Zyprexa; Zoloft was not restarted on admission but since patient has been on it with her recent increase will titrate again. 07/19 patient agrees to start ECT; EKG ordered and hospital consult ordered 07/20 little more clear minded following ECT to which pt agrees; continue tx plan Plan CV (retracted 3 day on 07/19) Q 15 minute checks. ECT #1 07/20/22 ECT #2 pending for 07/22/22 NPO after midnight Continue Zyprexa 15 mg q.h.s. Increase Zyprexa to 5 mg daily Restart Zoloft at 50 mg; last week patient was titrated to 150 mg so will restart this time. Continue Ativan 1.5 mg t.i.d. - Encourage PO intake. Monitor for worsening mental state and development of catatonia. - Encourage group and milieu treatment. - consider ECT - Collaterals - Disposition planning. is HCP Patient educated on: diagnosis and ECT Informed Consent: understands Reason for contiued inpatient stay Substantial Risk for: inability to function Time Spent With Patient Time: Total time managing care of this patient today ____ minutes.
[2022-07-20] MEDS: hydrOXYzine HCL 25 MG TABLET PO (12:15)
[2022-07-20] MEDS: OLANZapine 2.5 MG TABLET PO ×2 (14:16→19:14)
[2022-07-20 21:42] LABS: Glucose, Whole Blood 73 mg/dL (60-115)
[2022-07-20 22:19] LABS: Glucose, Whole Blood 85 mg/dL (60-115)
[2022-07-20] MEDS: OLANZapine 7.5 MG TABLET 15 MG PO (22:33)
[2022-07-20] MEDS: Atorvastatin Calcium 20 MG TABLET PO (22:33)
--- NOTE | 2022-07-20 23:20 | PC.NURSE ---
POC DONE AT 2134 READ 73 VIA GLUCOMETER. PATIENT ATE A SMALL SERVING OF CHEERIOS WITH WHOLE MILK AND 2 [id number] OF SUGAR. POC WAS RECHECKED AT 2213 AND READ 85 PER GLUCOMETER.
[2022-07-21 06:00] VITALS: BP 141/97; PULSE 107; RESP 14; TEMP 36.6; O2SAT 94
[2022-07-21 07:00] VITALS: BMI 29.8
[2022-07-21] MEDS: Multivitamin TABLET 1 TAB PO (08:29)
[2022-07-21] MEDS: glipiZIDE XL 10 MG TAB.ER.24 PO (08:29)
[2022-07-21] MEDS: metFORMIN HCl 1,000 MG TABLET 1000 MG PO ×2 (08:29→16:09)
[2022-07-21] MEDS: Sertraline HCL 50 MG TABLET PO (08:30)
[2022-07-21] MEDS: OLANZapine 5 MG TABLET PO (08:30)
[2022-07-21] MEDS: Empagliflozin 10 MG TABLET PO (08:30)
[2022-07-21] MEDS: LORazepam 0.5 MG TABLET 1.5 MG PO ×3 (08:30→19:45)
[2022-07-21] MEDS: OLANZapine 2.5 MG TABLET PO (10:34)
[2022-07-21 16:13] VITALS: BP 138/80; PULSE 74; RESP 16; TEMP 36.4; O2SAT 97
[2022-07-21] MEDS: OLANZapine 7.5 MG TABLET 15 MG PO (19:44)
[2022-07-21] MEDS: Atorvastatin Calcium 20 MG TABLET PO (19:45)
--- NOTE | 2022-07-21 23:15 | HO.PSYCHPN ---
Subjective Subjective Date of Service: 07/21/22 Reason For Visit: SI Interim History: pt again shares about delusional worries he's not following covid precautions; however he remains w/ improved insight as he says he knows he's thinking in a paranoid way. he agrees to ECT tomorrow. Pt reads a list of things he's struggled with over time; discussed more of his history of feeling insecure. Discussed tx plan going forward including perhaps ECT monthly Mental Status Exam Mental Status Exam Narrative: Patient Appearance:?Appropriate; hospital attire, glasses; unkempt hair but adequate hygiene. Patient Orientation:?Person, Place and Situation Level of Consciousness:?Awake Patient Behavior: calm, cooperative, but also somewhat suspicious Mood Description:?anxious Affect Description:? congruent Ability to Follow Directions:?fair Speech Pattern: normal rate, prosody, volume Delusions:?paranoid delusions Thought Process: can be?goal oriented and logical, but still perseverative Thought Content:?on paranoid delusions but less so Judgment/insight:?impaired but improving Diagnostics Vital Signs (24Hr): Vital Signs - 24 hr 07/21/22 06:00 07/21/22 16:13 Temperature 97.9 F 97.6 F Pulse Rate 107 H 74 Respiratory Rate 14 16 Blood Pressure 141/97 H 138/80 Pulse Oximetry 94 97 Oxygen Delivery Method Room Air Room Air BMI result Body Mass Index 30.3 Labs 07/15/22 13:43 07/16/22 07:51 Labs: Laboratory Results - last 48 hr 07/20/22 07/20/22 21:35 22:14 POC Glucose 73 85 Medications Medications Current Medications Acetaminophen (Acetaminophen 325 Mg Tablet) 650 mg PO Q6H PRN PRN Reason: Headache/Pain Mild Scale (1-3) Last Admin: 07/20/22 09:01 Dose: 650 mg Al Hydroxide/Mg Hydroxide (Magnesium Hydrox/Alum Hydrox 30 Ml Oral.Susp) 30 ml PO Q6H PRN PRN Reason: Heartburn/Nausea Atorvastatin Calcium (Atorvastatin Calcium 20 Mg Tablet) 20 mg PO BEDTIME [facility] Last Admin: 07/21/22 19:45 Dose: 20 mg Empagliflozin (Empagliflozin 10 Mg Tablet) 10 mg PO DAILY [facility] Last Admin: 07/21/22 08:30 Dose: 10 mg Glipizide (Glipizide Xl 10 Mg Tab.Er.24) 10 mg PO DAILY [facility] Last Admin: 07/21/22 08:29 Dose: 10 mg Hydroxyzine HCl (Hydroxyzine Hcl 25 Mg Tablet) 25 mg PO Q6H PRN PRN Reason: Anxiety Last Admin: 07/20/22 12:15 Dose: 25 mg Lorazepam (Lorazepam 0.5 Mg Tablet) 1.5 mg PO TID [facility] Last Admin: 07/21/22 19:45 Dose: 1.5 mg Magnesium Hydroxide (Milk Of Magnesia 30 Ml Oral.Susp) 30 ml PO DAILY PRN PRN Reason: Constipation Last Admin: 07/17/22 11:30 Dose: 30 ml Metformin HCl (Metformin Hcl 1,000 Mg Tablet) 1,000 mg PO BIDWM [facility] Last Admin: 07/21/22 16:09 Dose: 1,000 mg Multivitamins/Vitamin C (Multivitamin Tablet) 1 tab PO DAILY [facility] Last Admin: 07/21/22 08:29 Dose: 1 tab Olanzapine (Olanzapine 7.5 Mg Tablet) 15 mg PO BEDTIME [facility] Last Admin: 07/21/22 19:44 Dose: 15 mg Olanzapine (Olanzapine 2.5 Mg Tablet) 2.5 mg PO TID PRN PRN Reason: psychosis and severe anxiety Last Admin: 07/21/22 10:34 Dose: 2.5 mg Olanzapine (Olanzapine 5 Mg Tablet) 5 mg PO DAILY [facility] Last Admin: 07/21/22 08:30 Dose: 5 mg Sertraline HCl (Sertraline Hcl 50 Mg Tablet) 50 mg PO DAILY [facility] Last Admin: 07/21/22 08:30 Dose: 50 mg Trazodone HCl (Trazodone Hcl 50 Mg Tablet) 50 mg PO BEDTIME PRN PRN Reason: Insomnia Last Admin: 07/18/22 20:25 Dose: 50 mg Allergies Allergies Allergy/AdvReac Type Severity Reaction Status Date / Time No Known Allergies Allergy Verified 04/19/21 07:03 [No Known Allergies*] Assessment & Plan Assessment & Plan (1) Bipolar affective, depress, sev w/ psych: Status: Acute Code(s): F31.5 - Bipolar disorder, current episode depressed, severe, with psychotic features Assessment and Plan: Patient presents to from [facility] after attending for a few days of [facility] with continuing worsening of symptoms.? ? He has been experiencing increased symptoms of depression and anxiety.? Precipitant is divorce, as well as plan to sell his house and moved to [facility] to live with his mother.? He has also been experiencing paranoia, thinking that others are talking about him. He denies any thought of harm to himself or others, no safety concerns at this time.? He does have a significant history of catatonia, with several hospitalizations.? He has had ECT in the past.? He states that his memory has not fully returned since ECT last year although seems to have responded in terms of his catatonia and depression. He appeared reticent, overwhelmed during interview.? He has recently had medication changes, including increase in olanzapine, sertraline, lorazepam doses.? Plan Patient is a 51-year-old male with history of bipolar disorder, bouts of catatonia who presents from [facility] for worsening symptoms of depression and paranoia. 07/18/2022 patient is paranoid but with some insight; patient agrees to increasing Zyprexa; Zoloft was not restarted on admission but since patient has been on it with her recent increase will titrate again. 07/19 patient agrees to start ECT; EKG ordered and hospital consult ordered 07/20 little more clear minded following ECT to which pt agrees; continue tx plan Plan CV (retracted 3 day on 07/19) Q 15 minute checks. ECT #1 07/20/22 ECT #2 pending for 07/22/22 NPO after midnight Continue Zyprexa 15 mg q.h.s. Increase Zyprexa to 5 mg daily Restart Zoloft at 50 mg; last week patient was titrated to 150 mg so will restart this time. Continue Ativan 1.5 mg t.i.d. - Encourage PO intake. Monitor for worsening mental state and development of catatonia. - Encourage group and milieu treatment. - consider ECT - Collaterals - Disposition planning. is HCP Patient educated on: diagnosis, ECT and therapeutic strategies Informed Consent: understands and further education needed Reason for contiued inpatient stay Substantial Risk for: rapid decompensation Time Spent With Patient Time: Total time managing care of this patient today ____ minutes.
[2022-07-22] VITALS (10 sets, daily range): BP systolic 108–141; BP diastolic 70–108; PULSE 61–110; RESP 14–22; TEMP 36.1–36.6; O2SAT 94–99
--- NOTE | 2022-07-22 06:54 | HO.ANESPROP2 ---
[facility] Active Problems Active Problems: All Active Problems (Updated 07/19/22 @ 15:29 by Malou Carrillo NP) Bipolar affective, depress, sev w/ psych (Acute) MDD (major depressive disorder) (Acute) Bipolar disorder (Acute) Type 2 diabetes mellitus (Chronic) Catatonic excitement (Acute) Bipolar I disorder with catatonia (Acute) Bipolar 2 disorder, major depressive episode (Acute) Social anxiety disorder (Acute) Bipolar 1 disorder, mixed, full remission (Acute) Past Medical History Medical History (Updated 07/19/22 @ 15:29 by Malou Carrillo NP) Bipolar 1 disorder Depression Diabetes Hyperlipemia Inguinal hernia Sleep apnea Social anxiety disorder Family History Family history of problems with anesthesia: No Surgical History Surgical History (Updated 07/19/22 @ 16:08 by Malou Carrillo NP) H/O hernia repair History of Problems with Anesthesia: No Social History Social History Household Members: None Housing: Unknown / Unable to assess Do you presently have visiting nurse or other home services: No Unable to assess alcohol history related to: Unable to respond and Unknown Patient Tobacco Use Status: Never used Tobacco Use of substances other than those prescribed or required for medical reasons: No Currently Displaying Signs/Symptoms of Drug Intoxication Withdrawal: No Have you been hit, kicked, punched, or otherwise hurt by someone within the past year? If so, by whom?: No Do you feel safe in your current relationship?: Yes Is there a partner from a previous relationship who is making you feel unsafe now?: No Are you made to feel afraid or neglected: No Spiritual Healthcare Practices: N/A Yarsani Healthcare Practices: N/A Cultural Healthcare Practices: N/A Advance Directives: Yes Advance Directives Information Provided: Yes Advance Directives on File: No Healthcare Proxy: No Guardian: No Do you have thoughts of harming others: None Do you have a plan to hurt others: No Plan Recently lost weight without trying: No How much weight loss: Not applicable Eating poorly because of decreased appetite: No Nutrition screen score: 0 Nutrition Risks: No Nutritional Risk Poor oral hygiene: No service: No Sexual orientation: Straight/Heterosexual Meds Allergies Allergy/AdvReac Type Severity Reaction Status Date / Time No Known Allergies Allergy Verified 04/19/21 07:03 [No Known Allergies*] Active Medications: Current Medications Acetaminophen (Acetaminophen 325 Mg Tablet) 650 mg PO Q6H PRN PRN Reason: Headache/Pain Mild Scale (1-3) Last Admin: 07/20/22 09:01 Dose: 650 mg Al Hydroxide/Mg Hydroxide (Magnesium Hydrox/Alum Hydrox 30 Ml Oral.Susp) 30 ml PO Q6H PRN PRN Reason: Heartburn/Nausea Atorvastatin Calcium (Atorvastatin Calcium 20 Mg Tablet) 20 mg PO BEDTIME [facility] Last Admin: 07/21/22 19:45 Dose: 20 mg Empagliflozin (Empagliflozin 10 Mg Tablet) 10 mg PO DAILY [facility] Last Admin: 07/21/22 08:30 Dose: 10 mg Glipizide (Glipizide Xl 10 Mg Tab.Er.24) 10 mg PO DAILY [facility] Last Admin: 07/21/22 08:29 Dose: 10 mg Hydroxyzine HCl (Hydroxyzine Hcl 25 Mg Tablet) 25 mg PO Q6H PRN PRN Reason: Anxiety Last Admin: 07/20/22 12:15 Dose: 25 mg Lorazepam (Lorazepam 0.5 Mg Tablet) 1.5 mg PO TID [facility] Last Admin: 07/21/22 19:45 Dose: 1.5 mg Magnesium Hydroxide (Milk Of Magnesia 30 Ml Oral.Susp) 30 ml PO DAILY PRN PRN Reason: Constipation Last Admin: 07/17/22 11:30 Dose: 30 ml Metformin HCl (Metformin Hcl 1,000 Mg Tablet) 1,000 mg PO BIDWM [facility] Last Admin: 07/21/22 16:09 Dose: 1,000 mg Multivitamins/Vitamin C (Multivitamin Tablet) 1 tab PO DAILY [facility] Last Admin: 07/21/22 08:29 Dose: 1 tab Olanzapine (Olanzapine 7.5 Mg Tablet) 15 mg PO BEDTIME [facility] Last Admin: 07/21/22 19:44 Dose: 15 mg Olanzapine (Olanzapine 2.5 Mg Tablet) 2.5 mg PO TID PRN PRN Reason: psychosis and severe anxiety Last Admin: 07/21/22 10:34 Dose: 2.5 mg Olanzapine (Olanzapine 5 Mg Tablet) 5 mg PO DAILY [facility] Last Admin: 07/21/22 08:30 Dose: 5 mg Sertraline HCl (Sertraline Hcl 50 Mg Tablet) 50 mg PO DAILY [facility] Last Admin: 07/21/22 08:30 Dose: 50 mg Trazodone HCl (Trazodone Hcl 50 Mg Tablet) 50 mg PO BEDTIME PRN PRN Reason: Insomnia Last Admin: 07/18/22 20:25 Dose: 50 mg Home Medications Medication Instructions Recorded Confirmed Last Taken Type multivitamin 1 tab PO DAILY 03/01/21 07/15/22 02/28/21 History Fish Oil 04/19/21 04/19/21 Unknown History ascorbic acid (vitamin C) 500 mg 04/19/21 04/19/21 07/15/22 History tablet (Vitamin C) cholecalciferol (vitamin D3) 50 04/19/21 07/15/22 History mcg (2,000 unit) tablet (Vitamin D3) lorazepam 1 mg tablet 1.5 mg PO TID 07/12/22 07/15/22 07/15/22 History Exam Exam Date and Time: July 22, 2022 0654 Height,Weight and Vital Signs: Height 6 ft 1 in Weight 104.4 kg Last Vital Signs Temp 97.8 F 07/22/22 05:50 Pulse 75 07/22/22 05:50 Resp 17 07/22/22 05:50 BP 138/79 07/22/22 05:50 Pulse Ox 99 07/22/22 05:50 O2 Del Method 07/22/22 05:50 O2 Flow Rate 2 07/20/22 08:05 Pertinent Lab Results Pertinent Lab Results: Laboratory Tests 07/15/22 07/15/22 07/15/22 13:22 13:43 13:43 WBC RBC Hgb Hct MCV MCH MCHC RDW Plt Count MPV Immature Gran % (Auto) Neut % (Auto) Lymph % (Auto) [place] % (Auto) Eos % (Auto) Baso % (Auto) Lymph # (Auto) [place] # (Auto) Eos # (Auto) Baso # (Auto) Abs Immat Gran (auto) Absolute Neuts (auto) Absolute Nucleated RBC Nucleated RBC % (auto) Sodium 142 Potassium 4.0 Chloride 103 Carbon Dioxide 24 Anion Gap 19 BUN 16 Creatinine 1.07 Estim Creat Clear Calc 103.2 Estimated GFR > 60 POC Glucose Random Glucose 138 H Fasting Glucose Calcium 10.3 H D Total Bilirubin 0.5 AST 33 ALT 70 H Alkaline Phosphatase 106 Total Protein 7.2 Albumin 5.0 Triglycerides Cholesterol LDL Cholesterol, Calc HDL Cholesterol Salicylates < 5.0 L Urine Opiates Screen Urine Fentanyl Screen Acetaminophen < 17 Ur Barbiturates Screen Ur Phencyclidine Scrn Ur Amphetamines Screen U Benzodiazepines Scrn Urine Cocaine Screen U Marijuana (THC) Screen Ethyl Alcohol < 10 Influenza Type A (PCR) NEGATIVE Influenza Type B (PCR) NEGATIVE RSV RNA Qual (PCR) NEGATIVE SARS-CoV-2 RNA (RT-PCR) NEGATIVE 07/15/22 07/15/22 07/16/22 13:43 17:21 07:51 WBC 9.5 RBC 5.43 Hgb 15.1 Hct 45.4 MCV 83.6 MCH 27.8 MCHC 33.3 RDW 13.1 Plt Count 284 MPV 11.5 Immature Gran % (Auto) 0.4 Neut % (Auto) 68.3 Lymph % (Auto) 23.5 [place] % (Auto) 6.1 Eos % (Auto) 1.1 Baso % (Auto) 0.6 Lymph # (Auto) 2.2 [place] # (Auto) 0.6 Eos # (Auto) 0.1 Baso # (Auto) 0.1 Abs Immat Gran (auto) 0.04 H Absolute Neuts (auto) 6.5 Absolute Nucleated RBC 0.000 Nucleated RBC % (auto) 0.0 Sodium 142 Potassium 4.2 Chloride 104 Carbon Dioxide 26 Anion Gap 16 BUN 17 H Creatinine 0.99 Estim Creat Clear Calc 113.2 Estimated GFR > 60 POC Glucose Random Glucose Fasting Glucose 129 H Calcium 10.3 H Total Bilirubin 0.6 AST 32 ALT 69 H Alkaline Phosphatase 122 H Total Protein 7.3 Albumin 4.9 Triglycerides 67 Cholesterol 117 LDL Cholesterol, Calc 55 HDL Cholesterol 49 Salicylates Urine Opiates Screen Not Detected Urine Fentanyl Screen Not Detected Acetaminophen Ur Barbiturates Screen Not Detected Ur Phencyclidine Scrn Not Detected Ur Amphetamines Screen Not Detected U Benzodiazepines Scrn Not Detected Urine Cocaine Screen Not Detected U Marijuana (THC) Screen Not Detected Ethyl Alcohol Influenza Type A (PCR) Influenza Type B (PCR) RSV RNA Qual (PCR) SARS-CoV-2 RNA (RT-PCR) 07/16/22 07/17/22 07/17/22 21:50 08:17 13:07 WBC RBC Hgb Hct MCV MCH MCHC RDW Plt Count MPV Immature Gran % (Auto) Neut % (Auto) Lymph % (Auto) [place] % (Auto) Eos % (Auto) Baso % (Auto) Lymph # (Auto) [place] # (Auto) Eos # (Auto) Baso # (Auto) Abs Immat Gran (auto) Absolute Neuts (auto) Absolute Nucleated RBC Nucleated RBC % (auto) Sodium Potassium Chloride Carbon Dioxide Anion Gap BUN Creatinine Estim Creat Clear Calc Estimated GFR POC Glucose 102 137 H 75 Random Glucose Fasting Glucose Calcium Total Bilirubin AST ALT Alkaline Phosphatase Total Protein Albumin Triglycerides Cholesterol LDL Cholesterol, Calc HDL Cholesterol Salicylates Urine Opiates Screen Urine Fentanyl Screen Acetaminophen Ur Barbiturates Screen Ur Phencyclidine Scrn Ur Amphetamines Screen U Benzodiazepines Scrn Urine Cocaine Screen U Marijuana (THC) Screen Ethyl Alcohol Influenza Type A (PCR) Influenza Type B (PCR) RSV RNA Qual (PCR) SARS-CoV-2 RNA (RT-PCR) 07/17/22 07/18/22 07/18/22 20:48 08:30 20:48 WBC RBC Hgb Hct MCV MCH MCHC RDW Plt Count MPV Immature Gran % (Auto) Neut % (Auto) Lymph % (Auto) [place] % (Auto) Eos % (Auto) Baso % (Auto) Lymph # (Auto) [place] # (Auto) Eos # (Auto) Baso # (Auto) Abs Immat Gran (auto) Absolute Neuts (auto) Absolute Nucleated RBC Nucleated RBC % (auto) Sodium Potassium Chloride Carbon Dioxide Anion Gap BUN Creatinine Estim Creat Clear Calc Estimated GFR POC Glucose 116 H 131 H 128 H Random Glucose Fasting Glucose Calcium Total Bilirubin AST ALT Alkaline Phosphatase Total Protein Albumin Triglycerides Cholesterol LDL Cholesterol, Calc HDL Cholesterol Salicylates Urine Opiates Screen Urine Fentanyl Screen Acetaminophen Ur Barbiturates Screen Ur Phencyclidine Scrn Ur Amphetamines Screen U Benzodiazepines Scrn Urine Cocaine Screen U Marijuana (THC) Screen Ethyl Alcohol Influenza Type A (PCR) Influenza Type B (PCR) RSV RNA Qual (PCR) SARS-CoV-2 RNA (RT-PCR) 07/19/22 07/19/22 07/19/22 08:08 10:51 20:22 WBC RBC Hgb Hct MCV MCH MCHC RDW Plt Count MPV Immature Gran % (Auto) Neut % (Auto) Lymph % (Auto) [place] % (Auto) Eos % (Auto) Baso % (Auto) Lymph # (Auto) [place] # (Auto) Eos # (Auto) Baso # (Auto) Abs Immat Gran (auto) Absolute Neuts (auto) Absolute Nucleated RBC Nucleated RBC % (auto) Sodium Potassium Chloride Carbon Dioxide Anion Gap BUN Creatinine Estim Creat Clear Calc Estimated GFR POC Glucose 136 H 134 H Random Glucose Fasting Glucose Calcium Total Bilirubin AST ALT Alkaline Phosphatase Total Protein Albumin Triglycerides Cholesterol LDL Cholesterol, Calc HDL Cholesterol Salicylates Urine Opiates Screen Urine Fentanyl Screen Acetaminophen Ur Barbiturates Screen Ur Phencyclidine Scrn Ur Amphetamines Screen U Benzodiazepines Scrn Urine Cocaine Screen U Marijuana (THC) Screen Ethyl Alcohol Influenza Type A (PCR) NEGATIVE Influenza Type B (PCR) NEGATIVE RSV RNA Qual (PCR) NEGATIVE SARS-CoV-2 RNA (RT-PCR) NEGATIVE 07/20/22 07/20/22 21:35 22:14 WBC RBC Hgb Hct MCV MCH MCHC RDW Plt Count MPV Immature Gran % (Auto) Neut % (Auto) Lymph % (Auto) [place] % (Auto) Eos % (Auto) Baso % (Auto) Lymph # (Auto) [place] # (Auto) Eos # (Auto) Baso # (Auto) Abs Immat Gran (auto) Absolute Neuts (auto) Absolute Nucleated RBC Nucleated RBC % (auto) Sodium Potassium Chloride Carbon Dioxide Anion Gap BUN Creatinine Estim Creat Clear Calc Estimated GFR POC Glucose 73 85 Random Glucose Fasting Glucose Calcium Total Bilirubin AST ALT Alkaline Phosphatase Total Protein Albumin Triglycerides Cholesterol LDL Cholesterol, Calc HDL Cholesterol Salicylates Urine Opiates Screen Urine Fentanyl Screen Acetaminophen Ur Barbiturates Screen Ur Phencyclidine Scrn Ur Amphetamines Screen U Benzodiazepines Scrn Urine Cocaine Screen U Marijuana (THC) Screen Ethyl Alcohol Influenza Type A (PCR) Influenza Type B (PCR) RSV RNA Qual (PCR) SARS-CoV-2 RNA (RT-PCR) Airway Mallampati Class: II TM Dist: >3cm Neck ROM: Full Heart: rrr Lungs: cta Assessment and Plan Assessment Anesthesia Assessment: Anesthesia Plan Discussed and Chart Reviewed Final Anesthetic Review Family History of Problems with Anesthesia: No History of Problems with Anesthesia: No NPO: Yes ASA Class: III Final Preanesthetic Review: No Changes in Pt Med Stat, Meds/Allgs Chart Reviewed and Consent Obtained/Reviewed Patient Risk: Intermediate Procedure Risk: Intermediate Anesthetic Plan Anesthetic Plan: GA Disposition: Standard PACU
[2022-07-22 07:01] LABS: Glucose, Whole Blood 140 mg/dL (60-115)
--- NOTE | 2022-07-22 07:05 | MHC.SHP ---
Pre-Procedural Eval Section A Date of Service: 07/22/22 The patient is an INPATIENT: Yes Changes since office visit: No Cold of Flu in the past 2 weeks, No New Medical Problems, No Changes in Medication and No Patient answered all questions The History & Physical has been completed within 30 days and I have reviewed it.: Yes Section B Chief Complaint: SI Allergies: Allergies Allergy/AdvReac Type Severity Reaction Status Date / Time No Known Allergies Allergy Verified 04/19/21 07:03 [No Known Allergies*] Plan I have reviewed the history and physical and performed a pertinent physical examination on my patient. No changes have occurred unless specified. Time Spent With Patient Time: Total time managing care of this patient today ____ minutes.
--- NOTE | 2022-07-22 07:22 | HO.ECTPROC ---
ECT Procedure Note Diagnosis/Treatment Date of Service: 07/22/22 Diagnosis: Bipolar disorder and Catatonia Previous ECT Date: 07/20/22 Current Treatment Number: 2 Treatment: Series Interval Clinical Notes: The patient remains dysphoric, he complained of headache with the previous ECT that resolved with Tylenol. He had a long seizure, we needed to use Flumazenil since he had benzodiazepines last night. Glyco was used after the procedure. Time: Total time managing care of this patient today __30__ minutes. ECT Settings Device: THYMATRON DGx Electrode Placement: Bitemporal Program/Pulse Width: 0.50 Energy Percent: 60 Seizure Duration By EEG (in seconds): 74 By Motor Observation (in seconds): 41 Medications Administration General Anesthetic: Etomidate (14) Muscle Relaxant: Succinylcholine (100) Ancillary Medications Analgesics: Torodol - Pre ECT Anti-emetics: Zofran - Pre ECT Cardiovascular Medications: Glycopyrrolate Miscillaneous Medications: Propofol and Flumazenil Airway Management Airway Management: Bag Mask Ventilation Treatment Recommendations Electrode Placement: Bitemporal Program/Pulse Width: 0.50 Energy Percent: 50 Pt Tolerated Procedure w/o Issue: Yes
[2022-07-22] MEDS: Acetaminophen 325 MG TABLET 650 MG PO (08:23)
[2022-07-22] MEDS: Sertraline HCL 50 MG TABLET PO (08:42)
[2022-07-22] MEDS: LORazepam 0.5 MG TABLET 1.5 MG PO ×3 (08:42→20:36)
[2022-07-22] MEDS: metFORMIN HCl 1,000 MG TABLET 1000 MG PO ×2 (08:42→17:08)
[2022-07-22] MEDS: Empagliflozin 10 MG TABLET PO (08:43)
[2022-07-22] MEDS: OLANZapine 5 MG TABLET PO (08:43)
[2022-07-22] MEDS: Multivitamin TABLET 1 TAB PO (08:43)
[2022-07-22] MEDS: glipiZIDE XL 10 MG TAB.ER.24 PO (08:43)
--- NOTE | 2022-07-22 09:34 | HO.PSYCHPN ---
Subjective Subjective Date of Service: 07/22/22 Reason For Visit: SI Interim History: Met with patient; discussed with team Patient reports that he is feeling better, more clear minded after ECT today. He also says he is not feeling any worries about peers on the unit that everyone seems nice. Patient feels good about treatment and about getting ECT on Monday. Mental Status Exam Mental Status Exam Narrative: Patient Appearance:?Appropriate; Casual attire, glasses; adequate hygiene. Patient Orientation:?Person, Place and Situation Level of Consciousness:?Awake Patient Behavior: calm, cooperative, friendly Mood Description:?improved Affect Description:? brighter Ability to Follow Directions: good Speech Pattern: normal rate, prosody, volume Delusions:none (no paranoid thinking today) Thought Process: can be?goal oriented and logical Thought Content:?on treatment Judgment/insight:?impaired but improving (much better day of ECT) Diagnostics Vital Signs (24Hr): Vital Signs - 24 hr 07/21/22 16:13 07/22/22 05:50 07/22/22 07:26 Temperature 97.6 F 97.8 F 97.0 F Pulse Rate 74 75 61 Respiratory Rate 16 17 22 H Blood Pressure 138/80 138/79 128/71 Pulse Oximetry 97 99 95 Oxygen Delivery Method Room Air Room Air Nasal Cannula with ETCO2 Oxygen Flow Rate 2 07/22/22 07:31 07/22/22 07:36 07/22/22 07:41 Temperature Pulse Rate 109 H 78 110 H Respiratory Rate 14 19 17 Blood Pressure 136/77 132/108 H 141/99 H Pulse Oximetry 94 94 96 Oxygen Delivery Method Nasal Cannula with ETCO2 Nasal Cannula with ETCO2 Nasal Cannula with ETCO2 Oxygen Flow Rate 3 3 3 07/22/22 07:56 07/22/22 08:12 07/22/22 08:37 Temperature 97.3 F Pulse Rate 92 97 85 Respiratory Rate 17 18 16 Blood Pressure 134/84 108/70 139/86 Pulse Oximetry 96 95 94 Oxygen Delivery Method Nasal Cannula with ETCO2 Nasal Cannula with ETCO2 Room Air Oxygen Flow Rate 2 2 07/22/22 08:27 Temperature 97.2 F Pulse Rate 99 Respiratory Rate 18 Blood Pressure 124/85 Pulse Oximetry 94 Oxygen Delivery Method Room Air Oxygen Flow Rate BMI result Body Mass Index 30.3 Labs 07/15/22 13:43 07/16/22 07:51 Labs: Laboratory Results - last 48 hr 07/20/22 07/20/22 07/22/22 21:35 22:14 06:58 POC Glucose 73 85 140 H Medications Medications Current Medications Acetaminophen (Acetaminophen 325 Mg Tablet) 650 mg PO Q6H PRN PRN Reason: Headache/Pain Mild Scale (1-3) Last Admin: 07/22/22 08:23 Dose: 650 mg Al Hydroxide/Mg Hydroxide (Magnesium Hydrox/Alum Hydrox 30 Ml Oral.Susp) 30 ml PO Q6H PRN PRN Reason: Heartburn/Nausea Atorvastatin Calcium (Atorvastatin Calcium 20 Mg Tablet) 20 mg PO BEDTIME [facility] Last Admin: 07/21/22 19:45 Dose: 20 mg Empagliflozin (Empagliflozin 10 Mg Tablet) 10 mg PO DAILY [facility] Last Admin: 07/22/22 08:43 Dose: 10 mg Glipizide (Glipizide Xl 10 Mg Tab.Er.24) 10 mg PO DAILY [facility] Last Admin: 07/22/22 08:43 Dose: 10 mg Hydroxyzine HCl (Hydroxyzine Hcl 25 Mg Tablet) 25 mg PO Q6H PRN PRN Reason: Anxiety Last Admin: 07/20/22 12:15 Dose: 25 mg Lorazepam (Lorazepam 0.5 Mg Tablet) 1.5 mg PO TID [facility] Last Admin: 07/22/22 08:42 Dose: 1.5 mg Magnesium Hydroxide (Milk Of Magnesia 30 Ml Oral.Susp) 30 ml PO DAILY PRN PRN Reason: Constipation Last Admin: 07/17/22 11:30 Dose: 30 ml Metformin HCl (Metformin Hcl 1,000 Mg Tablet) 1,000 mg PO BIDWM [facility] Last Admin: 07/22/22 08:42 Dose: 1,000 mg Multivitamins/Vitamin C (Multivitamin Tablet) 1 tab PO DAILY [facility] Last Admin: 07/22/22 08:43 Dose: 1 tab Olanzapine (Olanzapine 7.5 Mg Tablet) 15 mg PO BEDTIME [facility] Last Admin: 07/21/22 19:44 Dose: 15 mg Olanzapine (Olanzapine 2.5 Mg Tablet) 2.5 mg PO TID PRN PRN Reason: psychosis and severe anxiety Last Admin: 07/21/22 10:34 Dose: 2.5 mg Olanzapine (Olanzapine 5 Mg Tablet) 5 mg PO DAILY [facility] Last Admin: 07/22/22 08:43 Dose: 5 mg Sertraline HCl (Sertraline Hcl 50 Mg Tablet) 50 mg PO DAILY [facility] Last Admin: 07/22/22 08:42 Dose: 50 mg Trazodone HCl (Trazodone Hcl 50 Mg Tablet) 50 mg PO BEDTIME PRN PRN Reason: Insomnia Last Admin: 07/18/22 20:25 Dose: 50 mg Allergies Allergies Allergy/AdvReac Type Severity Reaction Status Date / Time No Known Allergies Allergy Verified 04/19/21 07:03 [No Known Allergies*] Assessment & Plan Assessment & Plan (1) Bipolar affective, depress, sev w/ psych: Status: Acute Code(s): F31.5 - Bipolar disorder, current episode depressed, severe, with psychotic features Assessment and Plan: Patient presents to from [facility] after attending for a few days of [facility] with continuing worsening of symptoms.? ? He has been experiencing increased symptoms of depression and anxiety.? Precipitant is divorce, as well as plan to sell his house and moved to [facility] to live with his mother.? He has also been experiencing paranoia, thinking that others are talking about him. He denies any thought of harm to himself or others, no safety concerns at this time.? He does have a significant history of catatonia, with several hospitalizations.? He has had ECT in the past.? He states that his memory has not fully returned since ECT last year although seems to have responded in terms of his catatonia and depression. He appeared reticent, overwhelmed during interview.? He has recently had medication changes, including increase in olanzapine, sertraline, lorazepam doses.? Plan Patient is a 51-year-old male with history of bipolar disorder, bouts of catatonia who presents from [facility] for worsening symptoms of depression and paranoia. 07/18/2022 patient is paranoid but with some insight; patient agrees to increasing Zyprexa; Zoloft was not restarted on admission but since patient has been on it with her recent increase will titrate again. 07/19 patient agrees to start ECT; EKG ordered and hospital consult ordered 07/20 little more clear minded following ECT to which pt agrees; continue tx plan 2/3 Continues to be improved day of ECT; today, without any paranoid thinking; will continue monitoring to see if improvement remains in-between ECT treatments Plan CV (retracted 3 day on 07/19) Q 15 minute checks. ECT #1 07/20/22 ECT #2 07/22/22 ECT #3 07/25/22 NPO after midnight Continue Zyprexa 15 mg q.h.s. Increase Zyprexa to 5 mg daily Restart Zoloft at 50 mg; last week patient was titrated to 150 mg so will restart this time. Continue Ativan 1.5 mg t.i.d. - Encourage PO intake. Monitor for worsening mental state and development of catatonia. - Encourage group and milieu treatment. - consider ECT - Collaterals - Disposition planning. is HCP Patient educated on: diagnosis and ECT Informed Consent: understands Reason for contiued inpatient stay Substantial Risk for: rapid decompensation Time Spent With Patient Time: Total time managing care of this patient today ____ minutes.
[2022-07-22] MEDS: OLANZapine 7.5 MG TABLET 15 MG PO (20:34)
[2022-07-22] MEDS: traZODone HCL 50 MG TABLET PO (20:37)
[2022-07-22] MEDS: Atorvastatin Calcium 20 MG TABLET PO (20:37)
[2022-07-23 06:00] VITALS: BP 133/80; PULSE 96; RESP 14; TEMP 36.2; O2SAT 96
[2022-07-23] MEDS: Empagliflozin 10 MG TABLET PO (08:24)
[2022-07-23] MEDS: Multivitamin TABLET 1 TAB PO (08:24)
[2022-07-23] MEDS: metFORMIN HCl 1,000 MG TABLET 1000 MG PO ×2 (08:24→16:56)
[2022-07-23] MEDS: glipiZIDE XL 10 MG TAB.ER.24 PO (08:24)
[2022-07-23] MEDS: OLANZapine 5 MG TABLET PO (08:24)
[2022-07-23] MEDS: LORazepam 0.5 MG TABLET 1.5 MG PO ×3 (08:25→20:56)
[2022-07-23] MEDS: Sertraline HCL 50 MG TABLET PO (08:25)
--- NOTE | 2022-07-23 16:47 | P.PNPSI_ITS ---
Subjective Subjective Date of Service: 07/23/22 Reason For Visit: SI Subjective Notes: Conditional Voluntary Interim History: chart reviewed. Met with patient. Discussed with Nursing. Overall started ECT last week for severe depression and potential catatonia. patient had visit from and daughter today. Overall reports feeling slightly better in mood. Still depressed however. Motivation very low. Denied current SI. Attending to ADLs. Trying to socialize and attend groups. Medication Compliance: Yes Side effects from medications: No Attending Groups: Yes Review of Systems Acute medical concerns: No Review of Systems Review of Systems Yes all other systems are reviewed and are negative Mental Status Exam Mental Status Exam Narrative: Pleasant. Engaged. Appropriately dressed. Fair self-care. Depressed. Affect consistent with same. No SI. No HI. No agitation or psychosis. Insight and judgment okay Diagnostics Vital Signs (24Hr): Vital Signs - 24 hr 07/23/22 06:00 Temperature 97.1 F Pulse Rate 96 Respiratory Rate 14 Blood Pressure 133/80 Pulse Oximetry 96 Oxygen Delivery Method Room Air BMI result Body Mass Index 29.8 Labs 07/15/22 13:43 07/16/22 07:51 Labs: Laboratory Results - last 48 hr 07/22/22 06:58 POC Glucose 140 H Medications Medications Current Medications Acetaminophen (Acetaminophen 325 Mg Tablet) 650 mg PO Q6H PRN PRN Reason: Headache/Pain Mild Scale (1-3) Last Admin: 07/22/22 08:23 Dose: 650 mg Al Hydroxide/Mg Hydroxide (Magnesium Hydrox/Alum Hydrox 30 Ml Oral.Susp) 30 ml PO Q6H PRN PRN Reason: Heartburn/Nausea Atorvastatin Calcium (Atorvastatin Calcium 20 Mg Tablet) 20 mg PO BEDTIME [facility] Last Admin: 07/22/22 20:37 Dose: 20 mg Empagliflozin (Empagliflozin 10 Mg Tablet) 10 mg PO DAILY [facility] Last Admin: 07/23/22 08:24 Dose: 10 mg Glipizide (Glipizide Xl 10 Mg Tab.Er.24) 10 mg PO DAILY [facility] Last Admin: 07/23/22 08:24 Dose: 10 mg Hydroxyzine HCl (Hydroxyzine Hcl 25 Mg Tablet) 25 mg PO Q6H PRN PRN Reason: Anxiety Last Admin: 07/20/22 12:15 Dose: 25 mg Lorazepam (Lorazepam 0.5 Mg Tablet) 1.5 mg PO TID [facility] Last Admin: 07/23/22 14:23 Dose: 1.5 mg Magnesium Hydroxide (Milk Of Magnesia 30 Ml Oral.Susp) 30 ml PO DAILY PRN PRN Reason: Constipation Last Admin: 07/17/22 11:30 Dose: 30 ml Metformin HCl (Metformin Hcl 1,000 Mg Tablet) 1,000 mg PO BIDWM [facility] Last Admin: 07/23/22 08:24 Dose: 1,000 mg Multivitamins/Vitamin C (Multivitamin Tablet) 1 tab PO DAILY [facility] Last Admin: 07/23/22 08:24 Dose: 1 tab Olanzapine (Olanzapine 7.5 Mg Tablet) 15 mg PO BEDTIME [facility] Last Admin: 07/22/22 20:34 Dose: 15 mg Olanzapine (Olanzapine 2.5 Mg Tablet) 2.5 mg PO TID PRN PRN Reason: psychosis and severe anxiety Last Admin: 07/21/22 10:34 Dose: 2.5 mg Olanzapine (Olanzapine 5 Mg Tablet) 5 mg PO DAILY [facility] Last Admin: 07/23/22 08:24 Dose: 5 mg Sertraline HCl (Sertraline Hcl 50 Mg Tablet) 50 mg PO DAILY [facility] Last Admin: 07/23/22 08:25 Dose: 50 mg Trazodone HCl (Trazodone Hcl 50 Mg Tablet) 50 mg PO BEDTIME PRN PRN Reason: Insomnia Last Admin: 07/22/22 20:37 Dose: 50 mg Allergies Allergies Allergy/AdvReac Type Severity Reaction Status Date / Time No Known Allergies Allergy Verified 04/19/21 07:03 [No Known Allergies*] Assessment & Plan Assessment & Plan (1) Bipolar affective, depress, sev w/ psych: Status: Acute Code(s): F31.5 - Bipolar disorder, current episode depressed, severe, with psychotic features Assessment and Plan: Patient presents to from [facility] after attending for a few days of [facility] with continuing worsening of symptoms.? ? He has been experiencing increased symptoms of depression and anxiety.? Precipitant is divorce, as well as plan to sell his house and moved to [facility] to live with his mother.? He has also been experiencing paranoia, thinking that others are talking about him. He denies any thought of harm to himself or others, no safety concerns at this time.? He does have a significant history of catatonia, with several hospitalizations.? He has had ECT in the past.? He states that his memory has not fully returned since ECT last year although seems to have responded in terms of his catatonia and depression. He appeared reticent, overwhelmed during interview.? He has recently had medication changes, including increase in olanzapine, sertraline, lorazepam doses.? Plan Patient is a 51-year-old male with history of bipolar disorder, bouts of catatonia who presents from [facility] for worsening symptoms of depression and paranoia. 07/18/2022 patient is paranoid but with some insight; patient agrees to increasing Zyprexa; Zoloft was not restarted on admission but since patient has been on it with her recent increase will titrate again. 07/19 patient agrees to start ECT; EKG ordered and hospital consult ordered 07/20 little more clear minded following ECT to which pt agrees; continue tx plan 2/3 Continues to be improved day of ECT; today, without any paranoid thinking; will continue monitoring to see if improvement remains in-between ECT treatments Plan CV (retracted 3 day on 07/19) Q 15 minute checks. ECT #1 07/20/22 ECT #2 07/22/22 ECT #3 07/25/22 NPO after midnight Continue Zyprexa 15 mg q.h.s. Increase Zyprexa to 5 mg daily Restart Zoloft at 50 mg; last week patient was titrated to 150 mg so will restart this time. Continue Ativan 1.5 mg t.i.d. - Encourage PO intake. Monitor for worsening mental state and development of catatonia. - Encourage group and milieu treatment. - consider ECT - Collaterals - Disposition planning. is HCP 07/23/2022: No changes to treatment plan as just started ECT last week Reason for contiued inpatient stay Substantial Risk for: inability to function Time Spent With Patient Time: Total time managing care of this patient today ____ minutes.
[2022-07-23 18:00] VITALS: BP 145/84; PULSE 103; RESP 14; TEMP 36.1
--- NOTE | 2022-07-23 18:22 | PC.NURSE ---
PT retracted 3 day notice on 07/19/22
[2022-07-23] MEDS: OLANZapine 7.5 MG TABLET 15 MG PO (20:56)
[2022-07-23] MEDS: Atorvastatin Calcium 20 MG TABLET PO (20:56)
[2022-07-23 21:57] LABS: Glucose, Whole Blood 124 mg/dL (60-115)
[2022-07-24 06:00] VITALS: BP 124/85; PULSE 110; RESP 16; TEMP 36.8; O2SAT 96
[2022-07-24] MEDS: OLANZapine 5 MG TABLET PO (08:28)
[2022-07-24] MEDS: LORazepam 0.5 MG TABLET 1.5 MG PO ×3 (08:28→20:05)
[2022-07-24] MEDS: glipiZIDE XL 10 MG TAB.ER.24 PO (08:28)
[2022-07-24] MEDS: Sertraline HCL 50 MG TABLET PO (08:28)
[2022-07-24] MEDS: Empagliflozin 10 MG TABLET PO (08:28)
[2022-07-24] MEDS: metFORMIN HCl 1,000 MG TABLET 1000 MG PO ×2 (08:28→16:22)
[2022-07-24] MEDS: Multivitamin TABLET 1 TAB PO (08:29)
[2022-07-24 10:29] LABS: Creatinine Clr Calc Pharmacy 120.8; Estimated Glomerular Filt Rate > 60
--- NOTE | 2022-07-24 12:50 | P.PNPSI_ITS ---
Subjective Subjective Date of Service: 07/24/22 Reason For Visit: SI Interim History: Met with patient. Overall reports being hopeful around ECT. Had this before in February 2021 with good benefit. We discussed potential for maintenance ECT after he has responded and stabilized with inpatient ECT. Also discussed catatonia pre-admission. Happy with treatment planning. Still depressed with low motivation. No SI. Attending to ADLs. No psychosis. Medication Compliance: Yes Side effects from medications: No Attending Groups: Yes Review of Systems Acute medical concerns: No Review of Systems Review of Systems Yes all other systems are reviewed and are negative Mental Status Exam Mental Status Exam Narrative: Pleasant. Engaged. Appropriately dressed. Fair self-care. Depressed. Affect consistent with same. No SI. No HI. No agitation or psychosis. Insight and judgment okay Diagnostics Vital Signs (24Hr): Vital Signs - 24 hr 07/23/22 18:00 07/24/22 06:00 Temperature 97 F 98.2 F Pulse Rate 103 H 110 H Respiratory Rate 14 16 Blood Pressure 145/84 H 124/85 Pulse Oximetry 96 Oxygen Delivery Method Room Air BMI result Body Mass Index 29.8 Labs 07/15/22 13:43 07/24/22 09:48 Labs: Laboratory Results - last 48 hr 07/23/22 07/24/22 21:53 09:48 Creatinine 0.92 Estim Creat Clear Calc 120.8 Estimated GFR > 60 POC Glucose 124 H Medications Medications Current Medications Acetaminophen (Acetaminophen 325 Mg Tablet) 650 mg PO Q6H PRN PRN Reason: Headache/Pain Mild Scale (1-3) Last Admin: 07/22/22 08:23 Dose: 650 mg Al Hydroxide/Mg Hydroxide (Magnesium Hydrox/Alum Hydrox 30 Ml Oral.Susp) 30 ml PO Q6H PRN PRN Reason: Heartburn/Nausea Atorvastatin Calcium (Atorvastatin Calcium 20 Mg Tablet) 20 mg PO BEDTIME [facility] Last Admin: 07/23/22 20:56 Dose: 20 mg Empagliflozin (Empagliflozin 10 Mg Tablet) 10 mg PO DAILY [facility] Last Admin: 07/24/22 08:28 Dose: 10 mg Glipizide (Glipizide Xl 10 Mg Tab.Er.24) 10 mg PO DAILY [facility] Last Admin: 07/24/22 08:28 Dose: 10 mg Hydroxyzine HCl (Hydroxyzine Hcl 25 Mg Tablet) 25 mg PO Q6H PRN PRN Reason: Anxiety Last Admin: 07/20/22 12:15 Dose: 25 mg Lorazepam (Lorazepam 0.5 Mg Tablet) 1.5 mg PO TID [facility] Last Admin: 07/24/22 08:28 Dose: 1.5 mg Magnesium Hydroxide (Milk Of Magnesia 30 Ml Oral.Susp) 30 ml PO DAILY PRN PRN Reason: Constipation Last Admin: 07/17/22 11:30 Dose: 30 ml Metformin HCl (Metformin Hcl 1,000 Mg Tablet) 1,000 mg PO BIDWM [facility] Last Admin: 07/24/22 08:28 Dose: 1,000 mg Multivitamins/Vitamin C (Multivitamin Tablet) 1 tab PO DAILY [facility] Last Admin: 07/24/22 08:29 Dose: 1 tab Olanzapine (Olanzapine 7.5 Mg Tablet) 15 mg PO BEDTIME [facility] Last Admin: 07/23/22 20:56 Dose: 15 mg Olanzapine (Olanzapine 2.5 Mg Tablet) 2.5 mg PO TID PRN PRN Reason: psychosis and severe anxiety Last Admin: 07/21/22 10:34 Dose: 2.5 mg Olanzapine (Olanzapine 5 Mg Tablet) 5 mg PO DAILY [facility] Last Admin: 07/24/22 08:28 Dose: 5 mg Sertraline HCl (Sertraline Hcl 50 Mg Tablet) 50 mg PO DAILY [facility] Last Admin: 07/24/22 08:28 Dose: 50 mg Trazodone HCl (Trazodone Hcl 50 Mg Tablet) 50 mg PO BEDTIME PRN PRN Reason: Insomnia Last Admin: 07/22/22 20:37 Dose: 50 mg Allergies Allergies Allergy/AdvReac Type Severity Reaction Status Date / Time No Known Allergies Allergy Verified 04/19/21 07:03 [No Known Allergies*] Assessment & Plan Assessment & Plan (1) Bipolar affective, depress, sev w/ psych: Status: Acute Code(s): F31.5 - Bipolar disorder, current episode depressed, severe, with psychotic features Assessment and Plan: Patient presents to from [facility] after attending for a few days of [facility] with continuing worsening of symptoms.? ? He has been experiencing increased symptoms of depression and anxiety.? Precipitant is divorce, as well as plan to sell his house and moved to [facility] to live with his mother.? He has also been experiencing paranoia, thinking that others are talking about him. He denies any thought of harm to himself or others, no safety concerns at this time.? He does have a significant history of catatonia, with several hospitalizations.? He has had ECT in the past.? He states that his memory has not fully returned since ECT last year although seems to have responded in terms of his catatonia and depression. He appeared reticent, overwhelmed during interview.? He has recently had medication changes, including increase in olanzapine, sertraline, lorazepam doses.? Plan Patient is a 51-year-old male with history of bipolar disorder, bouts of catatonia who [facility] symptoms of depression and paranoia. 07/18/2022 patient is paranoid but with some insight; patient agrees to increasing Zyprexa; Zoloft was not restarted on admission but since patient has been on it with her recent increase will titrate again. 07/19 patient agrees to start ECT; EKG ordered and hospital consult ordered 07/20 little more clear minded following ECT to which pt agrees; continue tx plan 2/3 Continues to be improved day of ECT; today, without any paranoid thinking; will continue monitoring to see if improvement remains in-between ECT treatments Plan CV (retracted 3 day on 07/19) Q 15 minute checks. ECT #1 07/20/22 ECT #2 07/22/22 ECT #3 07/25/22 NPO after midnight Continue Zyprexa 15 mg q.h.s. Increase Zyprexa to 5 mg daily Restart Zoloft at 50 mg; last week patient was titrated to 150 mg so will restart this time. Continue Ativan 1.5 mg t.i.d. - Encourage PO intake. Monitor for worsening mental state and development of catatonia. - Encourage group and milieu treatment. - consider ECT - Collaterals - Disposition planning. is HCP 07/24/2022: No changes to treatment plan as just started ECT last week Reason for contiued inpatient stay Substantial Risk for: inability to function Time Spent With Patient Time: Total time managing care of this patient today ____ minutes.
[2022-07-24] MEDS: Milk of Magnesia 30 ML ORAL.SUSP PO (16:21)
[2022-07-24 18:00] VITALS: BP 119/78; PULSE 95; RESP 14; TEMP 36.4
[2022-07-24] MEDS: OLANZapine 7.5 MG TABLET 15 MG PO (20:05)
[2022-07-24] MEDS: Atorvastatin Calcium 20 MG TABLET PO (20:05)
[2022-07-25] VITALS (10 sets, daily range): BP systolic 116–182; BP diastolic 76–98; PULSE 92–111; RESP 14–20; TEMP 36.1–36.6; O2SAT 93–96
[2022-07-25 06:14] LABS: Glucose, Whole Blood 127 mg/dL (60-115)
--- NOTE | 2022-07-25 06:42 | P.CONAN_ITS ---
[facility] Active Problems Active Problems: All Active Problems (Updated 07/19/22 @ 15:29 by Malou Carrillo NP) Bipolar affective, depress, sev w/ psych (Acute) MDD (major depressive disorder) (Acute) Bipolar disorder (Acute) Type 2 diabetes mellitus (Chronic) Catatonic excitement (Acute) Bipolar I disorder with catatonia (Acute) Bipolar 2 disorder, major depressive episode (Acute) Social anxiety disorder (Acute) Bipolar 1 disorder, mixed, full remission (Acute) Past Medical History Medical History (Updated 07/19/22 @ 15:29 by Malou Carrillo NP) Bipolar 1 disorder Depression Diabetes Hyperlipemia Inguinal hernia Sleep apnea Social anxiety disorder Family History Family history of problems with anesthesia: No Surgical History Surgical History (Updated 07/19/22 @ 16:08 by Malou Carrillo NP) H/O hernia repair History of Problems with Anesthesia: No Social History Social History Household Members: None Housing: Unknown / Unable to assess Do you presently have visiting nurse or other home services: No Unable to assess alcohol history related to: Unable to respond and Unknown Patient Tobacco Use Status: Never used Tobacco Use of substances other than those prescribed or required for medical reasons: No Currently Displaying Signs/Symptoms of Drug Intoxication Withdrawal: No Have you been hit, kicked, punched, or otherwise hurt by someone within the past year? If so, by whom?: No Do you feel safe in your current relationship?: Yes Is there a partner from a previous relationship who is making you feel unsafe now?: No Are you made to feel afraid or neglected: No Spiritual Healthcare Practices: N/A Quaker Healthcare Practices: N/A Cultural Healthcare Practices: N/A Advance Directives: Yes Advance Directives Information Provided: Yes Advance Directives on File: No Healthcare Proxy: No Guardian: No Do you have thoughts of harming others: None Do you have a plan to hurt others: No Plan Recently lost weight without trying: No How much weight loss: Not applicable Eating poorly because of decreased appetite: No Nutrition screen score: 0 Nutrition Risks: No Nutritional Risk Poor oral hygiene: No service: No Sexual orientation: Straight/Heterosexual Meds Allergies Allergy/AdvReac Type Severity Reaction Status Date / Time No Known Allergies Allergy Verified 04/19/21 07:03 [No Known Allergies*] Active Medications: Current Medications Acetaminophen (Acetaminophen 325 Mg Tablet) 650 mg PO Q6H PRN PRN Reason: Headache/Pain Mild Scale (1-3) Last Admin: 07/22/22 08:23 Dose: 650 mg Al Hydroxide/Mg Hydroxide (Magnesium Hydrox/Alum Hydrox 30 Ml Oral.Susp) 30 ml PO Q6H PRN PRN Reason: Heartburn/Nausea Atorvastatin Calcium (Atorvastatin Calcium 20 Mg Tablet) 20 mg PO BEDTIME [facility] Last Admin: 07/24/22 20:05 Dose: 20 mg Empagliflozin (Empagliflozin 10 Mg Tablet) 10 mg PO DAILY [facility] Last Admin: 07/24/22 08:28 Dose: 10 mg Glipizide (Glipizide Xl 10 Mg Tab.Er.24) 10 mg PO DAILY [facility] Last Admin: 07/24/22 08:28 Dose: 10 mg Hydroxyzine HCl (Hydroxyzine Hcl 25 Mg Tablet) 25 mg PO Q6H PRN PRN Reason: Anxiety Last Admin: 07/20/22 12:15 Dose: 25 mg Lorazepam (Lorazepam 0.5 Mg Tablet) 1.5 mg PO TID [facility] Last Admin: 07/24/22 20:05 Dose: 1.5 mg Magnesium Hydroxide (Milk Of Magnesia 30 Ml Oral.Susp) 30 ml PO DAILY PRN PRN Reason: Constipation Last Admin: 07/24/22 16:21 Dose: 30 ml Metformin HCl (Metformin Hcl 1,000 Mg Tablet) 1,000 mg PO BIDWM [facility] Last Admin: 07/24/22 16:22 Dose: 1,000 mg Multivitamins/Vitamin C (Multivitamin Tablet) 1 tab PO DAILY [facility] Last Admin: 07/24/22 08:29 Dose: 1 tab Olanzapine (Olanzapine 7.5 Mg Tablet) 15 mg PO BEDTIME [facility] Last Admin: 07/24/22 20:05 Dose: 15 mg Olanzapine (Olanzapine 2.5 Mg Tablet) 2.5 mg PO TID PRN PRN Reason: psychosis and severe anxiety Last Admin: 07/21/22 10:34 Dose: 2.5 mg Olanzapine (Olanzapine 5 Mg Tablet) 5 mg PO DAILY [facility] Last Admin: 07/24/22 08:28 Dose: 5 mg Sertraline HCl (Sertraline Hcl 50 Mg Tablet) 50 mg PO DAILY [facility] Last Admin: 07/24/22 08:28 Dose: 50 mg Trazodone HCl (Trazodone Hcl 50 Mg Tablet) 50 mg PO BEDTIME PRN PRN Reason: Insomnia Last Admin: 07/22/22 20:37 Dose: 50 mg Home Medications Medication Instructions Recorded Confirmed Last Taken Type multivitamin 1 tab PO DAILY 03/01/21 07/15/22 02/28/21 History Fish Oil 04/19/21 04/19/21 Unknown History ascorbic acid (vitamin C) 500 mg 04/19/21 04/19/21 07/15/22 History tablet (Vitamin C) cholecalciferol (vitamin D3) 50 04/19/21 07/15/22 History mcg (2,000 unit) tablet (Vitamin D3) lorazepam 1 mg tablet 1.5 mg PO TID 07/12/22 07/15/22 07/15/22 History Exam Exam Date and Time: July 25, 2022 0642 Height,Weight and Vital Signs: Height 6 ft 1 in Weight 102.6 kg Last Vital Signs Temp 97.3 F 07/25/22 06:34 Pulse 92 07/25/22 06:34 Resp 16 07/25/22 06:34 BP 147/98 H 07/25/22 06:34 Pulse Ox 95 07/25/22 06:34 O2 Del Method 07/25/22 06:34 O2 Flow Rate 2 07/22/22 08:12 Pertinent Lab Results Pertinent Lab Results: Laboratory Tests 07/15/22 07/15/22 07/15/22 13:22 13:43 13:43 WBC RBC Hgb Hct MCV MCH MCHC RDW Plt Count MPV Immature Gran % (Auto) Neut % (Auto) Lymph % (Auto) Piatt % (Auto) Eos % (Auto) Baso % (Auto) Lymph # (Auto) Piatt # (Auto) Eos # (Auto) Baso # (Auto) Abs Immat Gran (auto) Absolute Neuts (auto) Absolute Nucleated RBC Nucleated RBC % (auto) Sodium 142 Potassium 4.0 Chloride 103 Carbon Dioxide 24 Anion Gap 19 BUN 16 Creatinine 1.07 Estim Creat Clear Calc 103.2 Estimated GFR > 60 POC Glucose Random Glucose 138 H Fasting Glucose Calcium 10.3 H D Total Bilirubin 0.5 AST 33 ALT 70 H Alkaline Phosphatase 106 Total Protein 7.2 Albumin 5.0 Triglycerides Cholesterol LDL Cholesterol, Calc HDL Cholesterol Salicylates < 5.0 L Urine Opiates Screen Urine Fentanyl Screen Acetaminophen < 17 Ur Barbiturates Screen Ur Phencyclidine Scrn Ur Amphetamines Screen U Benzodiazepines Scrn Urine Cocaine Screen U Marijuana (THC) Screen Ethyl Alcohol < 10 Influenza Type A (PCR) NEGATIVE Influenza Type B (PCR) NEGATIVE RSV RNA Qual (PCR) NEGATIVE SARS-CoV-2 RNA (RT-PCR) NEGATIVE 07/15/22 07/15/22 07/16/22 13:43 17:21 07:51 WBC 9.5 RBC 5.43 Hgb 15.1 Hct 45.4 MCV 83.6 MCH 27.8 MCHC 33.3 RDW 13.1 Plt Count 284 MPV 11.5 Immature Gran % (Auto) 0.4 Neut % (Auto) 68.3 Lymph % (Auto) 23.5 Piatt % (Auto) 6.1 Eos % (Auto) 1.1 Baso % (Auto) 0.6 Lymph # (Auto) 2.2 Piatt # (Auto) 0.6 Eos # (Auto) 0.1 Baso # (Auto) 0.1 Abs Immat Gran (auto) 0.04 H Absolute Neuts (auto) 6.5 Absolute Nucleated RBC 0.000 Nucleated RBC % (auto) 0.0 Sodium 142 Potassium 4.2 Chloride 104 Carbon Dioxide 26 Anion Gap 16 BUN 17 H Creatinine 0.99 Estim Creat Clear Calc 113.2 Estimated GFR > 60 POC Glucose Random Glucose Fasting Glucose 129 H Calcium 10.3 H Total Bilirubin 0.6 AST 32 ALT 69 H Alkaline Phosphatase 122 H Total Protein 7.3 Albumin 4.9 Triglycerides 67 Cholesterol 117 LDL Cholesterol, Calc 55 HDL Cholesterol 49 Salicylates Urine Opiates Screen Not Detected Urine Fentanyl Screen Not Detected Acetaminophen Ur Barbiturates Screen Not Detected Ur Phencyclidine Scrn Not Detected Ur Amphetamines Screen Not Detected U Benzodiazepines Scrn Not Detected Urine Cocaine Screen Not Detected U Marijuana (THC) Screen Not Detected Ethyl Alcohol Influenza Type A (PCR) Influenza Type B (PCR) RSV RNA Qual (PCR) SARS-CoV-2 RNA (RT-PCR) 07/16/22 07/17/22 07/17/22 21:50 08:17 13:07 WBC RBC Hgb Hct MCV MCH MCHC RDW Plt Count MPV Immature Gran % (Auto) Neut % (Auto) Lymph % (Auto) Piatt % (Auto) Eos % (Auto) Baso % (Auto) Lymph # (Auto) Piatt # (Auto) Eos # (Auto) Baso # (Auto) Abs Immat Gran (auto) Absolute Neuts (auto) Absolute Nucleated RBC Nucleated RBC % (auto) Sodium Potassium Chloride Carbon Dioxide Anion Gap BUN Creatinine Estim Creat Clear Calc Estimated GFR POC Glucose 102 137 H 75 Random Glucose Fasting Glucose Calcium Total Bilirubin AST ALT Alkaline Phosphatase Total Protein Albumin Triglycerides Cholesterol LDL Cholesterol, Calc HDL Cholesterol Salicylates Urine Opiates Screen Urine Fentanyl Screen Acetaminophen Ur Barbiturates Screen Ur Phencyclidine Scrn Ur Amphetamines Screen U Benzodiazepines Scrn Urine Cocaine Screen U Marijuana (THC) Screen Ethyl Alcohol Influenza Type A (PCR) Influenza Type B (PCR) RSV RNA Qual (PCR) SARS-CoV-2 RNA (RT-PCR) 07/17/22 07/18/22 07/18/22 20:48 08:30 20:48 WBC RBC Hgb Hct MCV MCH MCHC RDW Plt Count MPV Immature Gran % (Auto) Neut % (Auto) Lymph % (Auto) Piatt % (Auto) Eos % (Auto) Baso % (Auto) Lymph # (Auto) Piatt # (Auto) Eos # (Auto) Baso # (Auto) Abs Immat Gran (auto) Absolute Neuts (auto) Absolute Nucleated RBC Nucleated RBC % (auto) Sodium Potassium Chloride Carbon Dioxide Anion Gap BUN Creatinine Estim Creat Clear Calc Estimated GFR POC Glucose 116 H 131 H 128 H Random Glucose Fasting Glucose Calcium Total Bilirubin AST ALT Alkaline Phosphatase Total Protein Albumin Triglycerides Cholesterol LDL Cholesterol, Calc HDL Cholesterol Salicylates Urine Opiates Screen Urine Fentanyl Screen Acetaminophen Ur Barbiturates Screen Ur Phencyclidine Scrn Ur Amphetamines Screen U Benzodiazepines Scrn Urine Cocaine Screen U Marijuana (THC) Screen Ethyl Alcohol Influenza Type A (PCR) Influenza Type B (PCR) RSV RNA Qual (PCR) SARS-CoV-2 RNA (RT-PCR) 07/19/22 07/19/22 07/19/22 08:08 10:51 20:22 WBC RBC Hgb Hct MCV MCH MCHC RDW Plt Count MPV Immature Gran % (Auto) Neut % (Auto) Lymph % (Auto) Piatt % (Auto) Eos % (Auto) Baso % (Auto) Lymph # (Auto) Piatt # (Auto) Eos # (Auto) Baso # (Auto) Abs Immat Gran (auto) Absolute Neuts (auto) Absolute Nucleated RBC Nucleated RBC % (auto) Sodium Potassium Chloride Carbon Dioxide Anion Gap BUN Creatinine Estim Creat Clear Calc Estimated GFR POC Glucose 136 H 134 H Random Glucose Fasting Glucose Calcium Total Bilirubin AST ALT Alkaline Phosphatase Total Protein Albumin Triglycerides Cholesterol LDL Cholesterol, Calc HDL Cholesterol Salicylates Urine Opiates Screen Urine Fentanyl Screen Acetaminophen Ur Barbiturates Screen Ur Phencyclidine Scrn Ur Amphetamines Screen U Benzodiazepines Scrn Urine Cocaine Screen U Marijuana (THC) Screen Ethyl Alcohol Influenza Type A (PCR) NEGATIVE Influenza Type B (PCR) NEGATIVE RSV RNA Qual (PCR) NEGATIVE SARS-CoV-2 RNA (RT-PCR) NEGATIVE 07/20/22 07/20/22 07/22/22 21:35 22:14 06:58 WBC RBC Hgb Hct MCV MCH MCHC RDW Plt Count MPV Immature Gran % (Auto) Neut % (Auto) Lymph % (Auto) Piatt % (Auto) Eos % (Auto) Baso % (Auto) Lymph # (Auto) Piatt # (Auto) Eos # (Auto) Baso # (Auto) Abs Immat Gran (auto) Absolute Neuts (auto) Absolute Nucleated RBC Nucleated RBC % (auto) Sodium Potassium Chloride Carbon Dioxide Anion Gap BUN Creatinine Estim Creat Clear Calc Estimated GFR POC Glucose 73 85 140 H Random Glucose Fasting Glucose Calcium Total Bilirubin AST ALT Alkaline Phosphatase Total Protein Albumin Triglycerides Cholesterol LDL Cholesterol, Calc HDL Cholesterol Salicylates Urine Opiates Screen Urine Fentanyl Screen Acetaminophen Ur Barbiturates Screen Ur Phencyclidine Scrn Ur Amphetamines Screen U Benzodiazepines Scrn Urine Cocaine Screen U Marijuana (THC) Screen Ethyl Alcohol Influenza Type A (PCR) Influenza Type B (PCR) RSV RNA Qual (PCR) SARS-CoV-2 RNA (RT-PCR) 07/23/22 07/24/22 07/25/22 21:53 09:48 06:09 WBC RBC Hgb Hct MCV MCH MCHC RDW Plt Count MPV Immature Gran % (Auto) Neut % (Auto) Lymph % (Auto) Piatt % (Auto) Eos % (Auto) Baso % (Auto) Lymph # (Auto) Piatt # (Auto) Eos # (Auto) Baso # (Auto) Abs Immat Gran (auto) Absolute Neuts (auto) Absolute Nucleated RBC Nucleated RBC % (auto) Sodium Potassium Chloride Carbon Dioxide Anion Gap BUN Creatinine 0.92 Estim Creat Clear Calc 120.8 Estimated GFR > 60 POC Glucose 124 H 127 H Random Glucose Fasting Glucose Calcium Total Bilirubin AST ALT Alkaline Phosphatase Total Protein Albumin Triglycerides Cholesterol LDL Cholesterol, Calc HDL Cholesterol Salicylates Urine Opiates Screen Urine Fentanyl Screen Acetaminophen Ur Barbiturates Screen Ur Phencyclidine Scrn Ur Amphetamines Screen U Benzodiazepines Scrn Urine Cocaine Screen U Marijuana (THC) Screen Ethyl Alcohol Influenza Type A (PCR) Influenza Type B (PCR) RSV RNA Qual (PCR) SARS-CoV-2 RNA (RT-PCR) Airway Mallampati Class: II TM Dist: >3cm Neck ROM: Full Heart: rrr Lungs: cta bl Assessment and Plan Assessment Anesthesia Assessment: Anesthesia Plan Discussed and Chart Reviewed Final Anesthetic Review Family History of Problems with Anesthesia: No History of Problems with Anesthesia: No NPO: Yes ASA Class: III Final Preanesthetic Review: No Changes in Pt Med Stat, Meds/Allgs Chart Reviewed and Consent Obtained/Reviewed Patient Risk: Intermediate Procedure Risk: Intermediate Anesthetic Plan Anesthetic Plan: GA Disposition: Standard PACU
--- NOTE | 2022-07-25 07:05 | MHC.SHP ---
Pre-Procedural Eval Section A Date of Service: 07/25/22 The patient is an INPATIENT: Yes Changes since office visit: No Cold of Flu in the past 2 weeks, No New Medical Problems, No Changes in Medication and No Patient answered all questions The History & Physical has been completed within 30 days and I have reviewed it.: Yes Section B Chief Complaint: SI Allergies: Allergies Allergy/AdvReac Type Severity Reaction Status Date / Time No Known Allergies Allergy Verified 04/19/21 07:03 [No Known Allergies*] Plan I have reviewed the history and physical and performed a pertinent physical examination on my patient. No changes have occurred unless specified. Time Spent With Patient Time: Total time managing care of this patient today ____ minutes.
--- NOTE | 2022-07-25 07:06 | HO.ECTPROC ---
ECT Procedure Note Diagnosis/Treatment Date of Service: 07/25/22 Diagnosis: Bipolar disorder Previous ECT Date: 07/22/22 Current Treatment Number: 3 Treatment: Series Interval Clinical Notes: The patient reported improvement of depression, his affect looks brighter but still constricted. He reported headaches with the previous ECT so we incrased Toradol up to 30 and I lowered the stimuli to 0.5 50% Time: Total time managing care of this patient today __30__ minutes. ECT Settings Device: THYMATRON DGx Electrode Placement: Bitemporal Program/Pulse Width: 0.50 Energy Percent: 50 Seizure Duration By EEG (in seconds): 69 By Motor Observation (in seconds): 41 Medications Administration General Anesthetic: Etomidate (14) Muscle Relaxant: Succinylcholine (100) Ancillary Medications Analgesics: Torodol - Pre ECT (30) Anti-emetics: Zofran - Pre ECT Cardiovascular Medications: Glycopyrrolate Miscillaneous Medications: Propofol and Flumazenil Airway Management Airway Management: Bag Mask Ventilation Treatment Recommendations No Changes Recommended: No change Pt Tolerated Procedure w/o Issue: Yes
[2022-07-25] MEDS: LORazepam 0.5 MG TABLET 1.5 MG PO ×3 (09:17→20:52)
[2022-07-25] MEDS: glipiZIDE XL 10 MG TAB.ER.24 PO (09:17)
[2022-07-25] MEDS: Empagliflozin 10 MG TABLET PO (09:17)
[2022-07-25] MEDS: OLANZapine 5 MG TABLET PO (09:17)
[2022-07-25] MEDS: metFORMIN HCl 1,000 MG TABLET 1000 MG PO ×2 (09:17→16:59)
[2022-07-25] MEDS: Sertraline HCL 50 MG TABLET PO (09:18)
[2022-07-25] MEDS: Multivitamin TABLET 1 TAB PO (09:18)
[2022-07-25] MEDS: Acetaminophen 325 MG TABLET 650 MG PO (09:36)
--- NOTE | 2022-07-25 09:51 | P.PNPSI_ITS ---
Subjective Subjective Date of Service: 07/25/22 Reason For Visit: SI Interim History: met w/ patient; discussed in teams; discussed w/ dr. sow pt reports feeling better and agrees ECT helping; says not so afraid of peers today; shares goals going forward. Discussed case w/ emilio who thinks pt should stay for ECt on Mon; also discussed case w/ pt's mother who agrees that on day of ECT patient doing well, but inbetween ECT days, gets paranoid again. Mental Status Exam Mental Status Exam Narrative: Patient Appearance:?Appropriate; Casual attire, glasses; adequate hygiene. Patient Orientation:?Person, Place and Situation Level of Consciousness:?Awake Patient Behavior: calm, cooperative, friendly Mood Description:?improved Affect Description:? brighter Ability to Follow Directions: good Speech Pattern: normal rate, prosody, volume Delusions:none (no paranoid thinking today) Thought Process: can be?goal oriented and logical Thought Content:?on treatment Judgment/insight:?impaired but improving (much better day of ECT) Diagnostics Vital Signs (24Hr): Vital Signs - 24 hr 07/24/22 18:00 07/25/22 06:06 07/25/22 06:34 Temperature 97.5 F 97.4 F 97.3 F Pulse Rate 95 98 92 Respiratory Rate 14 18 16 Blood Pressure 119/78 128/87 147/98 H Pulse Oximetry 95 95 Oxygen Delivery Method Room Air Oxygen Flow Rate 07/25/22 07:35 07/25/22 07:40 07/25/22 07:45 Temperature 97.9 F Pulse Rate 111 H 101 H 96 Respiratory Rate 14 20 20 Blood Pressure 142/76 H 182/92 H 129/84 Pulse Oximetry 96 95 95 Oxygen Delivery Method Nasal Cannula Room Air Room Air Oxygen Flow Rate 2 07/25/22 07:50 07/25/22 08:05 07/25/22 08:20 Temperature 97.9 F Pulse Rate 101 H 107 H 102 H Respiratory Rate 20 20 18 Blood Pressure 116/83 169/98 H 139/98 H Pulse Oximetry 94 93 Oxygen Delivery Method Room Air Room Air Oxygen Flow Rate 07/25/22 09:06 Temperature 96.9 F Pulse Rate 98 Respiratory Rate 20 Blood Pressure 121/78 Pulse Oximetry Oxygen Delivery Method Oxygen Flow Rate BMI result Body Mass Index 29.8 Labs 07/15/22 13:43 07/24/22 09:48 Labs: Laboratory Results - last 48 hr 07/23/22 07/24/22 07/25/22 21:53 09:48 06:09 Creatinine 0.92 Estim Creat Clear Calc 120.8 Estimated GFR > 60 POC Glucose 124 H 127 H Medications Medications Current Medications Acetaminophen (Acetaminophen 325 Mg Tablet) 650 mg PO Q6H PRN PRN Reason: Headache/Pain Mild Scale (1-3) Last Admin: 07/25/22 09:36 Dose: 650 mg Al Hydroxide/Mg Hydroxide (Magnesium Hydrox/Alum Hydrox 30 Ml Oral.Susp) 30 ml PO Q6H PRN PRN Reason: Heartburn/Nausea Atorvastatin Calcium (Atorvastatin Calcium 20 Mg Tablet) 20 mg PO BEDTIME [facility] Last Admin: 07/24/22 20:05 Dose: 20 mg Empagliflozin (Empagliflozin 10 Mg Tablet) 10 mg PO DAILY [facility] Last Admin: 07/25/22 09:17 Dose: 10 mg Glipizide (Glipizide Xl 10 Mg Tab.Er.24) 10 mg PO DAILY [facility] Last Admin: 07/25/22 09:17 Dose: 10 mg Hydroxyzine HCl (Hydroxyzine Hcl 25 Mg Tablet) 25 mg PO Q6H PRN PRN Reason: Anxiety Last Admin: 07/20/22 12:15 Dose: 25 mg Lorazepam (Lorazepam 0.5 Mg Tablet) 1.5 mg PO TID [facility] Last Admin: 07/25/22 09:17 Dose: 1.5 mg Magnesium Hydroxide (Milk Of Magnesia 30 Ml Oral.Susp) 30 ml PO DAILY PRN PRN Reason: Constipation Last Admin: 07/24/22 16:21 Dose: 30 ml Metformin HCl (Metformin Hcl 1,000 Mg Tablet) 1,000 mg PO BIDWM [facility] Last Admin: 07/25/22 09:17 Dose: 1,000 mg Multivitamins/Vitamin C (Multivitamin Tablet) 1 tab PO DAILY [facility] Last Admin: 07/25/22 09:18 Dose: 1 tab Olanzapine (Olanzapine 7.5 Mg Tablet) 15 mg PO BEDTIME [facility] Last Admin: 07/24/22 20:05 Dose: 15 mg Olanzapine (Olanzapine 2.5 Mg Tablet) 2.5 mg PO TID PRN PRN Reason: psychosis and severe anxiety Last Admin: 07/21/22 10:34 Dose: 2.5 mg Olanzapine (Olanzapine 5 Mg Tablet) 5 mg PO DAILY [facility] Last Admin: 07/25/22 09:17 Dose: 5 mg Sertraline HCl (Sertraline Hcl 50 Mg Tablet) 50 mg PO DAILY [facility] Last Admin: 07/25/22 09:18 Dose: 50 mg Trazodone HCl (Trazodone Hcl 50 Mg Tablet) 50 mg PO BEDTIME PRN PRN Reason: Insomnia Last Admin: 07/22/22 20:37 Dose: 50 mg Allergies Allergies Allergy/AdvReac Type Severity Reaction Status Date / Time No Known Allergies Allergy Verified 04/19/21 07:03 [No Known Allergies*] Assessment & Plan Assessment & Plan (1) Bipolar affective, depress, sev w/ psych: Status: Acute Code(s): F31.5 - Bipolar disorder, current episode depressed, severe, with psychotic f eatures Assessment and Plan: Patient presents to from [facility] after attending for a few days of [facility] with continuing worsening of symptoms.? ? He has been experiencing increased symptoms of depression and anxiety.? Precipitant is divorce, as well as plan to sell his house and moved to [facility] to live with his mother.? He has also been experiencing paranoia, thinking that others are talking about him. He denies any thought of harm to himself or others, no safety concerns at this time.? He does have a significant history of catatonia, with several hospitalizations.? He has had ECT in the past.? He states that his memory has not fully returned since ECT last year although seems to have responded in terms of his catatonia and depression. He appeared reticent, overwhelmed during interview.? He has recently had medication changes, including increase in olanzapine, sertraline, lorazepam doses.? Plan Patient is a 51-year-old male with history of bipolar disorder, bouts of catatonia who presents from [facility] for worsening symptoms of depression and paranoia. 07/18/2022 patient is paranoid but with some insight; patient agrees to increasing Zyprexa; Zoloft was not restarted on admission but since patient has been on it with her recent increase will titrate again. 07/19 patient agrees to start ECT; EKG ordered and hospital consult ordered 07/20 little more clear minded following ECT to which pt agrees; continue tx plan 2/3 Continues to be improved day of ECT; today, without any paranoid thinking; will continue monitoring to see if improvement remains in-between ECT treatments 2/6 improved overall but still gets paranoid inbetween tx; continue inpt ect Plan CV (retracted 3 day on 07/19) Q 15 minute checks. ECT #1 07/20/22 ECT #2 07/22/22 ECT #3 07/25/22 ECT #4 07/27 NPO after midnight Continue Zyprexa 15 mg q.h.s. Increase Zyprexa to 5 mg daily Restart Zoloft at 50 mg; last week patient was titrated to 150 mg so will restart this time. Continue Ativan 1.5 mg t.i.d. - Encourage PO intake. Monitor for worsening mental state and development of catatonia. - Encourage group and milieu treatment. - consider ECT - Collaterals - Disposition planning. is HCP 07/24/2022: No changes to treatment plan as just started ECT last week Patient educated on: diagnosis and ECT Informed Consent: understands Reason for contiued inpatient stay Substantial Risk for: inability to function Time Spent With Patient Time: Total time managing care of this patient today ____ minutes.
[2022-07-25] MEDS: Milk of Magnesia 30 ML ORAL.SUSP PO (11:55)
[2022-07-25] MEDS: Docusate Sodium 100 MG CAPSULE PO (15:57)
[2022-07-25] MEDS: hydrOXYzine HCL 25 MG TABLET PO (19:48)
[2022-07-25] MEDS: OLANZapine 7.5 MG TABLET 15 MG PO (20:52)
[2022-07-25] MEDS: Atorvastatin Calcium 20 MG TABLET PO (20:53)
[2022-07-26 06:00] VITALS: BP 123/82; PULSE 99; RESP 18; O2SAT 97
--- NOTE | 2022-07-26 08:12 | P.PNPSI_ITS ---
Subjective Subjective Date of Service: 07/26/22 Reason For Visit: SI Interim History: Met with patient; discussed in teams Patient reports he is feeling overall good; anxiety is low and he feels ready to go home. Patient feels that he is mostly climbed out of this recent dysregulated episode. He plans to have ECT tomorrow, go home and then continue with ECT from home. Feels that medications are adequate and will discuss them with outpatient provider. Patient's mother discussed case with 7th grade social studies teacher and is able to drive him to and from treatments. Mental Status Exam Mental Status Exam Narrative: Patient Appearance:?Appropriate; Casual attire, glasses; adequate hygiene. Patient Orientation:?Person, Place and Situation Level of Consciousness:?Awake Patient Behavior: calm, cooperative, friendly Mood Description:?good Affect Description:? congruent; brighter Ability to Follow Directions: good Speech Pattern: normal rate, prosody, volume Delusions:none Perception: no AVH. Thought Process: goal oriented and logical Thought Content:?on treatment, discharged Judgment/insight:?intact Diagnostics Vital Signs (24Hr): Vital Signs - 24 hr 07/25/22 08:20 07/25/22 09:06 07/25/22 17:33 Temperature 97.9 F 96.9 F 97.3 F Pulse Rate 102 H 98 94 Respiratory Rate 18 20 16 Blood Pressure 139/98 H 121/78 125/85 Pulse Oximetry 93 95 Oxygen Delivery Method Room Air Room Air BMI result Body Mass Index 29.8 Labs 07/15/22 13:43 07/24/22 09:48 Labs: Laboratory Results - last 48 hr 07/24/22 07/25/22 09:48 06:09 Creatinine 0.92 Estim Creat Clear Calc 120.8 Estimated GFR > 60 POC Glucose 127 H Medications Medications Current Medications Acetaminophen (Acetaminophen 325 Mg Tablet) 650 mg PO Q6H PRN PRN Reason: Headache/Pain Mild Scale (1-3) Last Admin: 07/25/22 09:36 Dose: 650 mg Al Hydroxide/Mg Hydroxide (Magnesium Hydrox/Alum Hydrox 30 Ml Oral.Susp) 30 ml PO Q6H PRN PRN Reason: Heartburn/Nausea Atorvastatin Calcium (Atorvastatin Calcium 20 Mg Tablet) 20 mg PO BEDTIME [facility] Last Admin: 07/25/22 20:53 Dose: 20 mg Docusate Sodium (Docusate Sodium 100 Mg Capsule) 100 mg PO BID PRN PRN Reason: Constipation Empagliflozin (Empagliflozin 10 Mg Tablet) 10 mg PO DAILY [facility] Last Admin: 07/25/22 09:17 Dose: 10 mg Glipizide (Glipizide Xl 10 Mg Tab.Er.24) 10 mg PO DAILY [facility] Last Admin: 07/25/22 09:17 Dose: 10 mg Hydroxyzine HCl (Hydroxyzine Hcl 25 Mg Tablet) 25 mg PO Q6H PRN PRN Reason: Anxiety Last Admin: 07/25/22 19:48 Dose: 25 mg Lorazepam (Lorazepam 0.5 Mg Tablet) 1.5 mg PO TID [facility] Last Admin: 07/25/22 20:52 Dose: 1.5 mg Magnesium Hydroxide (Milk Of Magnesia 30 Ml Oral.Susp) 30 ml PO DAILY PRN PRN Reason: Constipation Last Admin: 07/25/22 11:55 Dose: 30 ml Metformin HCl (Metformin Hcl 1,000 Mg Tablet) 1,000 mg PO BIDWM [facility] Last Admin: 07/25/22 16:59 Dose: 1,000 mg Multivitamins/Vitamin C (Multivitamin Tablet) 1 tab PO DAILY [facility] Last Admin: 07/25/22 09:18 Dose: 1 tab Olanzapine (Olanzapine 7.5 Mg Tablet) 15 mg PO BEDTIME [facility] Last Admin: 07/25/22 20:52 Dose: 15 mg Olanzapine (Olanzapine 2.5 Mg Tablet) 2.5 mg PO TID PRN PRN Reason: psychosis and severe anxiety Last Admin: 07/21/22 10:34 Dose: 2.5 mg Olanzapine (Olanzapine 5 Mg Tablet) 5 mg PO DAILY [facility] Last Admin: 07/25/22 09:17 Dose: 5 mg Sertraline HCl (Sertraline Hcl 50 Mg Tablet) 50 mg PO DAILY [facility] Last Admin: 07/25/22 09:18 Dose: 50 mg Trazodone HCl (Trazodone Hcl 50 Mg Tablet) 50 mg PO BEDTIME PRN PRN Reason: Insomnia Last Admin: 07/22/22 20:37 Dose: 50 mg Allergies Allergies Allergy/AdvReac Type Severity Reaction Status Date / Time No Known Allergies Allergy Verified 04/19/21 07:03 [No Known Allergies*] Assessment & Plan Assessment & Plan (1) Bipolar affective, depress, sev w/ psych: Status: Acute Code(s): F31.5 - Bipolar disorder, current episode depressed, severe, with psychotic features Assessment and Plan: Patient presents to from [facility] after attending for a few days of [facility] with continuing worsening of symptoms.? ? He has been experiencing increased symptoms of depression and anxiety.? Precipitant is divorce, as well as plan to sell his house and moved to [facility] to live with his mother.? He has also been experiencing paranoia, thinking that others are talking about him. He denies any thought of harm to himself or others, no safety concerns at this time.? He does have a significant history of catatonia, with several hospitali zations.? He has had ECT in the past.? He states that his memory has not fully returned since ECT last year although seems to have responded in terms of his catatonia and depression. He appeared reticent, overwhelmed during interview.? He has recently had medication changes, including increase in olanzapine, sertraline, lorazepam doses.? Plan Patient is a 51-year-old male with history of bipolar disorder, bouts of catatonia who presents from [facility] for worsening symptoms of depression and paranoia. 07/18/2022 patient is paranoid but with some insight; patient agrees to increasing Zyprexa; Zoloft was not restarted on admission but since patient has been on it with her recent increase will titrate again. 07/19 patient agrees to start ECT; EKG ordered and hospital consult ordered 07/20 little more clear minded following ECT to which pt agrees; continue tx plan 2/3 Continues to be improved day of ECT; today, without any paranoid thinking; will continue monitoring to see if improvement remains in-between ECT treatments 07/25 improved overall but still gets paranoid inbetween tx; continue inpt ect 2 patient remains improved, no paranoia and no concerns about other patients on the unit, feeling good and ready to discharge. Patient has improved significantly and is clear minded, back to baseline. Patient has established s upport at home and with providers. Patient is not in imminent risk for harm to self or others and ready to return home and continue treatment as an outpatient. Plan CV (retracted 3 day on 07/19) Q 15 minute checks. ECT #1 07/20/22 ECT #2 07/22/22 ECT #3 07/25/22 ECT #4 07/27 NPO after midnight Continue Zyprexa 15 mg q.h.s. Increase Zyprexa to 5 mg daily Restart Zoloft at 50 mg; last week patient was titrated to 150 mg so will restart this time. Continue Ativan 1.5 mg t.i.d. - Encourage PO intake. Monitor for worsening mental state and development of catatonia. - Encourage group and milieu treatment. - consider ECT - Collaterals - Disposition planning. is HCP Patient educated on: diagnosis, medication risk/benefits, ECT and therapeutic strategies Informed Consent: understands Reason for contiued inpatient stay Substantial Risk for: stable for discharge Time Spent With Patient Time: Total time managing care of this patient today ____ minutes.
[2022-07-26] MEDS: OLANZapine 5 MG TABLET PO (08:20)
[2022-07-26] MEDS: Empagliflozin 10 MG TABLET PO (08:20)
[2022-07-26] MEDS: LORazepam 0.5 MG TABLET 1.5 MG PO ×3 (08:20→19:21)
[2022-07-26] MEDS: Multivitamin TABLET 1 TAB PO (08:20)
[2022-07-26] MEDS: Sertraline HCL 50 MG TABLET PO (08:20)
[2022-07-26] MEDS: glipiZIDE XL 10 MG TAB.ER.24 PO (08:20)
[2022-07-26] MEDS: metFORMIN HCl 1,000 MG TABLET 1000 MG PO ×2 (08:20→17:26)
--- NOTE | 2022-07-26 12:10 | HO.POSTANES ---
Post Anesthesia Evaluation Post Anesthesia Evaluation Vital Signs: Vital Signs Pulse Resp BP Pulse Ox O2 Del Method 07/26/22 06:00 99 18 123/82 97 Room Air Anesthesia: General Mental Status: Awake Pain Control: Satisfactory Nausea/Vomiting: None Hydration: Adequate Anesthesia-Related Issues: No Anes. Related Issues
[2022-07-26 16:30] VITALS: BP 118/83; PULSE 96; TEMP 36.3; O2SAT 95
[2022-07-26] MEDS: Atorvastatin Calcium 20 MG TABLET PO (19:21)
[2022-07-26] MEDS: OLANZapine 7.5 MG TABLET 15 MG PO (19:21)
[2022-07-27] VITALS (11 sets, daily range): BP systolic 115–137; BP diastolic 79–90; PULSE 91–102; RESP 13–20; TEMP 35.9–36.5; O2SAT 93–98
[2022-07-27 06:17] LABS: Glucose, Whole Blood 139 mg/dL (60-115)
--- NOTE | 2022-07-27 06:47 | HO.ANESPROP2 ---
[facility] Active Problems Active Problems: All Active Problems (Updated 07/19/22 @ 15:29 by Malou Carrillo NP) Bipolar affective, depress, sev w/ psych (Acute) MDD (major depressive disorder) (Acute) Bipolar disorder (Acute) Type 2 diabetes mellitus (Chronic) Catatonic excitement (Acute) Bipolar I disorder with catatonia (Acute) Bipolar 2 disorder, major depressive episode (Acute) Social anxiety disorder (Acute) Bipolar 1 disorder, mixed, full remission (Acute) Past Medical History Medical History (Updated 07/19/22 @ 15:29 by Malou Carrillo NP) Bipolar 1 disorder Depression Diabetes Hyperlipemia Inguinal hernia Sleep apnea Social anxiety disorder Family History Family history of problems with anesthesia: No Surgical History Surgical History (Updated 07/19/22 @ 16:08 by Malou Carrillo NP) H/O hernia repair History of Problems with Anesthesia: No Social History Social History Household Members: None Housing: Unknown / Unable to assess Do you presently have visiting nurse or other home services: No Unable to assess alcohol history related to: Unable to respond and Unknown Patient Tobacco Use Status: Never used Tobacco service: No Sexual orientation: Straight/Heterosexual Meds Allergies Allergy/AdvReac Type Severity Reaction Status Date / Time No Known Allergies Allergy Verified 04/19/21 07:03 [No Known Allergies*] Active Medications: Current Medications Acetaminophen (Acetaminophen 325 Mg Tablet) 650 mg PO Q6H PRN PRN Reason: Headache/Pain Mild Scale (1-3) Last Admin: 07/25/22 09:36 Dose: 650 mg Al Hydroxide/Mg Hydroxide (Magnesium Hydrox/Alum Hydrox 30 Ml Oral.Susp) 30 ml PO Q6H PRN PRN Reason: Heartburn/Nausea Atorvastatin Calcium (Atorvastatin Calcium 20 Mg Tablet) 20 mg PO BEDTIME [facility] Last Admin: 07/26/22 19:21 Dose: 20 mg Docusate Sodium (Docusate Sodium 100 Mg Capsule) 100 mg PO BID PRN PRN Reason: Constipation Empagliflozin (Empagliflozin 10 Mg Tablet) 10 mg PO DAILY [facility] Last Admin: 07/26/22 08:20 Dose: 10 mg Glipizide (Glipizide Xl 10 Mg Tab.Er.24) 10 mg PO DAILY [facility] Last Admin: 07/26/22 08:20 Dose: 10 mg Hydroxyzine HCl (Hydroxyzine Hcl 25 Mg Tablet) 25 mg PO Q6H PRN PRN Reason: Anxiety Last Admin: 07/25/22 19:48 Dose: 25 mg Lactated Ringer's (Lr) 1,000 mls @ 50 mls/hr IVCONT .Q20H [facility] Lorazepam (Lorazepam 0.5 Mg Tablet) 1.5 mg PO TID [facility] Last Admin: 07/26/22 19:21 Dose: 1.5 mg Magnesium Hydroxide (Milk Of Magnesia 30 Ml Oral.Susp) 30 ml PO DAILY PRN PRN Reason: Constipation Last Admin: 07/25/22 11:55 Dose: 30 ml Metformin HCl (Metformin Hcl 1,000 Mg Tablet) 1,000 mg PO BIDWM [facility] Last Admin: 07/26/22 17:26 Dose: 1,000 mg Multivitamins/Vitamin C (Multivitamin Tablet) 1 tab PO DAILY [facility] Last Admin: 07/26/22 08:20 Dose: 1 tab Olanzapine (Olanzapine 7.5 Mg Tablet) 15 mg PO BEDTIME [facility] Last Admin: 07/26/22 19:21 Dose: 15 mg Olanzapine (Olanzapine 2.5 Mg Tablet) 2.5 mg PO TID PRN PRN Reason: psychosis and severe anxiety Last Admin: 07/21/22 10:34 Dose: 2.5 mg Olanzapine (Olanzapine 5 Mg Tablet) 5 mg PO DAILY [facility] Last Admin: 07/26/22 08:20 Dose: 5 mg Sertraline HCl (Sertraline Hcl 50 Mg Tablet) 50 mg PO DAILY [facility] Last Admin: 07/26/22 08:20 Dose: 50 mg Trazodone HCl (Trazodone Hcl 50 Mg Tablet) 50 mg PO BEDTIME PRN PRN Reason: Insomnia Last Admin: 07/22/22 20:37 Dose: 50 mg Home Medications Medication Instructions Recorded Confirmed Last Taken Type multivitamin 1 tab PO DAILY 03/01/21 07/15/22 02/28/21 History Fish Oil 04/19/21 04/19/21 Unknown History ascorbic acid (vitamin C) 500 mg 04/19/21 04/19/21 07/15/22 History tablet (Vitamin C) cholecalciferol (vitamin D3) 50 04/19/21 07/15/22 History mcg (2,000 unit) tablet (Vitamin D3) lorazepam 1 mg tablet 1.5 mg PO TID 07/12/22 07/15/22 07/15/22 History Exam Exam Date and Time: July 27, 2022 0647 Height,Weight and Vital Signs: Height 6 ft 1 in Weight 102.6 kg Last Vital Signs Temp 96.7 F L 07/27/22 06:25 Pulse 91 07/27/22 06:25 Resp 20 07/27/22 06:25 BP 119/89 07/27/22 06:25 Pulse Ox 95 07/27/22 06:25 O2 Del Method 07/27/22 06:25 O2 Flow Rate 2 07/25/22 07:35 Pertinent Lab Results Pertinent Lab Results: Laboratory Tests 07/15/22 07/15/22 07/15/22 13:22 13:43 13:43 WBC RBC Hgb Hct MCV MCH MCHC RDW Plt Count MPV Immature Gran % (Auto) Neut % (Auto) Lymph % (Auto) [place] % (Auto) Eos % (Auto) Baso % (Auto) Lymph # (Auto) [place] # (Auto) Eos # (Auto) Baso # (Auto) Abs Immat Gran (auto) Absolute Neuts (auto) Absolute Nucleated RBC Nucleated RBC % (auto) Sodium 142 Potassium 4.0 Chloride 103 Carbon Dioxide 24 Anion Gap 19 BUN 16 Creatinine 1.07 Estim Creat Clear Calc 103.2 Estimated GFR > 60 POC Glucose Random Glucose 138 H Fasting Glucose Calcium 10.3 H D Total Bilirubin 0.5 AST 33 ALT 70 H Alkaline Phosphatase 106 Total Protein 7.2 Albumin 5.0 Triglycerides Cholesterol LDL Cholesterol, Calc HDL Cholesterol Salicylates < 5.0 L Urine Opiates Screen Urine Fentanyl Screen Acetaminophen < 17 Ur Barbiturates Screen Ur Phencyclidine Scrn Ur Amphetamines Screen U Benzodiazepines Scrn Urine Cocaine Screen U Marijuana (THC) Screen Ethyl Alcohol < 10 Influenza Type A (PCR) NEGATIVE Influenza Type B (PCR) NEGATIVE RSV RNA Qual (PCR) NEGATIVE SARS-CoV-2 RNA (RT-PCR) NEGATIVE 07/15/22 07/15/22 07/16/22 13:43 17:21 07:51 WBC 9.5 RBC 5.43 Hgb 15.1 Hct 45.4 MCV 83.6 MCH 27.8 MCHC 33.3 RDW 13.1 Plt Count 284 MPV 11.5 Immature Gran % (Auto) 0.4 Neut % (Auto) 68.3 Lymph % (Auto) 23.5 [place] % (Auto) 6.1 Eos % (Auto) 1.1 Baso % (Auto) 0.6 Lymph # (Auto) 2.2 [place] # (Auto) 0.6 Eos # (Auto) 0.1 Baso # (Auto) 0.1 Abs Immat Gran (auto) 0.04 H Absolute Neuts (auto) 6.5 Absolute Nucleated RBC 0.000 Nucleated RBC % (auto) 0.0 Sodium 142 Potassium 4.2 Chloride 104 Carbon Dioxide 26 Anion Gap 16 BUN 17 H Creatinine 0.99 Estim Creat Clear Calc 113.2 Estimated GFR > 60 POC Glucose Random Glucose Fasting Glucose 129 H Calcium 10.3 H Total Bilirubin 0.6 AST 32 ALT 69 H Alkaline Phosphatase 122 H Total Protein 7.3 Albumin 4.9 Triglycerides 67 Cholesterol 117 LDL Cholesterol, Calc 55 HDL Cholesterol 49 Salicylates Urine Opiates Screen Not Detected Urine Fentanyl Screen Not Detected Acetaminophen Ur Barbiturates Screen Not Detected Ur Phencyclidine Scrn Not Detected Ur Amphetamines Screen Not Detected U Benzodiazepines Scrn Not Detected Urine Cocaine Screen Not Detected U Marijuana (THC) Screen Not Detected Ethyl Alcohol Influenza Type A (PCR) Influenza Type B (PCR) RSV RNA Qual (PCR) SARS-CoV-2 RNA (RT-PCR) 07/16/22 07/17/22 07/17/22 21:50 08:17 13:07 WBC RBC Hgb Hct MCV MCH MCHC RDW Plt Count MPV Immature Gran % (Auto) Neut % (Auto) Lymph % (Auto) [place] % (Auto) Eos % (Auto) Baso % (Auto) Lymph # (Auto) [place] # (Auto) Eos # (Auto) Baso # (Auto) Abs Immat Gran (auto) Absolute Neuts (auto) Absolute Nucleated RBC Nucleated RBC % (auto) Sodium Potassium Chloride Carbon Dioxide Anion Gap BUN Creatinine Estim Creat Clear Calc Estimated GFR POC Glucose 102 137 H 75 Random Glucose Fasting Glucose Calcium Total Bilirubin AST ALT Alkaline Phosphatase Total Protein Albumin Triglycerides Cholesterol LDL Cholesterol, Calc HDL Cholesterol Salicylates Urine Opiates Screen Urine Fentanyl Screen Acetaminophen Ur Barbiturates Screen Ur Phencyclidine Scrn Ur Amphetamines Screen U Benzodiazepines Scrn Urine Cocaine Screen U Marijuana (THC) Screen Ethyl Alcohol Influenza Type A (PCR) Influenza Type B (PCR) RSV RNA Qual (PCR) SARS-CoV-2 RNA (RT-PCR) 07/17/22 07/18/22 07/18/22 20:48 08:30 20:48 WBC RBC Hgb Hct MCV MCH MCHC RDW Plt Count MPV Immature Gran % (Auto) Neut % (Auto) Lymph % (Auto) [place] % (Auto) Eos % (Auto) Baso % (Auto) Lymph # (Auto) [place] # (Auto) Eos # (Auto) Baso # (Auto) Abs Immat Gran (auto) Absolute Neuts (auto) Absolute Nucleated RBC Nucleated RBC % (auto) Sodium Potassium Chloride Carbon Dioxide Anion Gap BUN Creatinine Estim Creat Clear Calc Estimated GFR POC Glucose 116 H 131 H 128 H Random Glucose Fasting Glucose Calcium Total Bilirubin AST ALT Alkaline Phosphatase Total Protein Albumin Triglycerides Cholesterol LDL Cholesterol, Calc HDL Cholesterol Salicylates Urine Opiates Screen Urine Fentanyl Screen Acetaminophen Ur Barbiturates Screen Ur Phencyclidine Scrn Ur Amphetamines Screen U Benzodiazepines Scrn Urine Cocaine Screen U Marijuana (THC) Screen Ethyl Alcohol Influenza Type A (PCR) Influenza Type B (PCR) RSV RNA Qual (PCR) SARS-CoV-2 RNA (RT-PCR) 07/19/22 07/19/22 07/19/22 08:08 10:51 20:22 WBC RBC Hgb Hct MCV MCH MCHC RDW Plt Count MPV Immature Gran % (Auto) Neut % (Auto) Lymph % (Auto) [place] % (Auto) Eos % (Auto) Baso % (Auto) Lymph # (Auto) [place] # (Auto) Eos # (Auto) Baso # (Auto) Abs Immat Gran (auto) Absolute Neuts (auto) Absolute Nucleated RBC Nucleated RBC % (auto) Sodium Potassium Chloride Carbon Dioxide Anion Gap BUN Creatinine Estim Creat Clear Calc Estimated GFR POC Glucose 136 H 134 H Random Glucose Fasting Glucose Calcium Total Bilirubin AST ALT Alkaline Phosphatase Total Protein Albumin Triglycerides Cholesterol LDL Cholesterol, Calc HDL Cholesterol Salicylates Urine Opiates Screen Urine Fentanyl Screen Acetaminophen Ur Barbiturates Screen Ur Phencyclidine Scrn Ur Amphetamines Screen U Benzodiazepines Scrn Urine Cocaine Screen U Marijuana (THC) Screen Ethyl Alcohol Influenza Type A (PCR) NEGATIVE Influenza Type B (PCR) NEGATIVE RSV RNA Qual (PCR) NEGATIVE SARS-CoV-2 RNA (RT-PCR) NEGATIVE 07/20/22 07/20/22 07/22/22 21:35 22:14 06:58 WBC RBC Hgb Hct MCV MCH MCHC RDW Plt Count MPV Immature Gran % (Auto) Neut % (Auto) Lymph % (Auto) [place] % (Auto) Eos % (Auto) Baso % (Auto) Lymph # (Auto) [place] # (Auto) Eos # (Auto) Baso # (Auto) Abs Immat Gran (auto) Absolute Neuts (auto) Absolute Nucleated RBC Nucleated RBC % (auto) Sodium Potassium Chloride Carbon Dioxide Anion Gap BUN Creatinine Estim Creat Clear Calc Estimated GFR POC Glucose 73 85 140 H Random Glucose Fasting Glucose Calcium Total Bilirubin AST ALT Alkaline Phosphatase Total Protein Albumin Triglycerides Cholesterol LDL Cholesterol, Calc HDL Cholesterol Salicylates Urine Opiates Screen Urine Fentanyl Screen Acetaminophen Ur Barbiturates Screen Ur Phencyclidine Scrn Ur Amphetamines Screen U Benzodiazepines Scrn Urine Cocaine Screen U Marijuana (THC) Screen Ethyl Alcohol Influenza Type A (PCR) Influenza Type B (PCR) RSV RNA Qual (PCR) SARS-CoV-2 RNA (RT-PCR) 07/23/22 07/24/22 07/25/22 21:53 09:48 06:09 WBC RBC Hgb Hct MCV MCH MCHC RDW Plt Count MPV Immature Gran % (Auto) Neut % (Auto) Lymph % (Auto) [place] % (Auto) Eos % (Auto) Baso % (Auto) Lymph # (Auto) [place] # (Auto) Eos # (Auto) Baso # (Auto) Abs Immat Gran (auto) Absolute Neuts (auto) Absolute Nucleated RBC Nucleated RBC % (auto) Sodium Potassium Chloride Carbon Dioxide Anion Gap BUN Creatinine 0.92 Estim Creat Clear Calc 120.8 Estimated GFR > 60 POC Glucose 124 H 127 H Random Glucose Fasting Glucose Calcium Total Bilirubin AST ALT Alkaline Phosphatase Total Protein Albumin Triglycerides Cholesterol LDL Cholesterol, Calc HDL Cholesterol Salicylates Urine Opiates Screen Urine Fentanyl Screen Acetaminophen Ur Barbiturates Screen Ur Phencyclidine Scrn Ur Amphetamines Screen U Benzodiazepines Scrn Urine Cocaine Screen U Marijuana (THC) Screen Ethyl Alcohol Influenza Type A (PCR) Influenza Type B (PCR) RSV RNA Qual (PCR) SARS-CoV-2 RNA (RT-PCR) 07/27/22 06:12 WBC RBC Hgb Hct MCV MCH MCHC RDW Plt Count MPV Immature Gran % (Auto) Neut % (Auto) Lymph % (Auto) [place] % (Auto) Eos % (Auto) Baso % (Auto) Lymph # (Auto) [place] # (Auto) Eos # (Auto) Baso # (Auto) Abs Immat Gran (auto) Absolute Neuts (auto) Absolute Nucleated RBC Nucleated RBC % (auto) Sodium Potassium Chloride Carbon Dioxide Anion Gap BUN Creatinine Estim Creat Clear Calc Estimated GFR POC Glucose 139 H Random Glucose Fasting Glucose Calcium Total Bilirubin AST ALT Alkaline Phosphatase Total Protein Albumin Triglycerides Cholesterol LDL Cholesterol, Calc HDL Cholesterol Salicylates Urine Opiates Screen Urine Fentanyl Screen Acetaminophen Ur Barbiturates Screen Ur Phencyclidine Scrn Ur Amphetamines Screen U Benzodiazepines Scrn Urine Cocaine Screen U Marijuana (THC) Screen Ethyl Alcohol Influenza Type A (PCR) Influenza Type B (PCR) RSV RNA Qual (PCR) SARS-CoV-2 RNA (RT-PCR) Airway Mallampati Class: II TM Dist: >3cm Neck ROM: Full Heart: rrr Lungs: cta Assessment and Plan Assessment Anesthesia Assessment: Anesthesia Plan Discussed and Chart Reviewed Final Anesthetic Review Family History of Problems with Anesthesia: No History of Problems with Anesthesia: No NPO: Yes ASA Class: III Final Preanesthetic Review: No Changes in Pt Med Stat, Meds/Allgs Chart Reviewed and Consent Obtained/Reviewed Patient Risk: Intermediate Procedure Risk: Intermediate Anesthetic Plan Anesthetic Plan: GA Disposition: Standard PACU
--- NOTE | 2022-07-27 07:08 | MHC.SHP ---
Pre-Procedural Eval Section A Date of Service: 07/27/22 Changes since office visit: Yes Changes in Medication and Yes Patient answered all questions; No Cold of Flu in the past 2 weeks and No New Medical Problems The History & Physical has been completed within 30 days and I have reviewed it.: Yes Section B Chief Complaint: SI Allergies: Allergies Allergy/AdvReac Type Severity Reaction Status Date / Time No Known Allergies Allergy Verified 04/19/21 07:03 [No Known Allergies*] Plan I have reviewed the history and physical and performed a pertinent physical examination on my patient. No changes have occurred unless specified. Time Spent With Patient Time: Total time managing care of this patient today ____ minutes.
--- NOTE | 2022-07-27 07:09 | HO.ECTPROC ---
ECT Procedure Note Diagnosis/Treatment Date of Service: 07/27/22 Diagnosis: Major Depressive Disorder Previous ECT Date: 07/25/22 Current Treatment Number: 4 Treatment: Series Interval Clinical Notes: Or patient remains anxious and preoccupied but better able to process information less thought blocking less in the way of catastrophic thinking Time: Total time managing care of this patient today ____ minutes. ECT Settings Device: THYMATRON DGx Electrode Placement: Bitemporal Program/Pulse Width: 0.50 Energy Percent: 45 Seizure Duration By EEG (in seconds): 58 Medications Administration General Anesthetic: Etomidate (14) Muscle Relaxant: Succinylcholine (100) Ancillary Medications Analgesics: Torodol - Pre ECT (30) Anti-emetics: Zofran - Pre ECT Cardiovascular Medications: Glycopyrrolate (given post stimulation) Miscillaneous Medications: Propofol (30 post) and Flumazenil (50 mcg pre tx) Airway Management Airway Management: Bag Mask Ventilation Treatment Recommendations No Changes Recommended: No change Notes: if cognitive impairmrnt consuder bifrontal continue series will try and transition to outpatient Pt Tolerated Procedure w/o Issue: Yes
[2022-07-27] MEDS: Empagliflozin 10 MG TABLET PO (09:38)
[2022-07-27] MEDS: Sertraline HCL 50 MG TABLET PO (09:38)
[2022-07-27] MEDS: OLANZapine 5 MG TABLET PO (09:38)
[2022-07-27] MEDS: metFORMIN HCl 1,000 MG TABLET 1000 MG PO (09:38)
[2022-07-27] MEDS: glipiZIDE XL 10 MG TAB.ER.24 PO (09:38)
[2022-07-27] MEDS: Multivitamin TABLET 1 TAB PO (09:39)
[2022-07-27] MEDS: LORazepam 0.5 MG TABLET 1.5 MG PO (09:39)
--- NOTE | 2022-07-27 11:39 | P.DS_ITS ---
DS: Providers Provider Date of Service: 07/27/22 Date of admission: 07/15/22 18:38 Date of discharge: 07/27/22 Primary care physician: Talat Snow MD Attending physician on admission: Fredo Prieto Attending physician on discharge: Fredo Prieto DS: Diagnosis Discharge Diagnosis (1) Bipolar affective, depress, sev w/ psych: Status: Acute DS: Medications Discharge Medications Home Medications: Home Medications Medication Instructions Recorded Confirmed multivitamin 1 tab PO DAILY 03/01/21 07/15/22 Fish Oil 04/19/21 04/19/21 ascorbic acid (vitamin C) 500 mg 04/19/21 04/19/21 tablet (Vitamin C) cholecalciferol (vitamin D3) 50 04/19/21 mcg (2,000 unit) tablet (Vitamin D3) Previous Rx's Medication Instructions Recorded atorvastatin 20 mg tablet 20 mg PO BEDTIME 30 days #30 tabs 07/27/22 empagliflozin 10 mg tablet 10 mg PO QAM 30 days #30 tabs 07/27/22 (Jardiance) glipizide 10 mg tablet, extended 10 mg PO DAILY 30 days #30 tabs 07/27/22 release 24 hr lorazepam 1 mg tablet 1.5 mg PO TID 30 days #135 tabs 07/27/22 metformin 1,000 mg tablet 1,000 mg PO BID 30 days #60 tabs 07/27/22 olanzapine 15 mg tablet 15 mg PO BEDTIME 30 days #30 tabs 07/27/22 olanzapine 5 mg tablet 5 mg PO DAILY 30 days #30 tabs 07/27/22 sertraline 100 mg tablet 100 mg PO DAILY 30 days #30 tabs 07/27/22 Mental Status Exam Mental Status Exam Narrative: Patient Appearance:?Appropriate; Casual attire, glasses; good hygiene. Patient Orientation:?Person, Place and Situation Level of Consciousness:?Awake Patient Behavior: calm, cooperative, friendly Mood Description:?good Affect Description:? congruent; brighter Ability to Follow Directions: good Speech Pattern: normal rate, prosody, volume Delusions:none Perception: no AVH. Thought Process: goal oriented and logical Thought Content:?on treatment, discharged Judgment/insight:?intact Data Data Completed and Pending Completed studies during hospitalization [Text1]: 07/20/22 07/20/22 07/22/22 21:35 22:14 06:58 Creatinine Estim Creat Clear Calc Estimated GFR POC Glucose 73 85 140 H 07/23/22 07/24/22 07/25/22 21:53 09:48 06:09 Creatinine 0.92 Estim Creat Clear Calc 120.8 Estimated GFR > 60 POC Glucose 124 H 127 H 07/27/22 06:12 Creatinine Estim Creat Clear Calc Estimated GFR POC Glucose 139 H DS: Summary Hospital Course Hospital Course: HPI: Patient is a 51-year-old male with history of Bipolar disorder, history of catatonia requiring ECT, who now presents to from [facility] after attending for a few days of [facility] with continuing worsening of symptoms.? He has been experiencing increased symptoms of depression and anxiety with paranoid thinking.? Precipitant is life stressors of pending divorce, as well as plan to sell his house and moved to [facility] to live with his mother.? He has also been experiencing paranoia, thinking that others are talking negatively about him; some fear of others. He denies any thought of harm to himself or others, no safety concerns at this time.? Hospital course: On admission patient was anxious and paranoid however no catatonia present. Patient agreed to increasing Zyprexa and restarting Zoloft. Ativan was also increased. With increased Zyprexa patient started to improve some, with more logical and clear thinking, however he remained paranoid. Discussed case with team, patient and his mother who all agreed to start ECT which was affective. After several treatments patient at significantly improved, depression gone, anxiety under control and paranoia fully resolved. Patient felt ready for discharge and plan to continue ECT as an outpatient. Patient has the support of his mother, as well as his despite the divorce. He is returning to a stable environment where his mother will be able to drive him to and from ECT; patient also has outpatient services already established. Patient appropriate with peers and staff; he is demonstrating good behavioral and impulse control on the unit, attending to ADLs, out in the milieu and social, sleeping and eating well. He remains improved, no paranoia and no concerns about other patients on the unit, feeling good and ready to discharge.? Patient has improved significantly and is clear minded, back to baseline.? Patient is not in imminent risk for harm to self or others and ready to return home and continue treatment as an outpatient. Time spent discussing smoking cessation with patient: 3 to 10 minutes Status at Discharge Functional status at discharge: independent ambulation Overall status at discharge: patient is back to baseline Time Spent with Patient Time attestation: Total time managing care of this patient today ____ minutes. Time spent: Greater than 30 minutes Discharge Plan Discharge Anticipated Discharge Date/Time: 07/27/22 13:00 Patient Disposition: Home, Self-Care Discharge Diagnosis: Bipolar disorder I, recurrent, severe w/ catatonia, in full remission Referrals: [facility]: ECT treatment [Other] - 07/29/22 (ECT Treatment ) [facility]: ECT Treatment [Other] - 08/01/22 (ECT Treatment) Dr. Bjorn Davidson [Other] - 08/02/22 6:00 pm (Follow-up discharge appointment Patient appointment is by tele-health) Dr. Tj Rosado [Other] - 09/06/22 (Appointment with outpatient psychiatrist Appointment subject to scheduling change. Provider will reach out to you should this occur.) Talat Snow MD [Primary Care Provider] - 09/05/22 8:30 am (office will call us or call pt. with f/u appointment) Discharge Medications: New olanzapine 5 mg Tablet 5 mg PO DAILY 30 Days Qty: 30 0RF Continued multivitamin Tablet 1 tab PO DAILY atorvastatin 20 mg tablet 20 mg PO BEDTIME 30 Days Qty: 30 0RF glipizide 10 mg tablet extended release 24hr 10 mg PO DAILY 30 Days Qty: 30 0RF sertraline 100 mg tablet 100 mg PO DAILY 30 Days Qty: 30 0RF metformin 1,000 mg tablet 1,000 mg PO BID 30 Days Qty: 60 0RF olanzapine 15 mg tablet 15 mg PO BEDTIME 30 Days Qty: 30 0RF Jardiance 10 mg tablet 10 mg PO QAM 30 Days Qty: 30 0RF lorazepam 1 mg tablet 1.5 mg PO TID 30 Days Qty: 135 0RF ascorbic acid (vitamin C) [Vitamin C] 500 mg Tablet cholecalciferol (vitamin D3) [Vitamin D3] 50 mcg (2,000 unit) Tablet Fish Oil Discontinued olanzapine 2.5 mg tablet See Rx Instructions .ROUTE .COMPLEX Qty: 60 0RF Rx Instructions: Take 2.5 mg orally scheduled in morning, and 2.5mg orally as needed once daily for breakthrough paranoia. Discharge Orders: Discharge Order (Routine); Ordered 07/27/22 Ordered By: Fredo Prieto Diet: Regular diet Activity on Discharge: As tolerated Stand Alone Forms: Patient Portal Discharge page, Community Support Care Plan Goals: Maintain mood and safe behaviors Take medications as prescribed Practice coping skills Continue with outpatient providers and reach out to them as needed Health Concerns: Mood stability and behaviors Plan of Treatment: Follow up with your PCP, psychiatric provider and other outpatient providers regarding above concerns Take medications as prescribed Assessment: Risk assessment at time of discharge:? Patient was interviewed prior to manjeet addison and found to be fully oriented and without any SI or HI. Patient has insight and demonstrates good judgment in terms of wanting to pursue treatment. Patient is not in imminent risk of harm to self or others and has a safety plan that includes presenting to the closest ER or calling 911 if feeling unsafe.? Patient has been observed closely by nursing and unit staff throughout admission; patient has not engaged in any behaviors that suggest dangerousness to self or others and has demonstrated appropriate behaviors and impulse control Discharge Date/Time: 07/27/22 14:04
== END 2022-07-27 14:04 | disposition home or self-care (01) | DRG 753 ==
LOC: HO.ED 14:20 → HO.PM5 18:45
PROVIDERS: Physician Assistant Medical; Psychiatry & Neurology Psychiatry; Admitting Provider Psychiatry & Neurology Psychiatry; Emergency Provider Student in an Organized Health Care Education/Training Program; PCP Internal Medicine; Visit Provider Psychiatry & Neurology Psychiatry
PROC: GZB4ZZZ Other Electroconvulsive Therapy (ICD-10-PCS; CPT 90870; principal; 2022-07-20 07:30)
DX: F31.5 Bipolar disorder, current episode depressed, severe, with psychotic features (principal); R45.851 Suicidal ideations; F06.1 Catatonic disorder due to known physiological condition; E78.5 Hyperlipidemia, unspecified; G47.30 Sleep apnea, unspecified; F40.10 Social phobia, unspecified; Z20.822 Contact with and (suspected) exposure to COVID-19; Z79.84 Long term (current) use of oral hypoglycemic drugs; Z79.899 Other long term (current) drug therapy
CPT/HCPCS: 0241U; 36415; 80053; 80061; 80143; 80179; 80307; 82077; 82565; 82947; 85025; 90870; 93005; 99285; J0330; J1885; J2405; S9485

== ENCOUNTER 2022-07-15 14:15 | Outpatient (RCR) | payer BC, SELFPAY ==
[2022-07-12 12:17] VITALS: BMI 31.1
[2022-07-12 12:19] VITALS: BP 126/76; PULSE 100; TEMP 36.6
--- NOTE | 2022-07-12 13:05 | PC.ADMIT ---
Patient is a 51 year old male who was referred to [facility] by his psychiatrist Dr Rosado d/t patient struggling with increased depression and anxiety reporting multiple stressors including a divorce from his , work stresses, and moving out of his house. Patient has a dx of bipolar II disorder and a history of catatonia. Most recent hospitalization in February 2021. Patient is alert and oriented x4. Calm and cooperative. Presented with depressed mood and anxious affect. Denied SI or thoughts to harm himself. Report some paranoid thoughts of others whispering about him. Patient reports poor sleep and appetite. Patient reports he is taking his medications as prescribed. Reports recent increases in Sertraline and Olanzapine. Patient stated his brother and his soon to be ex whom he is currently living with help remind him to take his medications. Patient reports his mother is coming from [place] soon to visit with him for more support. Medications reconciled with patient and patient's pharmacy. Patient given a copy of his safety plan if needed.
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
--- NOTE | 2022-07-14 15:21 | HO.PHP ---
The clients case wqas reviewed and opened in clinical treatment team
--- NOTE | 2022-07-15 12:23 | P.PNPSP_ITS ---
Subjective Subjective Date of Service: 07/15/22 Reason For Visit: anxiety, depression Medical Problems Affecting Mental Status: No Interim History: Patient reports ?I am not doing well ?. Reports increased paranoia, free to leave the house. Believes people are talking about him behind his back. Reports suicidal ideation, states that it increases as the paranoia increases. Says no definite plan, but intent has been increasing. Believes he may need to get ECT again. Medication Compliance: Yes Side effects from medications: No Attending Groups: Yes Review of Systems Acute medical concerns: No Medical Review of Systems: unchanged Review of Systems Review of Systems Yes all other systems are reviewed and are negative Constitutional: Reports no additional constitutional complaints Mental Status Exam Mental Status Exam Narrative: Well-developed, well-nourished male, NAD. Appropriately dressed. Ambulation normal, posture normal. No tics or tremors, no abnormal movements. No SI/HI, no AH/VH. Paranoia per patient report. Patient Appearance: Well Grooomed Patient Orientation: Person, Place, Time and Situation Level of Consciousness: Appropriate and Alert Patient Behavior: Appropriate, Cooperative, Anxious and Good Eye Contact Mood Description: Depressed and Anxious Affect Description: Depressed and Anxious Patient Cognition Impaired: No Ability to Follow Directions: Good Speech Pattern: Clear, Appropriate and Soft-Spoken Memory Description: Episodic Impaired Hallucinations: None Delusions: Paranoid Ideation (Believes people are talking about him. States has increased. ) Thought Process: Rumination Thought Content: positive for Obsessional Thoughts and positive for Suicidal Ideation Depressive Symptoms: Increased Anxiety, Insomnia, Difficulty Sleeping, Loss of Int. in Activity, Feelings of Worthlessness, Hopelessness, Isolating- Friends/Family, Unhappiness, Increased Fatigue, Thoughts of /Suicide, Low Self Esteem, Loss of Energy and Difficulty Concentrating Judgement: Fair Diagnostics Vital Signs (24Hr): BMI result Body Mass Index 31.1 Assessment & Plan Assessment & Plan (1) Bipolar 2 disorder, major depressive episode: Status: Acute Code(s): F31.81 - Bipolar II disorder Assessment and Plan: Patient presents with increased symptoms of depression, anxiety. Reports increased paranoia, with suicidal ideation at this time. Has no definite plan, but states intent has increased since last visit. States he believes he needs to come into the hospital to receive ECT, before he progresses to a catatonic state again. We discussed increasing olanzapine, adding a 2.5 mg schedule dose in the morning, with a 2.5 p.r.n. dose during the day for breakthrough paranoia. He was in agreement with this. Discussed safety, he stated that he feels safe at this moment sitting with this provider, but states that overall his thoughts of SI are progressively worsening. At this time he is willing to be escorted over to our emergency department for crisis evaluation, with possible inpatient stay. (2) Social anxiety disorder: Status: Acute Code(s): F40.10 - Social phobia, unspecified Plan 1. Scheduled olanzapine 2.5 mg in a.m., 2.5 mg dose once daily p.r.n. for breakt hrough paranoia added. 2. Patient was scored over to our emergency department for crisis evaluation. Patient educated on: diagnosis, medication risk/benefits, ECT and therapeutic strategies Informed Consent: understands Reason for contiued partial hosp. stay Substantial Risk for: harm to self, inability to function and rapid decompensation Certification I certify that partial hospital treatment is medically necessary due to the symptoms and problems resulting from the patient's mental illness and the failure to treat the patient at the partial hospital level of care would likely result in the patient requiring inpatient psychiatric care which could not be prevented at a less intensive level of care. Total time managing care of this patient today ___30_ minutes. Discharge Plan Discharge Attending provider: Wes Leyva Medications: New olanzapine 2.5 mg tablet See Rx Instructions .ROUTE .COMPLEX Qty: 60 0RF Rx Instructions: Take 2.5 mg orally scheduled in morning, and 2.5mg orally as needed once daily for breakthrough paranoia. No Action multivitamin Tablet 1 tab PO DAILY atorvastatin 20 mg tablet 20 mg PO BEDTIME 30 Days Qty: 30 0RF glipizide 10 mg tablet extended release 24hr 10 mg PO DAILY 30 Days Qty: 30 0RF metformin 1,000 mg tablet 1,000 mg PO BID 30 Days Qty: 60 0RF Jardiance 10 mg tablet 10 mg PO QAM 30 Days Qty: 30 0RF lorazepam 1 mg tablet 1.5 mg PO TID ascorbic acid (vitamin C) [Vitamin C] 500 mg Tablet cholecalciferol (vitamin D3) [Vitamin D3] 50 mcg (2,000 unit) Tablet Fish Oil olanzapine 15 mg tablet 15 mg PO BEDTIME 30 Days Qty: 30 2RF sertraline 100 mg tablet 100 mg PO DAILY 30 Days Qty: 30 2RF
== END 2022-07-15 23:59 | disposition admitted as inpatient to this hospital (09) ==
LOC: HO.PHPA 14:15
PROVIDERS: Visit Provider Psychiatry & Neurology Psychiatry
DX: F31.81 Bipolar II disorder (principal); F40.10 Social phobia, unspecified; Z79.899 Other long term (current) drug therapy
CPT/HCPCS: 90791; 90853

== ENCOUNTER 2022-07-29 06:06 | Day surgery (SDC) | payer BC, SELFPAY ==
[2022-07-29] VITALS (8 sets, daily range): BP systolic 118–147; BP diastolic 64–81; PULSE 92–111; RESP 15–18; TEMP 36.1–36.6; O2SAT 94–97; BMI 29.7
[2022-07-29 06:30] LABS: Glucose, Whole Blood 148 mg/dL (60-115)
[2022-07-29 06:38] LABS: COVID-19 Test Negative (Negative); IDNOW Serial# 16C4AD1C
--- NOTE | 2022-07-29 06:43 | HO.ANESPROP2 ---
[facility] Active Problems Active Problems: All Active Problems (Updated 07/19/22 @ 15:29 by Malou Carrillo NP) Bipolar affective, depress, sev w/ psych (Acute) MDD (major depressive disorder) (Acute) Bipolar disorder (Acute) Type 2 diabetes mellitus (Chronic) Catatonic excitement (Acute) Bipolar I disorder with catatonia (Acute) Bipolar 2 disorder, major depressive episode (Acute) Social anxiety disorder (Acute) Bipolar 1 disorder, mixed, full remission (Acute) Past Medical History Medical History (Updated 07/19/22 @ 15:29 by Malou Carrillo NP) Bipolar 1 disorder Depression Diabetes Hyperlipemia Inguinal hernia Sleep apnea Social anxiety disorder Family History Family history of problems with anesthesia: No Surgical History Surgical History (Updated 07/19/22 @ 16:08 by Malou Carrillo NP) H/O hernia repair History of Problems with Anesthesia: No Social History Social History Household Members: None Housing: Unknown / Unable to assess Do you presently have visiting nurse or other home services: No Unable to assess alcohol history related to: Unable to respond and Unknown Patient Tobacco Use Status: Never used Tobacco Advance Directives: No Advance Directives Information Provided: Yes service: No Sexual orientation: Straight/Heterosexual Meds Allergies Allergy/AdvReac Type Severity Reaction Status Date / Time No Known Allergies Allergy Verified 04/19/21 07:03 [No Known Allergies*] Home Medications Medication Instructions Recorded Confirmed Last Taken Type multivitamin 1 tab PO DAILY 03/01/21 07/15/22 02/28/21 History Fish Oil 04/19/21 04/19/21 Unknown History ascorbic acid (vitamin C) 500 mg 04/19/21 04/19/21 07/15/22 History tablet (Vitamin C) cholecalciferol (vitamin D3) 50 04/19/21 07/15/22 History mcg (2,000 unit) tablet (Vitamin D3) Exam Exam Date and Time: July 29, 2022 0643 Height,Weight and Vital Signs: Height 6 ft 1 in Weight 102.058 kg Last Vital Signs Temp 96.9 F 07/29/22 06:30 Pulse 97 07/29/22 06:30 Resp 18 07/29/22 06:30 BP 126/81 07/29/22 06:30 Pulse Ox 94 07/29/22 06:30 O2 Del Method 07/29/22 06:30 Pertinent Lab Results Pertinent Lab Results: Laboratory Tests 07/29/22 07/29/22 06:12 06:27 POC Glucose 148 H COVID-19 (JUDITH) Negative COVID-19 Clin Com See Note Airway Mallampati Class: II TM Dist: >3cm Neck ROM: Full Heart: rrr Lungs: cta Assessment and Plan Final Anesthetic Review Family History of Problems with Anesthesia: No History of Problems with Anesthesia: No NPO: Yes ASA Class: III Final Preanesthetic Review: No Changes in Pt Med Stat, Meds/Allgs Chart Reviewed and Consent Obtained/Reviewed Patient Risk: Intermediate Procedure Risk: Intermediate Anesthetic Plan Anesthetic Plan: GA Disposition: Standard PACU
--- NOTE | 2022-07-29 07:09 | MHC.SHP ---
Pre-Procedural Eval Section A Date of Service: 07/29/22 Changes since office visit: Yes Changes in Medication and Yes Patient answered all questions; No Cold of Flu in the past 2 weeks and No New Medical Problems The History & Physical has been completed within 30 days and I have reviewed it.: Yes Section B Chief Complaint: Major depressive disorder, recurrent, Allergies: Allergies Allergy/AdvReac Type Severity Reaction Status Date / Time No Known Allergies Allergy Verified 04/19/21 07:03 [No Known Allergies*] Plan I have reviewed the history and physical and performed a pertinent physical examination on my patient. No changes have occurred unless specified. Time Spent With Patient Time: Total time managing care of this patient today ____ minutes.
--- NOTE | 2022-07-29 07:25 | HO.ECTPROC ---
ECT Procedure Note Diagnosis/Treatment Date of Service: 07/29/22 Diagnosis: Major Depressive Disorder Previous ECT Date: 07/27/22 Current Treatment Number: 5 Treatment: Series Interval Clinical Notes: pt home doing ok not psychotic better processing Time: Total time managing care of this patient today ____ minutes. ECT Settings Device: THYMATRON DGx Electrode Placement: Bitemporal Program/Pulse Width: 0.50 Energy Percent: 50 Seizure Duration By EEG (in seconds): 64 Medications Administration General Anesthetic: Etomidate (14) Muscle Relaxant: Succinylcholine (100) Ancillary Medications Analgesics: Torodol - Pre ECT (30) Anti-emetics: Zofran - Pre ECT Cardiovascular Medications: Glycopyrrolate (given post stimulation) Miscillaneous Medications: Propofol (30 post) and Flumazenil (50 mcg pre tx) Airway Management Airway Management: Bag Mask Ventilation Treatment Recommendations Electrode Placement: Bifrontal Notes: Which try changing to bifrontal continue series patient was confused postop would try and change from bitemporal to bifrontal Pt Tolerated Procedure w/o Issue: Yes
[2022-07-29] MEDS: LORazepam 1 MG TABLET PO (07:47)
== END 2022-07-29 08:44 | disposition home or self-care (01) ==
PROVIDERS: PCP Psychiatry & Neurology Psychiatry; Visit Provider Psychiatry & Neurology Psychiatry
PROC: (CPT 90870; principal; 2022-07-29 07:30)
DX: F33.9 Major depressive disorder, recurrent, unspecified (principal); F40.10 Social phobia, unspecified; E78.5 Hyperlipidemia, unspecified; E11.9 Type 2 diabetes mellitus without complications; G47.30 Sleep apnea, unspecified; Z79.84 Long term (current) use of oral hypoglycemic drugs; Z79.899 Other long term (current) drug therapy; Z20.822 Contact with and (suspected) exposure to COVID-19
CPT/HCPCS: 82947; 87635; 90870; J0330; J1885; J2405

== ENCOUNTER 2022-08-01 05:58 | Day surgery (SDC) | payer BC, SELFPAY ==
[2022-08-01] VITALS (7 sets, daily range): BP systolic 114–140; BP diastolic 77–83; PULSE 95–106; RESP 12–20; TEMP 36.2–36.6; O2SAT 93–99; BMI 29.7
[2022-08-01 06:36] LABS: Glucose, Whole Blood 132 mg/dL (60-115)
[2022-08-01 06:38] LABS: COVID-19 Test Negative (Negative); IDNOW Serial# 6674DD1D
--- NOTE | 2022-08-01 06:41 | HO.ANESPROP2 ---
[facility] Active Problems Active Problems: All Active Problems (Updated 07/19/22 @ 15:29 by Malou Carrillo NP) Bipolar affective, depress, sev w/ psych (Acute) MDD (major depressive disorder) (Acute) Bipolar disorder (Acute) Type 2 diabetes mellitus (Chronic) Catatonic excitement (Acute) Bipolar I disorder with catatonia (Acute) Bipolar 2 disorder, major depressive episode (Acute) Social anxiety disorder (Acute) Bipolar 1 disorder, mixed, full remission (Acute) Past Medical History Medical History (Updated 07/19/22 @ 15:29 by Malou Carrillo NP) Bipolar 1 disorder Depression Diabetes Hyperlipemia Inguinal hernia Sleep apnea Social anxiety disorder Family History Family history of problems with anesthesia: No Surgical History Surgical History (Updated 07/19/22 @ 16:08 by Malou Carrillo NP) H/O hernia repair History of Problems with Anesthesia: No Social History Social History Household Members: None Housing: Unknown / Unable to assess Do you presently have visiting nurse or other home services: No Unable to assess alcohol history related to: Unable to respond and Unknown Patient Tobacco Use Status: Never used Tobacco Advance Directives: No Advance Directives Information Provided: Yes service: No Sexual orientation: Straight/Heterosexual Meds Allergies Allergy/AdvReac Type Severity Reaction Status Date / Time No Known Allergies Allergy Verified 04/19/21 07:03 [No Known Allergies*] Home Medications Medication Instructions Recorded Confirmed Last Taken Type multivitamin 1 tab PO DAILY 03/01/21 07/15/22 02/28/21 History Fish Oil 04/19/21 04/19/21 Unknown History ascorbic acid (vitamin C) 500 mg 04/19/21 04/19/21 07/15/22 History tablet (Vitamin C) cholecalciferol (vitamin D3) 50 04/19/21 07/15/22 History mcg (2,000 unit) tablet (Vitamin D3) Exam Exam Date and Time: August 01, 2022 0641 Height,Weight and Vital Signs: Height 6 ft 1 in Weight 102.058 kg Last Vital Signs Temp 97.1 F 08/01/22 06:37 Pulse 95 08/01/22 06:37 Resp 20 08/01/22 06:37 BP 114/77 08/01/22 06:37 Pulse Ox 95 08/01/22 06:37 O2 Del Method 08/01/22 06:37 Pertinent Lab Results Pertinent Lab Results: Laboratory Tests 08/01/22 08/01/22 06:16 06:32 POC Glucose 132 H COVID-19 (JUDITH) Negative COVID-19 Clin Com See Note Airway Mallampati Class: II TM Dist: >3cm Neck ROM: Full Heart: rrr Lungs: cta Assessment and Plan Assessment Anesthesia Assessment: Anesthesia Plan Discussed and Chart Reviewed Final Anesthetic Review Family History of Problems with Anesthesia: No History of Problems with Anesthesia: No NPO: Yes ASA Class: III Final Preanesthetic Review: No Changes in Pt Med Stat, Meds/Allgs Chart Reviewed and Consent Obtained/Reviewed Patient Risk: Intermediate Procedure Risk: Intermediate Anesthetic Plan Anesthetic Plan: GA Disposition: Standard PACU
--- NOTE | 2022-08-01 07:01 | MHC.SHP ---
Pre-Procedural Eval Section A Date of Service: 08/01/22 The patient is an INPATIENT: No Changes since office visit: No Cold of Flu in the past 2 weeks, No New Medical Problems, No Changes in Medication and No Patient answered all questions The History & Physical has been completed within 30 days and I have reviewed it.: Yes Section B Chief Complaint: Major depressive disorder, recurrent, Allergies: Allergies Allergy/AdvReac Type Severity Reaction Status Date / Time No Known Allergies Allergy Verified 04/19/21 07:03 [No Known Allergies*] Plan I have reviewed the history and physical and performed a pertinent physical examination on my patient. No changes have occurred unless specified. Time Spent With Patient Time: Total time managing care of this patient today ____ minutes.
--- NOTE | 2022-08-01 07:18 | HO.ECTPROC ---
ECT Procedure Note Diagnosis/Treatment Date of Service: 08/01/22 Diagnosis: Bipolar disorder Previous ECT Date: 07/29/22 Current Treatment Number: 6 Treatment: Series Interval Clinical Notes: The patient reported improvment of mood, he was already discharged last Monday to his home. He can't remember confusion with the last ECT. We changed to bifrontal as per last ECT suggestion. Time: Total time managing care of this patient today __30__ minutes. ECT Settings Device: THYMATRON DGx Electrode Placement: Bifrontal Program/Pulse Width: 0.50 Energy Percent: 50 Seizure Duration By EEG (in seconds): 59 By Motor Observation (in seconds): 31 Medications Administration General Anesthetic: Etomidate (14) Muscle Relaxant: Succinylcholine (100) Ancillary Medications Analgesics: Torodol - Pre ECT Anti-emetics: Zofran - Pre ECT Cardiovascular Medications: Glycopyrrolate Miscillaneous Medications: Propofol Airway Management Airway Management: Bag Mask Ventilation Treatment Recommendations No Changes Recommended: No change Pt Tolerated Procedure w/o Issue: Yes
== END 2022-08-01 08:47 | disposition home or self-care (01) ==
PROVIDERS: PCP Internal Medicine; Visit Provider Psychiatry & Neurology Psychiatry
PROC: (CPT 90870; principal; 2022-08-01 07:00)
DX: F33.9 Major depressive disorder, recurrent, unspecified (principal); F40.10 Social phobia, unspecified; E87.5 Hyperkalemia; E11.9 Type 2 diabetes mellitus without complications; G47.30 Sleep apnea, unspecified; Z79.84 Long term (current) use of oral hypoglycemic drugs; Z79.899 Other long term (current) drug therapy; Z20.822 Contact with and (suspected) exposure to COVID-19
CPT/HCPCS: 82947; 87635; 90870; J0330; J1885; J2405

== ENCOUNTER → 2022-09-06 14:57 | Outpatient (BNVA) | payer OTHER, SELFPAY | PROVIDERS: PCP Internal Medicine; Visit Provider Psychiatry & Neurology Psychiatry | DX: Z13.89 Encounter for screening for other disorder (principal) ==

== ENCOUNTER → 2022-10-21 11:25 | Outpatient (BNVA) | payer OTHER, SELFPAY | PROVIDERS: PCP Internal Medicine; Visit Provider Psychiatry & Neurology Psychiatry ==

== ENCOUNTER → 2022-11-29 15:04 | Outpatient (BNVA) | payer OTHER, SELFPAY | PROVIDERS: PCP Internal Medicine; Visit Provider Psychiatry & Neurology Psychiatry ==

== ENCOUNTER 2023-01-27 18:21 | Outpatient (AMB) | payer OTHER, SELFPAY ==
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
--- OUTSIDE RECORDS SUMMARY | 2023-01-27 18:23 | XMS_ITS | Continuity of Care Document ---
Author Name Unknown Organization [facility] [place] [address] [place] Address [address] [place] [address]- Care Team Providers Care Model Engine Mechanic Name Role Phone Gwendolyn SELF, Talat Morales Primary Care Physician [phone] [facility]16[facility]22 - 12/16/22 [facility] Adult [address] [place] [address]- Allergies, Adverse Reactions, Alerts No Known Allergies Immunizations Given and Recorded Vaccine Date Status Refusal Reason zoster vaccine, inactivated 09/16/22 Recorded zoster vaccine, inactivated 05/07/22 Recorded [id number] bivalent booster vax 05/07/22 Recorded influenza virus vaccine, inactivated 03/22/22 Von rded influenza virus vaccine, inactivated 1 04/02/21 Gi vivian influenza virus vaccine, inactivated 03/11/20 Give n influenza virus vaccine, inactivated 03/26/19 Give n influenza virus vaccine, inactivated 03/14/18 Give n influenza virus vaccine, inactivated 04/05/17 Give n influenza virus vaccine, inactivated 03/29/16 Give n influenza virus vaccine, inactivated 03/18/15 Give n influenza virus vaccine, inactivated 03/19/14 Give n influenza virus vaccine, inactivated 2 03/06/13 Gi vivian SARS-CoV-2 (COVID-19) mRNA-1273 vaccine 04/15/21 R ecorded SARS-CoV-2 (COVID-19) mRNA-1273 vaccine 08/10/20 R ecorded SARS-CoV-2 (COVID-19) mRNA-1273 vaccine 07/13/20 R ecorded tetanus/diphtheria/pertussis, acel(Tdap) 09/18/14 Given hepatitis B adult vaccine 10/22/12 Given Pneumococcal Vacc (oldterm) 05/24/12 Given Hepatitis B Vaccine (old term) 05/24/12 Given Hepatitis B Vaccine (old term) 04/24/12 Given Hepatitis A Adult Vaccine 3 04/24/12 Given FluLaval (oldterm) 4 02/28/12 Given Tetanus Toxoid 02/27/05 Given 1Result Comment: [facility]# ON THE [address] 32695-202-76 [facility] 3Admin Note: [employer] 4Admin Note: [employer] [facility] Medications aspirin 81 mg oral tablet 1 tablet = 81 mg, By Mouth, Daily, # 30 tablet, 0 Refills, Maintenance, 12/04/13 8:53:04, Tablet Start Date: 12/04/13 Status: Ordered atorvastatin 20 mg oral tablet 1 tablet, By Mouth, Daily, # 30 tablet, 5 Refills, 05/30/22 7:04:00 EST, [id number], 184, cm, 05/02/22 12:45:00 EST, Height Start Date: 05/30/22 Status: Ordered Durable Medical Equipment ASV EPAP 8, mn PS 3, max PS 10, Maintenance, Reliable Respiratory FFM, 04/29/18 14:02:53 EST, Compound Start Date: 04/29/18 Status: Ordered Fish Oil 1200 mg oral capsule 1 capsule = 1,200 mg, By Mouth, 2 times a day, 0 Refills, Maintenance, 09/01/17 15:01:15 Start Date: 09/01/17 Status: Ordered Freestyle Lite Lancets See Instructions, # 200 each, Refills 5, Tot. Refills 5, Maintenance, use as directed for Type II Diabetes Mellitus, 250.00 TEST UP TO 3 TIMES DAILY, 09/18/14 8:14:15, Compound Start Date: 09/18/14 Stop Date: 03/17/15 Status: Ordered Freestyle Lite Monitor See Instructions, # 1 each, Maintenance, Please check blood sugars as directed for new onset Diabetes Type II, 250.00, 11/29/13 16:56:15, Compound Start Date: 11/29/13 Status: Ordered Freestyle Lite Test Strips See Instructions, # 100 each, Refills 11, Tot. Refills 11, Maintenance, TEST BS BID E11.9, 06/22/1812:00:37, Compound Start Date: 06/22/17 Stop Date: 07/22/17 Status: Ordered glipiZIDE 10 mg oral tablet, extended release 1 tablet, By Mouth, Daily, # 30 tablet, 5 Refills, Maintenance, 11/16/22 10:14:00 EDT, [facility][id number], 184, cm, 09/05/22 8:32:00 EDT, Height Start Date: 11/16/22 Status: Ordered Jardiance 10 mg oral tablet 1 tablet, By Mouth, Daily in AM, # 90 tablet, 1 Refills, Maintenance, 07/11/22 19:31:00 EST, [facility]ORE [id number], 184, cm, 05/02/22 12:45:00 EST, Height Start Date: 07/11/22 Status: Ordered LORazepam 0.5 mg oral tablet 1.5 tablet = 0.75 mg, By Mouth, 3 times a day, 0 Refills, Maintenance, 07/28/22 14:26:00 EST, Tablet, Partial fill upon patient request if the prescription is for a schedule II opioid drug. Start Date: 07/28/22 Status: Ordered metFORMIN 1000 mg oral tablet 1 tablet, By Mouth, 2 times a day, # 60 tablet, 5 Refills, Maintenance, 11/16/22 10:10:00 EDT, [facility]/pharmacy #[id number], 184, cm, 09/05/22 8:32:00 EDT, Height Start Date: 11/16/22 Status: Ordered Multivitamin Daily, 0 Refills, Maintenance, 09/01/17 15:01:51 Start Date: 09/01/17 Status: Ordered Olanzapine 5 mg tablet See Instructions, 5 mg in the morning, 15 mg at night., Refills 0, Maintenance, 09/05/22 8:38:00 EDT, Instructions Replace Required Details, Partial fill upon patient request if the prescription is for a schedule II opioid drug. Start Date: 09/05/22 Status: Ordered sertraline 50 mg oral tablet 2 tablet = 100 mg, By Mouth, Daily, # 30 tablet, 0 Refills, Maintenance, 07/07/21 8:36:00 EST, Tablet, Partial fill upon patient request if the prescription is for a schedule II opioid drug. Start Date: 07/07/21 Status: Ordered Vitamin D3 oral tablet = 4,000 units, By Mouth, Daily, 0 Refills, Maintenance, 09/01/17 15:01:06 Start Date: 09/01/17 Status: Ordered Problem List Condition Confirmation Course Effective Dates Status Health Status Informant Abnormal liver function tests 1 Confirmed Active Affective disorder, psychotic Confirmed Active Anemia Confirmed Active Anxiety Confirmed Active Bipolar disorder Confirmed Active Obesity (BMI 30-39.9) Confirmed Active CSA (central sleep apnea) Confirmed Active Diastolic dysfunction Confirmed Active Abnormal EKG 2 Confirmed Active Extrapyramidal disorder 3 Confirmed Active Family history of colon cancer in father Confirmed Active History of psychosis Confirmed Active Hypercholesterolemia Confirmed Active Colon polyp, hyperplastic Confirmed 10/08/21 Active IBS (irritable bowel syndrome) Confirmed Active Obese class I Confirmed Active Obstructive sleep apnea Confirmed Active Prostatitis 4 Confirmed Active Prostatitis, chronic Confirmed Active Depression, major, recurrent, in partial remission Confirmed Active Snoring Confirmed Active Diabetes mellitus type 2, uncontrolled, without complications Confirmed Active 1lft w/u negative 2011, u/s abdomen fatty infiltration 2Abnormal EKG 2016 done secondary to psychiatric admission. Echocardiogram without significant structural heart disease. Exercise stress test negative for reversible ischemia. 3secondary to Risperdal 4Patient with occasional prostatitis. Patient sees Dr. Suarez urology. Social History Social History Type Response Smoking Status Never smoker entered on: 09/18/14 Sex Patient Care team information Care Team Personnel Name: Talat Snow MD Position: [facility] Physician - Primary Care Member Role: PCP Address: Address: [address] [place] [address]- Care Team Related Persons Name: CARIN HONG Address: home [address]
--- OUTSIDE RECORDS SUMMARY | 2023-01-27 18:23 | XMS_ITS | Continuity of Care Document ---
Author Name Unknown Organization [facility] [address] lt Address [address] [place] [address]- Care Team Providers Care Fundraising Manager Name Role Phone Gwendolyn SELF, Talat Morales Primary Care Physician [facility]): [facility]22 - 12/16/22 [facility] Adult [address] [place] [address]- Allergies, Adverse Reactions, Alerts No Known Allergies Immunizations Given and Recorded Vaccine Date Status Refusal Reason zoster vaccine, inactivated 09/16/22 Recorded zoster vaccine, inactivated 05/07/22 Recorded [id number] bivalent booster vax 05/07/22 Recorded influenza virus [...] Given Tetanus Toxoid 02/27/05 Given 1Result Comment: [facility]# ON THE [address] [id number] 2[facility] 3Admin Note: [employer] 4Admin Note: [employer] [facility] Medications aspirin 81 mg oral tablet 1 [...] tablet, 5 Refills, Maintenance, 11/16/22 10:14:00 EDT, [facility]/pharmacy#[id number], 184, cm, 09/05/22 8:32:00 EDT, Height Start Date: 11/16/22 Status: Ordered Jardiance 10 mg oral tablet 1 tablet, By Mouth, Daily in AM, # 90 tablet, 1 Refills, Maintenance, 07/11/22 19:31:00 EST, [facility] STORE [id number], 184, cm, 05/02/22 12:45:00 EST, Height Start [...] tablet, 5 Refills, Maintenance, 11/16/22 10:10:00 EDT, [facility]/pharmacy #[id number], 184, cm, 09/05/22 8:32:00 EDT, Height [...] team information Care Team Personnel Name: Talat nSow MD Position: S Physician - Primary Care Member Role: PCP Address: Address: [address] [place] [address]- Care Team Related Persons Name: CARIN HONG Address: home [address]
--- OUTSIDE RECORDS SUMMARY | 2023-01-27 18:23 | XMS_ITS | Continuity of Care Document ---
Author Name Unknown Organization [facility] J[facility] lt Address [address] [place] [address]- Care Team Providers Care Dipper And Drier Name Role Phone Gwendolyn SELF, Talat Morales Primary Care Physician [facility](s): 11/24/22 - 12/24/22 [facility] Adult [address] [place] [address]- Allergies, Adverse Reactions, Alerts No Known Allergies Immunizations Given and Recorded Vaccine Date Status Refusal Reason zoster vaccine, inactivated 09/16/22 Recorded zoster vaccine, inactivated 05/07/22 Recorded [id number] bivalent booster vax 05/07/22 Recorded influenza virus [...] Given Tetanus Toxoid 02/27/05 Given 1Result Comment: [facility]# ON THE [address] 95382-587-56 2[facility] 3Admin Note: [employer] 4Admin Note: [employer] [facility] Medications aspirin 81 mg oral tablet 1 tablet = 81 mg, By Mouth, Daily, # 30 tablet, 0 Refills, Maintenance, 12/04/13 8:53:04, Tablet Start Date: 12/04/13 Status: Ordered atorvastatin 20 mg oral tablet See Instructions, TAKE 1 TABLET BY MOUTH DAILY., # 30 tablet, 5 Refills, Maintenance, 12/24/22 21:44:00 EDT[id number], 184, cm, 09/05/22 8:32:00 EDT, Height Start Date: 12/24/22 Status: Ordered Durable Medical Equipment ASV EPAP [...] tablet, 5 Refills, Maintenance, 11/16/22 10:14:00 EDT, [facility]/pharmacy#[id number], 184, cm, 09/05/22 8:32:00 EDT, Height Start Date: 11/16/22 Status: Ordered Jardiance 10 mg oral tablet 1 tablet, By Mouth, Daily in AM, # 90 tablet, 1 Refills, Maintenance, 07/11/22 19:31:00 EST, [facility] STORE [id number], 184, cm, 05/02/22 12:45:00 EST, Height Start [...] tablet, 5 Refills, Maintenance, 11/16/22 10:10:00 EDT, [facility]/pharmacy #[id number], 184, cm, 09/05/22 8:32:00 EDT, Height [...] Care team information Care Team Personnel Name: Gwendolyn SELF, Talat Morales Position: [facility] Physician - Primary Care Member Role: PCP Address: Address: [address] [place] [id number]- Care Team Related Persons Name: CARIN HONG Address: home [address]
== END 2023-01-27 18:23 | disposition home or self-care (01) ==
LOC: HO.HOP 18:21
PROVIDERS: PCP Internal Medicine; Visit Provider Psychiatry & Neurology Psychiatry
DX: F41.1 Generalized anxiety disorder (principal); F40.10 Social phobia, unspecified; F31.78 Bipolar disorder, in full remission, most recent episode mixed
CPT/HCPCS: 99214

== ENCOUNTER → 2023-01-27 18:21 | Outpatient (BNVA) | payer OTHER, SELFPAY | PROVIDERS: PCP Internal Medicine; Visit Provider Psychiatry & Neurology Psychiatry ==

== ENCOUNTER 2023-03-16 13:23 | Outpatient (AMB) | payer OTHER, SELFPAY ==
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
== END 2023-03-16 16:10 | disposition home or self-care (01) ==
LOC: HO.HOP 13:23
PROVIDERS: PCP Internal Medicine; Visit Provider Psychiatry & Neurology Psychiatry
DX: F31.78 Bipolar disorder, in full remission, most recent episode mixed (principal); E11.9 Type 2 diabetes mellitus without complications
CPT/HCPCS: 90833; 99213

== ENCOUNTER → 2023-03-16 13:23 | Outpatient (BNVA) | payer OTHER, SELFPAY | PROVIDERS: PCP Internal Medicine; Visit Provider Psychiatry & Neurology Psychiatry ==

== ENCOUNTER 2023-05-01 10:32 | Outpatient (AMB) | payer OTHER, SELFPAY ==
[2023-05-01 10:51] VITALS: BP 122/72; PULSE 91; O2SAT 95; BMI 32.4
--- NOTE | 2023-05-01 10:51 | HO.NEPHOV_ITS ---
HPI HPI Comments History of Present Illness Details 52-year-old man with a history of longst anding diabetes mellitus and bipolar disorder with history mild chronic kidney disease He is here for annual follow-up. Recent A1c was 6 point and person. He has no significant proteinuria. Serum creatinine stable is 1.0 mg/dL. He has continued Jardiance amongst other medications. He has RONY and uses CPAP regularly. [facility] Medical History (Updated 11/23/22 @ 08:17 by Tj Rosado MD) Generalized anxiety disorder MDD (major depressive disorder) Inguinal hernia Sleep apnea Hyperlipemia Social anxiety disorder Bipolar 1 disorder Depression Diabetes Surgical History H/O hernia repair Social History Household Members: None Housing: Unknown / Unable to assess Do you presently have visiting nurse or other home services: No Unable to assess alcohol history related to: Unable to respond and Unknown Patient Tobacco Use Status: Never used Tobacco service: No Sexual orientation: Straight/Heterosexual Vital Signs 05/01/23 10:51 Height 6 ft 1 in Weight 245 lb 6 oz BMI 32.4 BP 122/72 Blood Pressure Location Lt brachial Position Sitting Pulse 91 Pulse Source Pulse Oximeter Pulse Oximetry (%) 95 Oxygen Delivery Method Room Air Physical Exam Vital Signs: Last Vital Signs Pulse 91 05/01/23 10:51 BP 122/72 05/01/23 10:51 Pulse Ox 95 05/01/23 10:51 Oxygen Delivery Method Room Air 05/01/23 10:51 BMI result Body Mass Index 32.4 Const General: comfortable Nutritional Appearance: well nourished Orientation/consciousness: patient oriented x3 HEENT Head: No normal to inspection Mouth: moist mucous membranes Neck Neck: Yes supple and Yes no JVD Resp Auscultation: clear to auscultation bilaterally, no rales and rub present Cardio Jugular venous distension: no JVD Palpation: no palpable S3 and no palpable S4 Heart sounds: no rubs GI Palpation (GI): Soft to palpation and nontender Percussion: No Fluid wave present General: Yes no CVA tenderness Back/Spine/Pelvis Back: no CVA tenderness Skin General skin exam: no rashes or lesions noted Neuro General: patient oriented x3 Extrem General: Yes no pedal edema and No clubbing Results Reviewed Results Reviewed: Results from [facility] was reviewed. As of 03/15/23 serum creatinine 1.0. Hemoglobin A1c 6.9% No significant proteinuria with a urine protein creatinine ratio 0.12 Assessment & Plan Assessment & Plan (1) Type 2 diabetes mellitus: Code(s): E11.9 - Type 2 diabetes mellitus without complications Plan: Anthony has mild CKD in a setting of longstanding diabetes mellitus. At present renal function stable with creatinine 1.0. Goal is to slow the progression of renal disease. Hemoglobin A1c should be < 7% Continue Jardiance for cardiorenal protection. Blood pressure is well controlled. Increased interest and low-sodium diet. no changes to his med today. (2) Chronic Kidney Disease: Code(s): N18.9 - Chronic kidney disease, unspecified Coding Level of Care Code Est Pt Level 3 (68800) Diagnoses Type 2 diabetes mellitus E11.9 Chronic Kidney Disease N18.9
== END 2023-05-01 11:01 | disposition home or self-care (01) ==
PROVIDERS: PCP Internal Medicine; Visit Provider Internal Medicine Hypertension Specialist
DX: E11.22 Type 2 diabetes mellitus with diabetic chronic kidney disease (principal); N18.2 Chronic kidney disease, stage 2 (mild)
CPT/HCPCS: 99213

== ENCOUNTER → 2023-05-01 10:32 | Outpatient (BNVA) | payer OTHER, SELFPAY | PROVIDERS: PCP Internal Medicine; Visit Provider Internal Medicine Hypertension Specialist ==

== ENCOUNTER 2023-06-05 11:36 | Outpatient (AMB) | payer OTHER, SELFPAY ==
--- OUTSIDE RECORDS SUMMARY | 2023-06-05 11:38 | XMS_ITS | Continuity of Care Document ---
Author Name Unknown Organization [facility] Surendra Jd lt Address [address] [place] [address]- Care Team Providers Care Call Worker Person Name Role Phone Talat Snow MD Primary Care Physician [phone] Encounter [facility] Date(s): 03/16/23 - 03/23/23 [facility] Adult [address] [place] [address]- Attending Physician: Talat Snow MD Allergies, Adverse Reactions, Alerts No Known Allergies Immunizations Given and Recorded Vaccine Date Status Refusal Reason pneumococcal 20-valent conjugate vaccine 03/17/23 Given influenza virus vaccine, inactivated 03/17/23 Give n influenza virus vaccine, inactivated 03/22/22 Von rded [...] virus vaccine, inactivated 2 03/06/13 Gi vivian zoster vaccine, inactivated 09/16/22 Recorded zoster vaccine, inactivated 05/07/22 Recorded [id number] bivalent booster vax 05/07/22 Recorded SARS-CoV-2 (COVID-19) mRNA-1273 vaccine 04/15/21 R ecorded [...] Given Tetanus Toxoid 02/27/05 Given 1Result Comment: [facility]# [address] [facility] [address] [phone] 2[facility] 3Admin Note: [facility] 4Admin Note: [facility] Medications aspirin 81 mg oral tablet 1 tablet = 81 mg, By Mouth, Daily, # 30 tablet, 0 Refills, Maintenance, 12/04/13 8:53:04, Tablet Start Date: 12/04/13 Status: Ordered atorvastatin 20 mg oral tablet See Instructions, TAKE 1 TABLET BY MOUTH DAILY., # 30 tablet, 5 Refills, Maintenance, 12/24/22 21:44:00 EDT, [id number], 184, cm, 09/05/22 8:32:00 EDT, Height Start [...] release 1 tablet, By Mouth, Daily, # 90 tablet, 3 Refills, Maintenance, 03/17/23 10:39:00 EDT, [facility]/pharmacy#[id number], 184, cm, 03/16/23 9:50:00 EDT, Height Start Date: 03/17/23 Stop Date: 03/11/24 Status: Ordered Jardiance 10 mg oral tablet 1 tablet, By Mouth, Daily in AM, # 90 tablet, 1 Refills, Maintenance, 01/10/23 21:39:00 EDT, [facility]/pharmacy #[id number], 184, cm, 09/05/22 8:32:00 EDT, Height Start Date: 01/10/23 Status: Ordered LORazepam 0.5 mg oral tablet See Instructions, 1 tablet by mouth in the morning, 1 tablet by mouth in the afternoon, 1-1/2 tablets by mouth at night., 0 Refills, Maintenance, 07/28/22 14:26:00 EST, Tablet, Partial fill upon patient request if the prescription is for a schedule II... Start Date: 07/28/22 Status: Ordered metFORMIN 1000 mg oral tablet 1 tablet, By Mouth, 2 times a day, # 180 tablet, 3 Refills, Maintenance, 03/17/23 10:39:00 EDT, [facility]/pharmacy #[id number], 184, cm, 03/16/23 9:50:00 EDT, Height Start Date: 03/17/23 Status: Ordered Multivitamin Daily, 0 Refills, Maintenance, 09/01/17 15:01:51 Start Date: 09/01/17 Status: Ordered Olanzapine 5 mg tablet See Instructions, 10 mg at night, Refills 0, Maintenance, 09/05/22 8:38:00 EDT, Instructions [...] occasional prostatitis. Patient sees Dr. Suarez urology. Vital Signs Most recent to oldest [Reference Range]: 1 Height 184 cm (03/16/23 9:50 AM) Weight 111.5 kg (03/16/23 9:50 AM) Oxygen Saturation [94-100 %] 64 % *L* (03/16/23 9:50 AM) Pulse Rate [55-90 bpm] 91 bpm *H* (03/16/23 9:50 AM) Body Mass Index [18.5-24.99 kg/m2] 32.93 kg/m2 *>HHI* (03/16/23 9:50 AM) Blood Pressure [90-138/55-84 mm Hg] 102/ 68mm Hg (03/16/23 9:50 AM) Mode of Delivery (Oxygen) Room air (03/16/23 9:50 AM) Blood pressure sites Arm, left (03/16/23 9:50 AM) Weight Obtained Via Standing scale (03/16/23 9:50 AM) Social History Social History Type Response Smoking Status Never smoker entered on: 09/18/14 Sex Note * [place] Landis: PERFORM, SIGN, VERIFY Event Display: Patient Education/Instruction Authored Date: [id number] [facility] So Surendra Price Clinical Summary Name EMELIA HONG Age 52 Years 1970 PCP Talat Snow MD PCP Visit Date 03/16/2023 09:40:00 Additional Instructions: Scheduled Appointments?? Future Appointments ?No Future Appointments Scheduled Follow-Up Instructions ?? With: Address: When: Talat Snow MD In 6 months Diagnosis Other specified abnormal findings of blood chemistry; Unspecified mood [affective] disorder; Bipolar disorder, unspecified; Type 2 diabetes mellitus with hyperglycemia; Pure hypercholesterolemia, unspecified Medications: Please continue your medications until treatment is completed or stopped by your provider. Discuss any questions related to medications with your provider. Medications to Continue Taking That Have Changed These medications were not printed or sent to your pharmacy - Lorazepam (LORazepam 0.5 mg oral tablet) 1 tablet by mouth in the morning, 1 tablet by mouth in the afternoon, 1-1/2 tablets by mouth at night.. Next Dose: - Olanzapine (Olanzapine 5 mg tablet) 10 mg at night. Next Dose: Medications to Continue with No Changes These medications were not printed or sent to your pharmacy Aspirin (aspirin 81 mg oral tablet) 1 tab(s) Oral Daily. Next Dose: Atorvastatin (atorvastatin 20 mg oral tablet) TAKE 1 TABLET BY MOUTH DAILY.. Refills: 5. Next Dose: Cholecalciferol (Vitamin D3 oral tablet) 4,000 unit(s) Oral Daily. Next Dose: Durable Medical Equipment ASV EPAP 8, mn PS 3, max PS 10. Reliable Respiratory FFM. Next Dose: Durable Medical Equipment (Freestyle Lite Lancets) use as directed for Type II Diabetes Mellitus, 250.00 TEST UP TO 3 TIMES DAILY. Refills: 5. Next Dose: Durable Medical Equipment (Freestyle Lite Monitor) Please check blood sugars as directed for new onset Diabetes Type II, 250.00. Refills: 0. Next Dose: Durable Medical Equipment (Freestyle Lite Test Strips) TEST BS BID E11.9. Refills: 11. Next Dose: empagliflozin (Jardiance 10 mg oral tablet) 1 tab(s) Oral Daily in the morning. Refills: 1. Next Dose: GlipiZIDE (glipiZIDE 10 mg oral tablet, extended release) 1 tab(s) Oral Daily. Refills: 5. Next Dose: Metformin (metFORMIN 1000 mg oral tablet) 1 tab(s) Oral twice a day. Refills: 5. Next Dose: Multivitamin Daily. Next Dose: [place]-3 Polyunsaturated Fatty Acids (Fish Oil 1200 mg oral capsule) 1 capsule Oral twice a day. Next Dose: Sertraline (sertraline 50 mg oral tablet) 2 tab(s) Oral Daily. Next Dose: Allergy Info:?? NKA Medications Given This Visit Future Orders ?Lipid Panel? Order Date:09/14/23?- Complete by?10/12/23 ?Comprehensive Metabolic Panel? Order Date:09/14/23?- Complete by?10/12/23 ?CBC? Order Date:09/14/23?- Complete by?10/12/23 ?Microalbumin Urine? Order Date:09/14/23?- Complete by?10/12/23 ?Hemoglobin A1C (Monitoring)? Order Date:09/14/23?- Complete by?10/12/23 Vital Signs Height 184 cm Weight 111.5 kg BMI 32.93 kg/m2 Blood Pressure 102 mm Hg/68 mm Hg Temperature Pulse Rate 91 bpm Respiratory Rate 02 Sat Mode of Delivery 64 %/Room air You can now view a summary of your hospital visit from the comfort of your home through a free online portal called [employer]. [employer] is a website that allows you to securely view your medical information including discharge summary, medications and follow-up visits. ??You can alsosend a secure electronic message to your doctor???s office to request appointments, renew medications or just ask a question. You can enroll at [email or web address] or register during your next office visit. Disclaimer:?? The information provided is of a general nature and is intended to be used in conjunction with the recommendations and advice of your health care practitioner. ??Every effort has been made to ensure that the information provided is accurate and complete at the time it is provided to you however, as your needs change, or, as new ??information becomes available, different or additional instructions may be required. If you have questions, please consult with your primary care provider or pharmacist, as appropriate. ??This information is not intended to serve as substitution for assessment and evaluation by a qualified health care provider. If you do not have a primary care provider, you may find a [facility] provider by calling [facility] at [phone]. [facility], in keeping with [facility] guidance, no longer requires face masks for staff, patientsor visitors in most situations. Similar to time spent indoors at other locations, there is the chance that you were exposed to respiratory viruses during your time with us (such as flu or COVID-19).? If you develop symptoms concerning for a viral respiratory infection, please seek testing (and treatment if indicated) from your medical provider or home test kit. For information about the plan of care including goals and instructions for your diagnosis, please see the patient education orders section of this document. Patient Education Materials?? The content of this educational material or handout may have been modified, supplemented, or adapted from its original content and format to support your individualized medical care. Patient Care team information Care Team Personnel Name: Gwendolyn SELF, Talat Morales Position: [facility] Physician - Primary Care Member Role: PCP Address: Address: [address] [place] [address]- Care Team Related Persons Name: CARIN HONG Address: home [address]
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
== END 2023-06-05 12:00 | disposition home or self-care (01) ==
LOC: HO.HOP 11:36
PROVIDERS: PCP Internal Medicine; Visit Provider Psychiatry & Neurology Psychiatry
DX: F41.1 Generalized anxiety disorder (principal); F40.10 Social phobia, unspecified; F31.78 Bipolar disorder, in full remission, most recent episode mixed
CPT/HCPCS: 99213

== ENCOUNTER → 2023-06-05 11:36 | Outpatient (BNVA) | payer OTHER, SELFPAY | PROVIDERS: PCP Internal Medicine; Visit Provider Psychiatry & Neurology Psychiatry ==

== ENCOUNTER 2023-09-18 18:05 | Outpatient (AMB) | payer OTHER, SELFPAY ==
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
--- OUTSIDE RECORDS SUMMARY | 2023-09-18 18:08 | XMS_ITS | Continuity of Care Document ---
Author Name Unknown Organization [facility] Surendra Jd lt Address [address] [place] [address]- Care Team Providers Care Tongue Stitcher Name Role Phone Talat Snow MD Primary Care Physician Encounter [facility] Date(s): 05/16/23 - 06/15/23 [facility] Adult [address] [place] [address]- Allergies, Adverse Reactions, Alerts No Known Allergies [...] 09/16/22 Recorded zoster vaccine, inactivated 05/07/22 Recorded [id number] bivalent booster vax 05/07/22 Recorded SARS-CoV-2 (COVID-19) [...] Given Tetanus Toxoid 02/27/05 Given 1Result Comment: [facility]# [address] [phone] [facility] 3Admin Note: Duriana 4Admin Note: [facility] Medications aspirin 81 mg oral tablet 1 tablet = 81 mg, By Mouth, Daily, # 30 tablet, 0 Refills, Maintenance, 12/04/13 8:53:04, Tablet Start Date: 12/04/13 Status: Ordered atorvastatin 20 mg oral tablet 1 tablet, By Mouth, Daily, # 90 tablet, 1 Refills, Maintenance, 05/16/23 13:54:00 EST, [id number], 184, cm, 03/16/23 9:50:00 EDT, Height Start Date: 05/16/23 Status: Ordered Durable Medical Equipment ASV EPAP [...] tablet, 3 Refills, Maintenance, 03/17/23 10:39:00 EDT, [facility]/pharmacy#[id number], 184, cm, 03/16/23 9:50:00 EDT, Height Start Date: 03/17/23 Stop Date: 03/11/24 Status: Ordered Jardiance 10 mg oral tablet 1 tablet, By Mouth, Daily in AM, # 90 tablet, 1 Refills, Maintenance, 01/10/23 21:39:00 EDT, [facility]/pharmacy #[id number], 184, cm, 09/05/22 8:32:00 [...] tablet, 3 Refills, Maintenance, 03/17/23 10:39:00 EDT, [facility]/pharmacy #[id number], 184, cm, 03/16/23 9:50:00 [...] Care team information Care Team Personnel Name: Miguelangle SELF, Jose Carlson Position: [facility] Renal MD Member Role: Lifetime Consulting Physician Address: Address: [address] [place] [address] [address] [place] [address]- [place] Name: Talat Snow MD Position: [facility] Physician - Primary Care Member Role: PCP Address: Address: [address] [place] [address]- Care Team Related Persons Name: CARIN HONG Address: home [address] [place] [address]
--- OUTSIDE RECORDS SUMMARY | 2023-09-18 18:08 | XMS_ITS | Continuity of Care Document ---
Author Name Unknown Organization [facility] Jd lt Address [address] [place] [address]- Care Team Providers Care Information Lead Name Role Phone Gwendolyn SELF, Talat Morales Primary Care Physician [phone] Encounter [facility] Date(s): 06/29/23 - 07/29/23 [facility] Adult [address] [place] [address]- Allergies, Adverse Reactions, Alerts No Known Allergies [...] 09/16/22 Recorded zoster vaccine, inactivated 05/07/22 Recorded [id number] bivalent booster vax 05/07/22 Recorded SARS-CoV-2 (COVID-19) [...] Tetanus Toxoid 02/27/05 Given 1Result Comment: [facility]# ON THE [address] 15781-761-40 2Admin Note: [facility] 3Admin Note: [employer] 4Admin Note: [employer] [facility] [place] Medic[place] aspirin 81 mg oral tablet 1 tablet = 81 mg, By Mouth, Daily, # 30 tablet, 0 Refills, Maintenance, 12/04/13 8:53:04, Tablet Start Date: 12/04/13 Status: Ordered atorvastatin 20 mg oral tablet 1 tablet, By Mouth, Daily, # 90 tablet, 1 Refills, Maintenance, 05/16/23 13:54:00 EST, [id number], 184, cm, 03/16/23 9:50:00 EDT, Height Start [...] tablet, 3 Refills, Maintenance, 03/17/23 10:39:00 EDT, [facility]/pharmacy#[id number], 184, cm, 03/16/23 9:50:00 EDT, Height Start Date: 03/17/23 Stop Date: 03/11/24 Status: Ordered Jardiance 10 mg oral tablet 1 tablet, By Mouth, Daily in AM, # 90 tablet, 1 Refills, Maintenance, 06/29/23 21:26:00 EST, [facility]/pharmacy #[id number], 184, cm, 03/16/23 9:50:00 EDT, Height Start Date: 06/29/23 Status: Ordered LORazepam 0.5 mg oral tablet [...] tablet, 3 Refills, Maintenance, 03/17/23 10:39:00 EDT, [facility]/pharmacy #[id number], 184, cm, 03/16/23 9:50:00 EDT, [...] 2011, u/s abdomen fatty infiltration 2Abnormal EKG 2017 done secondary to psychiatric admission. Echocardiogram without significant structural heart disease. Exercise stress test negative for reversible ischemia. 3secondary to Risperdal 4Patient with occasional prostatitis. Patient sees Dr. Suarez urology. Social History Social History Type Response Smoking Status Never smoker entered on: 09/18/14 Sex Patient Care team information Care Team Personnel Name: Miguelangel SELF, Jose Carlson Position: [facility] Renal MD Member Role: Lifetime Consulting Physician Address: Address: [address] [place] [address] [address] [facility] [address]- Name: Talat Snow MD Position: [facility] Physician - Primary Care Member Role: PCP Address: Address: [address] [place] [address]- Care Team Related Persons Name: HAL CARIN Address: home [address] [place] [address] [place]
--- OUTSIDE RECORDS SUMMARY | 2023-09-18 18:08 | XMS_ITS | Continuity of Care Document ---
Author Name Unknown Organization [facility] [place] Jd lt Address [address] [place] [address]- Care Team Providers Care Slotter Operator Name Role Phone Gwendolyn SELF, Talat Morales Primary Care Physician [facility] Date[facility]s): 06/29/23 - 07/29/23 [facility] Adult [address] [place] [address]- Allergies, Adverse Reactions, Alerts No Known Allergies [...] 09/16/22 Recorded zoster vaccine, inactivated 05/07/22 Recorded [id number] bivalent booster vax 05/07/22 Recorded SARS-CoV-2 (COVID-19) [...] Given Tetanus Toxoid 02/27/05 Given 1Result Comment: [facility]# ON THE [address] 63692-440-06 2Admin Note: [facility] 3Admin Note: [employer] 4Admin Note: [employer] [facility] [place] Medications aspirin 81 mg oral tablet 1 tablet = 81 mg, By Mouth, Daily, # 30 tablet, 0 Refills, Maintenance, 12/04/13 8:53:04, Tablet Start Date: 12/04/13 Status: Ordered atorvastatin 20 mg oral tablet 1 tablet, By Mouth, Daily, # 90 tablet, 1 Refills, Maintenance, 05/16/23 13:54:00 EST, [id number], 184, cm, 03/16/23 9:50:00 EDT, Height Start [...] Refills, Maintenance, 03/17/23 10:39:00 EDT, [facility]/pharmacy#[id number], 184, cm, 03/16/23 9:50:00 EDT, Height Start Date: 03/17/23 Stop Date: 03/11/24 Status: Ordered Jardiance 10 mg oral tablet 1 tablet, By Mouth, Daily in AM, # 90 tablet, 1 Refills, Maintenance, 06/29/23 21:26:00 EST, [facility]/pharmacy #[id number], 184, cm, 03/16/23 9:50:00 EDT, Height [...] Refills, Maintenance, 03/17/23 10:39:00 EDT, [facility]/pharmacy #[id number], 184, cm, 03/16/23 9:50:00 EDT, Height [...] Personnel Name: Miguelangel SELF, Jose Carlson Position: [facility] Renal MD Member Role: Lifetime Consulting Physician Address: Address: [address] [place] [address] [address] [place] [address]- Name: Talat Snow MD Position: [facility] Physician - Primary Care Member Role: PCP Address: Address: [address] [place] [id number]- Care Team Related Persons Name: HAL CARIN Address: home [address] [place] [address] [place]
== END 2023-09-18 18:07 | disposition home or self-care (01) ==
LOC: HO.HOP 18:05
PROVIDERS: PCP Internal Medicine; Visit Provider Psychiatry & Neurology Psychiatry
DX: F41.1 Generalized anxiety disorder (principal); F31.5 Bipolar disorder, current episode depressed, severe, with psychotic features
CPT/HCPCS: 99213

== ENCOUNTER → 2023-09-18 18:05 | Outpatient (BNVA) | payer OTHER, SELFPAY | PROVIDERS: PCP Internal Medicine; Visit Provider Psychiatry & Neurology Psychiatry ==

== ENCOUNTER 2024-03-05 14:16 | Outpatient (REF) | payer OTHER, SELFPAY ==
[2024-03-05 16:30] LABS: Estimated Average Glucose 146 mg/dL; Hemoglobin A1c % 6.7 % (<6.0)
[2024-03-05 17:01] LABS: Alanine Aminotransferase 45 U/L (0-40); Albumin Level 4.8 g/dL (3.5-5.0); Alkaline Phosphatase 103 U/L (39-117); Anion Gap 16 (12-20); Aspartate Amino Transferase 20 U/L (5-37); Bilirubin Total 0.4 mg/dL (0.0-1.0); Blood Urea Nitrogen 25 mg/dL (9-16); Calcium 10.4 mg/dL (8.4-10.2); Carbon Dioxide 26 mmol/L (22-29); Chloride 106 mmol/L (96-108); Estimated Glomerular Filt Rate > 60; Glucose Random 137 mg/dL (60-115); Potassium 3.7 mmol/L (3.3-5.1); Sodium 144 mmol/L (135-145); Total Protein 7.5 g/dL (6.5-8.0)
== END 2024-03-05 14:17 | disposition home or self-care (01) ==
LOC: HO.LAB 14:16
PROVIDERS: PCP Internal Medicine; Visit Provider Psychiatry & Neurology Psychiatry
DX: E11.9 Type 2 diabetes mellitus without complications (principal); F41.1 Generalized anxiety disorder; F33.42 Major depressive disorder, recurrent, in full remission
CPT/HCPCS: 36415; 80053; 83036

== ENCOUNTER 2024-03-05 14:16 | Outpatient (AMB) | payer OTHER, SELFPAY ==
--- OUTSIDE RECORDS SUMMARY | 2024-03-05 14:20 | XMS_ITS | Continuity of Care Document ---
Author Organization [facility] Jd lt Address [address] [place] [address]- Care Team Providers Care Data Compiler Name Role Phone Talat Snow MD Primary Care Physician [phone] [place] [facility] [place] 09/27/23 - 10/04/23 [facility] Adult [address] [place] [address]- Encounter Diagnosis Affective disorder, psychotic(Discharge Diagnosis) - 09/27/23 Bipolar disorder(Discharge Diagnosis) - 09/27/23 Depression, major, recurrent, in partial remission(Discharge Diagnosis) - 09/27/23 Diabetes mellitus type 2, uncontrolled, without complications(Discharge Diagnosis) - 09/27/23 Obstructive sleep apnea(Discharge Diagnosis) - 09/27/23 Hypercholesterolemia(Discharge Diagnosis) - 09/27/23 Attending Physician: Talat Snow MD Allergies, Adverse Reactions, Alerts No Known Allergies Immunizations Given and Recorded Vaccine Date Status Refusal Reason SARS-CoV-2(COVID-19)mRNA-LNP vac([id number]) 04/10/23 Recorded pneumococcal 20-valent conjugate vaccine 03/17/23 Given influenza [...] 09/16/22 Recorded zoster vaccine, inactivated 05/07/22 Recorded [id number] bivalent booster vax 05/07/22 Recorded SARS-CoV-2 (COVID-19) [...] Given Tetanus Toxoid 02/27/05 Given 1Result Comment: [facility]# ON THE [address] [phone] 2Admin Note: [facility] 3Admin Note: [employer] 4Admin Note: [employer] Medications aspirin 81 mg oral tablet 1 tablet = 81 mg, By Mouth, Daily, # 30 tablet, 0 Refills, Maintenance, 12/04/13 8:53:04, Tablet Start Date: 12/04/13 Status: Ordered atorvastatin 20 mg oral tablet 1 tablet, By Mouth, Daily, # 90 tablet, 1 Refills, Maintenance, 05/16/23 13:54:00 EST, [id number], 184, cm, 03/16/23 9:50:00 EDT, Height Start Date: 05/16/23 Status: Ordered Durable Medical Equipment ASV EPAP 8, mn PS 3, max PS 10, Maintenance, Reliable Respiratory FFM, 04/29/18 14:02:53 EST, Compound Start Date: 04/29/18 Status: Ordered empagliflozin 25 mg oral tablet 1 tablet = 25 mg, By Mouth, Daily in AM, # 90 tablet, 3 Refills, Maintenance, 09/27/23 9:05:00 EDT,Tablet, [facility]/pharmacy #[id number], Partial fill upon patient request if the prescription is for a scheduleII opioid drug., 184, cm, 09/27/23 8:46:00 EDT, Height Start Date: 09/27/23 Status: Ordered Fish Oil 1200 mg oral [...] tablet, 3 Refills, Maintenance, 03/17/23 10:39:00 EDT, [facility]/pharmacy#[id number], 184, cm, 03/16/23 9:50:00 EDT, Height Start Date: 03/17/23 Stop Date: 03/11/24 Status: Ordered LORazepam 0.5 mg oral tablet [...] tablet, 3 Refills, Maintenance, 03/17/23 10:39:00 EDT, [facility]/pharmacy #[id number], 184, cm, 03/16/23 9:50:00 EDT, [...] drug. Start Date: 07/07/21 Status: Ordered Vitamin C By Mouth, Daily, 0 Refills, Maintenance, 09/27/23 8:45:00 EDT, Partial fill upon patient request ifthe prescription is for a schedule II opioid drug. Start Date: 09/27/23 Status: Ordered Vitamin D3 oral tablet = [...] occasional prostatitis. Patient sees Dr. Suarez urology. Diagnosis Diagnosis Type Effective Dates Health Status Clinical Service Informant Affective disorder, psychotic Discharge Diagnosis 09/27/23 Bipolar disorder Discharge Diagnosis 09/27/23 Depression, major, recurrent, in partial remission Discharge Diagnosis 09/27/23 Diabetes mellitus type 2, uncontrolled, without complications Discharge Diagnosis 09/27/23 Obstructive sleep apnea Discharge Diagnosis 09/27/23 Hypercholesterolemia Discharge Diagnosis 09/27/23 Vital Signs Most recent to oldest [Reference Range]: 1 Height 184 cm (09/27/23 8:46 AM) Weight 112.6 kg (09/27/23 8:46 AM) Oxygen Saturation [94-100 %] 95 % (09/27/23 8:46 AM) Pulse Rate [55-90 bpm] 83 bpm (09/27/23 8:46 AM) Body Mass Index [18.5-24.99 kg/m2] 33.26 kg/m2 *>HHI* (09/27/23 8:46 AM) Blood Pressure [90-138/55-84 mm Hg] 121/ 75mm Hg (09/27/23 8:46 AM) Respiratory Rate [16-30 br/min] 20 br/mi n (09/27/23 8:46 AM) Temperature [96.8-100.4 DegF] 97.4 DegF (09/27/23 8:46 AM) Mode of Delivery (Oxygen) Room air (09/27/23 8:46 AM) Blood pressure sites Arm, right (09/27/23 8:46 AM) Temperature Route Oral (09/27/23 8:46 AM) Weight Obtained Via Standing scale (09/27/23 8:46 AM) Social History Social History Type Response Smoking Status Never smoker entered on: 09/18/14 Sex Note * [place] Landis: PERFORM, SIGN, VERIFY Event Display: Patient Education/Instruction Authored Date: [id number] [facility] *ARTURO Price Clinical Summary Name EMELIA HONG Age 52 Years 1970 PCP Gwendolyn ESLF, Talat Morales PCP Visit Date 09/27/2023 08:40:00 Additional Instructions: Scheduled Appointments?? Future Appointments ?No Future Appointments Scheduled Follow-Up Instructions ?? With: Address: When: Gwendolyn SELF, Talat Morales In 6 months Comments: Physical examination Diagnosis Bipolar disorder, unspecified; Obstructive sleep apnea (adult) (pediatric); Unspecified mood [affective] disorder; Pure hypercholesterolemia, unspecified; Major depressive disorder, recurrent, in partial remission; Type 2 diabetes mellitus with hyperglycemia Medications: Please continue your medications until treatment is completed or stopped by your provider. Discuss any questions related to medications with your provider. Medications to Continue Taking That Have Changed [id number], [address], [place] [id number], [phone] - empagliflozin (empagliflozin 25 mg oral tablet) 1 tab(s) Oral Daily in the morning. Refills: 3. Next Dose: Medications to Continue with No Changes These medications were not printed or sent to your pharmacy Ascorbic Acid (Vitamin C) Oral Daily. Next Dose: Aspirin (aspirin 81 mg oral tablet) 1 tab(s) Oral Daily. Next Dose: Atorvastatin (atorvastatin 20 mg oral tablet) 1 tab(s) Oral Daily. Refills: 1. Next Dose: Cholecalciferol (Vitamin D3 oral tablet) [...] BS BID E11.9. Refills: 11. Next Dose: GlipiZIDE (glipiZIDE 10 mg oral tablet, extended release) 1 tab(s) Oral Daily for 90 Days. Refills:3. Next Dose: Lorazepam (LORazepam 0.5 mg oral tablet) 1 tablet by mouth in the morning, 1 tablet by mouth in theafternoon, 1-1/2 tablets by mouth at night.. Next Dose: Metformin (metFORMIN 1000 mg oral tablet) 1 tab(s) Oral twice a day. Refills: 3. Next Dose: Multivitamin Daily. Next Dose: Olanzapine (Olanzapine 5 mg tablet) 10 mg at night. Next Dose: [place]-3 Polyunsaturated Fatty Acids (Fish Oil 1200 mg oral capsule) 1 capsule Oral twice a day. Next Dose: Sertraline (sertraline 50 mg oral tablet) 2 tab(s) Oral Daily. Next Dose: Allergy Info:?? NKA Medications Given This Visit Future Orders ?No future orders Future Orders ?Hemoglobin A1C (Monitoring)? Order Date:03/28/24?- Complete within?Comprehensive Metabolic Panel? Order Date:03/28/24?- Complete within?Microalbumin Urine? Order Date:03/28/24?- Complete within?CBC? Order Date:03/28/24?- Complete within?PSA? Order Date:03/28/24?- Complete within?Thyroid Panel? Order Date:03/28/24?- Complete within?Lipid Panel? Order Date:03/28/24?- Complete within? Vital Signs Height 184 cm Weight 112.6 kg BMI 33.26 kg/m2 Blood Pressure 121 mm Hg/75 mm Hg Temperature 97.4 DegF Pulse Rate 83 bpm Respiratory Rate 20 br/min 02 Sat Mode of Delivery 95 %/Room air You can now view a summary of your hospital visit from the comfort of your home through a free online portal called [facility]. [facility] [facility] is a website that allows you to securely view your medical information including discharge summary, medications and follow-up visits. ??You can alsosend a secure electronic message to your doctor???s office to request appointments, renew medications or just ask a question. You can enroll at [email or web address] or register during your next office visit. [...] primary care provider, you may find a [facility] provider by calling [employer] at [phone]. [facility], in keeping with [facility] guidance, no longer requires face masks for [...] Personnel Name: Miguelangel SELF, Jose Carlson Position: [facility] Renal MD Member Role: Lifetime Consulting Physician Address: Address: [address] [place] [address] [address] [place] [address]- Name: Gwendolyn SELF, Talat Morales Position: [facility] Physician - Primary Care Member Role: PCP Address: Address: [address] [place] [address]- Care Team Related Persons Name: CARIN HONG Address: home [address]
--- OUTSIDE RECORDS SUMMARY | 2024-03-05 14:20 | XMS_ITS | Continuity of Care Document ---
Author Organization [facility] [place] Jd lt Address [address] [place] [address]- Care Team Providers Care Grinder Set Up Operator Surface Name Role Phone Talat Snow MD Primary Care Physician Encounter [facility] Date(s): 10/20/23 - 11/19/23 [facility] Adult [address] [place] [address]- Allergies, Adverse Reactions, Alerts No Known Allergies Immunizations Given and Recorded Vaccine Date Status Refusal Reason SARS-CoV-2(COVID-19)mRNA-LNP vac([id number]) 04/10/23 Recorded pneumococcal 20-valent conjugate vaccine 03/17/23 [...] 09/16/22 Recorded zoster vaccine, inactivated 05/07/22 Recorded [id number] bivalent booster vax 05/07/22 Recorded SARS-CoV-2 (COVID-19) [...] Given Tetanus Toxoid 02/27/05 Given 1Result Comment: [facility]# ON THE [address] [id number] 2Admin Note: [facility] 3Admin Note: [employer] 4Admin Note: [employer] Medications aspirin 81 mg oral tablet 1 tablet = 81 mg, By Mouth, Daily, # 30 tablet, 0 Refills, Maintenance, 12/04/13 8:53:04, Tablet Start Date: 12/04/13 Status: Ordered atorvastatin 20 mg oral tablet 1 tablet, By Mouth, Daily, # 90 tablet, 1 Refills, Maintenance, 10/20/23 14:04:00 EDT, [id number], 184, cm, 09/27/23 8:46:00 EDT, Height Start Date: 10/20/23 Status: Ordered Durable Medical Equipment ASV EPAP 8, mn PS 3, max PS 10, Maintenance, Reliable Respiratory FFM, 04/29/18 14:02:53 EST, Compound Start Date: 04/29/18 Status: Ordered empagliflozin 25 mg oral tablet 1 tablet = 25 mg, By Mouth, Daily in AM, # 90 tablet, 3 Refills, Maintenance, 09/27/23 9:05:00 EDT,Tablet, [id number], Partial fill upon patient request if the [...] tablet, 3 Refills, Maintenance, 03/17/23 10:39:00 EDT, [id number], 184, cm, 03/16/23 9:50:00 EDT, Height Start [...] tablet, 3 Refills, Maintenance, 03/17/23 10:39:00 EDT, [id number], 184, cm, 03/16/23 9:50:00 EDT, Height [...] Care team information Care Team Personnel Name: Jose Maens MD Position: [facility] Renal MD Member Role: Lifetime Consulting Physician Address: Address: [address] [place] [address] [address] [facility] [place] [address]- Name: Talat Snow MD Position: [facility] Physician - Primary Care Member Role: PCP Address: Address: [address] [place] [address]- Care Team Related Persons Name: CARIN HONG Address: home [address] [place] [address]
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
== END 2024-03-05 15:05 | disposition home or self-care (01) ==
LOC: HO.HOP 14:17
PROVIDERS: PCP Internal Medicine; Visit Provider Psychiatry & Neurology Psychiatry
DX: F33.42 Major depressive disorder, recurrent, in full remission (principal); F41.1 Generalized anxiety disorder; F40.10 Social phobia, unspecified
CPT/HCPCS: 99214

== ENCOUNTER 2024-04-29 10:40 | Outpatient (AMB) | payer OTHER, SELFPAY ==
[2024-04-29 11:00] VITALS: BP 132/76; PULSE 96; O2SAT 97; BMI 31.5
--- NOTE | 2024-04-29 11:00 | HO.NEPHOV_ITS ---
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 Required: No Accompanied by: Self / Same As Patient Allergies No Known Allergies [No Known Allergies*] Allergy (Verified 04/29/24 11:01) Medication List - Last Reconciled 04/29/24 by Jose Means MD ascorbic acid (vitamin C) (Vitamin C) atorvastatin 20 mg PO BEDTIME 30 days cholecalciferol (vitamin D3) (Vitamin D3) empagliflozin (Jardiance) 25 mg PO DAILY [Fish Oil ] glipizide ER 10 mg PO DAILY 30 days lorazepam 1 mg PO DIRECTED metformin 1,000 mg PO BID 30 days multivitamin 1 tab PO DAILY olanzapine 7.5 mg PO BEDTIME sertraline 100 mg PO DAILY 90 days HPI Comments Details: 52-year-old man with a history of longstanding diabetes mellitus and bipolar disorder with history mild chronic kidney disease He is here for annual follow-up. Recent A1c was 6 point and person. He has no significant proteinuria. Serum creatinine stable is 1.0 mg/dL. He has continued Jardiance amongst other medications. He has RONY and uses CPAP regularly. [facility] Medical History (Updated 04/29/24 @ 11:11 by Jose Means MD) Non-insulin dependent type 2 diabetes mellitus Major depressive disorder, recurrent, in full remission with mood-congruent psychotic features Generalized anxiety disorder MDD (major depressive disorder) Inguinal hernia Sleep apnea Hyperlipemia Social anxiety disorder Bipolar 1 disorder Depression Diabetes Surgical History H/O hernia repair Social History Household Members: None Housing: Unknown / Unable to assess Do you presently have visiting nurse or other home services: No Unable to assess alcohol history related to: Unable to respond and Unknown Patient Tobacco Use Status: Never used Tobacco service: No Sexual orientation: Straight/Heterosexual Physical Exam Vital Signs: Last Vital Signs Pulse 96 04/29/24 11:00 Pulse Ox 97 04/29/24 11:00 Oxygen Delivery Method Room Air 04/29/24 11:00 BMI result Body Mass Index 31.5 Results Reviewed Nephrology Results: Sodium 144 mmol/L (135-145) 03/05/24 Potassium 3.7 mmol/L (3.3-5.1) 03/05/24 Chloride 106 mmol/L (96-108) 03/05/24 Carbon Dioxide 26 mmol/L (22-29) 03/05/24 BUN 25 mg/dL (9-16) H 03/05/24 Creatinine 0.97 mg/dL (0.5-1.4) 03/05/24 Calcium 10.4 mg/dL (8.4-10.2) H 03/05/24 Assessment & Plan Assessment & Plan (1) Type 2 diabetes mellitus: Code(s): E11.9 - Type 2 diabetes mellitus without complications Category: Medical (2) CKD (chronic kidney disease): Code(s): N18.9 - Chronic kidney disease, unspecified Category: Medical Plan Anthony has mild CKD in a setting of longstanding diabetes mellitus. At present renal function stable with creatinine 1.0. Goal is to slow the progression of renal disease. Hemoglobin A1c should be < 7% Continue Jardiance for cardiorenal protection. Blood pressure is well controlled. Stay on low-sodium diet. NO significant proteinuria Mild hypercalcemia Ca 10.4 On Vit d 5000 units a day fo rpast few years Would DECREASE to 5000 U 2 x a week Coding Level of Care Code Est Pt Level 3 (28867) Diagnoses Type 2 diabetes mellitus E11.9 CKD (chronic kidney disease) N18.9
== END 2024-04-29 11:12 | disposition home or self-care (01) ==
PROVIDERS: PCP Internal Medicine; Visit Provider Internal Medicine Hypertension Specialist
DX: E11.22 Type 2 diabetes mellitus with diabetic chronic kidney disease (principal); N18.2 Chronic kidney disease, stage 2 (mild)
CPT/HCPCS: 99213

== ENCOUNTER → 2024-04-29 10:40 | Outpatient (BNVA) | payer OTHER, SELFPAY | PROVIDERS: PCP Internal Medicine; Visit Provider Internal Medicine Hypertension Specialist ==

== ENCOUNTER 2024-08-23 11:40 | Outpatient (AMB) | payer OTHER, SELFPAY ==
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
== END 2024-08-23 12:51 | disposition home or self-care (01) ==
PROVIDERS: PCP Internal Medicine; Visit Provider Psychiatry & Neurology Psychiatry
DX: F31.78 Bipolar disorder, in full remission, most recent episode mixed (principal); F40.10 Social phobia, unspecified
CPT/HCPCS: 99214

== ENCOUNTER → 2024-08-23 11:40 | Outpatient (BNVA) | payer OTHER, SELFPAY | PROVIDERS: PCP Internal Medicine; Visit Provider Psychiatry & Neurology Psychiatry ==

== ENCOUNTER 2024-12-03 17:41 | Outpatient (AMB) | payer OTHER, SELFPAY ==
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
== END 2024-12-03 17:42 | disposition home or self-care (01) ==
LOC: HO.HOP 17:41
PROVIDERS: PCP Internal Medicine; Visit Provider Psychiatry & Neurology Psychiatry
DX: F31.78 Bipolar disorder, in full remission, most recent episode mixed (principal); F40.10 Social phobia, unspecified
CPT/HCPCS: 99214

== ENCOUNTER → 2024-12-03 17:41 | Outpatient (BNVA) | payer OTHER, MEDICAID, SELFPAY | PROVIDERS: PCP Internal Medicine; Visit Provider Psychiatry & Neurology Psychiatry ==

== ENCOUNTER 2025-05-19 17:27 | Outpatient (BNV) | payer MEDICARE, MEDICAID, SELFPAY | END 2025-06-06 23:51 | PROVIDERS: Admitting Provider Psychiatry & Neurology Psychiatry; Visit Provider Internal Medicine Cardiovascular Disease | DX: R00.0 Tachycardia, unspecified (principal) | CPT/HCPCS: 93010 ==

== ENCOUNTER 2025-05-19 17:27 | Inpatient (IN) | payer MEDICARE, MEDICAID, SELFPAY ==
--- NOTE | ~2025-05-19 | CT_ITS ---
CLINICAL HISTORY: Unwitnessed fall --- Additional Notes or Special Instructions: Acute change in cognition CT head without contrast Comparison: None provided Findings: No acute intracranial hemorrhage. No acute large territorial ischemia. No mass effect, midline shift, or hydrocephalus. Paranasal sinuses are clear. Mastoid air cells are clear. The orbits are within normal limits. Left parietal scalp contusion. Lateral left face subcutaneous dystrophic calcifications. No skull fracture. IMPRESSION: No acute intracranial abnormality. Left parietal scalp contusion. No calvarial fracture. This document has been electronically signed by: Alek Vora MD on 06/07/2025 01:09:23
--- NOTE | ~2025-05-19 | XR_ITS ---
CLINICAL HISTORY: Lactic acidosis, confusion 1 view chest x-ray. Comparison: None Findings: The lungs are underexpanded. No focal consolidation. No effusion or pneumothorax. Cardiac and mediastinal contours are within normal limits. No acute osseous abnormality Impression: Underexpanded, clear appearing lungs. Limited study. This document has been electronically signed by: Brendon Lacy MD on 06/07/2025 08:47:26
[2025-05-19 18:00] VITALS: BP 137/102; PULSE 110; RESP 18; TEMP 36.6; O2SAT 96
[2025-05-19 18:20] VITALS: BMI 27.7
--- NOTE | 2025-05-19 18:41 | PC.ADMIT ---
Patient 54 years old with a history of diabetes Mellitus type II, Hyperlipidemia, Major depressive disorder, Schizoaffective disorder, Catatonia was hospitalized in [facility] for emotional and functional decompensation following an online relationship for the past 15 months to a woman he had yet to meet in person, but discovered he was a scam 3 weeks before the meeting. The patient reports worsening depressive symptoms, including low mood, poor concentration, insomnia, reduce appetite, fatigue and increase anxiety. His son reported paranoid delusions, agitation, and overwhelming sense of guilt, sadness, difficulty speaking, thought blocking, he has slept little over few days , sits up at night persevering and ruminating, engaging in negative self dialogue , calling himself stupid , feeling embarrassed and guilty for falling the scam. Patient reported medications were working for some time but the symptoms persist. Given the chronicity of the symptoms and this patient had history of good effect in the past with ECT, the son requested the transfer for evaluation. After evaluation by the Care Team and Dr. Rosado, given the worsening symptoms and non response to medical therapy, patient was admitted to at 17H40 PM for psychiatric assessment and ECT treatment. Skin checked was normal, no bruises, no open area. On mental status, patient is depressed, flat, anxious and repetitive.
--- OUTSIDE RECORDS SUMMARY | 2025-05-19 18:51 | XMS_ITS | Clinical Summary ---
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 Not on tony e 03/27/2025 Are you concerned about learning? Not on file 03/27/2025 No 03/27/2025 No 03/27/2025 Digital Access Answer Date Recorded No 03/27/2025 No 03/27/2025 Reliable internet access at home? Not on file 03/27/2025 Device with a working camera? Not on file Sex and Gender Information Value Date Recorded Sex Assigned at Not on file Legal Sex Male 9:33 PM EDT Gender Identity Not on file Sexual Orientation Not on file Plan of Treatment Upcoming Encounters Date Type Department Care Team (Late st Contact Info) Description 11/03/2025 9:30 AM EDT Office Visit [facility] [address] [place] [address] Shena Morgan, OD [address] [facility] [address] [place] [address] Health Maintenance Due Date Last Done Comments Adult Td,Tdap Booster 1971 LIPID PANEL 1971 DEPRESSION SCREENING 1983 SMOKING Hx and SMOKELESS TOB ACCO SCREENING 12/04/1984 HEPATITIS C SCREENING 12/04/1989 HIV ONE-TIME SCREENING (18-6 5 YEARS) 12/04/1989 COLOGUARD 12/04/2016 COLONOSCOPY 12/04/2016 COLORECTAL CANCER SCREENING 12/04/2016 FIT TEST 12/04/2016 FOBT 12/04/2016 SIGMOIDOSCOPY 12/04/2016 VIRTUAL COLONOSCOPY 12/04/2016 PNEUMOCOCCAL VACCINES (50+ y ears) (1 of 1 - PCV) 12/04/2021 ZOSTER VACCINES (1 of 2) 12/04/2021 INFLUENZA VACCINE (#1) 2025 COVID-19 VACCINE (1 - 2024-2 6 season) 2025 RSV VACCINE (1 - 1-dose 75+ series) 12/04/2046 HEPATITIS A VACCINES Aged Out No long er eligible based on patient's age to complete this topic HIB VACCINES Aged Out No longer eligi ble based on patient's age to complete this topic MENINGOCOCCAL VACCINES (ACWY) Aged Out No longer eligible based on patient's age to complete this topic MENINGOCOCCAL VACCINES (B) Aged Out N o longer eligible based on patient's age to complete this topic Medical Devices Not on file Additional Source Comments The information contained in this document represents components of the legal health record. It is not the complete legal health record.[facility]
[2025-05-19 20:00] VITALS: BP 150/74; PULSE 112; RESP 18; TEMP 36.9; O2SAT 96
--- NOTE | 2025-05-20 | ECG_ITS ---
Test Reason : ECT CLEARANCE Blood Pressure : */* mmHG Vent. Rate : 104 BPM Atrial Rate : 104 BPM P-R Int : 170 ms QRS Dur : 86 ms QT Int : 338 ms P-R-T Axes : 51 55 63 degrees QTcB Int : 444 ms Sinus tachycardia Nonspecific T wave abnormality Abnormal ECG When compared with ECG of 19-Jul-2022 13:12, No significant change was found Referred By: Sahra Leo Electronically Signed By: ADAIR BRADSHAW
[2025-05-20 08:00] VITALS: BP 121/90; PULSE 116; RESP 16; TEMP 36.4; O2SAT 93
--- NOTE | 2025-05-20 08:13 | P.CONHOSP_ITS ---
History of Present Illness Data of Consult Service Date: 05/20/25 Primary Care Provider: Unknown Physician HPI Reason for consult: Medical H&P 54-year-old male with a past medical history of schizoaffective disorder bipolar type, major depression, GERD, hyperlipidemia, type 2 diabetes presented to [facility] with paranoid delusions, sleep disturbances, agitation and guilt. Initial workup revealed a negative tox screen, negative alcohol, metabolic panel without a electrolyte disturbances, renal or liver dysfunction. No leukocytosis and no anemia noted. Patient has a history of ECT treatments in his transferred here for continued psychiatric care and possible ECT. [facility] Medical History (Updated 04/29/24 @ 11:11 by Jose Means MD) Non-insulin dependent type 2 diabetes mellitus Major depressive disorder, recurrent, in full remission with mood-congruent psychotic features Generalized anxiety disorder MDD (major depressive disorder) Inguinal hernia Sleep apnea Hyperlipemia Social anxiety disorder Bipolar 1 disorder Depression Diabetes Surgical History H/O hernia repair Social History Household Members: Children Housing: House Do you presently have visiting nurse or other home services: No Patient Tobacco Use Status: Never used Tobacco Currently Displaying Signs/Symptoms of Drug Intoxication Withdrawal: No Have you been hit, kicked, punched, or otherwise hurt by someone within the past year? If so, by whom?: No Do you feel safe in your current relationship?: No Current Relationship Is there a partner from a previous relationship who is making you feel unsafe now?: No Are you made to feel afraid or neglected: No Advance Directives: No Advance Directives Information Provided: Yes Do you have thoughts of harming others: None Do you have a plan to hurt others: No Plan Recently lost weight without trying: No Nutrition Risks: No Nutritional Risk Poor oral hygiene: No service: No Sexual orientation: Straight/Heterosexual Meds Allergies Allergy/AdvReac Type Severity Reaction Status Date / Time No Known Drug Allergies Allergy Unknown Verified 05/19/25 18:25 Active Medications: Current Medications Acetaminophen (Acetaminophen 325 Mg Tablet) 650 mg PO Q6H PRN PRN Reason: Headache/Pain, Scale 1-10 Al Hydroxide/Mg Hydroxide (Magnesium Hydrox/Alum Hydrox 30 Ml Oral.Susp) 30 ml PO Q6H PRN PRN Reason: Heartburn/Nausea Ascorbic Acid (Ascorbic Acid 500 Mg Tablet) 1,000 mg PO DAILY [facility] Aspirin (Aspirin 81 Mg Tab.Chew) 81 mg PO DAILY [facility] Atorvastatin Calcium (Atorvastatin Calcium 20 Mg Tablet) 20 mg PO BEDTIME KATEY Empagliflozin (Empagliflozin 25 Mg Tablet) 25 mg PO DAILY [facility] Glipizide (Glipizide Xl 10 Mg Tab.Er.24) 10 mg PO DAILY [facility] Hydroxyzine HCl (Hydroxyzine Hcl 25 Mg Tablet) 25 mg PO Q6H PRN PRN Reason: mild anxiety Lamotrigine (Lamotrigine 25 Mg Tablet) 50 mg PO BEDTIME [facility] Brewer Carbonate (Brewer Carbonate Er 300 Mg Tablet.Er) 300 mg PO BEDTIME [facility] Last Admin: 05/19/25 23:05 Dose: 300 mg Lorazepam (Lorazepam 1 Mg Tablet) 1 mg PO Q6H PRN PRN Reason: Anxiety Last Admin: 05/20/25 00:08 Dose: 1 mg Magnesium Hydroxide (Milk Of Magnesia 30 Ml Oral.Susp) 30 ml PO DAILY PRN PRN Reason: Constipation Metformin HCl (Metformin Hcl 1,000 Mg Tablet) 1,000 mg PO BIDWM [facility] Multivitamins/Vitamin C (Multivitamin Tablet) 1 tab PO DAILY [facility] Nicotine (Nicotine 21 Mg Patch.Td24) 21 mg TRANSDERMA DAILY PRN PRN Reason: nicotine craving Nicotine Polacrilex (Nicotine Polacrilex 2 Mg Gum) 2 mg BUCCAL Q2H PRN PRN Reason: Nicotine Cravings Olanzapine (Olanzapine 2.5 Mg Tablet) 2.5 mg PO DAILY PRN PRN Reason: anxiety/paranoia Olanzapine (Olanzapine 5 Mg Tablet) 5 mg PO BEDTIME [facility] Last Admin: 05/19/25 23:05 Dose: 5 mg Sertraline HCl (Sertraline Hcl 100 Mg Tablet) 100 mg PO DAILY [facility] Trazodone HCl (Trazodone Hcl 50 Mg Tablet) 50 mg PO BEDTIME MRX1 PRN PRN Reason: Insomnia Last Admin: 05/20/25 00:08 Dose: 50 mg Vitamin D (Cholecalciferol (Vitamin D3) 25 Mcg Tablet) 125 mcg PO DAILY [facility] Home Medications ?Medication ?Instructions ?Recorded ?Confirmed ?Last Taken ?Type multivitamin 1 tab PO DAILY 03/01/2107/1302/28/21 History empagliflozin 25 mg tablet 25 mg PO DAILY 04/29/2407/13 Unknown History (Jardiance) Windfall 3 Fish Oil 1,000 mg PO DAILY 05/19/25 1 07/20/24 Unknown History ascorbic acid (vitamin C) 1,000 mg 1,000 mg PO DAILY 1 07/20/24 05/19/25 Unknown History tablet (Vitamin C) aspirin 81 mg tablet 81 mg PO DAILY 05/19/2507/13 Unknown History cholecalciferol (vitamin D3) 125 5,000 unit PO DAILY 1 07/20/24 05/19/25 Unknown History mcg (5,000 unit) tablet lamotrigine 50 mg PO BEDTIME 05/19/25 Unknown History lithium carbonate 300 mg 300 mg PO BEDTIME 05/19/25 1 07/20/24 Unknown History tablet,extended release (Lithobid) lorazepam 1 mg tablet 1 mg PO Q6H PRN Anxiety 07/1305/19/25 Unknown History Physical Exam 2 Vital Signs and Narrative: Vital Signs: Last Vital Signs Temp 97.5 F 05/20/25 08:00 Pulse 116 H 05/20/25 08:00 Resp 16 05/20/25 08:00 BP 121/90 H 05/20/25 08:00 Pulse Ox 93 05/20/25 08:00 O2 Del Method Room Air 05/20/25 08:00 BMI result Body Mass Index 27.7 Results Labs 05/20/25 07:44
[2025-05-20 08:16] LABS: Alanine Aminotransferase 80 U/L (0-40); Albumin Level 5.3 g/dL (3.5-5.0); Alkaline Phosphatase 91 U/L (39-117); Anion Gap 19 (12-20); Aspartate Amino Transferase 48 U/L (5-37); Blood Urea Nitrogen 19 mg/dL (9-16); Calcium 9.9 mg/dL (8.4-10.2); Carbon Dioxide 19 mmol/L (22-29); Chloride 106 mmol/L (96-108); Cholesterol 128 mg/dL (<200); Creatinine Clr Calc Pharmacy 96.5; Estimated Glomerular Filt Rate > 60; HDL Cholesterol 55 mg/dL (>40); Magnesium 2.0 mg/dL (1.6-2.6); Potassium 3.9 mmol/L (3.3-5.1); Sodium 140 mmol/L (135-145); Total Protein 7.6 g/dL (6.5-8.0); Triglycerides 78 mg/dL (<150)
[2025-05-20 08:30] LABS: Free T4 (Free Thyroxine) 1.23 ng/dL (0.71-1.85); Thyroid Stimulating Hormone 2.02 uIU/mL (0.32-4.0)
[2025-05-20 08:45] LABS: Folate 16.9 ng/mL (> or = 4.0); Vitamin B12 1176 pg/mL (200-900)
[2025-05-20] MEDS: glipiZIDE XL 10 MG TAB.ER.24 PO (11:13)
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
--- NOTE | 2025-05-20 15:45 | HO.ECT-CONS ---
History of Present Illness Data of Consult Service Date: 05/20/25 Primary Care Provider: Unknown Physician HPI Reason for consult: ECT consult 54-year-old male with a past medical history of schizoaffective disorder, generalized anxiety disorder, type 2 diabetes, hyperlipidemia, presented to the emergency room with worsening depression, paranoid. His initial workup in the ED did not reveal any electrolyte disturbances, renal or liver dysfunction, anemia, or. He has a negative tox screen. Patient is admitted for psychiatric treatment and plan ECT. On exam he is slow to answer, does not have any medical concerns. Patient is being seen due to evaluation for ECT treatment. Patient has had ECT treatment in the past in 2020 and 2022 with no adverse reactions. Denies any DAY, orthopnea, PND. ?Denies history of cerebral hemorrhage or ischemic stroke, space-occupying intracranial lesion, or TBI.? No significant cardiac history including CAD, OR, or heart arrhythmias.? No severe pulmonary conditions.? Denies history PAD or bleeding disorders. No previous complications from anesthesia.?Outside EKG reviewed, no ischemic changes.? Patient denies chest pain/pressure, palpitations.? No shortness of breath or difficulty breathing.? Denies lightheadedness or dizziness.? No fever, chills, nausea, vomiting, abdominal pain.? Ambulating with a steady gait on the unit.? Review of Systems Review of Systems: Patient has no acute medical complaints at this time All other systems are reviewed and are negative [facility] Medical History (Updated 05/20/25 @ 15:44 by Sahra Leo DNP) MDD (major depressive disorder) Non-insulin dependent type 2 diabetes mellitus Major depressive disorder, recurrent, in full remission with mood-congruent psychotic features Generalized anxiety disorder Inguinal hernia Sleep apnea Hyperlipemia Social anxiety disorder Bipolar 1 disorder Depression Diabetes Surgical History H/O hernia repair Social History Household Members: Children Housing: House Do you presently have visiting nurse or other home services: No Patient Tobacco Use Status: Never used Tobacco Currently Displaying Signs/Symptoms of Drug Intoxication Withdrawal: No Have you been hit, kicked, punched, or otherwise hurt by someone within the past year? If so, by whom?: No Do you feel safe in your current relationship?: No Current Relationship Is there a partner from a previous relationship who is making you feel unsafe now?: No Are you made to feel afraid or neglected: No Advance Directives: No Advance Directives Information Provided: Yes Do you have thoughts of harming others: None Do you have a plan to hurt others: No Plan Recently lost weight without trying: No Nutrition Risks: No Nutritional Risk Poor oral hygiene: No service: No Sexual orientation: Straight/Heterosexual Meds Allergies Allergy/AdvReac Type Severity Reaction Status Date / Time No Known Drug Allergies Allergy Unknown Verified 05/19/25 18:25 Active Medications: Current Medications Acetaminophen (Acetaminophen 325 Mg Tablet) 650 mg PO Q6H PRN PRN Reason: Headache/Pain, Scale 1-10 Al Hydroxide/Mg Hydroxide (Magnesium Hydrox/Alum Hydrox 30 Ml Oral.Susp) 30 ml PO Q6H PRN PRN Reason: Heartburn/Nausea Amantadine HCl (Amantadine Hcl 100 Mg Capsule) 100 mg PO BID [facility] Last Admin: 05/20/25 12:07 Dose: 100 mg Ascorbic Acid (Ascorbic Acid 500 Mg Tablet) 1,000 mg PO DAILY [facility] Last Admin: 05/20/25 10:08 Dose: 1,000 mg Aspirin (Aspirin 81 Mg Tab.Chew) 81 mg PO DAILY [facility] Last Admin: 05/20/25 10:07 Dose: 81 mg Atorvastatin Calcium (Atorvastatin Calcium 20 Mg Tablet) 20 mg PO BEDTIME [facility] Empagliflozin (Empagliflozin 25 Mg Tablet) 25 mg PO DAILY [facility] Last Admin: 05/20/25 10:08 Dose: 25 mg Glipizide (Glipizide Xl 10 Mg Tab.Er.24) 10 mg PO DAILY [facility] Last Admin: 05/20/25 11:13 Dose: 10 mg Hydroxyzine HCl (Hydroxyzine Hcl 25 Mg Tablet) 25 mg PO Q6H PRN PRN Reason: mild anxiety Lamotrigine (Lamotrigine 25 Mg Tablet) 50 mg PO BEDTIME [facility] Hawley Carbonate (Hawley Carbonate Er 300 Mg Tablet.Er) 300 mg PO BEDTIME [facility] Last Admin: 05/19/25 23:05 Dose: 300 mg Lorazepam (Lorazepam 1 Mg Tablet) 1 mg PO Q6H PRN PRN Reason: Anxiety Last Admin: 05/20/25 10:21 Dose: 1 mg Lorazepam (Lorazepam 1 Mg Tablet) 2 mg PO QID [facility] Last Admin: 05/20/25 13:08 Dose: 2 mg Magnesium Hydroxide (Milk Of Magnesia 30 Ml Oral.Susp) 30 ml PO DAILY PRN PRN Reason: Constipation Metformin HCl (Metformin Hcl 1,000 Mg Tablet) 1,000 mg PO BIDWM [facility] Last Admin: 05/20/25 10:08 Dose: 1,000 mg Multivitamins/Vitamin C (Multivitamin Tablet) 1 tab PO DAILY [facility] Last Admin: 05/20/25 10:07 Dose: 1 tab Nicotine (Nicotine 21 Mg Patch.Td24) 21 mg TRANSDERMA DAILY PRN PRN Reason: nicotine craving Nicotine Polacrilex (Nicotine Polacrilex 2 Mg Gum) 2 mg BUCCAL Q2H PRN PRN Reason: Nicotine Cravings Olanzapine (Olanzapine 2.5 Mg Tablet) 2.5 mg PO DAILY PRN On Hold: 05/20/25 11:24 PRN Reason: anxiety/paranoia Olanzapine (Olanzapine 5 Mg Tablet) 5 mg PO BEDTIME KATEY On Hold: 05/20/25 11:24 Last Admin: 05/19/25 23:05 Dose: 5 mg Sertraline HCl (Sertraline Hcl 100 Mg Tablet) 100 mg PO DAILY [facility] Last Admin: 05/20/25 10:08 Dose: 100 mg Trazodone HCl (Trazodone Hcl 50 Mg Tablet) 50 mg PO BEDTIME MRX1 PRN PRN Reason: Insomnia Last Admin: 05/20/25 00:08 Dose: 50 mg Vitamin D (Cholecalciferol (Vitamin D3) 25 Mcg Tablet) 125 mcg PO DAILY [facility] Last Admin: 05/20/25 10:07 Dose: 125 mcg Home Medications ?Medication ?Instructions ?Recorded ?Confirmed ?Last Taken ?Type multivitamin 1 tab PO DAILY 03/01/21 05/19/25 02/28/21 History empagliflozin 25 mg tablet 25 mg PO DAILY 04/29/24 05/19/25 Unknown History (Jardiance) [place] 3 Fish Oil 1,000 mg PO DAILY 05/19/25 05/19/25 Unknown History ascorbic acid (vitamin C) 1,000 mg 1,000 mg PO DAILY 05/19/25 05/19/25 Unknown History tablet (Vitamin C) aspirin 81 mg tablet 81 mg PO DAILY 05/19/25 05/19/25 Unknown History cholecalciferol (vitamin D3) 125 5,000 unit PO DAILY 05/19/25 05/19/25 Unknown History mcg (5,000 unit) tablet lamotrigine 50 mg PO BEDTIME 05/19/25 05/19/25 Unknown History lithium carbonate 300 mg 300 mg PO BEDTIME 05/19/25 05/19/25 Unknown History tablet,extended release (Lithobid) lorazepam 1 mg tablet 1 mg PO Q6H PRN Anxiety 05/19/25 05/19/25 Unknown History Physical Exam Vital Signs and Narrative: Vital Signs: Last Vital Signs Temp 97.5 F 05/20/25 08:00 Pulse 116 H 05/20/25 08:00 Resp 16 05/20/25 08:00 BP 121/90 H 05/20/25 08:00 Pulse Ox 93 05/20/25 08:00 O2 Del Method Room Air 05/20/25 08:00 BMI result Body Mass Index 27.7 Alert and oriented X3, calm and cooperative. Answers questions. Flat affect Neuro: CN II-X11 intact, no deficits, visual acuity intact EYES: PERRLA, EOM intact ENT: Hearing intact, MMM Cardiac: S1 S2 RRR, No ectopy Pulmonary: lungs clear to auscultation, No increased WOB. Abdominal: BS active in all 4 quadrants, no guarding or tenderness MSK: Strength 5/5 upper and lower extremities : Deferred Extremities: No edema in lower extremities Psych: Mood stable, Quiet and cooperative. Skin: Warm and dry, Intact Results Labs 05/20/25 07:44 Labs: Laboratory Results - last 24 hr 05/20/25 07:44 Anion Gap 19 Estim Creat Clear Calc 96.5 Estimated GFR > 60 Random Glucose 120 H Estimat Average Glucose 151 Hemoglobin A1c % 6.9 H Calcium 9.9 Magnesium 2.0 Total Bilirubin 0.7 AST 48 H ALT 80 H Alkaline Phosphatase 91 Total Protein 7.6 Albumin 5.3 H Triglycerides 78 Cholesterol 128 LDL Cholesterol, Calc 58 HDL Cholesterol 55 Vitamin B12 1176 H Folate 16.9 TSH 2.02 Free T4 1.23 Assessment and Plan (1) MDD (major depressive disorder): Status: Acute Plan 54-year-old male with past medical history as listed below presented to the emergency room with increased depression and paranoid delusions. Patient is admitted here for further psychiatric care and plan ECT treatment. Schizoaffective disorder/paranoid delusions/EDMUNDO Treatment per psychiatric team Plan for ECT treatment Type 2 diabetes Continue with metformin, Jardiance, and Glucotrol A1c 6.9 Hyperlipidemia Continue aspirin and Lipitor Lipid panel within normal limits ECT risk stratification Patient without previous problems with anesthesia, has previously undergone ECT RCRI 0 points, no further cardiac workup or treatment indicated at this time based on available information Patient denies any past problems with anesthesia. Outside EKG demonstrates normal sinus rhythm with a QTC of 390, no evidence of ischemic changes. New EKG ordered. Based on stated PMH, HPI, and physical exam, there are no There are no obvious contraindications to the planned procedure.
[2025-05-20 19:59] VITALS: BP 140/83; PULSE 116; RESP 20; TEMP 36.8; O2SAT 97
[2025-05-21 08:00] VITALS: BP 118/87; PULSE 105; RESP 16; TEMP 36.9; O2SAT 97
[2025-05-21] MEDS: glipiZIDE XL 10 MG TAB.ER.24 PO (08:51)
--- NOTE | 2025-05-21 13:46 | P.PNPSI_ITS ---
Subjective Subjective Date of Service: 05/21/25 Reason For Visit: Schizoaffective Disorder Interim History: Met with patient; discussed with team Patient remains paranoid that people on the unit think [he is] a risk.. For being unsafe... Patient says he is feeling very anxious and is not sure how this happened.. He remains amenable to getting ECT and continuing with both Ativan and amantadine. Rn Community discussed clozapine, risks/side effects and he agrees to start Mental Status Exam Mental Status Exam Narrative: Pt is alert and oriented; behavior is disorganized, catatonic symptoms, not talking and just sitting in [address] until medication started; dressed in hospital attire, unkempt; mood is described as anxious and affect congruent; eye contact appropriate; Speech is normal rate, volume and prosody and not pressured; no psychomotor agitation/retardation present; thought process is goal directed but distracted by internal preoccupation; Thought content is on paranoid ideations; denies any SI/HI. Denies AVH but internally preoccupied. Patients insight and judgment impaired Diagnostics Vital Signs (24Hr): Vital Signs - 24 hr 05/20/25 19:59 05/21/25 08:00 Temperature 98.2 F 98.5 F Pulse Rate 116 H 105 H Respiratory Rate 20 16 Blood Pressure 140/83 H 118/87 Pulse Oximetry 97 97 Oxygen Delivery Method Room Air Room Air BMI result Body Mass Index 27.7 Labs 05/20/25 07:44 Labs: Laboratory Results - last 48 hr 05/20/25 07:44 Sodium 140 Potassium 3.9 Chloride 106 Carbon Dioxide 19 L Anion Gap 19 BUN 19 H Creatinine 1.00 Estim Creat Clear Calc 96.5 Estimated GFR > 60 Random Glucose 120 H Estimat Average Glucose 151 Hemoglobin A1c % 6.9 H Calcium 9.9 Magnesium 2.0 Total Bilirubin 0.7 AST 48 H ALT 80 H Alkaline Phosphatase 91 Total Protein 7.6 Albumin 5.3 H Triglycerides 78 Cholesterol 128 LDL Cholesterol, Calc 58 HDL Cholesterol 55 Vitamin B12 1176 H Folate 16.9 TSH 2.02 Free T4 1.23 Medications Medications Current Medications Acetaminophen (Acetaminophen 325 Mg Tablet) 650 mg PO Q6H PRN PRN Reason: Headache/Pain, Scale 1-10 Al Hydroxide/Mg Hydroxide (Magnesium Hydrox/Alum Hydrox 30 Ml Oral.Susp) 30 ml PO Q6H PRN PRN Reason: Heartburn/Nausea Amantadine HCl (Amantadine Hcl 100 Mg Capsule) 100 mg PO BID [facility] Last Admin: 05/21/25 08:51 Dose: 100 mg Ascorbic Acid (Ascorbic Acid 500 Mg Tablet) 1,000 mg PO DAILY [facility] Last Admin: 05/21/25 08:52 Dose: 1,000 mg Aspirin (Aspirin 81 Mg Tab.Chew) 81 mg PO DAILY [facility] Last Admin: 05/21/25 08:53 Dose: 81 mg Atorvastatin Calcium (Atorvastatin Calcium 20 Mg Tablet) 20 mg PO BEDTIME [facility] Last Admin: 05/20/25 20:25 Dose: 20 mg Clozapine (Clozapine 25 Mg Tablet) 25 mg PO BEDTIME [facility] Empagliflozin (Empagliflozin 25 Mg Tablet) 25 mg PO DAILY [facility] Last Admin: 05/21/25 08:53 Dose: 25 mg Glipizide (Glipizide Xl 10 Mg Tab.Er.24) 10 mg PO DAILY [facility] Last Admin: 05/21/25 08:51 Dose: 10 mg Hydroxyzine HCl (Hydroxyzine Hcl 25 Mg Tablet) 25 mg PO Q6H PRN PRN Reason: mild anxiety Lamotrigine (Lamotrigine 25 Mg Tablet) 50 mg PO BEDTIME [facility] Last Admin: 05/20/25 20:25 Dose: 50 mg [place] Carbonate ([place] Carbonate Er 300 Mg Tablet.Er) 300 mg PO BEDTIME [facility] Last Admin: 05/20/25 20:25 Dose: 300 mg Lorazepam (Lorazepam 1 Mg Tablet) 1 mg PO Q6H PRN PRN Reason: Anxiety Last Admin: 05/20/25 10:21 Dose: 1 mg Lorazepam (Lorazepam 1 Mg Tablet) 2 mg PO QID [facility] Last Admin: 05/21/25 08:49 Dose: 2 mg Magnesium Hydroxide (Milk Of Magnesia 30 Ml Oral.Susp) 30 ml PO DAILY PRN PRN Reason: Constipation Metformin HCl (Metformin Hcl 1,000 Mg Tablet) 1,000 mg PO BIDWM [facility] Last Admin: 05/21/25 08:52 Dose: 1,000 mg Multivitamins/Vitamin C (Multivitamin Tablet) 1 tab PO DAILY [facility] Last Admin: 05/21/25 08:51 Dose: 1 tab Nicotine (Nicotine 21 Mg Patch.Td24) 21 mg TRANSDERMA DAILY PRN PRN Reason: nicotine craving Nicotine Polacrilex (Nicotine Polacrilex 2 Mg Gum) 2 mg BUCCAL Q2H PRN PRN Reason: Nicotine Cravings Olanzapine (Olanzapine 2.5 Mg Tablet) 2.5 mg PO DAILY PRN On Hold: 05/20/25 11:24 PRN Reason: anxiety/paranoia Olanzapine (Olanzapine 5 Mg Tablet) 5 mg PO BEDTIME [facility] On Hold: 05/20/25 11:24 Last Admin: 05/19/25 23:05 Dose: 5 mg Sertraline HCl (Sertraline Hcl 100 Mg Tablet) 100 mg PO DAILY [facility] Last Admin: 05/21/25 08:48 Dose: 100 mg Trazodone HCl (Trazodone Hcl 50 Mg Tablet) 50 mg PO BEDTIME [facility]X1 PRN PRN Reason: Insomnia Last Admin: 05/20/25 00:08 Dose: 50 mg Vitamin D (Cholecalciferol (Vitamin D3) 25 Mcg Tablet) 125 mcg PO MoFr@0900 [facility] Allergies Allergies Allergy/AdvReac Type Severity Reaction Status Date / Time No Known Drug Allergies Allergy Unknown Verified 05/19/25 18:25 Assessment & Plan Assessment & Plan (1) MDD (major depressive disorder): Status: Acute Code(s): F32.9 - Major depressive disorder, single episode, unspecified Plan HPI: Patient is a 54-year-old male with history of bipolar disorder, catatonia who presents as a transfer from hospital on [facility] coming to [facility] [place] for ECT in the face of catatonia following a manic episode. Patient with significant catatonic features having a difficult time talking or moving until comic writer started patient on Ativan and amantadine. Patient says that he ended up coming to the hospital because he had paranoid, racing thoughts that people Were out to get me. Patient says he had some issues with his finances, Internet addiction and that people on it took him for a lot of money. He said his family is upset and suggested he go to the hospital. Patient reports that for some amount of that time he was having what sounds like a manic episode, with increased libido, mind racing, blurting out his thoughts, and high energy. Patient said he is still feeling some paranoid thoughts, like when he drove here to the hospital from [facility], thinking people in the other cars with looking at him, maybe people were trying to harm him because .of some of the things I have done.. Though patient could not articulate what those were. He also said that he has been thinking maybe his son and daughter are not who he thinks they are and that maybe his was a plant meaning a set up by some conspiracy when they met. Patient open to reality testing but mostly thinks these things are true. Currently denies AH but says he was having AH days earlier; continues to worry that perhaps people want to harm him; denies any SI or HI. Discussed ECT as treatment and patient agrees, after going over risks/side effects. Also discussed medication and he agrees to continue with Ativan and amantadine (reviewed risks/side-effects) Impression: Patient with both catatonic symptoms and paranoid ideations; catatonia seems to be significantly helped with Ativan and Amantadine which hopefully bridge him until he can get ECT. Holding Zyprexa which he has been taking for years, to mitigate risks of catatonia. Will consider Clozaril 05/21 Patient remains paranoid that people on the unit think [he is] a risk.. For being unsafe... Patient says he is feeling very anxious and is not sure how this happened.. He remains amenable to getting ECT and continuing with both Ativan and amantadine. Rn Community discussed clozapine, risks/side effects and he agrees to start -patient took shower today and attended a group Plan: CV q15min Continue Amantadine 100mg bid (for catatonia) Continued 2mg qid (for catatonia) Start clozapine 25 mg q.h.s.(to help with psychotic symptoms and catatonia) hold zyprexa ECT pending Type 2 diabetes Continue with metformin, Jardiance, and Glucotrol A1c 6.9 Hyperlipidemia Continue aspirin and Lipitor Lipid panel within normal limits ECT risk stratification Patient without previous problems with anesthesia, has previously undergone ECT RCRI 0 points, no further cardiac workup or treatment indicated at this time based on available information Patient denies any past problems with anesthesia. Outside EKG demonstrates normal sinus rhythm with a QTC of 390, no evidence of ischemic changes. New EKG ordered. Based on stated PMH, HPI, and physical exam, there are no There are no obvious contraindications to the planned procedure. Patient educated on: diagnosis and medication risk/benefits Informed Consent: understands, does not understand and further education needed Reason for continued inpatient stay Substantial Risk for: rapid decompensation Time Spent With Patient Time: Total time managing care of this patient today ____ minutes.
[2025-05-21 14:16] LABS: Neut%MD 70.4 %; WBCANC 10.4 X10*3/uL
[2025-05-21 19:48] VITALS: BP 122/72; PULSE 108; RESP 18; TEMP 36.4; O2SAT 97
[2025-05-22 07:00] VITALS: BMI 27.5
[2025-05-22 08:00] VITALS: BP 138/88; PULSE 108; RESP 16; TEMP 2.7; TEMP 36.9; O2SAT 94
[2025-05-22] MEDS: glipiZIDE XL 10 MG TAB.ER.24 PO (08:40)
--- NOTE | 2025-05-22 11:05 | HO.PSYCHPN ---
Subjective Subjective Date of Service: 05/22/25 Reason For Visit: Schizoaffective Disorder Interim History: Met with patient; discussed with team; reviewing chart from [facility] Patient says he is feeling more anxious and paranoid today which he thinks is partly due to the nightmares he had last night a people grabbing him. Patient lists his plans for the day which include showering, shaving and attending group. Patient wanted to review medications which was done and he continues to agree with plan including continued titration with clozapine. Talked about lithium which he had not been on before and seems to have been started at [facility] and patient agrees to hold this for now. Discussed case with Dr. Rosado who agrees that patient's catatonia seems to be stabilized with medications for now but plan remains to proceed with ECT. Mental Status Exam Mental Status Exam Narrative: Pt is alert and oriented; behavior is anxious but overall calm and cooperative and friendly on approach; patient is not in distress; dressed in hospital attire with unkempt hair, scruffy facial hair but adequate hygiene; mood is described as anxious and affect congruent; eye contact appropriate; Speech is a little measured; normal volume, not pressured; some psychomotor retardation present; thought process is goal directed but gets distracted and goes off topic; Thought content is paranoid ideations; treatment; concerns that people may try to harm him; denies any SI/HI. Denies AVH though patient is internally preoccupied Patients insight and judgment impaired Diagnostics Vital Signs (24Hr): Vital Signs - 24 hr 05/21/25 19:48 05/22/25 08:00 Temperature 97.5 F 36.9 F L Pulse Rate 108 H 108 H Respiratory Rate 18 16 Blood Pressure 122/72 138/88 Pulse Oximetry 97 94 Oxygen Delivery Method Room Air Room Air BMI result Body Mass Index 27.7 Labs 05/20/25 07:44 Labs: Laboratory Results - last 48 hr 05/21/25 14:07 Absolute Neuts (auto) 7.3 Medications Medications Current Medications Acetaminophen (Acetaminophen 325 Mg Tablet) 650 mg PO Q6H PRN PRN Reason: Headache/Pain, Scale 1-10 Al Hydroxide/Mg Hydroxide (Magnesium Hydrox/Alum Hydrox 30 Ml Oral.Susp) 30 ml PO Q6H PRN PRN Reason: Heartburn/Nausea Amantadine HCl (Amantadine Hcl 100 Mg Capsule) 100 mg PO BID [facility] Last Admin: 05/22/25 08:41 Dose: 100 mg Ascorbic Acid (Ascorbic Acid 500 Mg Tablet) 1,000 mg PO DAILY [facility] Last Admin: 05/22/25 08:40 Dose: 1,000 mg Aspirin (Aspirin 81 Mg Tab.Chew) 81 mg PO DAILY [facility] Last Admin: 05/22/25 08:40 Dose: 81 mg Atorvastatin Calcium (Atorvastatin Calcium 20 Mg Tablet) 20 mg PO BEDTIME [facility] Last Admin: 05/21/25 21:30 Dose: 20 mg Clozapine (Clozapine 25 Mg Tablet) 50 mg PO BEDTIME [facility] Empagliflozin (Empagliflozin 25 Mg Tablet) 25 mg PO DAILY [facility] Last Admin: 05/22/25 08:41 Dose: 25 mg Glipizide (Glipizide Xl 10 Mg Tab.Er.24) 10 mg PO DAILY [facility] Last Admin: 05/22/25 08:40 Dose: 10 mg Hydroxyzine HCl (Hydroxyzine Hcl 25 Mg Tablet) 25 mg PO Q6H PRN PRN Reason: mild anxiety Last Admin: 05/21/25 22:19 Dose: 25 mg Lamotrigine (Lamotrigine 25 Mg Tablet) 50 mg PO BEDTIME [facility] Last Admin: 05/21/25 21:31 Dose: 50 mg [place] Carbonate ([place] Carbonate Er 300 Mg Tablet.Er) 300 mg PO BEDTIME [facility] Last Admin: 05/21/25 21:31 Dose: 300 mg Lorazepam (Lorazepam 1 Mg Tablet) 2 mg PO QID [facility] Last Admin: 05/22/25 08:40 Dose: 2 mg Magnesium Hydroxide (Milk Of Magnesia 30 Ml Oral.Susp) 30 ml PO DAILY PRN PRN Reason: Constipation Metformin HCl (Metformin Hcl 1,000 Mg Tablet) 1,000 mg PO BIDWM [facility] Last Admin: 05/22/25 08:41 Dose: 1,000 mg Multivitamins/Vitamin C (Multivitamin Tablet) 1 tab PO DAILY [facility] Last Admin: 05/22/25 08:40 Dose: 1 tab Nicotine (Nicotine 21 Mg Patch.Td24) 21 mg TRANSDERMA DAILY PRN PRN Reason: nicotine craving Nicotine Polacrilex (Nicotine Polacrilex 2 Mg Gum) 2 mg BUCCAL Q2H PRN PRN Reason: Nicotine Cravings Sertraline HCl (Sertraline Hcl 100 Mg Tablet) 100 mg PO DAILY [facility] Last Admin: 05/22/25 08:41 Dose: 100 mg Trazodone HCl (Trazodone Hcl 50 Mg Tablet) 50 mg PO BEDTIME MRX1 PRN PRN Reason: Insomnia Last Admin: 05/21/25 22:19 Dose: 50 mg Vitamin D (Cholecalciferol (Vitamin D3) 25 Mcg Tablet) 125 mcg PO MoFr@0900 [facility] Allergies Allergies Allergy/AdvReac Type Severity Reaction Status Date / Time No Known Drug Allergies Allergy Unknown Verified 05/19/25 18:25 Assessment & Plan Assessment & Plan (1) MDD (major depressive disorder): Status: Acute Code(s): F32.9 - Major depressive disorder, single episode, unspecified Plan HPI: Patient is a 54-year-old male with history of bipolar disorder, catatonia who presents as a transfer from hospital on [facility] coming to [facility] [place] for ECT in the face of catatonia following a manic episode. Patient with significant catatonic features having a difficult time talking or moving until software writer started patient on Ativan and amantadine. Patient says that he ended up coming to the hospital because he had paranoid, racing thoughts that people Were out to get me. Patient says he had some issues with his finances, Internet addiction and that people on it took him for a lot of money. He said his family is upset and suggested he go to the hospital. Patient reports that for some amount of that time he was having what sounds like a manic episode, with increased libido, mind racing, blurting out his thoughts, and high energy. Patient said he is still feeling some paranoid thoughts, like when he drove here to the hospital from [facility], thinking people in the other cars with looking at him, maybe people were trying to harm him because .of some of the things I have done.. Though patient could not articulate what those were. He also said that he has been thinking maybe his son and daughter are not who he thinks they are and that maybe his was a plant meaning a set up by some conspiracy when they met. Patient open to reality testing but mostly thinks these things are true. Currently denies AH but says he was having AH days earlier; continues to worry that perhaps people want to harm him; denies any SI or HI. Discussed ECT as treatment and patient agrees, after going over risks/side effects. Also discussed medication and he agrees to continue with Ativan and amantadine (reviewed risks/side-effects) Impression: Patient with both catatonic symptoms and paranoid ideations; catatonia seems to be significantly helped with Ativan and Amantadine which hopefully bridge him until he can get ECT. Holding Zyprexa which he has been taking for years, to mitigate risks of catatonia. Will consider Clozaril 05/21 Patient remains paranoid that people on the unit think [he is] a risk.. For being unsafe... Patient says he is feeling very anxious and is not sure how this happened.. He remains amenable to getting ECT and continuing with both Ativan and amantadine. Chronometer Repairer discussed clozapine, risks/side effects and he agrees to start -patient took shower today and attended a group 05/22 Patient says he is feeling more anxious and paranoid today which he thinks is partly due to the nightmares he had last night a people grabbing him. Patient lists his plans for the day which include showering, shaving and attending group. Patient wanted to review medications which was done and he continues to agree with plan including continued titration with clozapine. Talked about lithium which he had not been on before and seems to have been started at [facility] and patient agrees to hold this for now. -Discussed case with Dr. Rosado who agrees that patient's catatonia seems to be stabilized with medications for now but plan remains to proceed with ECT as patient is fragile and highly vulnerable to decompensation (patient has history of severe catatonia). -will continue to titrate clozapine as it can treat delusions, catatonia and act as a mood stabilizer -will hold lithium; only at 300 mg which is subtherapeutic dose can increase risk of side effects during ECT -will continue Lamictal 25 mg for now and assess whether not this is necessary Plan: CV q15min Continue Amantadine 100mg bid (for catatonia) Continued 2mg qid (for catatonia) Increase clozapine 50 mg q.h.s.; will continue to titrate (for psychotic symptoms, catatonia and mood stability) hold zyprexa: Since risks catatonic symptoms Hold lithium: Subtherapeutic and can increase side effects during ECT ECT pending Type 2 diabetes Continue with metformin, Jardiance, and Glucotrol A1c 6.9 Hyperlipidemia Continue aspirin and Lipitor Lipid panel within normal limits ECT risk stratification Patient without previous problems with anesthesia, has previously undergone ECT RCRI 0 points, no further cardiac workup or treatment indicated at this time based on available information Patient denies any past problems with anesthesia. Outside EKG demonstrates normal sinus rhythm with a QTC of 390, no evidence of ischemic changes. New EKG ordered. Based on stated PMH, HPI, and physical exam, there are no There are no obvious contraindications to the planned procedure. Patient educated on: diagnosis, medication risk/benefits and ECT Informed Consent: understands, does not understand and further education needed Reason for continued inpatient stay Substantial Risk for: inability to function Time Spent With Patient Time: Total time managing care of this patient today ____ minutes.
[2025-05-22 20:00] VITALS: BP 121/61; PULSE 95; RESP 18; TEMP 36.8; O2SAT 95
[2025-05-23 08:00] VITALS: BP 150/87; PULSE 98; RESP 16; TEMP 36.9; O2SAT 95
[2025-05-23] MEDS: glipiZIDE XL 10 MG TAB.ER.24 PO (09:21)
--- NOTE | 2025-05-23 15:01 | P.PNPSI_ITS ---
Subjective Subjective Date of Service: 06/25/25 Reason For Visit: Schizoaffective Disorder Interim History: Met with patient; discussed with team Remains [id number] paranoid of peers; remains confused had trouble remembering why he was on the unit however seemed to respond to education and reminder that when he was 1st here, was not talking, eating or moving. Again discussed medications and patient agrees with continued plan including clozapine and ECT Mental Status Exam Mental Status Exam Narrative: Pt is alert and oriented; behavior is anxious but overall calm and cooperative and friendly on approach; patient is not in distress; dressed in hospital attire with unkempt hair, scruffy facial hair but adequate hygiene; mood is described as confused and affect congruent; eye contact appropriate; Speech is a little measured; normal volume, not pressured; some psychomotor retardation present; thought process is goal directed but gets distracted and goes off topic; Thought content is paranoid ideations; treatment; concerns that people may try to harm him; denies any SI/HI. Denies AVH though patient is internally preoccupied Patients insight and judgment impaired Diagnostics Vital Signs (24Hr): Vital Signs - 24 hr 05/22/25 20:00 05/23/25 08:00 Temperature 98.2 F 98.4 F Pulse Rate 95 98 Respiratory Rate 18 16 Blood Pressure 121/61 150/87 H Pulse Oximetry 95 95 Oxygen Delivery Method Room Air Room Air BMI result Body Mass Index 27.5 Labs 05/20/25 07:44 Medications Medications Current Medications Acetaminophen (Acetaminophen 325 Mg Tablet) 650 mg PO Q6H PRN PRN Reason: Headache/Pain, Scale 1-10 Last Admin: 05/23/25 09:33 Dose: 650 mg Al Hydroxide/Mg Hydroxide (Magnesium Hydrox/Alum Hydrox 30 Ml Oral.Susp) 30 ml PO Q6H PRN PRN Reason: Heartburn/Nausea Amantadine HCl (Amantadine Hcl 100 Mg Capsule) 100 mg PO BID [facility] Last Admin: 05/23/25 09:23 Dose: 100 mg Ascorbic Acid (Ascorbic Acid 500 Mg Tablet) 1,000 mg PO DAILY [facility] Last Admin: 05/23/25 09:23 Dose: 1,000 mg Aspirin (Aspirin 81 Mg Tab.Chew) 81 mg PO DAILY [facility] Last Admin: 05/23/25 09:22 Dose: 81 mg Atorvastatin Calcium (Atorvastatin Calcium 20 Mg Tablet) 20 mg PO BEDTIME [facility] Last Admin: 05/22/25 22:41 Dose: 20 mg Clozapine (Clozapine 25 Mg Tablet) 75 mg PO BEDTIME [facility] Empagliflozin (Empagliflozin 25 Mg Tablet) 25 mg PO DAILY [facility] Last Admin: 05/23/25 09:23 Dose: 25 mg Glipizide (Glipizide Xl 10 Mg Tab.Er.24) 10 mg PO DAILY [facility] Last Admin: 05/23/25 09:21 Dose: 10 mg Hydroxyzine HCl (Hydroxyzine Hcl 25 Mg Tablet) 25 mg PO Q6H PRN PRN Reason: mild anxiety Last Admin: 05/21/25 22:19 Dose: 25 mg Lamotrigine (Lamotrigine 25 Mg Tablet) 50 mg PO BEDTIME [facility] Last Admin: 05/22/25 22:41 Dose: 50 mg Dales Carbonate (Dales Carbonate Er 300 Mg Tablet.Er) 300 mg PO BEDTIME [facility] On Hold: 05/22/25 11:04 Last Admin: 05/21/25 21:31 Dose: 300 mg Lorazepam (Lorazepam 1 Mg Tablet) 2 mg PO QID [facility] Last Admin: 05/23/25 09:22 Dose: 2 mg Magnesium Hydroxide (Milk Of Magnesia 30 Ml Oral.Susp) 30 ml PO DAILY PRN PRN Reason: Constipation Metformin HCl (Metformin Hcl 1,000 Mg Tablet) 1,000 mg PO BIDWM [facility] Last Admin: 05/23/25 09:22 Dose: 1,000 mg Multivitamins/Vitamin C (Multivitamin Tablet) 1 tab PO DAILY [facility] Last Admin: 05/23/25 09:22 Dose: 1 tab Nicotine (Nicotine 21 Mg Patch.Td24) 21 mg TRANSDERMA DAILY PRN PRN Reason: nicotine craving Nicotine Polacrilex (Nicotine Polacrilex 2 Mg Gum) 2 mg BUCCAL Q2H PRN PRN Reason: Nicotine Cravings Sertraline HCl (Sertraline Hcl 100 Mg Tablet) 100 mg PO DAILY [facility] Last Admin: 05/23/25 09:21 Dose: 100 mg Trazodone HCl (Trazodone Hcl 50 Mg Tablet) 50 mg PO BEDTIME MRX1 PRN PRN Reason: Insomnia Last Admin: 05/21/25 22:19 Dose: 50 mg Vitamin D (Cholecalciferol (Vitamin D3) 25 Mcg Tablet) 125 mcg PO MoFr@0900 [facility] Last Admin: 05/23/25 09:22 Dose: 125 mcg Allergies Allergies Allergy/AdvReac Type Severity Reaction Status Date / Time No Known Drug Allergies Allergy Unknown Verified 05/19/25 18:25 Assessment & Plan Assessment & Plan (1) MDD (major depressive disorder): Status: Acute Code(s): F32.9 - Major depressive disorder, single episode, unspecified Plan HPI: Patient is a 54-year-old male with history of bipolar disorder, catatonia who presents as a transfer from hospital on [facility] coming to [facility] for ECT in the face of catatonia following a manic episode. Patient with significant catatonic features having a difficult time talking or moving until instructional writer started patient on Ativan and amantadine. Patient says that he ended up coming to the hospital because he had paranoid, racing thoughts that people Were out to get me. Patient says he had some issues with his finances, Internet addiction and that people on it took him for a lot of money. He said his family is upset and suggested he go to the hospital. Patient reports that for some amount of that time he was having what sounds like a manic episode, with increased libido, mind racing, blurting out his thoughts, and high energy. Patient said he is still feeling some paranoid thoughts, like when he drove here to the hospital from [facility], thinking people in the other cars with looking at him, maybe people were trying to harm him because .of some of the things I have done.. Though patient could not articulate what those were. He also said that he has been thinking maybe his son and daughter are not who he thinks they are and that maybe his was a plant meaning a set up by some conspiracy when they met. Patient open to reality testing but mostly thinks these things are true. Currently denies AH but says he was having AH days earlier; continues to worry that perhaps people want to harm him; denies any SI or HI. Discussed ECT as treatment and patient agrees, after going over risks/side effects. Also discussed medication and he agrees to continue with Ativan and amantadine (reviewed risks/side-effects) Impression: Patient with both catatonic symptoms and paranoid ideations; catatonia seems to be significantly helped with Ativan and Amantadine which hopefully bridge him until he can get ECT. Holding Zyprexa which he has been taking for years, to mitigate risks of catatonia. Will consider Clozaril 05/21 Patient remains paranoid that people on the unit think [he is] a risk.. For being unsafe... Patient says he is feeling very anxious and is not sure how this happened.. He remains amenable to getting ECT and continuing with both Ativan and amantadine. Coremaker discussed clozapine, risks/side effects and he agrees to start -patient took shower today and attended a group 05/22 Patient says he is feeling more anxious and paranoid today which he thinks is partly due to the nightmares he had last night a people grabbing him. Patient lists his plans for the day which include showering, shaving and attending group. Patient wanted to review medications which was done and he continues to agree with plan including continued titration with clozapine. Talked about lithium which he had not been on before and seems to have been started at [facility] and patient agrees to hold this for now. -Discussed case with Dr. Rosado who agrees that patient's catatonia seems to be stabilized with medications for now but plan remains to proceed with ECT as patient is fragile and highly vulnerable to decompensation (patient has history of severe catatonia). -will continue to titrate clozapine as it can treat delusions, catatonia and act as a mood stabilizer -will hold lithium; only at 300 mg which is subtherapeutic dose can increase risk of side effects during ECT -will continue Lamictal 25 mg for now and assess whether not this is necessary 05/23 continue titrate clozapine; ECT planned for Monday -will titrate Clozapine by 25mg a day Plan: CV q15min Continue Amantadine 100mg bid (for catatonia) Continued 2mg qid (for catatonia) Increase clozapine 75 mg q.h.s.; will continue to titrate (for psychotic symptoms, catatonia and mood stability) hold zyprexa: Since risks catatonic symptoms Hold lithium: Subtherapeutic and can increase side effects during ECT ECT pending Type 2 diabetes Continue with metformin, Jardiance, and Glucotrol A1c 6.9 Hyperlipidemia Continue aspirin and Lipitor Lipid panel within normal limits ECT risk stratification Patient without previous problems with anesthesia, has previously undergone ECT RCRI 0 points, no further cardiac workup or treatment indicated at this time based on available information Patient denies any past problems with anesthesia. Outside EKG demonstrates normal sinus rhythm with a QTC of 390, no evidence of ischemic changes. New EKG ordered. Based on stated PMH, HPI, and physical exam, there are no There are no obvious contraindications to the planned procedure. Patient educated on: diagnosis, medication risk/benefits, ECT and therapeutic strategies Informed Consent: understands, does not understand and further education needed Reason for continued inpatient stay Substantial Risk for: inability to function Time Spent With Patient Time: Total time managing care of this patient today ____ minutes.
[2025-05-24 08:30] VITALS: BP 110/71; PULSE 75; RESP 18; TEMP 36.6; O2SAT 96
[2025-05-24] MEDS: glipiZIDE XL 10 MG TAB.ER.24 PO (08:40)
--- NOTE | 2025-05-24 10:14 | P.PNPSI_ITS ---
Documented by User: Nusrat Keene, DISTRICT ENGINEER 05/24/25 17:55 Subjective Subjective Date of Service: 05/24/25 Reason For Visit: Schizoaffective Disorder Subjective Notes: Conditional Voluntary Healthcare Proxy: No Guardianship: No Medical Problems Affecting Mental Status: No Interim History: Review with team, review of plan of care, met with pt x 2. Reports difficult sx, racing of thought- chlorpromazine prn ordered temporarily to help with sx mgt. Pt asked to meet later in the day with significant paranoia, I worked with you in [facility], why are you here? Explained and encouraged pt to utilize team and regime to help manage sx. Pt reports I will not hurt myself or anyone else, will anyone hurt me here? Assured pt he was safe on the unit. Thought blocking noted. Medication Compliance: Yes Side effects from medications: No Attending Groups: No Review of Systems Acute medical concerns: No Medical Review of Systems: unchanged Review of Systems Review of Systems no Mental Status Exam Mental Status Exam Patient Appearance: Fatigued Patient Orientation: Person, Place and Situation Level of Consciousness: Alert Patient Behavior: Guarded, Talkative, Suspicious and Distractible Mood Description: Constricted and Fearful Affect Description: Fearful and Flat Patient Cognition Impaired: No Ability to Follow Directions: Good Speech Pattern: Spontaneous Speech Memory Description: Remote Impaired Hallucinations: None (denies, however then reports a lot going on in his head, racing of thought) Delusions: Paranoid Ideation and Present Thought Process: Racing, Illogical, Distracted and Rumination Thought Content: positive for Racing, positive for Perseveration, positive for Thought Blocking, positive for Suicidal Ideation (denies) and positive for Homicidal Ideation (denies) Depressive Symptoms: Difficulty Concentrating Judgement: Poor Diagnostics Vital Signs (24Hr): Vital Signs - 24 hr 05/24/25 08:30 Temperature 97.8 F Pulse Rate 75 Respiratory Rate 18 Blood Pressure 110/71 Pulse Oximetry 96 Oxygen Delivery Method Room Air BMI result Body Mass Index 27.5 Labs 05/20/25 07:44 Medications Medications Current Medications Acetaminophen (Acetaminophen 325 Mg Tablet) 650 mg PO Q6H PRN PRN Reason: Headache/Pain, Scale 1-10 Last Admin: 05/23/25 09:33 Dose: 650 mg Al Hydroxide/Mg Hydroxide (Magnesium Hydrox/Alum Hydrox 30 Ml Oral.Susp) 30 ml PO Q6H PRN PRN Reason: Heartburn/Nausea Amantadine HCl (Amantadine Hcl 100 Mg Capsule) 100 mg PO BID [facility] Last Admin: 05/24/25 08:41 Dose: 100 mg Ascorbic Acid (Ascorbic Acid 500 Mg Tablet) 1,000 mg PO DAILY [facility] Last Admin: 05/24/25 08:40 Dose: 1,000 mg Aspirin (Aspirin 81 Mg Tab.Chew) 81 mg PO DAILY [facility] Last Admin: 05/24/25 08:40 Dose: 81 mg Atorvastatin Calcium (Atorvastatin Calcium 20 Mg Tablet) 20 mg PO BEDTIME [facility] Last Admin: 05/23/25 20:01 Dose: 20 mg Clozapine (Clozapine 25 Mg Tablet) 75 mg PO BEDTIME [facility] Last Admin: 05/23/25 20:01 Dose: 75 mg Empagliflozin (Empagliflozin 25 Mg Tablet) 25 mg PO DAILY [facility] Last Admin: 05/24/25 08:40 Dose: 25 mg Glipizide (Glipizide Xl 10 Mg Tab.Er.24) 10 mg PO DAILY [facility] Last Admin: 05/24/25 08:40 Dose: 10 mg Hydroxyzine HCl (Hydroxyzine Hcl 25 Mg Tablet) 25 mg PO Q6H PRN PRN Reason: mild anxiety Last Admin: 05/21/25 22:19 Dose: 25 mg Lamotrigine (Lamotrigine 25 Mg Tablet) 50 mg PO BEDTIME [facility] Last Admin: 05/23/25 20:00 Dose: 50 mg [place] Carbonate (Rainsburg Carbonate Er 300 Mg Tablet.Er) 300 mg PO BEDTIME [facility] On Hold: 05/22/25 11:04 Last Admin: 05/21/25 21:31 Dose: 300 mg Lorazepam (Lorazepam 1 Mg Tablet) 2 mg PO QID [facility] Last Admin: 05/24/25 08:41 Dose: 2 mg Magnesium Hydroxide (Milk Of Magnesia 30 Ml Oral.Susp) 30 ml PO DAILY PRN PRN Reason: Constipation Metformin HCl (Metformin Hcl 1,000 Mg Tablet) 1,000 mg PO BIDWM [facility] Last Admin: 05/24/25 08:41 Dose: 1,000 mg Multivitamins/Vitamin C (Multivitamin Tablet) 1 tab PO DAILY [facility] Last Admin: 05/24/25 08:41 Dose: 1 tab Nicotine (Nicotine 21 Mg Patch.Td24) 21 mg TRANSDERMA DAILY PRN PRN Reason: nicotine craving Nicotine Polacrilex (Nicotine Polacrilex 2 Mg Gum) 2 mg BUCCAL Q2H PRN PRN Reason: Nicotine Cravings Sertraline HCl (Sertraline Hcl 100 Mg Tablet) 100 mg PO DAILY [facility] Last Admin: 05/24/25 08:41 Dose: 100 mg Trazodone HCl (Trazodone Hcl 50 Mg Tablet) 50 mg PO BEDTIME MRX1 PRN PRN Reason: Insomnia Last Admin: 05/21/25 22:19 Dose: 50 mg Vitamin D (Cholecalciferol (Vitamin D3) 25 Mcg Tablet) 125 mcg PO MoFr@0900 [facility] Last Admin: 05/23/25 09:22 Dose: 125 mcg Allergies Allergies Allergy/AdvReac Type Severity Reaction Status Date / Time No Known Drug Allergies Allergy Unknown Verified 05/19/25 18:25 Assessment & Plan Assessment & Plan (1) MDD (major depressive disorder): Status: Acute Code(s): F32.9 - Major depressive disorder, single episode, unspecified Plan HPI: Patient is a 54-year-old male with history of bipolar disorder, catatonia who presents as a transfer from hospital on [facility] coming to [facility] for ECT in the face of catatonia following a manic episode. Patient with significant catatonic features having a difficult time talking or moving until adjusto writer operator started patient on Ativan and amantadine. Patient says that he ended up coming to the hospital because he had paranoid, racing thoughts that people Were out to get me. Patient says he had some issues with his finances, Internet addiction and that people on it took him for a lot of money. He said his family is upset and suggested he go to the hospital. Patient reports that for some amount of that time he was having what sounds like a manic episode, with increased libido, mind racing, blurting out his thoughts, and high energy. Patient said he is still feeling some paranoid thoughts, like when he drove here to the hospital from [facility], thinking people in the other cars with looking at him, maybe people were trying to harm him because .of some of the things I have done.. Though patient could not articulate what those were. He also said that he has been thinking maybe his son and daughter are not who he thinks they are and that maybe his was a plant meaning a set up by some conspiracy when they met. Patient open to reality testing but mostly thinks these things are true. Currently denies AH but says he was having AH days earlier; continues to worry that perhaps people want to harm him; denies any SI or HI. Discussed ECT as treatment and patient agrees, after going over risks/side effects. Also discussed medication and he agrees to continue with Ativan and amantadine (reviewed risks/side-effects) Impression: Patient with both catatonic symptoms and paranoid ideations; catatonia seems to be significantly helped with Ativan and Amantadine which hopefully bridge him until he can get ECT. Holding Zyprexa which he has been taking for years, to mitigate risks of catatonia. Will consider Clozaril 05/21 Patient remains paranoid that people on the unit think [he is] a risk.. For being unsafe... Patient says he is feeling very anxious and is not sure how this happened.. He remains amenable to getting ECT and continuing with both Ativan and amantadine. Electric Welder Helper discussed clozapine, risks/side effects and he agrees to start -patient took shower today and attended a group 05/22 Patient says he is feeling more anxious and paranoid today which he thinks is partly due to the nightmares he had last night a people grabbing him. Patient lists his plans for the day which include showering, shaving and attending group. Patient wanted to review medications which was done and he continues to agree with plan including continued titration with clozapine. Talked about lithium which he had not been on before and seems to have been started at [facility] and patient agrees to hold this for now. -Discussed case with Dr. Rosado who agrees that patient's catatonia seems to be stabilized with medications for now but plan remains to proceed with ECT as patient is fragile and highly vulnerable to decompensation (patient has history of severe catatonia). -will continue to titrate clozapine as it can treat delusions, catatonia and act as a mood stabilizer -will hold lithium; only at 300 mg which is subtherapeutic dose can increase risk of side effects during ECT -will continue Lamictal 25 mg for now and assess whether not this is necessary 05/23 continue titrate clozapine; ECT planned for Monday -will titrate Clozapine by 25mg a day 05/24/25 Review with team, review of plan of care, met with pt x 2. Reports difficult sx, racing of thought- chlorpromazine prn ordered temporarily to help with sx mgt. Pt asked to meet later in the day with significant paranoia, I worked with you in [facility], why are you here? Explained and encouraged pt to utilize team and regime to help manage sx. Pt reports I will not hurt myself or anyone else, will anyone hurt me here? Assured pt he was safe on the unit. Thought blocking noted. Plan: Chlorpromazine prn Plan: CV q15min Continue Amantadine 100mg bid (for catatonia) Continued 2mg qid (for catatonia) Increase clozapine 75 mg q.h.s.; will continue to titrate (for psychotic symptoms, catatonia and mood stability) hold zyprexa: Since risks catatonic symptoms Hold lithium: Subtherapeutic and can increase side effects during ECT ECT pending Type 2 diabetes Continue with metformin, Jardiance, and Glucotrol A1c 6.9 Hyperlipidemia Continue aspirin and Lipitor Lipid panel within normal limits ECT risk stratification Patient without previous problems with anesthesia, has previously undergone ECT RCRI 0 points, no further cardiac workup or treatment indicated at this time based on available information Patient denies any past problems with anesthesia. Outside EKG demonstrates normal sinus rhythm with a QTC of 390, no evidence of ischemic changes. New EKG ordered. Based on stated PMH, HPI, and physical exam, there are no There are no obvious contraindications to the planned procedure. Reason for continued inpatient stay Substantial Risk for: rapid decompensation Time Spent With Patient Time: Total time managing care of this patient today ____ minutes. Documented by User: Fredo Prieto MD 05/26/25 09:53 Subjective Subjective Reason For Visit: Schizoaffective Disorder Diagnostics Labs 05/20/25 07:44 Assessment & Plan Assessment & Plan (1) MDD (major depressive disorder): Status: Acute Code(s): F32.9 - Major depressive disorder, single episode, unspecified Plan HPI: Patient is a 54-year-old male with history of bipolar disorder, catatonia who presents as a transfer from hospital on [facility] coming to [facility] for ECT in the face of catatonia following a manic episode. Patient with significant catatonic features having a difficult time talking or moving until adjusto writer operator started patient on Ativan and amantadine. Patient says that he ended up coming to the hospital because he had paranoid, racing thoughts that people Were out to get me. Patient says he had some issues with his finances, Internet addiction and that people on it took him for a lot of money. He said his family is upset and suggested he go to the hospital. Patient reports that for some amount of that time he was having what sounds like a manic episode, with increased libido, mind racing, blurting out his thoughts, and high energy. Patient said he is still feeling some paranoid thoughts, like when he drove here to the hospital from [facility], thinking people in the other cars with looking at him, maybe people were trying to harm him because .of some of the things I have done.. Though patient could not articulate what those were. He also said that he has been thinking maybe his son and daughter are not who he thinks they are and that maybe his was a plant meaning a set up by some conspiracy when they met. Patient open to reality testing but mostly thinks these things are true. Currently denies AH but says he was having AH days earlier; continues to worry that perhaps people want to harm him; denies any SI or HI. Discussed ECT as treatment and patient agrees, after going over risks/side effects. Also discussed medication and he agrees to continue with Ativan and amantadine (reviewed risks/side-effects) Impression: Patient with both catatonic symptoms and paranoid ideations; catatonia seems to be significantly helped with Ativan and Amantadine which hopefully bridge him until he can get ECT. Holding Zyprexa which he has been taking for years, to mitigate risks of catatonia. Will consider Clozaril 05/21 Patient remains paranoid that people on the unit think [he is] a risk.. For being unsafe... Patient says he is feeling very anxious and is not sure how this happened.. He remains amenable to getting ECT and continuing with both Ativan and amantadine. Electric Welder Helper discussed clozapine, risks/side effects and he agrees to start -patient took shower today and attended a group 05/22 Patient says he is feeling more anxious and paranoid today which he thinks is partly due to the nightmares he had last night a people grabbing him. Patient lists his plans for the day which include showering, shaving and attending group. Patient wanted to review medications which was done and he continues to agree with plan including continued titration with clozapine. Talked about lithium which he had not been on before and seems to have been started at [facility] and patient agrees to hold this for now. -Discussed case with Dr. Rosado who agrees that patient's catatonia seems to be stabilized with medications for now but plan remains to proceed with ECT as patient is fragile and highly vulnerable to decompensation (patient has history of severe catatonia). -will continue to titrate clozapine as it can treat delusions, catatonia and act as a mood stabilizer -will hold lithium; only at 300 mg which is subtherapeutic dose can increase risk of side effects during ECT -will continue Lamictal 25 mg for now and assess whether not this is necessary 05/23 continue titrate clozapine; ECT planned for Monday -will titrate Clozapine by 25mg a day Plan: CV q15min Continue Amantadine 100mg bid (for catatonia) Continued 2mg qid (for catatonia) Increase clozapine 75 mg q.h.s.; will continue to titrate (for psychotic symptoms, catatonia and mood stability) hold zyprexa: Since risks catatonic symptoms Hold lithium: Subtherapeutic and can increase side effects during ECT ECT pending Type 2 diabetes Continue with metformin, Jardiance, and Glucotrol A1c 6.9 Hyperlipidemia Continue aspirin and Lipitor Lipid panel within normal limits ECT risk stratification Patient without previous problems with anesthesia, has previously undergone ECT RCRI 0 points, no further cardiac workup or treatment indicated at this time based on available information Patient denies any past problems with anesthesia. Outside EKG demonstrates normal sinus rhythm with a QTC of 390, no evidence of ischemic changes. New EKG ordered. Based on stated PMH, HPI, and physical exam, there are no There are no obvious contraindications to the planned procedure.
[2025-05-24 19:49] VITALS: BP 126/76; PULSE 119; TEMP 36.4; O2SAT 94
--- NOTE | 2025-05-25 05:48 | P.PNPSI_ITS ---
Subjective Subjective Date of Service: 05/25/25 Reason For Visit: Schizoaffective Disorder Subjective Notes: Conditional Voluntary Interim History: Team reports prn chlorpromazine was helpful as pt was reporting freedom from sx last evening. Today, pt is visable in milieu, continues with though blocking, some difficulty in communicating his thoughts. Team reports pt is scheduled for ECT on 05/26. Medication Compliance: Yes Side effects from medications: No Review of Systems Review of Systems no Mental Status Exam Mental Status Exam Patient Appearance: Fatigued Patient Orientation: Person, Place and Situation Level of Consciousness: Alert Patient Behavior: Guarded, Talkative, Suspicious and Distractible Mood Description: Constricted and Fearful Affect Description: Fearful and Flat Patient Cognition Impaired: No Ability to Follow Directions: Good Speech Pattern: Spontaneous Speech Memory Description: Remote Impaired Hallucinations: None (denies, however then reports a lot going on in his head, racing of thought) Delusions: Paranoid Ideation and Present Thought Process: Racing, Illogical, Distracted and Rumination Thought Content: positive for Racing, positive for Perseveration, positive for Thought Blocking, positive for Suicidal Ideation (denies) and positive for Homicidal Ideation (denies) Depressive Symptoms: Difficulty Concentrating Judgement: Poor Diagnostics Vital Signs (24Hr): Vital Signs - 24 hr 05/24/25 08:30 05/24/25 19:49 Temperature 97.8 F 97.6 F Pulse Rate 75 119 H Respiratory Rate 18 Blood Pressure 110/71 126/76 Pulse Oximetry 96 94 Oxygen Delivery Method Room Air Room Air BMI result Body Mass Index 27.5 Labs 05/20/25 07:44 Medications Medications Current Medications Acetaminophen (Acetaminophen 325 Mg Tablet) 650 mg PO Q6H PRN PRN Reason: Headache/Pain, Scale 1-10 Last Admin: 05/23/25 09:33 Dose: 650 mg Al Hydroxide/Mg Hydroxide (Magnesium Hydrox/Alum Hydrox 30 Ml Oral.Susp) 30 ml PO Q6H PRN PRN Reason: Heartburn/Nausea Amantadine HCl (Amantadine Hcl 100 Mg Capsule) 100 mg PO BID [facility] Last Admin: 05/24/25 20:20 Dose: 100 mg Ascorbic Acid (Ascorbic Acid 500 Mg Tablet) 1,000 mg PO DAILY [facility] Last Admin: 05/24/25 08:40 Dose: 1,000 mg Aspirin (Aspirin 81 Mg Tab.Chew) 81 mg PO DAILY [facility] Last Admin: 05/24/25 08:40 Dose: 81 mg Atorvastatin Calcium (Atorvastatin Calcium 20 Mg Tablet) 20 mg PO BEDTIME [facility] Last Admin: 05/24/25 20:20 Dose: 20 mg Chlorpromazine HCl (Chlorpromazine Hcl 25 Mg Tablet) 25 mg PO Q4H PRN PRN Reason: racing thoughts Last Admin: 05/24/25 14:38 Dose: 25 mg Clozapine (Clozapine 100 Mg Tablet) 100 mg PO BEDTIME [facility] Last Admin: 05/24/25 20:20 Dose: 100 mg Empagliflozin (Empagliflozin 25 Mg Tablet) 25 mg PO DAILY [facility] Last Admin: 05/24/25 08:40 Dose: 25 mg Glipizide (Glipizide Xl 10 Mg Tab.Er.24) 10 mg PO DAILY [facility] Last Admin: 05/24/25 08:40 Dose: 10 mg Hydroxyzine HCl (Hydroxyzine Hcl 25 Mg Tablet) 25 mg PO Q6H PRN PRN Reason: mild anxiety Last Admin: 05/24/25 13:47 Dose: 25 mg Lamotrigine (Lamotrigine 25 Mg Tablet) 50 mg PO BEDTIME [facility] Last Admin: 05/24/25 20:20 Dose: 50 mg Trezevant Carbonate (Trezevant Carbonate Er 300 Mg Tablet.Er) 300 mg PO BEDTIME [facility] On Hold: 05/22/25 11:04 Last Admin: 05/21/25 21:31 Dose: 300 mg Lorazepam (Lorazepam 1 Mg Tablet) 2 mg PO QID [facility] Last Admin: 05/24/25 20:20 Dose: 2 mg Magnesium Hydroxide (Milk Of Magnesia 30 Ml Oral.Susp) 30 ml PO DAILY PRN PRN Reason: Constipation Metformin HCl (Metformin Hcl 1,000 Mg Tablet) 1,000 mg PO BIDWM [facility] Last Admin: 05/24/25 17:09 Dose: 1,000 mg Multivitamins/Vitamin C (Multivitamin Tablet) 1 tab PO DAILY [facility] Last Admin: 05/24/25 08:41 Dose: 1 tab Nicotine (Nicotine 21 Mg Patch.Td24) 21 mg TRANSDERMA DAILY PRN PRN Reason: nicotine craving Nicotine Polacrilex (Nicotine Polacrilex 2 Mg Gum) 2 mg BUCCAL Q2H PRN PRN Reason: Nicotine Cravings Sertraline HCl (Sertraline Hcl 100 Mg Tablet) 100 mg PO DAILY [facility] Last Admin: 05/24/25 08:41 Dose: 100 mg Trazodone HCl (Trazodone Hcl 50 Mg Tablet) 50 mg PO BEDTIME MRX1 PRN PRN Reason: Insomnia Last Admin: 05/21/25 22:19 Dose: 50 mg Vitamin D (Cholecalciferol (Vitamin D3) 25 Mcg Tablet) 125 mcg PO MoFr@0900 [facility] Last Admin: 05/23/25 09:22 Dose: 125 mcg Allergies Allergies Allergy/AdvReac Type Severity Reaction Status Date / Time No Known Drug Allergies Allergy Unknown Verified 05/19/25 18:25 Assessment & Plan Assessment & Plan (1) MDD (major depressive disorder): Status: Acute Code(s): F32.9 - Major depressive disorder, single episode, unspecified Plan HPI: Patient is a 54-year-old male with history of bipolar disorder, catatonia who presents as a transfer from hospital on [facility] coming [place] [facility] [place] in the face of catatonia following a manic episode. Patient with significant catatonic features having a difficult time talking or moving until instructional writer started patient on Ativan and amantadine. Patient says that he ended up coming to the hospital because he had paranoid, racing thoughts that people Were out to get me. Patient says he had some issues with his finances, Internet addiction and that people on it took him for a lot of money. He said his family is upset and suggested he go to the hospital. Patient reports that for some amount of that time he was having what sounds like a manic episode, with increased libido, mind racing, blurting out his thoughts, and high energy. Patient said he is still feeling some paranoid thoughts, like when he drove here to the hospital from [facility], thinking people in the other cars with looking at him, maybe people were trying to harm him because .of some of the things I have done.. Though patient could not articulate what those were. He also said that he has been thinking maybe his son and daughter are not who he thinks they are and that maybe his was a plant meaning a set up by some conspiracy when they met. Patient open to reality testing but mostly thinks these things are true. Currently denies AH but says he was having AH days earlier; continues to worry that perhaps people want to harm him; denies any SI or HI. Discussed ECT as treatment and patient agrees, after going over risks/side effects. Also discussed medication and he agrees to continue with Ativan and amantadine (reviewed risks/side-effects) Impression: Patient with both catatonic symptoms and paranoid ideations; catatonia seems to be significantly helped with Ativan and Amantadine which hopefully bridge him until he can get ECT. Holding Zyprexa which he has been taking for years, to mitigate risks of catatonia. Will consider Clozaril 05/21 Patient remains paranoid that people on the unit think [he is] a risk.. For being unsafe... Patient says he is feeling very anxious and is not sure how this happened.. He remains amenable to getting ECT and continuing with both Ativan and amantadine. Pest Controller discussed clozapine, risks/side effects and he agrees to start -patient took shower today and attended a group 05/22 Patient says he is feeling more anxious and paranoid today which he thinks is partly due to the nightmares he had last night a people grabbing him. Patient lists his plans for the day which include showering, shaving and attending group. Patient wanted to review medications which was done and he continues to agree with plan including continued titration with clozapine. Talked about lithium which he had not been on before and seems to have been started at [facility] and patient agrees to hold this for now. -Discussed case with Dr. Rosado who agrees that patient's catatonia seems to be stabilized with medications for now but plan remains to proceed with ECT as patient is fragile and highly vulnerable to decompensation (patient has history of severe catatonia). -will continue to titrate clozapine as it can treat delusions, catatonia and act as a mood stabilizer -will hold lithium; only at 300 mg which is subtherapeutic dose can increase risk of side effects during ECT -will continue Lamictal 25 mg for now and assess whether not this is necessary 05/23 continue titrate clozapine; ECT planned for Monday -will titrate Clozapine by 25mg a day 05/24/25 Review with team, review of plan of care, met with pt x 2. Reports difficult sx, racing of thought- chlorpromazine prn ordered temporarily to help with sx mgt. Pt asked to meet later in the day with significant paranoia, I worked with you in [facility], why are you here? Explained and encouraged pt to utilize team and regime to help manage sx. Pt reports I will not hurt myself or anyone else, will anyone hurt me here? Assured pt he was safe on the unit. Thought blocking noted. Plan: Chlorpromazine prn 05/25/25: Team reports prn chlorpromazine was helpful as pt was reporting freedom from sx last evening. Today, pt is visable in milieu, continues with though blocking, some difficulty in communicating his thoughts. Team reports pt is scheduled for ECT on 05/26. Plan: CV q15min Continue Amantadine 100mg bid (for catatonia) Continued 2mg qid (for catatonia) Increase clozapine 75 mg q.h.s.; will continue to titrate (for psychotic symptoms, catatonia and mood stability) hold zyprexa: Since risks catatonic symptoms Hold lithium: Subtherapeutic and can increase side effects during ECT ECT pending Type 2 diabetes Continue with metformin, Jardiance, and Glucotrol A1c 6.9 Hyperlipidemia Continue aspirin and Lipitor Lipid panel within normal limits ECT risk stratification Patient without previous problems with anesthesia, has previously undergone ECT RCRI 0 points, no further cardiac workup or treatment indicated at this time based on available information Patient denies any past problems with anesthesia. Outside EKG demonstrates normal sinus rhythm with a QTC of 390, no evidence of ischemic changes. New EKG ordered. Based on stated PMH, HPI, and physical exam, there are no There are no obvious contraindications to the planned procedure. Reason for continued inpatient stay Substantial Risk for: rapid decompensation Time Spent With Patient Time: Total time managing care of this patient today ____ minutes.
[2025-05-25 08:00] VITALS: BP 133/86; PULSE 99; RESP 18; TEMP 36.5; O2SAT 95
[2025-05-25] MEDS: glipiZIDE XL 10 MG TAB.ER.24 PO (08:35)
[2025-05-25 20:00] VITALS: BP 142/88; PULSE 101; RESP 18; TEMP 36.3; O2SAT 94
[2025-05-26] VITALS (9 sets, daily range): BP systolic 131–158; BP diastolic 87–98; PULSE 72–106; RESP 12–18; TEMP 36.2–36.9; O2SAT 91–99
--- NOTE | 2025-05-26 09:53 | HO.PSYCHPN ---
Subjective Subjective Date of Service: 05/26/25 Reason For Visit: Schizoaffective Disorder Interim History: Met with patient; discussed with team Patient continues to report, anxious thoughts saying that my paranoia is kicking in... And patient remains worried that peers on the unit may have bad intentions towards him; patient seems to benefit from reality testing. Discussed ECT and initially patient said he was hesitant and wanted to cancel it because he is afraid something might happen during the procedure however after talking it through patient agreed to continue plan. Mental Status Exam Mental Status Exam Narrative: Pt is alert and oriented; behavior is anxious but overall calm and cooperative and friendly on approach; patient is not in distress; dressed in hospital attire with unkempt hair, scruffy facial hair but adequate hygiene; mood is described as anxious and affect congruent; eye contact appropriate; Speech is a little measured; normal volume, not pressured; some psychomotor retardation present; thought process is goal directed but gets distracted and goes off topic; Thought content is paranoid ideations; treatment; concerns that people may try to harm him; denies any SI/HI. Denies AVH though patient is internally preoccupied Patients insight and judgment impaired Diagnostics Vital Signs (24Hr): Vital Signs - 24 hr 05/25/25 20:00 05/26/25 08:00 Temperature 97.4 F 97.5 F Pulse Rate 101 H 102 H Respiratory Rate 18 16 Blood Pressure 142/88 H 144/87 H Pulse Oximetry 94 94 Oxygen Delivery Method Room Air Room Air BMI result Body Mass Index 27.5 Labs 05/20/25 07:44 Medications Medications Current Medications Acetaminophen (Acetaminophen 325 Mg Tablet) 650 mg PO Q6H PRN PRN Reason: Headache/Pain, Scale 1-10 Last Admin: 05/25/25 16:51 Dose: 650 mg Al Hydroxide/Mg Hydroxide (Magnesium Hydrox/Alum Hydrox 30 Ml Oral.Susp) 30 ml PO Q6H PRN PRN Reason: Heartburn/Nausea Amantadine HCl (Amantadine Hcl 100 Mg Capsule) 100 mg PO BID [facility] Last Admin: 05/25/25 20:47 Dose: 100 mg Ascorbic Acid (Ascorbic Acid 500 Mg Tablet) 1,000 mg PO DAILY [facility] Last Admin: 05/25/25 08:44 Dose: 500 mg Aspirin (Aspirin 81 Mg Tab.Chew) 81 mg PO DAILY [facility] Last Admin: 05/25/25 08:35 Dose: 81 mg Atorvastatin Calcium (Atorvastatin Calcium 20 Mg Tablet) 20 mg PO BEDTIME [facility] Last Admin: 05/25/25 20:47 Dose: 20 mg Chlorpromazine HCl (Chlorpromazine Hcl 25 Mg Tablet) 25 mg PO Q4H PRN PRN Reason: racing thoughts Last Admin: 05/25/25 21:32 Dose: 25 mg Clozapine (Clozapine 100 Mg Tablet) 100 mg PO BEDTIME [facility] Last Admin: 05/25/25 20:47 Dose: 100 mg Empagliflozin (Empagliflozin 25 Mg Tablet) 25 mg PO DAILY [facility] Last Admin: 05/25/25 08:35 Dose: 25 mg Glipizide (Glipizide Xl 10 Mg Tab.Er.24) 10 mg PO DAILY [facility] Last Admin: 05/25/25 08:35 Dose: 10 mg Hydroxyzine HCl (Hydroxyzine Hcl 25 Mg Tablet) 25 mg PO Q6H PRN PRN Reason: mild anxiety Last Admin: 05/25/25 21:32 Dose: 25 mg Lamotrigine (Lamotrigine 25 Mg Tablet) 50 mg PO BEDTIME [facility] Last Admin: 05/25/25 20:47 Dose: 50 mg [place] Carbonate ([place] Carbonate Er 300 Mg Tablet.Er) 300 mg PO BEDTIME [facility] On Hold: 05/22/25 11:04 Last Admin: 05/21/25 21:31 Dose: 300 mg Lorazepam (Lorazepam 1 Mg Tablet) 2 mg PO QID [facility] Last Admin: 05/25/25 21:38 Dose: Not Given Magnesium Hydroxide (Milk Of Magnesia 30 Ml Oral.Susp) 30 ml PO DAILY PRN PRN Reason: Constipation Metformin HCl (Metformin Hcl 1,000 Mg Tablet) 1,000 mg PO BIDWM [facility] Last Admin: 05/25/25 16:50 Dose: 1,000 mg Multivitamins/Vitamin C (Multivitamin Tablet) 1 tab PO DAILY [facility] Last Admin: 05/25/25 08:35 Dose: 1 tab Nicotine (Nicotine 21 Mg Patch.Td24) 21 mg TRANSDERMA DAILY PRN PRN Reason: nicotine craving Nicotine Polacrilex (Nicotine Polacrilex 2 Mg Gum) 2 mg BUCCAL Q2H PRN PRN Reason: Nicotine Cravings Sertraline HCl (Sertraline Hcl 100 Mg Tablet) 100 mg PO DAILY [facility] Last Admin: 05/25/25 08:35 Dose: 100 mg Trazodone HCl (Trazodone Hcl 50 Mg Tablet) 50 mg PO BEDTIME MRX1 PRN PRN Reason: Insomnia Last Admin: 05/21/25 22:19 Dose: 50 mg Vitamin D (Cholecalciferol (Vitamin D3) 25 Mcg Tablet) 125 mcg PO MoFr@0900 [facility] Last Admin: 05/23/25 09:22 Dose: 125 mcg Allergies Allergies Allergy/AdvReac Type Severity Reaction Status Date / Time No Known Drug Allergies Allergy Unknown Verified 05/19/25 18:25 Assessment & Plan Assessment & Plan (1) MDD (major depressive disorder): Status: Acute Code(s): F32.9 - Major depressive disorder, single episode, unspecified Plan HPI: Patient is a 54-year-old male with history of bipolar disorder, catatonia who presents as a transfer from hospital on [facility] [place] [facility] [place] the face of catatonia following a manic episode. Patient with significant catatonic features having a difficult time talking or moving until procedure writer started patient on Ativan and amantadine. Patient says that he ended up coming to the hospital because he had paranoid, racing thoughts that people Were out to get me. Patient says he had some issues with his finances, Internet addiction and that people on it took him for a lot of money. He said his family is upset and suggested he go to the hospital. Patient reports that for some amount of that time he was having what sounds like a manic episode, with increased libido, mind racing, blurting out his thoughts, and high energy. Patient said he is still feeling some paranoid thoughts, like when he drove here to the hospital from [facility], thinking people in the other cars with looking at him, maybe people were trying to harm him because .of some of the things I have done.. Though patient could not articulate what those were. He also said that he has been thinking maybe his son and daughter are not who he thinks they are and that maybe his was a plant meaning a set up by some conspiracy when they met. Patient open to reality testing but mostly thinks these things are true. Currently denies AH but says he was having AH days earlier; continues to worry that perhaps people want to harm him; denies any SI or HI. Discussed ECT as treatment and patient agrees, after going over risks/side effects. Also discussed medication and he agrees to continue with Ativan and amantadine (reviewed risks/side-effects) Impression: Patient with both catatonic symptoms and paranoid ideations; catatonia seems to be significantly helped with Ativan and Amantadine which hopefully bridge him until he can get ECT. Holding Zyprexa which he has been taking for years, to mitigate risks of catatonia. Will consider Clozaril 05/21 Patient remains paranoid that people on the unit think [he is] a risk.. For being unsafe... Patient says he is feeling very anxious and is not sure how this happened.. He remains amenable to getting ECT and continuing with both Ativan and amantadine. Property Assessment Monitor discussed clozapine, risks/side effects and he agrees to start -patient took shower today and attended a group 05/22 Patient says he is feeling more anxious and paranoid today which he thinks is partly due to the nightmares he had last night a people grabbing him. Patient lists his plans for the day which include showering, shaving and attending group. Patient wanted to review medications which was done and he continues to agree with plan including continued titration with clozapine. Talked about lithium which he had not been on before and seems to have been started at [facility] and patient agrees to hold this for now. -Discussed case with Dr. Rosado who agrees that patient's catatonia seems to be stabilized with medications for now but plan remains to proceed with ECT as patient is fragile and highly vulnerable to decompensation (patient has history of severe catatonia). -will continue to titrate clozapine as it can treat delusions, catatonia and act as a mood stabilizer -will hold lithium; only at 300 mg which is subtherapeutic dose can increase risk of side effects during ECT -will continue Lamictal 25 mg for now and assess whether not this is necessary 05/23 continue titrate clozapine; ECT planned for Monday -will titrate Clozapine by 25mg a day 05/24/25 Review with team, review of plan of care, met with pt x 2. Reports difficult sx, racing of thought- chlorpromazine prn ordered temporarily to help with sx mgt. Pt asked to meet later in the day with significant paranoia, I worked with you in [facility], why are you here? Explained and encouraged pt to utilize team and regime to help manage sx. Pt reports I will not hurt myself or anyone else, will anyone hurt me here? Assured pt he was safe on the unit. Thought blocking noted. Plan: Chlorpromazine prn 05/26 Patient continues to report, anxious thoughts saying that my paranoia is kicking in... And patient remains worried that peers on the unit may have bad intentions towards him; patient seems to benefit from reality testing. Discussed ECT and initially patient said he was hesitant and wanted to cancel it because he is afraid something might happen during the procedure however after talking it through patient agreed to continue plan. Will increase Clozaril to 125 mg q.h.s. and likely continue titrating -will discontinue Lamictal as it is an antiepileptic and was just recently started [facility]; lithium remains discontinued was also started there -other patients getting ECT will lower Ativan to 1.5 mg q.i.d. Plan: CV q15min Continue Amantadine 100mg bid (for catatonia) Lower Ativan to 1.5 mg qid (for catatonia) Increase clozapine 125 mg q.h.s.; will continue to titrate (for psychotic symptoms, catatonia and mood stability) hold zyprexa: Since risks catatonic symptoms Hold lithium: Subtherapeutic and can increase side effects during ECT ECT pending Type 2 diabetes Continue with metformin, Jardiance, and Glucotrol A1c 6.9 Hyperlipidemia Continue aspirin and Lipitor Lipid panel within normal limits ECT risk stratification Patient without previous problems with anesthesia, has previously undergone ECT RCRI 0 points, no further cardiac workup or treatment indicated at this time based on available information Patient denies any past problems with anesthesia. Outside EKG demonstrates normal sinus rhythm with a QTC of 390, no evidence of ischemic changes. New EKG ordered. Based on stated PMH, HPI, and physical exam, there are no There are no obvious contraindications to the planned procedure. Patient educated on: diagnosis, medication risk/benefits, ECT and therapeutic strategies Informed Consent: understands, does not understand and further education needed Reason for continued inpatient stay Substantial Risk for: inability to function Time Spent With Patient Time: Total time managing care of this patient today ____ minutes.
--- NOTE | 2025-05-26 13:46 | HO.ANESPROP2 ---
Documented by User: Fatmata Mercado NP 05/26/25 10:50 HPI - Anesthesia Eval Consult details Narrative: 54 yr old male for ECT Follows with renal for CKD Type 2 DM *on Jardiance for cardio-renal protection Anesthesia Pre-Procedure Meds Is the patient on any of the following meds?: SGLT2 Inhib PMFSH Active Problems Active Problems: All Active Problems (Updated 05/20/25 @ 15:44 by Sahra Leo DNP) MDD (major depressive disorder) (Acute) CKD (chronic kidney disease) (Acute) Non-insulin dependent type 2 diabetes mellitus (Acute) Major depressive disorder, recurrent, in full remission with mood-congruent psychotic features (Acute) Generalized anxiety disorder (Acute) Major depressive disorder, recurrent episode, in partial remission with anxious distress (Acute) Bipolar affective, depress, sev w/ psych (Acute) Bipolar disorder (Acute) Type 2 diabetes mellitus (Chronic) Catatonic excitement (Acute) Bipolar I disorder with catatonia (Acute) Bipolar 2 disorder, major depressive episode (Acute) Social anxiety disorder (Acute) Bipolar 1 disorder, mixed, full remission (Acute) Past Medical History Medical History (Updated 05/20/25 @ 15:44 by Sahra Leo DNP) MDD (major depressive disorder) Non-insulin dependent type 2 diabetes mellitus Major depressive disorder, recurrent, in full remission with mood-congruent psychotic features Generalized anxiety disorder Inguinal hernia Sleep apnea Hyperlipemia Social anxiety disorder Bipolar 1 disorder Depression Diabetes Family History Family history of problems with anesthesia: No Surgical History Surgical History H/O hernia repair History of Problems with Anesthesia: No Social History Social History Household Members: Children Housing: House Do you presently have visiting nurse or other home services: No Patient Tobacco Use Status: Never used Tobacco Currently Displaying Signs/Symptoms of Drug Intoxication Withdrawal: No Have you been hit, kicked, punched, or otherwise hurt by someone within the past year? If so, by whom?: No Do you feel safe in your current relationship?: No Current Relationship Is there a partner from a previous relationship who is making you feel unsafe now?: No Are you made to feel afraid or neglected: No Advance Directives: No Advance Directives Information Provided: Yes Do you have thoughts of harming others: None Do you have a plan to hurt others: No Plan Recently lost weight without trying: No Nutrition Risks: No Nutritional Risk Poor oral hygiene: No service: No Sexual orientation: Straight/Heterosexual Meds Allergies Allergy/AdvReac Type Severity Reaction Status Date / Time No Known Drug Allergies Allergy Unknown Verified 05/19/25 18:25 Active Medications: Current Medications Acetaminophen (Acetaminophen 325 Mg Tablet) 650 mg PO Q6H PRN PRN Reason: Headache/Pain, Scale 1-10 Last Admin: 05/25/25 16:51 Dose: 650 mg Al Hydroxide/Mg Hydroxide (Magnesium Hydrox/Alum Hydrox 30 Ml Oral.Susp) 30 ml PO Q6H PRN PRN Reason: Heartburn/Nausea Amantadine HCl (Amantadine Hcl 100 Mg Capsule) 100 mg PO BID ON LICENSE OF [facility] Last Admin: 05/25/25 20:47 Dose: 100 mg Ascorbic Acid (Ascorbic Acid 500 Mg Tablet) 1,000 mg PO DAILY ON LICENSE OF [facility] Last Admin: 05/25/25 08:44 Dose: 500 mg Aspirin (Aspirin 81 Mg Tab.Chew) 81 mg PO DAILY ON LICENSE OF [facility] Last Admin: 05/25/25 08:35 Dose: 81 mg Atorvastatin Calcium (Atorvastatin Calcium 20 Mg Tablet) 20 mg PO BEDTIME ON LICENSE OF [facility] Last Admin: 05/25/25 20:47 Dose: 20 mg Chlorpromazine HCl (Chlorpromazine Hcl 25 Mg Tablet) 25 mg PO Q4H PRN PRN Reason: racing thoughts Last Admin: 05/25/25 21:32 Dose: 25 mg Clozapine (Clozapine 100 Mg Tablet) 100 mg PO BEDTIME ON LICENSE OF [facility] Last Admin: 05/25/25 20:47 Dose: 100 mg Empagliflozin (Empagliflozin 25 Mg Tablet) 25 mg PO DAILY ON LICENSE OF [facility] Last Admin: 05/25/25 08:35 Dose: 25 mg Glipizide (Glipizide Xl 10 Mg Tab.Er.24) 10 mg PO DAILY ON LICENSE OF [facility] Last Admin: 05/25/25 08:35 Dose: 10 mg Hydroxyzine HCl (Hydroxyzine Hcl 25 Mg Tablet) 25 mg PO Q6H PRN PRN Reason: mild anxiety Last Admin: 05/26/25 10:42 Dose: 25 mg Lamotrigine (Lamotrigine 25 Mg Tablet) 50 mg PO BEDTIME [facility] Last Admin: 05/25/25 20:47 Dose: 50 mg [place] Carbonate ([place] Carbonate Er 300 Mg Tablet.Er) 300 mg PO BEDTIME ON LICENSE OF [facility] On Hold: 05/22/25 11:04 Last Admin: 05/21/25 21:31 Dose: 300 mg Lorazepam (Lorazepam 1 Mg Tablet) 2 mg PO QID ON LICENSE OF [facility] Last Admin: 05/25/25 21:38 Dose: Not Given Magnesium Hydroxide (Milk Of Magnesia 30 Ml Oral.Susp) 30 ml PO DAILY PRN PRN Reason: Constipation Metformin HCl (Metformin Hcl 1,000 Mg Tablet) 1,000 mg PO BIDWM ON LICENSE OF [facility] Last Admin: 05/25/25 16:50 Dose: 1,000 mg Multivitamins/Vitamin C (Multivitamin Tablet) 1 tab PO DAILY ON LICENSE OF [facility] Last Admin: 05/25/25 08:35 Dose: 1 tab Nicotine (Nicotine 21 Mg Patch.Td24) 21 mg TRANSDERMA DAILY PRN PRN Reason: nicotine craving Nicotine Polacrilex (Nicotine Polacrilex 2 Mg Gum) 2 mg BUCCAL Q2H PRN PRN Reason: Nicotine Cravings Sertraline HCl (Sertraline Hcl 100 Mg Tablet) 100 mg PO DAILY ON LICENSE OF [facility] Last Admin: 05/25/25 08:35 Dose: 100 mg Trazodone HCl (Trazodone Hcl 50 Mg Tablet) 50 mg PO BEDTIME MRX1 PRN PRN Reason: Insomnia Last Admin: 05/21/25 22:19 Dose: 50 mg Vitamin D (Cholecalciferol (Vitamin D3) 25 Mcg Tablet) 125 mcg PO MoFr@0900 ON LICENSE OF [facility] Last Admin: 05/23/25 09:22 Dose: 125 mcg Home Medications ?Medication ?Instructions ?Recorded ?Confirmed ?Last Taken ?Type multivitamin 1 tab PO DAILY 03/01/21 05/19/25 02/28/21 History empagliflozin 25 mg tablet 25 mg PO DAILY 04/29/24 05/19/25 Unknown History (Jardiance) [place] 3 Fish Oil 1,000 mg PO DAILY 05/19/25 05/19/25 Unknown History ascorbic acid (vitamin C) 1,000 mg 1,000 mg PO DAILY 05/19/25 05/19/25 Unknown History tablet (Vitamin C) aspirin 81 mg tablet 81 mg PO DAILY 05/19/25 05/19/25 Unknown History cholecalciferol (vitamin D3) 125 5,000 unit PO MOFR 05/19/25 05/21/25 Unknown History mcg (5,000 unit) tablet lamotrigine 50 mg PO BEDTIME 05/19/25 05/19/25 Unknown History lithium carbonate 300 mg 300 mg PO BEDTIME 05/19/25 05/19/25 Unknown History tablet,extended release (Lithobid) lorazepam 1 mg tablet 1 mg PO Q6H PRN Anxiety 05/19/25 05/19/25 Unknown History Exam Height,Weight and Vital Signs: Height 6 ft 1 in Weight 94.6 kg Last Vital Signs Temp 97.5 F 05/26/25 08:00 Pulse 102 H 05/26/25 08:00 Resp 16 05/26/25 08:00 BP 144/87 H 05/26/25 08:00 Pulse Ox 94 05/26/25 08:00 O2 Del Method Room Air 05/26/25 08:00 Pertinent Lab Results Pertinent Lab Results: Laboratory Tests 05/20/25 05/21/25 07:44 14:07 Absolute Neuts (auto) 7.3 Sodium 140 Potassium 3.9 Chloride 106 Carbon Dioxide 19 L Anion Gap 19 BUN 19 H Creatinine 1.00 Estim Creat Clear Calc 96.5 Estimated GFR > 60 Random Glucose 120 H Estimat Average Glucose 151 Hemoglobin A1c % 6.9 H Calcium 9.9 Magnesium 2.0 Total Bilirubin 0.7 AST 48 H ALT 80 H Alkaline Phosphatase 91 Total Protein 7.6 Albumin 5.3 H Triglycerides 78 Cholesterol 128 LDL Cholesterol, Calc 58 HDL Cholesterol 55 Vitamin B12 1176 H Folate 16.9 TSH 2.02 Free T4 1.23 Narrative Narrative: EKG 05/20/25 Vent. Rate : 104 BPM Atrial Rate : 104 BPM P-R Int : 170 ms QRS Dur : 86 ms QT Int : 338 ms P-R-T Axes : 51 55 63 degrees QTcB Int : 444 ms Sinus tachycardia Nonspecific T wave abnormality Abnormal ECG When compared with ECG of 19-Jul-2022 13:12, No significant change was found Assessment and Plan Final Anesthetic Review Family History of Problems with Anesthesia: No History of Problems with Anesthesia: No Documented by User: Selina Dominguez, DO 05/26/25 13:47 HPI - Anesthesia Eval Anesthesia Pre-Procedure Meds Is the patient on any of the following meds?: SGLT2 Inhib PMFSH Past Medical History Medical History (Updated 05/20/25 @ 15:44 by Sahra Leo DNP) MDD (major depressive disorder) Non-insulin dependent type 2 diabetes mellitus Major depressive disorder, recurrent, in full remission with mood-congruent psychotic features Generalized anxiety disorder Inguinal hernia Sleep apnea Hyperlipemia Social anxiety disorder Bipolar 1 disorder Depression Diabetes Family History Family history of problems with anesthesia: No Surgical History Surgical History H/O hernia repair History of Problems with Anesthesia: No Social History Social History Household Members: Children Housing: House Do you presently have visiting nurse or other home services: No Patient Tobacco Use Status: Never used Tobacco Currently Displaying Signs/Symptoms of Drug Intoxication Withdrawal: No Have you been hit, kicked, punched, or otherwise hurt by someone within the past year? If so, by whom?: No Do you feel safe in your current relationship?: No Current Relationship Is there a partner from a previous relationship who is making you feel unsafe now?: No Are you made to feel afraid or neglected: No Advance Directives: No Advance Directives Information Provided: Yes Do you have thoughts of harming others: None Do you have a plan to hurt others: No Plan Recently lost weight without trying: No Nutrition Risks: No Nutritional Risk Poor oral hygiene: No service: No Sexual orientation: Straight/Heterosexual Meds Allergies Allergy/AdvReac Type Severity Reaction Status Date / Time No Known Drug Allergies Allergy Unknown Verified 05/19/25 18:25 Home Medications ?Medication ?Instructions ?Recorded ?Confirmed ?Last Taken ?Type multivitamin 1 tab PO DAILY 03/01/21 05/19/25 02/28/21 History empagliflozin 25 mg tablet 25 mg PO DAILY 04/29/24 05/19/25 Unknown History (Jardiance) [place] 3 Fish Oil 1,000 mg PO DAILY 05/19/25 05/19/25 Unknown History ascorbic acid (vitamin C) 1,000 mg 1,000 mg PO DAILY 05/19/25 05/19/25 Unknown History tablet (Vitamin C) aspirin 81 mg tablet 81 mg PO DAILY 05/19/25 05/19/25 Unknown History cholecalciferol (vitamin D3) 125 5,000 unit PO MOFR 05/19/25 05/21/25 Unknown History mcg (5,000 unit) tablet lamotrigine 50 mg PO BEDTIME 05/19/25 05/19/25 Unknown History lithium carbonate 300 mg 300 mg PO BEDTIME 05/19/25 05/19/25 Unknown History tablet,extended release (Lithobid) lorazepam 1 mg tablet 1 mg PO Q6H PRN Anxiety 05/19/25 05/19/25 Unknown History Exam Exam Date and Time: 05/26/25 1345 Airway Mallampati Class: II TM Dist: >3cm Neck ROM: Full Heart: S1S2 Lungs: CTAB Assessment and Plan Assessment Anesthesia Assessment: Anesthesia Plan Discussed and Chart Reviewed Final Anesthetic Review Family History of Problems with Anesthesia: No History of Problems with Anesthesia: No NPO: Yes ASA Class: III Final Preanesthetic Review: No Changes in Pt Med Stat, Meds/Allgs Chart Reviewed, Consent Obtained/Reviewed and Anes Risks/Benef Reviewed Patient Risk: Low Procedure Risk: Intermediate Anesthetic Plan Anesthetic Plan: GA and Agree w/ Assess. and Plan Disposition: Standard PACU
[2025-05-26] MEDS: Lactated Ringers 1,000 ML 100 ML IVCONT (13:52)
--- NOTE | 2025-05-26 14:53 | MHC.SHP ---
Pre-Procedural Eval Section A - 24 Hr Update-Section A only Date of Service: 05/26/25 Changes since office visit: No Cold of Flu in the past 2 weeks, No New Medical Problems, No Changes in Medication and No Patient answered all questions The patient has been examined within 24 hours of the surgical procedure. The History & Physical has been completed within 30 days and I have reviewed it.: Yes Section B - Complete if H&P > 30 days Chief Complaint: Schizoaffective Disorder Details of Present Illness: continued psychotic depression Allergies: Allergies Allergy/AdvReac Type Severity Reaction Status Date / Time No Known Drug Allergies Allergy Unknown Verified 05/19/25 18:25 Review of Systems Sugical H&P ROS: Negative: Constitution, Cardiovascular, Respiratory and Gastrointestinal and Yes, Specify: Psychiatric (psychotic depressive symptoms) and Genitourinary (some trouble urinating) Plan Diagnosis/Plan: Unchanged I have reviewed the history and physical and performed a pertinent physical examination on my patient. No changes have occurred unless specified. Time Spent With Patient Time: Total time managing care of this patient today ____ minutes.
[2025-05-26] MEDS: glipiZIDE XL 10 MG TAB.ER.24 PO (16:47)
--- NOTE | 2025-05-26 21:39 | HO.ECTPROC ---
ECT Procedure Note Diagnosis/Treatment Date of Service: 05/26/25 Diagnosis: Catatonia Current Treatment Number: 1 Treatment: Series Interval Clinical Notes: pt severely depressed and withdrawn ect completed Time: Total time managing care of this patient today ____ minutes. ECT Settings Device: THYMATRON DGx Electrode Placement: Bitemporal Program/Pulse Width: 0.50 Energy Percent: 100 Seizure Duration By EEG (in seconds): 71 Medications Administration General Anesthetic: Etomidate (16) Muscle Relaxant: Succinylcholine (100) Ancillary Medications Analgesics: Torodol - Pre ECT (30) Cardiovascular Medications: Glycopyrrolate (0.2) Miscillaneous Medications: Flumazenil (250 mcg) Airway Management Airway Management: Bag Mask Ventilation Treatment Recommendations Energy Percent: 70 Pt Tolerated Procedure w/o Issue: Yes
[2025-05-27 08:00] VITALS: BP 130/84; PULSE 96; TEMP 36.4; O2SAT 96
[2025-05-27 08:32] LABS: Neut%MD 68.2 %; WBCANC 9.3 X10*3/uL
[2025-05-27 08:48] LABS: Creatinine Clr Calc Pharmacy 100.5; Estimated Glomerular Filt Rate > 60
[2025-05-27] MEDS: glipiZIDE XL 10 MG TAB.ER.24 PO (09:38)
--- NOTE | 2025-05-27 16:14 | HO.PSYCHPN ---
Subjective Subjective Date of Service: 05/27/25 Reason For Visit: Schizoaffective Disorder Subjective Notes: Conditional Voluntary Healthcare Proxy: Yes Interim History: pt seems less restricted more verbal taylor affect able to discuss evolution of events periods of PI Medication Compliance: Yes Mental Status Exam Mental Status Exam Narrative: Patient Appearance: Fatigued Patient Orientation: Person, Place and Situation Level of Consciousness: Alert Patient Behavior: Guarded, Talkative, Suspicious and Distractible Mood Description: Constricted and Fearful Affect Description: Blunted, Flat and Apprehensive Patient Cognition Impaired: No Ability to Follow Directions: Good Speech Pattern: Spontaneous Speech and Soft-Spoken Hallucinations: None (denies, however then reports a lot going on in his head, racing of thought) Delusions: Paranoid Ideation Thought Process: Racing, Illogical, Distracted and Rumination Thought Content: positive for Racing, positive for Perseveration, positive for Thought Blocking, positive for Suicidal Ideation (denies) and positive for Homicidal Ideation (denies) Depressive Symptoms: Difficulty Concentrating Judgement: Poor Diagnostics Vital Signs (24Hr): Vital Signs - 24 hr 05/26/25 16:31 05/26/25 20:00 05/27/25 08:00 Temperature 98.2 F 98.2 F 97.5 F Pulse Rate 97 99 96 Respiratory Rate 16 16 Blood Pressure 158/90 H 140/87 H 130/84 Pulse Oximetry 96 96 96 Oxygen Delivery Method Room Air Room Air Room Air BMI result Body Mass Index 27.5 Labs 05/27/25 07:59 Labs: Laboratory Results - last 48 hr 05/27/25 07:59 Absolute Neuts (auto) 6.3 Creatinine 0.96 Estim Creat Clear Calc 100.5 Estimated GFR > 60 Medications Medications Current Medications Acetaminophen (Acetaminophen 325 Mg Tablet) 650 mg PO Q6H PRN PRN Reason: Headache/Pain, Scale 1-10 Last Admin: 05/26/25 16:13 Dose: 650 mg Al Hydroxide/Mg Hydroxide (Magnesium Hydrox/Alum Hydrox 30 Ml Oral.Susp) 30 ml PO Q6H PRN PRN Reason: Heartburn/Nausea Amantadine HCl (Amantadine Hcl 100 Mg Capsule) 100 mg PO BID [facility] Last Admin: 05/27/25 09:40 Dose: 100 mg Ascorbic Acid (Ascorbic Acid 500 Mg Tablet) 1,000 mg PO DAILY [facility] Last Admin: 12/09/25 09:38 Dose: 1,000 mg Aspirin (Aspirin 81 Mg Tab.Chew) 81 mg PO DAILY [facility] Last Admin: 05/27/25 09:39 Dose: 81 mg Atorvastatin Calcium (Atorvastatin Calcium 20 Mg Tablet) 20 mg PO BEDTIME [facility] Last Admin: 05/26/25 20:07 Dose: 20 mg Chlorpromazine HCl (Chlorpromazine Hcl 25 Mg Tablet) 25 mg PO Q4H PRN PRN Reason: racing thoughts Last Admin: 05/25/25 21:32 Dose: 25 mg Clozapine (Clozapine 25 Mg Tablet) 125 mg PO BEDTIME [facility] Last Admin: 05/26/25 20:06 Dose: 125 mg Empagliflozin (Empagliflozin 25 Mg Tablet) 25 mg PO DAILY [facility] Last Admin: 05/27/25 09:39 Dose: 25 mg Glipizide (Glipizide Xl 10 Mg Tab.Er.24) 10 mg PO DAILY [facility] Last Admin: 05/27/25 09:38 Dose: 10 mg Hydroxyzine HCl (Hydroxyzine Hcl 25 Mg Tablet) 25 mg PO Q6H PRN PRN Reason: mild anxiety Last Admin: 05/27/25 15:54 Dose: 25 mg Lorazepam (Lorazepam 0.5 Mg Tablet) 1.5 mg PO QID [facility] Last Admin: 05/27/25 16:04 Dose: 1.5 mg Magnesium Hydroxide (Milk Of Magnesia 30 Ml Oral.Susp) 30 ml PO DAILY PRN PRN Reason: Constipation Metformin HCl (Metformin Hcl 1,000 Mg Tablet) 1,000 mg PO BIDWM [facility] Last Admin: 05/27/25 09:40 Dose: 1,000 mg Multivitamins/Vitamin C (Multivitamin Tablet) 1 tab PO DAILY [facility] Last Admin: 05/27/25 09:39 Dose: 1 tab Nicotine (Nicotine 21 Mg Patch.Td24) 21 mg TRANSDERMA DAILY PRN PRN Reason: nicotine craving Nicotine Polacrilex (Nicotine Polacrilex 2 Mg Gum) 2 mg BUCCAL Q2H PRN PRN Reason: Nicotine Cravings Sertraline HCl (Sertraline Hcl 100 Mg Tablet) 100 mg PO DAILY [facility] Last Admin: 05/27/25 09:40 Dose: 100 mg Trazodone HCl (Trazodone Hcl 50 Mg Tablet) 50 mg PO BEDTIME MRX1 PRN PRN Reason: Insomnia Last Admin: 05/21/25 22:19 Dose: 50 mg Vitamin D (Cholecalciferol (Vitamin D3) 25 Mcg Tablet) 125 mcg PO MoFr@0900 [facility] Last Admin: 05/26/25 16:47 Dose: 125 mcg Allergies Allergies Allergy/AdvReac Type Severity Reaction Status Date / Time No Known Drug Allergies Allergy Unknown Verified 05/19/25 18:25 Assessment & Plan Assessment & Plan (1) MDD (major depressive disorder): Status: Acute Code(s): F32.9 - Major depressive disorder, single episode, unspecified Plan HPI: Patient is a 54-year-old male with history of bipolar disorder, catatonia who presents as a transfer from hospital on [facility] coming to [facility] for ECT in the face of catatonia following a manic episode. 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 Patient says that he ended up coming to the hospital because he had paranoid, racing thoughts that people Were out to get me. Patient says he had some issues with his finances, Internet addiction and that people on it took him for a lot of money. He said his family is upset and suggested he go to the hospital. Patient reports that for some amount of that time he was having what sounds like a manic episode, with increased libido, mind racing, blurting out his thoughts, and high energy. Patient said he is still feeling some paranoid thoughts, like when he drove here to the hospital from [facility], thinking people in the other cars with looking at him, maybe people were trying to harm him because .of some of the things I have done.. Though patient could not articulate what those were. He also said that he has been thinking maybe his son and daughter are not who he thinks they are and that maybe his was a plant meaning a set up by some conspiracy when they met. Patient open to reality testing but mostly thinks these things are true. Currently denies AH but says he was having AH days earlier; continues to worry that perhaps people want to harm him; denies any SI or HI. Discussed ECT as treatment and patient agrees, after going over risks/side effects. Also discussed medication and he agrees to continue with Ativan and amantadine (reviewed risks/side-effects) Impression: Patient with both catatonic symptoms and paranoid ideations; catatonia seems to be significantly helped with Ativan and Amantadine which hopefully bridge him until he can get ECT. Holding Zyprexa which he has been taking for years, to mitigate risks of catatonia. Will consider Clozaril 05/21 Patient remains paranoid that people on the unit think [he is] a risk.. For being unsafe... Patient says he is feeling very anxious and is not sure how this happened.. He remains amenable to getting ECT and continuing with both Ativan and amantadine. Bonding Machine Tender discussed clozapine, risks/side effects and he agrees to start -patient took shower today and attended a group 05/22 Patient says he is feeling more anxious and paranoid today which he thinks is partly due to the nightmares he had last night a people grabbing him. Patient lists his plans for the day which include showering, shaving and attending group. Patient wanted to review medications which was done and he continues to agree with plan including continued titration with clozapine. Talked about lithium which he had not been on before and seems to have been started at [facility] and patient agrees to hold this for now. -Discussed case with Dr. Rosado who agrees that patient's catatonia seems to be stabilized with medications for now but plan remains to proceed with ECT as patient is fragile and highly vulnerable to decompensation (patient has history of severe catatonia). -will continue to titrate clozapine as it can treat delusions, catatonia and act as a mood stabilizer -will hold lithium; only at 300 mg which is subtherapeutic dose can increase risk of side effects during ECT -will continue Lamictal 25 mg for now and assess whether not this is necessary 05/23 continue titrate clozapine; ECT planned for Monday -will titrate Clozapine by 25mg a day 05/24/25 Review with team, review of plan of care, met with pt x 2. Reports difficult sx, racing of thought- chlorpromazine prn ordered temporarily to help with sx mgt. Pt asked to meet later in the day with significant paranoia, I worked with you in [facility], why are you here? Explained and encouraged pt to utilize team and regime to help manage sx. Pt reports I will not hurt myself or anyone else, will anyone hurt me here? Assured pt he was safe on the unit. Thought blocking noted. Plan: Chlorpromazine prn 05/26 Patient continues to report, anxious thoughts saying that my paranoia is kicking in... And patient remains worried that peers on the unit may have bad intentions towards him; patient seems to benefit from reality testing. Discussed ECT and initially patient said he was hesitant and wanted to cancel it because he is afraid something might happen during the procedure however after talking it through patient agreed to continue plan. Will increase Clozaril to 125 mg q.h.s. and likely continue titrating -will discontinue Lamictal as it is an antiepileptic and was just recently started [facility]; lithium remains discontinued was also started there -other patients getting ECT will lower Ativan to 1.5 mg q.i.d. 05/27/25 ect number 1 tolerated pt depressed blunted slowed ect in am cont clozapine Plan: CV q15min Continue Amantadine 100mg bid (for catatonia) Lower Ativan to 1.5 mg qid (for catatonia) Increase clozapine 125 mg q.h.s.; will continue to titrate (for psychotic symptoms, catatonia and mood stability) hold zyprexa: Since risks catatonic symptoms Hold lithium: Subtherapeutic and can increase side effects during ECT ECT pending Type 2 diabetes Continue with metformin, Jardiance, and Glucotrol A1c 6.9 Hyperlipidemia Continue aspirin and Lipitor Lipid panel within normal limits ECT risk stratification Patient without previous problems with anesthesia, has previously undergone ECT RCRI 0 points, no further cardiac workup or treatment indicated at this time based on available information Patient denies any past problems with anesthesia. Outside EKG demonstrates normal sinus rhythm with a QTC of 390, no evidence of ischemic changes. New EKG ordered. Based on stated PMH, HPI, and physical exam, there are no There are no obvious contraindications to the planned procedure. Reason for continued inpatient stay Substantial Risk for: harm to self, inability to function and rapid decompensation Time Spent With Patient Time: Total time managing care of this patient today ____ minutes.
[2025-05-27 20:00] VITALS: BP 122/81; PULSE 104; O2SAT 97
[2025-05-28] VITALS (8 sets, daily range): BP systolic 133–157; BP diastolic 81–99; PULSE 83–110; RESP 15–20; TEMP 36.3–36.9; O2SAT 92–97; BMI 27.5
[2025-05-28] MEDS: diazePAM 10 MG/2 ML CARTRIDGE 5 MG IM (10:32)
--- NOTE | 2025-05-28 13:52 | MHC.SHP ---
Pre-Procedural Eval Section A - 24 Hr Update-Section A only Date of Service: 05/28/25 Changes since office visit: No Cold of Flu in the past 2 weeks, No New Medical Problems, No Changes in Medication and No Patient answered all questions The patient has been examined within 24 hours of the surgical procedure. The History & Physical has been completed within 30 days and I have reviewed it.: Yes Section B - Complete if H&P > 30 days Chief Complaint: Schizoaffective Disorder Details of Present Illness: continued psychotic depression Allergies: Allergies Allergy/AdvReac Type Severity Reaction Status Date / Time No Known Drug Allergies Allergy Unknown Verified 05/19/25 18:25 Review of Systems Sugical H&P ROS: Negative: Constitution, Cardiovascular, Respiratory and Gastrointestinal and Yes, Specify: Psychiatric (psychotic depressive symptoms) and Genitourinary (some trouble urinating) Plan Diagnosis/Plan: Unchanged I have reviewed the history and physical and performed a pertinent physical examination on my patient. No changes have occurred unless specified. Time Spent With Patient Time: Total time managing care of this patient today ____ minutes.
--- NOTE | 2025-05-28 14:00 | HO.ANESPROP2 ---
[facility] Active Problems Active Problems: All Active Problems MDD (major depressive disorder) (Acute) CKD (chronic kidney disease) (Acute) Non-insulin dependent type 2 diabetes mellitus (Acute) Major depressive disorder, recurrent, in full remission with mood-congruent psychotic features (Acute) Generalized anxiety disorder (Acute) Major depressive disorder, recurrent episode, in partial remission with anxious distress (Acute) Bipolar affective, depress, sev w/ psych (Acute) Bipolar disorder (Acute) Type 2 diabetes mellitus (Chronic) Catatonic excitement (Acute) Bipolar I disorder with catatonia (Acute) Bipolar 2 disorder, major depressive episode (Acute) Social anxiety disorder (Acute) Bipolar 1 disorder, mixed, full remission (Acute) Past Medical History Medical History (Updated 05/20/25 @ 15:44 by Sahra Leo DNP) MDD (major depressive disorder) Non-insulin dependent type 2 diabetes mellitus Major depressive disorder, recurrent, in full remission with mood-congruent psychotic features Generalized anxiety disorder Inguinal hernia Sleep apnea Hyperlipemia Social anxiety disorder Bipolar 1 disorder Depression Diabetes Family History Family history of problems with anesthesia: No Surgical History Surgical History H/O hernia repair History of Problems with Anesthesia: No Social History Social History Household Members: Children Housing: House Do you presently have visiting nurse or other home services: No Patient Tobacco Use Status: Never used Tobacco Currently Displaying Signs/Symptoms of Drug Intoxication Withdrawal: No Have you been hit, kicked, punched, or otherwise hurt by someone within the past year? If so, by whom?: No Do you feel safe in your current relationship?: No Current Relationship Is there a partner from a previous relationship who is making you feel unsafe now?: No Are you made to feel afraid or neglected: No Are you DNR?: No Advance Directives: No Advance Directives Information Provided: Yes Do you have thoughts of harming others: None Do you have a plan to hurt others: No Plan Recently lost weight without trying: No Nutrition Risks: No Nutritional Risk Poor oral hygiene: No service: No Sexual orientation: Straight/Heterosexual Meds Allergies Allergy/AdvReac Type Severity Reaction Status Date / Time No Known Drug Allergies Allergy Unknown Verified 05/19/25 18:25 Active Medications: Current Medications Acetaminophen (Acetaminophen 325 Mg Tablet) 650 mg PO Q6H PRN PRN Reason: Headache/Pain, Scale 1-10 Last Admin: 05/26/25 16:13 Dose: 650 mg Al Hydroxide/Mg Hydroxide (Magnesium Hydrox/Alum Hydrox 30 Ml Oral.Susp) 30 ml PO Q6H PRN PRN Reason: Heartburn/Nausea Amantadine HCl (Amantadine Hcl 100 Mg Capsule) 100 mg PO BID [facility] Last Admin: 05/28/25 10:27 Dose: Not Given Ascorbic Acid (Ascorbic Acid 500 Mg Tablet) 1,000 mg PO DAILY [facility] Last Admin: 05/28/25 10:27 Dose: Not Given Aspirin (Aspirin 81 Mg Tab.Chew) 81 mg PO DAILY [facility] Last Admin: 05/28/25 10:27 Dose: Not Given Atorvastatin Calcium (Atorvastatin Calcium 20 Mg Tablet) 20 mg PO BEDTIME [facility] Last Admin: 05/27/25 22:07 Dose: 20 mg Chlorpromazine HCl (Chlorpromazine Hcl 25 Mg Tablet) 25 mg PO Q4H PRN PRN Reason: racing thoughts Last Admin: 05/25/25 21:32 Dose: 25 mg Clozapine (Clozapine 25 Mg Tablet) 150 mg PO BEDTIME [facility] Empagliflozin (Empagliflozin 25 Mg Tablet) 25 mg PO DAILY [facility] Last Admin: 05/28/25 10:27 Dose: Not Given Glipizide (Glipizide Xl 10 Mg Tab.Er.24) 10 mg PO DAILY [facility] Last Admin: 05/28/25 10:28 Dose: Not Given Hydroxyzine HCl (Hydroxyzine Hcl 25 Mg Tablet) 25 mg PO Q6H PRN PRN Reason: mild anxiety Last Admin: 05/27/25 15:54 Dose: 25 mg Lactated Ringer's (Lr) 1,000 mls @ 50 mls/hr IVCONT .Q20H [facility] Lorazepam (Lorazepam 0.5 Mg Tablet) 1.5 mg PO QID [facility] Last Admin: 05/28/25 12:17 Dose: Not Given Magnesium Hydroxide (Milk Of Magnesia 30 Ml Oral.Susp) 30 ml PO DAILY PRN PRN Reason: Constipation Metformin HCl (Metformin Hcl 1,000 Mg Tablet) 1,000 mg PO BIDWM [facility] Last Admin: 05/28/25 10:27 Dose: Not Given Multivitamins/Vitamin C (Multivitamin Tablet) 1 tab PO DAILY [facility] Last Admin: 05/28/25 10:28 Dose: Not Given Naloxone HCl (Naloxone Hcl 0.4 Mg/Ml Vial) 0.04 mg IVPUSH Q5M PRN PRN Reason: Excessive sedation or RR < 8 Nicotine (Nicotine 21 Mg Patch.Td24) 21 mg TRANSDERMA DAILY PRN PRN Reason: nicotine craving Nicotine Polacrilex (Nicotine Polacrilex 2 Mg Gum) 2 mg BUCCAL Q2H PRN PRN Reason: Nicotine Cravings Sertraline HCl (Sertraline Hcl 100 Mg Tablet) 100 mg PO DAILY [facility] Last Admin: 05/28/25 10:28 Dose: Not Given Trazodone HCl (Trazodone Hcl 50 Mg Tablet) 50 mg PO BEDTIME MRX1 PRN PRN Reason: Insomnia Last Admin: 05/21/25 22:19 Dose: 50 mg Vitamin D (Cholecalciferol (Vitamin D3) 25 Mcg Tablet) 125 mcg PO MoFr@0900 [facility] Last Admin: 05/26/25 16:47 Dose: 125 mcg Home Medications ?Medication ?Instructions ?Recorded ?Confirmed ?Last Taken ?Type multivitamin 1 tab PO DAILY 03/01/21 05/19/25 02/28/21 History empagliflozin 25 mg tablet 25 mg PO DAILY 04/29/24 05/19/25 Unknown History (Jardiance) [place] 3 Fish Oil 1,000 mg PO DAILY 05/19/25 05/19/25 Unknown History ascorbic acid (vitamin C) 1,000 mg 1,000 mg PO DAILY 05/19/25 05/19/25 Unknown History tablet (Vitamin C) aspirin 81 mg tablet 81 mg PO DAILY 05/19/25 05/19/25 Unknown History cholecalciferol (vitamin D3) 125 5,000 unit PO MOFR 05/19/25 05/21/25 Unknown History mcg (5,000 unit) tablet lamotrigine 50 mg PO BEDTIME 05/19/25 05/19/25 Unknown History lithium carbonate 300 mg 300 mg PO BEDTIME 05/19/25 05/19/25 Unknown History tablet,extended release (Lithobid) lorazepam 1 mg tablet 1 mg PO Q6H PRN Anxiety 05/19/25 05/19/25 Unknown History Exam Height,Weight and Vital Signs: Height 6 ft 1 in Weight 94.6 kg Last Vital Signs Temp 97.5 F 05/28/25 13:30 Pulse 103 H 05/28/25 13:30 Resp 20 05/28/25 13:30 BP 143/99 H 05/28/25 13:30 Pulse Ox 95 05/28/25 13:30 O2 Del Method Room Air 05/28/25 13:30 O2 Flow Rate 2 05/26/25 15:20 Pertinent Lab Results Pertinent Lab Results: Laboratory Tests 05/20/25 05/21/25 05/27/25 07:44 14:07 07:59 Absolute Neuts (auto) 7.3 6.3 Sodium 140 Potassium 3.9 Chloride 106 Carbon Dioxide 19 L Anion Gap 19 BUN 19 H Creatinine 1.00 0.96 Estim Creat Clear Calc 96.5 100.5 Estimated GFR > 60 > 60 Random Glucose 120 H Estimat Average Glucose 151 Hemoglobin A1c % 6.9 H Calcium 9.9 Magnesium 2.0 Total Bilirubin 0.7 AST 48 H ALT 80 H Alkaline Phosphatase 91 Total Protein 7.6 Albumin 5.3 H Triglycerides 78 Cholesterol 128 LDL Cholesterol, Calc 58 HDL Cholesterol 55 Vitamin B12 1176 H Folate 16.9 TSH 2.02 Free T4 1.23 Airway Mallampati Class: II (one cap bottom laterally) TM Dist: >3cm Neck ROM: Full Heart: rrr Lungs: cta Assessment and Plan Assessment Anesthesia Assessment: Anesthesia Plan Discussed and Chart Reviewed Final Anesthetic Review Family History of Problems with Anesthesia: No History of Problems with Anesthesia: No NPO: Yes ASA Class: III Final Preanesthetic Review: No Changes in Pt Med Stat, Meds/Allgs Chart Reviewed and Consent Obtained/Reviewed Patient Risk: Intermediate Procedure Risk: Intermediate Anesthetic Plan Anesthetic Plan: GA Disposition: Standard PACU
[2025-05-28] MEDS: 0.9 % Sodium Chloride Flush 10 ML SYRINGE 5 ML IVFLUSH (17:13)
--- NOTE | 2025-05-28 23:15 | HO.PSYCHPN ---
Subjective Subjective Date of Service: 05/28/25 Reason For Visit: Schizoaffective Disorder Interim History: Met with patient; discussed with team Patient says he is feeling a little better today; he still has some paranoia but is able to reason that no one on the unit has hurt him thus far and perhaps he is not really danger from peers. Still has paranoid questions about whether or not his kids her actually his own kids. Agrees with continue treatment plan Mental Status Exam Mental Status Exam Narrative: Pt is alert and oriented; behavior is more calm and cooperative and friendly on approach; patient is not in distress; dressed in hospital attire with good hygiene, clean-shaven; mood is described as little better and affect congruent, brighter; eye contact appropriate; Speech is normal volume, prosody, rate; not pressured; some psychomotor retardation present; thought process is goal directed and more linear; Thought content is addressing his paranoid ideations; treatment; denies any SI/HI. Denies AVH Patients insight and judgment impaired but improving Diagnostics Vital Signs (24Hr): Vital Signs - 24 hr 05/28/25 08:00 05/28/25 13:30 05/28/25 14:15 Temperature 97.5 F 97.5 F 98.1 F Pulse Rate 110 H 103 H 83 Respiratory Rate 20 17 Blood Pressure 154/97 H 143/99 H 138/81 Pulse Oximetry 97 95 93 Oxygen Delivery Method Room Air Room Air Nasal Cannula Oxygen Flow Rate 2 05/28/25 14:20 05/28/25 14:25 05/28/25 14:30 Temperature 97.3 F Pulse Rate 95 108 H 106 H Respiratory Rate 16 15 18 Blood Pressure 133/90 H 138/90 H 153/99 H Pulse Oximetry 93 95 92 Oxygen Delivery Method Nasal Cannula Nasal Cannula Room Air Oxygen Flow Rate 3 2 05/28/25 15:08 05/28/25 20:26 Temperature 97.5 F 98.4 F Pulse Rate 110 H 105 H Respiratory Rate 17 18 Blood Pressure 157/95 H 138/89 Pulse Oximetry 94 96 Oxygen Delivery Method Room Air Oxygen Flow Rate BMI result Body Mass Index 27.5 Labs 05/27/25 07:59 Labs: Laboratory Results - last 48 hr 05/27/25 07:59 Absolute Neuts (auto) 6.3 Creatinine 0.96 Estim Creat Clear Calc 100.5 Estimated GFR > 60 Medications Medications Current Medications Acetaminophen (Acetaminophen 325 Mg Tablet) 650 mg PO Q6H PRN PRN Reason: Headache/Pain, Scale 1-10 Last Admin: 05/28/25 15:40 Dose: 650 mg Al Hydroxide/Mg Hydroxide (Magnesium Hydrox/Alum Hydrox 30 Ml Oral.Susp) 30 ml PO Q6H PRN PRN Reason: Heartburn/Nausea Amantadine HCl (Amantadine Hcl 100 Mg Capsule) 100 mg PO BID [facility] Last Admin: 05/28/25 20:21 Dose: 100 mg Ascorbic Acid (Ascorbic Acid 500 Mg Tablet) 1,000 mg PO DAILY [facility] Last Admin: 05/28/25 10:27 Dose: Not Given Aspirin (Aspirin 81 Mg Tab.Chew) 81 mg PO DAILY [facility] Last Admin: 05/28/25 10:27 Dose: Not Given Atorvastatin Calcium (Atorvastatin Calcium 20 Mg Tablet) 20 mg PO BEDTIME [facility] Last Admin: 05/28/25 20:21 Dose: 20 mg Chlorpromazine HCl (Chlorpromazine Hcl 25 Mg Tablet) 25 mg PO Q4H PRN PRN Reason: racing thoughts Last Admin: 05/25/25 21:32 Dose: 25 mg Clozapine (Clozapine 25 Mg Tablet) 150 mg PO BEDTIME [facility] Last Admin: 05/28/25 20:19 Dose: 150 mg Empagliflozin (Empagliflozin 25 Mg Tablet) 25 mg PO DAILY [facility] Last Admin: 05/28/25 10:27 Dose: Not Given Glipizide (Glipizide Xl 10 Mg Tab.Er.24) 10 mg PO DAILY [facility] Last Admin: 05/28/25 10:28 Dose: Not Given Hydroxyzine HCl (Hydroxyzine Hcl 25 Mg Tablet) 25 mg PO Q6H PRN PRN Reason: mild anxiety Last Admin: 05/27/25 15:54 Dose: 25 mg Lorazepam (Lorazepam 0.5 Mg Tablet) 1.5 mg PO QID [facility] Last Admin: 05/28/25 20:18 Dose: 1.5 mg Magnesium Hydroxide (Milk Of Magnesia 30 Ml Oral.Susp) 30 ml PO DAILY PRN PRN Reason: Constipation Metformin HCl (Metformin Hcl 1,000 Mg Tablet) 1,000 mg PO BIDWM [facility] Last Admin: 05/28/25 17:15 Dose: 1,000 mg Multivitamins/Vitamin C (Multivitamin Tablet) 1 tab PO DAILY [facility] Last Admin: 05/28/25 10:28 Dose: Not Given Nicotine (Nicotine 21 Mg Patch.Td24) 21 mg TRANSDERMA DAILY PRN PRN Reason: nicotine craving Nicotine Polacrilex (Nicotine Polacrilex 2 Mg Gum) 2 mg BUCCAL Q2H PRN PRN Reason: Nicotine Cravings Sertraline HCl (Sertraline Hcl 100 Mg Tablet) 100 mg PO DAILY [facility] Last Admin: 05/28/25 10:28 Dose: Not Given Sodium Chloride (0.9 % Sodium Chloride Flush 10 Ml Syringe) 5 ml IVFLUSH QSHIFT [facility] Last Admin: 05/28/25 17:13 Dose: 5 ml Trazodone HCl (Trazodone Hcl 50 Mg Tablet) 50 mg PO BEDTIME MRX1 PRN PRN Reason: Insomnia Last Admin: 05/21/25 22:19 Dose: 50 mg Vitamin D (Cholecalciferol (Vitamin D3) 25 Mcg Tablet) 125 mcg PO MoFr@0900 [facility] Last Admin: 05/26/25 16:47 Dose: 125 mcg Allergies Allergies Allergy/AdvReac Type Severity Reaction Status Date / Time No Known Drug Allergies Allergy Unknown Verified 05/19/25 18:25 Assessment & Plan Assessment & Plan (1) MDD (major depressive disorder): Status: Acute Code(s): F32.9 - Major depressive disorder, single episode, unspecified Plan HPI: Patient is a 54-year-old male with history of bipolar disorder, catatonia who presents as a transfer from hospital on [facility] coming to [facility] for ECT in the face of catatonia following a manic episode. Patient with significant catatonic features having a difficult time talking or moving until typewriters functional tester started patient on Ativan and amantadine. Patient says that he ended up coming to the hospital because he had paranoid, racing thoughts that people Were out to get me. Patient says he had some issues with his finances, Internet addiction and that people on it took him for a lot of money. He said his family is upset and suggested he go to the hospital. Patient reports that for some amount of that time he was having what sounds like a manic episode, with increased libido, mind racing, blurting out his thoughts, and high energy. Patient said he is still feeling some paranoid thoughts, like when he drove here to the hospital from [facility], thinking people in the other cars with looking at him, maybe people were trying to harm him because .of some of the things I have done.. Though patient could not articulate what those were. He also said that he has been thinking maybe his son and daughter are not who he thinks they are and that maybe his was a plant meaning a set up by some conspiracy when they met. Patient open to reality testing but mostly thinks these things are true. Currently denies AH but says he was having AH days earlier; continues to worry that perhaps people want to harm him; denies any SI or HI. Discussed ECT as treatment and patient agrees, after going over risks/side effects. Also discussed medication and he agrees to continue with Ativan and amantadine (reviewed risks/side-effects) Impression: Patient with both catatonic symptoms and paranoid ideations; catatonia seems to be significantly helped with Ativan and Amantadine which hopefully bridge him until he can get ECT. Holding Zyprexa which he has been taking for years, to mitigate risks of catatonia. Will consider Clozaril 05/21 Patient remains paranoid that people on the unit think [he is] a risk.. For being unsafe... Patient says he is feeling very anxious and is not sure how this happened.. He remains amenable to getting ECT and continuing with both Ativan and amantadine. Service Desk Specialist discussed clozapine, risks/side effects and he agrees to start -patient took shower today and attended a group 05/22 Patient says he is feeling more anxious and paranoid today which he thinks is partly due to the nightmares he had last night a people grabbing him. Patient lists his plans for the day which include showering, shaving and attending group. Patient wanted to review medications which was done and he continues to agree with plan including continued titration with clozapine. Talked about lithium which he had not been on before and seems to have been started at [facility] and patient agrees to hold this for now. -Discussed case with Dr. Rosado who agrees that patient's catatonia seems to be stabilized with medications for now but plan remains to proceed with ECT as patient is fragile and highly vulnerable to decompensation (patient has history of severe catatonia). -will continue to titrate clozapine as it can treat delusions, catatonia and act as a mood stabilizer -will hold lithium; only at 300 mg which is subtherapeutic dose can increase risk of side effects during ECT -will continue Lamictal 25 mg for now and assess whether not this is necessary 05/23 continue titrate clozapine; ECT planned for Monday -will titrate Clozapine by 25mg a day 05/24/25 Review with team, review of plan of care, met with pt x 2. Reports difficult sx, racing of thought- chlorpromazine prn ordered temporarily to help with sx mgt. Pt asked to meet later in the day with significant paranoia, I worked with you in [facility], why are you here? Explained and encouraged pt to utilize team and regime to help manage sx. Pt reports I will not hurt myself or anyone else, will anyone hurt me here? Assured pt he was safe on the unit. Thought blocking noted. Plan: Chlorpromazine prn 05/26 Patient continues to report, anxious thoughts saying that my paranoia is kicking in... And patient remains worried that peers on the unit may have bad intentions towards him; patient seems to benefit from reality testing. Discussed ECT and initially patient said he was hesitant and wanted to cancel it because he is afraid something might happen during the procedure however after talking it through patient agreed to continue plan. Will increase Clozaril to 125 mg q.h.s. and likely continue titrating -will discontinue Lamictal as it is an antiepileptic and was just recently started [facility]; lithium remains discontinued was also started there -other patients getting ECT will lower Ativan to 1.5 mg q.i.d. 05/27/25 ect number 1 tolerated pt depressed blunted slowed ect in am cont clozapine 05/29Met with patient; discussed with team Patient says he is feeling a little better today; he still has some paranoia but is able to reason that no one on the unit has hurt him thus far and perhaps he is not really danger from peers. Still has paranoid questions about whether or not his kids her actually his own kids. Agrees with continue treatment plan Plan: CV q15min Continue Amantadine 100mg bid (for catatonia) Lower Ativan to 1.5 mg qid (for catatonia) Increase clozapine 150mg q.h.s.; will continue to titrate (for psychotic symptoms, catatonia and mood stability) hold zyprexa: Since risks catatonic symptoms Hold lithium: Subtherapeutic and can increase side effects during ECT ECT pending Type 2 diabetes Continue with metformin, Jardiance, and Glucotrol A1c 6.9 Hyperlipidemia Continue aspirin and Lipitor Lipid panel within normal limits ECT risk stratification Patient without previous problems with anesthesia, has previously undergone ECT RCRI 0 points, no further cardiac workup or treatment indicated at this time based on available information Patient denies any past problems with anesthesia. Outside EKG demonstrates normal sinus rhythm with a QTC of 390, no evidence of ischemic changes. New EKG ordered. Based on stated PMH, HPI, and physical exam, there are no There are no obvious contraindications to the planned procedure. Patient educated on: diagnosis, medication risk/benefits, ECT and therapeutic strategies Informed Consent: understands, does not understand and further education needed Reason for continued inpatient stay Substantial Risk for: rapid decompensation Time Spent With Patient Time: Total time managing care of this patient today ____ minutes.
[2025-05-29] MEDS: 0.9 % Sodium Chloride Flush 10 ML SYRINGE 5 ML IVFLUSH ×3 (00:17→17:41)
[2025-05-29 07:00] VITALS: BMI 27.7
[2025-05-29 08:00] VITALS: BP 115/74; PULSE 111; TEMP 36.9; O2SAT 94
[2025-05-29] MEDS: glipiZIDE XL 10 MG TAB.ER.24 PO (08:50)
[2025-05-29 19:54] VITALS: BP 119/73; PULSE 112; RESP 18; TEMP 36.4; O2SAT 98
[2025-05-30] VITALS (8 sets, daily range): BP systolic 124–157; BP diastolic 83–96; PULSE 102–115; RESP 12–20; TEMP 36.1–36.7; O2SAT 92–98
[2025-05-30] MEDS: 0.9 % Sodium Chloride Flush 10 ML SYRINGE 5 ML IVFLUSH (00:48)
--- NOTE | 2025-05-30 08:43 | HO.ECTPROC ---
ECT Procedure Note Diagnosis/Treatment Date of Service: 05/30/25 Diagnosis: Catatonia Previous ECT Date: 05/28/25 Current Treatment Number: 2 Treatment: Series Interval Clinical Notes: Electrode Placement: Bitemporal Program/Pulse Width: 0.50 Energy Percent: 100 Seizure Duration By EEG (in seconds): 71 Medications Administration General Anesthetic: Etomidate (16) Muscle Relaxant: Succinylcholine (100) Ancillary Medications Analgesics: Torodol - Pre ECT (30) Cardiovascular Medications: Glycopyrrolate (0.2) Miscillaneous Medications: Flumazenil (250 mcg) Airway Management Airway Management: Bag Mask Ventilation Treatment Recommendations Energy Percent: 70 Pt Tolerated Procedure w/o Issue: Yes Time: Total time managing care of this patient today ____ minutes. ECT Settings Device: THYMATRON DGx Electrode Placement: Bitemporal
--- NOTE | 2025-05-30 11:46 | P.CONAN_ITS ---
HPI - Anesthesia Eval Consult details Narrative: for ECT PMFSH Active Problems Active Problems: All Active Problems MDD (major depressive disorder) (Acute) CKD (chronic kidney disease) (Acute) Non-insulin dependent type 2 diabetes mellitus (Acute) Major depressive disorder, recurrent, in full remission with mood-congruent psychotic features (Acute) Generalized anxiety disorder (Acute) Major depressive disorder, recurrent episode, in partial remission with anxious distress (Acute) Bipolar affective, depress, sev w/ psych (Acute) Bipolar disorder (Acute) Type 2 diabetes mellitus (Chronic) Catatonic excitement (Acute) Bipolar I disorder with catatonia (Acute) Bipolar 2 disorder, major depressive episode (Acute) Social anxiety disorder (Acute) Bipolar 1 disorder, mixed, full remission (Acute) Past Medical History Medical History MDD (major depressive disorder) Non-insulin dependent type 2 diabetes mellitus Major depressive disorder, recurrent, in full remission with mood-congruent psychotic features Generalized anxiety disorder Inguinal hernia Sleep apnea Hyperlipemia Social anxiety disorder Bipolar 1 disorder Depression Diabetes Family History Family history of problems with anesthesia: No Surgical History Surgical History H/O hernia repair History of Problems with Anesthesia: No Social History Social History Household Members: Children Housing: House Do you presently have visiting nurse or other home services: No Patient Tobacco Use Status: Never used Tobacco service: No Sexual orientation: Straight/Heterosexual Meds Allergies Allergy/AdvReac Type Severity Reaction Status Date / Time No Known Drug Allergies Allergy Unknown Verified 05/19/25 18:25 Active Medications: Current Medications Acetaminophen (Acetaminophen 325 Mg Tablet) 650 mg PO Q6H PRN PRN Reason: Headache/Pain, Scale 1-10 Last Admin: 05/28/25 15:40 Dose: 650 mg Al Hydroxide/Mg Hydroxide (Magnesium Hydrox/Alum Hydrox 30 Ml Oral.Susp) 30 ml PO Q6H PRN PRN Reason: Heartburn/Nausea Amantadine HCl (Amantadine Hcl 100 Mg Capsule) 100 mg PO BID [facility] Last Admin: 05/30/25 10:24 Dose: Not Given Ascorbic Acid (Ascorbic Acid 500 Mg Tablet) 1,000 mg PO DAILY [facility] Last Admin: 05/30/25 08:52 Dose: Not Given Aspirin (Aspirin 81 Mg Tab.Chew) 81 mg PO DAILY [facility] Last Admin: 05/29/25 08:50 Dose: 81 mg Atorvastatin Calcium (Atorvastatin Calcium 20 Mg Tablet) 20 mg PO BEDTIME [facility] Last Admin: 05/29/25 20:37 Dose: 20 mg Chlorpromazine HCl (Chlorpromazine Hcl 25 Mg Tablet) 25 mg PO Q4H PRN PRN Reason: racing thoughts Last Admin: 05/25/25 21:32 Dose: 25 mg Clozapine 100 mg/ Clozapine 75 (mg) 175 mg PO BEDTIME [facility] Empagliflozin (Empagliflozin 25 Mg Tablet) 25 mg PO DAILY [facility] Last Admin: 05/30/25 10:23 Dose: Not Given Glipizide (Glipizide Xl 10 Mg Tab.Er.24) 10 mg PO DAILY [facility] Last Admin: 05/30/25 08:51 Dose: Not Given Hydroxyzine HCl (Hydroxyzine Hcl 25 Mg Tablet) 25 mg PO Q6H PRN PRN Reason: mild anxiety Last Admin: 05/27/25 15:54 Dose: 25 mg Lorazepam (Lorazepam 0.5 Mg Tablet) 1.5 mg PO QID [facility] Last Admin: 05/30/25 08:51 Dose: Not Given Magnesium Hydroxide (Milk Of Magnesia 30 Ml Oral.Susp) 30 ml PO DAILY PRN PRN Reason: Constipation Metformin HCl (Metformin Hcl 1,000 Mg Tablet) 1,000 mg PO BIDWM [facility] Last Admin: 05/30/25 08:48 Dose: Not Given Multivitamins/Vitamin C (Multivitamin Tablet) 1 tab PO DAILY [facility] Last Admin: 05/30/25 08:52 Dose: Not Given Nicotine (Nicotine 21 Mg Patch.Td24) 21 mg TRANSDERMA DAILY PRN PRN Reason: nicotine craving Nicotine Polacrilex (Nicotine Polacrilex 2 Mg Gum) 2 mg BUCCAL Q2H PRN PRN Reason: Nicotine Cravings Sertraline HCl (Sertraline Hcl 100 Mg Tablet) 100 mg PO DAILY [facility] Last Admin: 05/29/25 08:50 Dose: 100 mg Sodium Chloride (0.9 % Sodium Chloride Flush 10 Ml Syringe) 5 ml IVFLUSH QSHIFT [facility] Last Admin: 05/30/25 00:48 Dose: 5 ml Trazodone HCl (Trazodone Hcl 50 Mg Tablet) 50 mg PO BEDTIME MRX1 PRN PRN Reason: Insomnia Last Admin: 05/21/25 22:19 Dose: 50 mg Vitamin D (Cholecalciferol (Vitamin D3) 25 Mcg Tablet) 125 mcg PO MoFr@0900 [facility] Last Admin: 05/30/25 10:23 Dose: Not Given Home Medications ?Medication ?Instructions ?Recorded ?Confirmed ?Last Taken ?Type multivitamin 1 tab PO DAILY 03/01/2107/1302/28/21 History empagliflozin 25 mg tablet 25 mg PO DAILY 04/29/2407/13 Unknown History (Jardiance) Porum 3 Fish Oil 1,000 mg PO DAILY 05/19/25 1 07/20/24 Unknown History ascorbic acid (vitamin C) 1,000 mg 1,000 mg PO DAILY 1 07/20/24 05/19/25 Unknown History tablet (Vitamin C) aspirin 81 mg tablet 81 mg PO DAILY 05/19/2507/13 Unknown History cholecalciferol (vitamin D3) 125 5,000 unit PO MOFR 05/21/25 Unknown History mcg (5,000 unit) tablet lamotrigine 50 mg PO BEDTIME 05/19/25 Unknown History lithium carbonate 300 mg 300 mg PO BEDTIME 05/19/25 1 07/20/24 Unknown History tablet,extended release (Lithobid) lorazepam 1 mg tablet 1 mg PO Q6H PRN Anxiety 07/1305/19/25 Unknown History Exam Height,Weight and Vital Signs: Height 6 ft 1 in Weight 95.2 kg Last Vital Signs Temp 97.9 F 05/30/25 08:00 Pulse 104 H 05/30/25 08:00 Resp 18 05/29/25 19:54 BP 157/85 H 05/30/25 08:00 Pulse Ox 92 05/30/25 08:00 O2 Del Method Room Air 05/30/25 08:00 O2 Flow Rate 2 05/28/25 14:25 Pertinent Lab Results Pertinent Lab Results: Laboratory Tests 05/20/25 05/21/25 05/27/25 07:44 14:07 07:59 Absolute Neuts (auto) 7.3 6.3 Sodium 140 Potassium 3.9 Chloride 106 Carbon Dioxide 19 L Anion Gap 19 BUN 19 H Creatinine 1.00 0.96 Estim Creat Clear Calc 96.5 100.5 Estimated GFR > 60 > 60 Random Glucose 120 H Estimat Average Glucose 151 Hemoglobin A1c % 6.9 H Calcium 9.9 Magnesium 2.0 Total Bilirubin 0.7 AST 48 H ALT 80 H Alkaline Phosphatase 91 Total Protein 7.6 Albumin 5.3 H Triglycerides 78 Cholesterol 128 LDL Cholesterol, Calc 58 HDL Cholesterol 55 Vitamin B12 1176 H Folate 16.9 TSH 2.02 Free T4 1.23 Airway Mallampati Class: III TM Dist: <=3cm Neck ROM: Limited Heart: rrr Lungs: cta Assessment and Plan Assessment Anesthesia Assessment: Anesthesia Plan Discussed and Chart Reviewed Final Anesthetic Review Family History of Problems with Anesthesia: No History of Problems with Anesthesia: No NPO: Yes ASA Class: III Final Preanesthetic Review: No Changes in Pt Med Stat, Meds/Allgs Chart Reviewed, Consent Obtained/Reviewed and Anes Risks/Benef Reviewed Patient Risk: Intermediate Procedure Risk: Low Anesthetic Plan Anesthetic Plan: GA and Agree w/ Assess. and Plan Disposition: Standard PACU
--- NOTE | 2025-05-30 12:14 | HO.ECTPROC ---
ECT Procedure Note Diagnosis/Treatment Date of Service: 05/30/25 Diagnosis: Catatonia Current Treatment Number: 3 Treatment: Series Interval Clinical Notes: Pt reports feeling 'okay', better overall since starting ECT. Had RODRIGEZ after the last tx, which resolved by the end of the day. Otherwise denes any issues. See M5 progress notes for more details. Time: Total time managing care of this patient today ____ minutes. ECT Settings Device: THYMATRON DGx Electrode Placement: Bitemporal Program/Pulse Width: 0.50 Energy Percent: 100 Seizure Duration By EEG (in seconds): 57 By Motor Observation (in seconds): 34 Medications Administration General Anesthetic: Etomidate (14 mg) Muscle Relaxant: Succinylcholine (100 mg) Ancillary Medications Analgesics: Torodol - Pre ECT (30 mg ) Anti-emetics: Zofran - Pre ECT (4 mg ) Cardiovascular Medications: Glycopyrrolate (0.2 mg after ) Miscillaneous Medications: Propofol (30 mg after) Airway Management Airway Management: Bag Mask Ventilation Treatment Recommendations No Changes Recommended: No change Pt Tolerated Procedure w/o Issue: Yes
--- NOTE | 2025-05-30 12:14 | MHC.SHP ---
Pre-Procedural Eval Section A - 24 Hr Update-Section A only Date of Service: 05/30/25 The patient is an INPATIENT: Yes Changes since office visit: No Cold of Flu in the past 2 weeks, No New Medical Problems, No Changes in Medication and No Patient answered all questions The patient has been examined within 24 hours of the surgical procedure. The History & Physical has been completed within 30 days and I have reviewed it.: Yes Section B - Complete if H&P > 30 days Chief Complaint: Schizoaffective Disorder Allergies: Allergies Allergy/AdvReac Type Severity Reaction Status Date / Time No Known Drug Allergies Allergy Unknown Verified 05/19/25 18:25 Plan I have reviewed the history and physical and performed a pertinent physical examination on my patient. No changes have occurred unless specified. Time Spent With Patient Time: Total time managing care of this patient today ____ minutes.
[2025-05-30] MEDS: Throat Lozenge, Medicated LOZENGE 1 LOZENGE MUCOUS MEM (16:05)
--- NOTE | 2025-05-30 16:09 | HO.PSYCHPN ---
Subjective Subjective Date of Service: 05/30/25 Reason For Visit: Schizoaffective Disorder Interim History: Met with patient; discussed with team Patient reports that he is feeling better and that he is feeling more clear minded. Says he is tired post ECT. Asked a bit about medications which was discussed. Agrees with continue treatment plan Mental Status Exam Mental Status Exam Narrative: Pt is alert and oriented; behavior is more calm and cooperative and friendly on approach; patient is not in distress; dressed in hospital attire with good hygiene, clean-shaven; mood is described as more clear and affect congruent, brighter; eye contact appropriate; Speech is normal volume, prosody, rate; not pressured; some psychomotor retardation present; thought process is goal directed and more linear; Thought content is addressing his paranoid ideations which seemed to be waning; treatment; denies any SI/HI. Denies AVH Patients insight and judgment impaired but improving Diagnostics Vital Signs (24Hr): Vital Signs - 24 hr 05/29/25 19:54 05/30/25 08:00 05/30/25 12:03 Temperature 97.6 F 97.9 F 97.2 F Pulse Rate 112 H 104 H 102 H Respiratory Rate 18 20 Blood Pressure 119/73 157/85 H 124/96 H Pulse Oximetry 98 92 95 Oxygen Delivery Method Room Air Room Air Room Air Oxygen Flow Rate 05/30/25 12:37 05/30/25 12:42 05/30/25 12:47 Temperature 97.6 F Pulse Rate 105 H 109 H 115 H Respiratory Rate 12 15 17 Blood Pressure 130/85 140/91 H 147/88 H Pulse Oximetry 94 93 93 Oxygen Delivery Method Nasal Cannula with ETCO2 Nasal Cannula with ETCO2 Nasal Cannula with ETCO2 Oxygen Flow Rate 4 4 2 05/30/25 12:52 05/30/25 13:07 Temperature 97 F Pulse Rate 114 H 114 H Respiratory Rate 16 16 Blood Pressure 140/96 H 129/93 H Pulse Oximetry 92 94 Oxygen Delivery Method Nasal Cannula with ETCO2 Room Air Oxygen Flow Rate 2 BMI result Body Mass Index 27.7 Labs 05/27/25 07:59 Medications Medications Current Medications Acetaminophen (Acetaminophen 325 Mg Tablet) 650 mg PO Q6H PRN PRN Reason: Headache/Pain, Scale 1-10 Last Admin: 05/30/25 16:04 Dose: 650 mg Al Hydroxide/Mg Hydroxide (Magnesium Hydrox/Alum Hydrox 30 Ml Oral.Susp) 30 ml PO Q6H PRN PRN Reason: Heartburn/Nausea Amantadine HCl (Amantadine Hcl 100 Mg Capsule) 100 mg PO BID [facility] Last Admin: 05/30/25 10:24 Dose: Not Given Ascorbic Acid (Ascorbic Acid 500 Mg Tablet) 1,000 mg PO DAILY [facility] Last Admin: 05/30/25 08:52 Dose: Not Given Aspirin (Aspirin 81 Mg Tab.Chew) 81 mg PO DAILY [facility] Last Admin: 05/30/25 14:59 Dose: 81 mg Atorvastatin Calcium (Atorvastatin Calcium 20 Mg Tablet) 20 mg PO BEDTIME [facility] Last Admin: 05/29/25 20:37 Dose: 20 mg Benzocaine (Throat Lozenge, Medicated Lozenge) 1 lozenge MUCOUS MEM Q2H PRN PRN Reason: Sore Throat Last Admin: 05/30/25 16:05 Dose: 1 lozenge Chlorpromazine HCl (Chlorpromazine Hcl 25 Mg Tablet) 25 mg PO Q4H PRN PRN Reason: racing thoughts Last Admin: 05/25/25 21:32 Dose: 25 mg Clozapine 100 mg/ Clozapine 75 (mg) 175 mg PO BEDTIME [facility] Empagliflozin (Empagliflozin 25 Mg Tablet) 25 mg PO DAILY [facility] Last Admin: 05/30/25 10:23 Dose: Not Given Glipizide (Glipizide Xl 10 Mg Tab.Er.24) 10 mg PO DAILY [facility] Last Admin: 05/30/25 08:51 Dose: Not Given Hydroxyzine HCl (Hydroxyzine Hcl 25 Mg Tablet) 25 mg PO Q6H PRN PRN Reason: mild anxiety Last Admin: 05/27/25 15:54 Dose: 25 mg Lorazepam (Lorazepam 0.5 Mg Tablet) 1.5 mg PO QID [facility] Last Admin: 05/30/25 16:04 Dose: 1.5 mg Magnesium Hydroxide (Milk Of Magnesia 30 Ml Oral.Susp) 30 ml PO DAILY PRN PRN Reason: Constipation Metformin HCl (Metformin Hcl 1,000 Mg Tablet) 1,000 mg PO BIDWM [facility] Last Admin: 05/30/25 08:48 Dose: Not Given Multivitamins/Vitamin C (Multivitamin Tablet) 1 tab PO DAILY [facility] Last Admin: 05/30/25 08:52 Dose: Not Given Naloxone HCl (Naloxone Hcl 0.4 Mg/Ml Vial) 0.04 mg IVPUSH Q5M PRN PRN Reason: Excessive sedation or RR < 8 Nicotine (Nicotine 21 Mg Patch.Td24) 21 mg TRANSDERMA DAILY PRN PRN Reason: nicotine craving Nicotine Polacrilex (Nicotine Polacrilex 2 Mg Gum) 2 mg BUCCAL Q2H PRN PRN Reason: Nicotine Cravings Sertraline HCl (Sertraline Hcl 100 Mg Tablet) 100 mg PO DAILY [facility] Last Admin: 05/30/25 14:59 Dose: 100 mg Sodium Chloride (0.9 % Sodium Chloride Flush 10 Ml Syringe) 5 ml IVFLUSH QSHIFT [facility] Last Admin: 05/30/25 15:02 Dose: Not Given Trazodone HCl (Trazodone Hcl 50 Mg Tablet) 50 mg PO BEDTIME MRX1 PRN PRN Reason: Insomnia Last Admin: 05/21/25 22:19 Dose: 50 mg Vitamin D (Cholecalciferol (Vitamin D3) 25 Mcg Tablet) 125 mcg PO MoFr@0900 [facility] Last Admin: 05/30/25 10:23 Dose: Not Given Allergies Allergies Allergy/AdvReac Type Severity Reaction Status Date / Time No Known Drug Allergies Allergy Unknown Verified 05/19/25 18:25 Assessment & Plan Assessment & Plan (1) MDD (major depressive disorder): Status: Acute Code(s): F32.9 - Major depressive disorder, single episode, unspecified Plan HPI: Patient is a 54-year-old male with history of bipolar disorder, catatonia who presents as a transfer from hospital on [facility] [place] [facility] [place] in the face of catatonia following a manic episode. Patient with significant catatonic features having a difficult time talking or moving until service writer started patient on Ativan and amantadine. Patient says that he ended up coming to the hospital because he had paranoid, racing thoughts that people Were out to get me. Patient says he had some issues with his finances, Internet addiction and that people on it took him for a lot of money. He said his family is upset and suggested he go to the hospital. Patient reports that for some amount of that time he was having what sounds like a manic episode, with increased libido, mind racing, blurting out his thoughts, and high energy. Patient said he is still feeling some paranoid thoughts, like when he drove here to the hospital from [facility], thinking people in the other cars with looking at him, maybe people were trying to harm him because .of some of the things I have done.. Though patient could not articulate what those were. He also said that he has been thinking maybe his son and daughter are not who he thinks they are and that maybe his was a plant meaning a set up by some conspiracy when they met. Patient open to reality testing but mostly thinks these things are true. Currently denies AH but says he was having AH days earlier; continues to worry that perhaps people want to harm him; denies any SI or HI. Discussed ECT as treatment and patient agrees, after going over risks/side effects. Also discussed medication and he agrees to continue with Ativan and amantadine (reviewed risks/side-effects) Impression: Patient with both catatonic symptoms and paranoid ideations; catatonia seems to be significantly helped with Ativan and Amantadine which hopefully bridge him until he can get ECT. Holding Zyprexa which he has been taking for years, to mitigate risks of catatonia. Will consider Clozaril 05/21 Patient remains paranoid that people on the unit think [he is] a risk.. For being unsafe... Patient says he is feeling very anxious and is not sure how this happened.. He remains amenable to getting ECT and continuing with both Ativan and amantadine. Social Service Worker discussed clozapine, risks/side effects and he agrees to start -patient took shower today and attended a group 05/22 Patient says he is feeling more anxious and paranoid today which he thinks is partly due to the nightmares he had last night a people grabbing him. Patient lists his plans for the day which include showering, shaving and attending group. Patient wanted to review medications which was done and he continues to agree with plan including continued titration with clozapine. Talked about lithium which he had not been on before and seems to have been started at [facility] and patient agrees to hold this for now. -Discussed case with Dr. Rosado who agrees that patient's catatonia seems to be stabilized with medications for now but plan remains to proceed with ECT as patient is fragile and highly vulnerable to decompensation (patient has history of severe catatonia). -will continue to titrate clozapine as it can treat delusions, catatonia and act as a mood stabilizer -will hold lithium; only at 300 mg which is subtherapeutic dose can increase risk of side effects during ECT -will continue Lamictal 25 mg for now and assess whether not this is necessary 05/23 continue titrate clozapine; ECT planned for Monday -will titrate Clozapine by 25mg a day 05/24/25 Review with team, review of plan of care, met with pt x 2. Reports difficult sx, racing of thought- chlorpromazine prn ordered temporarily to help with sx mgt. Pt asked to meet later in the day with significant paranoia, I worked with you in [facility], why are you here? Explained and encouraged pt to utilize team and regime to help manage sx. Pt reports I will not hurt myself or anyone else, will anyone hurt me here? Assured pt he was safe on the unit. Thought blocking noted. Plan: Chlorpromazine prn 05/26 Patient continues to report, anxious thoughts saying that my paranoia is kicking in... And patient remains worried that peers on the unit may have bad intentions towards him; patient seems to benefit from reality testing. Discussed ECT and initially patient said he was hesitant and wanted to cancel it because he is afraid something might happen during the procedure however after talking it through patient agreed to continue plan. Will increase Clozaril to 125 mg q.h.s. and likely continue titrating -will discontinue Lamictal as it is an antiepileptic and was just recently started [facility]; lithium remains discontinued was also started there -other patients getting ECT will lower Ativan to 1.5 mg q.i.d. 05/27/25 ect number 1 tolerated pt depressed blunted slowed ect in am cont clozapine 05/29Met with patient; discussed with team Patient says he is feeling a little better today; he still has some paranoia but is able to reason that no one on the unit has hurt him thus far and perhaps he is not really danger from peers. Still has paranoid questions about whether or not his kids her actually his own kids. Agrees with continue treatment plan 05/30 patient remains doing better and feels more clear still with some paranoid ideations which seemed to be waning Plan: CV q15min Continue Amantadine 100mg bid (for catatonia) Lower Ativan to 1.5 mg qid (for catatonia) Increase clozapine 150mg q.h.s.; will continue to titrate (for psychotic symptoms, catatonia and mood stability) hold zyprexa: Since risks catatonic symptoms Hold lithium: Subtherapeutic and can increase side effects during ECT ECT pending Type 2 diabetes Continue with metformin, Jardiance, and Glucotrol A1c 6.9 Hyperlipidemia Continue aspirin and Lipitor Lipid panel within normal limits ECT risk stratification Patient without previous problems with anesthesia, has previously undergone ECT RCRI 0 points, no further cardiac workup or treatment indicated at this time based on available information Patient denies any past problems with anesthesia. Outside EKG demonstrates normal sinus rhythm with a QTC of 390, no evidence of ischemic changes. New EKG ordered. Based on stated PMH, HPI, and physical exam, there are no There are no obvious contraindications to the planned procedure. Patient educated on: diagnosis, medication risk/benefits and ECT Informed Consent: understands, does not understand and further education needed Reason for continued inpatient stay Substantial Risk for: rapid decompensation Time Spent With Patient Time: Total time managing care of this patient today ____ minutes.
[2025-05-31 08:00] VITALS: BP 138/94; PULSE 106; TEMP 36.3; O2SAT 94
[2025-05-31] MEDS: glipiZIDE XL 10 MG TAB.ER.24 PO (08:45)
--- NOTE | 2025-05-31 09:49 | HO.PSYCHPN ---
Subjective Subjective Date of Service: 05/31/25 Reason For Visit: Schizoaffective Disorder Interim History: met with patient; discussed with team; reviewed chart Family meeting with patient's mother Patient reports that he is overall feeling a little better. Discussed his history with being scammed on the Internet. -patient not sure if he was manic at the time; he says he thinks maybe he was however no one else observed any manic symptoms. -patient's mother explained that in 2022 patient got embroiled in On-line scam, which started as a relationship who got pt to invest in fake [employer] and patient lost $200,000 (from house sales, residential fund...savings; ran up credit card debt and filed for bankruptcy) -the thing that troubles her is that even after knowing he was scammed first time, it happened again in 2023, and he again was scammed into a fake relationship on-line, with a person eventually asking for money of which he gave the last little bit of it Mental Status Exam Mental Status Exam Narrative: Pt is alert and oriented; behavior is more calm and cooperative and friendly on approach; patient is not in distress; dressed in hospital attire with good hygiene, clean-shaven; mood is described as little better and affect congruent, brighter; eye contact appropriate; Speech is normal volume, prosody, rate; not pressured; some psychomotor retardation present; thought process is goal directed and more linear; Thought content is addressing his paranoid ideations which seemed to be waning; treatment; denies any SI/HI. Denies AVH Patients insight and judgment impaired but improving Diagnostics Vital Signs (24Hr): Vital Signs - 24 hr 05/30/25 12:03 05/30/25 12:37 05/30/25 12:42 Temperature 97.2 F 97.6 F Pulse Rate 102 H 105 H 109 H Respiratory Rate 20 12 15 Blood Pressure 124/96 H 130/85 140/91 H Pulse Oximetry 95 94 93 Oxygen Delivery Method Room Air Nasal Cannula with ETCO2 Nasal Cannula with ETCO2 Oxygen Flow Rate 4 4 05/30/25 12:47 05/30/25 12:52 05/30/25 13:07 Temperature 97 F Pulse Rate 115 H 114 H 114 H Respiratory Rate 17 16 16 Blood Pressure 147/88 H 140/96 H 129/93 H Pulse Oximetry 93 92 94 Oxygen Delivery Method Nasal Cannula with ETCO2 Nasal Cannula with ETCO2 Room Air Oxygen Flow Rate 2 2 05/30/25 20:00 05/31/25 08:00 Temperature 98.1 F 97.4 F Pulse Rate 102 H 106 H Respiratory Rate 20 Blood Pressure 126/83 138/94 H Pulse Oximetry 98 94 Oxygen Delivery Method Room Air Room Air Oxygen Flow Rate BMI result Body Mass Index 27.7 Labs 05/27/25 07:59 Medications Medications Current Medications Acetaminophen (Acetaminophen 325 Mg Tablet) 650 mg PO Q6H PRN PRN Reason: Headache/Pain, Scale 1-10 Last Admin: 05/30/25 16:04 Dose: 650 mg Al Hydroxide/Mg Hydroxide (Magnesium Hydrox/Alum Hydrox 30 Ml Oral.Susp) 30 ml PO Q6H PRN PRN Reason: Heartburn/Nausea Amantadine HCl (Amantadine Hcl 100 Mg Capsule) 100 mg PO BID ON LICENSE OF [facility] Last Admin: 05/31/25 08:46 Dose: 100 mg Ascorbic Acid (Ascorbic Acid 500 Mg Tablet) 1,000 mg PO DAILY ON LICENSE OF [facility] Last Admin: 05/31/25 08:46 Dose: 1,000 mg Aspirin (Aspirin 81 Mg Tab.Chew) 81 mg PO DAILY ON LICENSE OF [facility] Last Admin: 05/31/25 08:46 Dose: 81 mg Atorvastatin Calcium (Atorvastatin Calcium 20 Mg Tablet) 20 mg PO BEDTIME ON LICENSE OF [facility] Last Admin: 05/30/25 21:59 Dose: 20 mg Benzocaine (Throat Lozenge, Medicated Lozenge) 1 lozenge MUCOUS MEM Q2H PRN PRN Reason: Sore Throat Last Admin: 05/30/25 16:05 Dose: 1 lozenge Chlorpromazine HCl (Chlorpromazine Hcl 25 Mg Tablet) 25 mg PO Q4H PRN PRN Reason: racing thoughts Last Admin: 05/25/25 21:32 Dose: 25 mg Clozapine 100 mg/ Clozapine 75 (mg) 175 mg PO BEDTIME ON LICENSE OF [facility] Last Admin: 05/30/25 21:58 Dose: 175 mg Empagliflozin (Empagliflozin 25 Mg Tablet) 25 mg PO DAILY ON LICENSE OF [facility] Last Admin: 05/31/25 08:47 Dose: 25 mg Glipizide (Glipizide Xl 10 Mg Tab.Er.24) 10 mg PO DAILY ON LICENSE OF [facility] Last Admin: 05/31/25 08:45 Dose: 10 mg Hydroxyzine HCl (Hydroxyzine Hcl 25 Mg Tablet) 25 mg PO Q6H PRN PRN Reason: mild anxiety Last Admin: 05/27/25 15:54 Dose: 25 mg Lorazepam (Lorazepam 0.5 Mg Tablet) 1.5 mg PO QID ON LICENSE OF [facility] Last Admin: 05/31/25 08:47 Dose: 1.5 mg Magnesium Hydroxide (Milk Of Magnesia 30 Ml Oral.Susp) 30 ml PO DAILY PRN PRN Reason: Constipation Metformin HCl (Metformin Hcl 1,000 Mg Tablet) 1,000 mg PO BIDWM ON LICENSE OF [facility] Last Admin: 05/31/25 08:45 Dose: 1,000 mg Multivitamins/Vitamin C (Multivitamin Tablet) 1 tab PO DAILY ON LICENSE OF [facility] Last Admin: 05/31/25 08:46 Dose: 1 tab Naloxone HCl (Naloxone Hcl 0.4 Mg/Ml Vial) 0.04 mg IVPUSH Q5M PRN PRN Reason: Excessive sedation or RR < 8 Nicotine (Nicotine 21 Mg Patch.Td24) 21 mg TRANSDERMA DAILY PRN PRN Reason: nicotine craving Nicotine Polacrilex (Nicotine Polacrilex 2 Mg Gum) 2 mg BUCCAL Q2H PRN PRN Reason: Nicotine Cravings Sertraline HCl (Sertraline Hcl 100 Mg Tablet) 100 mg PO DAILY ON LICENSE OF [facility] Last Admin: 05/31/25 08:46 Dose: 100 mg Sodium Chloride (0.9 % Sodium Chloride Flush 10 Ml Syringe) 5 ml IVFLUSH QSHIFT ON LICENSE OF [facility] Last Admin: 05/31/25 02:42 Dose: Not Given Trazodone HCl (Trazodone Hcl 50 Mg Tablet) 50 mg PO BEDTIME MRX1 PRN PRN Reason: Insomnia Last Admin: 05/21/25 22:19 Dose: 50 mg Vitamin D (Cholecalciferol (Vitamin D3) 25 Mcg Tablet) 125 mcg PO MoFr@0900 ON LICENSE OF [facility] Last Admin: 05/30/25 10:23 Dose: Not Given Allergies Allergies Allergy/AdvReac Type Severity Reaction Status Date / Time No Known Drug Allergies Allergy Unknown Verified 05/19/25 18:25 Assessment & Plan Assessment & Plan (1) MDD (major depressive disorder): Status: Acute Code(s): F32.9 - Major depressive disorder, single episode, unspecified Plan HPI: Patient is a 54-year-old male with history of bipolar disorder, catatonia who presents as a transfer from hospital on [facility] coming to [facility] [place] in the face of catatonia following a manic episode. Patient with significant catatonic features having a difficult time talking or moving until scenario writer started patient on Ativan and amantadine. Patient says that he ended up coming to the hospital because he had paranoid, racing thoughts that people Were out to get me. Patient says he had some issues with his finances, Internet addiction and that people on it took him for a lot of money. He said his family is upset and suggested he go to the hospital. Patient reports that for some amount of that time he was having what sounds like a manic episode, with increased libido, mind racing, blurting out his thoughts, and high energy. Patient said he is still feeling some paranoid thoughts, like when he drove here to the hospital from [facility], thinking people in the other cars with looking at him, maybe people were trying to harm him because .of some of the things I have done.. Though patient could not articulate what those were. He also said that he has been thinking maybe his son and daughter are not who he thinks they are and that maybe his was a plant meaning a set up by some conspiracy when they met. Patient open to reality testing but mostly thinks these things are true. Currently denies AH but says he was having AH days earlier; continues to worry that perhaps people want to harm him; denies any SI or HI. Discussed ECT as treatment and patient agrees, after going over risks/side effects. Also discussed medication and he agrees to continue with Ativan and amantadine (reviewed risks/side-effects) Impression: Patient with both catatonic symptoms and paranoid ideations; catatonia seems to be significantly helped with Ativan and Amantadine which hopefully bridge him until he can get ECT. Holding Zyprexa which he has been taking for years, to mitigate risks of catatonia. Will consider Clozaril 05/21 Patient remains paranoid that people on the unit think [he is] a risk.. For being unsafe... Patient says he is feeling very anxious and is not sure how this happened.. He remains amenable to getting ECT and continuing with both Ativan and amantadine. Manager Provider Relations discussed clozapine, risks/side effects and he agrees to start -patient took shower today and attended a group 05/22 Patient says he is feeling more anxious and paranoid today which he thinks is partly due to the nightmares he had last night a people grabbing him. Patient lists his plans for the day which include showering, shaving and attending group. Patient wanted to review medications which was done and he continues to agree with plan including continued titration with clozapine. Talked about lithium which he had not been on before and seems to have been started at [facility] and patient agrees to hold this for now. -Discussed case with Dr. Rosado who agrees that patient's catatonia seems to be stabilized with medications for now but plan remains to proceed with ECT as patient is fragile and highly vulnerable to decompensation (patient has history of severe catatonia). -will continue to titrate clozapine as it can treat delusions, catatonia and act as a mood stabilizer -will hold lithium; only at 300 mg which is subtherapeutic dose can increase risk of side effects during ECT -will continue Lamictal 25 mg for now and assess whether not this is necessary 05/23 continue titrate clozapine; ECT planned for Monday -will titrate Clozapine by 25mg a day 05/24/25 Review with team, review of plan of care, met with pt x 2. Reports difficult sx, racing of thought- chlorpromazine prn ordered temporarily to help with sx mgt. Pt asked to meet later in the day with significant paranoia, I worked with you in [facility], why are you here? Explained and encouraged pt to utilize team and regime to help manage sx. Pt reports I will not hurt myself or anyone else, will anyone hurt me here? Assured pt he was safe on the unit. Thought blocking noted. Plan: Chlorpromazine prn 05/26 Patient continues to report, anxious thoughts saying that my paranoia is kicking in... And patient remains worried that peers on the unit may have bad intentions towards him; patient seems to benefit from reality testing. Discussed ECT and initially patient said he was hesitant and wanted to cancel it because he is afraid something might happen during the procedure however after talking it through patient agreed to continue plan. Will increase Clozaril to 125 mg q.h.s. and likely continue titrating -will discontinue Lamictal as it is an antiepileptic and was just recently started [facility]; lithium remains discontinued was also started there -other patients getting ECT will lower Ativan to 1.5 mg q.i.d. 05/27/25 ect number 1 tolerated pt depressed blunted slowed ect in am cont clozapine 05/29Met with patient; discussed with team Patient says he is feeling a little better today; he still has some paranoia but is able to reason that no one on the unit has hurt him thus far and perhaps he is not really danger from peers. Still has paranoid questions about whether or not his kids her actually his own kids. Agrees with continue treatment plan 05/30 patient remains doing better and feels more clear still with some paranoid ideations which seemed to be waning 05/31 Patient reports that he is overall feeling a little better. Discussed his history with being scammed on the Internet. -patient not sure if he was manic at the time; he says he thinks maybe he was however no one else observed any manic symptoms. -patient's mother explained that in 2022 patient got embroiled in On-line scam, which started as a relationship who got pt to invest in fake [employer] and patient lost $200,000 (from house sales, residential fund...savings; ran up credit card debt and filed for bankruptcy) -the thing that troubles her is that even after knowing he was scammed first time, it happened again in 2023, and he again was scammed into a fake relationship on-line, with a person eventually asking for money of which he gave the last little bit of it Impression: It is curious that patient was scanned 2 times with the same scam even after the 1st time, meeting with police, filing for bankruptcy. If patient was not having a manic episode of the time, this is troubling for baseline struggle in ability to navigate the community Plan: CV q15min Continue Amantadine 100mg bid (for catatonia) Lower Ativan to 1.5 mg qid (for catatonia) Increase clozapine 200mg q.h.s.; will continue to titrate (for psychotic symptoms, catatonia and mood stability) hold zyprexa: Since risks catatonic symptoms Hold lithium: Subtherapeutic and can increase side effects during ECT ECT pending Type 2 diabetes Continue with metformin, Jardiance, and Glucotrol A1c 6.9 Hyperlipidemia Continue aspirin and Lipitor Lipid panel within normal limits ECT risk stratification Patient without previous problems with anesthesia, has previously undergone ECT RCRI 0 points, no further cardiac workup or treatment indicated at this time based on available information Patient denies any past problems with anesthesia. Outside EKG demonstrates normal sinus rhythm with a QTC of 390, no evidence of ischemic changes. New EKG ordered. Based on stated PMH, HPI, and physical exam, there are no There are no obvious contraindications to the planned procedure. Patient educated on: diagnosis, medication risk/benefits, ECT and therapeutic strategies Informed Consent: understands, does not understand and further education needed Reason for continued inpatient stay Substantial Risk for: rapid decompensation Time Spent With Patient Time: Total time managing care of this patient today ____ minutes.
[2025-05-31 20:00] VITALS: BP 125/81; PULSE 111; RESP 15; TEMP 36.4; O2SAT 95
[2025-06-01 08:04] VITALS: BP 153/91; PULSE 96; TEMP 36.8; O2SAT 94
[2025-06-01] MEDS: glipiZIDE XL 10 MG TAB.ER.24 PO (09:06)
--- NOTE | 2025-06-01 18:05 | HO.PSYCHPN ---
Subjective Subjective Date of Service: 06/01/25 Reason For Visit: Schizoaffective Disorder Interim History: Met with patient; discussed with team Patient reports he remains doing overall better. Says this still some residual paranoia that people might want to hurt him buddies mostly able to talk himself out of it; he says he talked to his ex- and he believes that his kids are his own. He says how could it be any other way. Mental Status Exam Mental Status Exam Narrative: Pt is alert and oriented; behavior is more calm and cooperative and friendly on approach; patient is not in distress; dressed in hospital attire with good hygiene, clean-shaven; mood is described as little better and affect congruent, brighter; eye contact appropriate; Speech is normal volume, prosody, rate; not pressured; some psychomotor retardation present; thought process is goal directed and more linear; Thought content is on overcoming his paranoid ideations; treatment; denies any SI/HI. Denies AVH Patients insight and judgment impaired but improving Diagnostics Vital Signs (24Hr): Vital Signs - 24 hr 05/31/25 20:00 06/01/25 08:04 Temperature 97.6 F 98.2 F Pulse Rate 111 H 96 Respiratory Rate 15 Blood Pressure 125/81 153/91 H Pulse Oximetry 95 94 Oxygen Delivery Method Room Air BMI result Body Mass Index 27.7 Labs 05/27/25 07:59 Medications Medications Current Medications Acetaminophen (Acetaminophen 325 Mg Tablet) 650 mg PO Q6H PRN PRN Reason: Headache/Pain, Scale 1-10 Last Admin: 05/30/25 16:04 Dose: 650 mg Al Hydroxide/Mg Hydroxide (Magnesium Hydrox/Alum Hydrox 30 Ml Oral.Susp) 30 ml PO Q6H PRN PRN Reason: Heartburn/Nausea Amantadine HCl (Amantadine Hcl 100 Mg Capsule) 100 mg PO BID [facility] Last Admin: 06/01/25 09:05 Dose: 100 mg Ascorbic Acid (Ascorbic Acid 500 Mg Tablet) 1,000 mg PO DAILY [facility] Last Admin: 06/01/25 09:07 Dose: 1,000 mg Aspirin (Aspirin 81 Mg Tab.Chew) 81 mg PO DAILY [facility] Last Admin: 06/01/25 09:04 Dose: 81 mg Atorvastatin Calcium (Atorvastatin Calcium 20 Mg Tablet) 20 mg PO BEDTIME [facility] Last Admin: 05/31/25 20:32 Dose: 20 mg Benzocaine (Throat Lozenge, Medicated Lozenge) 1 lozenge MUCOUS MEM Q2H PRN PRN Reason: Sore Throat Last Admin: 05/30/25 16:05 Dose: 1 lozenge Chlorpromazine HCl (Chlorpromazine Hcl 25 Mg Tablet) 25 mg PO Q4H PRN PRN Reason: racing thoughts Last Admin: 05/25/25 21:32 Dose: 25 mg Clozapine (Clozapine 100 Mg Tablet) 200 mg PO BEDTIME [facility] Last Admin: 05/31/25 20:31 Dose: 200 mg Empagliflozin (Empagliflozin 25 Mg Tablet) 25 mg PO DAILY [facility] Last Admin: 06/01/25 08:35 Dose: 25 mg Glipizide (Glipizide Xl 10 Mg Tab.Er.24) 10 mg PO DAILY [facility] Last Admin: 06/01/25 09:06 Dose: 10 mg Hydroxyzine HCl (Hydroxyzine Hcl 25 Mg Tablet) 25 mg PO Q6H PRN PRN Reason: mild anxiety Last Admin: 05/27/25 15:54 Dose: 25 mg Lorazepam (Lorazepam 0.5 Mg Tablet) 1.5 mg PO QID [facility] Last Admin: 06/01/25 16:55 Dose: 1.5 mg Magnesium Hydroxide (Milk Of Magnesia 30 Ml Oral.Susp) 30 ml PO DAILY PRN PRN Reason: Constipation Metformin HCl (Metformin Hcl 1,000 Mg Tablet) 1,000 mg PO BIDWM [facility] Last Admin: 06/01/25 16:55 Dose: 1,000 mg Multivitamins/Vitamin C (Multivitamin Tablet) 1 tab PO DAILY [facility] Last Admin: 06/01/25 09:05 Dose: 1 tab Naloxone HCl (Naloxone Hcl 0.4 Mg/Ml Vial) 0.04 mg IVPUSH Q5M PRN PRN Reason: Excessive sedation or RR < 8 Nicotine (Nicotine 21 Mg Patch.Td24) 21 mg TRANSDERMA DAILY PRN PRN Reason: nicotine craving Nicotine Polacrilex (Nicotine Polacrilex 2 Mg Gum) 2 mg BUCCAL Q2H PRN PRN Reason: Nicotine Cravings Sertraline HCl (Sertraline Hcl 100 Mg Tablet) 100 mg PO DAILY [facility] Last Admin: 06/01/25 09:05 Dose: 100 mg Sodium Chloride (0.9 % Sodium Chloride Flush 10 Ml Syringe) 5 ml IVFLUSH QSHIFT KATEY On Hold: 05/31/25 10:42 Last Admin: 05/31/25 11:02 Dose: Not Given Trazodone HCl (Trazodone Hcl 50 Mg Tablet) 50 mg PO BEDTIME MRX1 PRN PRN Reason: Insomnia Last Admin: 05/21/25 22:19 Dose: 50 mg Vitamin D (Cholecalciferol (Vitamin D3) 25 Mcg Tablet) 125 mcg PO MoFr@0900 [facility] Last Admin: 05/30/25 10:23 Dose: Not Given Allergies Allergies Allergy/AdvReac Type Severity Reaction Status Date / Time No Known Drug Allergies Allergy Unknown Verified 05/19/25 18:25 Assessment & Plan Assessment & Plan (1) MDD (major depressive disorder): Status: Acute Code(s): F32.9 - Major depressive disorder, single episode, unspecified Plan HPI: Patient is a 54-year-old male with history of bipolar disorder, catatonia who presents as a transfer from hospital on [facility] coming to [facility] for ECT in the face of catatonia following a manic episode. Patient with significant catatonic features having a difficult time talking or moving until song writer started patient on Ativan and amantadine. Patient says that he ended up coming to the hospital because he had paranoid, racing thoughts that people Were out to get me. Patient says he had some issues with his finances, Internet addiction and that people on it took him for a lot of money. He said his family is upset and suggested he go to the hospital. Patient reports that for some amount of that time he was having what sounds like a manic episode, with increased libido, mind racing, blurting out his thoughts, and high energy. Patient said he is still feeling some paranoid thoughts, like when he drove here to the hospital from [facility], thinking people in the other cars with looking at him, maybe people were trying to harm him because .of some of the things I have done.. Though patient could not articulate what those were. He also said that he has been thinking maybe his son and daughter are not who he thinks they are and that maybe his was a plant meaning a set up by some conspiracy when they met. Patient open to reality testing but mostly thinks these things are true. Currently denies AH but says he was having AH days earlier; continues to worry that perhaps people want to harm him; denies any SI or HI. Discussed ECT as treatment and patient agrees, after going over risks/side effects. Also discussed medication and he agrees to continue with Ativan and amantadine (reviewed risks/side-effects) Impression: Patient with both catatonic symptoms and paranoid ideations; catatonia seems to be significantly helped with Ativan and Amantadine which hopefully bridge him until he can get ECT. Holding Zyprexa which he has been taking for years, to mitigate risks of catatonia. Will consider Clozaril 05/21 Patient remains paranoid that people on the unit think [he is] a risk.. For being unsafe... Patient says he is feeling very anxious and is not sure how this happened.. He remains amenable to getting ECT and continuing with both Ativan and amantadine. Quality Cloth Tester discussed clozapine, risks/side effects and he agrees to start -patient took shower today and attended a group 05/22 Patient says he is feeling more anxious and paranoid today which he thinks is partly due to the nightmares he had last night a people grabbing him. Patient lists his plans for the day which include showering, shaving and attending group. Patient wanted to review medications which was done and he continues to agree with plan including continued titration with clozapine. Talked about lithium which he had not been on before and seems to have been started at [facility] and patient agrees to hold this for now. -Discussed case with Dr. Rosado who agrees that patient's catatonia seems to be stabilized with medications for now but plan remains to proceed with ECT as patient is fragile and highly vulnerable to decompensation (patient has history of severe catatonia). -will continue to titrate clozapine as it can treat delusions, catatonia and act as a mood stabilizer -will hold lithium; only at 300 mg which is subtherapeutic dose can increase risk of side effects during ECT -will continue Lamictal 25 mg for now and assess whether not this is necessary 05/23 continue titrate clozapine; ECT planned for Monday -will titrate Clozapine by 25mg a day 05/24/25 Review with team, review of plan of care, met with pt x 2. Reports difficult sx, racing of thought- chlorpromazine prn ordered temporarily to help with sx mgt. Pt asked to meet later in the day with significant paranoia, I worked with you in [facility] hospital, why are you here? Explained and encouraged pt to utilize team and regime to help manage sx. Pt reports I will not hurt myself or anyone else, will anyone hurt me here? Assured pt he was safe on the unit. Thought blocking noted. Plan: Chlorpromazine prn 05/26 Patient continues to report, anxious thoughts saying that my paranoia is kicking in... And patient remains worried that peers on the unit may have bad intentions towards him; patient seems to benefit from reality testing. Discussed ECT and initially patient said he was hesitant and wanted to cancel it because he is afraid something might happen during the procedure however after talking it through patient agreed to continue plan. Will increase Clozaril to 125 mg q.h.s. and likely continue titrating -will discontinue Lamictal as it is an antiepileptic and was just recently started [facility]; lithium remains discontinued was also started there -other patients getting ECT will lower Ativan to 1.5 mg q.i.d. 05/27/25 ect number 1 tolerated pt depressed blunted slowed ect in am cont clozapine 05/29Met with patient; discussed with team Patient says he is feeling a little better today; he still has some paranoia but is able to reason that no one on the unit has hurt him thus far and perhaps he is not really danger from peers. Still has paranoid questions about whether or not his kids her actually his own kids. Agrees with continue treatment plan 05/30 patient remains doing better and feels more clear still with some paranoid ideations which seemed to be waning 05/31 Patient reports that he is overall feeling a little better. Discussed his history with being scammed on the Internet. -patient not sure if he was manic at the time; he says he thinks maybe he was however no one else observed any manic symptoms. -patient's mother explained that in 2022 patient got embroiled in [employer], which started as a relationship who got pt to invest in [email or web address] and patient lost $200,000 (from house sales, [facility] fund...savings; ran up credit card debt and filed for bankruptcy) -the thing that troubles her is that even after knowing he was scammed first time, it happened again in 2023, and he again was scammed into a fake relationship on-line, with a person eventually asking for money of which he gave the last little bit of it Impression: It is curious that patient was scanned 2 times with the same scam even after the 1st time, meeting with police, filing for bankruptcy. If patient was not having a manic episode of the time, this is troubling for baseline struggle in ability to navigate the community 06/01 ctp; ECT monday Plan: CV q15min Continue Amantadine 100mg bid (for catatonia) Lower Ativan to 1.5 mg qid (for catatonia) Increase clozapine 200mg q.h.s.; will continue to titrate (for psychotic symptoms, catatonia and mood stability) hold zyprexa: Since risks catatonic symptoms Hold lithium: Subtherapeutic and can increase side effects during ECT ECT pending Type 2 diabetes Continue with metformin, Jardiance, and Glucotrol A1c 6.9 Hyperlipidemia Continue aspirin and Lipitor Lipid panel within normal limits ECT risk stratification Patient without previous problems with anesthesia, has previously undergone ECT RCRI 0 points, no further cardiac workup or treatment indicated at this time based on available information Patient denies any past problems with anesthesia. Outside EKG demonstrates normal sinus rhythm with a QTC of 390, no evidence of ischemic changes. New EKG ordered. Based on stated PMH, HPI, and physical exam, there are no There are no obvious contraindications to the planned procedure. Patient educated on: diagnosis, ECT and therapeutic strategies Informed Consent: understands and further education needed Reason for continued inpatient stay Substantial Risk for: rapid decompensation Time Spent With Patient Time: Total time managing care of this patient today ____ minutes.
[2025-06-01 20:00] VITALS: BP 130/82; PULSE 109; RESP 15; TEMP 36.5; O2SAT 95
[2025-06-02] VITALS (8 sets, daily range): BP systolic 120–156; BP diastolic 60–114; PULSE 90–109; RESP 16–18; TEMP 36.2–36.9; O2SAT 93–100
--- NOTE | 2025-06-02 09:39 | HO.PSYCHPN ---
Subjective Subjective Date of Service: 06/02/25 Reason For Visit: Schizoaffective Disorder Interim History: Met with patient; discussed with team Patient doing well today, smiling, even chuckling at times with full range of emotions, 1st time this admission. He says he is feeling better and close to his regular self. Denies paranoid ideations about peers or his kids. Wondering how many were ECTs it should get and accepts that he should continue getting them, at least about 8 Mental Status Exam Mental Status Exam Narrative: Pt is alert and oriented; behavior is cooperative, friendly and calm; patient is not in distress; dressed in casual attire with adequate hygiene; mood is described as good and affect congruent; eye contact appropriate; Speech is normal rate, volume and prosody and not pressured; no psychomotor agitation/retardation present; thought process is organized and goal directed; Thought content is on tx; otherwise pertinent to relevant topics and without any delusional content, paranoid ideations or grandiosity; denies any SI/HI. Denies AVH and there is no evidence of perceptual disturbance. Patients insight and judgment appear intact. Diagnostics Vital Signs (24Hr): Vital Signs - 24 hr 06/01/25 20:00 06/02/25 08:00 Temperature 97.7 F 98.4 F Pulse Rate 109 H 109 H Respiratory Rate 15 18 Blood Pressure 130/82 124/82 Pulse Oximetry 95 95 Oxygen Delivery Method Room Air BMI result Body Mass Index 27.7 Labs 06/03/25 07:36 Medications Medications Current Medications Acetaminophen (Acetaminophen 325 Mg Tablet) 650 mg PO Q6H PRN PRN Reason: Headache/Pain, Scale 1-10 Last Admin: 05/30/25 16:04 Dose: 650 mg Al Hydroxide/Mg Hydroxide (Magnesium Hydrox/Alum Hydrox 30 Ml Oral.Susp) 30 ml PO Q6H PRN PRN Reason: Heartburn/Nausea Amantadine HCl (Amantadine Hcl 100 Mg Capsule) 100 mg PO BID [facility] Last Admin: 06/02/25 07:50 Dose: Not Given Ascorbic Acid (Ascorbic Acid 500 Mg Tablet) 1,000 mg PO DAILY [facility] Last Admin: 06/02/25 07:50 Dose: Not Given Aspirin (Aspirin 81 Mg Tab.Chew) 81 mg PO DAILY [facility] Last Admin: 06/02/25 07:50 Dose: Not Given Atorvastatin Calcium (Atorvastatin Calcium 20 Mg Tablet) 20 mg PO BEDTIME [facility] Last Admin: 06/01/25 20:33 Dose: 20 mg Benzocaine (Throat Lozenge, Medicated Lozenge) 1 lozenge MUCOUS MEM Q2H PRN PRN Reason: Sore Throat Last Admin: 05/30/25 16:05 Dose: 1 lozenge Chlorpromazine HCl (Chlorpromazine Hcl 25 Mg Tablet) 25 mg PO Q4H PRN PRN Reason: racing thoughts Last Admin: 05/25/25 21:32 Dose: 25 mg Clozapine (Clozapine 100 Mg Tablet) 200 mg PO BEDTIME [facility] Last Admin: 06/01/25 20:33 Dose: 200 mg Empagliflozin (Empagliflozin 25 Mg Tablet) 25 mg PO DAILY [facility] Last Admin: 06/02/25 07:51 Dose: Not Given Glipizide (Glipizide Xl 10 Mg Tab.Er.24) 10 mg PO DAILY [facility] Last Admin: 06/02/25 07:51 Dose: Not Given Hydroxyzine HCl (Hydroxyzine Hcl 25 Mg Tablet) 25 mg PO Q6H PRN PRN Reason: mild anxiety Last Admin: 05/27/25 15:54 Dose: 25 mg Lorazepam (Lorazepam 0.5 Mg Tablet) 1.5 mg PO QID [facility] Last Admin: 06/02/25 07:52 Dose: Not Given Magnesium Hydroxide (Milk Of Magnesia 30 Ml Oral.Susp) 30 ml PO DAILY PRN PRN Reason: Constipation Metformin HCl (Metformin Hcl 1,000 Mg Tablet) 1,000 mg PO BIDWM [facility] Last Admin: 06/02/25 07:50 Dose: Not Given Multivitamins/Vitamin C (Multivitamin Tablet) 1 tab PO DAILY [facility] Last Admin: 06/02/25 07:52 Dose: Not Given Naloxone HCl (Naloxone Hcl 0.4 Mg/Ml Vial) 0.04 mg IVPUSH Q5M PRN PRN Reason: Excessive sedation or RR < 8 Nicotine (Nicotine 21 Mg Patch.Td24) 21 mg TRANSDERMA DAILY PRN PRN Reason: nicotine craving Nicotine Polacrilex (Nicotine Polacrilex 2 Mg Gum) 2 mg BUCCAL Q2H PRN PRN Reason: Nicotine Cravings Sertraline HCl (Sertraline Hcl 100 Mg Tablet) 100 mg PO DAILY [facility] Last Admin: 06/02/25 07:52 Dose: Not Given Sodium Chloride (0.9 % Sodium Chloride Flush 10 Ml Syringe) 5 ml IVFLUSH QSHIFT [facility] On Hold: 05/31/25 10:42 Last Admin: 05/31/25 11:02 Dose: Not Given Trazodone HCl (Trazodone Hcl 50 Mg Tablet) 50 mg PO BEDTIME MRX1 PRN PRN Reason: Insomnia Last Admin: 06/01/25 20:33 Dose: 50 mg Vitamin D (Cholecalciferol (Vitamin D3) 25 Mcg Tablet) 125 mcg PO TuSa@0900 [facility] Allergies Allergies Allergy/AdvReac Type Severity Reaction Status Date / Time No Known Drug Allergies Allergy Unknown Verified 05/19/25 18:25 Assessment & Plan Assessment & Plan (1) MDD (major depressive disorder): Status: Acute Code(s): F32.9 - Major depressive disorder, single episode, unspecified Plan HPI: Patient is a 54-year-old male with history of bipolar disorder, catatonia who presents as a transfer from hospital on [facility] [place] [facility] [place] the face of catatonia following a manic episode. Patient with significant catatonic features having a difficult time talking or moving until typewriter mechanic started patient on Ativan and amantadine. Patient says that he ended up coming to the hospital because he had paranoid, racing thoughts that people Were out to get me. Patient says he had some issues with his finances, Internet addiction and that people on it took him for a lot of money. He said his family is upset and suggested he go to the hospital. Patient reports that for some amount of that time he was having what sounds like a manic episode, with increased libido, mind racing, blurting out his thoughts, and high energy. Patient said he is still feeling some paranoid thoughts, like when he drove here to the hospital from [facility], thinking people in the other cars with looking at him, maybe people were trying to harm him because .of some of the things I have done.. Though patient could not articulate what those were. He also said that he has been thinking maybe his son and daughter are not who he thinks they are and that maybe his was a plant meaning a set up by some conspiracy when they met. Patient open to reality testing but mostly thinks these things are true. Currently denies AH but says he was having AH days earlier; continues to worry that perhaps people want to harm him; denies any SI or HI. Discussed ECT as treatment and patient agrees, after going over risks/side effects. Also discussed medication and he agrees to continue with Ativan and amantadine (reviewed risks/side-effects) Impression: Patient with both catatonic symptoms and paranoid ideations; catatonia seems to be significantly helped with Ativan and Amantadine which hopefully bridge him until he can get ECT. Holding Zyprexa which he has been taking for years, to mitigate risks of catatonia. Will consider Clozaril 05/21 Patient remains paranoid that people on the unit think [he is] a risk.. For being unsafe... Patient says he is feeling very anxious and is not sure how this happened.. He remains amenable to getting ECT and continuing with both Ativan and amantadine. 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 Patient lists his plans for the day which include showering, shaving and attending group. Patient wanted to review medications which was done and he continues to agree with plan including continued titration with clozapine. Talked about lithium which he had not been on before and seems to have been started at [facility] and patient agrees to hold this for now. -Discussed case with Dr. Rosado who agrees that patient's catatonia seems to be stabilized with medications for now but plan remains to proceed with ECT as patient is fragile and highly vulnerable to decompensation (patient has history of severe catatonia). -will continue to titrate clozapine as it can treat delusions, catatonia and act as a mood stabilizer -will hold lithium; only at 300 mg which is subtherapeutic dose can increase risk of side effects during ECT -will continue Lamictal 25 mg for now and assess whether not this is necessary 05/23 continue titrate clozapine; ECT planned for Monday -will titrate Clozapine by 25mg a day 05/24/25 Review with team, review of plan of care, met with pt x 2. Reports difficult sx, racing of thought- chlorpromazine prn ordered temporarily to help with sx mgt. Pt asked to meet later in the day with significant paranoia, I worked with you in [facility], why are you here? Explained and encouraged pt to utilize team and regime to help manage sx. Pt reports I will not hurt myself or anyone else, will anyone hurt me here? Assured pt he was safe on the unit. Thought blocking noted. Plan: Chlorpromazine prn 05/26 Patient continues to report, anxious thoughts saying that my paranoia is kicking in... And patient remains worried that peers on the unit may have bad intentions towards him; patient seems to benefit from reality testing. Discussed ECT and initially patient said he was hesitant and wanted to cancel it because he is afraid something might happen during the procedure however after talking it through patient agreed to continue plan. Will increase Clozaril to 125 mg q.h.s. and likely continue titrating -will discontinue Lamictal as it is an antiepileptic and was just recently started [facility]; lithium remains discontinued was also started there -other patients getting ECT will lower Ativan to 1.5 mg q.i.d. 05/27/25 ect number 1 tolerated pt depressed blunted slowed ect in am cont clozapine 05/29Met with patient; discussed with team Patient says he is feeling a little better today; he still has some paranoia but is able to reason that no one on the unit has hurt him thus far and perhaps he is not really danger from peers. Still has paranoid questions about whether or not his kids her actually his own kids. Agrees with continue treatment plan 05/30 patient remains doing better and feels more clear still with some paranoid ideations which seemed to be waning 05/31 Patient reports that he is overall feeling a little better. Discussed his history with being scammed on the Internet. -patient not sure if he was manic at the time; he says he thinks maybe he was however no one else observed any manic symptoms. -patient's mother explained that in 2022 patient got embroiled in [employer], which started as a relationship who got pt to invest in [employer] and patient lost $200,000 (from house sales, penitentiary fund...savings; ran up credit card debt and filed for bankruptcy) -the thing that troubles her is that even after knowing he was scammed first time, it happened again in 2023, and he again was scammed into a fake relationship on-line, with a person eventually asking for money of which he gave the last little bit of it Impression: It is curious that patient was scanned 2 times with the same scam even after the 1st time, meeting with police, filing for bankruptcy. If patient was not having a manic episode of the time, this is troubling for baseline struggle in ability to navigate the community 06/01 ctp; ECT saturday 06/02 patient doing very well today, looks like his regular self, with full range of expression. No paranoid ideations. Agrees to continue with ECT as he remains vulnerable to regression Plan: CV q15min Continue Amantadine 100mg bid (for catatonia) Lower Ativan to 1.5 mg qid (for catatonia) Increase clozapine 200mg q.h.s.; will continue to titrate (for psychotic symptoms, catatonia and mood stability) hold zyprexa: Since risks catatonic symptoms Hold lithium: Subtherapeutic and can increase side effects during ECT ECT pending Type 2 diabetes Continue with metformin, Jardiance, and Glucotrol A1c 6.9 Hyperlipidemia Continue aspirin and Lipitor Lipid panel within normal limits ECT risk stratification Patient without previous problems with anesthesia, has previously undergone ECT RCRI 0 points, no further cardiac workup or treatment indicated at this time based on available information Patient denies any past problems with anesthesia. Outside EKG demonstrates normal sinus rhythm with a QTC of 390, no evidence of ischemic changes. New EKG ordered. Based on stated PMH, HPI, and physical exam, there are no There are no obvious contraindications to the planned procedure. Patient educated on: diagnosis, medication risk/benefits and ECT Informed Consent: understands Reason for continued inpatient stay Substantial Risk for: rapid decompensation Time Spent With Patient Time: Total time managing care of this patient today ____ minutes.
--- NOTE | 2025-06-02 11:56 | HO.ECTPROC ---
ECT Procedure Note Diagnosis/Treatment Date of Service: 06/02/25 Diagnosis: Catatonia Previous ECT Date: 05/30/25 Current Treatment Number: 4 Treatment: Series Interval Clinical Notes: Pt reports feeling better. Had RODRIGEZ after last tx. Otherwise denies any issues with last ECT. See M5 notes for details. Time: Total time managing care of this patient today ____ minutes. ECT Settings Device: THYMATRON DGx Electrode Placement: Bitemporal Program/Pulse Width: 0.50 Energy Percent: 100 Seizure Duration By EEG (in seconds): 45 By Motor Observation (in seconds): 14 Medications Administration General Anesthetic: Etomidate (14 sec) Muscle Relaxant: Succinylcholine (100 mg) Ancillary Medications Analgesics: Torodol - Pre ECT (30 mg) Anti-emetics: Zofran - Pre ECT (4 mg) Cardiovascular Medications: Labetolol (5 mg pre-tx ) Airway Management Airway Management: Bag Mask Ventilation Treatment Recommendations No Changes Recommended: No change Notes: Glyco 0.2 mg and propofol 30 mg used post-ECT in the past- not needed today Pt Tolerated Procedure w/o Issue: Yes
--- NOTE | 2025-06-02 12:00 | MHC.SHP ---
Pre-Procedural Eval Section A - 24 Hr Update-Section A only Date of Service: 06/02/25 The patient is an INPATIENT: Yes Changes since office visit: No Cold of Flu in the past 2 weeks, No New Medical Problems, No Changes in Medication and No Patient answered all questions The patient has been examined within 24 hours of the surgical procedure. The History & Physical has been completed within 30 days and I have reviewed it.: Yes Section B - Complete if H&P > 30 days Chief Complaint: Schizoaffective Disorder Allergies: Allergies Allergy/AdvReac Type Severity Reaction Status Date / Time No Known Drug Allergies Allergy Unknown Verified 05/19/25 18:25 Plan I have reviewed the history and physical and performed a pertinent physical examination on my patient. No changes have occurred unless specified. Time Spent With Patient Time: Total time managing care of this patient today ____ minutes.
--- NOTE | 2025-06-02 12:35 | P.CONAN_ITS ---
COUNT INCLUDES THE [facility] Active Problems Active Problems: All Active Problems MDD (major depressive disorder) (Acute) CKD (chronic kidney disease) (Acute) Non-insulin dependent type 2 diabetes mellitus (Acute) Major depressive disorder, recurrent, in full remission with mood-congruent psychotic features (Acute) Generalized anxiety disorder (Acute) Major depressive disorder, recurrent episode, in partial remission with anxious distress (Acute) Bipolar affective, depress, sev w/ psych (Acute) Bipolar disorder (Acute) Type 2 diabetes mellitus (Chronic) Catatonic excitement (Acute) Bipolar I disorder with catatonia (Acute) Bipolar 2 disorder, major depressive episode (Acute) Social anxiety disorder (Acute) Bipolar 1 disorder, mixed, full remission (Acute) Past Medical History Medical History MDD (major depressive disorder) Non-insulin dependent type 2 diabetes mellitus Major depressive disorder, recurrent, in full remission with mood-congruent psychotic features Generalized anxiety disorder Inguinal hernia Sleep apnea Hyperlipemia Social anxiety disorder Bipolar 1 disorder Depression Diabetes Family History Family history of problems with anesthesia: No Surgical History Surgical History H/O hernia repair History of Problems with Anesthesia: No Social History Social History Household Members: Children Housing: House Do you presently have visiting nurse or other home services: No Patient Tobacco Use Status: Never used Tobacco service: No Sexual orientation: Straight/Heterosexual Meds Allergies Allergy/AdvReac Type Severity Reaction Status Date / Time No Known Drug Allergies Allergy Unknown Verified 05/19/25 18:25 Active Medications: Current Medications Acetaminophen (Acetaminophen 325 Mg Tablet) 650 mg PO Q6H PRN PRN Reason: Headache/Pain, Scale 1-10 Last Admin: 05/30/25 16:04 Dose: 650 mg Al Hydroxide/Mg Hydroxide (Magnesium Hydrox/Alum Hydrox 30 Ml Oral.Susp) 30 ml PO Q6H PRN PRN Reason: Heartburn/Nausea Amantadine HCl (Amantadine Hcl 100 Mg Capsule) 100 mg PO BID [facility] Last Admin: 06/02/25 07:50 Dose: Not Given Ascorbic Acid (Ascorbic Acid 500 Mg Tablet) 1,000 mg PO DAILY [facility] Last Admin: 06/02/25 07:50 Dose: Not Given Aspirin (Aspirin 81 Mg Tab.Chew) 81 mg PO DAILY [facility] Last Admin: 06/02/25 07:50 Dose: Not Given Atorvastatin Calcium (Atorvastatin Calcium 20 Mg Tablet) 20 mg PO BEDTIME [facility] Last Admin: 06/01/25 20:33 Dose: 20 mg Benzocaine (Throat Lozenge, Medicated Lozenge) 1 lozenge MUCOUS MEM Q2H PRN PRN Reason: Sore Throat Last Admin: 05/30/25 16:05 Dose: 1 lozenge Chlorpromazine HCl (Chlorpromazine Hcl 25 Mg Tablet) 25 mg PO Q4H PRN PRN Reason: racing thoughts Last Admin: 05/25/25 21:32 Dose: 25 mg Clozapine (Clozapine 100 Mg Tablet) 200 mg PO BEDTIME [facility] Last Admin: 06/01/25 20:33 Dose: 200 mg Empagliflozin (Empagliflozin 25 Mg Tablet) 25 mg PO DAILY [facility] Last Admin: 06/02/25 07:51 Dose: Not Given Glipizide (Glipizide Xl 10 Mg Tab.Er.24) 10 mg PO DAILY [facility] Last Admin: 06/02/25 07:51 Dose: Not Given Hydroxyzine HCl (Hydroxyzine Hcl 25 Mg Tablet) 25 mg PO Q6H PRN PRN Reason: mild anxiety Last Admin: 05/27/25 15:54 Dose: 25 mg Lorazepam (Lorazepam 0.5 Mg Tablet) 1.5 mg PO QID [facility] Last Admin: 06/02/25 07:52 Dose: Not Given Magnesium Hydroxide (Milk Of Magnesia 30 Ml Oral.Susp) 30 ml PO DAILY PRN PRN Reason: Constipation Metformin HCl (Metformin Hcl 1,000 Mg Tablet) 1,000 mg PO BIDWM [facility] Last Admin: 06/02/25 07:50 Dose: Not Given Multivitamins/Vitamin C (Multivitamin Tablet) 1 tab PO DAILY [facility] Last Admin: 06/02/25 07:52 Dose: Not Given Naloxone HCl (Naloxone Hcl 0.4 Mg/Ml Vial) 0.04 mg IVPUSH Q5M PRN PRN Reason: Excessive sedation or RR < 8 Nicotine (Nicotine 21 Mg Patch.Td24) 21 mg TRANSDERMA DAILY PRN PRN Reason: nicotine craving Nicotine Polacrilex (Nicotine Polacrilex 2 Mg Gum) 2 mg BUCCAL Q2H PRN PRN Reason: Nicotine Cravings Sertraline HCl (Sertraline Hcl 100 Mg Tablet) 100 mg PO DAILY [facility] Last Admin: 06/02/25 07:52 Dose: Not Given Sodium Chloride (0.9 % Sodium Chloride Flush 10 Ml Syringe) 5 ml IVFLUSH QSHIFT [facility] On Hold: 05/31/25 10:42 Last Admin: 05/31/25 11:02 Dose: Not Given Trazodone HCl (Trazodone Hcl 50 Mg Tablet) 50 mg PO BEDTIME MRX1 PRN PRN Reason: Insomnia Last Admin: 06/01/25 20:33 Dose: 50 mg Vitamin D (Cholecalciferol (Vitamin D3) 25 Mcg Tablet) 125 mcg PO TuSa@0900 [facility] Home Medications ?Medication ?Instructions ?Recorded ?Confirmed ?Last Taken ?Type multivitamin 1 tab PO DAILY 03/01/2107/1302/28/21 History empagliflozin 25 mg tablet 25 mg PO DAILY 04/29/2407/13 Unknown History (Jardiance) [place] 3 Fish Oil 1,000 mg PO DAILY 05/19/25 1 07/20/24 Unknown History ascorbic acid (vitamin C) 1,000 mg 1,000 mg PO DAILY 1 07/20/24 05/19/25 Unknown History tablet (Vitamin C) aspirin 81 mg tablet 81 mg PO DAILY 05/19/2507/13 Unknown History cholecalciferol (vitamin D3) 125 5,000 unit PO MOFR 05/21/25 Unknown History mcg (5,000 unit) tablet lamotrigine 50 mg PO BEDTIME 05/19/25 Unknown History lithium carbonate 300 mg 300 mg PO BEDTIME 05/19/25 1 07/20/24 Unknown History tablet,extended release (Lithobid) lorazepam 1 mg tablet 1 mg PO Q6H PRN Anxiety 07/1305/19/25 Unknown History Exam Exam Date and Time: 12 Height,Weight and Vital Signs: Height 6 ft 1 in Weight 95.2 kg Last Vital Signs Temp 98.4 F 06/02/25 08:00 Pulse 109 H 06/02/25 08:00 Resp 18 06/02/25 08:00 BP 124/82 06/02/25 08:00 Pulse Ox 95 06/02/25 08:00 O2 Del Method Room Air 06/02/25 08:00 O2 Flow Rate 2 12/12/25 12:52 Pertinent Lab Results Pertinent Lab Results: Laboratory Tests 05/20/25 05/21/25 05/27/25 07:44 14:07 07:59 Absolute Neuts (auto) 7.3 6.3 Sodium 140 Potassium 3.9 Chloride 106 Carbon Dioxide 19 L Anion Gap 19 BUN 19 H Creatinine 1.00 0.96 Estim Creat Clear Calc 96.5 100.5 Estimated GFR > 60 > 60 Random Glucose 120 H Estimat Average Glucose 151 Hemoglobin A1c % 6.9 H Calcium 9.9 Magnesium 2.0 Total Bilirubin 0.7 AST 48 H ALT 80 H Alkaline Phosphatase 91 Total Protein 7.6 Albumin 5.3 H Triglycerides 78 Cholesterol 128 LDL Cholesterol, Calc 58 HDL Cholesterol 55 Vitamin B12 1176 H Folate 16.9 TSH 2.02 Free T4 1.23 Airway Mallampati Class: II TM Dist: >3cm Heart: st Lungs: unlabored Assessment and Plan Assessment Anesthesia Assessment: Anesthesia Plan Discussed and Chart Reviewed Final Anesthetic Review Family History of Problems with Anesthesia: No History of Problems with Anesthesia: No NPO: Yes ASA Class: II Final Preanesthetic Review: No Changes in Pt Med Stat, Meds/Allgs Chart Reviewed, Consent Obtained/Reviewed and Anes Risks/Benef Reviewed Patient Risk: Low Procedure Risk: Low Anesthetic Plan Anesthetic Plan: GA Disposition: Standard PACU
[2025-06-03 07:54] LABS: Neut%MD 62.3 %; WBCANC 8.5 X10*3/uL
[2025-06-03 08:00] VITALS: BP 131/78; PULSE 117; RESP 18; TEMP 36.5; O2SAT 96
[2025-06-03 08:06] LABS: Creatinine Clr Calc Pharmacy 87.7; Estimated Glomerular Filt Rate > 60
[2025-06-03] MEDS: glipiZIDE XL 10 MG TAB.ER.24 PO (08:28)
[2025-06-03] MEDS: Milk of Magnesia 30 ML ORAL.SUSP PO (14:35)
[2025-06-03 19:58] VITALS: BP 121/76; TEMP 36.7; O2SAT 96
--- NOTE | 2025-06-03 21:53 | HO.PSYCHPN ---
Subjective Subjective Date of Service: 06/03/25 Reason For Visit: Schizoaffective Disorder Interim History: Met with patient; discussed with team Patient more confused today, back with paranoid ideations thinking that peers on the unit are spying on him and feeling very anxious about it Mental Status Exam Mental Status Exam Narrative: Pt is alert and oriented; behavior is more calm and cooperative and friendly on approach; patient is not in distress; dressed in hospital attire with good hygiene, clean-shaven; mood is described as rough dayr and affect congruent,, anxious; eye contact appropriate; Speech with some latency; otherwise normal volume, prosody, rate; not pressured; some psychomotor retardation present; thought process is goal directed and more linear; Thought content is on paranoid ideations; treatment; denies any SI/HI. Denies AVH Patients insight and judgment impaired Diagnostics Vital Signs (24Hr): Vital Signs - 24 hr 06/03/25 08:00 06/03/25 19:58 Temperature 97.7 F 98.1 F Pulse Rate 117 H Respiratory Rate 18 Blood Pressure 131/78 121/76 Pulse Oximetry 96 96 Oxygen Delivery Method Room Air Room Air BMI result Body Mass Index 27.7 Labs 06/03/25 07:36 Labs: Laboratory Results - last 48 hr 06/03/25 07:36 Absolute Neuts (auto) 5.3 Creatinine 1.10 Estim Creat Clear Calc 87.7 Estimated GFR > 60 Medications Medications Current Medications Acetaminophen (Acetaminophen 325 Mg Tablet) 650 mg PO Q6H PRN PRN Reason: Headache/Pain, Scale 1-10 Last Admin: 06/02/25 20:29 Dose: 650 mg Al Hydroxide/Mg Hydroxide (Magnesium Hydrox/Alum Hydrox 30 Ml Oral.Susp) 30 ml PO Q6H PRN PRN Reason: Heartburn/Nausea Amantadine HCl (Amantadine Hcl 100 Mg Capsule) 100 mg PO BID [facility] Last Admin: 06/03/25 20:52 Dose: 100 mg Ascorbic Acid (Ascorbic Acid 500 Mg Tablet) 1,000 mg PO DAILY [facility] Last Admin: 06/03/25 08:28 Dose: 1,000 mg Aspirin (Aspirin 81 Mg Tab.Chew) 81 mg PO DAILY [facility] Last Admin: 06/03/25 08:28 Dose: 81 mg Atorvastatin Calcium (Atorvastatin Calcium 20 Mg Tablet) 20 mg PO BEDTIME [facility] Last Admin: 06/03/25 20:52 Dose: 20 mg Benzocaine (Throat Lozenge, Medicated Lozenge) 1 lozenge MUCOUS MEM Q2H PRN PRN Reason: Sore Throat Last Admin: 05/30/25 16:05 Dose: 1 lozenge Chlorpromazine HCl (Chlorpromazine Hcl 25 Mg Tablet) 25 mg PO Q4H PRN PRN Reason: racing thoughts Last Admin: 05/25/25 21:32 Dose: 25 mg Clozapine (Clozapine 100 Mg Tablet) 200 mg PO BEDTIME [facility] Last Admin: 06/03/25 20:52 Dose: 200 mg Empagliflozin (Empagliflozin 25 Mg Tablet) 25 mg PO DAILY [facility] Last Admin: 06/03/25 08:29 Dose: 25 mg Glipizide (Glipizide Xl 10 Mg Tab.Er.24) 10 mg PO DAILY [facility] Last Admin: 06/03/25 08:28 Dose: 10 mg Hydroxyzine HCl (Hydroxyzine Hcl 25 Mg Tablet) 25 mg PO Q6H PRN PRN Reason: mild anxiety Last Admin: 05/27/25 15:54 Dose: 25 mg Lorazepam (Lorazepam 1 Mg Tablet) 1 mg PO QID [facility] Last Admin: 06/03/25 20:36 Dose: Not Given Magnesium Hydroxide (Milk Of Magnesia 30 Ml Oral.Susp) 30 ml PO DAILY PRN PRN Reason: Constipation Last Admin: 06/03/25 14:35 Dose: 30 ml Metformin HCl (Metformin Hcl 1,000 Mg Tablet) 1,000 mg PO BIDWM [facility] Last Admin: 06/03/25 17:42 Dose: 1,000 mg Multivitamins/Vitamin C (Multivitamin Tablet) 1 tab PO DAILY [facility] Last Admin: 06/03/25 08:28 Dose: 1 tab Nicotine (Nicotine 21 Mg Patch.Td24) 21 mg TRANSDERMA DAILY PRN PRN Reason: nicotine craving Nicotine Polacrilex (Nicotine Polacrilex 2 Mg Gum) 2 mg BUCCAL Q2H PRN PRN Reason: Nicotine Cravings Sertraline HCl (Sertraline Hcl 100 Mg Tablet) 100 mg PO DAILY [facility] Last Admin: 06/03/25 08:28 Dose: 100 mg Sodium Chloride (0.9 % Sodium Chloride Flush 10 Ml Syringe) 5 ml IVFLUSH QSHIFT [facility] On Hold: 05/31/25 10:42 Last Admin: 05/31/25 11:02 Dose: Not Given Trazodone HCl (Trazodone Hcl 50 Mg Tablet) 50 mg PO BEDTIME MRX1 PRN PRN Reason: Insomnia Last Admin: 06/02/25 20:22 Dose: 50 mg Vitamin D (Cholecalciferol (Vitamin D3) 25 Mcg Tablet) 125 mcg PO TuSa@0900 [facility] Last Admin: 06/03/25 09:00 Dose: 125 mcg Allergies Allergies Allergy/AdvReac Type Severity Reaction Status Date / Time No Known Drug Allergies Allergy Unknown Verified 05/19/25 18:25 Assessment & Plan Assessment & Plan (1) Bipolar I disorder with catatonia: Status: Acute Code(s): F31.9 - Bipolar disorder, unspecified; F06.1 - Catatonic disorder due to known physiological condition (2) Generalized anxiety disorder: Status: Acute Code(s): F41.1 - Generalized anxiety disorder (3) Type 2 diabetes mellitus: Status: Chronic Code(s): E11.9 - Type 2 diabetes mellitus without complications Plan HPI: Patient is a 54-year-old male with history of bipolar disorder, catatonia who presents as a transfer from hospital on [facility] coming to [facility] for ECT in the face of catatonia following a manic episode. Patient with significant catatonic features having a difficult time talking or moving until feature writer started patient on Ativan and amantadine. Patient says that he ended up coming to the hospital because he had paranoid, racing thoughts that people Were out to get me. Patient says he had some issues with his finances, Internet addiction and that people on it took him for a lot of money. He said his family is upset and suggested he go to the hospital. Patient reports that for some amount of that time he was having what sounds like a manic episode, with increased libido, mind racing, blurting out his thoughts, and high energy. Patient said he is still feeling some paranoid thoughts, like when he drove here to the hospital from [facility], thinking people in the other cars with looking at him, maybe people were trying to harm him because .of some of the things I have done.. Though patient could not articulate what those were. He also said that he has been thinking maybe his son and daughter are not who he thinks they are and that maybe his was a plant meaning a set up by some conspiracy when they met. Patient open to reality testing but mostly thinks these things are true. Currently denies AH but says he was having AH days earlier; continues to worry that perhaps people want to harm him; denies any SI or HI. Discussed ECT as treatment and patient agrees, after going over risks/side effects. Also discussed medication and he agrees to continue with Ativan and amantadine (reviewed risks/side-effects) Impression: Patient with both catatonic symptoms and paranoid ideations; catatonia seems to be significantly helped with Ativan and Amantadine which hopefully bridge him until he can get ECT. Holding Zyprexa which he has been taking for years, to mitigate risks of catatonia. Will consider Clozaril 05/21 Patient remains paranoid that people on the unit think [he is] a risk.. For being unsafe... Patient says he is feeling very anxious and is not sure how this happened.. He remains amenable to getting ECT and continuing with both Ativan and amantadine. Research Home Economist discussed clozapine, risks/side effects and he agrees to start -patient took shower today and attended a group 05/22 Patient says he is feeling more anxious and paranoid today which he thinks is partly due to the nightmares he had last night a people grabbing him. Patient lists his plans for the day which include showering, shaving and attending group. Patient wanted to review medications which was done and he continues to agree with plan including continued titration with clozapine. Talked about lithium which he had not been on before and seems to have been started at [facility] and patient agrees to hold this for now. -Discussed case with Dr. Rosado who agrees that patient's catatonia seems to be stabilized with medications for now but plan remains to proceed with ECT as patient is fragile and highly vulnerable to decompensation (patient has history of severe catatonia). -will continue to titrate clozapine as it can treat delusions, catatonia and act as a mood stabilizer -will hold lithium; only at 300 mg which is subtherapeutic dose can increase risk of side effects during ECT -will continue Lamictal 25 mg for now and assess whether not this is necessary 05/23 continue titrate clozapine; ECT planned for Monday -will titrate Clozapine by 25mg a day 05/24/25 Review with team, review of plan of care, met with pt x 2. Reports difficult sx, racing of thought- chlorpromazine prn ordered temporarily to help with sx mgt. Pt asked to meet later in the day with significant paranoia, I worked with you in [facility], why are you here? Explained and encouraged pt to utilize team and regime to help manage sx. Pt reports I will not hurt myself or anyone else, will anyone hurt me here? Assured pt he was safe on the unit. Thought blocking noted. Plan: Chlorpromazine prn 05/26 Patient continues to report, anxious thoughts saying that my paranoia is kicking in... And patient remains worried that peers on the unit may have bad intentions towards him; patient seems to benefit from reality testing. Discussed ECT and initially patient said he was hesitant and wanted to cancel it because he is afraid something might happen during the procedure however after talking it through patient agreed to continue plan. Will increase Clozaril to 125 mg q.h.s. and likely continue titrating -will discontinue Lamictal as it is an antiepileptic and was just recently started [facility]; lithium remains discontinued was also started there -other patients getting ECT will lower Ativan to 1.5 mg q.i.d. 05/27/25 ect number 1 tolerated pt depressed blunted slowed ect in am cont clozapine 05/29Met with patient; discussed with team Patient says he is feeling a little better today; he still has some paranoia but is able to reason that no one on the unit has hurt him thus far and perhaps he is not really danger from peers. Still has paranoid questions about whether or not his kids her actually his own kids. Agrees with continue treatment plan 05/30 patient remains doing better and feels more clear still with some paranoid ideations which seemed to be waning 05/31 Patient reports that he is overall feeling a little better. Discussed his history with being scammed on the Internet. -patient not sure if he was manic at the time; he says he thinks maybe he was however no one else observed any manic symptoms. -patient's mother explained that in 2022 patient got embroiled in On-line scam, which started as a relationship who got pt to invest in fake [employer] and patient lost $200,000 (from house sales, jail fund...savings; ran up credit card debt and filed for bankruptcy) -the thing that troubles her is that even after knowing he was scammed first time, it happened again in 2023, and he again was scammed into a fake relationship on-line, with a person eventually asking for money of which he gave the last little bit of it Impression: It is curious that patient was scanned 2 times with the same scam even after the 1st time, meeting with police, filing for bankruptcy. If patient was not having a manic episode of the time, this is troubling for baseline struggle in ability to navigate the community 06/01 ctp; ECT saturday 06/02 patient doing very well today, looks like his regular self, with full range of expression. No paranoid ideations. Agrees to continue with ECT as he remains vulnerable to regression 06/03 patient did regress and is more confused today, with some speech latency and return of paranoid ideations, thinking that peers are spying on him which is making him quite anxious Plan: CV q15min Continue Amantadine 100mg bid (for catatonia) Lower Ativan to 1.5 mg qid (for catatonia) Increase clozapine 200mg q.h.s.; will continue to titrate (for psychotic symptoms, catatonia and mood stability) hold zyprexa: Since risks catatonic symptoms Hold lithium: Subtherapeutic and can increase side effects during ECT ECT pending Type 2 diabetes Continue with metformin, Jardiance, and Glucotrol A1c 6.9 Hyperlipidemia Continue aspirin and Lipitor Lipid panel within normal limits ECT risk stratification Patient without previous problems with anesthesia, has previously undergone ECT RCRI 0 points, no further cardiac workup or treatment indicated at this time based on available information Patient denies any past problems with anesthesia. Outside EKG demonstrates normal sinus rhythm with a QTC of 390, no evidence of ischemic changes. New EKG ordered. Based on stated PMH, HPI, and physical exam, there are no There are no obvious contraindications to the planned procedure. Patient educated on: diagnosis, ECT and therapeutic strategies Informed Consent: understands, does not understand and further education needed Reason for continued inpatient stay Substantial Risk for: rapid decompensation Time Spent With Patient Time: Total time managing care of this patient today ____ minutes.
[2025-06-04] VITALS (10 sets, daily range): BP systolic 118–139; BP diastolic 75–96; PULSE 88–105; RESP 14–20; TEMP 36.1–36.9; O2SAT 93–97
--- NOTE | 2025-06-04 06:46 | P.CONAN_ITS ---
[facility] Active Problems Active Problems: All Active Problems MDD (major depressive disorder) (Acute) CKD (chronic kidney disease) (Acute) Non-insulin dependent type 2 diabetes mellitus (Acute) Major depressive disorder, recurrent, in full remission with mood-congruent psychotic features (Acute) Generalized anxiety disorder (Acute) Major depressive disorder, recurrent episode, in partial remission with anxious distress (Acute) Bipolar affective, depress, sev w/ psych (Acute) Bipolar disorder (Acute) Type 2 diabetes mellitus (Chronic) Catatonic excitement (Acute) Bipolar I disorder with catatonia (Acute) Bipolar 2 disorder, major depressive episode (Acute) Social anxiety disorder (Acute) Bipolar 1 disorder, mixed, full remission (Acute) Past Medical History Medical History MDD (major depressive disorder) Non-insulin dependent type 2 diabetes mellitus Major depressive disorder, recurrent, in full remission with mood-congruent psychotic features Generalized anxiety disorder Inguinal hernia Sleep apnea Hyperlipemia Social anxiety disorder Bipolar 1 disorder Depression Diabetes Family History Family history of problems with anesthesia: No Surgical History Surgical History H/O hernia repair History of Problems with Anesthesia: No Social History Social History Household Members: Children Housing: House Do you presently have visiting nurse or other home services: No Patient Tobacco Use Status: Never used Tobacco service: No Sexual orientation: Straight/Heterosexual Meds Allergies Allergy/AdvReac Type Severity Reaction Status Date / Time No Known Drug Allergies Allergy Unknown Verified 05/19/25 18:25 Active Medications: Current Medications Acetaminophen (Acetaminophen 325 Mg Tablet) 650 mg PO Q6H PRN PRN Reason: Headache/Pain, Scale 1-10 Last Admin: 06/02/25 20:29 Dose: 650 mg Al Hydroxide/Mg Hydroxide (Magnesium Hydrox/Alum Hydrox 30 Ml Oral.Susp) 30 ml PO Q6H PRN PRN Reason: Heartburn/Nausea Amantadine HCl (Amantadine Hcl 100 Mg Capsule) 100 mg PO BID [facility] Last Admin: 06/03/25 20:52 Dose: 100 mg Ascorbic Acid (Ascorbic Acid 500 Mg Tablet) 1,000 mg PO DAILY [facility] Last Admin: 06/03/25 08:28 Dose: 1,000 mg Aspirin (Aspirin 81 Mg Tab.Chew) 81 mg PO DAILY [facility] Last Admin: 06/03/25 08:28 Dose: 81 mg Atorvastatin Calcium (Atorvastatin Calcium 20 Mg Tablet) 20 mg PO BEDTIME [facility] Last Admin: 06/03/25 20:52 Dose: 20 mg Benzocaine (Throat Lozenge, Medicated Lozenge) 1 lozenge MUCOUS MEM Q2H PRN PRN Reason: Sore Throat Last Admin: 05/30/25 16:05 Dose: 1 lozenge Chlorpromazine HCl (Chlorpromazine Hcl 25 Mg Tablet) 25 mg PO Q4H PRN PRN Reason: racing thoughts Last Admin: 05/25/25 21:32 Dose: 25 mg Clozapine (Clozapine 100 Mg Tablet) 200 mg PO BEDTIME [facility] Last Admin: 06/03/25 20:52 Dose: 200 mg Empagliflozin (Empagliflozin 25 Mg Tablet) 25 mg PO DAILY [facility] Last Admin: 06/03/25 08:29 Dose: 25 mg Glipizide (Glipizide Xl 10 Mg Tab.Er.24) 10 mg PO DAILY [facility] Last Admin: 06/03/25 08:28 Dose: 10 mg Hydroxyzine HCl (Hydroxyzine Hcl 25 Mg Tablet) 25 mg PO Q6H PRN PRN Reason: mild anxiety Last Admin: 05/27/25 15:54 Dose: 25 mg Lorazepam (Lorazepam 1 Mg Tablet) 1 mg PO QID [facility] Last Admin: 06/03/25 20:36 Dose: Not Given Magnesium Hydroxide (Milk Of Magnesia 30 Ml Oral.Susp) 30 ml PO DAILY PRN PRN Reason: Constipation Last Admin: 06/03/25 14:35 Dose: 30 ml Metformin HCl (Metformin Hcl 1,000 Mg Tablet) 1,000 mg PO BIDWM [facility] Last Admin: 06/03/25 17:42 Dose: 1,000 mg Multivitamins/Vitamin C (Multivitamin Tablet) 1 tab PO DAILY [facility] Last Admin: 06/03/25 08:28 Dose: 1 tab Nicotine (Nicotine 21 Mg Patch.Td24) 21 mg TRANSDERMA DAILY PRN PRN Reason: nicotine craving Nicotine Polacrilex (Nicotine Polacrilex 2 Mg Gum) 2 mg BUCCAL Q2H PRN PRN Reason: Nicotine Cravings Sertraline HCl (Sertraline Hcl 100 Mg Tablet) 100 mg PO DAILY [facility] Last Admin: 06/03/25 08:28 Dose: 100 mg Sodium Chloride (0.9 % Sodium Chloride Flush 10 Ml Syringe) 5 ml IVFLUSH QSHIFT [facility] On Hold: 05/31/25 10:42 Last Admin: 05/31/25 11:02 Dose: Not Given Trazodone HCl (Trazodone Hcl 50 Mg Tablet) 50 mg PO BEDTIME MRX1 PRN PRN Reason: Insomnia Last Admin: 06/02/25 20:22 Dose: 50 mg Vitamin D (Cholecalciferol (Vitamin D3) 25 Mcg Tablet) 125 mcg PO TuSa@0900 [facility] Last Admin: 06/03/25 09:00 Dose: 125 mcg Home Medications ?Medication ?Instructions ?Recorded ?Confirmed ?Last Taken ?Type multivitamin 1 tab PO DAILY 03/01/2107/1302/28/21 History empagliflozin 25 mg tablet 25 mg PO DAILY 04/29/2407/13 Unknown History (Jardiance) Peck 3 Fish Oil 1,000 mg PO DAILY 05/19/25 1 07/20/24 Unknown History ascorbic acid (vitamin C) 1,000 mg 1,000 mg PO DAILY 1 07/20/24 05/19/25 Unknown History tablet (Vitamin C) aspirin 81 mg tablet 81 mg PO DAILY 05/19/2507/13 Unknown History cholecalciferol (vitamin D3) 125 5,000 unit PO MOFR 05/21/25 Unknown History mcg (5,000 unit) tablet lamotrigine 50 mg PO BEDTIME 05/19/25 Unknown History lithium carbonate 300 mg 300 mg PO BEDTIME 05/19/25 1 07/20/24 Unknown History tablet,extended release (Lithobid) lorazepam 1 mg tablet 1 mg PO Q6H PRN Anxiety 07/1305/19/25 Unknown History Exam Height,Weight and Vital Signs: Height 6 ft 1 in Weight 95.2 kg Last Vital Signs Temp 97 F 06/04/25 06:42 Pulse 105 H 06/04/25 06:42 Resp 19 06/04/25 06:42 BP 118/75 06/04/25 06:42 Pulse Ox 94 06/04/25 06:42 O2 Del Method Room Air 06/04/25 06:42 O2 Flow Rate 2 06/02/25 13:01 Pertinent Lab Results Pertinent Lab Results: Laboratory Tests 05/20/25 05/21/25 05/27/25 07:44 14:07 07:59 Absolute Neuts (auto) 7.3 6.3 Sodium 140 Potassium 3.9 Chloride 106 Carbon Dioxide 19 L Anion Gap 19 BUN 19 H Creatinine 1.00 0.96 Estim Creat Clear Calc 96.5 100.5 Estimated GFR > 60 > 60 Random Glucose 120 H Estimat Average Glucose 151 Hemoglobin A1c % 6.9 H Calcium 9.9 Magnesium 2.0 Total Bilirubin 0.7 AST 48 H ALT 80 H Alkaline Phosphatase 91 Total Protein 7.6 Albumin 5.3 H Triglycerides 78 Cholesterol 128 LDL Cholesterol, Calc 58 HDL Cholesterol 55 Vitamin B12 1176 H Folate 16.9 TSH 2.02 Free T4 1.23 06/03/25 07:36 Absolute Neuts (auto) 5.3 Sodium Potassium Chloride Carbon Dioxide Anion Gap BUN Creatinine 1.10 Estim Creat Clear Calc 87.7 Estimated GFR > 60 Random Glucose Estimat Average Glucose Hemoglobin A1c % Calcium Magnesium Total Bilirubin AST ALT Alkaline Phosphatase Total Protein Albumin Triglycerides Cholesterol LDL Cholesterol, Calc HDL Cholesterol Vitamin B12 Folate TSH Free T4 Airway Mallampati Class: II (cap unsure of location ) TM Dist: >3cm Neck ROM: Full Heart: rrr Lungs: cta Assessment and Plan Assessment Anesthesia Assessment: Anesthesia Plan Discussed and Chart Reviewed Final Anesthetic Review Family History of Problems with Anesthesia: No History of Problems with Anesthesia: No NPO: Yes ASA Class: III Final Preanesthetic Review: No Changes in Pt Med Stat, Meds/Allgs Chart Reviewed and Consent Obtained/Reviewed Patient Risk: Intermediate Procedure Risk: Intermediate Anesthetic Plan Anesthetic Plan: GA Disposition: Standard PACU
--- NOTE | 2025-06-04 07:31 | MHC.SHP ---
Pre-Procedural Eval Section A - 24 Hr Update-Section A only Date of Service: 06/04/25 The patient is an INPATIENT: Yes Changes since office visit: No Cold of Flu in the past 2 weeks, No New Medical Problems, No Changes in Medication and No Patient answered all questions The patient has been examined within 24 hours of the surgical procedure. The History & Physical has been completed within 30 days and I have reviewed it.: Yes Section B - Complete if H&P > 30 days Chief Complaint: Schizoaffective Disorder Allergies: Allergies Allergy/AdvReac Type Severity Reaction Status Date / Time No Known Drug Allergies Allergy Unknown Verified 05/19/25 18:25 Plan I have reviewed the history and physical and performed a pertinent physical examination on my patient. No changes have occurred unless specified. Time Spent With Patient Time: Total time managing care of this patient today ____ minutes.
--- NOTE | 2025-06-04 07:55 | HO.ECTPROC ---
ECT Procedure Note Diagnosis/Treatment Date of Service: 06/04/25 Diagnosis: Catatonia Previous ECT Date: 06/02/25 Current Treatment Number: 5 Treatment: Series Interval Clinical Notes: pt somewhat fatigued paranoia cont pts on floor are not patients Time: Total time managing care of this patient today ____ minutes. ECT Settings Device: THYMATRON DGx Electrode Placement: Bitemporal Program/Pulse Width: 0.50 Energy Percent: 100 Seizure Duration By EEG (in seconds): 57 Medications Administration General Anesthetic: Etomidate (14 ) Muscle Relaxant: Succinylcholine (100 mg) Ancillary Medications Cardiovascular Medications: Labetolol (5 mg pre-tx ) Airway Management Airway Management: Bag Mask Ventilation Treatment Recommendations No Changes Recommended: No change Notes: Glyco 0.2 mg and propofol 30 mg used post-ECT in the past- not needed consider versed Pt Tolerated Procedure w/o Issue: Yes
[2025-06-04] MEDS: glipiZIDE XL 10 MG TAB.ER.24 PO (09:32)
--- NOTE | 2025-06-04 09:51 | P.PNPSI_ITS ---
Subjective Subjective Date of Service: 06/04/25 Reason For Visit: Schizoaffective Disorder Interim History: met with patient; discussed with team Patient reports today is a better day that he is pretty sure that all the patients here or simply just patients and that no one is spying on him. Discussed ECT treatments and he agrees to continue. Mental Status Exam Mental Status Exam Narrative: Pt is alert and oriented; behavior is cooperative, friendly and calm; patient is not in distress; dressed in hospital attire with adequate hygiene; mood is described as good and affect congruent, brighter; eye contact appropriate; Speech is normal rate, volume and prosody and not pressured; no psychomotor agitation/retardation present; thought process is organized and goal directed; Thought content is on tx; today, no delusional ideations; denies any SI/HI. Denies AVH and there is no evidence of perceptual disturbance. Patients insight and judgment improved Diagnostics Vital Signs (24Hr): Vital Signs - 24 hr 06/03/25 19:58 06/04/25 06:42 06/04/25 07:50 Temperature 98.1 F 97 F 97.2 F Pulse Rate 105 H 88 Respiratory Rate 19 16 Blood Pressure 121/76 118/75 139/96 H Pulse Oximetry 96 94 97 Oxygen Delivery Method Room Air Room Air Nasal Cannula Oxygen Flow Rate 5 06/04/25 07:55 06/04/25 08:00 06/04/25 08:00 Temperature 97.9 F Pulse Rate 93 95 96 Respiratory Rate 17 18 18 Blood Pressure 125/80 130/81 129/78 Pulse Oximetry 97 93 93 Oxygen Delivery Method Nasal Cannula Room Air Oxygen Flow Rate 2 06/04/25 08:05 06/04/25 08:15 06/04/25 08:30 Temperature Pulse Rate 96 93 99 Respiratory Rate 16 16 19 Blood Pressure 138/90 H 127/75 132/78 Pulse Oximetry 93 93 93 Oxygen Delivery Method Room Air Room Air Room Air Oxygen Flow Rate 06/04/25 08:45 06/04/25 09:00 Temperature 97.2 F Pulse Rate 99 97 Respiratory Rate 20 14 Blood Pressure 122/76 125/86 Pulse Oximetry 93 94 Oxygen Delivery Method Room Air Room Air Oxygen Flow Rate BMI result Body Mass Index 27.7 Labs 06/03/25 07:36 Labs: Laboratory Results - last 48 hr 06/03/25 07:36 Absolute Neuts (auto) 5.3 Creatinine 1.10 Estim Creat Clear Calc 87.7 Estimated GFR > 60 Medications Medications Current Medications Acetaminophen (Acetaminophen 325 Mg Tablet) 650 mg PO Q6H PRN PRN Reason: Headache/Pain, Scale 1-10 Last Admin: 06/02/25 20:29 Dose: 650 mg Al Hydroxide/Mg Hydroxide (Magnesium Hydrox/Alum Hydrox 30 Ml Oral.Susp) 30 ml PO Q6H PRN PRN Reason: Heartburn/Nausea Amantadine HCl (Amantadine Hcl 100 Mg Capsule) 100 mg PO BID [facility] Last Admin: 06/04/25 09:33 Dose: 100 mg Ascorbic Acid (Ascorbic Acid 500 Mg Tablet) 1,000 mg PO DAILY [facility] Last Admin: 06/04/25 09:32 Dose: 1,000 mg Aspirin (Aspirin 81 Mg Tab.Chew) 81 mg PO DAILY [facility] Last Admin: 06/04/25 09:32 Dose: 81 mg Atorvastatin Calcium (Atorvastatin Calcium 20 Mg Tablet) 20 mg PO BEDTIME [facility] Last Admin: 06/03/25 20:52 Dose: 20 mg Benzocaine (Throat Lozenge, Medicated Lozenge) 1 lozenge MUCOUS MEM Q2H PRN PRN Reason: Sore Throat Last Admin: 05/30/25 16:05 Dose: 1 lozenge Chlorpromazine HCl (Chlorpromazine Hcl 25 Mg Tablet) 25 mg PO Q4H PRN PRN Reason: racing thoughts Last Admin: 05/25/25 21:32 Dose: 25 mg Clozapine (Clozapine 100 Mg Tablet) 200 mg PO BEDTIME [facility] Last Admin: 06/03/25 20:52 Dose: 200 mg Empagliflozin (Empagliflozin 25 Mg Tablet) 25 mg PO DAILY [facility] Last Admin: 06/04/25 09:33 Dose: 25 mg Glipizide (Glipizide Xl 10 Mg Tab.Er.24) 10 mg PO DAILY [facility] Last Admin: 06/04/25 09:32 Dose: 10 mg Hydroxyzine HCl (Hydroxyzine Hcl 25 Mg Tablet) 25 mg PO Q6H PRN PRN Reason: mild anxiety Last Admin: 05/27/25 15:54 Dose: 25 mg Lorazepam (Lorazepam 1 Mg Tablet) 1 mg PO QID [facility] Last Admin: 06/04/25 09:32 Dose: 1 mg Magnesium Hydroxide (Milk Of Magnesia 30 Ml Oral.Susp) 30 ml PO DAILY PRN PRN Reason: Constipation Last Admin: 06/03/25 14:35 Dose: 30 ml Metformin HCl (Metformin Hcl 1,000 Mg Tablet) 1,000 mg PO BIDWM [facility] Last Admin: 06/04/25 09:32 Dose: 1,000 mg Multivitamins/Vitamin C (Multivitamin Tablet) 1 tab PO DAILY [facility] Last Admin: 06/04/25 09:33 Dose: 1 tab Naloxone HCl (Naloxone Hcl 0.4 Mg/Ml Vial) 0.04 mg IVPUSH Q5M PRN PRN Reason: Excessive sedation or RR < 8 Nicotine (Nicotine 21 Mg Patch.Td24) 21 mg TRANSDERMA DAILY PRN PRN Reason: nicotine craving Nicotine Polacrilex (Nicotine Polacrilex 2 Mg Gum) 2 mg BUCCAL Q2H PRN PRN Reason: Nicotine Cravings Sertraline HCl (Sertraline Hcl 100 Mg Tablet) 100 mg PO DAILY [facility] Last Admin: 06/04/25 09:32 Dose: 100 mg Sodium Chloride (0.9 % Sodium Chloride Flush 10 Ml Syringe) 5 ml IVFLUSH QSHIFT [facility] On Hold: 05/31/25 10:42 Last Admin: 05/31/25 11:02 Dose: Not Given Trazodone HCl (Trazodone Hcl 50 Mg Tablet) 50 mg PO BEDTIME MRX1 PRN PRN Reason: Insomnia Last Admin: 06/02/25 20:22 Dose: 50 mg Vitamin D (Cholecalciferol (Vitamin D3) 25 Mcg Tablet) 125 mcg PO TuSa@0900 [facility] Last Admin: 06/03/25 09:00 Dose: 125 mcg Allergies Allergies Allergy/AdvReac Type Severity Reaction Status Date / Time No Known Drug Allergies Allergy Unknown Verified 05/19/25 18:25 Assessment & Plan Assessment & Plan (1) Bipolar I disorder with catatonia: Status: Acute Code(s): F31.9 - Bipolar disorder, unspecified; F06.1 - Catatonic disorder due to known physiological condition (2) Generalized anxiety disorder: Status: Acute Code(s): F41.1 - Generalized anxiety disorder (3) Type 2 diabetes mellitus: Status: Chronic Code(s): E11.9 - Type 2 diabetes mellitus without complications Plan HPI: Patient is a 54-year-old male with history of bipolar disorder, catatonia who presents as a transfer from [facility] cod [place] [facility] [place] in the face of catatonia following a manic episode. Patient with significant catatonic features having a difficult time talking or moving until marketing copywriter started patient on Ativan and amantadine. Patient says that he ended up coming to the hospital because he had paranoid, racing thoughts that people Were out to get me. Patient says he had some issues with his finances, Internet addiction and that people on it took him for a lot of money. He said his family is upset and suggested he go to the hospital. Patient reports that for some amount of that time he was having what sounds like a manic episode, with increased libido, mind racing, blurting out his thoughts, and high energy. Patient said he is still feeling some paranoid thoughts, like when he drove here to the hospital from [facility], thinking people in the other cars with looking at him, maybe people were trying to harm him because .of some of the things I have done.. Though patient could not articulate what those were. He also said that he has been thinking maybe his son and daughter are not who he thinks they are and that maybe his was a plant meaning a set up by some conspiracy when they met. Patient open to reality testing but mostly thinks these things are true. Currently denies AH but says he was having AH days earlier; continues to worry that perhaps people want to harm him; denies any SI or HI. Discussed ECT as treatment and patient agrees, after going over risks/side effects. Also discussed medication and he agrees to continue with Ativan and amantadine (reviewed risks/side-effects) Impression: Patient with both catatonic symptoms and paranoid ideations; catatonia seems to be significantly helped with Ativan and Amantadine which hopefully bridge him until he can get ECT. Holding Zyprexa which he has been taking for years, to mitigate risks of catatonia. Will consider Clozaril 05/21 Patient remains paranoid that people on the unit think [he is] a risk.. For being unsafe... Patient says he is feeling very anxious and is not sure how this happened.. He remains amenable to getting ECT and continuing with both Ativan and amantadine. Fish Bailer discussed clozapine, risks/side effects and he agrees to start -patient took shower today and attended a group 05/22 Patient says he is feeling more anxious and paranoid today which he thinks is partly due to the nightmares he had last night a people grabbing him. Patient lists his plans for the day which include showering, shaving and attending group. Patient wanted to review medications which was done and he continues to agree with plan including continued titration with clozapine. Talked about lithium which he had not been on before and seems to have been started at [facility] and patient agrees to hold this for now. -Discussed case with Dr. Rosado who agrees that patient's catatonia seems to be stabilized with medications for now but plan remains to proceed with ECT as patient is fragile and highly vulnerable to decompensation (patient has history of severe catatonia). -will continue to titrate clozapine as it can treat delusions, catatonia and act as a mood stabilizer -will hold lithium; only at 300 mg which is subtherapeutic dose can increase risk of side effects during ECT -will continue Lamictal 25 mg for now and assess whether not this is necessary 05/23 continue titrate clozapine; ECT planned for Monday -will titrate Clozapine by 25mg a day 05/24/25 Review with team, review of plan of care, met with pt x 2. Reports difficult sx, racing of thought- chlorpromazine prn ordered temporarily to help with sx mgt. Pt asked to meet later in the day with significant paranoia, I worked with you in [facility], why are you here? Explained and encouraged pt to utilize team and regime to help manage sx. Pt reports I will not hurt myself or anyone else, will anyone hurt me here? Assured pt he was safe on the unit. Thought blocking noted. Plan: Chlorpromazine prn 05/26 Patient continues to report, anxious thoughts saying that my paranoia is kicking in... And patient remains worried that peers on the unit may have bad intentions towards him; patient seems to benefit from reality testing. Discussed ECT and initially patient said he was hesitant and wanted to cancel it because he is afraid something might happen during the procedure however after talking it through patient agreed to continue plan. Will increase Clozaril to 125 mg q.h.s. and likely continue titrating -will discontinue Lamictal as it is an antiepileptic and was just recently started [facility]; lithium remains discontinued was also started there -other patients getting ECT will lower Ativan to 1.5 mg q.i.d. 05/27/25 ect number 1 tolerated pt depressed blunted slowed ect in am cont clozapine 05/29Met with patient; discussed with team Patient says he is feeling a little better today; he still has some paranoia but is able to reason that no one on the unit has hurt him thus far and perhaps he is not really danger from peers. Still has paranoid questions about whether or not his kids her actually his own kids. Agrees with continue treatment plan 05/30 patient remains doing better and feels more clear still with some paranoid ideations which seemed to be waning 05/31 Patient reports that he is overall feeling a little better. Discussed his history with being scammed on the Internet. -patient not sure if he was manic at the time; he says he thinks maybe he was however no one else observed any manic symptoms. -patient's mother explained that in 2022 patient got embroiled in On-line scam, which started as a relationship who got pt to invest in fake [employer] and patient lost $200,000 (from house sales, chcf fund...savings; ran up credit card debt and filed for bankruptcy) -the thing that troubles her is that even after knowing he was scammed first time, it happened again in 2023, and he again was scammed into a fake relationship on-line, with a person eventually asking for money of which he gave the last little bit of it Impression: It is curious that patient was scanned 2 times with the same scam even after the 1st time, meeting with police, filing for bankruptcy. If patient was not having a manic episode of the time, this is troubling for baseline struggle in ability to navigate the community 06/01 ctp; ECT saturday 06/02 patient doing very well today, looks like his regular self, with full range of expression. No paranoid ideations. Agrees to continue with ECT as he remains vulnerable to regression 06/03 patient did regress and is more confused today, with some speech latency and return of paranoid ideations, thinking that peers are spying on him which is making him quite anxious 06/04 Patient doing better today; he reports today is a better day that he is pretty sure that all the patients are simply just patients and that no one is spying on him. Discussed ECT treatments and he agrees to continue. Plan: CV q15min Continue Amantadine 100mg bid (for catatonia) Ativan to 1 mg qid (for catatonia) Increased clozapine 200mg q.h.s.; will continue to titrate (for psychotic symptoms, catatonia and mood stability) hold zyprexa: Since risks catatonic symptoms Hold lithium: Subtherapeutic and can increase side effects during ECT ECT #5 on 06/04 ECT #6 pending 06/06 Type 2 diabetes Continue with metformin, Jardiance, and Glucotrol A1c 6.9 Hyperlipidemia Continue aspirin and Lipitor Lipid panel within normal limits ECT risk stratification Patient without previous problems with anesthesia, has previously undergone ECT RCRI 0 points, no further cardiac workup or treatment indicated at this time based on available information Patient denies any past problems with anesthesia. Outside EKG demonstrates normal sinus rhythm with a QTC of 390, no evidence of ischemic changes. New EKG ordered. Based on stated PMH, HPI, and physical exam, there are no There are no obvious contraindications to the planned procedure. Patient educated on: diagnosis, medication risk/benefits, ECT and therapeutic strategies Informed Consent: understands and further education needed Reason for continued inpatient stay Substantial Risk for: rapid decompensation Time Spent With Patient Time: Total time managing care of this patient today ____ minutes.
[2025-06-05 07:00] VITALS: BMI 28.1
[2025-06-05 08:00] VITALS: BP 134/78; PULSE 109; TEMP 37.2; O2SAT 94
[2025-06-05] MEDS: glipiZIDE XL 10 MG TAB.ER.24 PO (09:03)
--- NOTE | 2025-06-05 09:22 | HO.PSYCHPN ---
Subjective Subjective Date of Service: 06/05/25 Reason For Visit: Schizoaffective Disorder Interim History: Pt reports improvement with ECT. Hoping to return to [facility] next week post discharge. Denies SI,HI, AH, VH Has allowed application for [facility] services. CPAP ordered Medication Compliance: Yes Side effects from medications: No Attending Groups: Intermittent Review of Systems Acute medical concerns: No Medical Review of Systems: unchanged Review of Systems Review of Systems Denies Mental Status Exam Mental Status Exam Patient Appearance: Appropriate Patient Orientation: Person, Place, Time and Situation Level of Consciousness: Alert Patient Behavior: Talkative and Good Eye Contact Mood Description: Appropriate Affect Description: Appropriate Patient Cognition Impaired: No Ability to Follow Directions: Good Speech Pattern: Spontaneous Speech Depressive Symptoms: Thoughts of /Suicide (denies) Judgement: Good Diagnostics Vital Signs (24Hr): Vital Signs - 24 hr 06/04/25 20:17 06/05/25 08:00 Temperature 98.5 F 99 F Pulse Rate 99 109 H Respiratory Rate 18 Blood Pressure 139/78 134/78 Pulse Oximetry 96 94 Oxygen Delivery Method Room Air Room Air BMI result Body Mass Index 27.7 Labs 06/03/25 07:36 Medications Medications Current Medications Acetaminophen (Acetaminophen 325 Mg Tablet) 650 mg PO Q6H PRN PRN Reason: Headache/Pain, Scale 1-10 Last Admin: 06/02/25 20:29 Dose: 650 mg Al Hydroxide/Mg Hydroxide (Magnesium Hydrox/Alum Hydrox 30 Ml Oral.Susp) 30 ml PO Q6H PRN PRN Reason: Heartburn/Nausea Amantadine HCl (Amantadine Hcl 100 Mg Capsule) 100 mg PO BID [facility] Last Admin: 06/05/25 09:04 Dose: 100 mg Ascorbic Acid (Ascorbic Acid 500 Mg Tablet) 1,000 mg PO DAILY [facility] Last Admin: 06/05/25 09:03 Dose: 1,000 mg Aspirin (Aspirin 81 Mg Tab.Chew) 81 mg PO DAILY [facility] Last Admin: 06/05/25 09:03 Dose: 81 mg Atorvastatin Calcium (Atorvastatin Calcium 20 Mg Tablet) 20 mg PO BEDTIME [facility] Last Admin: 06/04/25 20:55 Dose: 20 mg Benzocaine (Throat Lozenge, Medicated Lozenge) 1 lozenge MUCOUS MEM Q2H PRN PRN Reason: Sore Throat Last Admin: 05/30/25 16:05 Dose: 1 lozenge Chlorpromazine HCl (Chlorpromazine Hcl 25 Mg Tablet) 25 mg PO Q4H PRN PRN Reason: racing thoughts Last Admin: 05/25/25 21:32 Dose: 25 mg Clozapine (Clozapine 100 Mg Tablet) 200 mg PO BEDTIME [facility] Last Admin: 06/04/25 20:55 Dose: 200 mg Empagliflozin (Empagliflozin 25 Mg Tablet) 25 mg PO DAILY [facility] Last Admin: 06/05/25 09:04 Dose: 25 mg Glipizide (Glipizide Xl 10 Mg Tab.Er.24) 10 mg PO DAILY [facility] Last Admin: 06/05/25 09:03 Dose: 10 mg Hydroxyzine HCl (Hydroxyzine Hcl 25 Mg Tablet) 25 mg PO Q6H PRN PRN Reason: mild anxiety Last Admin: 05/27/25 15:54 Dose: 25 mg Lorazepam (Lorazepam 1 Mg Tablet) 1 mg PO QID [facility] Last Admin: 06/05/25 09:03 Dose: 1 mg Magnesium Hydroxide (Milk Of Magnesia 30 Ml Oral.Susp) 30 ml PO DAILY PRN PRN Reason: Constipation Last Admin: 06/03/25 14:35 Dose: 30 ml Metformin HCl (Metformin Hcl 1,000 Mg Tablet) 1,000 mg PO BIDWM [facility] Last Admin: 06/05/25 09:03 Dose: 1,000 mg Multivitamins/Vitamin C (Multivitamin Tablet) 1 tab PO DAILY [facility] Last Admin: 06/05/25 09:03 Dose: 1 tab Naloxone HCl (Naloxone Hcl 0.4 Mg/Ml Vial) 0.04 mg IVPUSH Q5M PRN PRN Reason: Excessive sedation or RR < 8 Nicotine (Nicotine 21 Mg Patch.Td24) 21 mg TRANSDERMA DAILY PRN PRN Reason: nicotine craving Nicotine Polacrilex (Nicotine Polacrilex 2 Mg Gum) 2 mg BUCCAL Q2H PRN PRN Reason: Nicotine Cravings Sertraline HCl (Sertraline Hcl 100 Mg Tablet) 100 mg PO DAILY [facility] Last Admin: 06/05/25 09:03 Dose: 100 mg Sodium Chloride (0.9 % Sodium Chloride Flush 10 Ml Syringe) 5 ml IVFLUSH QSHIFT [facility] On Hold: 05/31/25 10:42 Last Admin: 05/31/25 11:02 Dose: Not Given Trazodone HCl (Trazodone Hcl 50 Mg Tablet) 50 mg PO BEDTIME MRX1 PRN PRN Reason: Insomnia Last Admin: 06/04/25 20:55 Dose: 50 mg Vitamin D (Cholecalciferol (Vitamin D3) 25 Mcg Tablet) 125 mcg PO TuSa@0900 [facility] Last Admin: 06/03/25 09:00 Dose: 125 mcg Allergies Allergies Allergy/AdvReac Type Severity Reaction Status Date / Time No Known Drug Allergies Allergy Unknown Verified 05/19/25 18:25 Assessment & Plan Assessment & Plan (1) Bipolar I disorder with catatonia: Status: Acute Code(s): F31.9 - Bipolar disorder, unspecified; F06.1 - Catatonic disorder due to known physiological condition (2) Generalized anxiety disorder: Status: Acute Code(s): F41.1 - Generalized anxiety disorder (3) Type 2 diabetes mellitus: Status: Chronic Code(s): E11.9 - Type 2 diabetes mellitus without complications Plan HPI: Patient is a 54-year-old male with history of bipolar disorder, catatonia who presents as a transfer from hospital on [facility] coming to [facility] for ECT in the face of catatonia following a manic episode. Patient with significant catatonic features having a difficult time talking or moving until insurance underwriter started patient on Ativan and amantadine. Patient says that he ended up coming to the hospital because he had paranoid, racing thoughts that people Were out to get me. Patient says he had some issues with his finances, Internet addiction and that people on it took him for a lot of money. He said his family is upset and suggested he go to the hospital. Patient reports that for some amount of that time he was having what sounds like a manic episode, with increased libido, mind racing, blurting out his thoughts, and high energy. Patient said he is still feeling some paranoid thoughts, like when he drove here to the hospital from [facility], thinking people in the other cars with looking at him, maybe people were trying to harm him because .of some of the things I have done.. Though patient could not articulate what those were. He also said that he has been thinking maybe his son and daughter are not who he thinks they are and that maybe his was a plant meaning a set up by some conspiracy when they met. Patient open to reality testing but mostly thinks these things are true. Currently denies AH but says he was having AH days earlier; continues to worry that perhaps people want to harm him; denies any SI or HI. Discussed ECT as treatment and patient agrees, after going over risks/side effects. Also discussed medication and he agrees to continue with Ativan and amantadine (reviewed risks/side-effects) Impression: Patient with both catatonic symptoms and paranoid ideations; catatonia seems to be significantly helped with Ativan and Amantadine which hopefully bridge him until he can get ECT. Holding Zyprexa which he has been taking for years, to mitigate risks of catatonia. Will consider Clozaril 05/21 Patient remains paranoid that people on the unit think [he is] a risk.. For being unsafe... Patient says he is feeling very anxious and is not sure how this happened.. He remains amenable to getting ECT and continuing with both Ativan and amantadine. Hand Booked Folder And Stitcher discussed clozapine, risks/side effects and he agrees to start -patient took shower today and attended a group 05/22 Patient says he is feeling more anxious and paranoid today which he thinks is partly due to the nightmares he had last night a people grabbing him. Patient lists his plans for the day which include showering, shaving and attending group. Patient wanted to review medications which was done and he continues to agree with plan including continued titration with clozapine. Talked about lithium which he had not been on before and seems to have been started at [facility] and patient agrees to hold this for now. -Discussed case with Dr. Rosado who agrees that patient's catatonia seems to be stabilized with medications for now but plan remains to proceed with ECT as patient is fragile and highly vulnerable to decompensation (patient has history of severe catatonia). -will continue to titrate clozapine as it can treat delusions, catatonia and act as a mood stabilizer -will hold lithium; only at 300 mg which is subtherapeutic dose can increase risk of side effects during ECT -will continue Lamictal 25 mg for now and assess whether not this is necessary 05/23 continue titrate clozapine; ECT planned for Monday -will titrate Clozapine by 25mg a day 05/24/25 Review with team, review of plan of care, met with pt x 2. Reports difficult sx, racing of thought- chlorpromazine prn ordered temporarily to help with sx mgt. Pt asked to meet later in the day with significant paranoia, I worked with you in [facility], why are you here? Explained and encouraged pt to utilize team and regime to help manage sx. Pt reports I will not hurt myself or anyone else, will anyone hurt me here? Assured pt he was safe on the unit. Thought blocking noted. Plan: Chlorpromazine prn 05/26 Patient continues to report, anxious thoughts saying that my paranoia is kicking in... And patient remains worried that peers on the unit may have bad intentions towards him; patient seems to benefit from reality testing. Discussed ECT and initially patient said he was hesitant and wanted to cancel it because he is afraid something might happen during the procedure however after talking it through patient agreed to continue plan. Will increase Clozaril to 125 mg q.h.s. and likely continue titrating -will discontinue Lamictal as it is an antiepileptic and was just recently started [facility]; lithium remains discontinued was also started there -other patients getting ECT will lower Ativan to 1.5 mg q.i.d. 05/27/25 ect number 1 tolerated pt depressed blunted slowed ect in am cont clozapine 05/29Met with patient; discussed with team Patient says he is feeling a little better today; he still has some paranoia but is able to reason that no one on the unit has hurt him thus far and perhaps he is not really danger from peers. Still has paranoid questions about whether or not his kids her actually his own kids. Agrees with continue treatment plan 05/30 patient remains doing better and feels more clear still with some paranoid ideations which seemed to be waning 05/31 Patient reports that he is overall feeling a little better. Discussed his history with being scammed on the Internet. -patient not sure if he was manic at the time; he says he thinks maybe he was however no one else observed any manic symptoms. -patient's mother explained that in 2022 patient got embroiled in [employer], which started as a relationship who got pt to invest in [employer] and patient lost $200,000 (from house sales, care home fund...savings; ran up credit card debt and filed for bankruptcy) -the thing that troubles her is that even after knowing he was scammed first time, it happened again in 2023, and he again was scammed into a fake relationship on-line, with a person eventually asking for money of which he gave the last little bit of it Impression: It is curious that patient was scanned 2 times with the same scam even after the 1st time, meeting with police, filing for bankruptcy. If patient was not having a manic episode of the time, this is troubling for baseline struggle in ability to navigate the community 06/01 ctp; ECT saturday 06/02 patient doing very well today, looks like his regular self, with full range of expression. No paranoid ideations. Agrees to continue with ECT as he remains vulnerable to regression 06/03 patient did regress and is more confused today, with some speech latency and return of paranoid ideations, thinking that peers are spying on him which is making him quite anxious 06/04 Patient doing better today; he reports today is a better day that he is pretty sure that all the patients are simply just patients and that no one is spying on him. Discussed ECT treatments and he agrees to continue. 06/05: Pt reports improvement with ECT. Hoping to return to [facility] next week post discharge. Denies SI,HI, AH, VH Has allowed application for [facility] services. CPAP ordered Plan: CV q15min Continue Amantadine 100mg bid (for catatonia) Ativan to 1 mg qid (for catatonia) Increased clozapine 200mg q.h.s.; will continue to titrate (for psychotic symptoms, catatonia and mood stability) hold zyprexa: Since risks catatonic symptoms Hold lithium: Subtherapeutic and can increase side effects during ECT ECT #5 on 06/04 ECT #6 pending 06/06 Type 2 diabetes Continue with metformin, Jardiance, and Glucotrol A1c 6.9 Hyperlipidemia Continue aspirin and Lipitor Lipid panel within normal limits ECT risk stratification Patient without previous problems with anesthesia, has previously undergone ECT RCRI 0 points, no further cardiac workup or treatment indicated at this time based on available information Patient denies any past problems with anesthesia. Outside EKG demonstrates normal sinus rhythm with a QTC of 390, no evidence of ischemic changes. New EKG ordered. Based on stated PMH, HPI, and physical exam, there are no There are no obvious contraindications to the planned procedure. Reason for continued inpatient stay Substantial Risk for: rapid decompensation Time Spent With Patient Time: Total time managing care of this patient today ____ minutes.
[2025-06-05 20:00] VITALS: BP 107/66; PULSE 109; RESP 18; TEMP 37; O2SAT 96
[2025-06-05 22:30] VITALS: RESP 20
[2025-06-06] VITALS (14 sets, daily range): BP systolic 111–186; BP diastolic 61–100; PULSE 77–123; RESP 17–20; TEMP 36.1–37.1; O2SAT 93–98
--- NOTE | 2025-06-06 | ECG_ITS ---
Test Reason : Fall Blood Pressure : */* mmHG Vent. Rate : 119 BPM Atrial Rate : 119 BPM P-R Int : 166 ms QRS Dur : 82 ms QT Int : 310 ms P-R-T Axes : 45 59 32 degrees QTcB Int : 436 ms Sinus tachycardia Cannot rule out Inferior infarct , age undetermined Abnormal ECG When compared with ECG of 20-May-2025 15:46, Minimal criteria for Inferior infarct are now Present Nonspecific T wave abnormality, improved in Lateral leads Referred By: Harrison Anglin Electronically Signed By: Ajay Duran
--- NOTE | 2025-06-06 08:25 | HO.ANESPROP2 ---
HPI - Anesthesia Eval Consult details Narrative: ect PMFSH Active Problems Active Problems: All Active Problems MDD (major depressive disorder) (Acute) CKD (chronic kidney disease) (Acute) Non-insulin dependent type 2 diabetes mellitus (Acute) Major depressive disorder, recurrent, in full remission with mood-congruent psychotic features (Acute) Generalized anxiety disorder (Acute) Major depressive disorder, recurrent episode, in partial remission with anxious distress (Acute) Bipolar affective, depress, sev w/ psych (Acute) Bipolar disorder (Acute) Type 2 diabetes mellitus (Chronic) Catatonic excitement (Acute) Bipolar I disorder with catatonia (Acute) Bipolar 2 disorder, major depressive episode (Acute) Social anxiety disorder (Acute) Bipolar 1 disorder, mixed, full remission (Acute) Past Medical History Medical History MDD (major depressive disorder) Non-insulin dependent type 2 diabetes mellitus Major depressive disorder, recurrent, in full remission with mood-congruent psychotic features Generalized anxiety disorder Inguinal hernia Sleep apnea Hyperlipemia Social anxiety disorder Bipolar 1 disorder Depression Diabetes Family History Family history of problems with anesthesia: No Surgical History Surgical History H/O hernia repair History of Problems with Anesthesia: No Social History Social History Household Members: Children Housing: House Do you presently have visiting nurse or other home services: No Patient Tobacco Use Status: Never used Tobacco service: No Sexual orientation: Straight/Heterosexual Meds Allergies Allergy/AdvReac Type Severity Reaction Status Date / Time No Known Drug Allergies Allergy Unknown Verified 05/19/25 18:25 Active Medications: Current Medications Acetaminophen (Acetaminophen 325 Mg Tablet) 650 mg PO Q6H PRN PRN Reason: Headache/Pain, Scale 1-10 Last Admin: 06/06/25 00:38 Dose: 650 mg Al Hydroxide/Mg Hydroxide (Magnesium Hydrox/Alum Hydrox 30 Ml Oral.Susp) 30 ml PO Q6H PRN PRN Reason: Heartburn/Nausea Amantadine HCl (Amantadine Hcl 100 Mg Capsule) 100 mg PO BID [facility] Last Admin: 06/05/25 21:09 Dose: 100 mg Ascorbic Acid (Ascorbic Acid 500 Mg Tablet) 1,000 mg PO DAILY [facility] Last Admin: 06/05/25 09:03 Dose: 1,000 mg Aspirin (Aspirin 81 Mg Tab.Chew) 81 mg PO DAILY [facility] Last Admin: 06/05/25 09:03 Dose: 81 mg Atorvastatin Calcium (Atorvastatin Calcium 20 Mg Tablet) 20 mg PO BEDTIME [facility] Last Admin: 06/05/25 21:09 Dose: 20 mg Benzocaine (Throat Lozenge, Medicated Lozenge) 1 lozenge MUCOUS MEM Q2H PRN PRN Reason: Sore Throat Last Admin: 05/30/25 16:05 Dose: 1 lozenge Chlorpromazine HCl (Chlorpromazine Hcl 25 Mg Tablet) 25 mg PO Q4H PRN PRN Reason: racing thoughts Last Admin: 05/25/25 21:32 Dose: 25 mg Clozapine (Clozapine 100 Mg Tablet) 200 mg PO BEDTIME [facility] Last Admin: 06/05/25 21:09 Dose: 200 mg Empagliflozin (Empagliflozin 25 Mg Tablet) 25 mg PO DAILY [facility] Last Admin: 06/05/25 09:04 Dose: 25 mg Glipizide (Glipizide Xl 10 Mg Tab.Er.24) 10 mg PO DAILY [facility] Last Admin: 06/05/25 09:03 Dose: 10 mg Hydroxyzine HCl (Hydroxyzine Hcl 25 Mg Tablet) 25 mg PO Q6H PRN PRN Reason: mild anxiety Last Admin: 05/27/25 15:54 Dose: 25 mg Lorazepam (Lorazepam 1 Mg Tablet) 1 mg PO QID [facility] Last Admin: 06/05/25 21:11 Dose: Not Given Magnesium Hydroxide (Milk Of Magnesia 30 Ml Oral.Susp) 30 ml PO DAILY PRN PRN Reason: Constipation Last Admin: 06/03/25 14:35 Dose: 30 ml Metformin HCl (Metformin Hcl 1,000 Mg Tablet) 1,000 mg PO BIDWM [facility] Last Admin: 06/05/25 17:11 Dose: 1,000 mg Multivitamins/Vitamin C (Multivitamin Tablet) 1 tab PO DAILY [facility] Last Admin: 06/05/25 09:03 Dose: 1 tab Naloxone HCl (Naloxone Hcl 0.4 Mg/Ml Vial) 0.04 mg IVPUSH Q5M PRN PRN Reason: Excessive sedation or RR < 8 Nicotine (Nicotine 21 Mg Patch.Td24) 21 mg TRANSDERMA DAILY PRN PRN Reason: nicotine craving Nicotine Polacrilex (Nicotine Polacrilex 2 Mg Gum) 2 mg BUCCAL Q2H PRN PRN Reason: Nicotine Cravings Sertraline HCl (Sertraline Hcl 100 Mg Tablet) 100 mg PO DAILY [facility] Last Admin: 06/05/25 09:03 Dose: 100 mg Sodium Chloride (0.9 % Sodium Chloride Flush 10 Ml Syringe) 5 ml IVFLUSH QSHIFT [facility] On Hold: 05/31/25 10:42 Last Admin: 05/31/25 11:02 Dose: Not Given Trazodone HCl (Trazodone Hcl 50 Mg Tablet) 50 mg PO BEDTIME MRX1 PRN PRN Reason: Insomnia Last Admin: 06/05/25 21:09 Dose: 50 mg Vitamin D (Cholecalciferol (Vitamin D3) 25 Mcg Tablet) 125 mcg PO TuSa@0900 [facility] Last Admin: 06/03/25 09:00 Dose: 125 mcg Home Medications ?Medication ?Instructions ?Recorded ?Confirmed ?Last Taken ?Type multivitamin 1 tab PO DAILY 03/01/21 05/19/25 02/28/21 History empagliflozin 25 mg tablet 25 mg PO DAILY 04/29/24 05/19/25 Unknown History (Jardiance) [place] 3 Fish Oil 1,000 mg PO DAILY 05/19/25 05/19/25 Unknown History ascorbic acid (vitamin C) 1,000 mg 1,000 mg PO DAILY 05/19/25 05/19/25 Unknown History tablet (Vitamin C) aspirin 81 mg tablet 81 mg PO DAILY 05/19/25 05/19/25 Unknown History cholecalciferol (vitamin D3) 125 5,000 unit PO MOFR 05/19/25 05/21/25 Unknown History mcg (5,000 unit) tablet lamotrigine 50 mg PO BEDTIME 05/19/25 05/19/25 Unknown History lithium carbonate 300 mg 300 mg PO BEDTIME 05/19/25 05/19/25 Unknown History tablet,extended release (Lithobid) lorazepam 1 mg tablet 1 mg PO Q6H PRN Anxiety 05/19/25 05/19/25 Unknown History Exam Height,Weight and Vital Signs: Height 6 ft 1 in Weight 96.6 kg Last Vital Signs Temp 97 F 06/06/25 08:09 Pulse 118 H 06/06/25 08:09 Resp 17 06/06/25 08:09 BP 150/97 H 06/06/25 08:09 Pulse Ox 94 06/06/25 08:09 O2 Del Method Room Air 06/06/25 08:09 O2 Flow Rate 2 06/04/25 07:55 Pertinent Lab Results Pertinent Lab Results: Laboratory Tests 05/20/25 05/21/25 05/27/25 07:44 14:07 07:59 Absolute Neuts (auto) 7.3 6.3 Sodium 140 Potassium 3.9 Chloride 106 Carbon Dioxide 19 L Anion Gap 19 BUN 19 H Creatinine 1.00 0.96 Estim Creat Clear Calc 96.5 100.5 Estimated GFR > 60 > 60 Random Glucose 120 H Estimat Average Glucose 151 Hemoglobin A1c % 6.9 H Calcium 9.9 Magnesium 2.0 Total Bilirubin 0.7 AST 48 H ALT 80 H Alkaline Phosphatase 91 Total Protein 7.6 Albumin 5.3 H Triglycerides 78 Cholesterol 128 LDL Cholesterol, Calc 58 HDL Cholesterol 55 Vitamin B12 1176 H Folate 16.9 TSH 2.02 Free T4 1.23 06/03/25 07:36 Absolute Neuts (auto) 5.3 Sodium Potassium Chloride Carbon Dioxide Anion Gap BUN Creatinine 1.10 Estim Creat Clear Calc 87.7 Estimated GFR > 60 Random Glucose Estimat Average Glucose Hemoglobin A1c % Calcium Magnesium Total Bilirubin AST ALT Alkaline Phosphatase Total Protein Albumin Triglycerides Cholesterol LDL Cholesterol, Calc HDL Cholesterol Vitamin B12 Folate TSH Free T4 Airway Mallampati Class: III TM Dist: <=3cm Neck ROM: Full Heart: rrr Lungs: cta Assessment and Plan Assessment Anesthesia Assessment: Anesthesia Plan Discussed and Chart Reviewed Final Anesthetic Review Family History of Problems with Anesthesia: No History of Problems with Anesthesia: No NPO: Yes ASA Class: III Final Preanesthetic Review: No Changes in Pt Med Stat, Meds/Allgs Chart Reviewed, Consent Obtained/Reviewed and Anes Risks/Benef Reviewed Patient Risk: Intermediate Procedure Risk: Low Anesthetic Plan Anesthetic Plan: GA and Agree w/ Assess. and Plan Disposition: Standard PACU
--- NOTE | 2025-06-06 09:04 | P.PCN_ITS ---
ECT Procedure Note Diagnosis/Treatment Date of Service: 06/06/25 Diagnosis: Bipolar disorder and Catatonia Previous ECT Date: 06/04/25 Current Treatment Number: 6 Interval Clinical Notes: Feeling better. Affect appropriate. He's hoping to leave next week before [place]. Denies any issues with last tx. Time: Total time managing care of this patient today ____ minutes. ECT Settings Device: THYMATRON DGx Electrode Placement: Bitemporal Program/Pulse Width: 0.50 Energy Percent: 100 Seizure Duration By EEG (in seconds): 46 By Motor Observation (in seconds): 28 Medications Administration General Anesthetic: Etomidate (14) Muscle Relaxant: Succinylcholine (100) Ancillary Medications Anti-emetics: Zofran - Post ECT (30) Cardiovascular Medications: Labetolol (labetolol 5 pre) Miscillaneous Medications: Propofol (30 mg post) Airway Management Airway Management: Bag Mask Ventilation Treatment Recommendations No Changes Recommended: No change Pt Tolerated Procedure w/o Issue: Yes
--- NOTE | 2025-06-06 09:04 | MHC.SHP ---
Pre-Procedural Eval Section A - 24 Hr Update-Section A only Date of Service: 06/06/25 The patient is an INPATIENT: Yes Changes since office visit: No Cold of Flu in the past 2 weeks, No New Medical Problems, No Changes in Medication and No Patient answered all questions The patient has been examined within 24 hours of the surgical procedure. The History & Physical has been completed within 30 days and I have reviewed it.: Yes Section B - Complete if H&P > 30 days Chief Complaint: Schizoaffective Disorder Allergies: Allergies Allergy/AdvReac Type Severity Reaction Status Date / Time No Known Drug Allergies Allergy Unknown Verified 05/19/25 18:25 Plan I have reviewed the history and physical and performed a pertinent physical examination on my patient. No changes have occurred unless specified. Time Spent With Patient Time: Total time managing care of this patient today ____ minutes.
--- NOTE | 2025-06-06 09:52 | P.PNPSI_ITS ---
Subjective Subjective Date of Service: 06/06/25 Reason For Visit: Schizoaffective Disorder Interim History: Met with patient; discussed with team Patient post ECT today. He seemed and looked brighter and said he felt much more clear minded. Denied any delusional ideations and does not think that he is being spite on by patient's and did not remember having thoughts so. No delusions about his kids. Understands he will be here for continued ECT and that he may likely remain over the hol which he accepted. -did have some odd, confused moments, asking about it to get his laptop, asked about a printer, something about something being sent to [facility]... Mental Status Exam Mental Status Exam Narrative: Pt is alert and oriented; behavior is cooperative, friendly and calm; patient is not in distress; dressed in hospital attire with adequate hygiene; mood is described as good and affect congruent, brighter; eye contact appropriate; Speech is normal rate, volume and prosody and not pressured; no psychomotor agitation/retardation present; thought process is organized and goal directed; Thought content is on mostly about treatment; did have some odd comments, asking for his laptop...; remains without delusional ideations; denies any SI/HI. Denies AVH and there is no evidence of perceptual disturbance. Patients insight and judgment improved Diagnostics Vital Signs (24Hr): Vital Signs - 24 hr 06/05/25 20:00 06/05/25 22:30 06/06/25 08:00 Temperature 98.6 F 97.6 F Pulse Rate 109 H 115 H Respiratory Rate 18 20 Blood Pressure 107/66 111/66 Pulse Oximetry 96 98 Oxygen Delivery Method Room Air Room Air Oxygen Flow Rate 06/06/25 08:00 06/06/25 08:09 06/06/25 09:25 Temperature 97.6 F 97 F 98 F Pulse Rate 115 H 118 H 77 Respiratory Rate 17 17 Blood Pressure 111/66 150/97 H 186/100 H Pulse Oximetry 98 94 93 Oxygen Delivery Method Room Air Nasal Cannula Oxygen Flow Rate 2 06/06/25 09:30 06/06/25 09:35 06/06/25 09:40 Temperature Pulse Rate 98 97 97 Respiratory Rate 17 17 18 Blood Pressure 122/80 123/81 149/72 H Pulse Oximetry 94 95 95 Oxygen Delivery Method Nasal Cannula Nasal Cannula Nasal Cannula Oxygen Flow Rate 2 2 2 12/19/25 09:45 Temperature Pulse Rate 100 Respiratory Rate 18 Blood Pressure 131/87 Pulse Oximetry 97 Oxygen Delivery Method Nasal Cannula Oxygen Flow Rate 2 BMI result Body Mass Index 28.1 Labs 06/03/25 07:36 Medications Medications Current Medications Acetaminophen (Acetaminophen 325 Mg Tablet) 650 mg PO Q6H PRN PRN Reason: Headache/Pain, Scale 1-10 Last Admin: 06/06/25 00:38 Dose: 650 mg Al Hydroxide/Mg Hydroxide (Magnesium Hydrox/Alum Hydrox 30 Ml Oral.Susp) 30 ml PO Q6H PRN PRN Reason: Heartburn/Nausea Amantadine HCl (Amantadine Hcl 100 Mg Capsule) 100 mg PO BID [facility] Last Admin: 06/05/25 21:09 Dose: 100 mg Ascorbic Acid (Ascorbic Acid 500 Mg Tablet) 1,000 mg PO DAILY [facility] Last Admin: 06/05/25 09:03 Dose: 1,000 mg Aspirin (Aspirin 81 Mg Tab.Chew) 81 mg PO DAILY [facility] Last Admin: 06/05/25 09:03 Dose: 81 mg Atorvastatin Calcium (Atorvastatin Calcium 20 Mg Tablet) 20 mg PO BEDTIME [facility] Last Admin: 06/05/25 21:09 Dose: 20 mg Benzocaine (Throat Lozenge, Medicated Lozenge) 1 lozenge MUCOUS MEM Q2H PRN PRN Reason: Sore Throat Last Admin: 05/30/25 16:05 Dose: 1 lozenge Chlorpromazine HCl (Chlorpromazine Hcl 25 Mg Tablet) 25 mg PO Q4H PRN PRN Reason: racing thoughts Last Admin: 05/25/25 21:32 Dose: 25 mg Clozapine (Clozapine 100 Mg Tablet) 200 mg PO BEDTIME [facility] Last Admin: 06/05/25 21:09 Dose: 200 mg Empagliflozin (Empagliflozin 25 Mg Tablet) 25 mg PO DAILY [facility] Last Admin: 06/05/25 09:04 Dose: 25 mg Glipizide (Glipizide Xl 10 Mg Tab.Er.24) 10 mg PO DAILY [facility] Last Admin: 06/05/25 09:03 Dose: 10 mg Hydroxyzine HCl (Hydroxyzine Hcl 25 Mg Tablet) 25 mg PO Q6H PRN PRN Reason: mild anxiety Last Admin: 05/27/25 15:54 Dose: 25 mg Lorazepam (Lorazepam 1 Mg Tablet) 1 mg PO QID [facility] Last Admin: 06/05/25 21:11 Dose: Not Given Magnesium Hydroxide (Milk Of Magnesia 30 Ml Oral.Susp) 30 ml PO DAILY PRN PRN Reason: Constipation Last Admin: 06/03/25 14:35 Dose: 30 ml Metformin HCl (Metformin Hcl 1,000 Mg Tablet) 1,000 mg PO BIDWM [facility] Last Admin: 06/05/25 17:11 Dose: 1,000 mg Multivitamins/Vitamin C (Multivitamin Tablet) 1 tab PO DAILY [facility] Last Admin: 06/05/25 09:03 Dose: 1 tab Naloxone HCl (Naloxone Hcl 0.4 Mg/Ml Vial) 0.04 mg IVPUSH Q5M PRN PRN Reason: Excessive sedation or RR < 8 Naloxone HCl (Naloxone Hcl 0.4 Mg/Ml Vial) 0.04 mg IVPUSH Q5M PRN PRN Reason: Excessive sedation or RR < 8 Nicotine (Nicotine 21 Mg Patch.Td24) 21 mg TRANSDERMA DAILY PRN PRN Reason: nicotine craving Nicotine Polacrilex (Nicotine Polacrilex 2 Mg Gum) 2 mg BUCCAL Q2H PRN PRN Reason: Nicotine Cravings Sertraline HCl (Sertraline Hcl 100 Mg Tablet) 100 mg PO DAILY [facility] Last Admin: 06/05/25 09:03 Dose: 100 mg Sodium Chloride (0.9 % Sodium Chloride Flush 10 Ml Syringe) 5 ml IVFLUSH QSHIFT [facility] On Hold: 05/31/25 10:42 Last Admin: 05/31/25 11:02 Dose: Not Given Trazodone HCl (Trazodone Hcl 50 Mg Tablet) 50 mg PO BEDTIME MRX1 PRN PRN Reason: Insomnia Last Admin: 06/05/25 21:09 Dose: 50 mg Vitamin D (Cholecalciferol (Vitamin D3) 25 Mcg Tablet) 125 mcg PO TuSa@0900 [facility] Last Admin: 06/03/25 09:00 Dose: 125 mcg Allergies Allergies Allergy/AdvReac Type Severity Reaction Status Date / Time No Known Drug Allergies Allergy Unknown Verified 05/19/25 18:25 Assessment & Plan Assessment & Plan (1) Bipolar I disorder with catatonia: Status: Acute Code(s): F31.9 - Bipolar disorder, unspecified; F06.1 - Catatonic disorder due to known physiological condition (2) Generalized anxiety disorder: Status: Acute Code(s): F41.1 - Generalized anxiety disorder (3) Type 2 diabetes mellitus: Status: Chronic Code(s): E11.9 - Type 2 diabetes mellitus without complications Plan HPI: Patient is a 54-year-old male with history of bipolar disorder, catatonia who presents as a transfer from hospital on [facility] coming to [facility] for ECT in the face of catatonia following a manic episode. Patient with significant catatonic features having a difficult time talking or moving until automotive service writer started patient on Ativan and amantadine. Patient says that he ended up coming to the hospital because he had paranoid, racing thoughts that people Were out to get me. Patient says he had some issues with his finances, Internet addiction and that people on it took him for a lot of money. He said his family is upset and suggested he go to the hospital. Patient reports that for some amount of that time he was having what sounds like a manic episode, with increased libido, mind racing, blurting out his thoughts, and high energy. Patient said he is still feeling some paranoid thoughts, like when he drove here to the hospital from [facility], thinking people in the other cars with looking at him, maybe people were trying to harm him because .of some of the things I have done.. Though patient could not articulate what those were. He also said that he has been thinking maybe his son and daughter are not who he thinks they are and that maybe his was a plant meaning a set up by some conspiracy when they met. Patient open to reality testing but mostly thinks these things are true. Currently denies AH but says he was having AH days earlier; continues to worry that perhaps people want to harm him; denies any SI or HI. Discussed ECT as treatment and patient agrees, after going over risks/side effects. Also discussed medication and he agrees to continue with Ativan and amantadine (reviewed risks/side-effects) Impression: Patient with both catatonic symptoms and paranoid ideations; catatonia seems to be significantly helped with Ativan and Amantadine which hopefully bridge him until he can get ECT. Holding Zyprexa which he has been taking for years, to mitigate risks of catatonia. Will consider Clozaril 05/21 Patient remains paranoid that people on the unit think [he is] a risk.. For being unsafe... Patient says he is feeling very anxious and is not sure how this happened.. He remains amenable to getting ECT and continuing with both Ativan and amantadine. Picture Enlarger discussed clozapine, risks/side effects and he agrees to start -patient took shower today and attended a group 05/22 Patient says he is feeling more anxious and paranoid today which he thinks is partly due to the nightmares he had last night a people grabbing him. Patient lists his plans for the day which include showering, shaving and attending group. Patient wanted to review medications which was done and he continues to agree with plan including continued titration with clozapine. Talked about lithium which he had not been on before and seems to have been started at [facility] and patient agrees to hold this for now. -Discussed case with Dr. Rosado who agrees that patient's catatonia seems to be stabilized with medications for now but plan remains to proceed with ECT as patient is fragile and highly vulnerable to decompensation (patient has history of severe catatonia). -will continue to titrate clozapine as it can treat delusions, catatonia and act as a mood stabilizer -will hold lithium; only at 300 mg which is subtherapeutic dose can increase risk of side effects during ECT -will continue Lamictal 25 mg for now and assess whether not this is necessary 05/23 continue titrate clozapine; ECT planned for Monday -will titrate Clozapine by 25mg a day 05/24/25 Review with team, review of plan of care, met with pt x 2. Reports difficult sx, racing of thought- chlorpromazine prn ordered temporarily to help with sx mgt. Pt asked to meet later in the day with significant paranoia, I worked with you in [facility], why are you here? Explained and encouraged pt to utilize team and regime to help manage sx. Pt reports I will not hurt myself or anyone else, will anyone hurt me here? Assured pt he was safe on the unit. Thought blocking noted. Plan: Chlorpromazine prn 05/26 Patient continues to report, anxious thoughts saying that my paranoia is kicking in... And patient remains worried that peers on the unit may have bad intentions towards him; patient seems to benefit from reality testing. Discussed ECT and initially patient said he was hesitant and wanted to cancel it because he is afraid something might happen during the procedure however after talking it through patient agreed to continue plan. Will increase Clozaril to 125 mg q.h.s. and likely continue titrating -will discontinue Lamictal as it is an antiepileptic and was just recently started [facility]; lithium remains discontinued was also started there -other patients getting ECT will lower Ativan to 1.5 mg q.i.d. 05/27/25 ect number 1 tolerated pt depressed blunted slowed ect in am cont clozapine 05/29Met with patient; discussed with team Patient says he is feeling a little better today; he still has some paranoia but is able to reason that no one on the unit has hurt him thus far and perhaps he is not really danger from peers. Still has paranoid questions about whether or not his kids her actually his own kids. Agrees with continue treatment plan 05/30 patient remains doing better and feels more clear still with some paranoid ideations which seemed to be waning 05/31 Patient reports that he is overall feeling a little better. Discussed his history with being scammed on the Internet. -patient not sure if he was manic at the time; he says he thinks maybe he was however no one else observed any manic symptoms. -patient's mother explained that in 2022 patient got embroiled in On-line scam, which started as a relationship who got pt to invest in fake [employer]o and patient lost $200,000 (from house sales, penitentiary fund...savings; ran up credit card debt and filed for bankruptcy) -the thing that troubles her is that even after knowing he was scammed first time, it happened again in 2023, and he again was scammed into a fake relationship on-line, with a person eventually asking for money of which he gave the last little bit of it Impression: It is curious that patient was scanned 2 times with the same scam even after the 1st time, meeting with police, filing for bankruptcy. If patient was not having a manic episode of the time, this is troubling for baseline struggle in ability to navigate the community 06/01 ctp; ECT saturday 06/02 patient doing very well today, looks like his regular self, with full range of expression. No paranoid ideations. Agrees to continue with ECT as he remains vulnerable to regression 06/03 patient did regress and is more confused today, with some speech latency and return of paranoid ideations, thinking that peers are spying on him which is making him quite anxious 06/04 Patient doing better today; he reports today is a better day that he is pretty sure that all the patients are simply just patients and that no one is spying on him. Discussed ECT treatments and he agrees to continue. 06/05: Pt reports improvement with ECT. Hoping to return to [facility] next week post discharge; Denies SI,HI, AH, VH; Has allowed application for [facility] services.; CPAP ordered 06/06 Patient post ECT today. He seemed and looked brighter and said he felt much more clear minded. Denied any delusional ideations and does not think that he is being spite on by patient's and did not remember having thoughts so. No delusions about his kids. Understands he will be here for continued ECT and that he may likely remain over the hol which he accepted. -did have some odd, confused moments, asking about it to get his laptop, asked about a printer, something about something being sent to [facility]... -order clozapine level * monitor for confusion. If confused over the weekend consider holding ECT on Monday Plan: CV q15min Continue Amantadine 100mg bid (for catatonia) Ativan to 1 mg qid (for catatonia) Increased clozapine 200mg q.h.s.; will continue to titrate (for psychotic symptoms, catatonia and mood stability) hold zyprexa: Since risks catatonic symptoms Hold lithium: Subtherapeutic and can increase side effects during ECT ECT #5 on 06/04 ECT #6 on 06/06 ECT #7pending 06/06 Type 2 diabetes Continue with metformin, Jardiance, and Glucotrol A1c 6.9 Hyperlipidemia Continue aspirin and Lipitor Lipid panel within normal limits ECT risk stratification Patient without previous problems with anesthesia, has previously undergone ECT RCRI 0 points, no further cardiac workup or treatment indicated at this time based on available information Patient denies any past problems with anesthesia. Outside EKG demonstrates normal sinus rhythm with a QTC of 390, no evidence of ischemic changes. New EKG ordered. Based on stated PMH, HPI, and physical exam, there are no There are no obvious contraindications to the planned procedure. Patient educated on: diagnosis, medication risk/benefits and ECT Informed Consent: understands Reason for continued inpatient stay Substantial Risk for: rapid decompensation Time Spent With Patient Time: Total time managing care of this patient today ____ minutes.
[2025-06-06] MEDS: glipiZIDE XL 10 MG TAB.ER.24 PO (11:23)
[2025-06-06 23:46] LABS: Glucose, Whole Blood 128 mg/dL (60-115)
[2025-06-07] VITALS (8 sets, daily range): BP systolic 115–158; BP diastolic 65–89; PULSE 104–120; RESP 16–20; TEMP 36.6–37.7; O2SAT 94–97
--- NOTE | 2025-06-07 00:03 | PM.EVENT ---
Event Note Date of Service: 06/07/25 Event Note: Consult note : A Rapid response was called 1140 for reported unwitnessed fall We went directly to the patient room, he was laying in his bed (he got himself back) and was confused and altered. unaware of surroundings, date or time. He could not tell how he fell earlier. He had ECT earlier today and received 200 mg of Clozapine around 9 PM. On exam he is alert, directable, disoriented with reactive pupils and clear speech. no focal weakness noticed. No muscle rigiditiy or clonus. Vitals showed mildly sinus Tachycardia (EKG) , stable BP and no fever. DDx: This could be a sedation effect from Clozapine Concerns over NMS vs Anticholenergic toxicity vs Post ECT delerium vs Malignant Catatonia : to check CBC, CMP, CK, Lactic acid EKG showed sinus tachycardia Plan: Check CT head Monitor Vitals Bladder scan Core tempreture recheck Neuro-exam after blood work done Low threshold to transfer to Tele\ICU if blood work concerning HOLD ALL Anti-Psychotic for now Discussed with dr Oneil who will follow on CT scan and blood tests. will keep him on hospitalist follow up list. Time Spent With Patient Time: Total time managing care of this patient today ____ minutes.
[2025-06-07 00:08] LABS: Hematocrit 38.5 % (42.0-52.0); Hemoglobin 12.6 g/dl (14.0-18.0); Imm Gran Abs Auto 0.04 X10*3/uL (0.00-0.03); Imm Gran Pct Auto 0.4 % (0.0-0.4); Lymphocytes Absolute Auto 2.0 X10*3/uL (1.2-4.9); MANUAL DIFF FLAG NO; Mean Corpuscular HGB Conc 32.7 g/dl (31.0-36.0); Mean Corpuscular Hemoglobin 28.4 pg (27.0-33.0); Mean Corpuscular Volume 86.7 fL (80.0-98.0); NRBC Abs Auto 0.000 X10*3/uL (0.0-0.012); NRBC Pct Auto 0.0 /100WBC (0.0-0.2); Platelet Count 222 X10*3/uL (160-400); Red Blood Count 4.44 X10*6/uL (4.60-5.80); White Blood Count 11.2 X10*3/uL (4.8-10.8)
[2025-06-07 00:22] LABS: Alanine Aminotransferase 75 U/L (0-40); Albumin Level 4.3 g/dL (3.5-5.0); Alkaline Phosphatase 146 U/L (39-117); Anion Gap 18 (12-20); Aspartate Amino Transferase 46 U/L (5-37); Blood Urea Nitrogen 22 mg/dL (9-16); Calcium 9.7 mg/dL (8.4-10.2); Carbon Dioxide 22 mmol/L (22-29); Chloride 103 mmol/L (96-108); Creatinine Clr Calc Pharmacy 80.4; Estimated Glomerular Filt Rate 58; Potassium 3.8 mmol/L (3.3-5.1); Sodium 139 mmol/L (135-145); Total Protein 6.3 g/dL (6.5-8.0)
[2025-06-07 00:29] LABS: Troponin-I High Sensitivity 12.4 ng/L (<3.5-35.0)
[2025-06-07 02:26] LABS: Reflex Lactate? Lactic Acid Added
[2025-06-07 03:43] LABS: ~Lactic Acid-LAB USE ONLY 2.1 mmol/L (0.5-2.0)
[2025-06-07] MEDS: Lactated Ringers 500 ML 999 ML IV (04:58)
[2025-06-07 05:12] LABS: Reflex Lactate? 2 Y
[2025-06-07 05:56] LABS: ~Lactic Acid-LAB USE ONLY 1.7 mmol/L (0.5-2.0)
--- NOTE | 2025-06-07 06:52 | PC.NURSE ---
IV removed, Pt Lower forearm IV well was removed at 0650. Pt tolerated well.
--- NOTE | 2025-06-07 07:48 | PC.NURSE ---
Shift Review, Patient had a fall at approx. 2340 Patient was on his left side at side of bed. No immediate injury noted, pt reports no pain or injury upon assessment. Patient jumped into bed states he got dizzy. VS immediately done, and blood sugar. Pt began to get more and more confused, speech became difficult and more slurred. Rapid called, providers at bedside, primary RN gave report on situation. CT, EKG, Labs, BW, CXR, Bladder Scan, VS Q4H and Neuro checks Q2H. Patient 5 min checks and may need 1:1 for safety and observation. Pt was given a bolus (500ml LR) with stable BP's. and tolerated well. IV removed from Left lower arm no s/s of infection/infiltration. Patient has been sleeping though night s/p with slight confusion. Continue to Monitor. Results continue to be pending.
--- NOTE | 2025-06-07 08:37 | P.PNPSI_ITS ---
Subjective Subjective Date of Service: 06/07/25 Reason For Visit: Schizoaffective Disorder Interim History: Met with patient; discussed with team Had a fall last night. Unwitnessed. Says he felt the floor was wavy and fell. He was confused. He is more alert and awake now. Was put on 1:1. Had a head CT which showed a left scalp contusion. Blood work showed increased WBC and increased lactic acid and received IVF. Lactic acid improved. Getting a CXR. Still feeling a little unsteady when gets out of bed today. Organized. Oriented. Mental Status Exam Mental Status Exam Narrative: Pt is alert and oriented; behavior is cooperative, friendly and calm; patient is not in distress; dressed in hospital attire with adequate hygiene; mood is described as good and affect congruent, brighter; eye contact appropriate; Speech is normal rate, volume and prosody and not pressured; no psychomotor agitation/retardation present; thought process is organized and goal directed; Thought content is on mostly about treatment; did have some odd comments, asking for his laptop...; remains without delusional ideations; denies any SI/HI. Denies AVH and there is no evidence of perceptual disturbance. Patients insight and judgment improved Diagnostics Vital Signs (24Hr): Vital Signs - 24 hr 06/06/25 09:25 06/06/25 09:30 06/06/25 09:35 Temperature 98 F Pulse Rate 77 98 97 Respiratory Rate 17 17 17 Blood Pressure 186/100 H 122/80 123/81 Pulse Oximetry 93 94 95 Oxygen Delivery Method Nasal Cannula Nasal Cannula Nasal Cannula Oxygen Flow Rate 2 2 2 06/06/25 09:40 06/06/25 09:45 06/06/25 10:00 Temperature Pulse Rate 97 100 105 H Respiratory Rate 18 18 18 Blood Pressure 149/72 H 131/87 142/85 H Pulse Oximetry 95 97 97 Oxygen Delivery Method Nasal Cannula Nasal Cannula Nasal Cannula Oxygen Flow Rate 2 2 2 06/06/25 10:15 06/06/25 10:30 06/06/25 11:17 Temperature 98 F 97.7 F Pulse Rate 100 104 H 111 H Respiratory Rate 18 18 18 Blood Pressure 146/95 H 131/77 137/91 H Pulse Oximetry 97 94 93 Oxygen Delivery Method Nasal Cannula Room Air Oxygen Flow Rate 2 06/06/25 11:19 06/06/25 19:52 06/06/25 23:40 Temperature 97.7 F 98.8 F 98.4 F Pulse Rate 111 H 121 H 123 H Respiratory Rate 18 20 Blood Pressure 137/91 H 141/61 H 140/75 H Pulse Oximetry 93 95 94 Oxygen Delivery Method Room Air Room Air Room Air Oxygen Flow Rate 06/07/25 01:39 06/07/25 02:52 06/07/25 05:30 Temperature 99.4 F 97.8 F 98.3 F Pulse Rate 118 H 104 H Respiratory Rate 16 Blood Pressure 158/89 H 137/75 Pulse Oximetry 96 94 Oxygen Delivery Method Room Air Room Air Oxygen Flow Rate 06/07/25 06:30 Temperature 98.4 F Pulse Rate 105 H Respiratory Rate Blood Pressure 133/70 Pulse Oximetry 94 Oxygen Delivery Method Room Air Oxygen Flow Rate BMI result Body Mass Index 28.1 Labs 06/07/25 00:02 06/07/25 00:02 Labs: Laboratory Results - last 48 hr 06/06/25 06/07/25 06/07/25 23:41 00:02 00:23 WBC 11.2 H RBC 4.44 L Hgb 12.6 L Hct 38.5 L MCV 86.7 MCH 28.4 MCHC 32.7 RDW 12.8 Plt Count 222 MPV 11.0 Immature Gran % (Auto) 0.4 Neut % (Auto) 68.6 Lymph % (Auto) 17.7 L [place] % (Auto) 9.6 Eos % (Auto) 3.2 Baso % (Auto) 0.5 Lymph # (Auto) 2.0 [place] # (Auto) 1.1 Eos # (Auto) 0.4 Baso # (Auto) 0.1 Abs Immat Gran (auto) 0.04 H Absolute Neuts (auto) 7.7 Absolute Nucleated RBC 0.000 Nucleated RBC % (auto) 0.0 Sodium 139 Potassium 3.8 Chloride 103 Carbon Dioxide 22 Anion Gap 18 BUN 22 H Creatinine 1.30 Estim Creat Clear Calc 80.4 Estimated GFR 58 POC Glucose 128 H Random Glucose 116 H Lactic Acid 3.3 H* Lactic Acid F/U @ 2Hr Lactic Acid F/U @ 4Hr Calcium 9.7 Total Bilirubin 0.6 AST 46 H ALT 75 H Alkaline Phosphatase 146 H Total Creatine Kinase 89 Troponin I High Sens 12.4 Total Protein 6.3 L Albumin 4.3 06/07/25 06/07/25 03:08 05:38 WBC RBC Hgb Hct MCV MCH MCHC RDW Plt Count MPV Immature Gran % (Auto) Neut % (Auto) Lymph % (Auto) [place] % (Auto) Eos % (Auto) Baso % (Auto) Lymph # (Auto) [place] # (Auto) Eos # (Auto) Baso # (Auto) Abs Immat Gran (auto) Absolute Neuts (auto) Absolute Nucleated RBC Nucleated RBC % (auto) Sodium Potassium Chloride Carbon Dioxide Anion Gap BUN Creatinine Estim Creat Clear Calc Estimated GFR POC Glucose Random Glucose Lactic Acid Lactic Acid F/U @ 2Hr 2.1 H* Lactic Acid F/U @ 4Hr 1.7 Calcium Total Bilirubin AST ALT Alkaline Phosphatase Total Creatine Kinase Troponin I High Sens Total Protein Albumin Medications Medications Current Medications Acetaminophen (Acetaminophen 325 Mg Tablet) 650 mg PO Q6H PRN PRN Reason: Headache/Pain, Scale 1-10 Last Admin: 06/06/25 00:38 Dose: 650 mg Al Hydroxide/Mg Hydroxide (Magnesium Hydrox/Alum Hydrox 30 Ml Oral.Susp) 30 ml PO Q6H PRN PRN Reason: Heartburn/Nausea Amantadine HCl (Amantadine Hcl 100 Mg Capsule) 100 mg PO BID [facility] Last Admin: 06/06/25 21:41 Dose: 100 mg Ascorbic Acid (Ascorbic Acid 500 Mg Tablet) 1,000 mg PO DAILY [facility] Last Admin: 06/06/25 11:23 Dose: 1,000 mg Aspirin (Aspirin 81 Mg Tab.Chew) 81 mg PO DAILY [facility] Last Admin: 06/06/25 11:24 Dose: 81 mg Atorvastatin Calcium (Atorvastatin Calcium 20 Mg Tablet) 20 mg PO BEDTIME [facility] Last Admin: 06/06/25 21:41 Dose: 20 mg Benzocaine (Throat Lozenge, Medicated Lozenge) 1 lozenge MUCOUS MEM Q2H PRN PRN Reason: Sore Throat Last Admin: 05/30/25 16:05 Dose: 1 lozenge Chlorpromazine HCl (Chlorpromazine Hcl 25 Mg Tablet) 25 mg PO Q4H PRN PRN Reason: racing thoughts Last Admin: 05/25/25 21:32 Dose: 25 mg Clozapine (Clozapine 100 Mg Tablet) 200 mg PO BEDTIME [facility]ATE[facility] Last Admin: 06/06/25 21:41 Dose: 200 mg Empagliflozin (Empagliflozin 25 Mg Tablet) 25 mg PO DAILY [facility] Last Admin: 06/06/25 11:24 Dose: 25 mg Glipizide (Glipizide Xl 10 Mg Tab.Er.24) 10 mg PO DAILY [facility] Last Admin: 06/06/25 11:23 Dose: 10 mg Hydroxyzine HCl (Hydroxyzine Hcl 25 Mg Tablet) 25 mg PO Q6H PRN PRN Reason: mild anxiety Last Admin: 05/27/25 15:54 Dose: 25 mg Lorazepam (Lorazepam 1 Mg Tablet) 1 mg PO QID [facility] Magnesium Hydroxide (Milk Of Magnesia 30 Ml Oral.Susp) 30 ml PO DAILY PRN PRN Reason: Constipation Last Admin: 06/03/25 14:35 Dose: 30 ml Metformin HCl (Metformin Hcl 1,000 Mg Tablet) 1,000 mg PO BIDWM [facility] Last Admin: 06/06/25 17:22 Dose: 1,000 mg Multivitamins/Vitamin C (Multivitamin Tablet) 1 tab PO DAILY [facility] Last Admin: 06/06/25 11:24 Dose: 1 tab Naloxone HCl (Naloxone Hcl 0.4 Mg/Ml Vial) 0.04 mg IVPUSH Q5M PRN PRN Reason: Excessive sedation or RR < 8 Naloxone HCl (Naloxone Hcl 0.4 Mg/Ml Vial) 0.04 mg IVPUSH Q5M PRN PRN Reason: Excessive sedation or RR < 8 Nicotine (Nicotine 21 Mg Patch.Td24) 21 mg TRANSDERMA DAILY PRN PRN Reason: nicotine craving Nicotine Polacrilex (Nicotine Polacrilex 2 Mg Gum) 2 mg BUCCAL Q2H PRN PRN Reason: Nicotine Cravings Sertraline HCl (Sertraline Hcl 100 Mg Tablet) 100 mg PO DAILY [facility] Last Admin: 06/06/25 11:24 Dose: 100 mg Sodium Chloride (0.9 % Sodium Chloride Flush 10 Ml Syringe) 5 ml IVFLUSH QSHIFT [facility] On Hold: 05/31/25 10:42 Last Admin: 05/31/25 11:02 Dose: Not Given Trazodone HCl (Trazodone Hcl 50 Mg Tablet) 50 mg PO BEDTIME MRX1 PRN PRN Reason: Insomnia Last Admin: 06/05/25 21:09 Dose: 50 mg Vitamin D (Cholecalciferol (Vitamin D3) 25 Mcg Tablet) 125 mcg PO TuSa@0900 [facility] Last Admin: 06/03/25 09:00 Dose: 125 mcg Allergies Allergies Allergy/AdvReac Type Severity Reaction Status Date / Time No Known Drug Allergies Allergy Unknown Verified 05/19/25 18:25 Assessment & Plan Assessment & Plan (1) Bipolar I disorder with catatonia: Status: Acute Code(s): F31.9 - Bipolar disorder, unspecified; F06.1 - Catatonic disorder due to known physiological condition (2) Generalized anxiety disorder: Status: Acute Code(s): F41.1 - Generalized anxiety disorder (3) Type 2 diabetes mellitus: Status: Chronic Code(s): E11.9 - Type 2 diabetes mellitus without complications Plan HPI: Patient is a 54-year-old male with history of bipolar disorder, catatonia who presents as a transfer from hospital on [facility] coming to [facility] for ECT in the face of catatonia following a manic episode. Patient with significant catatonic features having a difficult time talking or moving until law writer started patient on Ativan and amantadine. Patient says that he ended up coming to the hospital because he had paranoid, racing thoughts that people Were out to get me. Patient says he had some issues with his finances, Internet addiction and that people on it took him for a lot of money. He said his family is upset and suggested he go to the hospital. Patient reports that for some amount of that time he was having what sounds like a manic episode, with increased libido, mind racing, blurting out his thoughts, and high energy. Patient said he is still feeling some paranoid thoughts, like when he drove here to the hospital from [facility], thinking people in the other cars with looking at him, maybe people were trying to harm him because .of some of the things I have done.. Though patient could not articulate what those were. He also said that he has been thinking maybe his son and daughter are not who he thinks they are and that maybe his was a plant meaning a set up by some conspiracy when they met. Patient open to reality testing but mostly thinks these things are true. Currently denies AH but says he was having AH days earlier; continues to worry that perhaps people want to harm him; denies any SI or HI. Discussed ECT as treatment and patient agrees, after going over risks/side effects. Also discussed medication and he agrees to continue with Ativan and amantadine (reviewed risks/side-effects) Impression: Patient with both catatonic symptoms and paranoid ideations; catatonia seems to be significantly helped with Ativan and Amantadine which hopefully bridge him until he can get ECT. Holding Zyprexa which he has been taking for years, to mitigate risks of catatonia. Will consider Clozaril 05/21 Patient remains paranoid that people on the unit think [he is] a risk.. For being unsafe... Patient says he is feeling very anxious and is not sure how this happened.. He remains amenable to getting ECT and continuing with both Ativan and amantadine. Paper Inspector discussed clozapine, risks/side effects and he agrees to start -patient took shower today and attended a group 05/22 Patient says he is feeling more anxious and paranoid today which he thinks is partly due to the nightmares he had last night a people grabbing him. Patient lists his plans for the day which include showering, shaving and attending group. Patient wanted to review medications which was done and he continues to agree with plan including continued titration with clozapine. Talked about lithium which he had not been on before and seems to have been started at [facility] and patient agrees to hold this for now. -Discussed case with Dr. Rosado who agrees that patient's catatonia seems to be stabilized with medications for now but plan remains to proceed with ECT as patient is fragile and highly vulnerable to decompensation (patient has history of severe catatonia). -will continue to titrate clozapine as it can treat delusions, catatonia and act as a mood stabilizer -will hold lithium; only at 300 mg which is subtherapeutic dose can increase risk of side effects during ECT -will continue Lamictal 25 mg for now and assess whether not this is necessary 05/23 continue titrate clozapine; ECT planned for Monday -will titrate Clozapine by 25mg a day 05/24/25 Review with team, review of plan of care, met with pt x 2. Reports difficult sx, racing of thought- chlorpromazine prn ordered temporarily to help with sx mgt. Pt asked to meet later in the day with significant paranoia, I worked with you in [facility], why are you here? Explained and encouraged pt to utilize team and regime to help manage sx. Pt reports I will not hurt myself or anyone else, will anyone hurt me here? Assured pt he was safe on the unit. Thought blocking noted. Plan: Chlorpromazine prn 05/26 Patient continues to report, anxious thoughts saying that my paranoia is kicking in... And patient remains worried that peers on the unit may have bad intentions towards him; patient seems to benefit from reality testing. Discussed ECT and initially patient said he was hesitant and wanted to cancel it because he is afraid something might happen during the procedure however after talking it through patient agreed to continue plan. Will increase Clozaril to 125 mg q.h.s. and likely continue titrating -will discontinue Lamictal as it is an antiepileptic and was just recently started [facility]; lithium remains discontinued was also started there -other patients getting ECT will lower Ativan to 1.5 mg q.i.d. 05/27/25 ect number 1 tolerated pt depressed blunted slowed ect in am cont clozapine 05/29Met with patient; discussed with team Patient says he is feeling a little better today; he still has some paranoia but is able to reason that no one on the unit has hurt him thus far and perhaps he is not really danger from peers. Still has paranoid questions about whether or not his kids her actually his own kids. Agrees with continue treatment plan 05/30 patient remains doing better and feels more clear still with some paranoid ideations which seemed to be waning 05/31 Patient reports that he is overall feeling a little better. Discussed his history with being scammed on the Internet. -patient not sure if he was manic at the time; he says he thinks maybe he was however no one else observed any manic symptoms. -patient's mother explained that in 2022 patient got embroiled in On-line scam, which started as a relationship who got pt to invest in fake [employer] and patient lost $200,000 (from house sales, alf fund...savings; ran up credit card debt and filed for bankruptcy) -the thing that troubles her is that even after knowing he was scammed first time, it happened again in 2023, and he again was scammed into a fake relationship on-line, with a person eventually asking for money of which he gave the last little bit of it Impression: It is curious that patient was scanned 2 times with the same scam even after the 1st time, meeting with police, filing for bankruptcy. If patient was not having a manic episode of the time, this is troubling for baseline struggle in ability to navigate the community 06/01 ctp; ECT saturday 06/02 patient doing very well today, looks like his regular self, with full range of expression. No paranoid ideations. Agrees to continue with ECT as he remains vulnerable to regression 06/03 patient did regress and is more confused today, with some speech latency and return of paranoid ideations, thinking that peers are spying on him which is making him quite anxious 06/04 Patient doing better today; he reports today is a better day that he is pretty sure that all the patients are simply just patients and that no one is spying on him. Discussed ECT treatments and he agrees to continue. 06/05: Pt reports improvement with ECT. Hoping to return to [facility] next week post discharge; Denies SI,HI, AH, VH; Has allowed application for [facility] services.; CPAP ordered 06/06 Patient post ECT today. He seemed and looked brighter and said he felt much more clear minded. Denied any delusional ideations and does not think that he is being spite on by patient's and did not remember having thoughts so. No delusions about his kids. Understands he will be here for continued ECT and that he may likely remain over the [place] holiday which he accepted. -did have some odd, confused moments, asking about it to get his laptop, asked about a printer, something about something being sent to [facility]... -order clozapine level * monitor for confusion. If confused over the weekend consider holding ECT on Thursday 06/07: Decrease Ativan to 0.5 mg given confusion and fall last night. Continue other management and treatment plan as is. Plan: CV q15min Continue Amantadine 100mg bid (for catatonia) Ativan to 1 mg qid (for catatonia) Increased clozapine 200mg q.h.s.; will continue to titrate (for psychotic symptoms, catatonia and mood stability) hold zyprexa: Since risks catatonic symptoms Hold lithium: Subtherapeutic and can increase side effects during ECT ECT #5 on 06/04 ECT #6 on 06/06 ECT #7pending 06/06 Type 2 diabetes Continue with metformin, Jardiance, and Glucotrol A1c 6.9 Hyperlipidemia Continue aspirin and Lipitor Lipid panel within normal limits ECT risk stratification Patient without previous problems with anesthesia, has previously undergone ECT RCRI 0 points, no further cardiac workup or treatment indicated at this time based on available information Patient denies any past problems with anesthesia. Outside EKG demonstrates normal sinus rhythm with a QTC of 390, no evidence of ischemic changes. New EKG ordered. Based on stated PMH, HPI, and physical exam, there are no There are no obvious contraindications to the planned procedure. Patient educated on: diagnosis, medication risk/benefits and ECT Informed Consent: understands Reason for continued inpatient stay Substantial Risk for: rapid decompensation Time Spent With Patient Time: Total time managing care of this patient today ____ minutes.
[2025-06-07 09:53] LABS: Chlamydia pneumoniae PCR Not Detected (Not Detect.); Coronavirus 229E PCR Not Detected (Not Detect.); Coronavirus HKU1 PCR Not Detected (Not Detect.); Coronavirus NL63 PCR Not Detected (Not Detect.); Coronavirus OC43 PCR Not Detected (Not Detect.); RSV PCR Not Detected (Not Detect.); Rhino/Enterovirus PCR Detected (Not Detect.); SARS-CoV-2 PCR Not Detected (Not Detect.)
[2025-06-07] MEDS: glipiZIDE XL 10 MG TAB.ER.24 PO (09:58)
[2025-06-07 10:18] LABS: Influenza A H1 PCR Not Detected (Not Detect.); Influenza A H1-2009 PCR Not Detected (Not Detect.); Influenza A H3 PCR Not Detected (Not Detect.)
[2025-06-08] VITALS: BP 125/70; PULSE 110; RESP 17; TEMP 37.3; O2SAT 96
[2025-06-08 04:00] VITALS: BP 120/78; PULSE 97; RESP 16; TEMP 37; O2SAT 97
[2025-06-08 08:00] VITALS: BP 112/69; PULSE 128; RESP 18; TEMP 37.2; O2SAT 94
[2025-06-08] MEDS: glipiZIDE XL 10 MG TAB.ER.24 PO (08:56)
[2025-06-08 09:01] VITALS: PULSE 116
--- NOTE | 2025-06-08 09:06 | P.PNPSI_ITS ---
Subjective Subjective Date of Service: 06/08/25 Reason For Visit: Schizoaffective Disorder Interim History: Met with patient; discussed with team Had a better night last night. Hasn't been feeling the floor moving as it was the other night. No increase in anxiety with decrease in Ativan. Alert and awake. Eating and sleeping well. Continues on 1:1 for fall risk. Organized and oriented. Mental Status Exam Mental Status Exam Narrative: Pt is alert and oriented; behavior is cooperative, friendly and calm; patient is not in distress; dressed in hospital attire with adequate hygiene; mood is described as good and affect congruent, brighter; eye contact appropriate; Speech is normal rate, volume and prosody and not pressured; no psychomotor agitation/retardation present; thought process is organized and goal directed; Thought content is on mostly about treatment; did have some odd comments, asking for his laptop...; remains without delusional ideations; denies any SI/HI. Denies AVH and there is no evidence of perceptual disturbance. Patients insight and judgment improved Diagnostics Vital Signs (24Hr): Vital Signs - 24 hr 06/07/25 12:00 06/07/25 16:00 06/07/25 20:00 Temperature 98.8 F 99.9 F 99.4 F Pulse Rate 111 H 112 H 120 H Respiratory Rate 20 20 16 Blood Pressure 130/83 135/79 115/65 Pulse Oximetry 96 97 95 Oxygen Delivery Method Room Air Room Air Room Air 06/07/25 20:00 06/08/25 00:00 06/08/25 04:00 Temperature 99.4 F 99.1 F 98.6 F Pulse Rate 120 H 110 H 97 Respiratory Rate 16 17 16 Blood Pressure 115/65 125/70 120/78 Pulse Oximetry 95 96 97 Oxygen Delivery Method Room Air Room Air Room Air 06/08/25 08:00 06/08/25 09:01 Temperature 98.9 F Pulse Rate 128 H 116 H Respiratory Rate 18 Blood Pressure 112/69 Pulse Oximetry 94 Oxygen Delivery Method Room Air BMI result Body Mass Index 28.1 Labs 06/07/25 00:02 06/07/25 00:02 Labs: Laboratory Results - last 48 hr 06/06/25 06/07/25 06/07/25 23:41 00:02 00:23 WBC 11.2 H RBC 4.44 L Hgb 12.6 L Hct 38.5 L MCV 86.7 MCH 28.4 MCHC 32.7 RDW 12.8 Plt Count 222 MPV 11.0 Immature Gran % (Auto) 0.4 Neut % (Auto) 68.6 Lymph % (Auto) 17.7 L [place] % (Auto) 9.6 Eos % (Auto) 3.2 Baso % (Auto) 0.5 Lymph # (Auto) 2.0 [place] # (Auto) 1.1 Eos # (Auto) 0.4 Baso # (Auto) 0.1 Abs Immat Gran (auto) 0.04 H Absolute Neuts (auto) 7.7 Absolute Nucleated RBC 0.000 Nucleated RBC % (auto) 0.0 Sodium 139 Potassium 3.8 Chloride 103 Carbon Dioxide 22 Anion Gap 18 BUN 22 H Creatinine 1.30 Estim Creat Clear Calc 80.4 Estimated GFR 58 POC Glucose 128 H Random Glucose 116 H Lactic Acid 3.3 H* Lactic Acid F/U @ 2Hr Lactic Acid F/U @ 4Hr Calcium 9.7 Total Bilirubin 0.6 AST 46 H ALT 75 H Alkaline Phosphatase 146 H Total Creatine Kinase 89 Troponin I High Sens 12.4 Total Protein 6.3 L Albumin 4.3 Respiratory Panel Rasheed Adenovirus (Rapid PCR) B.pert (TEM-PCR) B.parapertussis DNA PCR C. pneumoniae DNA (PCR) Coronavirus OC43 (PCR) Coronavirus HKU1 (PCR) Coronavirus 229E (PCR) Coronavirus NL63 (PCR) Human Metapneumovir PCR Influenza A (RT-PCR) Influenza A (H1) PCR Influ A (H1/09) PCR Influenza A (H3) PCR Influenza B (RT-PCR) M. pneumoniae (PCR) Parainfluenza 1 (PCR) Parainfluenza 2 (PCR) Parainfluenza 3 (PCR) Parainfluenza 4 (PCR) RSV (PCR) Entero/Rhino (PCR) SARS-CoV-2 RNA (RT-PCR) 06/07/25 06/07/25 06/07/25 01:13 03:08 05:38 WBC RBC Hgb Hct MCV MCH MCHC RDW Plt Count MPV Immature Gran % (Auto) Neut % (Auto) Lymph % (Auto) [place] % (Auto) Eos % (Auto) Baso % (Auto) Lymph # (Auto) [place] # (Auto) Eos # (Auto) Baso # (Auto) Abs Immat Gran (auto) Absolute Neuts (auto) Absolute Nucleated RBC Nucleated RBC % (auto) Sodium Potassium Chloride Carbon Dioxide Anion Gap BUN Creatinine Estim Creat Clear Calc Estimated GFR POC Glucose Random Glucose Lactic Acid Lactic Acid F/U @ 2Hr 2.1 H* Lactic Acid F/U @ 4Hr 1.7 Calcium Total Bilirubin AST ALT Alkaline Phosphatase Total Creatine Kinase Troponin I High Sens Total Protein Albumin Respiratory Panel Rasheed See Note Adenovirus (Rapid PCR) Not Detected B.pert (TEM-PCR) Not Detected B.parapertussis DNA PCR Not Detected C. pneumoniae DNA (PCR) Not Detected Coronavirus OC43 (PCR) Not Detected Coronavirus HKU1 (PCR) Not Detected Coronavirus 229E (PCR) Not Detected Coronavirus NL63 (PCR) Not Detected Human Metapneumovir PCR Not Detected Influenza A (RT-PCR) Not Detected Influenza A (H1) PCR Not Detected Influ A (H1/09) PCR Not Detected Influenza A (H3) PCR Not Detected Influenza B (RT-PCR) Not Detected M. pneumoniae (PCR) Not Detected Parainfluenza 1 (PCR) Not Detected Parainfluenza 2 (PCR) Not Detected Parainfluenza 3 (PCR) Not Detected Parainfluenza 4 (PCR) Not Detected RSV (PCR) Not Detected Entero/Rhino (PCR) Detected A SARS-CoV-2 RNA (RT-PCR) Not Detected Medications Medications Current Medications Acetaminophen (Acetaminophen 325 Mg Tablet) 650 mg PO Q6H PRN PRN Reason: Headache/Pain, Scale 1-10 Last Admin: 06/06/25 00:38 Dose: 650 mg Al Hydroxide/Mg Hydroxide (Magnesium Hydrox/Alum Hydrox 30 Ml Oral.Susp) 30 ml PO Q6H PRN PRN Reason: Heartburn/Nausea Amantadine HCl (Amantadine Hcl 100 Mg Capsule) 100 mg PO BID [facility] Last Admin: 06/08/25 08:57 Dose: 100 mg Ascorbic Acid (Ascorbic Acid 500 Mg Tablet) 1,000 mg PO DAILY [facility] Last Admin: 06/08/25 08:57 Dose: 1,000 mg Aspirin (Aspirin 81 Mg Tab.Chew) 81 mg PO DAILY [facility] Last Admin: 06/08/25 08:57 Dose: 81 mg Atorvastatin Calcium (Atorvastatin Calcium 20 Mg Tablet) 20 mg PO BEDTIME [facility] Last Admin: 06/07/25 22:17 Dose: 20 mg Benzocaine (Throat Lozenge, Medicated Lozenge) 1 lozenge MUCOUS MEM Q2H PRN PRN Reason: Sore Throat Last Admin: 05/30/25 16:05 Dose: 1 lozenge Chlorpromazine HCl (Chlorpromazine Hcl 25 Mg Tablet) 25 mg PO Q4H PRN PRN Reason: racing thoughts Last Admin: 05/25/25 21:32 Dose: 25 mg Clozapine (Clozapine 100 Mg Tablet) 200 mg PO BEDTIME [facility] Last Admin: 06/07/25 22:17 Dose: 200 mg Empagliflozin (Empagliflozin 25 Mg Tablet) 25 mg PO DAILY [facility] Last Admin: 06/08/25 08:57 Dose: 25 mg Glipizide (Glipizide Xl 10 Mg Tab.Er.24) 10 mg PO DAILY [facility] Last Admin: 06/08/25 08:56 Dose: 10 mg Hydroxyzine HCl (Hydroxyzine Hcl 25 Mg Tablet) 25 mg PO Q6H PRN PRN Reason: mild anxiety Last Admin: 05/27/25 15:54 Dose: 25 mg Lorazepam (Lorazepam 0.5 Mg Tablet) 0.5 mg PO QID [facility] Last Admin: 06/08/25 08:57 Dose: 0.5 mg Magnesium Hydroxide (Milk Of Magnesia 30 Ml Oral.Susp) 30 ml PO DAILY PRN PRN Reason: Constipation Last Admin: 06/03/25 14:35 Dose: 30 ml Metformin HCl (Metformin Hcl 1,000 Mg Tablet) 1,000 mg PO BIDWM [facility] Last Admin: 06/08/25 08:56 Dose: 1,000 mg Multivitamins/Vitamin C (Multivitamin Tablet) 1 tab PO DAILY [facility] Last Admin: 06/08/25 08:57 Dose: 1 tab Naloxone HCl (Naloxone Hcl 0.4 Mg/Ml Vial) 0.04 mg IVPUSH Q5M PRN PRN Reason: Excessive sedation or RR < 8 Naloxone HCl (Naloxone Hcl 0.4 Mg/Ml Vial) 0.04 mg IVPUSH Q5M PRN PRN Reason: Excessive sedation or RR < 8 Nicotine (Nicotine 21 Mg Patch.Td24) 21 mg TRANSDERMA DAILY PRN PRN Reason: nicotine craving Nicotine Polacrilex (Nicotine Polacrilex 2 Mg Gum) 2 mg BUCCAL Q2H PRN PRN Reason: Nicotine Cravings Sertraline HCl (Sertraline Hcl 100 Mg Tablet) 100 mg PO DAILY [facility] Last Admin: 06/08/25 08:56 Dose: 100 mg Sodium Chloride (0.9 % Sodium Chloride Flush 10 Ml Syringe) 5 ml IVFLUSH QSHIFT [facility] On Hold: 05/31/25 10:42 Last Admin: 05/31/25 11:02 Dose: Not Given Trazodone HCl (Trazodone Hcl 50 Mg Tablet) 50 mg PO BEDTIME MRX1 PRN PRN Reason: Insomnia Last Admin: 06/05/25 21:09 Dose: 50 mg Vitamin D (Cholecalciferol (Vitamin D3) 25 Mcg Tablet) 125 mcg PO TuSa@0900 [facility] Last Admin: 06/07/25 10:11 Dose: 125 mcg Allergies Allergies Allergy/AdvReac Type Severity Reaction Status Date / Time No Known Drug Allergies Allergy Unknown Verified 05/19/25 18:25 Assessment & Plan Assessment & Plan (1) Bipolar I disorder with catatonia: Status: Acute Code(s): F31.9 - Bipolar disorder, unspecified; F06.1 - Catatonic disorder due to known physiological condition (2) Generalized anxiety disorder: Status: Acute Code(s): F41.1 - Generalized anxiety disorder (3) Type 2 diabetes mellitus: Status: Chronic Code(s): E11.9 - Type 2 diabetes mellitus without complications Plan HPI: Patient is a 54-year-old male with history of bipolar disorder, catatonia who presents as a transfer from hospital on [facility] coming to [facility] for ECT in the face of catatonia following a manic episode. Patient with significant catatonic features having a difficult time talking or moving until administrative underwriter started patient on Ativan and amantadine. Patient says that he ended up coming to the hospital because he had paranoid, racing thoughts that people Were out to get me. Patient says he had some issues with his finances, Internet addiction and that people on it took him for a lot of money. He said his family is upset and suggested he go to the hospital. Patient reports that for some amount of that time he was having what sounds like a manic episode, with increased libido, mind racing, blurting out his thoughts, and high energy. Patient said he is still feeling some paranoid thoughts, like when he drove here to the hospital from [facility], thinking people in the other cars with looking at him, maybe people were trying to harm him because .of some of the things I have done.. Though patient could not articulate what those were. He also said that he has been thinking maybe his son and daughter are not who he thinks they are and that maybe his was a plant meaning a set up by some conspiracy when they met. Patient open to reality testing but mostly thinks these things are true. Currently denies AH but says he was having AH days earlier; continues to worry that perhaps people want to harm him; denies any SI or HI. Discussed ECT as treatment and patient agrees, after going over risks/side effects. Also discussed medication and he agrees to continue with Ativan and amantadine (reviewed risks/side-effects) Impression: Patient with both catatonic symptoms and paranoid ideations; catatonia seems to be significantly helped with Ativan and Amantadine which hopefully bridge him until he can get ECT. Holding Zyprexa which he has been taking for years, to mitigate risks of catatonia. Will consider Clozaril 05/21 Patient remains paranoid that people on the unit think [he is] a risk.. For being unsafe... Patient says he is feeling very anxious and is not sure how this happened.. He remains amenable to getting ECT and continuing with both Ativan and amantadine. Needle Loom Setter discussed clozapine, risks/side effects and he agrees to start -patient took shower today and attended a group 05/22 Patient says he is feeling more anxious and paranoid today which he thinks is partly due to the nightmares he had last night a people grabbing him. Patient lists his plans for the day which include showering, shaving and attending group. Patient wanted to review medications which was done and he continues to agree with plan including continued titration with clozapine. Talked about lithium which he had not been on before and seems to have been started at [facility] and patient agrees to hold this for now. -Discussed case with Dr. Rosado who agrees that patient's catatonia seems to be stabilized with medications for now but plan remains to proceed with ECT as patient is fragile and highly vulnerable to decompensation (patient has history of severe catatonia). -will continue to titrate clozapine as it can treat delusions, catatonia and act as a mood stabilizer -will hold lithium; only at 300 mg which is subtherapeutic dose can increase risk of side effects during ECT -will continue Lamictal 25 mg for now and assess whether not this is necessary 05/23 continue titrate clozapine; ECT planned for Monday -will titrate Clozapine by 25mg a day 05/24/25 Review with team, review of plan of care, met with pt x 2. Reports difficult sx, racing of thought- chlorpromazine prn ordered temporarily to help with sx mgt. Pt asked to meet later in the day with significant paranoia, I worked with you in [facility], why are you here? Explained and encouraged pt to utilize team and regime to help manage sx. Pt reports I will not hurt myself or anyone else, will anyone hurt me here? Assured pt he was safe on the unit. Thought blocking noted. Plan: Chlorpromazine prn 05/26 Patient continues to report, anxious thoughts saying that my paranoia is kicking in... And patient remains worried that peers on the unit may have bad intentions towards him; patient seems to benefit from reality testing. Discussed ECT and initially patient said he was hesitant and wanted to cancel it because he is afraid something might happen during the procedure however after talking it through patient agreed to continue plan. Will increase Clozaril to 125 mg q.h.s. and likely continue titrating -will discontinue Lamictal as it is an antiepileptic and was just recently started [facility]; lithium remains discontinued was also started there -other patients getting ECT will lower Ativan to 1.5 mg q.i.d. 05/27/25 ect number 1 tolerated pt depressed blunted slowed ect in am cont clozapine 05/29Met with patient; discussed with team Patient says he is feeling a little better today; he still has some paranoia but is able to reason that no one on the unit has hurt him thus far and perhaps he is not really danger from peers. Still has paranoid questions about whether or not his kids her actually his own kids. Agrees with continue treatment plan 05/30 patient remains doing better and feels more clear still with some paranoid ideations which seemed to be waning 05/31 Patient reports that he is overall feeling a little better. Discussed his history with being scammed on the Internet. -patient not sure if he was manic at the time; he says he thinks maybe he was however no one else observed any manic symptoms. -patient's mother explained that in 2022 patient got embroiled in On-line scam, which started as a relationship who got pt to invest in fake Sovio and patient lost $200,000 (from house sales, detention fund...savings; ran up credit card debt and filed for bankruptcy) -the thing that troubles her is that even after knowing he was scammed first time, it happened again in 2023, and he again was scammed into a fake relationship on-line, with a person eventually asking for money of which he gave the last little bit of it Impression: It is curious that patient was scanned 2 times with the same scam even after the 1st time, meeting with police, filing for bankruptcy. If patient was not having a manic episode of the time, this is troubling for baseline struggle in ability to navigate the community 06/01 ctp; ECT saturday 06/02 patient doing very well today, looks like his regular self, with full range of expression. No paranoid ideations. Agrees to continue with ECT as he remains vulnerable to regression 06/03 patient did regress and is more confused today, with some speech latency and return of paranoid ideations, thinking that peers are spying on him which is making him quite anxious 06/04 Patient doing better today; he reports today is a better day that he is pretty sure that all the patients are simply just patients and that no one is spying on him. Discussed ECT treatments and he agrees to continue. 06/05: Pt reports improvement with ECT. Hoping to return to [facility] next week post discharge; Denies SI,HI, AH, VH; Has allowed application for [facility] services.; CPAP ordered 06/06 Patient post ECT today. He seemed and looked brighter and said he felt much more clear minded. Denied any delusional ideations and does not think that he is being spite on by patient's and did not remember having thoughts so. No delusions about his kids. Understands he will be here for continued ECT and that he may likely remain over the [place] holiday which he accepted. -did have some odd, confused moments, asking about it to get his laptop, asked about a printer, something about something being sent to [facility]... -order clozapine level * monitor for confusion. If confused over the weekend consider holding ECT on Thursday 06/07: Decrease Ativan to 0.5 mg given confusion and fall last night. Continue other management and treatment plan as is. 06/08: Consider 5 min checks as his dizziness improved after he is observed walking and he looks steady. Continue current management and treatment plan. Plan: CV q15min Continue Amantadine 100mg bid (for catatonia) Ativan to 1 mg qid (for catatonia) Increased clozapine 200mg q.h.s.; will continue to titrate (for psychotic symptoms, catatonia and mood stability) hold zyprexa: Since risks catatonic symptoms Hold lithium: Subtherapeutic and can increase side effects during ECT ECT #5 on 06/04 ECT #6 on 06/06 ECT #7pending 06/06 Type 2 diabetes Continue with metformin, Jardiance, and Glucotrol A1c 6.9 Hyperlipidemia Continue aspirin and Lipitor Lipid panel within normal limits ECT risk stratification Patient without previous problems with anesthesia, has previously undergone ECT RCRI 0 points, no further cardiac workup or treatment indicated at this time based on available information Patient denies any past problems with anesthesia. Outside EKG demonstrates normal sinus rhythm with a QTC of 390, no evidence of ischemic changes. New EKG ordered. Based on stated PMH, HPI, and physical exam, there are no There are no obvious contraindications to the planned procedure. Patient educated on: diagnosis, medication risk/benefits and ECT Informed Consent: understands Reason for continued inpatient stay Substantial Risk for: rapid decompensation Time Spent With Patient Time: Total time managing care of this patient today ____ minutes.
[2025-06-08 22:00] VITALS: RESP 18
[2025-06-09] VITALS (10 sets, daily range): BP systolic 104–130; BP diastolic 63–89; PULSE 93–110; RESP 15–22; TEMP 36.3–36.8; O2SAT 92–97
--- NOTE | 2025-06-09 06:32 | HO.ANESPROP2 ---
HPI - Anesthesia Eval Consult details Narrative: for ECT PMFSH Active Problems Active Problems: All Active Problems MDD (major depressive disorder) (Acute) CKD (chronic kidney disease) (Acute) Non-insulin dependent type 2 diabetes mellitus (Acute) Major depressive disorder, recurrent, in full remission with mood-congruent psychotic features (Acute) Generalized anxiety disorder (Acute) Major depressive disorder, recurrent episode, in partial remission with anxious distress (Acute) Bipolar affective, depress, sev w/ psych (Acute) Bipolar disorder (Acute) Type 2 diabetes mellitus (Chronic) Catatonic excitement (Acute) Bipolar I disorder with catatonia (Acute) Bipolar 2 disorder, major depressive episode (Acute) Social anxiety disorder (Acute) Bipolar 1 disorder, mixed, full remission (Acute) Past Medical History Medical History MDD (major depressive disorder) Non-insulin dependent type 2 diabetes mellitus Major depressive disorder, recurrent, in full remission with mood-congruent psychotic features Generalized anxiety disorder Inguinal hernia Sleep apnea Hyperlipemia Social anxiety disorder Bipolar 1 disorder Depression Diabetes Family History Family history of problems with anesthesia: No Surgical History Surgical History H/O hernia repair History of Problems with Anesthesia: No Social History Social History Household Members: Children Housing: House Do you presently have visiting nurse or other home services: No Patient Tobacco Use Status: Never used Tobacco service: No Sexual orientation: Straight/Heterosexual Meds Allergies Allergy/AdvReac Type Severity Reaction Status Date / Time No Known Drug Allergies Allergy Unknown Verified 05/19/25 18:25 Active Medications: Current Medications Acetaminophen (Acetaminophen 325 Mg Tablet) 650 mg PO Q6H PRN PRN Reason: Headache/Pain, Scale 1-10 Last Admin: 06/06/25 00:38 Dose: 650 mg Al Hydroxide/Mg Hydroxide (Magnesium Hydrox/Alum Hydrox 30 Ml Oral.Susp) 30 ml PO Q6H PRN PRN Reason: Heartburn/Nausea Amantadine HCl (Amantadine Hcl 100 Mg Capsule) 100 mg PO BID [facility] Last Admin: 06/08/25 21:15 Dose: 100 mg Ascorbic Acid (Ascorbic Acid 500 Mg Tablet) 1,000 mg PO DAILY [facility] Last Admin: 06/08/25 08:57 Dose: 1,000 mg Aspirin (Aspirin 81 Mg Tab.Chew) 81 mg PO DAILY [facility] Last Admin: 06/08/25 08:57 Dose: 81 mg Atorvastatin Calcium (Atorvastatin Calcium 20 Mg Tablet) 20 mg PO BEDTIME [facility] Last Admin: 06/08/25 21:15 Dose: 20 mg Benzocaine (Throat Lozenge, Medicated Lozenge) 1 lozenge MUCOUS MEM Q2H PRN PRN Reason: Sore Throat Last Admin: 05/30/25 16:05 Dose: 1 lozenge Chlorpromazine HCl (Chlorpromazine Hcl 25 Mg Tablet) 25 mg PO Q4H PRN PRN Reason: racing thoughts Last Admin: 05/25/25 21:32 Dose: 25 mg Clozapine (Clozapine 100 Mg Tablet) 200 mg PO BEDTIME [facility] Last Admin: 06/08/25 21:16 Dose: 200 mg Empagliflozin (Empagliflozin 25 Mg Tablet) 25 mg PO DAILY [facility] Last Admin: 06/08/25 08:57 Dose: 25 mg Glipizide (Glipizide Xl 10 Mg Tab.Er.24) 10 mg PO DAILY [facility] Last Admin: 06/08/25 08:56 Dose: 10 mg Hydroxyzine HCl (Hydroxyzine Hcl 25 Mg Tablet) 25 mg PO Q6H PRN PRN Reason: mild anxiety Last Admin: 05/27/25 15:54 Dose: 25 mg Lorazepam (Lorazepam 0.5 Mg Tablet) 0.5 mg PO QID [facility] Last Admin: 06/08/25 21:16 Dose: Not Given Magnesium Hydroxide (Milk Of Magnesia 30 Ml Oral.Susp) 30 ml PO DAILY PRN PRN Reason: Constipation Last Admin: 06/03/25 14:35 Dose: 30 ml Metformin HCl (Metformin Hcl 1,000 Mg Tablet) 1,000 mg PO BIDWM [facility] Last Admin: 06/08/25 16:25 Dose: 1,000 mg Multivitamins/Vitamin C (Multivitamin Tablet) 1 tab PO DAILY [facility] Last Admin: 06/08/25 08:57 Dose: 1 tab Naloxone HCl (Naloxone Hcl 0.4 Mg/Ml Vial) 0.04 mg IVPUSH Q5M PRN PRN Reason: Excessive sedation or RR < 8 Naloxone HCl (Naloxone Hcl 0.4 Mg/Ml Vial) 0.04 mg IVPUSH Q5M PRN PRN Reason: Excessive sedation or RR < 8 Nicotine (Nicotine 21 Mg Patch.Td24) 21 mg TRANSDERMA DAILY PRN PRN Reason: nicotine craving Nicotine Polacrilex (Nicotine Polacrilex 2 Mg Gum) 2 mg BUCCAL Q2H PRN PRN Reason: Nicotine Cravings Sertraline HCl (Sertraline Hcl 100 Mg Tablet) 100 mg PO DAILY [facility] Last Admin: 06/08/25 08:56 Dose: 100 mg Sodium Chloride (0.9 % Sodium Chloride Flush 10 Ml Syringe) 5 ml IVFLUSH QSHIFT [facility] On Hold: 05/31/25 10:42 Last Admin: 05/31/25 11:02 Dose: Not Given Trazodone HCl (Trazodone Hcl 50 Mg Tablet) 50 mg PO BEDTIME MRX1 PRN PRN Reason: Insomnia Last Admin: 06/05/25 21:09 Dose: 50 mg Vitamin D (Cholecalciferol (Vitamin D3) 25 Mcg Tablet) 125 mcg PO TuSa@0900 [facility] Last Admin: 06/07/25 10:11 Dose: 125 mcg Home Medications ?Medication ?Instructions ?Recorded ?Confirmed ?Last Taken ?Type multivitamin 1 tab PO DAILY 03/01/21 05/19/25 02/28/21 History empagliflozin 25 mg tablet 25 mg PO DAILY 04/29/24 05/19/25 Unknown History (Jardiance) [place] 3 Fish Oil 1,000 mg PO DAILY 05/19/25 05/19/25 Unknown History ascorbic acid (vitamin C) 1,000 mg 1,000 mg PO DAILY 05/19/25 05/19/25 Unknown History tablet (Vitamin C) aspirin 81 mg tablet 81 mg PO DAILY 05/19/25 05/19/25 Unknown History cholecalciferol (vitamin D3) 125 5,000 unit PO MOFR 05/19/25 05/21/25 Unknown History mcg (5,000 unit) tablet lamotrigine 50 mg PO BEDTIME 05/19/25 05/19/25 Unknown History lithium carbonate 300 mg 300 mg PO BEDTIME 05/19/25 05/19/25 Unknown History tablet,extended release (Lithobid) lorazepam 1 mg tablet 1 mg PO Q6H PRN Anxiety 05/19/25 05/19/25 Unknown History Exam Height,Weight and Vital Signs: Height 6 ft 1 in Weight 96.6 kg Last Vital Signs Temp 97.6 F 06/09/25 00:00 Pulse 100 06/09/25 00:00 Resp 18 06/09/25 00:00 BP 130/85 06/09/25 00:00 Pulse Ox 97 06/09/25 00:00 O2 Del Method Room Air 06/09/25 00:00 O2 Flow Rate 2 06/06/25 10:15 Pertinent Lab Results Pertinent Lab Results: Laboratory Tests 05/20/25 05/21/25 05/27/25 07:44 14:07 07:59 WBC RBC Hgb Hct MCV MCH MCHC RDW Plt Count MPV Immature Gran % (Auto) Neut % (Auto) Lymph % (Auto) Stokes % (Auto) Eos % (Auto) Baso % (Auto) Lymph # (Auto) Stokes # (Auto) Eos # (Auto) Baso # (Auto) Abs Immat Gran (auto) Absolute Neuts (auto) 7.3 6.3 Absolute Nucleated RBC Nucleated RBC % (auto) Sodium 140 Potassium 3.9 Chloride 106 Carbon Dioxide 19 L Anion Gap 19 BUN 19 H Creatinine 1.00 0.96 Estim Creat Clear Calc 96.5 100.5 Estimated GFR > 60 > 60 POC Glucose Random Glucose 120 H Estimat Average Glucose 151 Hemoglobin A1c % 6.9 H Lactic Acid Lactic Acid F/U @ 2Hr Lactic Acid F/U @ 4Hr Calcium 9.9 Magnesium 2.0 Total Bilirubin 0.7 AST 48 H ALT 80 H Alkaline Phosphatase 91 Total Creatine Kinase Troponin I High Sens Total Protein 7.6 Albumin 5.3 H Triglycerides 78 Cholesterol 128 LDL Cholesterol, Calc 58 HDL Cholesterol 55 Vitamin B12 1176 H Folate 16.9 TSH 2.02 Free T4 1.23 Respiratory Panel Rasheed Adenovirus (Rapid PCR) B.pert (TEM-PCR) B.parapertussis DNA PCR C. pneumoniae DNA (PCR) Coronavirus OC43 (PCR) Coronavirus HKU1 (PCR) Coronavirus 229E (PCR) Coronavirus NL63 (PCR) Human Metapneumovir PCR Influenza A (RT-PCR) Influenza A (H1) PCR Influ A (H1/09) PCR Influenza A (H3) PCR Influenza B (RT-PCR) M. pneumoniae (PCR) Parainfluenza 1 (PCR) Parainfluenza 2 (PCR) Parainfluenza 3 (PCR) Parainfluenza 4 (PCR) RSV (PCR) Entero/Rhino (PCR) SARS-CoV-2 RNA (RT-PCR) 06/03/25 06/06/25 06/07/25 07:36 23:41 00:02 WBC 11.2 H RBC 4.44 L Hgb 12.6 L Hct 38.5 L MCV 86.7 MCH 28.4 MCHC 32.7 RDW 12.8 Plt Count 222 MPV 11.0 Immature Gran % (Auto) 0.4 Neut % (Auto) 68.6 Lymph % (Auto) 17.7 L Stokes % (Auto) 9.6 Eos % (Auto) 3.2 Baso % (Auto) 0.5 Lymph # (Auto) 2.0 Stokes # (Auto) 1.1 Eos # (Auto) 0.4 Baso # (Auto) 0.1 Abs Immat Gran (auto) 0.04 H Absolute Neuts (auto) 5.3 7.7 Absolute Nucleated RBC 0.000 Nucleated RBC % (auto) 0.0 Sodium 139 Potassium 3.8 Chloride 103 Carbon Dioxide 22 Anion Gap 18 BUN 22 H Creatinine 1.10 1.30 Estim Creat Clear Calc 87.7 80.4 Estimated GFR > 60 58 POC Glucose 128 H Random Glucose 116 H Estimat Average Glucose Hemoglobin A1c % Lactic Acid Lactic Acid F/U @ 2Hr Lactic Acid F/U @ 4Hr Calcium 9.7 Magnesium Total Bilirubin 0.6 AST 46 H ALT 75 H Alkaline Phosphatase 146 H Total Creatine Kinase 89 Troponin I High Sens 12.4 Total Protein 6.3 L Albumin 4.3 Triglycerides Cholesterol LDL Cholesterol, Calc HDL Cholesterol Vitamin B12 Folate TSH Free T4 Respiratory Panel Rasheed Adenovirus (Rapid PCR) B.pert (TEM-PCR) B.parapertussis DNA PCR C. pneumoniae DNA (PCR) Coronavirus OC43 (PCR) Coronavirus HKU1 (PCR) Coronavirus 229E (PCR) Coronavirus NL63 (PCR) Human Metapneumovir PCR Influenza A (RT-PCR) Influenza A (H1) PCR Influ A (H1/09) PCR Influenza A (H3) PCR Influenza B (RT-PCR) M. pneumoniae (PCR) Parainfluenza 1 (PCR) Parainfluenza 2 (PCR) Parainfluenza 3 (PCR) Parainfluenza 4 (PCR) RSV (PCR) Entero/Rhino (PCR) SARS-CoV-2 RNA (RT-PCR) 06/07/25 06/07/25 06/07/25 00:23 01:13 03:08 WBC RBC Hgb Hct MCV MCH MCHC RDW Plt Count MPV Immature Gran % (Auto) Neut % (Auto) Lymph % (Auto) Stokes % (Auto) Eos % (Auto) Baso % (Auto) Lymph # (Auto) Stokes # (Auto) Eos # (Auto) Baso # (Auto) Abs Immat Gran (auto) Absolute Neuts (auto) Absolute Nucleated RBC Nucleated RBC % (auto) Sodium Potassium Chloride Carbon Dioxide Anion Gap BUN Creatinine Estim Creat Clear Calc Estimated GFR POC Glucose Random Glucose Estimat Average Glucose Hemoglobin A1c % Lactic Acid 3.3 H* Lactic Acid F/U @ 2Hr 2.1 H* Lactic Acid F/U @ 4Hr Calcium Magnesium Total Bilirubin AST ALT Alkaline Phosphatase Total Creatine Kinase Troponin I High Sens Total Protein Albumin Triglycerides Cholesterol LDL Cholesterol, Calc HDL Cholesterol Vitamin B12 Folate TSH Free T4 Respiratory Panel Rasheed See Note Adenovirus (Rapid PCR) Not Detected B.pert (TEM-PCR) Not Detected B.parapertussis DNA PCR Not Detected C. pneumoniae DNA (PCR) Not Detected Coronavirus OC43 (PCR) Not Detected Coronavirus HKU1 (PCR) Not Detected Coronavirus 229E (PCR) Not Detected Coronavirus NL63 (PCR) Not Detected Human Metapneumovir PCR Not Detected Influenza A (RT-PCR) Not Detected Influenza A (H1) PCR Not Detected Influ A (H1/09) PCR Not Detected Influenza A (H3) PCR Not Detected Influenza B (RT-PCR) Not Detected M. pneumoniae (PCR) Not Detected Parainfluenza 1 (PCR) Not Detected Parainfluenza 2 (PCR) Not Detected Parainfluenza 3 (PCR) Not Detected Parainfluenza 4 (PCR) Not Detected RSV (PCR) Not Detected Entero/Rhino (PCR) Detected A SARS-CoV-2 RNA (RT-PCR) Not Detected 06/07/25 05:38 WBC RBC Hgb Hct MCV MCH MCHC RDW Plt Count MPV Immature Gran % (Auto) Neut % (Auto) Lymph % (Auto) Stokes % (Auto) Eos % (Auto) Baso % (Auto) Lymph # (Auto) Stokes # (Auto) Eos # (Auto) Baso # (Auto) Abs Immat Gran (auto) Absolute Neuts (auto) Absolute Nucleated RBC Nucleated RBC % (auto) Sodium Potassium Chloride Carbon Dioxide Anion Gap BUN Creatinine Estim Creat Clear Calc Estimated GFR POC Glucose Random Glucose Estimat Average Glucose Hemoglobin A1c % Lactic Acid Lactic Acid F/U @ 2Hr Lactic Acid F/U @ 4Hr 1.7 Calcium Magnesium Total Bilirubin AST ALT Alkaline Phosphatase Total Creatine Kinase Troponin I High Sens Total Protein Albumin Triglycerides Cholesterol LDL Cholesterol, Calc HDL Cholesterol Vitamin B12 Folate TSH Free T4 Respiratory Panel Rasheed Adenovirus (Rapid PCR) B.pert (TEM-PCR) B.parapertussis DNA PCR C. pneumoniae DNA (PCR) Coronavirus OC43 (PCR) Coronavirus HKU1 (PCR) Coronavirus 229E (PCR) Coronavirus NL63 (PCR) Human Metapneumovir PCR Influenza A (RT-PCR) Influenza A (H1) PCR Influ A () PCR Influenza A (H3) PCR Influenza B (RT-PCR) M. pneumoniae (PCR) Parainfluenza 1 (PCR) Parainfluenza 2 (PCR) Parainfluenza 3 (PCR) Parainfluenza 4 (PCR) RSV (PCR) Entero/Rhino (PCR) SARS-CoV-2 RNA (RT-PCR) Airway Mallampati Class: II TM Dist: <=3cm Neck ROM: Full Loose/Missing/Broken Teeth: No Heart: ok Lungs: ok Assessment and Plan Assessment Anesthesia Assessment: Anesthesia Plan Discussed and Chart Reviewed Final Anesthetic Review Family History of Problems with Anesthesia: No History of Problems with Anesthesia: No NPO: Yes ASA Class: III Final Preanesthetic Review: No Changes in Pt Med Stat, Meds/Allgs Chart Reviewed, Consent Obtained/Reviewed and Anes Risks/Benef Reviewed Patient Risk: Intermediate Procedure Risk: Intermediate Anesthetic Plan Anesthetic Plan: GA and Agree w/ Assess. and Plan Disposition: Standard PACU
--- NOTE | 2025-06-09 07:13 | MHC.SHP ---
Pre-Procedural Eval Section A - 24 Hr Update-Section A only Date of Service: 06/09/25 Changes since office visit: Yes Cold of Flu in the past 2 weeks, Yes New Medical Problems, Yes Changes in Medication and Yes Patient answered all questions Section B - Complete if H&P > 30 days Chief Complaint: Schizoaffective Disorder Allergies: Allergies Allergy/AdvReac Type Severity Reaction Status Date / Time No Known Drug Allergies Allergy Unknown Verified 05/19/25 18:25 Plan I have reviewed the history and physical and performed a pertinent physical examination on my patient. No changes have occurred unless specified. Time Spent With Patient Time: Total time managing care of this patient today ____ minutes.
--- NOTE | 2025-06-09 07:14 | HO.ECTPROC ---
ECT Procedure Note Diagnosis/Treatment Date of Service: 06/12/25 Diagnosis: Major Depressive Disorder and Catatonia Previous ECT Date: 06/06/25 Current Treatment Number: 7 Treatment: Series Interval Clinical Notes: pt has been doing better no c/o side effects tolerating ect Time: Total time managing care of this patient today _30___ minutes. ECT Settings Device: THYMATRON DGx Electrode Placement: Bitemporal Program/Pulse Width: 0.50 Energy Percent: 100 Seizure Duration By EEG (in seconds): 48 Medications Administration General Anesthetic: Etomidate (14) Muscle Relaxant: Succinylcholine (100) Ancillary Medications Anti-emetics: Zofran - Post ECT (30) Cardiovascular Medications: Labetolol (labetolol 5 pre) Miscillaneous Medications: Propofol (30 mg post) Airway Management Airway Management: Bag Mask Ventilation Treatment Recommendations No Changes Recommended: No change Pt Tolerated Procedure w/o Issue: Yes
[2025-06-09] MEDS: glipiZIDE XL 10 MG TAB.ER.24 PO (09:51)
--- NOTE | 2025-06-09 21:01 | P.PNPSI_ITS ---
Subjective Subjective Date of Service: 06/09/25 Reason For Visit: Schizoaffective Disorder Subjective Notes: Conditional Voluntary Interim History: Patient tolerating ECT some residual depressive symptoms improved mentation tolerating clozapine Medication Compliance: Yes Mental Status Exam Mental Status Exam Narrative: Patient is calm and cooperative able to discuss the circumstances of what boredom to the hospital and led him to irrationally give away his money. Patient's mood somewhat flattened future oriented no psychotic symptoms impulse control adequate Diagnostics Vital Signs (24Hr): Vital Signs - 24 hr 06/08/25 22:00 06/09/25 00:00 06/09/25 06:46 Temperature 97.6 F 97.4 F Pulse Rate 100 110 H Respiratory Rate 18 18 22 H Blood Pressure 130/85 114/87 Pulse Oximetry 97 94 Oxygen Delivery Method Room Air Room Air 06/09/25 07:32 06/09/25 07:35 06/09/25 07:40 Temperature 98.2 F Pulse Rate 98 99 100 Respiratory Rate 15 21 H 21 H Blood Pressure 128/89 125/82 123/83 Pulse Oximetry 92 94 94 Oxygen Delivery Method Room Air Room Air Room Air 06/09/25 07:45 06/09/25 08:00 06/09/25 08:15 Temperature Pulse Rate 100 94 93 Respiratory Rate 18 18 18 Blood Pressure 126/86 120/80 117/75 Pulse Oximetry 94 94 94 Oxygen Delivery Method Room Air Room Air Room Air 06/09/25 08:30 06/09/25 09:19 Temperature 98.1 F Pulse Rate 104 H 103 H Respiratory Rate 18 18 Blood Pressure 104/69 118/63 Pulse Oximetry 94 93 Oxygen Delivery Method Room Air BMI result Body Mass Index 28.1 Labs 06/07/25 00:02 06/07/25 00:02 Medications Medications Current Medications Acetaminophen (Acetaminophen 325 Mg Tablet) 650 mg PO Q6H PRN PRN Reason: Headache/Pain, Scale 1-10 Last Admin: 06/06/25 00:38 Dose: 650 mg Al Hydroxide/Mg Hydroxide (Magnesium Hydrox/Alum Hydrox 30 Ml Oral.Susp) 30 ml PO Q6H PRN PRN Reason: Heartburn/Nausea Amantadine HCl (Amantadine Hcl 100 Mg Capsule) 100 mg PO BID [facility] Last Admin: 06/09/25 09:52 Dose: 100 mg Ascorbic Acid (Ascorbic Acid 500 Mg Tablet) 1,000 mg PO DAILY [facility] Last Admin: 06/09/25 09:52 Dose: 1,000 mg Aspirin (Aspirin 81 Mg Tab.Chew) 81 mg PO DAILY [facility] Last Admin: 06/09/25 09:52 Dose: 81 mg Atorvastatin Calcium (Atorvastatin Calcium 20 Mg Tablet) 20 mg PO BEDTIME [facility] Last Admin: 06/08/25 21:15 Dose: 20 mg Benzocaine (Throat Lozenge, Medicated Lozenge) 1 lozenge MUCOUS MEM Q2H PRN PRN Reason: Sore Throat Last Admin: 05/30/25 16:05 Dose: 1 lozenge Chlorpromazine HCl (Chlorpromazine Hcl 25 Mg Tablet) 25 mg PO Q4H PRN PRN Reason: racing thoughts Last Admin: 05/25/25 21:32 Dose: 25 mg Clozapine (Clozapine 100 Mg Tablet) 200 mg PO BEDTIME [facility] Last Admin: 06/08/25 21:16 Dose: 200 mg Empagliflozin (Empagliflozin 25 Mg Tablet) 25 mg PO DAILY [facility] Last Admin: 06/09/25 09:52 Dose: 25 mg Glipizide (Glipizide Xl 10 Mg Tab.Er.24) 10 mg PO DAILY [facility] Last Admin: 06/09/25 09:51 Dose: 10 mg Hydroxyzine HCl (Hydroxyzine Hcl 25 Mg Tablet) 25 mg PO Q6H PRN PRN Reason: mild anxiety Last Admin: 05/27/25 15:54 Dose: 25 mg Lorazepam (Lorazepam 0.5 Mg Tablet) 0.5 mg PO QID [facility] Last Admin: 06/09/25 17:28 Dose: 0.5 mg Magnesium Hydroxide (Milk Of Magnesia 30 Ml Oral.Susp) 30 ml PO DAILY PRN PRN Reason: Constipation Last Admin: 06/03/25 14:35 Dose: 30 ml Metformin HCl (Metformin Hcl 1,000 Mg Tablet) 1,000 mg PO BIDWM [facility] Last Admin: 06/09/25 17:29 Dose: 1,000 mg Multivitamins/Vitamin C (Multivitamin Tablet) 1 tab PO DAILY [facility] Last Admin: 06/09/25 09:52 Dose: 1 tab Naloxone HCl (Naloxone Hcl 0.4 Mg/Ml Vial) 0.04 mg IVPUSH Q5M PRN PRN Reason: Excessive sedation or RR < 8 Nicotine (Nicotine 21 Mg Patch.Td24) 21 mg TRANSDERMA DAILY PRN PRN Reason: nicotine craving Nicotine Polacrilex (Nicotine Polacrilex 2 Mg Gum) 2 mg BUCCAL Q2H PRN PRN Reason: Nicotine Cravings Sertraline HCl (Sertraline Hcl 100 Mg Tablet) 100 mg PO DAILY [facility] Last Admin: 06/09/25 09:52 Dose: 100 mg Sodium Chloride (0.9 % Sodium Chloride Flush 10 Ml Syringe) 5 ml IVFLUSH QSHIFT [facility] On Hold: 05/31/25 10:42 Last Admin: 05/31/25 11:02 Dose: Not Given Trazodone HCl (Trazodone Hcl 50 Mg Tablet) 50 mg PO BEDTIME MRX1 PRN PRN Reason: Insomnia Last Admin: 06/05/25 21:09 Dose: 50 mg Vitamin D (Cholecalciferol (Vitamin D3) 25 Mcg Tablet) 125 mcg PO TuSa@0900 [facility] Last Admin: 06/07/25 10:11 Dose: 125 mcg Allergies Allergies Allergy/AdvReac Type Severity Reaction Status Date / Time No Known Drug Allergies Allergy Unknown Verified 05/19/25 18:25 Assessment & Plan Assessment & Plan (1) Bipolar I disorder with catatonia: Status: Acute Code(s): F31.9 - Bipolar disorder, unspecified; F06.1 - Catatonic disorder due to known physiological condition (2) Generalized anxiety disorder: Status: Acute Code(s): F41.1 - Generalized anxiety disorder (3) Type 2 diabetes mellitus: Status: Chronic Code(s): E11.9 - Type 2 diabetes mellitus without complications Plan HPI: Patient is a 54-year-old male with history of bipolar disorder, catatonia who presents as a transfer from hospital on [facility] coming to [facility] [place] for E[place] in the face of catatonia following a manic episode. Patient with significant catatonic features having a difficult time talking or moving until fiction writer started patient on Ativan and amantadine. Patient says that he ended up coming to the hospital because he had paranoid, racing thoughts that people Were out to get me. Patient says he had some issues with his finances, Internet addiction and that people on it took him for a lot of money. He said his family is upset and suggested he go to the hospital. Patient reports that for some amount of that time he was having what sounds like a manic episode, with increased libido, mind racing, blurting out his thoughts, and high energy. Patient said he is still feeling some paranoid thoughts, like when he drove here to the hospital from [facility], thinking people in the other cars with looking at him, maybe people were trying to harm him because .of some of the things I have done.. Though patient could not articulate what those were. He also said that he has been thinking maybe his son and daughter are not who he thinks they are and that maybe his was a plant meaning a set up by some conspiracy when they met. Patient open to reality testing but mostly thinks these things are true. Currently denies AH but says he was having AH days earlier; continues to worry that perhaps people want to harm him; denies any SI or HI. Discussed ECT as treatment and patient agrees, after going over risks/side effects. Also discussed medication and he agrees to continue with Ativan and amantadine (reviewed risks/side-effects) Impression: Patient with both catatonic symptoms and paranoid ideations; catatonia seems to be significantly helped with Ativan and Amantadine which hopefully bridge him until he can get ECT. Holding Zyprexa which he has been taking for years, to mitigate risks of catatonia. Will consider Clozaril 05/21 Patient remains paranoid that people on the unit think [he is] a risk.. For being unsafe... Patient says he is feeling very anxious and is not sure how this happened.. He remains amenable to getting ECT and continuing with both Ativan and amantadine. Nuclear Control Operator discussed clozapine, risks/side effects and he agrees to start -patient took shower today and attended a group 05/22 Patient says he is feeling more anxious and paranoid today which he thinks is partly due to the nightmares he had last night a people grabbing him. Patient lists his plans for the day which include showering, shaving and attending group. Patient wanted to review medications which was done and he continues to agree with plan including continued titration with clozapine. Talked about lithium which he had not been on before and seems to have been started at [facility] and patient agrees to hold this for now. -Discussed case with Dr. Rosado who agrees that patient's catatonia seems to be stabilized with medications for now but plan remains to proceed with ECT as patient is fragile and highly vulnerable to decompensation (patient has history of severe catatonia). -will continue to titrate clozapine as it can treat delusions, catatonia and act as a mood stabilizer -will hold lithium; only at 300 mg which is subtherapeutic dose can increase risk of side effects during ECT -will continue Lamictal 25 mg for now and assess whether not this is necessary 05/23 continue titrate clozapine; ECT planned for Monday -will titrate Clozapine by 25mg a day 05/24/25 Review with team, review of plan of care, met with pt x 2. Reports difficult sx, racing of thought- chlorpromazine prn ordered temporarily to help with sx mgt. Pt asked to meet later in the day with significant paranoia, I worked with you in [facility], why are you here? Explained and encouraged pt to utilize team and regime to help manage sx. Pt reports I will not hurt myself or anyone else, will anyone hurt me here? Assured pt he was safe on the unit. Thought blocking noted. Plan: Chlorpromazine prn 05/26 Patient continues to report, anxious thoughts saying that my paranoia is kicking in... And patient remains worried that peers on the unit may have bad intentions towards him; patient seems to benefit from reality testing. Discussed ECT and initially patient said he was hesitant and wanted to cancel it because he is afraid something might happen during the procedure however after talking it through patient agreed to continue plan. Will increase Clozaril to 125 mg q.h.s. and likely continue titrating -will discontinue Lamictal as it is an antiepileptic and was just recently started [facility]; lithium remains discontinued was also started there -other patients getting ECT will lower Ativan to 1.5 mg q.i.d. 05/27/25 ect number 1 tolerated pt depressed blunted slowed ect in am cont clozapine 05/29Met with patient; discussed with team Patient says he is feeling a little better today; he still has some paranoia but is able to reason that no one on the unit has hurt him thus far and perhaps he is not really danger from peers. Still has paranoid questions about whether or not his kids her actually his own kids. Agrees with continue treatment plan 05/30 patient remains doing better and feels more clear still with some paranoid ideations which seemed to be waning 05/31 Patient reports that he is overall feeling a little better. Discussed his history with being scammed on the Internet. -patient not sure if he was manic at the time; he says he thinks maybe he was however no one else observed any manic symptoms. -patient's mother explained that in 2022 patient got embroiled in On-line scam, which started as a relationship who got pt to invest in fake [employer] and patient lost $200,000 (from house sales, assisted fund...savings; ran up credit card debt and filed for bankruptcy) -the thing that troubles her is that even after knowing he was scammed first time, it happened again in 2023, and he again was scammed into a fake relationship on-line, with a person eventually asking for money of which he gave the last little bit of it Impression: It is curious that patient was scanned 2 times with the same scam even after the 1st time, meeting with police, filing for bankruptcy. If patient was not having a manic episode of the time, this is troubling for baseline struggle in ability to navigate the community 06/01 ctp; ECT saturday 06/02 patient doing very well today, looks like his regular self, with full range of expression. No paranoid ideations. Agrees to continue with ECT as he remains vulnerable to regression 06/03 patient did regress and is more confused today, with some speech latency and return of paranoid ideations, thinking that peers are spying on him which is making him quite anxious 06/04 Patient doing better today; he reports today is a better day that he is pretty sure that all the patients are simply just patients and that no one is spying on him. Discussed ECT treatments and he agrees to continue. 06/05: Pt reports improvement with ECT. Hoping to return to [facility] [place] next week post discharge; Denies SI,HI, AH, VH; Has allowed application for [facility] services.; CPAP ordered 06/06 Patient post ECT today. He seemed and looked brighter and said he felt much more clear minded. Denied any delusional ideations and does not think that he is being spite on by patient's and did not remember having thoughts so. No delusions about his kids. Understands he will be here for continued ECT and that he may likely remain over the holiday which he accepted. -did have some odd, confused moments, asking about it to get his laptop, asked about a printer, something about something being sent to [facility]... -order clozapine level * monitor for confusion. If confused over the weekend consider holding ECT on Thursday 06/07: Decrease Ativan to 0.5 mg given confusion and fall last night. Continue other management and treatment plan as is. 06/08: Consider 5 min checks as his dizziness improved after he is observed walking and he looks steady. Continue current management and treatment plan. 06/09/2025 Patient tolerating current regimen significantly improved patient seems stable to be discharged 06/11 Continue clozapine monitor ANC continue sertraline and lorazepam patient will be referred to PHP on the [facility] Plan: CV q15min Continue Amantadine 100mg bid (for catatonia) Ativan to 1 mg qid (for catatonia) Increased clozapine 200mg q.h.s.; will continue to titrate (for psychotic symptoms, catatonia and mood stability) hold zyprexa: Since risks catatonic symptoms Hold lithium: Subtherapeutic and can increase side effects during ECT ECT #5 on 06/04 ECT #6 on 06/06 ECT #7pending 06/06 Type 2 diabetes Continue with metformin, Jardiance, and Glucotrol A1c 6.9 Hyperlipidemia Continue aspirin and Lipitor Lipid panel within normal limits ECT risk stratification Patient without previous problems with anesthesia, has previously undergone ECT RCRI 0 points, no further cardiac workup or treatment indicated at this time based on available information Patient denies any past problems with anesthesia. Outside EKG demonstrates normal sinus rhythm with a QTC of 390, no evidence of ischemic changes. New EKG ordered. Based on stated PMH, HPI, and physical exam, there are no There are no obvious contraindications to the planned procedure. Reason for continued inpatient stay Substantial Risk for: inability to function and rapid decompensation Time Spent With Patient Time: Total time managing care of this patient today ____ minutes.
[2025-06-10] VITALS: BP 110/75; PULSE 113; RESP 16; TEMP 36.4; O2SAT 96
[2025-06-10 08:00] VITALS: BP 127/78; PULSE 109; RESP 20; TEMP 36.4; O2SAT 98
[2025-06-10 09:27] LABS: Neut%MD 47.8 %; WBCANC 5.4 X10*3/uL
--- NOTE | 2025-06-10 09:51 | P.PNPSI_ITS ---
Subjective Subjective Date of Service: 06/10/25 Reason For Visit: Schizoaffective Disorder Subjective Notes: Conditional Voluntary Interim History: Patient less withdrawn taylor affect doing better feeling more like himself. Feels accepted by his family and supported Medication Compliance: Yes Side effects from medications: No Mental Status Exam Mental Status Exam Narrative: Patient calm cooperative good eye contact. Casually dressed reasonably groomed thoughts are clear goal-directed. Mood okay somewhat constricted future oriented no psychotic symptoms denies current paranoia feeling that anyone is plotting against him. No thought blocking able to process issues regarding what happened over the past few months prior to admission. Understands need for honesty in his treatment with his providers no SI or HI Diagnostics Vital Signs (24Hr): Vital Signs - 24 hr 06/10/25 00:00 06/10/25 08:00 Temperature 97.6 F 97.5 F Pulse Rate 113 H 109 H Respiratory Rate 16 20 Blood Pressure 110/75 127/78 Pulse Oximetry 96 98 Oxygen Delivery Method Room Air Room Air BMI result Body Mass Index 28.1 Labs 06/07/25 00:02 06/07/25 00:02 Labs: Laboratory Results - last 48 hr 06/10/25 08:32 Absolute Neuts (auto) 2.6 Medications Medications Current Medications Acetaminophen (Acetaminophen 325 Mg Tablet) 650 mg PO Q6H PRN PRN Reason: Headache/Pain, Scale 1-10 Last Admin: 06/06/25 00:38 Dose: 650 mg Al Hydroxide/Mg Hydroxide (Magnesium Hydrox/Alum Hydrox 30 Ml Oral.Susp) 30 ml PO Q6H PRN PRN Reason: Heartburn/Nausea Amantadine HCl (Amantadine Hcl 100 Mg Capsule) 100 mg PO BID [facility] Last Admin: 06/09/25 22:45 Dose: 100 mg Ascorbic Acid (Ascorbic Acid 500 Mg Tablet) 1,000 mg PO DAILY [facility] Last Admin: 06/09/25 09:52 Dose: 1,000 mg Aspirin (Aspirin 81 Mg Tab.Chew) 81 mg PO DAILY [facility] Last Admin: 06/09/25 09:52 Dose: 81 mg Atorvastatin Calcium (Atorvastatin Calcium 20 Mg Tablet) 20 mg PO BEDTIME [facility] Last Admin: 06/09/25 22:45 Dose: 20 mg Benzocaine (Throat Lozenge, Medicated Lozenge) 1 lozenge MUCOUS MEM Q2H PRN PRN Reason: Sore Throat Last Admin: 05/30/25 16:05 Dose: 1 lozenge Chlorpromazine HCl (Chlorpromazine Hcl 25 Mg Tablet) 25 mg PO Q4H PRN PRN Reason: racing thoughts Last Admin: 05/25/25 21:32 Dose: 25 mg Clozapine (Clozapine 100 Mg Tablet) 200 mg PO BEDTIME [facility] Last Admin: 06/09/25 22:46 Dose: 200 mg Empagliflozin (Empagliflozin 25 Mg Tablet) 25 mg PO DAILY [facility] Last Admin: 06/09/25 09:52 Dose: 25 mg Glipizide (Glipizide Xl 10 Mg Tab.Er.24) 10 mg PO DAILY [facility] Last Admin: 06/09/25 09:51 Dose: 10 mg Hydroxyzine HCl (Hydroxyzine Hcl 25 Mg Tablet) 25 mg PO Q6H PRN PRN Reason: mild anxiety Last Admin: 05/27/25 15:54 Dose: 25 mg Lorazepam (Lorazepam 0.5 Mg Tablet) 0.5 mg PO QID [facility] Last Admin: 06/09/25 22:48 Dose: 0.5 mg Magnesium Hydroxide (Milk Of Magnesia 30 Ml Oral.Susp) 30 ml PO DAILY PRN PRN Reason: Constipation Last Admin: 06/03/25 14:35 Dose: 30 ml Metformin HCl (Metformin Hcl 1,000 Mg Tablet) 1,000 mg PO BIDWM [facility] Last Admin: 06/09/25 17:29 Dose: 1,000 mg Multivitamins/Vitamin C (Multivitamin Tablet) 1 tab PO DAILY [facility] Last Admin: 06/09/25 09:52 Dose: 1 tab Naloxone HCl (Naloxone Hcl 0.4 Mg/Ml Vial) 0.04 mg IVPUSH Q5M PRN PRN Reason: Excessive sedation or RR < 8 Nicotine (Nicotine 21 Mg Patch.Td24) 21 mg TRANSDERMA DAILY PRN PRN Reason: nicotine craving Nicotine Polacrilex (Nicotine Polacrilex 2 Mg Gum) 2 mg BUCCAL Q2H PRN PRN Reason: Nicotine Cravings Sertraline HCl (Sertraline Hcl 100 Mg Tablet) 100 mg PO DAILY [facility] Last Admin: 06/09/25 09:52 Dose: 100 mg Sodium Chloride (0.9 % Sodium Chloride Flush 10 Ml Syringe) [facility]: 05/31/25 10:42 Last Admin: 05/31/25 11:02 Dose: Not Given Trazodone HCl (Trazodone Hcl 50 Mg Tablet) 50 mg PO BEDTIME MRX1 PRN PRN Reason: Insomnia Last Admin: 06/05/25 21:09 Dose: 50 mg Vitamin D (Cholecalciferol (Vitamin D3) 25 Mcg Tablet) 125 mcg PO TuSa@0900 KATEY Last Admin: 06/07/25 10:11 Dose: 125 mcg Allergies Allergies Allergy/AdvReac Type Severity Reaction Status Date / Time No Known Drug Allergies Allergy Unknown Verified 05/19/25 18:25 Assessment & Plan Assessment & Plan (1) Bipolar I disorder with catatonia: Status: Acute Code(s): F31.9 - Bipolar disorder, unspecified; F06.1 - Catatonic disorder due to known physiological condition (2) Generalized anxiety disorder: Status: Acute Code(s): F41.1 - Generalized anxiety disorder (3) Type 2 diabetes mellitus: Status: Chronic Code(s): E11.9 - Type 2 diabetes mellitus without complications Plan HPI: Patient is a 54-year-old male with history of bipolar disorder, catatonia who presents as a transfer from hospital on [facility] coming [place] [facility] [place] in the face of catatonia following a manic episode. Patient with significant catatonic features having a difficult time talking or moving until feature writer started patient on Ativan and amantadine. Patient says that he ended up coming to the hospital because he had paranoid, racing thoughts that people Were out to get me. Patient says he had some issues with his finances, Internet addiction and that people on it took him for a lot of money. He said his family is upset and suggested he go to the hospital. Patient reports that for some amount of that time he was having what sounds like a manic episode, with increased libido, mind racing, blurting out his thoughts, and high energy. Patient said he is still feeling some paranoid thoughts, like when he drove here to the hospital from [facility], thinking people in the other cars with looking at him, maybe people were trying to harm him because .of some of the things I have done.. Though patient could not articulate what those were. He also said that he has been thinking maybe his son and daughter are not who he thinks they are and that maybe his was a plant meaning a set up by some conspiracy when they met. Patient open to reality testing but mostly thinks these things are true. Currently denies AH but says he was having AH days earlier; continues to worry that perhaps people want to harm him; denies any SI or HI. Discussed ECT as treatment and patient agrees, after going over risks/side effects. Also discussed medication and he agrees to continue with Ativan and amantadine (reviewed risks/side-effects) Impression: Patient with both catatonic symptoms and paranoid ideations; catatonia seems to be significantly helped with Ativan and Amantadine which hopefully bridge him until he can get ECT. Holding Zyprexa which he has been taking for years, to mitigate risks of catatonia. Will consider Clozaril 05/21 Patient remains paranoid that people on the unit think [he is] a risk.. For being unsafe... Patient says he is feeling very anxious and is not sure how this happened.. He remains amenable to getting ECT and continuing with both Ativan and amantadine. Exit Booth Agent discussed clozapine, risks/side effects and he agrees to start -patient took shower today and attended a group 05/22 Patient says he is feeling more anxious and paranoid today which he thinks is partly due to the nightmares he had last night a people grabbing him. Patient lists his plans for the day which include showering, shaving and attending group. Patient wanted to review medications which was done and he continues to agree with plan including continued titration with clozapine. Talked about lithium which he had not been on before and seems to have been started at [facility] and patient agrees to hold this for now. -Discussed case with Dr. Rosado who agrees that patient's catatonia seems to be stabilized with medications for now but plan remains to proceed with ECT as patient is fragile and highly vulnerable to decompensation (patient has history of severe catatonia). -will continue to titrate clozapine as it can treat delusions, catatonia and act as a mood stabilizer -will hold lithium; only at 300 mg which is subtherapeutic dose can increase risk of side effects during ECT -will continue Lamictal 25 mg for now and assess whether not this is necessary 05/23 continue titrate clozapine; ECT planned for Monday -will titrate Clozapine by 25mg a day 05/24/25 Review with team, review of plan of care, met with pt x 2. Reports difficult sx, racing of thought- chlorpromazine prn ordered temporarily to help with sx mgt. Pt asked to meet later in the day with significant paranoia, I worked with you in [facility], why are you here? Explained and encouraged pt to utilize team and regime to help manage sx. Pt reports I will not hurt myself or anyone else, will anyone hurt me here? Assured pt he was safe on the unit. Thought blocking noted. Plan: Chlorpromazine prn 05/26 Patient continues to report, anxious thoughts saying that my paranoia is kicking in... And patient remains worried that peers on the unit may have bad intentions towards him; patient seems to benefit from reality testing. Discussed ECT and initially patient said he was hesitant and wanted to cancel it because he is afraid something might happen during the procedure however after talking it through patient agreed to continue plan. Will increase Clozaril to 125 mg q.h.s. and likely continue titrating -will discontinue Lamictal as it is an antiepileptic and was just recently started [facility]; lithium remains discontinued was also started there -other patients getting ECT will lower Ativan to 1.5 mg q.i.d. 05/27/25 ect number 1 tolerated pt depressed blunted slowed ect in am cont clozapine 05/29Met with patient; discussed with team Patient says he is feeling a little better today; he still has some paranoia but is able to reason that no one on the unit has hurt him thus far and perhaps he is not really danger from peers. Still has paranoid questions about whether or not his kids her actually his own kids. Agrees with continue treatment plan 05/30 patient remains doing better and feels more clear still with some paranoid ideations which seemed to be waning 05/31 Patient reports that he is overall feeling a little better. Discussed his history with being scammed on the Internet. -patient not sure if he was manic at the time; he says he thinks maybe he was however no one else observed any manic symptoms. -patient's mother explained that in 2022 patient got embroiled in On-line scam, which started as a relationship who got pt to invest in fake [email or web address] and patient lost $200,000 (from house sales, long-term fund...savings; ran up credit card debt and filed for bankruptcy) -the thing that troubles her is that even after knowing he was scammed first time, it happened again in 2023, and he again was scammed into a fake relationship on-line, with a person eventually asking for money of which he gave the last little bit of it Impression: It is curious that patient was scanned 2 times with the same scam even after the 1st time, meeting with police, filing for bankruptcy. If patient was not having a manic episode of the time, this is troubling for baseline struggle in ability to navigate the community 06/01 ctp; ECT saturday 06/02 patient doing very well today, looks like his regular self, with full range of expression. No paranoid ideations. Agrees to continue with ECT as he remains vulnerable to regression 06/03 patient did regress and is more confused today, with some speech latency and return of paranoid ideations, thinking that peers are spying on him which is making him quite anxious 06/04 Patient doing better today; he reports today is a better day that he is pretty sure that all the patients are simply just patients and that no one is spying on him. Discussed ECT treatments and he agrees to continue. 06/05: Pt reports improvement with ECT. Hoping to return to [facility] next week post discharge; Denies SI,HI, AH, VH; Has allowed application for [facility] services.; CPAP ordered 06/06 Patient post ECT today. He seemed and looked brighter and said he felt much more clear minded. Denied any delusional ideations and does not think that he is being spite on by patient's and did not remember having thoughts so. No delusions about his kids. Understands he will be here for continued ECT and that he may likely remain over the [place] holiday which he accepted. -did have some odd, confused moments, asking about it to get his laptop, asked about a printer, something about something being sent to [facility]... -order clozapine level * monitor for confusion. If confused over the weekend consider holding ECT on Thursday 06/07: Decrease Ativan to 0.5 mg given confusion and fall last night. Continue other management and treatment plan as is. 06/08: Consider 5 min checks as his dizziness improved after he is observed walking and he looks steady. Continue current management and treatment plan. 06/10/2025 Patient future oriented seems stable for discharge tomorrow does not seem to need further ECT at this time no catatonia no psychosis. Patient on clozapine no cycling sertraline lorazepam and amantadine had been added for catatonia with good effect. Will discharge patient on current regimen. Will be seen at [facility] and [facility] also strongly recommend patient have providers that he can see on the [facility] Plan: CV q15min Continue Amantadine 100mg bid (for catatonia) Ativan to 1 mg qid (for catatonia) Increased clozapine 200mg q.h.s.; will continue to titrate (for psychotic symptoms, catatonia and mood stability) hold zyprexa: Since risks catatonic symptoms Hold lithium: Subtherapeutic and can increase side effects during ECT ECT #5 on 06/04 ECT #6 on 06/06 ECT #7pending 06/06 Type 2 diabetes Continue with metformin, Jardiance, and Glucotrol A1c 6.9 Hyperlipidemia Continue aspirin and Lipitor Lipid panel within normal limits ECT risk stratification Patient without previous problems with anesthesia, has previously undergone ECT RCRI 0 points, no further cardiac workup or treatment indicated at this time based on available information Patient denies any past problems with anesthesia. Outside EKG demonstrates normal sinus rhythm with a QTC of 390, no evidence of ischemic changes. New EKG ordered. Based on stated PMH, HPI, and physical exam, there are no There are no obvious contraindications to the planned procedure. Reason for continued inpatient stay Substantial Risk for: inability to function and rapid decompensation Time Spent With Patient Time: Total time managing care of this patient today ____ minutes.
[2025-06-10] MEDS: glipiZIDE XL 10 MG TAB.ER.24 PO (09:55)
[2025-06-10 20:08] VITALS: BP 124/69; PULSE 114; TEMP 36.9; O2SAT 96
--- NOTE | 2025-06-11 07:04 | PC.RT ---
pt has been refusing to wear cpap therefore order will be dc'd per policy.
[2025-06-11 08:00] VITALS: BP 104/81; PULSE 107; TEMP 36.8; O2SAT 98
[2025-06-11] MEDS: glipiZIDE XL 10 MG TAB.ER.24 PO (09:04)
--- NOTE | 2025-06-11 10:51 | PM.PSYDC ---
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 olanzapine and treated with clozapine up to 200 mg amantadine was added for catatonia symptoms and lorazepam t.i.d. which was effective. Patient gradually became more forthcoming was not overly depressed and denied ongoing any clear manic symptoms. ANC had decreased to 2.65 time of discharge should be followed. Recommend evaluation for bipolar ongoing but no clear manic symptoms noted by patient had spent money in what he thought was relationship with a woman that he was in low with online but did not seem to be necessarily in the context of dileep patient referred to [facility] at [facility]. Patient picked up by his mother they will attend [facility] and [place] and an go back to [facility] family continues to be supportive Status at Discharge Cognitive/behavioral status at discharge: Alert oriented future oriented calm behavior no psychosis Overall status at discharge: patient is progressing back to baseline Time Spent with Patient Time attestation: Total time managing care of this patient today ____ minutes. Discharge Plan Discharge Anticipated Discharge Date/Time: 06/11/25 11:30 Patient Disposition: Home, Self-Care Discharge Diagnosis: major depression with psychosis catatonia r/o schizoaffective ? bipolar variant social anxiety dx Referrals: Dr Bjorn Davidson, PhD [Other] - 1 Week Referral Note: Dr Davidson has been updated as to your discharge plan. Please reach out to him following [facility]. Dr Tj oRsado MD [Other] - 1 Week Referral Note: Follow-up appointment with your psychiatrist [facility] [Other] - 06/16/25 8:30 am Referral Note: You have an upcoming intake appointment with clinical staff at [facility]. This is an intensive program, M-F, designed to enhance your skills, self awareness and improve your quality of life. Physician,Unknown J [Primary Care Provider, Medical] - 1 Week Discharge Medications: New amantadine HCl 100 mg Capsule 100 mg PO BID 30 Days Qty: 60 1RF clozapine 100 mg Tablet 200 mg PO BEDTIME 14 Days Qty: 28 1RF lorazepam 0.5 mg Tablet 0.5 mg PO QID 30 Days Qty: 120 0RF amantadine HCl 100 mg capsule 100 mg PO BID Qty: 60 1RF Continued multivitamin Tablet 1 tab PO DAILY 30 Days Qty: 30 0RF ascorbic acid (vitamin C) [Vitamin C] 1,000 mg Tablet 1,000 mg PO DAILY Qty: 30 0RF atorvastatin 20 mg tablet 20 mg PO BEDTIME 30 Days Qty: 30 1RF glipizide 10 mg tablet extended release 24hr 10 mg PO DAILY 30 Days Qty: 30 0RF sertraline 100 mg tablet 100 mg PO DAILY 30 Days Qty: 30 1RF metformin 1,000 mg tablet 1,000 mg PO BID 30 Days Qty: 60 0RF aspirin 81 mg tablet 81 mg PO DAILY 30 Days Qty: 30 1RF cholecalciferol (vitamin D3) 125 mcg (5,000 unit) Tablet 5,000 unit PO MOFR 30 Days Qty: 30 0RF Jardiance 25 mg tablet 25 mg PO DAILY 30 Days Qty: 30 1RF Discontinued lorazepam 1 mg tablet 1 mg PO Q6H PRN (Reason: Anxiety) lamotrigine 50 MG tablet 50 mg PO BEDTIME lithium carbonate [Lithobid] 300 mg Tablet Extended Release 300 mg PO BEDTIME [place] 3 Fish Oil 1,000 MG 1,000 mg PO DAILY olanzapine 2.5 mg tablet 2.5 mg PO DAILY PRN (Reason: anxiety/paranoia) Qty: 90 1RF olanzapine 5 mg tablet 5 mg PO BEDTIME Qty: 90 1RF Rx Instructions: Take a half tablet at bedtime may take additional half tablet daily as needed for anxiety/suspicious Discharge Orders: Discharge Order (Routine); Ordered 06/11/25 Ordered By: Tj Rosado Diet: Diabetic diet Activity on Discharge: As tolerated Stand Alone Forms: Patient Portal Discharge page, Community Support Print Language: Tanzanian Care Plan Goals: stabilize mood decrease impulsivity improve social anxiety Health Concerns: diabetes inc ldl Plan of Treatment: clozaril sertraline lorazepam Assessment: future oriented mood stable no paranoia no si Discharge Date/Time: 06/11/25 11:23
[2025-06-17 08:07] LABS: Clozapine (Clozaril) 702
--- NOTE | 2025-06-17 14:45 | HO.ECTPROC ---
ECT Procedure Note Diagnosis/Treatment Date of Service: 05/28/25 Diagnosis: Major Depressive Disorder Previous ECT Date: 05/26/25 Current Treatment Number: 2 Treatment: Series Interval Clinical Notes: The patient tolerated initial ECT with mild headache. 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 Patient treated bitemporally with good effect Time: Total time managing care of this patient today 30____ minutes. ECT Settings Device: THYMATRON DGx Electrode Placement: Bitemporal Program/Pulse Width: 0.50 Energy Percent: 100 Seizure Duration By EEG (in seconds): 62 Medications Administration General Anesthetic: Etomidate (14) Muscle Relaxant: Succinylcholine (100) Ancillary Medications Analgesics: Torodol - Pre ECT (30) Anti-emetics: Zofran - Pre ECT (4) Cardiovascular Medications: Glycopyrrolate Miscillaneous Medications: Propofol (30) Airway Management Airway Management: Bag Mask Ventilation Treatment Recommendations No Changes Recommended: No change Pt Tolerated Procedure w/o Issue: Yes
== END 2025-06-11 11:23 | disposition home or self-care (01) | DRG 885 ==
PROVIDERS: Family Medicine; Nurse Practitioner Psychiatric/Mental Health; Student in an Organized Health Care Education/Training Program; Admitting Provider Psychiatry & Neurology Psychiatry; Visit Provider Psychiatry & Neurology Psychiatry
PROC: GZB4ZZZ Other Electroconvulsive Therapy (ICD-10-PCS; CPT 90870; principal; 2025-05-26 15:00)
DX: F32.3 Major depressive disorder, single episode, severe with psychotic features (principal); F06.1 Catatonic disorder due to known physiological condition; F25.0 Schizoaffective disorder, bipolar type; E78.5 Hyperlipidemia, unspecified; F41.1 Generalized anxiety disorder; E11.9 Type 2 diabetes mellitus without complications; Z20.822 Contact with and (suspected) exposure to COVID-19; Z79.84 Long term (current) use of oral hypoglycemic drugs; Z79.85 Long-term (current) use of injectable non-insulin antidiabetic drugs; Z79.899 Other long term (current) drug therapy
CPT/HCPCS: 36415; 70450; 71045; 80053; 80061; 80159; 82550; 82565; 82607; 82746; 82947; 83036; 83605; 83735; 84439; 84443; 84484; 85025; 85048; 87633; 90870; 93005; 94660; J0330; J1596; J1885; J1920; J2405; J2704; J3360; J7120

== ENCOUNTER 2025-05-19 17:27 | Outpatient (BNV) | payer MEDICARE, MEDICAID, SELFPAY | END 2025-05-20 15:46 | PROVIDERS: Admitting Provider Psychiatry & Neurology Psychiatry; Visit Provider Internal Medicine | DX: R00.0 Tachycardia, unspecified (principal) | CPT/HCPCS: 93010 ==

== ENCOUNTER 2025-05-19 17:27 | Outpatient (BNV) | payer MEDICARE, MEDICAID, SELFPAY | END 2025-06-07 00:11 | PROVIDERS: Admitting Provider Psychiatry & Neurology Psychiatry; Visit Provider Student in an Organized Health Care Education/Training Program | DX: S00.03XA Contusion of scalp, initial encounter (principal); Z04.3 Encounter for examination and observation following other accident | CPT/HCPCS: 70450; 71045 ==

== ENCOUNTER → 2025-05-19 17:27 | Outpatient (BNV) | payer MEDICARE, MEDICAID, SELFPAY | PROVIDERS: Admitting Provider Psychiatry & Neurology Psychiatry; Visit Provider Nurse Practitioner Family | DX: F32.9 Major depressive disorder, single episode, unspecified (principal) | CPT/HCPCS: 99221 ==

== ENCOUNTER → 2025-05-19 17:27 | Outpatient (BNV) | payer MEDICARE, MEDICAID, SELFPAY | PROVIDERS: Admitting Provider Psychiatry & Neurology Psychiatry; Visit Provider Psychiatry & Neurology Psychiatry | DX: F31.4 Bipolar disorder, current episode depressed, severe, without psychotic features (principal); F06.1 Catatonic disorder due to known physiological condition; F40.10 Social phobia, unspecified; E11.9 Type 2 diabetes mellitus without complications; N18.9 Chronic kidney disease, unspecified; F32.9 Major depressive disorder, single episode, unspecified | CPT/HCPCS: 90792; 99232 ==

== ENCOUNTER → 2025-05-19 17:27 | Outpatient (BNV) | payer MEDICARE, MEDICAID, SELFPAY | PROVIDERS: Admitting Provider Psychiatry & Neurology Psychiatry; Visit Provider Psychiatry & Neurology Psychiatry | DX: F33.3 Major depressive disorder, recurrent, severe with psychotic symptoms (principal) | CPT/HCPCS: 90870 ==

== ENCOUNTER 2025-06-11 11:39 | Outpatient (REF) | payer MEDICARE, MEDICAID, SELFPAY ==
--- OUTSIDE RECORDS SUMMARY | 2025-06-11 11:43 | XMS_ITS | Clinical Summary ---
Author Organization [facility] Address [address] [address] Phone Care Team Providers Care Regulatory Compliance Specialist Name Role Phone Unavailable Primary Care Provider [...] AM EDT Office Visit [facility] [address] [place] [address] Shena Morgan, OD [address] [facility] [address] [place] [address] [email or web address] Health Maintenance Due Date Last Done Comments [...] It is not the complete legal health record.[facility]
[2025-06-11 11:48] LABS: MANUAL DIFF FLAG NO
[2025-06-11 12:26] LABS: Hematocrit 41.6 % (42.0-52.0); Hemoglobin 13.8 g/dl (14.0-18.0); Imm Gran Abs Auto 0.03 X10*3/uL (0.00-0.03); Imm Gran Pct Auto 0.6 % (0.0-0.4); Lymphocytes Absolute Auto 1.7 X10*3/uL (1.2-4.9); Mean Corpuscular HGB Conc 33.2 g/dl (31.0-36.0); Mean Corpuscular Hemoglobin 28.4 pg (27.0-33.0); Mean Corpuscular Volume 85.6 fL (80.0-98.0); NRBC Abs Auto 0.000 X10*3/uL (0.0-0.012); NRBC Pct Auto 0.0 /100WBC (0.0-0.2); Platelet Count 242 X10*3/uL (160-400); Red Blood Count 4.86 X10*6/uL (4.60-5.80); White Blood Count 5.3 X10*3/uL (4.8-10.8)
[2025-06-11 12:50] LABS: Alanine Aminotransferase 83 U/L (0-40); Albumin Level 4.7 g/dL (3.5-5.0); Alkaline Phosphatase 147 U/L (39-117); Anion Gap 16 (12-20); Aspartate Amino Transferase 49 U/L (5-37); Blood Urea Nitrogen 18 mg/dL (9-16); Calcium 10.2 mg/dL (8.4-10.2); Carbon Dioxide 25 mmol/L (22-29); Chloride 108 mmol/L (96-108); Estimated Glomerular Filt Rate > 60; Potassium 4.0 mmol/L (3.3-5.1); Sodium 145 mmol/L (135-145); Total Protein 7.2 g/dL (6.5-8.0)
== END 2025-06-11 11:40 | disposition home or self-care (01) ==
LOC: HO.LAB 11:39
PROVIDERS: PCP Internal Medicine; Visit Provider Psychiatry & Neurology Psychiatry
DX: E11.9 Type 2 diabetes mellitus without complications (principal); Z79.899 Other long term (current) drug therapy
CPT/HCPCS: 36415; 80053; 85025